=== PATIENT | male | born 1945 | race Caucasian/White ===

== ENCOUNTER 2017-08-07 13:49 | Inpatient (IN) | payer OTHER, MEDICARE ==
[2017-08-07] VITALS (12 sets, daily range): BP systolic 101–158; BP diastolic 63–100; PULSE 96–145; RESP 16–32; TEMP 99.3–99.9; O2SAT 92–98
[~2017-08-07 13:49] MED LIST: ALLO300T2 PO; ASPI81 PO; BACT800T5 PO; BETH25 PO; CARD4TAB2 PO; CIME400; CLIN150 PO; FISH1000 PO; FLON0.053; HUMALOG SQ; LANTUSP SQ; LEVO.15 PO; LORTA5 PO; OMEP20TA PO; RAMI5CAP36 PO; SIMV80TA PO; VITA400C28 PO; ZOLO50TA PO
[2017-08-07] MEDS ORDERED: VITA2000 PO (14:09)
[2017-08-07] MEDS ORDERED: PRAM0.5T PO (14:09)
[2017-08-07] MEDS ORDERED: ASPI-516 CHEW (14:09)
[2017-08-07] MEDS ORDERED: BETH25TA2 PO (14:09)
[2017-08-07] MEDS ORDERED: DOXA4TAB3 PO (14:09)
[2017-08-07] MEDS ORDERED: LANTUS2P SQ (14:09)
[2017-08-07] MEDS ORDERED: HUMALOG SQ (14:09)
[2017-08-07] MEDS ORDERED: RAMI5CAP PO (14:09)
[2017-08-07] MEDS ORDERED: PRIL20TA2 PO (14:09)
[2017-08-07] MEDS ORDERED: LEVO125T4 PO (14:09)
[2017-08-07] MEDS ORDERED: ATOR40TA16 PO (14:09)
[2017-08-07] MEDS ORDERED: TRAM-388 PO (14:09)
[2017-08-07] MEDS ORDERED: SERT-132 PO (14:09)
[2017-08-07] MEDS ORDERED: ALLO100T PO (14:09)
[2017-08-07] MEDS ORDERED: SODIUM CHLORIDE 0.9% FLUSH 10 ML FLUSH IVF PRN (14:30)
[2017-08-07 15:01] LABS: AUTOMATED NEUTROPHIL # 5.6 TH/MM3 (1.8-7.7); BASOPHIL % 0.2 % (0.0-2.0); EOSINOPHIL # 0.1 TH/MM3 (0-0.4); EOSINOPHIL % 1.5 % (0.0-4.0); HEMATOCRIT 36.3 % (39.0-51.0); HEMOGLOBIN 11.8 GM/DL (13.0-17.0); LYMPH % 15.9 % (9.0-44.0); LYMPHOCYTE # 1.2 TH/MM3 (1.0-4.8); MEAN CELL VOLUME 87.3 FL (80.0-100.0); MEAN CORPUSCULAR HEMOGLOBIN 28.3 PG (27.0-34.0); MEAN CORPUSCULAR HGB CONC 32.4 % (32.0-36.0); MEAN PLATELET VOLUME 8.2 FL (7.0-11.0); MONO % 9.1 % (0.0-8.0); MONOCYTE # 0.7 TH/MM3 (0-0.9); NEUT % 73.3 % (16.0-70.0); PLATELET COUNT 189 TH/MM3 (150-450); RED BLOOD COUNT 4.16 MIL/MM3 (4.50-5.90); RED CELL DISTRIBUTION WIDTH 18.6 % (11.6-17.2); WHITE BLOOD COUNT 7.7 TH/MM3 (4.0-11.0)
--- NOTE | 2017-08-07 15:02 | RADRPT ---
EXAM DATE/TIME: 08/07/2017 14:39 [place] COMPARISON: CHEST SINGLE AP, April 14, 2010, 13:14. INDICATIONS : Chest pain, shortness of breath MEDICAL HISTORY : Hypertension. SURGICAL HISTORY : None. ENCOUNTER: Initial ACUITY: 1 day PAIN SCORE: 3/10 LOCATION: chest FINDINGS: A single view of the chest demonstrates some increased interstitial markings bilaterally with promine nce of the pulmonary vasculature. No definite pleural effusions. The heart size is diffusely enlarged . The bony structures are grossly intact. CONCLUSION: Pulmonary venous congestion versus early edema. Moderate cardiomegaly.. Luiz Frey MD on August 07, 2017 at 14:59 Board Certified Radiologist. This report was verified electronically.
[2017-08-07 15:18] LABS: ALBUMIN 2.8 GM/DL (3.4-5.0); ALT (GPT) 25 U/L (12-78); AST (GOT) 17 U/L (15-37); BICARBONATE 23.3 MEQ/L (21.0-32.0); BLOOD UREA NITROGEN 25 MG/DL (7-18); CALCIUM 8.1 MG/DL (8.5-10.1); CHLORIDE 108 MEQ/L (98-107); GLOMERULAR FILTRATION RATE 40 ML/MIN (>89); GLUCOSE,RANDOM 200 MG/DL (74-106); SODIUM (NA) 139 MEQ/L (136-145)
[2017-08-07 15:20] LABS: ALKALINE PHOSPHATASE 54 U/L (45-117); TOTAL BILIRUBIN ADULT 0.7 MG/DL (0.2-1.0); TOTAL PROTEIN 6.4 GM/DL (6.4-8.2); TROPONIN I 0.17 NG/ML (0.02-0.05)
[2017-08-07] MEDS ORDERED: FUROSEMIDE 40 MG/4 ML VIAL IV PUSH ONE (16:15)
[2017-08-07] MEDS ORDERED: HEPARIN SODIUM - IV 10,000 UNITS/10 ML VIAL IV ONE ×2 (16:15→17:45)
[2017-08-07] MEDS ORDERED: HEPARIN-D5W 25,000 U/250 ML 250 ML IV PRN ×2 (16:15→17:45)
--- NOTE | 2017-08-07 16:30 | PD ---
HPI Chief Complaint: Cardiac Complaint Time Seen by Provider: 14:10 Travel History International Travel<30 days: No Contact w/Intl Traveler<30days: No Traveled to known affect area: No History of Present Illness HPI 72-year-old male came to the emergency room with history of substernal chest pressure that started yesterday. Patient says pain was 4-5 out of 10 at its worst without any radiation. Pain is even at rest. No aggravating or relieving factors identified. Patient has never had this kind of pain before. He also started getting shortness of breath. This of breath was present during rest but worse with exertion. Today when it can continued patient called EMS. He was given one sublingual nitroglycerin under the tongue and 2 baby aspirin which has eased his pain significantly. Currently is 1 out of 10. Vital signs are stable. Patient has history of high blood pressure but no history of coronary artery disease. He had a cardiac ablation done 7 years ago. He is not on any blood thinners. Patient is not a smoker. [facility] Past Medical History Narrative Medical List of his past medical, surgical, social and family history is reviewed from the nursing note. Blood Disorders: No Anxiety: No Depression: Yes Heart Rhythm Problems: Yes Cancer: No Cardiovascular Problems: Yes High Cholesterol: Yes Chest Pain: No Cerebrovascular Accident: Yes Diabetes: Yes Patient Takes Glucophage: No Diminished Hearing: No Endocrine: Yes Gastrointestinal Disorders: No GERD: Yes Genitourinary: No Hypertension: Yes Immune Disorder: No Implanted Vascular Access Dvce: No Musculoskeletal: No Neurologic: No Psychiatric: Yes Reproductive: No Respiratory: Yes Shingles: Yes Thyroid Disease: Yes Past Surgical History Abdominal Surgery: Yes Cholecystectomy: Yes Eye Surgery: Yes (L CATARACT) Genitourinary Surgery: Yes Other Surgery: Yes Social History Alcohol Use: No Tobacco Use: No Substance Use: No Allergies-Medications (Allergen,Severity, Reaction): Coded Allergies: penicillin G (Unverified Allergy, Severe, Hives, 05/20/17) *MDRO Multi-Drug Resistant Organism (Unverified Allergy, Unknown, 08/11/14) MRSA 2010, 2013 Comments List of his allergies reviewed from the nursing note. Reported Meds & Prescriptions Reported Meds & Active Scripts Active Reported Aspirin 81 Mg Chew 162 Mg CHEW DAILY Vitamin D3 (Cholecalciferol) 2,000 Unit Cap 2,000 Units PO DAILY Pramipexole (Pramipexole Dihydrochloride) 0.5 Mg Tab 0.5 Mg PO HS Tramadol-Acetaminophen 37.5-325 mg Tab 1 Tab PO Q6H PRN Atorvastatin (Atorvastatin Calcium) 40 Mg Tab 40 Mg PO HS Sertraline (Sertraline HCl) 50 Mg Tab 50 Mg PO DAILY Prilosec (Omeprazole Magnesium) 20 Mg Tab 20 Mg PO DAILY Humalog Inj (Insulin Human Lispro) 1,000 Unit/10 Ml Vial 0 SQ ACHS SLIDING SCALE Max dose at bedtime:( )units; sugars < 70,(0)units; sugars 150-199,(5)units; sugars 200-249,(10)units; sugars 250-299,(15)units; sugars 300-349,(20)units; sugars more than 349,(25)units. Levothyroxine (Levothyroxine Sodium) 125 Mcg Tab 125 Mcg PO DAILY Bethanechol 25 Mg Tab 25 Mg PO DAILY Doxazosin (Doxazosin Mesylate) 4 Mg Tab 4 Mg PO HS Allopurinol 100 Mg Tab 100 Mg PO DAILY Ramipril 5 Mg Cap 5 Mg PO DAILY Lantus Inj (Insulin Glargine) 1,000 Unit/10 Ml Vial 50 Units SQ BID Narrative Medication List of his home medications reviewed from the nursing note. Review of Systems Except as stated in HPI: all other systems reviewed are Neg Cardiovascular: Positive: Chest Pain or Discomfort Respiratory: Positive: Shortness of Breath Physical Exam Narrative GENERAL: Awake, alert, moderate distress, obese SKIN: Focused skin assessment warm/dry. HEAD: Atraumatic. Normocephalic. EYES: Pupils equal and round. No scleral icterus. No injection or drainage. ENT: No nasal bleeding or discharge. Mucous membranes pink and moist. NECK: Trachea midline. No JVD. CARDIOVASCULAR: Regular rate and rhythm. No murmur appreciated. RESPIRATORY: No accessory muscle use. Clear to auscultation. Breath sounds equal bilaterally. GASTROINTESTINAL: Abdomen soft, non-tender, nondistended. Hepatic and splenic margins not palpable. MUSCULOSKELETAL: No obvious deformities. No clubbing. No cyanosis. No edema. NEUROLOGICAL: Awake and alert. No obvious cranial nerve deficits. Motor grossly within normal limits. Normal speech. PSYCHIATRIC: Appropriate mood and affect; insight and judgment normal. Data Data Last Documented VS Vital Signs Date Time Temp Pulse Resp B/P (MAP) Pulse Ox O2 Delivery O2 Flow Rate FiO2 08/07/17 14:50 96 Nasal Cannula 2.00 08/07/17 13:59 26 08/07/17 13:55 99.9 98 121/63 (82) Orders Orders Electrocardiogram (08/07/17 14:22) B-Type Natriuretic Peptide (08/07/17 14:22) Ckmb (Isoenzyme) Profile (08/07/17 14:22) Complete Blood Count With Diff (08/07/17 14:22) Comprehensive Metabolic Panel (08/07/17 14:22) Magnesium (Mg) (08/07/17 14:22) Prothrombin Time / Inr (Pt) (08/07/17 14:22) Act Partial Throm Time (Ptt) (08/07/17 14:22) Troponin I (08/07/17 14:22) Chest, Single Ap (08/07/17 14:22) Ecg Monitoring (08/07/17 14:22) Bilateral Bp Monitoring (08/07/17 14:22) Iv Access Insert/Monitor (08/07/17 14:22) Oximetry (08/07/17 14:22) Oxygen Administration (08/07/17 14:22) Sodium Chloride 0.9% Flush (Ns Flush) (08/07/17 14:30) Furosemide Inj (Lasix Inj) (08/07/17 16:15) Heparin Infusion CRYSTAL.Q1H (08/07/17 16:10) Act Partial Throm Time (Ptt) (08/07/17 16:10) Cbc No Diff, Includes Plts (08/07/17 16:10) Cbc No Diff, Includes Plts (08/10/17 06:00) Act Partial Throm Time (Ptt) (08/07/17 23:10) Occult Blood (Hemoccult) Stool (08/07/17 16:10) Admit To Inpatient (08/07/17 ) Vital Signs (Adult) Q4H (08/07/17 17:00) Activity Oob With Assistance (08/07/17 17:00) Second Grade Teacher / Telemetry .CONTINUOUS (08/07/17 17:00) Intake + Output CRYSTAL.QSHIFT (08/07/17 17:00) Sodium Chloride 0.9% Flush (Ns Flush) (08/07/17 17:00) Sodium Chloride 0.9% Flush (Ns Flush) (08/07/17 21:00) Basic Metabolic Panel (Bmp) (08/08/17 06:00) Complete Blood Count With Diff (08/08/17 06:00) Creatine Kinase (Cpk) (08/07/17 20:40) Creatine Kinase (Cpk) (08/08/17 02:40) Troponin I (08/07/17 20:40) Troponin I (08/08/17 02:40) Electrocardiogram (08/07/17 20:40) Electrocardiogram (08/08/17 02:40) Case Management Consult (08/07/17 17:00) Naloxone Inj (Narcan Inj) (08/07/17 17:00) Inpatient Certification (08/07/17 ) Consult Cardiology (08/07/17 ) Admit Order (Ed Use Only) (08/07/17 17:02) Labs Laboratory Tests Test 08/07/17 14:40 08/07/17 16:18 White Blood Count 7.7 TH/MM3 Red Blood Count 4.16 MIL/MM3 Hemoglobin 11.8 GM/DL Hematocrit 36.3 % Mean Corpuscular Volume 87.3 FL Mean Corpuscular Hemoglobin 28.3 PG Mean Corpuscular Hemoglobin Concent 32.4 % Red Cell Distribution Width 18.6 % Platelet Count 189 TH/MM3 Mean Platelet Volume 8.2 FL Neutrophils (%) (Auto) 73.3 % Lymphocytes (%) (Auto) 15.9 % Monocytes (%) (Auto) 9.1 % Eosinophils (%) (Auto) 1.5 % Basophils (%) (Auto) 0.2 % Neutrophils # (Auto) 5.6 TH/MM3 Lymphocytes # (Auto) 1.2 TH/MM3 Monocytes # (Auto) 0.7 TH/MM3 Eosinophils # (Auto) 0.1 TH/MM3 Basophils # (Auto) 0.0 TH/MM3 CBC Comment DIFF FINAL Differential Comment Prothrombin Time 11.0 SEC Prothromb Time International Ratio 1.0 RATIO Activated Partial Thromboplast Time 28.2 SEC 28.6 SEC Blood Urea Nitrogen 25 MG/DL Creatinine 1.70 MG/DL Random Glucose 200 MG/DL Total Protein 6.4 GM/DL Albumin 2.8 GM/DL Calcium Level 8.1 MG/DL Magnesium Level 2.0 MG/DL Alkaline Phosphatase 54 U/L Aspartate Amino Transf (AST/SGOT) 17 U/L Alanine Aminotransferase (ALT/SGPT) 25 U/L Total Bilirubin 0.7 MG/DL Sodium Level 139 MEQ/L Potassium Level 4.5 MEQ/L Chloride Level 108 MEQ/L Carbon Dioxide Level 23.3 MEQ/L Anion Gap 8 MEQ/L Estimat Glomerular Filtration Rate 40 ML/MIN Total Creatine Kinase 72 U/L Troponin I 0.17 NG/ML B-Type Natriuretic Peptide 245 PG/ML MDM Medical Decision Making Medical Screen Exam Complete: Yes Emergency Medical Condition: Yes Medical Record Reviewed: Yes Interpretation(s) Twelve-lead EKG was reviewed by me. Normal sinus rhythm, normal axis, right bundle branch block. Heart rate of 96 bpm. Differential Diagnosis ACS, non-STEMI, unstable angina, CHF Narrative Course 4:15 PM blood test results are back. Troponin and BNP are elevated. I've given him 40 mg of IV Lasix and started him on heparin bolus and drip. Patient will need to be admitted to the CICU. Awaiting for the hospitalist to call back. Critical Care Narrative Aggregate critical care time was 30 minutes. Time to perform other separately billable procedures was not included in the critical care time. My time did not include minutes spent treating any other patients simultaneously or on activities that did not directly contribute to the patient's treatment. The services I provided to this patient were to treat and/or prevent clinically significant deterioration that could result in: Non-STEMI, heparin bolus and drip I provided critical care services requiring my management, as noted below: Chart data review, documentation time, medication orders and management, vital sign assessments/reviewing monitor data, ordering and reviewing lab tests, ordering and interpreting/reviewing x-rays and diagnostic studies, care of the patient and discussion of the patient with the admitting physicians. Procedures EKG Prior to Arrival: No Diagnosis Primary Impression: Non-STEMI (non-ST elevated myocardial infarction) Additional Impression: Congestive heart failure Qualified Codes: I50.9 - Heart failure, unspecified Admitting Information Admitting Physician Requests: Chandni Orellana MD Aug 07, 2017 16:30
[2017-08-07] MEDS ORDERED: NALOXONE HCL 0.4 MG/ML AMP IV PUSH PRN (17:00)
[2017-08-07] MEDS ORDERED: SODIUM CHLORIDE 0.9% FLUSH 10 ML FLUSH IV FLUSH PRN (17:00)
[2017-08-07] MEDS ORDERED: DILTIAZEM HCL 25 MG/5 ML VIAL IV ONE (19:30)
--- NOTE | 2017-08-07 19:30 | HHI.HP ---
[facility] Julian Hartman MD Admission Diagnosis non-STEMI, congestive heart failure Diagnoses: Travel History International Travel<30 Days: No Contact w/Intl Traveler <30 Da: No Traveled to Known Affected Are: No History of Present Illness hx from patient , er md, patient's er nurse and review of med records started yesterday, chest pain and shortness of breath started feeling better when ambulance came and given something this morning again, he has shortness of breath , and finally decided to call ems again and came today now the pain is more on left , yesterday was middle of chest pain no radiation of pain has chronic neck pain from arthritis - on pain managment docs with shots denies peirpheral edema no recent prolonged travels no blood in stool or urine at home but was started on heparin drip in ER and urine now is starting to have blood in urine no water pills at home no chf hx sees dr dias because he had ablation for afib no fever/ no nausea/ no vomiting/ no other symptoms has been having trouble trying to get up and roll over had a fall yesterday Review of Systems Except as stated in HPI: all other systems reviewed are Neg Past Family Social History Past Medical History htn dm afib sleep apnea on cpap at night not on anticoagulation apart from asa chronic kidney disease TIA hypothyroidism Past Surgical History coronary angiogram cardiac ablation cholecystectomy Allergies: Coded Allergies: penicillin G (Unverified Allergy, Severe, Hives, 05/20/17) *MDRO Multi-Drug Resistant Organism (Unverified Allergy, Unknown, 08/11/14) MRSA 2010, 2013 Family History mother- alzeimers dad- cad, stroke Social History never smoked no etoh drinking, no drugs still drives lives on his own, have a rn patient care Physical Exam Vital Signs Vital Signs Date Time Temp Pulse Resp B/P (MAP) Pulse Ox O2 Delivery O2 Flow Rate FiO2 08/07/17 18:53 144 08/07/17 17:28 96 16 158/100 (119) 95 08/07/17 14:50 96 Nasal Cannula 2.00 08/07/17 14:50 Room Air 08/07/17 13:59 26 95 Nasal Cannula 08/07/17 13:55 99.9 98 16 121/63 (82) 92 Physical Exam GENERAL: This is a well-nourished, well-developed patient, in no apparent distress.obese, cushionoid look SKIN: No rashes, ecchymoses or lesions. Cool and dry. HEAD: Atraumatic. Normocephalic. No temporal or scalp tenderness. EYES: No scleral icterus. No injection or drainage. ENT: Nose without bleeding, purulent drainage or septal hematoma. Airway patent. NECK: Trachea midline. No JVD CARDIOVASCULAR: Regular rate and rhythm without murmurs, gallops, or rubs. RESPIRATORY: bilaterally decreased air entry GASTROINTESTINAL: Abdomen soft, non-tender, nondistended.truncal obesity. No guarding. MUSCULOSKELETAL: Extremities without clubbing, cyanosis, or edema. No calf tenderness. NEUROLOGICAL: Awake and alert. Motor and sensory grossly within normal limits. Normal speech. Laboratory Laboratory Tests Test 08/07/17 14:40 08/07/17 16:18 White Blood Count 7.7 Red Blood Count 4.16 Hemoglobin 11.8 Hematocrit 36.3 Mean Corpuscular Volume 87.3 Mean Corpuscular Hemoglobin 28.3 Mean Corpuscular Hemoglobin Concent 32.4 Red Cell Distribution Width 18.6 Platelet Count 189 Mean Platelet Volume 8.2 Neutrophils (%) (Auto) 73.3 Lymphocytes (%) (Auto) 15.9 Monocytes (%) (Auto) 9.1 Eosinophils (%) (Auto) 1.5 Basophils (%) (Auto) 0.2 Neutrophils # (Auto) 5.6 Lymphocytes # (Auto) 1.2 Monocytes # (Auto) 0.7 Eosinophils # (Auto) 0.1 Basophils # (Auto) 0.0 CBC Comment DIFF FINAL Differential Comment Prothrombin Time 11.0 Prothromb Time International Ratio 1.0 Activated Partial Thromboplast Time 28.2 28.6 Blood Urea Nitrogen 25 Creatinine 1.70 Random Glucose 200 Total Protein 6.4 Albumin 2.8 Calcium Level 8.1 Magnesium Level 2.0 Alkaline Phosphatase 54 Aspartate Amino Transf (AST/SGOT) 17 Alanine Aminotransferase (ALT/SGPT) 25 Total Bilirubin 0.7 Sodium Level 139 Potassium Level 4.5 Chloride Level 108 Carbon Dioxide Level 23.3 Anion Gap 8 Estimat Glomerular Filtration Rate 40 Total Creatine Kinase 72 Troponin I 0.17 B-Type Natriuretic Peptide 245 Result Diagram: 08/07/17 1440 08/07/17 1440 Imaging Last 48 hours Impressions Chest X-Ray 08/07/17 1422 Signed Impressions: Service Date/Time: August 14:39 - CONCLUSION: Pulmonary venous congestion versus early edema. Moderate cardiomegaly.. MD Rosamaria Gongora VTE Risk Assessment Caprini VTE Risk Assessment: Mod/High Risk (score >= 2) Caprini Risk Assessment Model Point Value = 1 Point Value = 2 Point Value = 3 Point Value = 5 Age 41-60 Minor surgery BMI > 25 kg/m2 Swollen legs Varicose veins or History of unexplained or recurrent spontaneous Oral contraceptives or hormone replacement Sepsis (< 1 month) Serious lung disease, including pneumonia (< 1 month) Abnormal pulmonary function Acute myocardial infarction Congestive heart failure (< 1 month) History of inflammatory bowel disease Medical patient at bed rest Age 61-74 Arthroscopic surgery Major open surgery (> 45 min) Laparoscopic surgery (> 45 min) Malignancy Confined to bed (> 72 hours) Immobilizing plaster cast Central venous access Age >= 75 History of VTE Family history of VTE Factor V Leiden Prothrombin [id number] Lupus anticoagulant Anticardiolipin antibodies Elevated serum homocysteine Heparin-induced thrombocytopenia Other congenital or acquired thrombophilia Stroke (< 1 month) Elective arthroplasty Hip, pelvis, or leg fracture Acute spinal cord injury (< 1 month) Prophylaxis Regimen Total Risk Factor Score Risk Level Prophylaxis Regimen 0-1 Low Early ambulation 2 Moderate Order ONE of the following: *Sequential Compression Device (SCD) *Heparin 5000 units SQ BID 3-4 Higher Order ONE of the following medications: *Heparin 5000 units SQ TID *Enoxaparin/Lovenox 40 mg SQ daily (WT < 150 kg, CrCl > 30 mL/min) *Enoxaparin/Lovenox 30 mg SQ daily (WT < 150 kg, CrCl > 10-29 mL/min) *Enoxaparin/Lovenox 30 mg SQ BID (WT < 150 kg, CrCl > 30 mL/min) AND/OR *Sequential Compression Device (SCD) 5 or more Highest Order ONE of the following medications: *Heparin 5000 units SQ TID (Preferred with Epidurals) *Enoxaparin/Lovenox 40 mg SQ daily (WT < 150 kg, CrCl > 30 mL/min) *Enoxaparin/Lovenox 30 mg SQ daily (WT < 150 kg, CrCl > 10-29 mL/min) *Enoxaparin/Lovenox 30 mg SQ BID (WT < 150 kg, CrCl > 30 mL/min) AND *Sequential Compression Device (SCD) Assessment and Plan Assessment and Plan Impression: chest pain- NSTEMI dyspnea- likely from CHF hematuria while on heparin in ER afib with RVR in ER_ likely from dyspnea, pain, missing meds co morbid conditions: htn dm afib sleep apnea on cpap at night not on anticoagulation apart from asa chronic kidney disease TIA hypothyroidism Plan: serial enzymes and ekg heparin drip to d.[facility] start cardizem drip tele monitoring monitor for hgb/hct VQ scan in am echo in am cardio consult resume cpap resume home meds dvt prophylaxis- scd - as pt now has hematuria Discussed Condition With patient, ER MD, ER nurse Physician Certification 2 Midnight Certification Type: Admission for Inpatient Services Order for Inpatient Services The services are ordered in accordance with Medicare regulations or non- Medicare payer requirements, as applicable. In the case of services not specified as inpatient-only, they are appropriately provided as inpatient services in accordance with the 2-midnight benchmark. Estimated LOS (days): 4 days is the estimated time the patient will need to remain in the hospital, assuming treatment plan goals are met and no additional complications. Post-Hospital Plan: Home Traci Carmona MD Aug 07, 2017 19:30
[2017-08-07] MEDS: DILTIAZEM INJ 125 MG in SODIUM CHLORIDE 0.9% INJ 100 ML IV PRN (20:47)
[2017-08-07] MEDS ORDERED: NON-FORMULARY DRUG (Pramipexole 0.5 MG) PO SCH (21:00)
[2017-08-07 21:48] LABS: HEMATOCRIT 40.1 % (39.0-51.0); HEMOGLOBIN 13.1 GM/DL (13.0-17.0); MEAN CELL VOLUME 87.3 FL (80.0-100.0); MEAN CORPUSCULAR HEMOGLOBIN 28.4 PG (27.0-34.0); MEAN CORPUSCULAR HGB CONC 32.5 % (32.0-36.0); MEAN PLATELET VOLUME 8.4 FL (7.0-11.0); PLATELET COUNT 211 TH/MM3 (150-450); RED BLOOD COUNT 4.59 MIL/MM3 (4.50-5.90); RED CELL DISTRIBUTION WIDTH 18.4 % (11.6-17.2); WHITE BLOOD COUNT 8.7 TH/MM3 (4.0-11.0)
[2017-08-07 22:10] LABS: TROPONIN I 0.25 NG/ML (0.02-0.05)
[2017-08-07] MEDS ORDERED: HEPARIN SODIUM - IV 10,000 UNITS/10 ML VIAL IV PRN ×4 (22:15→23:45)
[2017-08-07] MEDS ORDERED: METOPROLOL TARTRATE 5 MG/5 ML VIAL IV PUSH ONE (23:30)
[2017-08-07] MEDS ORDERED: GLUCAGON 1 MG/ML VIAL OTHER PRN (23:30)
[2017-08-07] MEDS ORDERED: DEXTROSE 50% IN WATER 50 ML VIAL(D50) IV PUSH PRN (23:30)
[2017-08-08] VITALS (18 sets, daily range): BP systolic 78–143; BP diastolic 56–93; PULSE 85–136; RESP 14–18; TEMP 97.4–98.7; O2SAT 93–98
[2017-08-08] MEDS: traMADol/ACETAMINOPHEN 37.5/325 1 TAB PO PRN ×3 (00:44→13:57)
[2017-08-08 03:52] LABS: AUTOMATED NEUTROPHIL # 4.4 TH/MM3 (1.8-7.7); BASOPHIL % 0.2 % (0.0-2.0); EOSINOPHIL # 0.1 TH/MM3 (0-0.4); EOSINOPHIL % 1.6 % (0.0-4.0); HEMATOCRIT 36.8 % (39.0-51.0); HEMOGLOBIN 11.8 GM/DL (13.0-17.0); LYMPH % 20.9 % (9.0-44.0); LYMPHOCYTE # 1.4 TH/MM3 (1.0-4.8); MEAN CELL VOLUME 88.1 FL (80.0-100.0); MEAN CORPUSCULAR HEMOGLOBIN 28.2 PG (27.0-34.0); MEAN CORPUSCULAR HGB CONC 32.1 % (32.0-36.0); MEAN PLATELET VOLUME 8.4 FL (7.0-11.0); MONO % 9.6 % (0.0-8.0); MONOCYTE # 0.6 TH/MM3 (0-0.9); NEUT % 67.7 % (16.0-70.0); PLATELET COUNT 179 TH/MM3 (150-450); RED BLOOD COUNT 4.18 MIL/MM3 (4.50-5.90); RED CELL DISTRIBUTION WIDTH 18.2 % (11.6-17.2); WHITE BLOOD COUNT 6.6 TH/MM3 (4.0-11.0)
[2017-08-08 04:21] LABS: BICARBONATE 26.5 MEQ/L (21.0-32.0); CALCIUM 8.2 MG/DL (8.5-10.1); CREATININE 2.17 MG/DL (0.60-1.30)
[2017-08-08 04:22] LABS: TROPONIN I 0.17 NG/ML (0.02-0.05)
[2017-08-08] MEDS: DILTIAZEM INJ 125 MG in SODIUM CHLORIDE 0.9% INJ 100 ML IV PRN (04:48)
[2017-08-08] MEDS: LEVOTHYROXINE SODIUM 125 MCG TAB PO SCH (06:38)
[2017-08-08] MEDS: INSULIN ASPART SUPPLEMENTAL SCALE SQ SCH ×4 (08:00→20:22)
[2017-08-08] MEDS: BETHANECHOL CHL 25 MG TAB PO SCH (09:00)
[2017-08-08] MEDS: SODIUM CHLORIDE 0.9% FLUSH 10 ML FLUSH IV FLUSH SCH ×2 (09:00→20:23)
[2017-08-08] MEDS ORDERED: NON-FORMULARY DRUG (Omeprazole Magnesium (Prilosec) 20 MG) PO SCH (09:00)
--- NOTE | 2017-08-08 09:33 | EKG ---
Date Performed: 08/07/2017 Time Performed: 18:51:15 PTAGE: 72 years EKG: ATRIAL FIBRILLATION WITH RAPID VENTRICULAR RESPONSE WITH ABERRANT CONDUCTION OR VENTRICULAR PREMATURE COMPLEXES RIGHT BUNDLE BRANCH BLOCK LEFT POSTERIOR FASCICULAR BLOCK ABNORMAL ECG PREVIOUS TRACING : 08/07/2017 14.01 Since previous tracing, atrial fibrillation with rapid vent ricular response has replaced Sinus rhythm . DOCTOR: René Bond Interpretating Date/Time 08/08/2017 09:33:08
--- NOTE | 2017-08-08 09:33 | EKG ---
Date Performed: 08/07/2017 Time Performed: 14:01:04 PTAGE: 72 years EKG: Sinus rhythm Right bundle branch block ABNORMAL ECG PREVIOUS TRACING : 06/27/2010 05.59 Compared to prior tracing no significant change DOCTOR: René Bond Interpretating Date/Time 08/08/2017 09:31:55
--- NOTE | 2017-08-08 09:43 | HHI.PR ---
Subjective Remarks This is a pleasant 72 y/o Male who came to ER with Chest pain, he has chronic neck pain from OA on Pain management with injections, started on Heparin drip in ER, he follows with Doctor Jose for Atrial Fibrillation Ablation, has Hypertension, DM II, Atrial Fibrillation, MUNA on CPAP at night, CKD TIA, Hypothyroidism, status post Cardiac Ablation, Admitted with diagnosis of NSTEMI and Cardiology consult in place. Patient seen by Doctor Terry Adler with diagnosis of Elevated troponin and atypical chest pain recommended for V/Q scan to rule out PE was performed and low probability for PE , he will have further ischemic workup by Cardiology stress test vs cardiac cath, seen in his bedroom in the presence of nurse Miss Aviles. Objective Vital Signs Date Time Temp Pulse Resp B/P (MAP) Pulse Ox O2 Delivery O2 Flow Rate FiO2 08/08/17 07:00 97.9 94 16 140/83 (102) 93 08/08/17 07:00 95 08/08/17 04:48 88 129/78 08/08/17 04:18 96 129/78 08/08/17 04:17 98.7 96 18 129/78 (95) 94 08/08/17 02:00 116 08/08/17 01:51 97 35 08/08/17 01:36 98.7 115 18 116/78 (91) 94 08/08/17 01:20 78/56 (63) 08/08/17 01:20 120 78/56 08/08/17 01:00 118 08/08/17 00:00 136 08/07/17 23:40 141 08/07/17 23:38 99.3 145 18 127/91 (103) 95 08/07/17 23:19 142 132/73 08/07/17 22:50 95 35 08/07/17 22:35 138 127/91 08/07/17 21:30 128 28 144/87 (106) 98 Nasal Cannula 4.00 08/07/17 21:15 136 26 114/79 (91) 98 Nasal Cannula 4.00 08/07/17 21:00 133 32 101/73 (82) 97 Nasal Cannula 4.00 08/07/17 20:52 134 30 137/80 (99) 97 Nasal Cannula 4.00 08/07/17 20:50 136 137/80 08/07/17 20:47 142 104/78 08/07/17 20:45 142 28 104/78 (87) 96 Nasal Cannula 3.00 08/07/17 18:53 144 08/07/17 17:28 96 16 158/100 (119) 95 08/07/17 14:50 96 Nasal Cannula 2.00 08/07/17 14:50 Room Air 08/07/17 13:59 26 95 Nasal Cannula 08/07/17 13:55 99.9 98 16 121/63 (82) 92 I/O 08/07/17 08/07/17 08/07/17 08/08/17 08/08/17 08/08/17 07:00 15:00 23:00 07:00 15:00 23:00 Intake Total 240 ml Output Total 0 ml Balance 240 ml Intake Oral 240 ml Output Urine Total 0 ml Result Diagram: 08/08/1730608/08/17306 Imaging Last Impressions Chest X-Ray 08/07/171421 Signed Impressions: Service Date/Time: August 14:39 - CONCLUSION: Pulmonary venous congestion versus early edema. Moderate cardiomegaly.. Luiz Frey MD Procedures None Other Results Laboratory Tests Test 08/07/17 14:40 08/07/17 20:20 08/08/17 03:01 08/08/17 03:07 Prothrombin Time 11.0 SEC Prothromb Time International Ratio 1.0 RATIO Blood Urea Nitrogen 25 MG/DL 35 MG/DL Creatinine 1.70 MG/DL 2.17 MG/DL Random Glucose 200 MG/DL 363 MG/DL Total Protein 6.4 GM/DL Albumin 2.8 GM/DL Calcium Level 8.1 MG/DL 8.2 MG/DL Magnesium Level 2.0 MG/DL Alkaline Phosphatase 54 U/L Aspartate Amino Transf (AST/SGOT) 17 U/L Alanine Aminotransferase (ALT/SGPT) 25 U/L Total Bilirubin 0.7 MG/DL Sodium Level 139 MEQ/L 140 MEQ/L Potassium Level 4.5 MEQ/L 4.3 MEQ/L Chloride Level 108 MEQ/L 104 MEQ/L Carbon Dioxide Level 23.3 MEQ/L 26.5 MEQ/L B-Type Natriuretic Peptide 245 PG/ML Activated Partial Thromboplast Time 62.3 SEC Total Creatine Kinase 70 U/L Troponin I 0.17 NG/ML White Blood Count 6.6 TH/MM3 Red Blood Count 4.18 MIL/MM3 Hemoglobin 11.8 GM/DL Hematocrit 36.8 % Mean Corpuscular Volume 88.1 FL Mean Corpuscular Hemoglobin 28.2 PG Mean Corpuscular Hemoglobin Concent 32.1 % Red Cell Distribution Width 18.2 % Platelet Count 179 TH/MM3 Mean Platelet Volume 8.4 FL Neutrophils (%) (Auto) 67.7 % Lymphocytes (%) (Auto) 20.9 % Monocytes (%) (Auto) 9.6 % Eosinophils (%) (Auto) 1.6 % Basophils (%) (Auto) 0.2 % Neutrophils # (Auto) 4.4 TH/MM3 Lymphocytes # (Auto) 1.4 TH/MM3 Monocytes # (Auto) 0.6 TH/MM3 Eosinophils # (Auto) 0.1 TH/MM3 Basophils # (Auto) 0.0 TH/MM3 CBC Comment DIFF FINAL Differential Comment Anion Gap 10 MEQ/L Estimat Glomerular Filtration Rate 30 ML/MIN Objective Remarks GENERAL: This is a well-nourished, well-developed patient, in no apparent distress.obese. SKIN: No rashes, ecchymoses or lesions. Cool and dry. HEAD: Atraumatic. Normocephalic. No temporal or scalp tenderness. EYES: No scleral icterus. No injection or drainage. ENT: Nose without bleeding, purulent drainage or septal hematoma. Airway patent. NECK: Trachea midline. No JVD CARDIOVASCULAR: Regular rate and rhythm without murmurs, gallops, or rubs. RESPIRATORY: bilaterally decreased air entry GASTROINTESTINAL: Abdomen soft, non-tender, nondistended.truncal obesity. No guarding. MUSCULOSKELETAL: Extremities without clubbing, cyanosis, or edema. No calf tenderness. NEUROLOGICAL: Awake and alert. Motor and sensory grossly within normal limits. Normal speech. Medications and IVs Current Medications Medications (Trade) Dose Ordered Sig/Az Route Start Time Stop Time Status Last Admin (NS Flush) 2 ml UNSCH PRN IV FLUSH 08/07/17 17:00 (NS Flush) 2 ml BID IV FLUSH 08/07/17 21:00 (Narcan Inj) 0.4 mg UNSCH PRN IV PUSH 08/07/17 17:00 Diltiazem HCl 125 mg/Sodium Chloride 125 ml @ 5 mls/hr TITRATE PRN IV 08/07/17 19:30 08/08/17 04:48 (Zyloprim) 100 mg DAILY PO 08/08/17 09:00 (Lipitor) 40 mg HS PO 08/07/17 21:00 (Urecholine) 25 mg DAILY PO 08/08/17 09:00 (Cardura) 4 mg HS PO 08/07/17 21:00 (Synthroid) 125 mcg DAILY@0600 PO 08/08/17 06:00 08/08/17 06:38 (Altace) 5 mg DAILY PO 08/08/17 09:00 (Zoloft) 50 mg DAILY PO 08/08/17 09:00 (Ultracet 37.5-325 Mg) 1 tab Q6H PRN PO 08/07/17 19:45 08/08/17 06:36 (Protonix) 20 mg DAILY PO 08/08/17 09:00 (Mirapex) 0.5 mg HS PO 08/07/17 21:00 (D50w (Vial) Inj) 50 ml UNSCH PRN IV PUSH 08/07/17 23:30 (Glucagon Inj) 1 mg UNSCH PRN OTHER 08/07/17 23:30 (NovoLOG SUPPLEMENTAL SCALE) 1 ACHS SLIDING SCALE SQ 08/08/17 08:00 A/P Assessment and Plan 1. NSTEMI Hospitalized, on Cardiac Enzymes, Cardiac monitoring, Heparin drip, Cardizem drip, V/Q scan, Echocardiogram, Patient seen by Doctor Terry Adler with diagnosis of Elevated troponin and atypical chest pain recommended for V/Q scan to rule out PE was performed and low probability for PE, he will have further ischemic workup by Cardiology stress test vs cardiac cath, 2. Hematuria while on Heparin, will need further Urologic workup as outpatient. 3. Atrial Fibrillation with RVR on Cardizem drip, History of Cardiac ablation. 4. Hypertension controlled. 5. DM II Uncontrolled sliding scale, Cardiac and Diabetic Diet. Hemoglobin A1C 6. MUNA on CPAP at night 7. CKD III 8. Hypothyroidism continue Hormonal replacement. DVT prophylaxis with SCDs due to Hematuria. Discharge Planning Once cleared by operations staff specialist security. Martin Hays MD Aug 08, 2017 09:43
[2017-08-08] MEDS: ALLOPURINOL 100 MG TAB PO SCH (09:47)
[2017-08-08] MEDS: PANTOPRAZOLE SOD 20 MG DELAYED RELEASE TAB PO SCH (09:47)
[2017-08-08] MEDS: RAMIPRIL 5 MG CAP PO SCH (09:47)
[2017-08-08] MEDS: SERTRALINE HCL 50 MG TAB PO SCH (09:47)
--- NOTE | 2017-08-08 11:22 | MB ---
cc: TERRY KELLY DO DATE OF CONSULTATION 08/08/2017 REASON FOR CONSULTATION Chest pain with elevated troponins. HISTORY OF PRESENT ILLNESS Pedro Otto is a pleasant 72-year-old male who states that around two days ago he started getting pain in the lower part of his chest. He was also noticing he was short of breath. He said that the pain was somewhat achy versus sharp, but not stabbing in nature. It did not radiate anywhere. An ambulance was called and he decided he would stay home. He then started noticing around 24 hours later that the pain was back and now was somewhat on to the left side of the chest. He started noticing once again that he was short of breath and because of this he decided he would report to the emergency room. While here, he was found to have a mildly elevated troponin peaking at 0.25. He was started on a heparin drip and did notice some hematuria. Lastly, he presented in normal sinus rhythm, but then went into atrial fibrillation with rapid ventricular response. He is currently on a Cardizem drip which has controlled his rate. PAST MEDICAL HISTORY 1. History of atrial fibrillation. 2. Diabetes mellitus 3. Chronic kidney disease 4. Hypertension 5. Sleep apnea on C-PAP at night 6. TIA 7. Hypothyroidism PAST SURGICAL HISTORY 1. Atrial flutter ablation (June 26, 2010) 2. Cholecystectomy ALLERGIES PENICILLIN MEDICATIONS 1. Bethanechol 25 mg daily 2. Lipitor 40 mg every night 3. Doxazosin 4 mg every night 4. Ramipril 5 mg daily 5. Aspirin 162 mg daily 6. Tramadol/acetaminophen 37.5/325 every 6 hours as needed for pain. 7. Sertraline 50 mg daily 8. Pramipexole 0.5 mg every night 9. Omeprazole 20 mg daily 10. Lantus 50 units b.i.d. 11. Humalog sliding scale 12. Synthroid 125 mcg daily 13. Allopurinol 100 mg daily FAMILY HISTORY Denies premature coronary artery disease or sudden cardiac within the family. SOCIAL HISTORY The patient never smoked. He denies a history of alcohol or drug abuse. 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 REVIEW OF SYSTEMS 14-systems were reviewed including osteopathic pertinent positives and negatives as above otherwise negative. PHYSICAL EXAMINATION VITAL SIGNS: Temperature 98.7, heart rate 96, blood pressure 129/78, respirations 18, pulse ox 94% on 4 liters. GENERAL: The patient appears well in no acute distress, alert awake and oriented x3. Extraocular muscles intact. Mucous membranes moist. NECK: Supple. No JVD at 45 degrees. No carotid bruits heard bilaterally. Carotid upstroke is brisk in nature. HEART: Irregularly irregular. Positive first and second heart sounds with a 1/6 holosystolic murmur noted at the apex. LUNGS: Clear to auscultation bilaterally. No wheezes, rales or rhonchi. ABDOMEN: Soft, nontender and nondistended. No organomegaly noted. EXTREMITIES: Show no clubbing, cyanosis or edema. Femoral and distal pulses intact bilaterally. NEUROLOGIC: No focal deficits. SKIN: Warm, dry and intact. OSTEOPATHIC: No kyphoscoliosis, lordosis or paraspinal tender points. LABORATORY FINDINGS Hemoglobin 11.8, hematocrit 36.8, platelets 179. Potassium 4.3, BUN 35, creatinine 2.17, troponin 0.25. BNP 245. Electrocardiogram (August 07, 2017 at 1851) atrial fibrillation with rapid ventricular response, right bundle branch block, left posterior fascicular block. IMPRESSIONS 1. Elevated troponin, possible type 1 versus type 2 2. Chest pain atypical for coronary insufficiency. 3. Dyspnea on exertion and at rest. 4. Hematuria while on heparin drip. 5. History of atrial fibrillation status post atrial flutter ablation (2009) now in atrial fibrillation with rapid ventricular response. 6. Diabetes mellitus 7. Hypertension 8. Sleep apnea on C-PAP 9. Chronic kidney disease 10. TIA 11. Hypothyroidism RECOMMENDATIONS 1. Mr. Otto presented with atypical chest pain which has removed from the lower part of his chest into the mid part of his chest and is associated with shortness of breath. I feel that it is reasonable to consider VQ scan to rule out possible pulmonary embolus. 2. If negative for pulmonary embolus, we will discuss with him further about ischemic workup of stress testing versus cardiac catheterization. 3. It appears now that he is in atrial fibrillation and started on Cardizem drip, we will plan on placing him on Cardizem p.o. to further try to rate control him. 4. He has a CHADS-VASc score of five and may need to be anticoagulated for his atrial fibrillation depending on the hospital course. 5. Because of the hematuria, he eventually should be evaluated from a urological standpoint whether inpatient or outpatient to rule out possible abnormalities or malignancies from a bladder standpoint. 6. Further recommendations will be made based on the hospital course. Thank you for allowing me to see Pedro Otto. If there are any questions, please do not hesitate to call. Terry Kelly DO VGP/DJL /10:29 AM /11:09 AM
--- NOTE | 2017-08-08 12:10 | RADRPT ---
EXAM DATE/TIME: 08/08/2017 11:19 [facility] COMPARISON: CHEST SINGLE AP, August 07, 2017, 14:39. INDICATIONS : Chest pain and dyspnea. DOSE: 8.5 mCi Tc99m MAA IV 0.5 mCi Tc99m DTPA aerosol MEDICAL HISTORY : Diabetes mellitus type 2. Hypertension. Congestive heart failure. SURGICAL HISTORY : Cholecystectomy. Ablation. ENCOUNTER: Initial ACUITY: 2 days PAIN SCALE: 4/10 LOCATION: chest TECHNIQUE: Following five minutes of tidal breathing of DTPA aerosol, planar images of the lungs were performed in eight projections. The patient was then injected with MAA, and eight-view perfusion scan was perf ormed. FINDINGS: The comparison chest x-ray examination demonstrated pulmonary venous congestion versus early pulmonar y edema. There is a diffusely inhomogeneous pattern of aerosol delivery throughout both lungs. No large focal ventilatory defects are seen. The perfusion lung scan demonstrates a homogenous pattern of uptake in both lungs. No segmental or s ubsegmental defects are seen. CONCLUSION: Low probability for pulmonary embolism. John Neville MD on August 08, 2017 at 12:07 Board Certified Radiologist. This report was verified electronically.
[2017-08-08] MEDS: DILTIAZEM HCL 60 MG TAB PO SCH ×3 (12:18→23:54)
[2017-08-08] MEDS: PRAMIPEXOLE DIHYDROCHLORIDE 0.25 MG TAB PO SCH ×2 (20:22→20:25)
[2017-08-08] MEDS: ATORVASTATIN 40 MG TAB PO SCH ×2 (20:22→20:25)
[2017-08-08] MEDS: DOXAZOSIN MESYLATE 4 MG TAB PO SCH ×2 (20:22→20:25)
[2017-08-09] VITALS (24 sets, daily range): BP systolic 115–147; BP diastolic 62–88; PULSE 71–126; RESP 14–20; TEMP 97.8–98.2; O2SAT 92–98
[2017-08-09] MEDS: traMADol/ACETAMINOPHEN 37.5/325 1 TAB PO PRN ×2 (00:04→23:32)
[2017-08-09] MEDS: DILTIAZEM HCL 60 MG TAB PO SCH ×4 (05:31→23:32)
[2017-08-09] MEDS: LEVOTHYROXINE SODIUM 125 MCG TAB PO SCH (05:31)
[2017-08-09] MEDS: ALLOPURINOL 100 MG TAB PO SCH (09:40)
[2017-08-09] MEDS: RAMIPRIL 5 MG CAP PO SCH (09:41)
[2017-08-09] MEDS: ASPIRIN 81 MG CHEW TAB CHEW SCH (09:41)
[2017-08-09] MEDS: SODIUM CHLORIDE 0.9% FLUSH 10 ML FLUSH IV FLUSH SCH ×2 (09:41→20:11)
[2017-08-09] MEDS: SERTRALINE HCL 50 MG TAB PO SCH (09:41)
[2017-08-09] MEDS: PANTOPRAZOLE SOD 20 MG DELAYED RELEASE TAB PO SCH (09:41)
[2017-08-09] MEDS: INSULIN ASPART SUPPLEMENTAL SCALE SQ SCH ×4 (09:41→20:20)
[2017-08-09] MEDS: BETHANECHOL CHL 25 MG TAB PO SCH (09:48)
--- NOTE | 2017-08-09 11:26 | HHI.PR ---
Subjective Remarks This is a pleasant 72 y/o Male who came to ER with Chest pain, he has chronic neck pain from OA on Pain management with injections, started on Heparin drip in ER, he follows with Doctor Jose for Atrial Fibrillation Ablation, has Hypertension, DM II, Atrial Fibrillation, MUNA on CPAP at night, CKD TIA, Hypothyroidism, status post Cardiac Ablation, Admitted with diagnosis of NSTEMI and Cardiology consult in place. Patient seen by Doctor Terry Adler with diagnosis of Elevated troponin and atypical chest pain recommended for V/Q scan to rule out PE was performed and low probability for PE , he will have further ischemic workup by Cardiology stress test vs cardiac cath, seen in his bedroom in the presence of nurse Miss Aviles. 08/09: Seen in his bedroom in the presence of nurse Miss Quiñones, biology specialist doctor Terry Adler In to see the patient recommended for Cardiac Stress test for tomorrow morning. Atrial Fibrillation now in sinus rhythm resolved hematuria for outpatient Urology workup to rule out malignancy. no nausea, vomit or diarrhea. Objective Vital Signs Date Time Temp Pulse Resp B/P (MAP) Pulse Ox O2 Delivery O2 Flow Rate FiO2 08/09/17 08:45 88 08/09/17 08:45 98.1 85 20 132/75 (94) 94 08/09/17 06:00 86 08/09/17 05:00 116 08/09/17 05:00 98.2 115 14 147/88 (107) 98 08/09/17 04:00 110 08/09/17 03:00 112 08/09/17 02:00 122 08/09/17 01:00 116 08/09/17 00:20 98.2 113 14 130/73 (92) 98 08/09/17 00:19 96 35 08/09/17 00:19 96 BiPAP 35 08/09/17 00:00 126 08/08/17 23:00 103 08/08/17 22:00 106 08/08/17 21:13 98.0 109 14 143/93 (110) 98 08/08/17 21:00 104 08/08/17 20:00 112 08/08/17 19:00 97 08/08/17 17:36 94 Nasal Cannula 2.00 08/08/17 15:00 85 08/08/17 15:00 97.4 85 14 118/79 (92) 94 08/08/17 14:59 14 I/O 08/08/17 08/08/17 08/08/17 08/09/17 08/09/17 08/09/17 07:00 15:00 23:00 07:00 15:00 23:00 Intake Total 240 ml 800 ml Output Total 0 ml 450 ml Balance 240 ml 800 ml -450 ml Intake Oral 240 ml 800 ml Output Urine Total 0 ml 450 ml # Voids 7 # Bowel Movements 1 Result Diagram: 08/08/17 0307 08/08/17 0307 Imaging Last Impressions Lung Scan-VQ Nuclear Medicine 08/08/17 0000 Signed Impressions: Service Date/Time: Tuesday, August 08, 2017 11:19 - CONCLUSION: Low probability for pulmonary embolism. John Neville MD Chest X-Ray 08/07/17 1422 Signed Impressions: Service Date/Time: August 14:39 - CONCLUSION: Pulmonary venous congestion versus early edema. Moderate cardiomegaly.. Luiz Frey MD Procedures None Other Results Laboratory Tests Test 08/07/17 14:40 08/07/17 20:20 08/08/17 03:01 08/08/17 03:07 Prothrombin Time 11.0 SEC Prothromb Time International Ratio 1.0 RATIO Blood Urea Nitrogen 25 MG/DL 35 MG/DL Creatinine 1.70 MG/DL 2.17 MG/DL Random Glucose 200 MG/DL 363 MG/DL Total Protein 6.4 GM/DL Albumin 2.8 GM/DL Calcium Level 8.1 MG/DL 8.2 MG/DL Magnesium Level 2.0 MG/DL Alkaline Phosphatase 54 U/L Aspartate Amino Transf (AST/SGOT) 17 U/L Alanine Aminotransferase (ALT/SGPT) 25 U/L Total Bilirubin 0.7 MG/DL Sodium Level 139 MEQ/L 140 MEQ/L Potassium Level 4.5 MEQ/L 4.3 MEQ/L Chloride Level 108 MEQ/L 104 MEQ/L Carbon Dioxide Level 23.3 MEQ/L 26.5 MEQ/L B-Type Natriuretic Peptide 245 PG/ML Activated Partial Thromboplast Time 62.3 SEC Total Creatine Kinase 70 U/L Troponin I 0.17 NG/ML White Blood Count 6.6 TH/MM3 Red Blood Count 4.18 MIL/MM3 Hemoglobin 11.8 GM/DL Hematocrit 36.8 % Mean Corpuscular Volume 88.1 FL Mean Corpuscular Hemoglobin 28.2 PG Mean Corpuscular Hemoglobin Concent 32.1 % Red Cell Distribution Width 18.2 % Platelet Count 179 TH/MM3 Mean Platelet Volume 8.4 FL Neutrophils (%) (Auto) 67.7 % Lymphocytes (%) (Auto) 20.9 % Monocytes (%) (Auto) 9.6 % Eosinophils (%) (Auto) 1.6 % Basophils (%) (Auto) 0.2 % Neutrophils # (Auto) 4.4 TH/MM3 Lymphocytes # (Auto) 1.4 TH/MM3 Monocytes # (Auto) 0.6 TH/MM3 Eosinophils # (Auto) 0.1 TH/MM3 Basophils # (Auto) 0.0 TH/MM3 CBC Comment DIFF FINAL Differential Comment Anion Gap 10 MEQ/L Estimat Glomerular Filtration Rate 30 ML/MIN Objective Remarks GENERAL: Obese patient in no acute distress. SKIN: No rashes, ecchymoses or lesions. Cool and dry. HEAD: Atraumatic. Normocephalic. No temporal or scalp tenderness. EYES: No scleral icterus. No injection or drainage. ENT: Nose without bleeding, purulent drainage or septal hematoma. Airway patent. NECK: Trachea midline. No JVD CARDIOVASCULAR: Regular rate and rhythm without murmurs, gallops, or rubs. RESPIRATORY: bilaterally decreased air entry GASTROINTESTINAL: Abdomen soft, non-tender, nondistended.truncal obesity. No guarding. MUSCULOSKELETAL: Extremities without clubbing, cyanosis, or edema. No calf tenderness. NEUROLOGICAL: Awake and alert. Motor and sensory grossly within normal limits. Normal speech. Medications and IVs Current Medications Medications (Trade) Dose Ordered Sig/Az Route Start Time Stop Time Status Last Admin (NS Flush) 2 ml UNSCH PRN IV FLUSH 08/07/17 17:00 (NS Flush) 2 ml BID IV FLUSH 08/07/17 21:00 08/09/17 09:41 (Narcan Inj) 0.4 mg UNSCH PRN IV PUSH 08/07/17 17:00 Diltiazem HCl 125 mg/Sodium Chloride 125 ml @ 5 mls/hr TITRATE PRN IV 08/07/17 19:30 08/08/17 04:48 (Zyloprim) 100 mg DAILY PO 08/08/17 09:00 08/09/17 09:40 (Lipitor) 40 mg HS PO 08/07/17 21:00 08/08/17 20:25 (Urecholine) 25 mg DAILY PO 08/08/17 09:00 08/09/17 09:48 (Cardura) 4 mg HS PO 08/07/17 21:00 08/08/17 20:25 (Synthroid) 125 mcg DAILY@0600 PO 08/08/17 06:00 08/09/17 05:31 (Altace) 5 mg DAILY PO 08/08/17 09:00 08/09/17 09:41 (Zoloft) 50 mg DAILY PO 08/08/17 09:00 08/09/17 09:41 (Ultracet 37.5-325 Mg) 1 tab Q6H PRN PO 08/07/17 19:45 08/09/17 00:04 (Protonix) 20 mg DAILY PO 08/08/17 09:00 08/09/17 09:41 (Mirapex) 0.5 mg HS PO 08/07/17 21:00 08/08/17 20:25 (D50w (Vial) Inj) 50 ml UNSCH PRN IV PUSH 08/07/17 23:30 (Glucagon Inj) 1 mg UNSCH PRN OTHER 08/07/17 23:30 (Aspirin Chew) 81 mg DAILY CHEW 08/09/17 09:00 08/09/17 09:41 (Cardizem) 60 mg Q6HR PO 08/08/17 12:00 08/09/17 05:31 (NovoLOG SUPPLEMENTAL SCALE) 1 ACHS SLIDING SCALE SQ 08/09/17 12:00 UNV (NovoLOG INJ) 5 units TIDAC SQ 08/09/17 12:00 UNV (Levemir Inj) 10 units BID SQ 08/09/17 12:00 UNV A/P Assessment and Plan 1. NSTEMI Hospitalized, on Cardiac Enzymes, Cardiac monitoring, Heparin drip, Cardizem drip, V/Q scan, Echocardiogram, Patient seen by Doctor Terry Adler with diagnosis of Elevated troponin and atypical chest pain recommended for V/Q scan to rule out PE was performed and low probability for PE, he will have further ischemic workup recommended for Stress test for tomorrow. 2. Hematuria while on Heparin, will need further Urologic workup as outpatient. 3. Atrial Fibrillation with RVR on Cardizem by mouth, History of Cardiac ablation. 4. Hypertension controlled. 5. DM II Uncontrolled Sliding scale to Medium dose, Levemir 10 units every 12 hours and scheduled 5 units with every meal and follow closely try to keep blood sugar between 140 to 180 gr/dl doing better now 240 mg/dl 6. MUNA on CPAP at night 7. CKD III stable. 8. Hypothyroidism continue Hormonal replacement. DVT prophylaxis with SCDs due to Hematuria. Discharge Planning Once cleared by biology specialist. Martin Hays MD Aug 09, 2017 11:26
[2017-08-09] MEDS: INSULIN DETEMIR 100 UNITS/ML VIAL SQ SCH ×2 (12:00→20:14)
[2017-08-09] MEDS: INSULIN ASPART 1,000 UNITS/10 ML VIAL SQ SCH ×2 (12:25→16:59)
[2017-08-09 13:42] LABS: HEMOGLOBIN A1C 10.4 % (4.3-6.0)
--- NOTE | 2017-08-09 15:37 | PD.CARD.PN ---
Subjective Subjective Remarks No events overnight Converted to normal sinus rhythm, Cardizem drip turned off Objective Medications Current Medications Medications (Trade) Dose Ordered Sig/Az Route Start Time Stop Time Status Last Admin (NS Flush) 2 ml UNSCH PRN IV FLUSH 08/07/17 17:00 (NS Flush) 2 ml BID IV FLUSH 08/07/17 21:00 08/09/17 09:41 (Narcan Inj) 0.4 mg UNSCH PRN IV PUSH 08/07/17 17:00 Diltiazem HCl 125 mg/Sodium Chloride 125 ml @ 5 mls/hr TITRATE PRN IV 08/07/17 19:30 08/08/17 04:48 (Zyloprim) 100 mg DAILY PO 08/08/17 09:00 08/09/17 09:40 (Lipitor) 40 mg HS PO 08/07/17 21:00 08/08/17 20:25 (Urecholine) 25 mg DAILY PO 08/08/17 09:00 08/09/17 09:48 (Cardura) 4 mg HS PO 08/07/17 21:00 08/08/17 20:25 (Synthroid) 125 mcg DAILY@0600 PO 08/08/17 06:00 08/09/17 05:31 (Altace) 5 mg DAILY PO 08/08/17 09:00 08/09/17 09:41 (Zoloft) 50 mg DAILY PO 08/08/17 09:00 08/09/17 09:41 (Ultracet 37.5-325 Mg) 1 tab Q6H PRN PO 08/07/17 19:45 08/09/17 00:04 (Protonix) 20 mg DAILY PO 08/08/17 09:00 08/09/17 09:41 (Mirapex) 0.5 mg HS PO 08/07/17 21:00 08/08/17 20:25 (D50w (Vial) Inj) 50 ml UNSCH PRN IV PUSH 08/07/17 23:30 (Glucagon Inj) 1 mg UNSCH PRN OTHER 08/07/17 23:30 (Aspirin Chew) 81 mg DAILY CHEW 08/09/17 09:00 08/09/17 09:41 (Cardizem) 60 mg Q6HR PO 08/08/17 12:00 08/09/17 12:25 (NovoLOG SUPPLEMENTAL SCALE) 1 ACHS SLIDING SCALE SQ 08/09/17 12:00 08/09/17 12:26 (NovoLOG INJ) 5 units TIDAC SQ 08/09/17 12:00 08/09/17 12:25 (Levemir Inj) 10 units BID SQ 08/09/17 12:00 08/09/17 12:00 Vital Signs / I&O Vital Signs Date Time Temp Pulse Resp B/P (MAP) Pulse Ox O2 Delivery O2 Flow Rate FiO2 08/09/17 14:00 79 08/09/17 13:04 81 08/09/17 12:47 79 08/09/17 11:41 Nasal Cannula 2.00 08/09/17 11:15 79 08/09/17 11:15 98.0 75 20 127/75 (92) 93 08/09/17 10:00 85 08/09/17 09:00 76 08/09/17 08:45 88 08/09/17 08:45 98.1 85 20 132/75 (94) 94 08/09/17 06:00 86 08/09/17 05:00 116 08/09/17 05:00 98.2 115 14 147/88 (107) 98 08/09/17 04:00 110 08/09/17 03:00 112 08/09/17 02:00 122 08/09/17 01:00 116 08/09/17 00:20 98.2 113 14 130/73 (92) 98 08/09/17 00:19 96 35 08/09/17 00:19 96 BiPAP 35 08/09/17 00:00 126 08/08/17 23:00 103 08/08/17 22:00 106 08/08/17 21:13 98.0 109 14 143/93 (110) 98 08/08/17 21:00 104 08/08/17 20:00 112 08/08/17 19:00 97 08/08/17 17:36 94 Nasal Cannula 2.00 I/O 08/08/17 08/08/17 08/08/17 08/09/17 08/09/17 08/09/17 07:00 15:00 23:00 07:00 15:00 23:00 Intake Total 240 ml 800 ml Output Total 0 ml 450 ml Balance 240 ml 800 ml -450 ml Intake Oral 240 ml 800 ml Output Urine Total 0 ml 450 ml # Voids 7 # Bowel Movements 1 Physical Exam GENERAL: NAD, AAOx3 SKIN: Warm and dry. HEAD: Atraumatic. Normocephalic. EYES: Pupils equal and round. No scleral icterus. No injection or drainage. ENT: No nasal bleeding or discharge. Mucous membranes pink and moist. NECK: Trachea midline. No JVD. CARDIOVASCULAR: Regular rate and rhythm. RESPIRATORY: No accessory muscle use. Clear to auscultation. Breath sounds equal bilaterally. GASTROINTESTINAL: Abdomen soft, non-tender, nondistended. Hepatic and splenic margins not palpable. MUSCULOSKELETAL: Extremities without clubbing, cyanosis, or edema. No obvious deformities. NEUROLOGICAL: Awake and alert. No obvious cranial nerve deficits. Motor grossly within normal limits. Five out of 5 muscle strength in the arms and legs. Normal speech. PSYCHIATRIC: Appropriate mood and affect; insight and judgment normal. Laboratory Laboratory Tests Test 08/09/17 04:12 Hemoglobin A1c 10.4 % Assessment and Plan Problem List: (1) PAF (paroxysmal atrial fibrillation) ICD Codes: I48.0 - Paroxysmal atrial fibrillation (2) Elevated troponin ICD Codes: R74.8 - Abnormal levels of other serum enzymes (3) History of TIA (transient ischemic attack) ICD Codes: Z86.73 - History of TIA (transient ischemic attack) Status: Acute (4) Chronic kidney disease, stage III (moderate) ICD Codes: N18.3 - Chronic kidney disease, stage III (moderate) Status: Acute (5) Hypertension ICD Codes: I10 - Hypertension Status: Acute Assessment and Plan 1) Atypical chest pain with mild elevation of troponin Possible type 1 vs 2 May be due to going back into atrial fibrillation Plan for cardiac stress test tomorrow morning 2) Afib Converted to normal sinus rhythm CHADVASc = 5 Will consider anticoagulation, but concern with hematuria Con't Cardizem PO 3) Hematuria Resolved Should have eventual Urology workup to rule out malignancy Terry Adler DO Aug 09, 2017 15:37
[2017-08-09 18:26] LABS: AUTOMATED NEUTROPHIL # 4.6 TH/MM3 (1.8-7.7); BASOPHIL % 0.3 % (0.0-2.0); EOSINOPHIL # 0.1 TH/MM3 (0-0.4); EOSINOPHIL % 1.7 % (0.0-4.0); HEMATOCRIT 36.4 % (39.0-51.0); HEMOGLOBIN 11.9 GM/DL (13.0-17.0); LYMPH % 18.8 % (9.0-44.0); LYMPHOCYTE # 1.2 TH/MM3 (1.0-4.8); MEAN CELL VOLUME 87.3 FL (80.0-100.0); MEAN CORPUSCULAR HEMOGLOBIN 28.5 PG (27.0-34.0); MEAN CORPUSCULAR HGB CONC 32.6 % (32.0-36.0); MONO % 9.1 % (0.0-8.0); MONOCYTE # 0.6 TH/MM3 (0-0.9); NEUT % 70.1 % (16.0-70.0); PLATELET COUNT 211 TH/MM3 (150-450); RED BLOOD COUNT 4.17 MIL/MM3 (4.50-5.90); RED CELL DISTRIBUTION WIDTH 18.4 % (11.6-17.2); WHITE BLOOD COUNT 6.6 TH/MM3 (4.0-11.0)
--- NOTE | 2017-08-09 18:43 | ECHRPT ---
Indication: chf CONCLUSIONS The left ventricular systolic function is mildly reduced with an estimated ejection fraction in the range of 45- 50%. Normal left ventricular size. There is assymetric septal hypertrophy. Trace to mild mitral valve regurgitation. No aortic valve regurgitation. There is mild tricuspid valve regurgitation. The estimated pulmonary arterial pressure is 32.8 mmHg. BP: / HR: Rhythm: MEASUREMENTS (Male / Female) Normal Values Technical Quality:Fair 2D ECHO LV Diastolic Diameter PLAX 4.5 cm 4.2 - 5.9 / 3.9 - 5.3 cm LV Systolic Diameter PLAX 3.6 cm IVS Diastolic Thickness 1.6 cm 0.6 - 1.0 / 0.6 - 0.9 cm LVPW Diastolic Thickness 0.9 cm 0.6 - 1.0 / 0.6 - 0.9 cm LV Relative Wall Thickness 0.6 RV Internal Dim ED PLAX 3.1 cm M-MODE Aortic Root Diameter MM 3.0 cm LA Systolic Diameter MM 4.2 cm LA Ao Ratio MM 1.4 AV Cusp Separation MM 2.0 cm DOPPLER LV E' Lateral Velocity 8.0 cm/s LV E' Septal Velocity 7.8 cm/s TR Peak Velocity 239.0 cm/s TR Peak Gradient 22.8 mmHg Right Atrial Pressure 10.0 mmHg Pulmonary Artery Systolic Pressu 32.8 mmHg Right Ventricular Systolic Press 32.8 mmHg FINDINGS LEFT VENTRICLE The left ventricular systolic function is mildly reduced with an estimated ejection fraction in the range of 45- 50%. Normal left ventricular size. There is assymetric septal hypertrophy. RIGHT VENTRICLE Normal right ventricular size and systolic function. LEFT ATRIUM The left atrial size is normal. RIGHT ATRIUM The right atrial size is normal. ATRIAL SEPTUM Normal atrial septal thickness without atrial level shunting by limited color doppler interrogation. AORTA The aortic root and proximal ascending aorta are normal in size on limited imaging. MITRAL VALVE Mild mitral valve regurgitation. Structurally normal mitral valve. AORTIC VALVE Trileaflet aortic valve. No aortic valve regurgitation. TRICUSPID VALVE Structurally normal tricuspid valve. There is mild tricuspid valve regurgitation. The estimated pulmonary arterial pressure is 32.8 mmHg. PULMONARY VALVE No pulmonary valve regurgitation or stenosis. VESSELS The inferior vena cava is normal in size. PERICARDIUM No pericardial effusion. Rex Bowers MD, FACC, [facility] [place] (Electronically Signed) Final Date:09 August 2017 18:42
[2017-08-09 19:14] LABS: BICARBONATE 26.9 MEQ/L (21.0-32.0); CALCIUM 8.5 MG/DL (8.5-10.1); CREATININE 2.22 MG/DL (0.60-1.30)
[2017-08-09] MEDS: DOXAZOSIN MESYLATE 4 MG TAB PO SCH (20:10)
[2017-08-09] MEDS: ATORVASTATIN 40 MG TAB PO SCH (20:10)
[2017-08-09] MEDS: PRAMIPEXOLE DIHYDROCHLORIDE 0.25 MG TAB PO SCH (20:10)
[2017-08-10] VITALS (23 sets, daily range): BP systolic 105–148; BP diastolic 59–92; PULSE 66–100; RESP 18–20; TEMP 97.5–98.2; O2SAT 94–98
[2017-08-10] MEDS: LEVOTHYROXINE SODIUM 125 MCG TAB PO SCH (05:20)
[2017-08-10] MEDS: DILTIAZEM HCL 60 MG TAB PO SCH ×4 (05:20→23:06)
[2017-08-10 07:06] LABS: HEMATOCRIT 38.5 % (39.0-51.0); HEMOGLOBIN 12.5 GM/DL (13.0-17.0); MEAN CELL VOLUME 87.3 FL (80.0-100.0); MEAN CORPUSCULAR HEMOGLOBIN 28.3 PG (27.0-34.0); MEAN CORPUSCULAR HGB CONC 32.4 % (32.0-36.0); MEAN PLATELET VOLUME 7.9 FL (7.0-11.0); PLATELET COUNT 203 TH/MM3 (150-450); RED BLOOD COUNT 4.41 MIL/MM3 (4.50-5.90); RED CELL DISTRIBUTION WIDTH 18.1 % (11.6-17.2)
[2017-08-10] MEDS: INSULIN ASPART SUPPLEMENTAL SCALE SQ SCH ×4 (08:00→19:59)
[2017-08-10] MEDS: INSULIN ASPART 1,000 UNITS/10 ML VIAL SQ SCH ×3 (08:00→17:11)
[2017-08-10] MEDS: RAMIPRIL 5 MG CAP PO SCH (08:59)
[2017-08-10] MEDS: ALLOPURINOL 100 MG TAB PO SCH (08:59)
[2017-08-10] MEDS: BETHANECHOL CHL 25 MG TAB PO SCH (08:59)
[2017-08-10] MEDS: ASPIRIN 81 MG CHEW TAB CHEW SCH (08:59)
[2017-08-10] MEDS: SERTRALINE HCL 50 MG TAB PO SCH (08:59)
[2017-08-10] MEDS: PANTOPRAZOLE SOD 20 MG DELAYED RELEASE TAB PO SCH (09:00)
[2017-08-10] MEDS: SODIUM CHLORIDE 0.9% FLUSH 10 ML FLUSH IV FLUSH SCH ×2 (09:00→19:55)
[2017-08-10] MEDS: INSULIN DETEMIR 100 UNITS/ML VIAL SQ SCH ×2 (09:00→19:59)
[2017-08-10] MEDS ORDERED: REGADENOSON INJ 0.4 MG/5 ML SYR ONE (09:56)
--- NOTE | 2017-08-10 11:10 | EKG ---
Date Performed: 08/08/2017 Time Performed: 02:35:08 PTAGE: 72 years EKG: Atrial fibrillation with rapid ventricular response Right axis deviation Right bundle branc h block Abnormal ECG PREVIOUS TRACING : 08/07/2017 18.51 DOCTOR: Rex Bowers Interpretating Date/Time 08/10/2017 11:10:24
--- NOTE | 2017-08-10 11:11 | RADRPT ---
EXAM DATE/TIME: 08/10/2017 09:42 [place] COMPARISON: No previous studies available for comparison. INDICATIONS : Substernal chest pain with dyspnea. Angina. Atrial fibrillation. DOSE: 30 mCi Tc99m Myoview at stress. 10 mCi Tc99m Myoview at rest. 0.4 mg Lexiscan STRESS SYMPTOMS: Dyspnea and nausea. EJECTION FRACTION: 43% MEDICAL HISTORY : Hypertension. Diabetes mellitus type 2. Hypothyroidism. SURGICAL HISTORY : Cholecystectomy. Cardiac ablation. ENCOUNTER: Initial ACUITY: 2 days PAIN SCALE: 5/10 LOCATION: Substernal chest TECHNIQUE: The patient underwent pharmacologic stress with infusion of prescribed dose. Continuous ECG tracing was monitored during stress. Gated SPECT imaging was performed after stress and conventional SPECT i maging was performed at rest. The examination was performed on a SPECT/CT scanner, both attenuation and non-corrected datasets were reviewed. FINDINGS: DISTRIBUTION: The maximum perfused segment at stress is in the <mid posterior wall. PERFUSION STUDY: The pattern of perfusion at stress is within normal limits. The chamber does appear to be dilated. GATED STUDY: There is intact wall motion and thickening with global hypokinesia. CONCLUSION: The left ventricular chamber is dilated with global hypokinesis. Ejection fraction 43%. No large infa rcts are noted.. RISK CATEGORY: Intermediate (1-3% Annual Mortality Rate) Kenan Arita MD on August 10, 2017 at 11:05 Board Certified Radiologist. This report was verified electronically.
--- NOTE | 2017-08-10 12:46 | HHI.PR ---
Subjective Remarks This is a pleasant 72 y/o Male who came to ER with Chest pain, he has chronic neck pain from OA on Pain management with injections, started on Heparin drip in ER, he follows with Doctor Jose for Atrial Fibrillation Ablation, has Hypertension, DM II, Atrial Fibrillation, MUNA on CPAP at night, CKD TIA, Hypothyroidism, status post Cardiac Ablation, Admitted with diagnosis of NSTEMI and Cardiology consult in place. Patient seen by Doctor Terry Adler with diagnosis of Elevated troponin and atypical chest pain recommended for V/Q scan to rule out PE was performed and low probability for PE , he will have further ischemic workup by Cardiology stress test vs cardiac cath, seen in his bedroom in the presence of nurse Miss Aviles. 08/09: Seen in his bedroom in the presence of nurse Miss Quiñones, media reconciliation specialist doctor Terry Adler In to see the patient recommended for Cardiac Stress test for tomorrow morning. Atrial Fibrillation now in sinus rhythm resolved hematuria for outpatient Urology workup to rule out malignancy. 08/10: Stable in his bedroom awaiting for Stress test later today, discussed with nurse Miss Quiñones, no nausea, vomit or diarrhea. Objective Vital Signs Date Time Temp Pulse Resp B/P (MAP) Pulse Ox O2 Delivery O2 Flow Rate FiO2 08/10/17 12:15 73 08/10/17 11:15 96 Room Air 08/10/17 11:15 70 08/10/17 11:15 97.6 72 18 116/66 (83) 96 08/10/17 08:00 97.5 70 20 130/85 (100) 98 08/10/17 08:00 98 Nasal Cannula 2.00 08/10/17 08:00 75 08/10/17 06:00 66 08/10/17 05:00 69 08/10/17 04:00 98.2 72 18 105/63 (77) 95 08/10/17 04:00 72 08/10/17 04:00 Room Air 08/10/17 03:00 71 08/10/17 02:00 72 08/10/17 01:00 73 08/10/17 00:45 94 21 08/10/17 00:00 Room Air 08/10/17 00:00 98.1 73 20 148/92 (110) 95 08/10/17 00:00 73 08/09/17 23:00 75 08/09/17 22:00 72 08/09/17 21:00 73 08/09/17 20:00 72 08/09/17 20:00 Room Air 08/09/17 20:00 97.9 72 20 132/62 (85) 94 08/09/17 18:13 73 08/09/17 17:04 74 08/09/17 16:18 71 08/09/17 15:15 97.8 75 20 115/62 (79) 92 08/09/17 15:15 76 08/09/17 14:00 79 08/09/17 13:04 81 08/09/17 12:47 79 I/O 08/09/17 08/09/17 08/09/17 08/10/17 08/10/17 08/10/17 07:00 15:00 23:00 07:00 15:00 23:00 Intake Total 600 ml 480 ml Output Total 450 ml 500 ml 650 ml Balance -450 ml 100 ml -170 ml Intake Oral 600 ml 480 ml Output Urine Total 450 ml 500 ml 650 ml # Bowel Movements 1 0 Result Diagram: 08/10/17 0646 08/09/17 1754 Imaging Last Impressions Myocardial Perfusion Scan Nuc Med 08/10/17 0000 Signed Impressions: Service Date/Time: Thursday, August 10, 2017 09:42 - CONCLUSION: The left ventricular chamber is dilated with global hypokinesis. Ejection fraction 43%% . No large infarcts are noted.. RISK CATEGORY: Intermediate (1-3%% Annual Mortality Rate) Kenan Arita MD Lung Scan-V Nuclear Medicine 08/08/17 0000 Signed Impressions: Service Date/Time: Tuesday, August 08, 2017 11:19 - CONCLUSION: Low probability for pulmonary embolism. John Neville MD Chest X-Ray 08/07/17 1422 Signed Impressions: Service Date/Time: August 14:39 - CONCLUSION: Pulmonary venous congestion versus early edema. Moderate cardiomegaly.. Luiz Frey MD Procedures None Other Results Laboratory Tests Test 08/07/17 14:40 08/07/17 20:20 08/08/17 03:01 08/09/17 04:12 Prothrombin Time 11.0 SEC Prothromb Time International Ratio 1.0 RATIO Blood Urea Nitrogen 25 MG/DL Creatinine 1.70 MG/DL Random Glucose 200 MG/DL Total Protein 6.4 GM/DL Albumin 2.8 GM/DL Calcium Level 8.1 MG/DL Magnesium Level 2.0 MG/DL Alkaline Phosphatase 54 U/L Aspartate Amino Transf (AST/SGOT) 17 U/L Alanine Aminotransferase (ALT/SGPT) 25 U/L Total Bilirubin 0.7 MG/DL Sodium Level 139 MEQ/L Potassium Level 4.5 MEQ/L Chloride Level 108 MEQ/L Carbon Dioxide Level 23.3 MEQ/L B-Type Natriuretic Peptide 245 PG/ML Activated Partial Thromboplast Time 62.3 SEC Total Creatine Kinase 70 U/L Troponin I 0.17 NG/ML Hemoglobin A1c 10.4 % Test 08/09/17 17:54 08/10/17 06:46 Neutrophils (%) (Auto) 70.1 % Lymphocytes (%) (Auto) 18.8 % Monocytes (%) (Auto) 9.1 % Eosinophils (%) (Auto) 1.7 % Basophils (%) (Auto) 0.3 % Neutrophils # (Auto) 4.6 TH/MM3 Lymphocytes # (Auto) 1.2 TH/MM3 Monocytes # (Auto) 0.6 TH/MM3 Eosinophils # (Auto) 0.1 TH/MM3 Basophils # (Auto) 0.0 TH/MM3 CBC Comment DIFF FINAL Differential Comment Blood Urea Nitrogen 50 MG/DL Creatinine 2.22 MG/DL Random Glucose 262 MG/DL Calcium Level 8.5 MG/DL Sodium Level 139 MEQ/L Potassium Level 4.2 MEQ/L Chloride Level 103 MEQ/L Carbon Dioxide Level 26.9 MEQ/L Anion Gap 9 MEQ/L Estimat Glomerular Filtration Rate 29 ML/MIN White Blood Count 7.0 TH/MM3 Red Blood Count 4.41 MIL/MM3 Hemoglobin 12.5 GM/DL Hematocrit 38.5 % Mean Corpuscular Volume 87.3 FL Mean Corpuscular Hemoglobin 28.3 PG Mean Corpuscular Hemoglobin Concent 32.4 % Red Cell Distribution Width 18.1 % Platelet Count 203 TH/MM3 Mean Platelet Volume 7.9 FL Objective Remarks GENERAL: Obese patient in no acute distress. SKIN: No rashes, ecchymoses or lesions. Cool and dry. HEAD: Atraumatic. Normocephalic. No temporal or scalp tenderness. EYES: No scleral icterus. No injection or drainage. ENT: Nose without bleeding, purulent drainage or septal hematoma. Airway patent. NECK: Trachea midline. No JVD CARDIOVASCULAR: Regular rate and rhythm without murmurs, gallops, or rubs. RESPIRATORY: bilaterally decreased air entry GASTROINTESTINAL: Abdomen soft, non-tender, nondistended.truncal obesity. No guarding. MUSCULOSKELETAL: Extremities without clubbing, cyanosis, or edema. No calf tenderness. NEUROLOGICAL: Awake and alert. Motor and sensory grossly within normal limits. Normal speech. Medications and IVs Current Medications Medications (Trade) Dose Ordered Sig/Az Route Start Time Stop Time Status Last Admin (NS Flush) 2 ml UNSCH PRN IV FLUSH 08/07/17 17:00 (NS Flush) 2 ml BID IV FLUSH 08/07/17 21:00 08/10/17 09:00 (Narcan Inj) 0.4 mg UNSCH PRN IV PUSH 08/07/17 17:00 Diltiazem HCl 125 mg/Sodium Chloride 125 ml @ 5 mls/hr TITRATE PRN IV 08/07/17 19:30 08/08/17 04:48 (Zyloprim) 100 mg DAILY PO 08/08/17 09:00 08/10/17 08:59 (Lipitor) 40 mg HS PO 08/07/17 21:00 08/09/17 20:10 (Urecholine) 25 mg DAILY PO 08/08/17 09:00 08/10/17 08:59 (Cardura) 4 mg HS PO 08/07/17 21:00 08/09/17 20:10 (Synthroid) 125 mcg DAILY@0600 PO 08/08/17 06:00 08/10/17 05:20 (Altace) 5 mg DAILY PO 08/08/17 09:00 08/10/17 08:59 (Zoloft) 50 mg DAILY PO 08/08/17 09:00 08/10/17 08:59 (Ultracet 37.5-325 Mg) 1 tab Q6H PRN PO 08/07/17 19:45 08/09/17 23:32 (Protonix) 20 mg DAILY PO 08/08/17 09:00 08/10/17 09:00 (Mirapex) 0.5 mg HS PO 08/07/17 21:00 08/09/17 20:10 (D50w (Vial) Inj) 50 ml UNSCH PRN IV PUSH 08/07/17 23:30 (Glucagon Inj) 1 mg UNSCH PRN OTHER 08/07/17 23:30 (Aspirin Chew) 81 mg DAILY CHEW 08/09/17 09:00 08/10/17 08:59 (Cardizem) 60 mg Q6HR PO 08/08/17 12:00 08/10/17 05:20 (NovoLOG SUPPLEMENTAL SCALE) 1 ACHS SLIDING SCALE SQ 08/09/17 12:00 08/09/17 20:20 (NovoLOG INJ) 5 units TIDAC SQ 08/09/17 12:00 08/09/17 16:59 (Levemir Inj) 10 units BID SQ 08/09/17 12:00 08/09/17 20:14 A/P Assessment and Plan 1. NSTEMI Hospitalized, on Cardiac Enzymes, Cardiac monitoring, Heparin drip, Cardizem drip, V/Q scan, Echocardiogram, Patient seen by Doctor Terry Adler with diagnosis of Elevated troponin and atypical chest pain recommended for V/Q scan to rule out PE was performed and low probability for PE, he will have further ischemic workup recommended for Stress test later today. 2. Hematuria while on Heparin, will need further Urologic workup as outpatient. 3. Atrial Fibrillation with RVR on Cardizem by mouth, History of Cardiac ablation. 4. Hypertension controlled. 5. DM II Uncontrolled Sliding scale to Medium dose, Levemir 10 units every 12 hours and scheduled 5 units with every meal and follow closely try to keep blood sugar between 140 to 180 gr/dl, waiting for procedure. 6. MUNA on CPAP at night 7. CKD III stable. 8. Hypothyroidism continue Hormonal replacement. 9. Chronic Heart Failure with reduced Ejection Fraction EF 43% on actual Stress test following Cardiology recommendations. DVT prophylaxis with SCDs due to Hematuria. AAwaiting fianl recommendations by Cardiology for discharge Home. Discharge Planning Once cleared by media reconciliation specialist. Martin Hays MD Aug 10, 2017 12:46
--- NOTE | 2017-08-10 13:10 | PD.CARD.PN ---
Subjective Subjective Remarks No events overnight Continues in sinus rhythm Objective Medications Current Medications Medications (Trade) Dose Ordered Sig/Az Route Start Time Stop Time Status Last Admin (NS Flush) 2 ml UNSCH PRN IV FLUSH 08/07/17 17:00 (NS Flush) 2 ml BID IV FLUSH 08/07/17 21:00 08/10/17 09:00 (Narcan Inj) 0.4 mg UNSCH PRN IV PUSH 08/07/17 17:00 Diltiazem HCl 125 mg/Sodium Chloride 125 ml @ 5 mls/hr TITRATE PRN IV 08/07/17 19:30 08/08/17 04:48 (Zyloprim) 100 mg DAILY PO 08/08/17 09:00 08/10/17 08:59 (Lipitor) 40 mg HS PO 08/07/17 21:00 08/09/17 20:10 (Urecholine) 25 mg DAILY PO 08/08/17 09:00 08/10/17 08:59 (Cardura) 4 mg HS PO 08/07/17 21:00 08/09/17 20:10 (Synthroid) 125 mcg DAILY@0600 PO 08/08/17 06:00 08/10/17 05:20 (Altace) 5 mg DAILY PO 08/08/17 09:00 08/10/17 08:59 (Zoloft) 50 mg DAILY PO 08/08/17 09:00 08/10/17 08:59 (Ultracet 37.5-325 Mg) 1 tab Q6H PRN PO 08/07/17 19:45 08/09/17 23:32 (Protonix) 20 mg DAILY PO 08/08/17 09:00 08/10/17 09:00 (Mirapex) 0.5 mg HS PO 08/07/17 21:00 08/09/17 20:10 (D50w (Vial) Inj) 50 ml UNSCH PRN IV PUSH 08/07/17 23:30 (Glucagon Inj) 1 mg UNSCH PRN OTHER 08/07/17 23:30 (Aspirin Chew) 81 mg DAILY CHEW 08/09/17 09:00 08/10/17 08:59 (Cardizem) 60 mg Q6HR PO 08/08/17 12:00 08/10/17 12:46 (NovoLOG SUPPLEMENTAL SCALE) 1 ACHS SLIDING SCALE SQ 08/09/17 12:00 08/10/17 12:46 (NovoLOG INJ) 5 units TIDAC SQ 08/09/17 12:00 08/10/17 12:46 (Levemir Inj) 10 units BID SQ 08/09/17 12:00 08/09/17 20:14 Vital Signs / I&O Vital Signs Date Time Temp Pulse Resp B/P (MAP) Pulse Ox O2 Delivery O2 Flow Rate FiO2 08/10/17 13:05 79 08/10/17 12:15 73 08/10/17 11:15 96 Room Air 08/10/17 11:15 70 08/10/17 11:15 97.6 72 18 116/66 (83) 96 08/10/17 08:00 97.5 70 20 130/85 (100) 98 08/10/17 08:00 98 Nasal Cannula 2.00 08/10/17 08:00 75 08/10/17 06:00 66 08/10/17 05:00 69 08/10/17 04:00 98.2 72 18 105/63 (77) 95 08/10/17 04:00 72 08/10/17 04:00 Room Air 08/10/17 03:00 71 08/10/17 02:00 72 08/10/17 01:00 73 08/10/17 00:45 94 21 08/10/17 00:00 Room Air 08/10/17 00:00 98.1 73 20 148/92 (110) 95 08/10/17 00:00 73 08/09/17 23:00 75 08/09/17 22:00 72 08/09/17 21:00 73 08/09/17 20:00 72 08/09/17 20:00 Room Air 08/09/17 20:00 97.9 72 20 132/62 (85) 94 08/09/17 18:13 73 08/09/17 17:04 74 08/09/17 16:18 71 08/09/17 15:15 97.8 75 20 115/62 (79) 92 08/09/17 15:15 76 08/09/17 14:00 79 I/O 08/09/17 08/09/17 08/09/17 08/10/17 08/10/17 08/10/17 07:00 15:00 23:00 07:00 15:00 23:00 Intake Total 600 ml 480 ml Output Total 450 ml 500 ml 650 ml Balance -450 ml 100 ml -170 ml Intake Oral 600 ml 480 ml Output Urine Total 450 ml 500 ml 650 ml # Bowel Movements 1 0 Physical Exam GENERAL: NAD, AAOx3 SKIN: Warm and dry. HEAD: Atraumatic. Normocephalic. EYES: Pupils equal and round. No scleral icterus. No injection or drainage. ENT: No nasal bleeding or discharge. Mucous membranes pink and moist. NECK: Trachea midline. No JVD. CARDIOVASCULAR: Regular rate and rhythm. RESPIRATORY: No accessory muscle use. Clear to auscultation. Breath sounds equal bilaterally. GASTROINTESTINAL: Abdomen soft, non-tender, nondistended. Hepatic and splenic margins not palpable. MUSCULOSKELETAL: Extremities without clubbing, cyanosis, or edema. No obvious deformities. NEUROLOGICAL: Awake and alert. No obvious cranial nerve deficits. Motor grossly within normal limits. Five out of 5 muscle strength in the arms and legs. Normal speech. PSYCHIATRIC: Appropriate mood and affect; insight and judgment normal. Laboratory Laboratory Tests Test 08/09/17 17:54 08/10/17 06:46 White Blood Count 6.6 TH/MM3 7.0 TH/MM3 Red Blood Count 4.17 MIL/MM3 4.41 MIL/MM3 Hemoglobin 11.9 GM/DL 12.5 GM/DL Hematocrit 36.4 % 38.5 % Mean Corpuscular Volume 87.3 FL 87.3 FL Mean Corpuscular Hemoglobin 28.5 PG 28.3 PG Mean Corpuscular Hemoglobin Concent 32.6 % 32.4 % Red Cell Distribution Width 18.4 % 18.1 % Platelet Count 211 TH/MM3 203 TH/MM3 Mean Platelet Volume 8.0 FL 7.9 FL Neutrophils (%) (Auto) 70.1 % Lymphocytes (%) (Auto) 18.8 % Monocytes (%) (Auto) 9.1 % Eosinophils (%) (Auto) 1.7 % Basophils (%) (Auto) 0.3 % Neutrophils # (Auto) 4.6 TH/MM3 Lymphocytes # (Auto) 1.2 TH/MM3 Monocytes # (Auto) 0.6 TH/MM3 Eosinophils # (Auto) 0.1 TH/MM3 Basophils # (Auto) 0.0 TH/MM3 CBC Comment DIFF FINAL Differential Comment Blood Urea Nitrogen 50 MG/DL Creatinine 2.22 MG/DL Random Glucose 262 MG/DL Calcium Level 8.5 MG/DL Sodium Level 139 MEQ/L Potassium Level 4.2 MEQ/L Chloride Level 103 MEQ/L Carbon Dioxide Level 26.9 MEQ/L Anion Gap 9 MEQ/L Estimat Glomerular Filtration Rate 29 ML/MIN Imaging Last 24 hours Impressions Myocardial Perfusion Scan Nuc Med 08/10/17 0000 Signed Impressions: Service Date/Time: Thursday, August 10, 2017 09:42 - CONCLUSION: The left ventricular chamber is dilated with global hypokinesis. Ejection fraction 43%% . No large infarcts are noted.. RISK CATEGORY: Intermediate (1-3%% Annual Mortality Rate) Kenan Arita MD Assessment and Plan Problem List: (1) PAF (paroxysmal atrial fibrillation) ICD Codes: I48.0 - Paroxysmal atrial fibrillation (2) Elevated troponin ICD Codes: R74.8 - Abnormal levels of other serum enzymes (3) History of TIA (transient ischemic attack) ICD Codes: Z86.73 - History of TIA (transient ischemic attack) Status: Acute (4) Chronic kidney disease, stage III (moderate) ICD Codes: N18.3 - Chronic kidney disease, stage III (moderate) Status: Acute (5) Hypertension ICD Codes: I10 - Hypertension Status: Acute Assessment and Plan 1) Atypical chest pain with mild elevation of troponin May be due to going back into atrial fibrillation Stress test negative for ischemia 2) Afib Converted to normal sinus rhythm CHADVASc = 5 Will plan on Eliquis 5mg BID, will have to watch for hematuria Con't Cardizem PO 3) Hematuria Resolved Should have eventual Urology workup to rule out malignancy 4) Creatinine increasing Will hold MANJIT-I Terry Adler DO Aug 10, 2017 13:10
[2017-08-10] MEDS: traMADol/ACETAMINOPHEN 37.5/325 1 TAB PO PRN ×2 (17:14→23:06)
[2017-08-10] MEDS: DOXAZOSIN MESYLATE 4 MG TAB PO SCH (19:54)
[2017-08-10] MEDS: APIXABAN 5 MG TABLET PO SCH (19:54)
[2017-08-10] MEDS: PRAMIPEXOLE DIHYDROCHLORIDE 0.25 MG TAB PO SCH (19:55)
[2017-08-10] MEDS: ATORVASTATIN 40 MG TAB PO SCH (19:55)
[2017-08-11] VITALS (24 sets, daily range): BP systolic 121–143; BP diastolic 64–96; PULSE 15–114; RESP 18–20; TEMP 97.3–98.4; O2SAT 93–96
[2017-08-11] MEDS: DILTIAZEM HCL 60 MG TAB PO SCH ×3 (05:35→18:07)
[2017-08-11] MEDS: LEVOTHYROXINE SODIUM 125 MCG TAB PO SCH (05:35)
--- NOTE | 2017-08-11 08:48 | HHI.PR ---
Subjective Remarks This is a pleasant 72 y/o Male who came to ER with Chest pain, he has chronic neck pain from OA on Pain management with injections, started on Heparin drip in ER, he follows with Doctor Jose for Atrial Fibrillation Ablation, has Hypertension, DM II, Atrial Fibrillation, MUNA on CPAP at night, CKD TIA, Hypothyroidism, status post Cardiac Ablation, Admitted with diagnosis of NSTEMI and Cardiology consult in place. Patient seen by Doctor Terry Adler with diagnosis of Elevated troponin and atypical chest pain recommended for V/Q scan to rule out PE was performed and low probability for PE , he will have further ischemic workup by Cardiology stress test vs cardiac cath, seen in his bedroom in the presence of nurse Miss Aviles. 08/09: Seen in his bedroom in the presence of nurse Miss Quiñones, application integration specialist doctor Terry Adler In to see the patient recommended for Cardiac Stress test for tomorrow morning. Atrial Fibrillation now in sinus rhythm resolved hematuria for outpatient Urology workup to rule out malignancy. 08/10: Stable in his bedroom awaiting for Stress test later today, discussed with nurse Miss Quiñones, 08/11: Seen in his bedroom, at this time no pain, increased his Levemir to 15 units BID to try to control his blood sugar, no nausea, vomit or diarrhea, no ischemia on Stress test will get clearance by Cardiology for discharge home. Objective Vital Signs Date Time Temp Pulse Resp B/P (MAP) Pulse Ox O2 Delivery O2 Flow Rate FiO2 08/11/17 08:00 74 08/11/17 07:00 97.9 91 18 130/90 (103) 94 08/11/17 07:00 90 08/11/17 05:59 91 08/11/17 05:00 96 08/11/17 04:00 113 08/11/17 04:00 Room Air 08/11/17 04:00 98.4 113 20 121/64 (83) 95 08/11/17 03:00 97 08/11/17 02:00 89 08/11/17 01:00 95 08/11/17 00:00 101 08/11/17 00:00 Room Air 08/11/17 00:00 98.1 101 20 129/85 (100) 96 08/10/17 23:00 95 08/10/17 22:00 96 08/10/17 21:00 74 08/10/17 20:00 98.2 100 20 135/79 (97) 95 08/10/17 20:00 100 08/10/17 20:00 Room Air 08/10/17 18:27 88 08/10/17 17:52 18 08/10/17 17:44 83 08/10/17 17:08 97 08/10/17 16:41 71 08/10/17 15:15 80 08/10/17 15:15 98.0 76 18 109/59 (76) 97 08/10/17 14:16 75 08/10/17 14:05 94 08/10/17 13:05 79 08/10/17 12:15 73 08/10/17 11:15 96 Room Air 08/10/17 11:15 70 08/10/17 11:15 97.6 72 18 116/66 (83) 96 I/O 08/10/17 08/10/17 08/10/17 08/11/17 08/11/17 08/11/17 07:00 15:00 23:00 07:00 15:00 23:00 Intake Total 480 ml 600 ml 480 ml Output Total 650 ml 800 ml Balance -170 ml 600 ml -320 ml Intake Oral 480 ml 600 ml 480 ml Output Urine Total 650 ml 800 ml # Voids 4 # Bowel Movements 0 1 0 Result Diagram: 08/10/17 0646 08/09/17 1754 Imaging Last Impressions Myocardial Perfusion Scan Nuc Med 08/10/17 0000 Signed Impressions: Service Date/Time: Thursday, August 10, 2017 09:42 - CONCLUSION: The left ventricular chamber is dilated with global hypokinesis. Ejection fraction 43%% . No large infarcts are noted.. RISK CATEGORY: Intermediate (1-3%% Annual Mortality Rate) Kenan Arita MD Lung Scan-V Nuclear Medicine 08/08/17 0000 Signed Impressions: Service Date/Time: Tuesday, August 08, 2017 11:19 - CONCLUSION: Low probability for pulmonary embolism. John Neville MD Chest X-Ray 08/07/17 1422 Signed Impressions: Service Date/Time: August 14:39 - CONCLUSION: Pulmonary venous congestion versus early edema. Moderate cardiomegaly.. Luiz Frey MD Procedures Stress test Other Results Laboratory Tests Test 08/07/17 14:40 08/07/17 20:20 08/08/17 03:01 08/09/17 04:12 Prothrombin Time 11.0 SEC Prothromb Time International Ratio 1.0 RATIO Blood Urea Nitrogen 25 MG/DL Creatinine 1.70 MG/DL Random Glucose 200 MG/DL Total Protein 6.4 GM/DL Albumin 2.8 GM/DL Calcium Level 8.1 MG/DL Magnesium Level 2.0 MG/DL Alkaline Phosphatase 54 U/L Aspartate Amino Transf (AST/SGOT) 17 U/L Alanine Aminotransferase (ALT/SGPT) 25 U/L Total Bilirubin 0.7 MG/DL Sodium Level 139 MEQ/L Potassium Level 4.5 MEQ/L Chloride Level 108 MEQ/L Carbon Dioxide Level 23.3 MEQ/L B-Type Natriuretic Peptide 245 PG/ML Activated Partial Thromboplast Time 62.3 SEC Total Creatine Kinase 70 U/L Troponin I 0.17 NG/ML Hemoglobin A1c 10.4 % Test 08/09/17 17:54 08/10/17 06:46 Neutrophils (%) (Auto) 70.1 % Lymphocytes (%) (Auto) 18.8 % Monocytes (%) (Auto) 9.1 % Eosinophils (%) (Auto) 1.7 % Basophils (%) (Auto) 0.3 % Neutrophils # (Auto) 4.6 TH/MM3 Lymphocytes # (Auto) 1.2 TH/MM3 Monocytes # (Auto) 0.6 TH/MM3 Eosinophils # (Auto) 0.1 TH/MM3 Basophils # (Auto) 0.0 TH/MM3 CBC Comment DIFF FINAL Differential Comment Blood Urea Nitrogen 50 MG/DL Creatinine 2.22 MG/DL Random Glucose 262 MG/DL Calcium Level 8.5 MG/DL Sodium Level 139 MEQ/L Potassium Level 4.2 MEQ/L Chloride Level 103 MEQ/L Carbon Dioxide Level 26.9 MEQ/L Anion Gap 9 MEQ/L Estimat Glomerular Filtration Rate 29 ML/MIN White Blood Count 7.0 TH/MM3 Red Blood Count 4.41 MIL/MM3 Hemoglobin 12.5 GM/DL Hematocrit 38.5 % Mean Corpuscular Volume 87.3 FL Mean Corpuscular Hemoglobin 28.3 PG Mean Corpuscular Hemoglobin Concent 32.4 % Red Cell Distribution Width 18.1 % Platelet Count 203 TH/MM3 Mean Platelet Volume 7.9 FL Objective Remarks GENERAL: Obese patient in no acute distress. SKIN: No rashes, ecchymoses or lesions. Cool and dry. HEAD: Atraumatic. Normocephalic. No temporal or scalp tenderness. EYES: No scleral icterus. No injection or drainage. ENT: Nose without bleeding, purulent drainage or septal hematoma. Airway patent. NECK: Trachea midline. No JVD CARDIOVASCULAR: Regular rate and rhythm without murmurs, gallops, or rubs. RESPIRATORY: bilaterally decreased air entry GASTROINTESTINAL: Abdomen soft, non-tender, nondistended.truncal obesity. No guarding. MUSCULOSKELETAL: Extremities without clubbing, cyanosis, or edema. No calf tenderness. NEUROLOGICAL: Awake and alert. Motor and sensory grossly within normal limits. Normal speech. Medications and IVs Current Medications Medications (Trade) Dose Ordered Sig/Az Route Start Time Stop Time Status Last Admin (NS Flush) 2 ml UNSCH PRN IV FLUSH 08/07/17 17:00 (NS Flush) 2 ml BID IV FLUSH 08/07/17 21:00 08/10/17 19:55 (Narcan Inj) 0.4 mg UNSCH PRN IV PUSH 08/07/17 17:00 Diltiazem HCl 125 mg/Sodium Chloride 125 ml @ 5 mls/hr TITRATE PRN IV 08/07/17 19:30 08/08/17 04:48 (Zyloprim) 100 mg DAILY PO 08/08/17 09:00 08/10/17 08:59 (Lipitor) 40 mg HS PO 08/07/17 21:00 08/10/17 19:55 (Urecholine) 25 mg DAILY PO 08/08/17 09:00 08/10/17 08:59 (Cardura) 4 mg HS PO 08/07/17 21:00 08/10/17 19:54 (Synthroid) 125 mcg DAILY@0600 PO 08/08/17 06:00 08/11/17 05:35 (Altace) 5 mg DAILY PO 08/08/17 09:00 Future Hold 08/10/17 08:59 (Zoloft) 50 mg DAILY PO 08/08/17 09:00 08/10/17 08:59 (Ultracet 37.5-325 Mg) 1 tab Q6H PRN PO 08/07/17 19:45 08/10/17 23:06 (Protonix) 20 mg DAILY PO 08/08/17 09:00 08/10/17 09:00 (Mirapex) 0.5 mg HS PO 08/07/17 21:00 08/10/17 19:55 (D50w (Vial) Inj) 50 ml UNSCH PRN IV PUSH 08/07/17 23:30 (Glucagon Inj) 1 mg UNSCH PRN OTHER 08/07/17 23:30 (Aspirin Chew) 81 mg DAILY CHEW 08/09/17 09:00 08/10/17 08:59 (Cardizem) 60 mg Q6HR PO 08/08/17 12:00 08/11/17 05:35 (NovoLOG SUPPLEMENTAL SCALE) 1 ACHS SLIDING SCALE SQ 08/09/17 12:00 08/10/17 19:59 (NovoLOG INJ) 5 units TIDAC SQ 08/09/17 12:00 08/10/17 17:11 (Levemir Inj) 10 units BID SQ 08/09/17 12:00 08/10/17 19:59 (Eliquis) 5 mg BID PO 08/10/17 21:00 08/10/17 19:54 A/P Assessment and Plan 1. NSTEMI Hospitalized, on Cardiac Enzymes, Cardiac monitoring, Heparin drip, Cardizem drip, V/Q scan, Echocardiogram, Patient seen by Doctor Terry Adler with diagnosis of Elevated troponin and atypical chest pain recommended for V/Q scan to rule out PE was performed and low probability for PE, status post Stress test negative for Ischemia, not yet clear for discharge by application integration specialist. 2. Hematuria while on Heparin, will need further Urologic workup as outpatient. no further hematuria. 3. Atrial Fibrillation with RVR on Cardizem by mouth, History of Cardiac ablation. 4. Hypertension controlled. 5. DM II Uncontrolled Sliding scale to Medium dose, Levemir 15 units every 12 hours and scheduled 5 units with every meal and follow closely try to keep blood sugar between 140 to 180 gr/dl. 6. MUNA on CPAP at night 7. CKD III stable. 8. Hypothyroidism continue Hormonal replacement. 9. Chronic Heart Failure with reduced Ejection Fraction EF 43% on actual Stress test following Cardiology recommendations. DVT prophylaxis with SCDs due to Hematuria. AAwaiting fianl recommendations by Cardiology for discharge Home. Discharge Planning Once cleared by application integration specialist. Martin Hays MD Aug 11, 2017 08:48
[2017-08-11] MEDS: SERTRALINE HCL 50 MG TAB PO SCH (09:07)
[2017-08-11] MEDS: BETHANECHOL CHL 25 MG TAB PO SCH (09:07)
[2017-08-11] MEDS: PANTOPRAZOLE SOD 20 MG DELAYED RELEASE TAB PO SCH (09:07)
[2017-08-11] MEDS: ALLOPURINOL 100 MG TAB PO SCH (09:07)
[2017-08-11] MEDS: INSULIN ASPART 1,000 UNITS/10 ML VIAL SQ SCH ×3 (09:08→18:19)
[2017-08-11] MEDS: ASPIRIN 81 MG CHEW TAB CHEW SCH (09:08)
[2017-08-11] MEDS: INSULIN ASPART SUPPLEMENTAL SCALE SQ SCH ×4 (09:08→21:21)
[2017-08-11] MEDS: APIXABAN 5 MG TABLET PO SCH ×2 (09:08→21:20)
[2017-08-11] MEDS: INSULIN DETEMIR 100 UNITS/ML VIAL SQ SCH ×2 (09:12→21:21)
[2017-08-11] MEDS: SODIUM CHLORIDE 0.9% FLUSH 10 ML FLUSH IV FLUSH SCH ×2 (09:12→21:00)
[2017-08-11] MEDS: traMADol/ACETAMINOPHEN 37.5/325 1 TAB PO PRN (18:19)
[2017-08-11] MEDS: DOXAZOSIN MESYLATE 4 MG TAB PO SCH (21:20)
[2017-08-11] MEDS: ATORVASTATIN 40 MG TAB PO SCH (21:20)
[2017-08-11] MEDS: PRAMIPEXOLE DIHYDROCHLORIDE 0.25 MG TAB PO SCH (21:20)
--- NOTE | 2017-08-11 21:52 | PD.CARD.PN ---
Subjective Subjective Remarks No events overnight Continues in sinus rhythm with episodes of controlled afib Minimal hematuria which was since stopped Objective Medications Current Medications Medications (Trade) Dose Ordered Sig/Az Route Start Time Stop Time Status Last Admin (NS Flush) 2 ml UNSCH PRN IV FLUSH 08/07/17 17:00 (NS Flush) 2 ml BID IV FLUSH 08/07/17 21:00 08/11/17 21:00 (Narcan Inj) 0.4 mg UNSCH PRN IV PUSH 08/07/17 17:00 Diltiazem HCl 125 mg/Sodium Chloride 125 ml @ 5 mls/hr TITRATE PRN IV 08/07/17 19:30 08/08/17 04:48 (Zyloprim) 100 mg DAILY PO 08/08/17 09:00 08/11/17 09:07 (Lipitor) 40 mg HS PO 08/07/17 21:00 08/11/17 21:20 (Urecholine) 25 mg DAILY PO 08/08/17 09:00 08/11/17 09:07 (Cardura) 4 mg HS PO 08/07/17 21:00 08/11/17 21:20 (Synthroid) 125 mcg DAILY@0600 PO 08/08/17 06:00 08/11/17 05:35 (Altace) 5 mg DAILY PO 08/08/17 09:00 Future Hold 08/10/17 08:59 (Zoloft) 50 mg DAILY PO 08/08/17 09:00 08/11/17 09:07 (Ultracet 37.5-325 Mg) 1 tab Q6H PRN PO 08/07/17 19:45 08/11/17 18:19 (Protonix) 20 mg DAILY PO 08/08/17 09:00 08/11/17 09:07 (Mirapex) 0.5 mg HS PO 08/07/17 21:00 08/11/17 21:20 (D50w (Vial) Inj) 50 ml UNSCH PRN IV PUSH 08/07/17 23:30 (Glucagon Inj) 1 mg UNSCH PRN OTHER 08/07/17 23:30 (Aspirin Chew) 81 mg DAILY CHEW 08/09/17 09:00 08/11/17 09:08 (Cardizem) 60 mg Q6HR PO 08/08/17 12:00 08/11/17 18:07 (NovoLOG SUPPLEMENTAL SCALE) 1 ACHS SLIDING SCALE SQ 08/09/17 12:00 08/11/17 21:21 (NovoLOG INJ) 5 units TIDAC SQ 08/09/17 12:00 08/11/17 18:19 (Eliquis) 5 mg BID PO 08/10/17 21:00 08/11/17 21:20 (Levemir Inj) 15 units BID SQ 08/11/17 09:00 08/11/17 21:21 Vital Signs / I&O Vital Signs Date Time Temp Pulse Resp B/P (MAP) Pulse Ox O2 Delivery O2 Flow Rate FiO2 08/11/17 18:00 106 08/11/17 17:00 92 08/11/17 16:00 100 08/11/17 15:00 97.3 15 18 124/76 (92) 96 08/11/17 15:00 91 08/11/17 15:00 Room Air 2.00 21 08/11/17 14:01 92 08/11/17 13:56 78 08/11/17 12:00 91 08/11/17 11:00 92 08/11/17 11:00 Room Air 2.00 21 08/11/17 11:00 97.9 96 18 137/89 (105) 96 08/11/17 10:01 77 08/11/17 09:00 94 08/11/17 08:00 74 08/11/17 07:00 97.9 91 18 130/90 (103) 94 08/11/17 07:00 90 08/11/17 05:59 91 08/11/17 05:00 96 08/11/17 04:00 113 08/11/17 04:00 Room Air 08/11/17 04:00 98.4 113 20 121/64 (83) 95 08/11/17 03:00 97 08/11/17 02:00 89 08/11/17 01:00 95 08/11/17 00:00 101 08/11/17 00:00 Room Air 08/11/17 00:00 98.1 101 20 129/85 (100) 96 08/10/17 23:00 95 08/10/17 22:00 96 I/O 08/10/17 08/10/17 08/10/17 08/11/17 08/11/17/6/17 07:00 15:00 23:00 07:00 15:00 23:00 Intake Total 480 ml 600 ml 480 ml Output Total 650 ml 800 ml Balance -170 ml 600 ml -320 ml Intake Oral 480 ml 600 ml 480 ml Output Urine Total 650 ml 800 ml # Voids 4 5 # Bowel Movements 0 1 0 2 Physical Exam GENERAL: NAD, AAOx3 SKIN: Warm and dry. HEAD: Atraumatic. Normocephalic. EYES: Pupils equal and round. No scleral icterus. No injection or drainage. ENT: No nasal bleeding or discharge. Mucous membranes pink and moist. NECK: Trachea midline. No JVD. CARDIOVASCULAR: Regular rate and rhythm. RESPIRATORY: No accessory muscle use. Clear to auscultation. Breath sounds equal bilaterally. GASTROINTESTINAL: Abdomen soft, non-tender, nondistended. Hepatic and splenic margins not palpable. MUSCULOSKELETAL: Extremities without clubbing, cyanosis, or edema. No obvious deformities. NEUROLOGICAL: Awake and alert. No obvious cranial nerve deficits. Motor grossly within normal limits. Five out of 5 muscle strength in the arms and legs. Normal speech. PSYCHIATRIC: Appropriate mood and affect; insight and judgment normal. Assessment and Plan Problem List: (1) PAF (paroxysmal atrial fibrillation) ICD Codes: I48.0 - Paroxysmal atrial fibrillation (2) Elevated troponin ICD Codes: R74.8 - Abnormal levels of other serum enzymes (3) History of TIA (transient ischemic attack) ICD Codes: Z86.73 - History of TIA (transient ischemic attack) Status: Acute (4) Chronic kidney disease, stage III (moderate) ICD Codes: N18.3 - Chronic kidney disease, stage III (moderate) Status: Acute (5) Hypertension ICD Codes: I10 - Hypertension Status: Acute Assessment and Plan 1) Atypical chest pain with mild elevation of troponin May be due to going back into atrial fibrillation Stress test negative for ischemia 2) Afib Converted to normal sinus rhythm CHADVASc = 5 Eliquis 5mg BID, will have to watch for hematuria Con't Cardizem PO 3) Hematuria Resolved Should have eventual Urology workup to rule out malignancy 4) Creatinine increasing Will hold MANJIT-I BMP in the am 5) Plan discharge in the morning if stable Will follow up with Dr. Garcia upon discharge Terry Adlre DO Aug 11, 2017 21:52
[2017-08-12] VITALS (11 sets, daily range): BP systolic 132–142; BP diastolic 79–95; PULSE 82–106; RESP 18; TEMP 97.5–97.8; O2SAT 97
[2017-08-12] MEDS: DILTIAZEM HCL 60 MG TAB PO SCH ×3 (00:01→12:09)
[2017-08-12] MEDS: traMADol/ACETAMINOPHEN 37.5/325 1 TAB PO PRN (00:02)
[2017-08-12] MEDS: LEVOTHYROXINE SODIUM 125 MCG TAB PO SCH (06:05)
[2017-08-12 06:39] LABS: BICARBONATE 23.9 MEQ/L (21.0-32.0); CALCIUM 8.9 MG/DL (8.5-10.1); CREATININE 1.72 MG/DL (0.60-1.30)
[2017-08-12] MEDS: ASPIRIN 81 MG CHEW TAB CHEW SCH (08:42)
[2017-08-12] MEDS: SODIUM CHLORIDE 0.9% FLUSH 10 ML FLUSH IV FLUSH SCH (08:43)
[2017-08-12] MEDS: BETHANECHOL CHL 25 MG TAB PO SCH (08:43)
[2017-08-12] MEDS: INSULIN ASPART 1,000 UNITS/10 ML VIAL SQ SCH ×2 (08:43→12:09)
[2017-08-12] MEDS: SERTRALINE HCL 50 MG TAB PO SCH (08:43)
[2017-08-12] MEDS: PANTOPRAZOLE SOD 20 MG DELAYED RELEASE TAB PO SCH (08:43)
[2017-08-12] MEDS: APIXABAN 5 MG TABLET PO SCH (08:43)
[2017-08-12] MEDS: ALLOPURINOL 100 MG TAB PO SCH (08:43)
[2017-08-12] MEDS: INSULIN ASPART SUPPLEMENTAL SCALE SQ SCH ×2 (08:44→12:09)
[2017-08-12] MEDS: INSULIN DETEMIR 100 UNITS/ML VIAL SQ SCH (08:44)
[2017-08-12] MEDS ORDERED: INSULIN DETEMIR 100 UNITS/ML VIAL SQ ONE (09:00)
--- NOTE | 2017-08-12 10:11 | HHI.PR ---
Subjective Remarks This is a pleasant 72 y/o Male who came to ER with Chest pain, he has chronic neck pain from OA on Pain management with injections, started on Heparin drip in ER, he follows with Doctor Garcia for Atrial Fibrillation Ablation, has Hypertension, DM II, Atrial Fibrillation, MUNA on CPAP at night, CKD TIA, Hypothyroidism, status post Cardiac Ablation, Admitted with diagnosis of NSTEMI and Cardiology consult in place. Patient seen by Doctor Terry Adler with diagnosis of Elevated troponin and atypical chest pain recommended for V/Q scan to rule out PE was performed and low probability for PE , he will have further ischemic workup by Cardiology stress test vs cardiac cath, seen in his bedroom in the presence of nurse Miss Aviles. 08/09: Seen in his bedroom in the presence of nurse Miss Quiñones, business employment specialist doctor Terry Adler In to see the patient recommended for Cardiac Stress test for tomorrow morning. Atrial Fibrillation now in sinus rhythm resolved hematuria for outpatient Urology workup to rule out malignancy. 08/10: Stable in his bedroom awaiting for Stress test later today, discussed with nurse Miss Quiñones, 08/11: Seen in his bedroom, at this time no pain, increased his Levemir to 15 units BID to try to control his blood sugar, no nausea, vomit or diarrhea, no ischemia on Stress test will get clearance by Cardiology for discharge home. 08/12: Stable in his bedroom as recommended by business employment specialist patient stable and okay to go home he will follow with Doctor Garcia on discharge. no nausea, vomit or diarrhea, discussed with nurse Miss Ayala. recommended to continue Eliquis and Cardizem by mouth. Objective Vital Signs Date Time Temp Pulse Resp B/P (MAP) Pulse Ox O2 Delivery O2 Flow Rate FiO2 08/12/17 10:01 92 08/12/17 09:00 82 08/12/17 08:00 83 08/12/17 08:00 97 Room Air 08/12/17 08:00 97.5 83 18 132/79 (96) 97 08/12/17 07:13 102 08/12/17 06:00 95 08/12/17 05:00 84 08/12/17 04:00 97 08/12/17 03:00 105 08/12/17 03:00 97 Nasal Cannula 2.00 08/12/17 03:00 97.8 91 18 142/95 (111) 97 08/12/17 02:00 91 08/12/17 01:00 98 08/12/17 00:00 Nasal Cannula 2.00 08/12/17 00:00 106 08/11/17 23:00 114 08/11/17 23:00 94 Room Air 08/11/17 23:00 98.0 85 18 143/96 (112) 94 08/11/17 22:00 102 08/11/17 21:00 102 08/11/17 20:00 102 08/11/17 20:00 93 Room Air 08/11/17 20:00 97.9 92 18 141/92 (108) 93 08/11/17 19:00 110 08/11/17 18:00 106 08/11/17 17:00 92 08/11/17 16:00 100 08/11/17 15:00 97.3 15 18 124/76 (92) 96 08/11/17 15:00 91 08/11/17 15:00 Room Air 2.00 21 08/11/17 14:01 92 08/11/17 13:56 78 08/11/17 12:00 91 08/11/17 11:00 92 08/11/17 11:00 Room Air 2.00 21 08/11/17 11:00 97.9 96 18 137/89 (105) 96 I/O 08/11/17 08/11/17 08/11/17 08/12/17 08/12/17 08/12/17 07:00 15:00 23:00 07:00 15:00 23:00 Intake Total 480 ml 460 ml Output Total 800 ml 700 ml Balance -320 ml -240 ml Intake Oral 480 ml 460 ml Output Urine Total 800 ml 700 ml # Voids 5 # Bowel Movements 0 2 0 Result Diagram: 08/10/17 0646 08/12/17 0515 Imaging Last Impressions Myocardial Perfusion Scan Nuc Med 08/10/17 0000 Signed Impressions: Service Date/Time: Thursday, August 10, 2017 09:42 - CONCLUSION: The left ventricular chamber is dilated with global hypokinesis. Ejection fraction 43%% . No large infarcts are noted.. RISK CATEGORY: Intermediate (1-3%% Annual Mortality Rate) Kenan Arita MD Lung Scan-V Nuclear Medicine 08/08/17 0000 Signed Impressions: Service Date/Time: Tuesday, August 08, 2017 11:19 - CONCLUSION: Low probability for pulmonary embolism. John Neville MD Chest X-Ray 08/07/17 1422 Signed Impressions: Service Date/Time: August 14:39 - CONCLUSION: Pulmonary venous congestion versus early edema. Moderate cardiomegaly.. Luiz Frey MD Procedures Stress test Other Results Laboratory Tests Test 08/07/17 14:40 08/07/17 20:20 08/08/17 03:01 08/09/17 04:12 Prothrombin Time 11.0 SEC Prothromb Time International Ratio 1.0 RATIO Blood Urea Nitrogen 25 MG/DL Creatinine 1.70 MG/DL Random Glucose 200 MG/DL Total Protein 6.4 GM/DL Albumin 2.8 GM/DL Calcium Level 8.1 MG/DL Magnesium Level 2.0 MG/DL Alkaline Phosphatase 54 U/L Aspartate Amino Transf (AST/SGOT) 17 U/L Alanine Aminotransferase (ALT/SGPT) 25 U/L Total Bilirubin 0.7 MG/DL Sodium Level 139 MEQ/L Potassium Level 4.5 MEQ/L Chloride Level 108 MEQ/L Carbon Dioxide Level 23.3 MEQ/L B-Type Natriuretic Peptide 245 PG/ML Activated Partial Thromboplast Time 62.3 SEC Total Creatine Kinase 70 U/L Troponin I 0.17 NG/ML Hemoglobin A1c 10.4 % Test 08/09/17 17:54 08/10/17 06:46 08/12/17 05:15 Neutrophils (%) (Auto) 70.1 % Lymphocytes (%) (Auto) 18.8 % Monocytes (%) (Auto) 9.1 % Eosinophils (%) (Auto) 1.7 % Basophils (%) (Auto) 0.3 % Neutrophils # (Auto) 4.6 TH/MM3 Lymphocytes # (Auto) 1.2 TH/MM3 Monocytes # (Auto) 0.6 TH/MM3 Eosinophils # (Auto) 0.1 TH/MM3 Basophils # (Auto) 0.0 TH/MM3 CBC Comment DIFF FINAL Differential Comment White Blood Count 7.0 TH/MM3 Red Blood Count 4.41 MIL/MM3 Hemoglobin 12.5 GM/DL Hematocrit 38.5 % Mean Corpuscular Volume 87.3 FL Mean Corpuscular Hemoglobin 28.3 PG Mean Corpuscular Hemoglobin Concent 32.4 % Red Cell Distribution Width 18.1 % Platelet Count 203 TH/MM3 Mean Platelet Volume 7.9 FL Blood Urea Nitrogen 38 MG/DL Creatinine 1.72 MG/DL Random Glucose 184 MG/DL Calcium Level 8.9 MG/DL Sodium Level 140 MEQ/L Potassium Level 4.2 MEQ/L Chloride Level 106 MEQ/L Carbon Dioxide Level 23.9 MEQ/L Anion Gap 10 MEQ/L Estimat Glomerular Filtration Rate 39 ML/MIN Objective Remarks GENERAL: Obese patient in no acute distress. SKIN: No rashes, ecchymoses or lesions. Cool and dry. HEAD: Atraumatic. Normocephalic. No temporal or scalp tenderness. EYES: No scleral icterus. No injection or drainage. ENT: Nose without bleeding, purulent drainage or septal hematoma. Airway patent. NECK: Trachea midline. No JVD CARDIOVASCULAR: Regular rate and rhythm without murmurs, gallops, or rubs. RESPIRATORY: bilaterally decreased air entry GASTROINTESTINAL: Abdomen soft, non-tender, nondistended.truncal obesity. No guarding. MUSCULOSKELETAL: Extremities without clubbing, cyanosis, or edema. No calf tenderness. NEUROLOGICAL: Awake and alert. Motor and sensory grossly within normal limits. Normal speech. Medications and IVs Current Medications Medications (Trade) Dose Ordered Sig/Az Route Start Time Stop Time Status Last Admin (NS Flush) 2 ml UNSCH PRN IV FLUSH 08/07/17 17:00 (NS Flush) 2 ml BID IV FLUSH 08/07/17 21:00 08/12/17 08:43 (Narcan Inj) 0.4 mg UNSCH PRN IV PUSH 08/07/17 17:00 Diltiazem HCl 125 mg/Sodium Chloride 125 ml @ 5 mls/hr TITRATE PRN IV 08/07/17 19:30 08/08/17 04:48 (Zyloprim) 100 mg DAILY PO 08/08/17 09:00 08/12/17 08:43 (Lipitor) 40 mg HS PO 08/07/17 21:00 08/11/17 21:20 (Urecholine) 25 mg DAILY PO 08/08/17 09:00 08/12/17 08:43 (Cardura) 4 mg HS PO 08/07/17 21:00 08/11/17 21:20 (Synthroid) 125 mcg DAILY@0600 PO 08/08/17 06:00 08/12/17 06:05 (Altace) 5 mg DAILY PO 08/08/17 09:00 Future Hold 08/10/17 08:59 (Zoloft) 50 mg DAILY PO 08/08/17 09:00 08/12/17 08:43 (Ultracet 37.5-325 Mg) 1 tab Q6H PRN PO 08/07/17 19:45 08/12/17 00:02 (Protonix) 20 mg DAILY PO 08/08/17 09:00 08/12/17 08:43 (Mirapex) 0.5 mg HS PO 08/07/17 21:00 08/11/17 21:20 (D50w (Vial) Inj) 50 ml UNSCH PRN IV PUSH 08/07/17 23:30 (Glucagon Inj) 1 mg UNSCH PRN OTHER 08/07/17 23:30 (Aspirin Chew) 81 mg DAILY CHEW 08/09/17 09:00 08/12/17 08:42 (Cardizem) 60 mg Q6HR PO 08/08/17 12:00 08/12/17 06:05 (NovoLOG SUPPLEMENTAL SCALE) 1 ACHS SLIDING SCALE SQ 08/09/17 12:00 08/12/17 08:44 (NovoLOG INJ) 5 units TIDAC SQ 08/09/17 12:00 08/12/17 08:43 (Eliquis) 5 mg BID PO 08/10/17 21:00 08/12/17 08:43 (Levemir Inj) 15 units BID SQ 08/11/17 09:00 08/12/17 08:44 A/P Assessment and Plan 1. NSTEMI Hospitalized, on Cardiac Enzymes, Cardiac monitoring, Heparin drip, Cardizem drip, V/Q scan, Echocardiogram, Patient seen by Doctor Terry Adler with diagnosis of Elevated troponin and atypical chest pain recommended for V/Q scan to rule out PE was performed and low probability for PE, status post Stress test negative for Ischemia, as per Doctor Adler okay to discharge is stable to go on Eliquis and Cardizem and follow with security compliance specialist doctor Jose. 2. Hematuria while on Heparin, will need further Urologic workup as outpatient. no further hematuria. 3. Atrial Fibrillation with RVR on Cardizem by mouth, History of Cardiac ablation. 4. Hypertension controlled. 5. DM II Uncontrolled Sliding scale to Medium dose, Levemir 15 units every 12 hours and scheduled 5 units with every meal and follow closely try to keep blood sugar between 140 to 180 gr/dl. 6. MUNA on CPAP at night 7. CKD III stable. 8. Hypothyroidism continue Hormonal replacement. 9. Chronic Heart Failure with reduced Ejection Fraction EF 43% on actual Stress test DVT prophylaxis with SCDs due to Hematuria. Discharge Planning Discharge Home today. Martin Hays MD Aug 12, 2017 10:11
[2017-08-12] MEDS ORDERED: APIX5TAB PO (10:15)
[2017-08-12] MEDS ORDERED: DILT60TA33 PO (10:15)
--- NOTE | 2017-08-12 10:20 | HHI.DS ---
Discharge Summary Admission Date Aug 07, 2017 at 5:03 pm Discharge Date: Aug 12, 2017 Admitting Diagnosis non-STEMI, congestive heart failure (1) Paroxysmal supraventricular tachycardia ICD Code: I47.1 - Paroxysmal supraventricular tachycardia Diagnosis: Principal Status: Acute (2) Diabetes ICD Code: E11.9 - Diabetes Diagnosis: Principal Status: Acute (3) Hypertension ICD Code: I10 - Hypertension Diagnosis: Secondary Status: Acute (4) Chronic kidney disease, stage III (moderate) ICD Code: N18.3 - Chronic kidney disease, stage III (moderate) Diagnosis: Secondary Status: Acute Procedures Stress test Brief History - From Admission hx from patient , er md, patient's er nurse and review of med records started yesterday, chest pain and shortness of breath started feeling better when ambulance came and given something this morning again, he has shortness of breath , and finally decided to call ems again and came today now the pain is more on left , yesterday was middle of chest pain no radiation of pain has chronic neck pain from arthritis - on pain managment docs with shots denies peirpheral edema no recent prolonged travels no blood in stool or urine at home but was started on heparin drip in ER and urine now is starting to have blood in urine no water pills at home no chf hx sees dr dias because he had ablation for afib no fever/ no nausea/ no vomiting/ no other symptoms has been having trouble trying to get up and roll over had a fall yesterday CBC/BMP: 08/10/17 0646 08/12/17 0515 Significant Findings Laboratory Tests Test 08/09/17 17:54 08/10/17 06:46 08/12/17 05:15 Red Blood Count 4.17 MIL/MM3 (4.50-5.90) 4.41 MIL/MM3 (4.50-5.90) Hemoglobin 11.9 GM/DL (13.0-17.0) 12.5 GM/DL (13.0-17.0) Hematocrit 36.4 % (39.0-51.0) 38.5 % (39.0-51.0) Red Cell Distribution Width 18.4 % (11.6-17.2) 18.1 % (11.6-17.2) Neutrophils (%) (Auto) 70.1 % (16.0-70.0) Monocytes (%) (Auto) 9.1 % (0.0-8.0) Blood Urea Nitrogen 50 MG/DL (7-18) 38 MG/DL (7-18) Creatinine 2.22 MG/DL (0.60-1.30) 1.72 MG/DL (0.60-1.30) Random Glucose 262 MG/DL (74-106) 184 MG/DL (74-106) Estimat Glomerular Filtration Rate 29 ML/MIN (>89) 39 ML/MIN (>89) Imaging Last Impressions Myocardial Perfusion Scan Nuc Med 08/10/17 0000 Signed Impressions: Service Date/Time: Thursday, August 10, 2017 09:42 - CONCLUSION: The left ventricular chamber is dilated with global hypokinesis. Ejection fraction 43%% . No large infarcts are noted.. RISK CATEGORY: Intermediate (1-3%% Annual Mortality Rate) Kenan Arita MD Lung Scan-VQ Nuclear Medicine 08/08/17 0000 Signed Impressions: Service Date/Time: Tuesday, August 08, 2017 11:19 - CONCLUSION: Low probability for pulmonary embolism. John Neville MD Chest X-Ray 08/07/17 1422 Signed Impressions: Service Date/Time: August 14:39 - CONCLUSION: Pulmonary venous congestion versus early edema. Moderate cardiomegaly.. Luiz Frey MD PE at Discharge GENERAL: Obese patient in no acute distress. SKIN: No rashes, ecchymoses or lesions. Cool and dry. HEAD: Atraumatic. Normocephalic. No temporal or scalp tenderness. EYES: No scleral icterus. No injection or drainage. ENT: Nose without bleeding, purulent drainage or septal hematoma. Airway patent. NECK: Trachea midline. No JVD CARDIOVASCULAR: Regular rate and rhythm without murmurs, gallops, or rubs. RESPIRATORY: bilaterally decreased air entry GASTROINTESTINAL: Abdomen soft, non-tender, nondistended.truncal obesity. No guarding. MUSCULOSKELETAL: Extremities without clubbing, cyanosis, or edema. No calf tenderness. NEUROLOGICAL: Awake and alert. Motor and sensory grossly within normal limits. Normal speech. Hospital Course This is a pleasant 72 y/o Male who came to ER with Chest pain, he has chronic neck pain from OA on Pain management with injections, started on Heparin drip in ER, he follows with Doctor Dias for Atrial Fibrillation Ablation, has Hypertension, DM II, Atrial Fibrillation, MUNA on CPAP at night, CKD TIA, Hypothyroidism, status post Cardiac Ablation, Admitted with diagnosis of NSTEMI and Cardiology consult in place. Patient seen by Doctor Terry Adler with diagnosis of Elevated troponin and atypical chest pain recommended for V/Q scan to rule out PE was performed and low probability for PE , he will have further ischemic workup by Cardiology stress test vs cardiac cath, seen in his bedroom in the presence of nurse Miss Aviles. 08/09: Seen in his bedroom in the presence of nurse Miss Quiñones, revenue specialist doctor Terry Adler In to see the patient recommended for Cardiac Stress test for tomorrow morning. Atrial Fibrillation now in sinus rhythm resolved hematuria for outpatient Urology workup to rule out malignancy. 08/10: Stable in his bedroom awaiting for Stress test later today, discussed with nurse Miss Quiñones, 08/11: Seen in his bedroom, at this time no pain, increased his Levemir to 15 units BID to try to control his blood sugar, no nausea, vomit or diarrhea, no ischemia on Stress test will get clearance by Cardiology for discharge home. 08/12: Stable in his bedroom as recommended by revenue specialist patient stable and okay to go home he will follow with Doctor Dias on discharge. no nausea, vomit or diarrhea, discussed with nurse Miss Ayala. recommended to continue Eliquis and Cardizem by mouth. Assessment and Plan 1. NSTEMI Hospitalized, on Cardiac Enzymes, Cardiac monitoring, Heparin drip, Cardizem drip, V/Q scan, Echocardiogram, Patient seen by Doctor Terry Adler with diagnosis of Elevated troponin and atypical chest pain recommended for V/Q scan to rule out PE was performed and low probability for PE, status post Stress test negative for Ischemia, as per Doctor Adler okay to discharge is stable to go on Eliquis and Cardizem and follow with employee communications specialist doctor Dias. 2. Hematuria while on Heparin, will need further Urologic workup as outpatient. no further hematuria. 3. Atrial Fibrillation with RVR on Cardizem by mouth, History of Cardiac ablation. 4. Hypertension controlled. 5. DM II Uncontrolled Sliding scale to Medium dose, Levemir 15 units every 12 hours and scheduled 5 units with every meal and follow closely try to keep blood sugar between 140 to 180 gr/dl. 6. MUNA on CPAP at night 7. CKD III stable. 8. Hypothyroidism continue Hormonal replacement. 9. Chronic Heart Failure with reduced Ejection Fraction EF 43% on actual Stress test DVT prophylaxis with SCDs due to Hematuria. Discharge Planning Discharge Home today. Pt Condition on Discharge: Good Discharge Disposition: Discharge Home Discharge Time: > 30 minutes Discharge Instructions DIET: Follow Instructions for: Heart Healthy Diet, Diabetic Diet Activities you can perform: Regular-No Restrictions Martin Hays MD Aug 12, 2017 10:20 am
--- NOTE | 2017-08-12 11:01 | PD.CARD.PN ---
Subjective Subjective Remarks No events overnight Continues in sinus rhythm with episodes of controlled afib Minimal hematuria which was since stopped, no further episodes Objective Medications Current Medications Medications (Trade) Dose Ordered Sig/Az Route Start Time Stop Time Status Last Admin (NS Flush) 2 ml UNSCH PRN IV FLUSH 08/07/17 17:00 (NS Flush) 2 ml BID IV FLUSH 08/07/17 21:00 08/12/17 08:43 (Narcan Inj) 0.4 mg UNSCH PRN IV PUSH 08/07/17 17:00 Diltiazem HCl 125 mg/Sodium Chloride 125 ml @ 5 mls/hr TITRATE PRN IV 08/07/17 19:30 08/08/17 04:48 (Zyloprim) 100 mg DAILY PO 08/08/17 09:00 08/12/17 08:43 (Lipitor) 40 mg HS PO 08/07/17 21:00 08/11/17 21:20 (Urecholine) 25 mg DAILY PO 08/08/17 09:00 08/12/17 08:43 (Cardura) 4 mg HS PO 08/07/17 21:00 08/11/17 21:20 (Synthroid) 125 mcg DAILY@0600 PO 08/08/17 06:00 08/12/17 06:05 (Altace) 5 mg DAILY PO 08/08/17 09:00 Future Hold 08/10/17 08:59 (Zoloft) 50 mg DAILY PO 08/08/17 09:00 08/12/17 08:43 (Ultracet 37.5-325 Mg) 1 tab Q6H PRN PO 08/07/17 19:45 08/12/17 00:02 (Protonix) 20 mg DAILY PO 08/08/17 09:00 08/12/17 08:43 (Mirapex) 0.5 mg HS PO 08/07/17 21:00 08/11/17 21:20 (D50w (Vial) Inj) 50 ml UNSCH PRN IV PUSH 08/07/17 23:30 (Glucagon Inj) 1 mg UNSCH PRN OTHER 08/07/17 23:30 (Aspirin Chew) 81 mg DAILY CHEW 08/09/17 09:00 08/12/17 08:42 (Cardizem) 60 mg Q6HR PO 08/08/17 12:00 08/12/17 06:05 (NovoLOG SUPPLEMENTAL SCALE) 1 ACHS SLIDING SCALE SQ 08/09/17 12:00 08/12/17 08:44 (NovoLOG INJ) 5 units TIDAC SQ 08/09/17 12:00 08/12/17 08:43 (Eliquis) 5 mg BID PO 08/10/17 21:00 08/12/17 08:43 (Levemir Inj) 15 units BID SQ 08/11/17 09:00 08/12/17 08:44 Vital Signs / I&O Vital Signs Date Time Temp Pulse Resp B/P (MAP) Pulse Ox O2 Delivery O2 Flow Rate FiO2 08/12/17 10:01 92 08/12/17 09:00 82 08/12/17 08:00 83 08/12/17 08:00 97 Room Air 08/12/17 08:00 97.5 83 18 132/79 (96) 97 08/12/17 07:13 102 08/12/17 06:00 95 08/12/17 05:00 84 08/12/17 04:00 97 08/12/17 03:00 105 08/12/17 03:00 97 Nasal Cannula 2.00 08/12/17 03:00 97.8 91 18 142/95 (111) 97 08/12/17 02:00 91 08/12/17 01:00 98 08/12/17 00:00 Nasal Cannula 2.00 08/12/17 00:00 106 08/11/17 23:00 114 08/11/17 23:00 94 Room Air 08/11/17 23:00 98.0 85 18 143/96 (112) 94 08/11/17 22:00 102 08/11/17 21:00 102 08/11/17 20:00 102 08/11/17 20:00 93 Room Air 08/11/17 20:00 97.9 92 18 141/92 (108) 93 08/11/17 19:00 110 08/11/17 18:00 106 08/11/17 17:00 92 08/11/17 16:00 100 08/11/17 15:00 97.3 15 18 124/76 (92) 96 08/11/17 15:00 91 08/11/17 15:00 Room Air 2.00 21 08/11/17 14:01 92 08/11/17 13:56 78 08/11/17 12:00 91 08/11/17 11:00 92 08/11/17 11:00 Room Air 2.00 21 08/11/17 11:00 97.9 96 18 137/89 (105) 96 I/O 08/11/17 08/11/17 08/11/17 08/12/17 08/12/17 08/12/17 07:00 15:00 23:00 07:00 15:00 23:00 Intake Total 480 ml 460 ml Output Total 800 ml 700 ml Balance -320 ml -240 ml Intake Oral 480 ml 460 ml Output Urine Total 800 ml 700 ml # Voids 5 # Bowel Movements 0 2 0 Physical Exam GENERAL: NAD, AAOx3 SKIN: Warm and dry. HEAD: Atraumatic. Normocephalic. EYES: Pupils equal and round. No scleral icterus. No injection or drainage. ENT: No nasal bleeding or discharge. Mucous membranes pink and moist. NECK: Trachea midline. No JVD. CARDIOVASCULAR: Regular rate and rhythm. RESPIRATORY: No accessory muscle use. Clear to auscultation. Breath sounds equal bilaterally. GASTROINTESTINAL: Abdomen soft, non-tender, nondistended. Hepatic and splenic margins not palpable. MUSCULOSKELETAL: Extremities without clubbing, cyanosis, or edema. No obvious deformities. NEUROLOGICAL: Awake and alert. No obvious cranial nerve deficits. Motor grossly within normal limits. Five out of 5 muscle strength in the arms and legs. Normal speech. PSYCHIATRIC: Appropriate mood and affect; insight and judgment normal. Laboratory Laboratory Tests Test 08/12/17 05:15 Blood Urea Nitrogen 38 MG/DL Creatinine 1.72 MG/DL Random Glucose 184 MG/DL Calcium Level 8.9 MG/DL Sodium Level 140 MEQ/L Potassium Level 4.2 MEQ/L Chloride Level 106 MEQ/L Carbon Dioxide Level 23.9 MEQ/L Anion Gap 10 MEQ/L Estimat Glomerular Filtration Rate 39 ML/MIN Assessment and Plan Problem List: (1) PAF (paroxysmal atrial fibrillation) ICD Codes: I48.0 - Paroxysmal atrial fibrillation (2) Elevated troponin ICD Codes: R74.8 - Abnormal levels of other serum enzymes (3) History of TIA (transient ischemic attack) ICD Codes: Z86.73 - History of TIA (transient ischemic attack) Status: Acute (4) Chronic kidney disease, stage III (moderate) ICD Codes: N18.3 - Chronic kidney disease, stage III (moderate) Status: Acute (5) Hypertension ICD Codes: I10 - Hypertension Status: Acute Assessment and Plan 1) Atypical chest pain with mild elevation of troponin May be due to going back into atrial fibrillation Stress test negative for ischemia 2) Afib Converted to normal sinus rhythm CHADVASc = 5 Eliquis 5mg BID, will have to watch for hematuria Con't Cardizem PO 3) Hematuria Resolved Should have eventual Urology workup to rule out malignancy 4) Creatinine increasing Will hold MANJIT-I BMP in the am 5) Cardiovascularly stable for discharge Will follow up with Dr. Garcia upon discharge Terry Adler DO Aug 12, 2017 11:01
== END 2017-08-12 12:27 | disposition home or self-care (01) | DRG 281 ==
LOC: NEPE 13:49 → NEDA 17:03 → HCIN 22:20 → HCIS 08-08 16:52
PROVIDERS: ADMIT Internal Medicine; ATTEND Internal Medicine
DX: I21.4 Non-ST elevation (NSTEMI) myocardial infarction (principal); I50.22 Chronic systolic (congestive) heart failure; E11.22 Type 2 diabetes mellitus with diabetic chronic kidney disease; I13.0 Hypertensive heart and chronic kidney disease with heart failure and stage 1 through stage 4 chronic kidney disease, or unspecified chronic kidney disease; I47.1 Supraventricular tachycardia; G89.29 Other chronic pain; M54.2 Cervicalgia; E03.9 Hypothyroidism, unspecified; N18.3 Chronic kidney disease, stage 3 (moderate); E11.65 Type 2 diabetes mellitus with hyperglycemia; E78.00 Pure hypercholesterolemia, unspecified; Z86.73 Personal history of transient ischemic attack (TIA), and cerebral infarction without residual deficits; G47.33 Obstructive sleep apnea (adult) (pediatric); I25.2 Old myocardial infarction; I48.0 Paroxysmal atrial fibrillation; K21.9 Gastro-esophageal reflux disease without esophagitis; W19.XXXA Unspecified fall, initial encounter; Y92.9 Unspecified place or not applicable; Z79.4 Long term (current) use of insulin
CPT/HCPCS: 71010; 78452; 78582; 80048; 80053; 82550; 82948; 83036; 83735; 83880; 84484; 85025; 85027; 85610; 85730; 93005; 93017; 93306; 94002; 94003; A9502; A9540; A9567; J1644; J1815; J1940; J2785

== ENCOUNTER 2017-10-22 14:04 | Day surgery (SDC) | payer OTHER ==
[~2017-10-22] VITALS: Ht 172.7 cm; Wt 109.8 kg
[~2017-10-22 14:04] MED LIST changes: +ALLO100T PO; -ALLO300T2 PO; +APIX5TAB PO; +ASPI-516 CHEW; -ASPI81 PO; +ATOR40TA16 PO; -BACT800T5 PO; -BETH25 PO; +BETH25TA2 PO; -CARD4TAB2 PO; -CIME400; -CLIN150 PO; +DILT60TA33 PO; +DOXA4TAB3 PO; -FISH1000 PO; -FLON0.053; +LANTUS2P SQ; -LANTUSP SQ; -LEVO.15 PO; +LEVO125T4 PO; -LORTA5 PO; -OMEP20TA PO; +PRAM0.5T PO; +PRIL20TA2 PO; +RAMI5CAP PO; -RAMI5CAP36 PO; +SERT-132 PO; -SIMV80TA PO; +TRAM-388 PO; +VITA2000 PO; -VITA400C28 PO; -ZOLO50TA PO
[2017-10-22] MEDS ORDERED: LORazepam 1 MG TAB SL SCH (14:30)
[2017-10-22] MEDS ORDERED: SODIUM CHLORID 0.9% 500 ML INJ 500 ML IV SCH (14:30)
[2017-10-22] MEDS ORDERED: LACTATED RINGER'S 1000 ML IV PRN (14:45)
[2017-10-22] MEDS ORDERED: SODIUM CHLORID 0.9% 500 ML IV PRN (14:45)
[2017-10-22] MEDS ORDERED: POVIDONE IODINE 5% (ANTISEPSIS KIT) 4 APPLICATIONS EACH NARE PRN (14:45)
[2017-10-22] MEDS ORDERED: CHLORHEXIDINE GLUCONATE 2 % 1 PACK (2 CLOTHS) TOPICAL PRN (14:45)
[2017-10-22] MEDS ORDERED: METOPROLOL TARTRATE 25 MG TAB PO PRN (14:45)
[2017-10-22 15:10] VITALS: BP 116/79; PULSE 74; RESP 18; TEMP 98.7; O2SAT 95
[2017-10-22 15:17] LABS: AUTOMATED NEUTROPHIL # 4.3 TH/MM3 (1.8-7.7); BASOPHIL % 0.7 % (0.0-2.0); EOSINOPHIL # 0.2 TH/MM3 (0-0.4); EOSINOPHIL % 3.5 % (0.0-4.0); HEMATOCRIT 36.2 % (39.0-51.0); HEMOGLOBIN 11.7 GM/DL (13.0-17.0); LYMPH % 21.4 % (9.0-44.0); LYMPHOCYTE # 1.4 TH/MM3 (1.0-4.8); MEAN CELL VOLUME 86.1 FL (80.0-100.0); MEAN CORPUSCULAR HGB CONC 32.5 % (32.0-36.0); MEAN PLATELET VOLUME 8.4 FL (7.0-11.0); MONO % 10.6 % (0.0-8.0); MONOCYTE # 0.7 TH/MM3 (0-0.9); NEUT % 63.8 % (16.0-70.0); PLATELET COUNT 229 TH/MM3 (150-450); RED CELL DISTRIBUTION WIDTH 18.2 % (11.6-17.2); WHITE BLOOD COUNT 6.7 TH/MM3 (4.0-11.0)
[2017-10-22] MEDS ORDERED: HYDR-3580 PO (15:19)
[2017-10-22] MEDS ORDERED: FISHCAP4 PO (15:19)
[2017-10-22] MEDS ORDERED: NIAC500T4 PO (15:19)
[2017-10-22] MEDS ORDERED: TEST-25 (15:19)
[2017-10-22] MEDS ORDERED: NOVOLOGP2 SQ (15:19)
[2017-10-22] MEDS ORDERED: BUSP5TAB PO (15:19)
[2017-10-22 15:30] LABS: INTERNATIONAL NORMALIZED RATIO 1.1 RATIO; PROTHROMBIN TIME - PATIENT 10.8 SEC (9.8-11.6)
[2017-10-22 15:39] LABS: BICARBONATE 24.1 MEQ/L (21.0-32.0); CALCIUM 8.7 MG/DL (8.5-10.1); CREATININE 2.56 MG/DL (0.60-1.30)
[2017-10-22] MEDS ORDERED: MIDAZOLAM HCL 2 MG/2 ML VIAL ONE (17:51)
[2017-10-22] MEDS ORDERED: PROTAMINE SULFATE 50 MG/5 ML VIAL ONE ×2 (17:51→20:50)
[2017-10-22] MEDS ORDERED: HEPARIN SODIUM - IV 10,000 UNITS/10 ML VIAL ONE (17:52)
[2017-10-22] MEDS ORDERED: DEXTROSE 50% IN WATER 50 ML SYRINGE ONE (17:55)
[2017-10-22] MEDS ORDERED: HEPARIN-NS/PF INJ 1,500 ML ONE (18:10)
[2017-10-22] MEDS ORDERED: LEVOFLOXACIN 500 MG PREMIX INJ 100 ML IV ONE (18:10)
[2017-10-22] MEDS ORDERED: HEPARIN-D5W 25,000 U/250 ML 250 ML ONE ×2 (18:28→18:47)
[2017-10-22] MEDS ORDERED: DO NOT ADM ANY ANTICOAGULANT DRUGS PRN (18:45)
[2017-10-22] MEDS ORDERED: ISOPROTERENOL HCL 1 MG/5 ML AMP ONE (18:47)
--- NOTE | 2017-10-22 20:44 | CATHPROC ---
Patient Name: JEROD MALONE Study #: [id number] Initial MD: Abhi Garcia Date of : 1945 Study Date: 10/22/2017 Cardiac Catheterization Report 10/22/2017 8:44:13 PM Financial #: [id number] 1 of 10 Patient Name: JEROD MALONE Study #: [id number] Initial MD: Abhi Garcia Date of : 1945 Study Date: 10/22/2017 Entire Case Report Patient Information Patient Name JEROD MALONE Date of 1945 Age 72 years Financial # [id number] Gender M AlternateID Lab Number 2 Room Number DC08 Height (in) 68.0 Height (cm) 172.7 BSA 2.22 Weight (lbs) 241.8 Weight (kg) 109.9 Patient Address/Phone Number Home Address [facility] Home Phone Number [phone] [facility] [id number] Study Information Study Number Admission Scheduled Start Study Start [id number] Oct 22 2017 2:04PM 10/22/2017 Oct 22 2017 5:46PM [place] Service Electrophysiology Study Admit Source Facility Department Other [facility] - Radiology Asst Physician and Clinical Staff Initial Abhi Yanez Security System Technician Cherri Alvares,RT(R) TECH2 Other Anesthesia, LEAD WEB APPLICATION DEVELOPER Recorder Camelia Akins,RN Recorder Marine Flores,KELLIE Scrub Dani CoreaRT(R) Procedures Performed Procedure Location (Site) Vessel Name ICE CATHETER INSERT RA Atruim RF Ablation LT. ATRIUM LT. ATRIUM 10/22/2017 8:44:13 PM Financial #: [id number] 2 of 10 Patient Name: JEROD MALONE Study #: [id number] Initial MD: Abhi Garcia Date of : 1945 Study Date: 10/22/2017 Equipment Time Commercial Drafter Description Size Mfg Part Number Used/Scraped NEEDLE, TRANSSEPTAL NRG 98 [id number] 17:47 [facility] Used C1 *[id number] [employer]/ EP [id number] 17:47 KIT, TRANSDUCER / AFIB Used PACER *[id number]- CATHETER, TACTICATH ABLAT BUNDLE 17:47 B[facility] Used 65 BUNDLE *[id number]- BUNDLE [id number] CATHETER, FR7 OPTIMA SPIRAL 17:47 B[facility] FR7 *[id number]- Used BUNDLE BUNDLE [id number] 17:47 [facility] CATHETER, JSN, QUAD BUNDLE FR 5 *[id number]- Used BUNDLE [id number] 17:47 BUND[employer] CATHETER, JSN, QUAD BUNDLE FR 5 *[id number]- Used BUNDLE [id number] SET, COOL POINT TUBING 17:47 BUNDLE-[facility] *[id number]- Used BUNDLE BUNDLE SHEATH, FR8.5 STEERABLE SM 17:47 BUND[facility] 71CM [id number] Used 71CM BUNDLE COVER, TRANSDUCER CABLE 612-113 17:47 [employer] Used ACUNAV *[id number] 17:47 CORDIS/PACER SHEATH, FR10 CHELSEA 11CM FR 10 Used *[id number] 17:47 CORDIS/PACER SHEATH, FR9 CHELSEA 11CM FR 9 [id number] Used [id number] 17:47 [employer] INDUSTRIES PACK, CCL CUSTOM * Used *[id number] 17:47 [employer] PACER [place], LIMB * 2530 *[id number] Used [id number] 17:47 [employer] MEDICAL SHEATH, FR4.5 PRELUDE 11CM FR 4.5 Used [id number] 17:47 NAMIC TUBING, HIGH PRESSURE 48" 48" Used *[id number] 17:47 NAMIC TUBING, HIGH PRESSURE 48" 48" Used *[id number] 17:47 [employer] MEDICAL BLANKET,WARM AIR CCL * Used *[id number] 17:47 [facility] MEDICAL ELECTRODE KIT, TWYLA X SURFACE * Used *[id number] [id number] 17:47 [facility] MEDICAL SHEATH, EPS, FR6 FAST CATH FR 6 Used *1003967 17:47 [facility] MEDICAL SHEATH, EPS, FR7 FAST CATH FR 7 [id number] Used 498902 17:47 [facility] MEDICAL SHEATH, EPS, FR8 FAST CATH FR 8 Used *[id number] CATHETER, ACUNAV FR10 ICE [id number] 18:55 RENU FR 10 Used (RENU) *[id number] [facility] PAD, ELECTROSURGICAL 17:47 * [id number] *[id number] Used SURGICAL GROUNDING (BLUE) 10/22/2017 8:44:13 PM Financial #: [id number] 3 of 10 Patient Name: JEROD MALONE Study #: [id number] Initial MD: Abhi Garcia Date of : 1945 Study Date: 10/22/2017 Insurance Information Insurance Payor Private Health Insurance Third Alliance Party Third Alliance Party Number [employer] G[employer]US HMO HUMCRDonutsO History: Allergies Allergy Reaction *MDRO Multi-Drug Resistant Organism penicillin G Hives History: Risk Factors Hypertension Dyslipidemia Yes Yes Diabetes Diabetes Therapy Labs Hgb (g/dl) Hct (%) RBC (MIL/MM3) WBC (l/cumm) Platelets (thousands) 11.60-17.00 35.00-51.00 4.00-5.90 4.00-11.00 150.00-450.00 11.7 36.2 4.2 6.7 229 Glucose (mg/dl) BUN (mg/dl) Creatinine (mg/dl) BUN:Creatinine (1:x) 74.00-106.00 7.00-18.00 0.50-1.30 10.00-20.00 107 39 2.6 15 Na (meq/l) K (meq/l) 136.00-145.00 3.50-5.10 141 4.8 INR (PTT:PT) 0.90-1.10 1.1 Medication Medication Total Dose (Bolus/Oral) Medication Total Dosage/Unit 1% XYLOCAINE 40 mL HEPARIN 16686 units 10/22/2017 8:44:13 PM Financial #: [id number] 4 of 10 Patient Name: JEROD MALONE Study #: [id number] Initial MD: Abhi Garcia Date of : 1945 Study Date: 10/22/2017 Medications (Bolus/Oral) Medication Time Given Dosage/Unit Administered By Reason 1% XYLOCAINE 10/22/2017 6:48:19 PM 20 mL Anesthesia, LEAD WEB APPLICATION DEVELOPER 20 mL 1% XYLOCAINE given in lab by Anesthesia, LEAD WEB APPLICATION DEVELOPER in Left Groin via Subcutaneous. Ordered by Abhi Garcia. 1% XYLOCAINE 10/22/2017 6:50:18 PM 20 mL Abhi Garcia 20 mL 1% XYLOCAINE given in lab by Abhi Garcia in Right Groin via Subcutaneous. Ordered by Alycia Garcia. HEPARIN 10/22/2017 7:01:18 PM 05811 units Anesthesia, LEAD WEB APPLICATION DEVELOPER 24714 units HEPARIN given in lab by Anesthesia, LEAD WEB APPLICATION DEVELOPER in Right Antecubital via Peripheral IV. Ordered by Abhi Garcia. HEPARIN 10/22/2017 7:20:43 PM 3000 units Anesthesia, LEAD WEB APPLICATION DEVELOPER 3000 units HEPARIN given in lab by Anesthesia, LEAD WEB APPLICATION DEVELOPER via Peripheral IV. Ordered by Abhi Garcia. HEPARIN 10/22/2017 7:33:16 PM 4000 units Anesthesia, LEAD WEB APPLICATION DEVELOPER 4000 units HEPARIN given in lab by Anesthesia, LEAD WEB APPLICATION DEVELOPER via Peripheral IV. Ordered by Abhi Garcia. Medication (Drip) Medication Time Given Dosage/Unit Concentration/Unit Diluent (ml) Solution HEPARIN DRIP 10/22/2017 7:22:17 PM 1000 units/hr 87228 units 250 D5W 1000 units/hr HEPARIN DRIP given in lab by Anesthesia, LEAD WEB APPLICATION DEVELOPER via Peripheral IV. Pump/Drip Flow = 10 ml /hr [place] [address] units in 250 ml. Ordered by Abhi Garcia. ISUPREL 10/22/2017 8:22:41 PM 20 mcg/min 1 mg 250 NaCl .9 20 mcg/min ISUPREL given in lab by Anesthesia, LEAD WEB APPLICATION DEVELOPER via Peripheral IV. Pump/Drip Flow = 300 ml/hr usi ng NaCl .9 with a concentration of 1 mg in 250 ml. Ordered by Abhi Garcia. Reason: As per physicians verbal order. LEVAQUIN 10/22/2017 6:30:00 PM 500 mL/hr 500 100 NaCl .9 500 mL/hr LEVAQUIN given in lab by Anesthesia, LEAD WEB APPLICATION DEVELOPER in Right Antecubital via Peripheral IV. Pump/Drip Flow = 0 ml/hr using NaCl .9 with a concentration of 500 in 100 ml. Ordered by Abhi Garcia. 10/22/2017 8:44:13 PM Financial #: [id number] 5 of 10 Patient Name: JEROD MALONE Study #: [id number] Initial MD: Abhi Garcia Date of : 1945 Study Date: 10/22/2017 Initial Case Assessment Cardiovascular HR Rhythm NIBP Chest Pain 135 AF W/RVR 116/79 0 Edema Present Skin color Skin None Normal Warm Dry Circulatory - Right Pulses Dorsalis Pedis 1 Scale (0,1,2,3,4,d) Circulatory - Left Pulses Dorsalis Pedis 1 Scale (0,1,2,3,4,d) Circulatory - Lower Extremities Color Lower Right Color Lower Left Normal Normal Neurological State Oriented to time-place- Alert Moves all extremities person Respiration - General Respiration Rate SpO2 (%) (B/min) 20 95 10/22/2017 8:44:13 PM Financial #: [id number] Patient Name: JEROD MALONE Study #: [id number] Initial MD: Abhi Garcia Date of : 1945 Study Date: 10/22/2017 Final Case Assessment Cardiovascular HR Rhythm NIBP Chest Pain 100 sr 116/58 0 Edema Present Skin color Skin None Normal Warm Dry Circulatory - Right Pulses Dorsalis Pedis 1 Scale (0,1,2,3,4,d) Circulatory - Left Pulses Dorsalis Pedis 1 Scale (0,1,2,3,4,d) Neurological State Oriented to time-place- Alert Moves all extremities person Respiration - General Respiration Rate SpO2 (%) O2 (lpm) (B/min) 18 98 4 Chronological Log Time Study Chronological Log 17:57:44 Patient has been NPO for More than 6Hrs. 17:57:44 History and physical on the chart. 17:57:44 Patient arrived via Bed. 17:57:44 Patient Name, D.O.B, / Armband Verified By R.N. 17:57:44 Consent signed by the physician and the patient and verified by the Radiology Asst staff. 17:57:44 Pre-op and post- op instructions given; patient acknowledges understanding of instructions. 17:58:18 Verbal Stimulation=2 Physical Stimulation=2 Airway=2 Respiration=2 TOTAL=8. (0=absent, 1=li mited, 2=present) Assessment: Initial Case, QB=267 BPM, Rhythm=AF W/RVR, ZZWJ=003/79 mmhg, Chest Pain=0, Edema=No ne, Color=Normal, Skin = Warm, Dry Right Pulses: Freddy Ped=1 Left Pulses: Freddy Ped=1 18:00:00 Lower Right Extremities: Color=Normal Lower Left Extremities: Color=Normal Neurological: State=Alert, Ox3, GONSALEZ Respiration: Resp=20 B/min, SpO2=95 % 18:01:00 Anesthesia at bedside. Assumes care of patient. 10/22/2017 8:44:13 PM Financial #: [id number] Patient Name: JEROD MALONE Study #: [id number] Initial MD: Abhi Garcia Date of : 1945 Study Date: 10/22/2017 18:02:27 Skin Breakdown- none per pt. 18:02:29 Patient Warmer Placed on the Table. 18:02:30 Disposable Defibrillator Pads Placed On Patient. 18:02:31 Titi Prominences Protected 18:02:34 A # 20 IV was noted in the Forearm (right). Grade = 0 0.9% NaCl @ KVO. 18:02:35 A # 20 IV was noted in the Hand (left). Grade = 0 0.9% NaCl at KVO. 18:08:57 Anesthesia present in lab for intubation. Pt intubated using glidescope with Dr. Ghosh present. A 14Fr fowler was inserted using aseptic technique. Clear 18:11:21 yellow urine-fowler secured;bag to bedside drainage. 18:12:22 Bilateral groins prepped with 2% chlorhexidine, and draped after a 3 minute waiting time. 18:20:16 Reference ECG taken 18:27:35 paged 18:28:55 MD responded 500 mL/hr LEVAQUIN given in lab by Anesthesia, LEAD WEB APPLICATION DEVELOPER in Right Antecubital via Peripheral IV. Pum p/Drip Flow = 0 18:30:00 ml/hr using NaCl .9 with a concentration of 500 in 100 ml. Ordered by Abhi Garcia. Time Out. Correct patient, procedure, procedure equipment, site and side verified with physicia n present. Time 18:44:33 concurred by MD, individual staff and LEAD WEB APPLICATION DEVELOPER. Time Out #2 - Consents verified, patient in correct position, all results are labled and displa yed, safety precautions 18:44:35 taken, antibiotics administered. Time out concurred by MD, individual staff and LEAD WEB APPLICATION DEVELOPER in procedu re 18:44:37 Case Start 18:45:02 GLORIA IN PROGRESS 18:47:29 GLORIA COMPLETE 18:48:19 20 mL 1% XYLOCAINE given in lab by Anesthesia, LEAD WEB APPLICATION DEVELOPER in Left Groin via Subcutaneous. Ordered by Abhi Garcia. 18:48:34 Vascular access was obtained in the Fem Vein (left). 18:48:41 Vascular access was obtained in the Fem Vein (left). 18:48:41 Vascular access was obtained in the Fem Vein (left). 18:48:47 Vascular access was obtained in the Fem Art (left). 18:49:30 A SHEATH, FR4.5 PRELUDE 11CM FR 4.5 was advanced into the Fem Art (left) using the Modified Seldinger technique. 18:49:43 A SHEATH, EPS, FR6 FAST CATH FR 6 was advanced into the Fem Vein (left) using the Modified Seldinger technique. 18:49:55 A SHEATH, EPS, FR7 FAST CATH FR 7 was advanced into the Fem Vein (left) using the Modified Seldinger technique. 18:49:58 A SHEATH, FR10 CHELSEA 11CM FR 10 was advanced into the Fem Vein (left) using the Modified S eldinger technique. 18:50:18 20 mL 1% XYLOCAINE given in lab by Abhi Garcia in Right Groin via Subcutaneous. Ordered b Abhi Pineda. 18:50:27 Vascular access was obtained in the Fem Vein (right). 18:50:31 A SHEATH, EPS, FR8 FAST CATH FR 8 was advanced into the Fem Vein (right) using the Modified Seldinger technique. A CATHETER, JSN, QUAD BUNDLE FR 5 was advanced vis Fem Vein (left) and placed in the CS. Placem ent was visually 18:52:40 confirmed under fluoroscopy. A CATHETER, JSN, QUAD BUNDLE FR 5 was advanced vis Fem Vein (left) and placed in the HIS. Place ment was 18:52:56 visually confirmed under fluoroscopy. 18:54:39 CATHETER, ACUNAV FR10 ICE (RENU) FR 10 Was Postioned. A SHEATH, FR8.5 STEERABLE SM 71CM BUNDLE 71CM was exchanged in the Fem Vein (right). This was n ecessary in 18:55:33 order to accomodate a larger catheter. 18:55:48 BAYLIS NEEDLE INSERTED 10/22/2017 8:44:13 PM Financial #: [id number] 8 of 10 Patient Name: JEROD MALONE Study #: [id number] Initial MD: Abhi Garcia Date of : 1945 Study Date: 10/22/2017 31212 units HEPARIN given in lab by Anesthesia, LEAD WEB APPLICATION DEVELOPER in Right Antecubital via Peripheral IV. Or dered by Jose, 19:01:18 Abhi. 19:01:52 A eps was advanced to the right atrium and passed through the septal wall to the left atriu m. 19:01:55 BAYLIS NEEDLE REMOVED A CATHETER, FR7 OPTIMA SPIRAL BUNDLE FR7 was advanced vis Fem Vein (right) and placed in the LA . Placement 19:03:40 was visually confirmed under fluoroscopy. 19:03:53 MAPPING IN PROGRESS 19:10:00 MAPPING CATHETER REMOVED 19:11:10 Activated Clotting Time Drawn 19:12:30 BLOOD SUGAR RECHECK 119 A CATHETER, TACTICATH ABLAT 65 BUNDLE was advanced vis Fem Vein (right) and placed in the LA. P lacement was 19:13:20 visually confirmed under fluoroscopy. 19:15:56 RF Ablation of the LT. ATRIUM with a CATHETER, TACTICATH ABLAT 65 BUNDLE. 19:17:13 ACT (Normal Range 90-180) = 280 19:20:43 3000 units HEPARIN given in lab by Anesthesia, LEAD WEB APPLICATION DEVELOPER via Peripheral IV. Ordered by Winston Garcia. 1000 units/hr HEPARIN DRIP given in lab by Anesthesia, LEAD WEB APPLICATION DEVELOPER via Peripheral IV. Pump/Drip Flow = 10 ml/hr using 19:22:17 [place] [address] units in 250 ml. Ordered by Abhi Garcia. 19:29:04 Activated Clotting Time Drawn 19:29:08 ABLATION IN PROGRESS 19:32:58 ACT (Normal Range 90-180) = 293 19:33:16 4000 units HEPARIN given in lab by Anesthesia, LEAD WEB APPLICATION DEVELOPER via Peripheral IV. Ordered by Winston Garcia. 19:44:01 Activated Clotting Time Drawn 19:48:58 ACT (Normal Range 90-180) = 342 20:12:07 Activated Clotting Time Drawn 20:15:47 ACT (Normal Range 90-180) = 364 20:21:15 Cardioversion was performed. 200J synch. Converted into Sinus Rythym. 20 mcg/min ISUPREL given in lab by Anesthesia, LEAD WEB APPLICATION DEVELOPER via Peripheral IV. Pump/Drip Flow = 300 ml/ hr using NaCl .9 20:22:41 with a concentration of 1 mg in 250 ml. Ordered by Abhi Garcia. Reason: As per physicians mauro bal order. A SHEATH, FR9 CHELSEA 11CM FR 9 was exchanged in the Fem Vein (right). This was necessary in ord er to minimize 20:34:05 site leakage. 20:34:17 Catheter(s) removed without difficulty 20:34:19 Sheath(s) left in place, will be removed in Holding Area Assessment: Final Case, XO=966 BPM, Rhythm=sr, WGEX=182/58 mmhg, Chest Pain=0, Edema=None, [place] r=Normal, Skin = Warm, Dry Right Pulses: Freddy Ped=1 20:34:21 Left Pulses: Freddy Ped=1 Neurological: State=Alert, Ox3, GONSALEZ Respiration: Resp=18 B/min, SpO2=98 %, O2=4 lpm 20:35:08 Case End 20:35:09 Sterile dressing applied to site 20:35:09 No case complications noted. 20:35:10 Cine recording checked. 20:35:12 Bedside Report will be given. 20:35:16 PACU called. Spoke to raymond 10/22/2017 8:44:13 PM Financial #: [id number] Patient Name: JEROD MALONE Study #: [id number] Initial MD: Abhi Garcia Date of : 1945 Study Date: 10/22/2017 20:36:15 Defibrillator and ground pads removed. Skin intact. 20:39:47 Verbal Stimulation=2 Physical Stimulation=2 Airway=2 Respiration=2 TOTAL=8. (0=absent, 1=l imited, 2=present) End Study - Contrast Media Used In Study Contrast Total Opened (mL) Total Used (mL) Total Wasted (mL) Unspecified 0 0 0 End Study - Maximum Contrast Load Max Contrast Load (mL) 211.4 End Study - Radiation Exposure Fluoro Time (minutes) 4.3 End Study - Patient Disposition Complications Transferred To Interventional Outcome No Telemetry Bed successful 10/22/2017 8:44:13 PM Financial #: [id number] 10 10
[2017-10-22] MEDS ORDERED: SODIUM CHLOR 0.9% 250 ML INJ 250 ML IV PRN (20:45)
[2017-10-22] MEDS ORDERED: ONDANSETRON HCL 4 MG/2 ML VIAL IV PUSH PRN (20:45)
[2017-10-22] MEDS ORDERED: LIDOCAINE HCL 1% 50 ML VIAL INFIL PRN (20:45)
[2017-10-22] MEDS ORDERED: ATROPINE SULFATE 1 MG/ML VIAL IV PUSH PRN (20:45)
[2017-10-22] MEDS ORDERED: LORazepam 2 MG/ML VIAL IV PUSH PRN (20:45)
[2017-10-22] MEDS ORDERED: oxyCODONE/ACETAMINOPHEN 5 MG/325 MG TAB PO PRN ×2 (20:45)
[2017-10-22] MEDS ORDERED: BACITRACIN OINT 0.9 GM PKT TOP ONE (20:45)
[2017-10-22] MEDS ORDERED: ACETAMINOPHEN/HYDROcodone 325 MG/7.5 MG TAB PO PRN (20:45)
[2017-10-22] MEDS ORDERED: PRAMIPEXOLE DIHYDROCHLORIDE 0.25 MG TAB PO SCH (21:00)
[2017-10-22] MEDS ORDERED: ATORVASTATIN 40 MG TAB PO SCH (21:00)
[2017-10-22] MEDS ORDERED: DOXAZOSIN MESYLATE 4 MG TAB PO SCH (21:00)
[2017-10-22] MEDS: SERTRALINE HCL 50 MG TAB PO SCH (22:42)
[2017-10-22] MEDS: AMIODARONE 200 MG TAB PO SCH (22:42)
[2017-10-22] MEDS: APIXABAN 5 MG TABLET PO SCH (22:43)
[2017-10-22] MEDS: INSULIN DETEMIR 100 UNITS/ML VIAL SQ SCH (22:43)
[2017-10-23] VITALS (12 sets, daily range): BP systolic 129–143; BP diastolic 80–89; PULSE 58–108; RESP 20; TEMP 97.6–97.8; O2SAT 95–98
[2017-10-23] MEDS: DILTIAZEM HCL 60 MG TAB PO SCH ×2 (00:40→05:39)
[2017-10-23] MEDS ORDERED: LEVOTHYROXINE SODIUM 125 MCG TAB PO SCH (06:00)
[2017-10-23] MEDS ORDERED: AMIO200T PO ×2 (07:53)
--- NOTE | 2017-10-23 07:58 | PD.CARD.PN ---
Subjective Subjective Remarks Feels okay. Objective Medications Current Medications Medications (Trade) Dose Ordered Sig/Az Route Start Time Stop Time Status Last Admin Sodium Chloride 500 ml @ 30 mls/hr [id number] IV 10/22/17 14:30 (Ativan) 1 mg SHIP BOAT OR BARGE MATE SL 10/22/17 14:30 10/25/17 14:29 10/22/17 17:13 Lactated Ringer's 1,000 ml @ 30 mls/hr Q24H PRN IV 10/22/17 14:45 10/25/17 14:44 Sodium Chloride 500 ml @ 30 mls/hr [id number] PRN IV 10/22/17 14:45 10/25/17 14:44 (Lopressor) 25 mg SHIP BOAT OR BARGE MATE PRN PO 10/22/17 14:45 10/25/17 14:44 (Betadine 5% Antisepsis Kit) 1 applic SHIP BOAT OR BARGE MATE PRN EACH NARE 10/22/17 14:45 10/25/17 14:44 (Chlorhexidine 2% Cloth) 3 pack SHIP BOAT OR BARGE MATE PRN TOPICAL 10/22/17 14:45 10/25/17 14:44 (Percocet 5-325 Mg) 1 tab Q4H PRN PO 10/22/17 20:45 (Percocet 5-325 Mg) 2 tab Q4H PRN PO 10/22/17 20:45 (Ativan Inj) 0.5 mg UNSCH PRN IV PUSH 10/22/17 20:45 10/23/17 20:44 (Atropine Inj) 0.5 mg UNSCH PRN IV PUSH 10/22/17 20:45 Sodium Chloride 250 ml @ 500 mls/hr ONCE PRN IV 10/22/17 20:45 10/23/17 20:44 (Zofran Inj) 4 mg Q4H PRN IV PUSH 10/22/17 20:45 10/23/17 03:24 (Xylocaine 1% Inj (50 ml)) 10 ml UNSCH PRN INFIL 10/22/17 20:45 10/23/17 20:44 (Zyloprim) 100 mg DAILY PO 10/23/17 09:00 (Eliquis) 5 mg BID PO 10/22/17 21:00 10/22/17 22:43 (Lipitor) 40 mg HS PO 10/22/17 21:00 10/22/17 22:42 (Urecholine) 25 mg DAILY PO 10/23/17 09:00 (Cardizem) 60 mg Q6HR PO 10/23/17 00:00 10/23/17 05:39 (Cardura) 4 mg HS PO 10/22/17 21:00 10/22/17 22:42 ([place] 7.5-325 Mg) 1 tab Q6H PRN PO 10/22/17 20:45 (Levemir Inj) 56 units BID SQ 10/22/17 21:00 10/22/17 22:43 (Synthroid) 125 mcg DAILY@0600 PO 10/23/17 06:00 10/23/17 05:39 (Altace) 5 mg DAILY PO 10/23/17 09:00 (Zoloft) 50 mg BID PO 10/22/17 21:00 10/22/17 22:42 (Slo-Niacin) 500 mg DAILY PO 10/23/17 09:00 (Protonix) 20 mg DAILY PO 10/23/17 09:00 (Mirapex) 0.5 mg HS PO 10/22/17 21:00 10/22/17 22:42 (Cordarone) 400 mg Q12HR PO 10/22/17 21:00 10/22/17 22:42 Miscellaneous Information ALL NURSING DEPARTME... UNSCH PRN .XX 10/22/17 18:45 10/23/17 18:44 Vital Signs / I&O Vital Signs Date Time Temp Pulse Resp B/P (MAP) Pulse Ox O2 Delivery O2 Flow Rate FiO2 10/23/17 07:24 97.6 90 20 129/80 (96) 98 10/23/17 06:11 88 10/23/17 04:22 97.8 108 143/89 (107) 96 10/23/17 04:00 92 10/23/17 03:00 94 10/23/17 01:38 58 10/23/17 00:37 95 143/89 (107) 95 10/23/17 00:10 95 143/89 (107) 95 10/22/17 22:00 98.6 103 18 144/80 (101) 94 Nasal Cannula 4 10/22/17 21:45 106 21 160/89 (112) 96 Nasal Cannula 4 10/22/17 21:30 109 19 157/88 (111) 96 Simple Mask 6 10/22/17 21:26 108 18 157/85 (109) 100 Simple Mask 10 10/22/17 21:15 109 23 146/98 (114) 99 Simple Mask 10 10/22/17 21:03 98.3 100 20 134/89 (104) 90 Nasal Cannula 4 10/22/17 15:10 98.7 74 18 116/79 (91) 95 I/O 10/22/17 10/22/17 10/22/17 10/23/17 10/23/17 10/23/17 07:00 15:00 23:00 07:00 15:00 23:00 Intake Total 1800 ml 240 ml Output Total 880 ml 1650 ml Balance 920 ml -1410 ml Intake Oral 0 ml 240 ml Other 1800 ml Output Urine Total 600 ml 1650 ml Estimated Blood Loss 30 ml Other 250 ml # Bowel Movements 4 Physical Exam GENERAL: Well-nourished, well-developed patient. SKIN: Warm and dry. Groin site soft without bruising or bleeding. HEAD: Normocephalic. EYES: No scleral icterus. No injection or drainage. NECK: Supple, trachea midline. No JVD or lymphadenopathy. CARDIOVASCULAR: Regular rate and rhythm without murmurs, gallops, or rubs. RESPIRATORY: Breath sounds equal bilaterally. No accessory muscle use. GASTROINTESTINAL: Abdomen soft, non-tender, nondistended. EXTREMITIES: No cyanosis, or edema. NEUROLOGICAL: Awake, alert, and oriented x 3. Non-focal. Laboratory Laboratory Tests Test 10/22/17 14:55 White Blood Count 6.7 TH/MM3 Red Blood Count 4.20 MIL/MM3 Hemoglobin 11.7 GM/DL Hematocrit 36.2 % Mean Corpuscular Volume 86.1 FL Mean Corpuscular Hemoglobin 28.0 PG Mean Corpuscular Hemoglobin Concent 32.5 % Red Cell Distribution Width 18.2 % Platelet Count 229 TH/MM3 Mean Platelet Volume 8.4 FL Neutrophils (%) (Auto) 63.8 % Lymphocytes (%) (Auto) 21.4 % Monocytes (%) (Auto) 10.6 % Eosinophils (%) (Auto) 3.5 % Basophils (%) (Auto) 0.7 % Neutrophils # (Auto) 4.3 TH/MM3 Lymphocytes # (Auto) 1.4 TH/MM3 Monocytes # (Auto) 0.7 TH/MM3 Eosinophils # (Auto) 0.2 TH/MM3 Basophils # (Auto) 0.0 TH/MM3 CBC Comment DIFF FINAL Differential Comment Prothrombin Time 10.8 SEC Prothromb Time International Ratio 1.1 RATIO Activated Partial Thromboplast Time 24.1 SEC Blood Urea Nitrogen 39 MG/DL Creatinine 2.56 MG/DL Random Glucose 107 MG/DL Calcium Level 8.7 MG/DL Sodium Level 141 MEQ/L Potassium Level 4.8 MEQ/L Chloride Level 111 MEQ/L Carbon Dioxide Level 24.1 MEQ/L Anion Gap 6 MEQ/L Estimat Glomerular Filtration Rate 25 ML/MIN Assessment and Plan Problem List: (1) PAF (paroxysmal atrial fibrillation) ICD Codes: I48.0 - Paroxysmal atrial fibrillation Plan: Normal sinus rhythm on telemetry status post ablation. (2) S/P ablation of atrial fibrillation ICD Codes: Z98.890 - Other specified postprocedural states; Z86.79 - Personal history of other diseases of the circulatory system Plan: Groin sites soft, amiodarone initiated with a 5 day loading dose. DC home. F/U with Dr. Garcia in 3 weeks per my d/w him. Selam Kurtz Oct 23, 2017 07:58
[2017-10-23] MEDS ORDERED: GLUCAGON 1 MG/ML VIAL OTHER PRN (08:15)
[2017-10-23] MEDS ORDERED: DEXTROSE 50% IN WATER 50 ML VIAL(D50) IV PUSH PRN (08:15)
[2017-10-23] MEDS: SERTRALINE HCL 50 MG TAB PO SCH (08:21)
[2017-10-23] MEDS: AMIODARONE 200 MG TAB PO SCH (08:21)
[2017-10-23] MEDS: APIXABAN 5 MG TABLET PO SCH (08:23)
[2017-10-23] MEDS: INSULIN DETEMIR 100 UNITS/ML VIAL SQ SCH (08:30)
[2017-10-23] MEDS ORDERED: MEDIUM DOSE INSULIN NOVOLIN REGULAR SUPPLEMENTAL SCALE SQ SCH (08:30)
[2017-10-23] MEDS ORDERED: RAMIPRIL 5 MG CAP PO SCH (09:00)
[2017-10-23] MEDS ORDERED: ALLOPURINOL 100 MG TAB PO SCH (09:00)
[2017-10-23] MEDS ORDERED: NON-FORMULARY DRUG (Fish Oil-Cholecalciferol (Fish Oil + D3) 1 CAP) PO SCH (09:00)
[2017-10-23] MEDS ORDERED: BETHANECHOL CHL 25 MG TAB PO SCH (09:00)
[2017-10-23] MEDS ORDERED: NIACIN 500 MG EXTENDED RELEASE TAB PO SCH (09:00)
[2017-10-23] MEDS ORDERED: PANTOPRAZOLE SOD 20 MG DELAYED RELEASE TAB PO SCH (09:00)
--- NOTE | 2017-10-23 22:02 | EKG ---
Date Performed: 10/23/2017 Time Performed: 03:24:22 PTAGE: 72 years EKG: Sinus rhythm with borderline 1st degree A-V block Rightward axis Right bundle branch block Abnormal ECG PREVIOUS TRACING : 10/22/2017 21.40 Since previous tracing, no significant change noted DOCTOR: Ted Ha Interpretating Date/Time 10/23/2017 22:01:04
--- NOTE | 2017-10-23 22:14 | EKG ---
Date Performed: 10/22/2017 Time Performed: 21:40:56 PTAGE: 72 years EKG: SINUS TACHYCARDIA MARKED RIGHT AXIS DEVIATION RIGHT BUNDLE BRANCH BLOCK ABNORMAL ECG PREVIOUS TRACING : 10/22/2017 15.01 Since previous tracing, no significant change noted DOCTOR: Ted Ha Interpretating Date/Time 10/23/2017 22:13:07
--- NOTE | 2017-10-23 22:34 | EKG ---
Date Performed: 10/22/2017 Time Performed: 15:01:04 PTAGE: 72 years EKG: Atrial fibrillation with rapid ventricular response. Right axis deviation Right bundle bran ch block Inferior T wave changes are nonspecific Abnormal ECG PREVIOUS TRACING : 08/08/2017 02.35 Since previous tracing, no significant change noted DOCTOR: Ted Ha Interpretating Date/Time 10/23/2017 22:32:15
== END 2017-10-23 11:08 | disposition home or self-care (01) ==
LOC: HDOC 14:04 → HDIC 14:05 → HCIS 22:41 → HDOC 10-23 11:08
PROVIDERS: ATTEND Internal Medicine Interventional Cardiology
DX: I48.0 Paroxysmal atrial fibrillation (principal); I50.9 Heart failure, unspecified; I10 Essential (primary) hypertension; E78.5 Hyperlipidemia, unspecified; E11.9 Type 2 diabetes mellitus without complications; Z79.4 Long term (current) use of insulin; Z79.01 Long term (current) use of anticoagulants
CPT/HCPCS: 00537; 80048; 82948; 85002; 85025; 85610; 85730; 86850; 86900; 86901; 92960; 93005; 93312; 93320; 93325; 93613; 93623; 93656; 93662; C1730; C1731; C1732; C1759; C1766; C2630; J1644; J1956; J2250; J2405; J2720; J3010

== ENCOUNTER 2017-12-02 14:52 | Inpatient (IN) | payer OTHER, MEDICARE ==
[2017-12-02] VITALS (10 sets, daily range): BP systolic 108–130; BP diastolic 52–79; PULSE 81–132; RESP 18–28; TEMP 97.7; O2SAT 94–99
[~2017-12-02] VITALS: Ht 172.7 cm; Wt 105.3 kg
[~2017-12-02 14:52] MED LIST changes: +AMIO200T PO; -ASPI-516 CHEW; +BUSP5TAB PO; +FISHCAP4 PO; -HUMALOG SQ; +HYDR-3580 PO; +NIAC500T4 PO; +NOVOLOGP2 SQ; +TEST-25; -TRAM-388 PO; -VITA2000 PO
[2017-12-02 16:13] LABS: INTERNATIONAL NORMALIZED RATIO 1.2 RATIO; PROTHROMBIN TIME - PATIENT 11.8 SEC (9.8-11.6)
[2017-12-02] MEDS ORDERED: DILTIAZEM HCL 25 MG/5 ML VIAL IV PUSH ONE (16:30)
[2017-12-02] MEDS ORDERED: DILTIAZEM INJ 125 MG in SODIUM CHLORIDE 0.9% INJ 100 ML IV PRN (16:30)
[2017-12-02] MEDS ORDERED: NALOXONE HCL 0.4 MG/ML AMP IV PUSH PRN (18:00)
[2017-12-02] MEDS ORDERED: SODIUM CHLORIDE 0.9% FLUSH 10 ML FLUSH IV FLUSH PRN (18:00)
[2017-12-02 18:14] LABS: AUTOMATED NEUTROPHIL # 4.9 TH/MM3 (1.8-7.7); BASOPHIL % 0.4 % (0.0-2.0); EOSINOPHIL # 0.2 TH/MM3 (0-0.4); EOSINOPHIL % 2.2 % (0.0-4.0); HEMATOCRIT 34.4 % (39.0-51.0); LYMPH % 16.7 % (9.0-44.0); LYMPHOCYTE # 1.1 TH/MM3 (1.0-4.8); MEAN CELL VOLUME 83.5 FL (80.0-100.0); MEAN CORPUSCULAR HEMOGLOBIN 26.7 PG (27.0-34.0); MEAN CORPUSCULAR HGB CONC 31.9 % (32.0-36.0); MEAN PLATELET VOLUME 8.9 FL (7.0-11.0); MONO % 8.8 % (0.0-8.0); MONOCYTE # 0.6 TH/MM3 (0-0.9); NEUT % 71.9 % (16.0-70.0); PLATELET COUNT 176 TH/MM3 (150-450); RED BLOOD COUNT 4.11 MIL/MM3 (4.50-5.90); RED CELL DISTRIBUTION WIDTH 18.7 % (11.6-17.2); WHITE BLOOD COUNT 6.8 TH/MM3 (4.0-11.0)
[2017-12-02 18:33] LABS: ALBUMIN 3.4 GM/DL (3.4-5.0); ALT (GPT) 61 U/L (12-78); AST (GOT) 17 U/L (15-37); BICARBONATE 23.8 MEQ/L (21.0-32.0); BLOOD UREA NITROGEN 51 MG/DL (7-18); CALCIUM 7.9 MG/DL (8.5-10.1); CHLORIDE 110 MEQ/L (98-107); CREATININE 2.63 MG/DL (0.60-1.30); GLOMERULAR FILTRATION RATE 24 ML/MIN (>89); GLUCOSE,RANDOM 169 MG/DL (74-106); SODIUM (NA) 142 MEQ/L (136-145)
[2017-12-02 18:37] LABS: ALKALINE PHOSPHATASE 94 U/L (45-117); TOTAL BILIRUBIN ADULT 0.5 MG/DL (0.2-1.0); TOTAL PROTEIN 6.9 GM/DL (6.4-8.2); TROPONIN I 0.09 NG/ML (0.02-0.05)
--- NOTE | 2017-12-02 18:55 | PD ---
HPI Chief Complaint: Cardiac Complaint Time Seen by Provider: 15:18 Travel History International Travel<30 days: No Contact w/Intl Traveler<30days: No Traveled to known affect area: No History of Present Illness HPI 72-year-old male with a history of diabetes mellitus, atrial fibrillation, hypertension, recent cardiac ablation, presents today with complaints of shortness of breath. Patient states that in August 2017, he had an RI. At that time they did cardiac catheterization. He states that he was noted to have A. fib with RVR. He states Dr. Garcia then did a cardiac ablation in October. He states he was feeling fine up until about 10-12 days ago. He states at that time, the patient was noted to have significant shortness of breath. He states he had severe dyspnea on exertion. He denied any chest pain , chest pressure. He states he was seen by his primary care physician doctor today who sent him here for further evaluation for tachycardia and questionable congestive heart failure. PFSH Past Medical History Hx Anticoagulant Therapy: Yes Blood Disorders: No Anxiety: No Depression: Yes Heart Rhythm Problems: Yes Cancer: No Cardiac Catheterization: Yes Cardiovascular Problems: Yes High Cholesterol: Yes Chest Pain: No Cerebrovascular Accident: Yes Diabetes: Yes Patient Takes Glucophage: No Diminished Hearing: Yes ([place] Endocrine: Yes Gastrointestinal Disorders: No GERD: Yes Glaucoma: No Genitourinary: No (Claims to have kidney issues - not a good historion , can't remember ) Hepatitis: No Hiatal Hernia: No Hypertension: Yes Immune Disorder: No Implanted Vascular Access Dvce: No Musculoskeletal: No Neurologic: No Psychiatric: Yes Reproductive: No Respiratory: Yes (sleep apena) Integumentary: No Myocardial Infarction: Yes Shingles: Yes Thyroid Disease: Yes Past Surgical History Abdominal Surgery: Yes Cholecystectomy: Yes Eye Surgery: Yes (L CATARACT) Genitourinary Surgery: Yes Other Surgery: Yes Social History Alcohol Use: No Tobacco Use: No Substance Use: No Allergies-Medications (Allergen,Severity, Reaction): Coded Allergies: penicillin G (Unverified Allergy, Severe, Hives, 12/02/17) *MDRO Multi-Drug Resistant Organism (Unverified Allergy, Unknown, 12/02/17) MRSA 2010, 2013 Reported Meds & Prescriptions Reported Meds & Active Scripts Active Amiodarone (Amiodarone HCl) 200 Mg Tab 200 Mg PO DAILY Amiodarone (Amiodarone HCl) 200 Mg Tab 400 Mg PO Q12HR Cardizem (Diltiazem HCl) 60 Mg Tab 60 Mg PO Q6HR Eliquis (Apixaban) 5 Mg Tab 5 Mg PO BID Reported Buspirone (Buspirone HCl) 5 Mg Tab Unknown Dose PO TID Niacinamide 500 Mg Tab 500 Mg PO DAILY Novolog Inj (Insulin Aspart) 1,000 Unit/10 Ml Vial 0 SQ DIRECTED Sliding Scale as directed. Hydrocodone-Acetaminophen 7.5 Mg-325 Mg Tab 1 Tab PO Q6H PRN [Testosterone] Fish Oil + D3 (Fish Oil-Cholecalciferol) 1,200-1,000 Mg-Unit Cap 1 Cap PO DAILY Pramipexole (Pramipexole Dihydrochloride) 0.5 Mg Tab 0.5 Mg PO HS Atorvastatin (Atorvastatin Calcium) 40 Mg Tab 40 Mg PO HS Sertraline (Sertraline HCl) 50 Mg Tab 50 Mg PO BID Prilosec (Omeprazole Magnesium) 20 Mg Tab 20 Mg PO DAILY Levothyroxine (Levothyroxine Sodium) 125 Mcg Tab 125 Mcg PO DAILY Bethanechol 25 Mg Tab 25 Mg PO DAILY Doxazosin (Doxazosin Mesylate) 4 Mg Tab 4 Mg PO HS Allopurinol 100 Mg Tab 100 Mg PO DAILY Ramipril 5 Mg Cap 5 Mg PO DAILY Lantus Inj (Insulin Glargine) 1,000 Unit/10 Ml Vial 56 Units SQ BID Review of Systems Except as stated in HPI: all other systems reviewed are Neg General / Constitutional: No: Fever HENT: No: Headaches, Vertigo, Lightheadedness Cardiovascular: Positive: Palpitations, Tachycardia, No: Chest Pain or Discomfort Respiratory: Positive: Shortness of Breath, No: Orthopnea, Pleuritic Pain Gastrointestinal: No: Nausea, Vomiting, Abdominal Pain Genitourinary: No: Urgency, Frequency, Hematuria Musculoskeletal: Positive: Weakness (On exertion), No: Edema, Pain Neurologic: Positive: Weakness (On exertion), No: Dizziness, Syncope, Headache Physical Exam Narrative GENERAL: Well-developed well-nourished male in mild respiratory discomfort. SKIN: Focused skin assessment warm/dry. HEAD: Atraumatic. Normocephalic. EYES:. No scleral icterus. No injection or drainage. ENT: No nasal bleeding or discharge. Mucous membranes pink and moist. NECK: Trachea midline. Supple. CARDIOVASCULAR: Tachycardic with a rate from the low 100s to the 140s. On monitor, he is going in and out of atrial fibrillation. RESPIRATORY: Fine rales heard at the mid lung hernández bilaterally. No rhonchi. GASTROINTESTINAL: Abdomen soft, non-tender, obese, nondistended. MUSCULOSKELETAL: No obvious deformities. No clubbing. No cyanosis. Trace pretibial edema. NEUROLOGICAL: Awake and alert. No obvious cranial nerve deficits. Motor grossly within normal limits. Normal speech. PSYCHIATRIC: Appropriate mood and affect; insight and judgment normal. Data Data Last Documented VS Vital Signs Date Time Temp Pulse Resp B/P (MAP) Pulse Ox O2 Delivery O2 Flow Rate FiO2 12/02/17 18:30 81 18 122/68 (86) 96 Room Air 12/02/17 18:18 21 12/02/17 15:02 97.7 Orders Orders Prothrombin Time / Inr (Pt) (12/02/17 15:49) Act Partial Throm Time (Ptt) (12/02/17 15:49) Diltiazem Inj (Cardizem Inj) (12/02/17 16:30) Diltiazem Inj (Cardizem Inj) (12/02/17 16:30) Electrocardiogram (12/02/17 15:14) Complete Blood Count With Diff (12/02/17 17:58) Comprehensive Metabolic Panel (12/02/17 17:58) Ckmb (Isoenzyme) Profile (12/02/17 17:58) Troponin I (12/02/17 17:58) Chest, Single Ap (12/02/17 17:58) Admit To Inpatient (12/02/17 ) Vital Signs (Adult) Q4H (12/02/17 17:58) Activity Oob With Assistance (12/02/17 17:58) Auto Seat Cover Installer / Telemetry .CONTINUOUS (12/02/17 17:58) Diet Heart Healthy (12/02/17 Dinner) Sodium Chloride 0.9% Flush (Ns Flush) (12/02/17 18:00) Sodium Chloride 0.9% Flush (Ns Flush) (12/02/17 21:00) Basic Metabolic Panel (Bmp) (12/03/17 06:00) Complete Blood Count With Diff (12/03/17 06:00) Creatine Kinase (Cpk) (12/02/17 23:58) Electrocardiogram (12/02/17 17:58) Electrocardiogram (12/02/17 23:58) Resp Oxygen Meng C Titrat 1-4 L (12/02/17 ) Pt Request For Service (12/02/17 17:58) Case Management Consult (12/02/17 17:58) Naloxone Inj (Narcan Inj) (12/02/17 18:00) Inpatient Certification (12/02/17 ) Admit Order (Ed Use Only) (12/02/17 18:38) Labs Laboratory Tests Test 12/02/17 15:20 White Blood Count 6.8 TH/MM3 Red Blood Count 4.11 MIL/MM3 Hemoglobin 11.0 GM/DL Hematocrit 34.4 % Mean Corpuscular Volume 83.5 FL Mean Corpuscular Hemoglobin 26.7 PG Mean Corpuscular Hemoglobin Concent 31.9 % Red Cell Distribution Width 18.7 % Platelet Count 176 TH/MM3 Mean Platelet Volume 8.9 FL Neutrophils (%) (Auto) 71.9 % Lymphocytes (%) (Auto) 16.7 % Monocytes (%) (Auto) 8.8 % Eosinophils (%) (Auto) 2.2 % Basophils (%) (Auto) 0.4 % Neutrophils # (Auto) 4.9 TH/MM3 Lymphocytes # (Auto) 1.1 TH/MM3 Monocytes # (Auto) 0.6 TH/MM3 Eosinophils # (Auto) 0.2 TH/MM3 Basophils # (Auto) 0.0 TH/MM3 CBC Comment DIFF FINAL Differential Comment Prothrombin Time 11.8 SEC Prothromb Time International Ratio 1.2 RATIO Activated Partial Thromboplast Time 26.8 SEC Blood Urea Nitrogen 51 MG/DL Creatinine 2.63 MG/DL Random Glucose 169 MG/DL Total Protein 6.9 GM/DL Albumin 3.4 GM/DL Calcium Level 7.9 MG/DL Alkaline Phosphatase 94 U/L Aspartate Amino Transf (AST/SGOT) 17 U/L Alanine Aminotransferase (ALT/SGPT) 61 U/L Total Bilirubin 0.5 MG/DL Sodium Level 142 MEQ/L Potassium Level 4.2 MEQ/L Chloride Level 110 MEQ/L Carbon Dioxide Level 23.8 MEQ/L Anion Gap 8 MEQ/L Estimat Glomerular Filtration Rate 24 ML/MIN Total Creatine Kinase 99 U/L Troponin I 0.09 NG/ML MDM Medical Decision Making Medical Screen Exam Complete: Yes Emergency Medical Condition: Yes Differential Diagnosis A. fib with RVR versus CHF versus pneumonia Narrative Course 72-year-old male with a history of A. fib, hypertension, diabetes mellitus, presents today with shortness of breath. Patient was seen by his primary care doctor murphy. Patient's heart rate goes from the 120s-140s. His been started on a diltiazem drip. His troponin is slightly elevated which is probably secondary to his A. fib with RVR. The patient is chest pain-free. Chest x-ray shows cardiomegaly with no florid failure. He will be admitted to the hospital and continued on the Cardizem drip. Case was discussed with Dr. Carmona, [facility], who agrees to the admission. Diagnosis Primary Impression: Paroxysmal atrial fibrillation with RVR Additional Impressions: Elevated troponin Chronic kidney disease, stage III (moderate) S/P ablation of atrial fibrillation Diabetes mellitus Admitting Information Admitting Physician Requests: Admit Justin Gutierrez MD Dec 02, 2017 18:55
--- NOTE | 2017-12-02 19:00 | RADRPT ---
EXAM DATE/TIME: 12/02/2017 18:30 [facility] COMPARISON: CHEST SINGLE AP, August 07, 2017, 14:39. INDICATIONS : Short of breath. MEDICAL HISTORY : Diabetes mellitus type 2. Hypertension. Congestive heart failure. SURGICAL HISTORY : Cholecystectomy. Ablation. ENCOUNTER: Initial ACUITY: 1 day PAIN SCORE: 0/10 LOCATION: Bilateral chest FINDINGS: The cardiac silhouette is enlarged in transverse diameter. The lungs are free of acute parenchymal op acity. No effusions are identified. Osseous structures are intact. CONCLUSION: Cardiomegaly. No acute cardiopulmonary disease. Mario Hooker MD on December 02, 2017 at 18:59 Board Certified Radiologist. This report was verified electronically.
--- NOTE | 2017-12-02 20:45 | HHI.HP ---
HPI Service [facility] Primary Care Physician Julian Hartman MD Admission Diagnosis afib with rvr, dyspnea, dm, htn. Diagnoses: Chief Complaint: Shortness of breath Travel History International Travel<30 Days: No Contact w/Intl Traveler <30 Da: No Traveled to Known Affected Are: No History of Present Illness 72-year-old male with a medical history significant for diabetes, hypertension, atrial fibrillation status post ablation presented to the emergency room with complaint of shortness of breath. Patient is a poor historian and deferred to his environmental compliance inspector for the history. Apparently for the past 10 days, he has been experiencing significant shortness of breath with minimal activity. He reports that he has been having occasional episodes of nosebleed. He denies any chest pain. His environmental compliance inspector states he appears to be fine at rest but with any activities, he gets severely short of breath. Patient was seen by his primary care physician today who sent him to the emergency room for uncontrolled heart rate. Review of Systems Constitutional: DENIES: Fever, Chills Respiratory: COMPLAINS OF: Shortness of breath Cardiovascular: COMPLAINS OF: Dyspnea on Exertion, DENIES: Chest pain, Palpitations, Lower Extremity Edema Gastrointestinal: DENIES: Abdominal pain, Black stools Genitourinary: DENIES: Dysuria Musculoskeletal: COMPLAINS OF: Joint pain, Neck pain Except as stated in HPI: all other systems reviewed are Neg Past Family Social History Past Medical History Hypertension Type 2 diabetes Atrial fibrillation status post ablation on 11/10/17 Sleep apnea Chronic kidney disease TIA Hypothyroidism Past Surgical History Cholecystectomy Reported Medications Reported Meds & Active Scripts Active Amiodarone (Amiodarone HCl) 200 Mg Tab 200 Mg PO DAILY Amiodarone (Amiodarone HCl) 200 Mg Tab 400 Mg PO Q12HR Cardizem (Diltiazem HCl) 60 Mg Tab 60 Mg PO Q6HR Eliquis (Apixaban) 5 Mg Tab 5 Mg PO BID Reported Buspirone (Buspirone HCl) 5 Mg Tab Unknown Dose PO TID Niacinamide 500 Mg Tab 500 Mg PO DAILY Novolog Inj (Insulin Aspart) 1,000 Unit/10 Ml Vial 0 SQ DIRECTED Sliding Scale as directed. Hydrocodone-Acetaminophen 7.5 Mg-325 Mg Tab 1 Tab PO Q6H PRN [Testosterone] Fish Oil + D3 (Fish Oil-Cholecalciferol) 1,200-1,000 Mg-Unit Cap 1 Cap PO DAILY Pramipexole (Pramipexole Dihydrochloride) 0.5 Mg Tab 0.5 Mg PO HS Atorvastatin (Atorvastatin Calcium) 40 Mg Tab 40 Mg PO HS Sertraline (Sertraline HCl) 50 Mg Tab 50 Mg PO BID Prilosec (Omeprazole Magnesium) 20 Mg Tab 20 Mg PO DAILY Levothyroxine (Levothyroxine Sodium) 125 Mcg Tab 125 Mcg PO DAILY Bethanechol 25 Mg Tab 25 Mg PO DAILY Doxazosin (Doxazosin Mesylate) 4 Mg Tab 4 Mg PO HS Allopurinol 100 Mg Tab 100 Mg PO DAILY Ramipril 5 Mg Cap 5 Mg PO DAILY Lantus Inj (Insulin Glargine) 1,000 Unit/10 Ml Vial 56 Units SQ BID Allergies: Coded Allergies: penicillin G (Unverified Allergy, Severe, Hives, 12/02/17) *MDRO Multi-Drug Resistant Organism (Unverified Allergy, Unknown, 12/02/17) MRSA 2010, 2013 Family History Reviewed and is found to be noncontributory. Social History No tobacco, alcohol, or illicit drug use. He has a caregiver named Corinna. Per the caregiver they both do not sleep much at night and he takes naps during the day. Physical Exam Vital Signs Vital Signs Date Time Temp Pulse Resp B/P (MAP) Pulse Ox O2 Delivery O2 Flow Rate FiO2 12/02/17 18:30 81 18 122/68 (86) 96 Room Air 12/02/17 18:18 96 21 12/02/17 17:44 88 112/68 12/02/17 17:30 87 18 112/67 (82) 94 Room Air 12/02/17 16:00 115 18 130/79 (96) 96 Room Air 12/02/17 15:15 133 20 99 Room Air 12/02/17 15:02 97.7 132 28 117/60 (79) 97 12/02/17 15:00 123 18 110/73 (85) 96 Room Air Physical Exam GENERAL: Obese male in no acute distress. SKIN: No rashes, ecchymoses or lesions. Cool and dry. HEAD: Atraumatic. Normocephalic. No temporal or scalp tenderness. EYES: Pupils equal round and reactive. Extraocular motions intact. No scleral icterus. No injection or drainage. ENT: Nose without bleeding, purulent drainage or septal hematoma. Throat without erythema, tonsillar hypertrophy or exudate. Uvula midline. Airway patent. NECK: Trachea midline. No JVD or lymphadenopathy. Supple, nontender, no meningeal signs. CARDIOVASCULAR: Rate around 95 and irregular rhythm. No appreciable murmurs. Trace bilateral lower extremity edema RESPIRATORY: Clear to auscultation. Breath sounds equal bilaterally. No wheezes , rales, or rhonchi. GASTROINTESTINAL: Abdomen soft, non-tender, nondistended. No hepato-splenomegaly , or palpable masses. No guarding. MUSCULOSKELETAL: No calf tenderness. Negative Homans sign bilaterally. NEUROLOGICAL: Awake and alert. Cranial nerves II through XII intact. Motor and sensory grossly within normal limits. Five out of 5 muscle strength in all muscle groups. Normal speech. Laboratory Laboratory Tests Test 12/02/17 15:20 White Blood Count 6.8 Red Blood Count 4.11 Hemoglobin 11.0 Hematocrit 34.4 Mean Corpuscular Volume 83.5 Mean Corpuscular Hemoglobin 26.7 Mean Corpuscular Hemoglobin Concent 31.9 Red Cell Distribution Width 18.7 Platelet Count 176 Mean Platelet Volume 8.9 Neutrophils (%) (Auto) 71.9 Lymphocytes (%) (Auto) 16.7 Monocytes (%) (Auto) 8.8 Eosinophils (%) (Auto) 2.2 Basophils (%) (Auto) 0.4 Neutrophils # (Auto) 4.9 Lymphocytes # (Auto) 1.1 Monocytes # (Auto) 0.6 Eosinophils # (Auto) 0.2 Basophils # (Auto) 0.0 CBC Comment DIFF FINAL Differential Comment Prothrombin Time 11.8 Prothromb Time International Ratio 1.2 Activated Partial Thromboplast Time 26.8 Blood Urea Nitrogen 51 Creatinine 2.63 Random Glucose 169 Total Protein 6.9 Albumin 3.4 Calcium Level 7.9 Alkaline Phosphatase 94 Aspartate Amino Transf (AST/SGOT) 17 Alanine Aminotransferase (ALT/SGPT) 61 Total Bilirubin 0.5 Sodium Level 142 Potassium Level 4.2 Chloride Level 110 Carbon Dioxide Level 23.8 Anion Gap 8 Estimat Glomerular Filtration Rate 24 Total Creatine Kinase 99 Troponin I 0.09 B-Type Natriuretic Peptide 665 Result Diagram: 12/02/17 1520 12/02/17 1520 Caprini VTE Risk Assessment Caprini VTE Risk Assessment: Mod/High Risk (score >= 2) Caprini Risk Assessment Model Point Value = 1 Point Value = 2 Point Value = 3 Point Value = 5 Age 41-60 Minor surgery BMI > 25 kg/m2 Swollen legs Varicose veins or History of unexplained or recurrent spontaneous Oral contraceptives or hormone replacement Sepsis (< 1 month) Serious lung disease, including pneumonia (< 1 month) Abnormal pulmonary function Acute myocardial infarction Congestive heart failure (< 1 month) History of inflammatory bowel disease Medical patient at bed rest Age 61-74 Arthroscopic surgery Major open surgery (> 45 min) Laparoscopic surgery (> 45 min) Malignancy Confined to bed (> 72 hours) Immobilizing plaster cast Central venous access Age >= 75 History of VTE Family history of VTE Factor V Leiden Prothrombin [id number] Lupus anticoagulant Anticardiolipin antibodies Elevated serum homocysteine Heparin-induced thrombocytopenia Other congenital or acquired thrombophilia Stroke (< 1 month) Elective arthroplasty Hip, pelvis, or leg fracture Acute spinal cord injury (< 1 month) Prophylaxis Regimen Total Risk Factor Score Risk Level Prophylaxis Regimen 0-1 Low Early ambulation 2 Moderate Order ONE of the following: *Sequential Compression Device (SCD) *Heparin 5000 units SQ BID 3-4 Higher Order ONE of the following medications: *Heparin 5000 units SQ TID *Enoxaparin/Lovenox 40 mg SQ daily (WT < 150 kg, CrCl > 30 mL/min) *Enoxaparin/Lovenox 30 mg SQ daily (WT < 150 kg, CrCl > 10-29 mL/min) *Enoxaparin/Lovenox 30 mg SQ BID (WT < 150 kg, CrCl > 30 mL/min) AND/OR *Sequential Compression Device (SCD) 5 or more Highest Order ONE of the following medications: *Heparin 5000 units SQ TID (Preferred with Epidurals) *Enoxaparin/Lovenox 40 mg SQ daily (WT < 150 kg, CrCl > 30 mL/min) *Enoxaparin/Lovenox 30 mg SQ daily (WT < 150 kg, CrCl > 10-29 mL/min) *Enoxaparin/Lovenox 30 mg SQ BID (WT < 150 kg, CrCl > 30 mL/min) AND *Sequential Compression Device (SCD) Assessment and Plan Problem List: (1) Paroxysmal atrial fibrillation with RVR ICD Code: I48.0 - Paroxysmal atrial fibrillation Status: Acute Plan: Patient started on Cardizem drip. Continue the same. Check TSH Resume oral Cardizem and amiodarone. Wean off Cardizem drip as tolerated Consult envelope cutter, Dr. Garcia (2) Chronic kidney disease, stage III (moderate) ICD Code: N18.3 - Chronic kidney disease, stage III (moderate) Status: Acute Plan: Renal function slightly worse. Likely cardiorenal secondary to A. fib with RVR as above. Monitor. Avoid nephrotoxins. (3) Diabetes ICD Code: E11.9 - Diabetes Status: Acute Plan: Sliding scale insulin with Accu-Cheks (4) Hypertension ICD Code: I10 - Hypertension Status: Acute Plan: Continue home dose hypertensives. (5) Hypothyroid ICD Code: E03.9 - Hypothyroidism, unspecified Plan: Continue levothyroxine. Check TSH Discussed Condition With patient and caregiver at bedside. Case management consult. May need HH to ensure medication compliance. Physician Certification 2 Midnight Certification Type: Admission for Inpatient Services Order for Inpatient Services The services are ordered in accordance with Medicare regulations or non- Medicare payer requirements, as applicable. In the case of services not specified as inpatient-only, they are appropriately provided as inpatient services in accordance with the 2-midnight benchmark. Estimated LOS (days): 3 days is the estimated time the patient will need to remain in the hospital, assuming treatment plan goals are met and no additional complications. Post-Hospital Plan: Not yet determined Maynor Combs MD Dec 02, 2017 20:45
[2017-12-02] MEDS ORDERED: GLUCAGON 1 MG/ML VIAL OTHER PRN (21:15)
[2017-12-02] MEDS ORDERED: DEXTROSE 50% IN WATER 50 ML VIAL(D50) IV PUSH PRN (21:15)
[2017-12-02] MEDS: DILTIAZEM HCL 60 MG TAB PO SCH (23:37)
[2017-12-02] MEDS: SODIUM CHLORIDE 0.9% FLUSH 10 ML FLUSH IV FLUSH SCH (23:38)
[2017-12-03] VITALS (30 sets, daily range): BP systolic 86–120; BP diastolic 44–76; PULSE 43–132; RESP 20–24; TEMP 97.7–98; O2SAT 95–100
[2017-12-03] MEDS: PRAMIPEXOLE DIHYDROCHLORIDE 0.25 MG TAB PO SCH ×2 (03:46→19:59)
[2017-12-03 06:38] LABS: AUTOMATED NEUTROPHIL # 4.8 TH/MM3 (1.8-7.7); BASOPHIL % 0.7 % (0.0-2.0); EOSINOPHIL # 0.2 TH/MM3 (0-0.4); EOSINOPHIL % 2.4 % (0.0-4.0); HEMATOCRIT 32.9 % (39.0-51.0); HEMOGLOBIN 10.5 GM/DL (13.0-17.0); LYMPH % 18.4 % (9.0-44.0); LYMPHOCYTE # 1.3 TH/MM3 (1.0-4.8); MEAN CELL VOLUME 83.7 FL (80.0-100.0); MEAN CORPUSCULAR HEMOGLOBIN 26.6 PG (27.0-34.0); MEAN CORPUSCULAR HGB CONC 31.8 % (32.0-36.0); MEAN PLATELET VOLUME 8.7 FL (7.0-11.0); MONO % 8.3 % (0.0-8.0); MONOCYTE # 0.6 TH/MM3 (0-0.9); NEUT % 70.2 % (16.0-70.0); PLATELET COUNT 171 TH/MM3 (150-450); RED BLOOD COUNT 3.93 MIL/MM3 (4.50-5.90); RED CELL DISTRIBUTION WIDTH 18.5 % (11.6-17.2); WHITE BLOOD COUNT 6.9 TH/MM3 (4.0-11.0)
[2017-12-03] MEDS: LEVOTHYROXINE SODIUM 125 MCG TAB PO SCH (06:52)
[2017-12-03] MEDS: DILTIAZEM HCL 60 MG TAB PO SCH (06:53)
[2017-12-03 06:58] LABS: BICARBONATE 21.3 MEQ/L (21.0-32.0); CALCIUM 8.1 MG/DL (8.5-10.1); CREATININE 2.61 MG/DL (0.60-1.30)
[2017-12-03] MEDS: INSULIN ASPART SUPPLEMENTAL SCALE SQ SCH ×4 (08:00→20:00)
[2017-12-03] MEDS: APIXABAN 5 MG TABLET PO SCH ×2 (08:57→19:59)
[2017-12-03] MEDS: AMIODARONE 200 MG TAB PO SCH (08:58)
[2017-12-03] MEDS: PANTOPRAZOLE SOD 20 MG DELAYED RELEASE TAB PO SCH (08:58)
[2017-12-03] MEDS: ALLOPURINOL 100 MG TAB PO SCH (08:58)
[2017-12-03] MEDS: INSULIN DETEMIR 100 UNITS/ML VIAL SQ SCH ×2 (09:05→19:59)
[2017-12-03] MEDS: SODIUM CHLORIDE 0.9% FLUSH 10 ML FLUSH IV FLUSH SCH ×2 (09:08→20:01)
--- NOTE | 2017-12-03 11:39 | EKG ---
Date Performed: 12/02/2017 Time Performed: 21:24:14 PTAGE: 72 years EKG: ATRIAL FLUTTER/TACHYCARDIA RIGHT BUNDLE BRANCH BLOCK LEFT POSTERIOR FASCICULAR BLOCK ABNORM AL ECG PREVIOUS TRACING : 12/02/2017 15.14 Since the prior tracing, there has been no significant haji DOCTOR: Mario López Interpretating Date/Time 12/03/2017 11:37:05
--- NOTE | 2017-12-03 11:45 | EKG ---
Date Performed: 12/02/2017 Time Performed: 15:14:49 PTAGE: 72 years EKG: SINUS TACHYCARDIA RIGHT BUNDLE BRANCH BLOCK LEFT POSTERIOR FASCICULAR BLOCK ABNORMAL ECG PREVIOUS TRACING : 10/23/2017 03.24 Compared to prior tracing, atrial flutter has replaced Sin us rhythm . DOCTOR: Mario López Interpretating Date/Time 12/03/2017 11:44:22
[2017-12-03] MEDS ORDERED: METOPROLOL TARTRATE 5 MG/5 ML VIAL IV PUSH PRN (12:30)
[2017-12-03] MEDS ORDERED: METOPROLOL TARTRATE 50 MG TAB PO ONE (12:30)
--- NOTE | 2017-12-03 12:31 | HHI.PR ---
Subjective Remarks Patient says she is feeling all right. Denies any chest pain. He reports chronic shortness of breath. Discussed with nursing. Systolic blood pressures in the 70s when sitting up today. Improved with lying down. Objective Vital Signs Date Time Temp Pulse Resp B/P (MAP) Pulse Ox O2 Delivery O2 Flow Rate FiO2 12/03/17 10:45 97 86/69 (75) 12/03/17 10:29 106 105/76 (86) 12/03/17 10:20 112 92/62 (72) 12/03/17 08:50 97.7 85 20 104/55 (71) 99 12/03/17 08:00 114 12/03/17 04:00 104 12/03/17 04:00 104 12/03/17 04:00 97 20 104/67 (79) 98 12/03/17 03:00 104 12/03/17 02:00 96 12/03/17 01:00 88 12/03/17 00:00 43 20 100 12/03/17 00:00 88 12/02/17 23:00 88 12/02/17 22:59 12/02/17 22:51 93 12/02/17 22:50 88 22 109/77 (88) 99 12/02/17 21:00 87 24 108/52 (70) 99 Room Air 12/02/17 18:30 81 18 122/68 (86) 96 Room Air 12/02/17 18:18 96 21 12/02/17 17:44 88 112/68 12/02/17 17:30 87 18 112/67 (82) 94 Room Air 12/02/17 16:00 115 18 130/79 (96) 96 Room Air 12/02/17 15:15 133 20 99 Room Air 12/02/17 15:02 97.7 132 28 117/60 (79) 97 12/02/17 15:00 123 18 110/73 (85) 96 Room Air I/O 12/02/17 12/02/17 12/02/17 12/03/17 12/03/17 12/03/17 07:00 15:00 23:00 07:00 15:00 23:00 Output Total 200 ml Balance -200 ml Output Urine Total 200 ml Result Diagram: 12/03/17 0608 12/03/17 06 Objective Remarks GENERAL: Patient sitting up in bed eating breakfast. Appears comfortable. SKIN: Warm and dry. HEAD: Normocephalic. EYES: No scleral icterus. No injection or drainage. NECK: Supple, trachea midline. No JVD. CARDIOVASCULAR: Irregularly irregular rhythm with tachycardia. Without murmurs , gallops, or rubs. RESPIRATORY: Breath sounds equal bilaterally. No accessory muscle use. GASTROINTESTINAL: Abdomen soft, non-tender, nondistended. MUSCULOSKELETAL: No cyanosis, or edema. BACK: Nontender without obvious deformity. No CVA tenderness. A/P Assessment and Plan ==12/03/17 Cannot continue diltiazem with hypotension. Will discontinue diltiazem. Switch to metoprolol. Cardiology consult placed. //Paroxysmal atrial fibrillation with RVR Plan: Patient started on Cardizem drip. Continue the same. Check TSH Resume oral Cardizem and amiodarone. Wean off Cardizem drip as tolerated Consult assistant accounting manager, Dr. Garcia =12/03 Consult placed to cardiology. Switch to metoprolol due to hypotension. Continue to monitor on CIC. //Chronic kidney disease, stage III (moderate) ICD Code: N18.3 - Chronic kidney disease, stage III (moderate) Status: Acute Plan: Renal function slightly worse. Likely cardiorenal secondary to A. fib with RVR as above. Monitor. Avoid nephrotoxins. = 12/03Creatinine stable. Continue to monitor. //Diabetes ICD Code: E11.9 - Diabetes Status: Acute Plan: Sliding scale insulin with Accu-Cheks = Blood sugars controlled. Continue to monitor. //Hypertension ICD Code: I10 - Hypertension Status: Acute Plan: Continue home dose hypertensives. //Hypothyroid ICD Code: E03.9 - Hypothyroidism, unspecified Plan: Continue levothyroxine. Check TSH = TSH within normal limits. Continue home levothyroxine. Discharge Planning Low blood pressures with diltiazem. Will switch to metoprolol. Cardiology consult pending. Case management following. Will likely need home health nursing for medication management at home. Kulwinder Salcedo MD Dec 03, 2017 12:31
[2017-12-03] MEDS: RESP: IPRATROPIUM 0.5 MG/2.5 ML NEB NEB SCH ×2 (16:16→20:53)
[2017-12-03] MEDS ORDERED: METOPROLOL TARTRATE 50 MG TAB PO SCH (21:00)
[2017-12-04] VITALS (24 sets, daily range): BP systolic 91–160; BP diastolic 64–99; PULSE 80–119; RESP 18–24; TEMP 96.8–98.1; O2SAT 95–99
[2017-12-04] MEDS ORDERED: RESP: ALBUTEROL 2.5 MG/IPRATROPIUM 0.5 MG NEB (SCH) NEB ONE
[2017-12-04] MEDS: RESP: IPRATROPIUM 0.5 MG/2.5 ML NEB NEB SCH ×4 (03:22→21:28)
[2017-12-04] MEDS: LEVOTHYROXINE SODIUM 125 MCG TAB PO SCH (04:25)
[2017-12-04] MEDS ORDERED: FUROSEMIDE 20 MG/2 ML VIAL IV PUSH SCH (07:00)
[2017-12-04] MEDS ORDERED: FUROSEMIDE 20 MG/2 ML VIAL IV ONE (07:00)
[2017-12-04] MEDS: INSULIN ASPART SUPPLEMENTAL SCALE SQ SCH ×4 (08:00→21:00)
--- NOTE | 2017-12-04 08:14 | PD.CARD.PN ---
Subjective Subjective Remarks Feeling better, remained short of breath. Objective Medications Current Medications Medications (Trade) Dose Ordered Sig/Az Route Start Time Stop Time Status Last Admin (NS Flush) 2 ml UNSCH PRN IV FLUSH 12/02/17 18:00 (NS Flush) 2 ml BID IV FLUSH 12/02/17 21:00 12/03/17 20:01 (Narcan Inj) 0.4 mg UNSCH PRN IV PUSH 12/02/17 18:00 (Zyloprim) 100 mg DAILY PO 12/03/17 09:00 12/03/17 08:58 (Cordarone) 200 mg DAILY PO 12/03/17 09:00 12/03/17 08:58 (Synthroid) 125 mcg DAILY@0600 PO 12/03/17 06:00 12/04/17 04:25 (Protonix) 20 mg DAILY PO 12/03/17 09:00 12/03/17 08:58 (Mirapex) 0.5 mg HS PO 12/02/17 21:30 12/03/17 19:59 (D50w (Vial) Inj) 50 ml UNSCH PRN IV PUSH 12/02/17 21:15 (Glucagon Inj) 1 mg UNSCH PRN OTHER 12/02/17 21:15 (NovoLOG SUPPLEMENTAL SCALE) 1 ACHS SLIDING SCALE SQ 12/03/17 08:00 12/03/17 20:00 (Levemir Inj) 15 units Q12HR SQ 12/03/17 09:00 12/03/17 19:59 (Eliquis) 5 mg BID PO 12/03/17 09:00 12/03/17 19:59 (Atrovent Neb) 0.5 mg Q6HR NEB NEB 12/03/17 16:00 12/04/17 03:22 (Lopressor Inj) 5 mg Q5M PRN IV PUSH 12/03/17 12:30 12/04/17 06:04 (Cardizem Cd) 240 mg DAILY PO 12/04/17 09:00 (Lasix Inj) 20 mg NOW IV PUSH 12/04/17 07:00 12/04/17 09:00 12/04/17 06:52 Vital Signs / I&O Vital Signs Date Time Temp Pulse Resp B/P (MAP) Pulse Ox O2 Delivery O2 Flow Rate FiO2 12/04/17 06:45 137/96 (110) 12/04/17 06:00 118 12/04/17 05:00 116 12/04/17 04:00 115 12/04/17 04:00 98.0 105 24 133/75 (94) 96 12/04/17 03:00 104 12/04/17 02:00 90 12/04/17 01:20 95 21 12/04/17 01:00 96 12/04/17 00:00 97.0 80 24 119/64 (82) 99 12/04/17 00:00 84 12/03/17 23:00 78 12/03/17 22:00 80 12/03/17 21:00 80 12/03/17 20:53 99 Nasal Cannula 2.00 12/03/17 20:00 98.0 102 22 120/70 (87) 98 12/03/17 20:00 82 12/03/17 19:50 99 Nasal Cannula 2.00 12/03/17 19:00 98 12/03/17 18:00 92 12/03/17 17:00 116 12/03/17 16:48 97.8 132 22 108/72 (84) 95 12/03/17 16:19 98 Nasal Cannula 2.00 12/03/17 16:00 112 12/03/17 15:01 112 24 100/68 (79) 97 12/03/17 15:00 114 12/03/17 14:00 110 12/03/17 13:14 97.9 94 20 94/44 (61) 95 12/03/17 13:00 100 12/03/17 12:00 101 12/03/17 10:45 97 86/69 (75) 12/03/17 10:29 106 105/76 (86) 12/03/17 10:20 112 92/62 (72) 12/03/17 10:00 94 12/03/17 09:00 106 12/03/17 08:50 97.7 85 20 104/55 (71) 99 I/O 12/03/17 12/03/17 12/03/17 12/04/17 12/04/17 12/04/17 07:00 15:00 23:00 07:00 15:00 23:00 Intake Total 1080 ml Output Total 200 ml 300 ml Balance -200 ml 780 ml Intake Oral 1080 ml Output Urine Total 200 ml 300 ml # Bowel Movements 1 Physical Exam GENERAL: Well-nourished, well-developed patient. SKIN: Warm and dry. HEAD: Normocephalic. EYES: No scleral icterus. No injection or drainage. NECK: Supple, trachea midline. No JVD or lymphadenopathy. CARDIOVASCULAR: Irregular rhythm, mildly tachycardic rate, no rub murmur or gallop. RESPIRATORY: Breath sounds equal, diminished bilaterally. No accessory muscle use. GASTROINTESTINAL: Abdomen soft, non-tender, nondistended. EXTREMITIES: No cyanosis, or edema. NEUROLOGICAL: Awake, alert. Non-focal. Laboratory Laboratory Tests Test 12/04/17 00:29 Blood Gas Puncture Site RT RADIAL Blood Gas Patient Temperature 98.6 Blood Gas HCO3 19 mmol/L Blood Gas Base Excess -5.2 mmol/L Blood Gas Oxygen Saturation 95 % Arterial Blood pH 7.36 Arterial Blood Partial Pressure CO2 35 mmHg Arterial Blood Partial Pressure O2 97 mmHg Arterial Blood Oxygen Content 15.1 Vol % Arterial Blood Carboxyhemoglobin 1.1 % Arterial Blood Methemoglobin 0.9 % Blood Gas Hemoglobin 11.2 G/DL Oxygen Delivery Device NASAL CANNULA Blood Gas Liter Flow 2 L/M Blood Gas Inspired Oxygen 28 % Imaging Last Impressions Chest X-Ray 12/02/17 4828 Signed Impressions: Service Date/Time: Saturday, December 02, 2017 18:30 - CONCLUSION: Cardiomegaly. No acute cardiopulmonary disease. Mario Hooker MD Assessment and Plan Problem List: (1) Atrial arrhythmia ICD Codes: I49.8 - Other specified cardiac arrhythmias Plan: Status post atrial fibrillation ablation October 22, 2017. Having a recurrent atrial flutter/tachyarrhythmia, symptomatic with fatigue and dyspnea. Heart rate better controlled on Cardizem. Continues to take amiodarone and apixaban. Plan for possible cardioversion tomorrow if he does not spontaneously convert. Continue current therapy at this time per my discussion with Selam Alvarado Dec 04, 2017 08:14
[2017-12-04] MEDS: INSULIN DETEMIR 100 UNITS/ML VIAL SQ SCH ×2 (09:00→09:24)
[2017-12-04] MEDS: AMIODARONE 200 MG TAB PO SCH (09:22)
[2017-12-04] MEDS: APIXABAN 5 MG TABLET PO SCH ×2 (09:22→21:43)
[2017-12-04] MEDS: DILTIAZEM-CD 240 MG CAP ER PO SCH (09:22)
[2017-12-04] MEDS: PANTOPRAZOLE SOD 20 MG DELAYED RELEASE TAB PO SCH (09:22)
[2017-12-04] MEDS: ALLOPURINOL 100 MG TAB PO SCH (09:22)
--- NOTE | 2017-12-04 11:10 | HHI.PR ---
Subjective Remarks She said he had some shortness of breath last night lying down, much more comfortable in chair today. He says he sometimes sleeps in chair at home. Objective Vital Signs Date Time Temp Pulse Resp B/P (MAP) Pulse Ox O2 Delivery O2 Flow Rate FiO2 12/04/17 10:42 96 21 12/04/17 08:00 97.4 119 18 160/99 (119) 96 12/04/17 06:45 137/96 (110) 12/04/17 06:00 118 12/04/17 05:00 116 12/04/17 04:00 115 12/04/17 04:00 98.0 105 24 133/75 (94) 96 12/04/17 03:00 104 12/04/17 02:00 90 12/04/17 01:20 95 21 12/04/17 01:00 96 12/04/17 00:00 97.0 80 24 119/64 (82) 99 12/04/17 00:00 84 12/03/17 23:00 78 12/03/17 22:00 80 12/03/17 21:00 80 12/03/17 20:53 99 Nasal Cannula 2.00 12/03/17 20:00 98.0 102 22 120/70 (87) 98 12/03/17 20:00 82 12/03/17 19:50 99 Nasal Cannula 2.00 12/03/17 19:00 98 12/03/17 18:00 92 12/03/17 17:00 116 12/03/17 16:48 97.8 132 22 108/72 (84) 95 12/03/17 16:19 98 Nasal Cannula 2.00 12/03/17 16:00 112 12/03/17 15:01 112 24 100/68 (79) 97 12/03/17 15:00 114 12/03/17 14:00 110 12/03/17 13:14 97.9 94 20 94/44 (61) 95 12/03/17 13:00 100 12/03/17 12:00 101 I/O 12/03/17 12/03/17 12/03/17 12/04/17 12/04/17 12/04/17 07:00 15:00 23:00 07:00 15:00 23:00 Intake Total 1080 ml Output Total 200 ml 300 ml Balance -200 ml 780 ml Intake Oral 1080 ml Output Urine Total 200 ml 300 ml # Bowel Movements 1 Result Diagram: 12/03/17 0608 12/03/17 06 Objective Remarks GENERAL: Patient sitting up in bed eating breakfast. Appears comfortable. Tachycardic in the 110s this morning SKIN: Warm and dry. HEAD: Normocephalic. EYES: No scleral icterus. No injection or drainage. NECK: Supple, trachea midline. No JVD. CARDIOVASCULAR: Irregularly irregular rhythm with tachycardia. Without murmurs , gallops, or rubs. RESPIRATORY: Breath sounds equal bilaterally. No accessory muscle use. GASTROINTESTINAL: Abdomen soft, non-tender, nondistended. MUSCULOSKELETAL: No cyanosis, or edema. BACK: Nontender without obvious deformity. No CVA tenderness. A/P Assessment and Plan ==12/04/17 Cardiology following. Has switched to diltiazem. Continues with heart rate in the 110s. Some shortness of breath lying down tonight. =Will start on fluid restrictions. = Also started CPAP due to sleep apnea. = BMP and BNP pending. //Paroxysmal atrial fibrillation with RVR //CHF exacerbation. BNP 665 on admission Plan: Patient started on Cardizem drip. Continue the same. Check TSH Resume oral Cardizem and amiodarone. Wean off Cardizem drip as tolerated Consult flatbed truck driver, Dr. Garcia =12/03 Consult placed to cardiology. Switch to metoprolol due to hypotension. Continue to monitor on CIC. = 12/04. Shortness of breath overnight while lying down. Improved in chair. Will start fluid restrictions. Repeat BNP pending. Appreciate cardiology assistance //Chronic kidney disease, stage III (moderate) ICD Code: N18.3 - Chronic kidney disease, stage III (moderate) Status: Acute Plan: Renal function slightly worse. Likely cardiorenal secondary to A. fib with RVR as above. Monitor. Avoid nephrotoxins. = 12/03Creatinine stable. Continue to monitor. //Diabetes ICD Code: E11.9 - Diabetes Status: Acute Plan: Sliding scale insulin with Accu-Cheks = Blood sugars controlled. Continue to monitor. //Hypertension ICD Code: I10 - Hypertension Status: Acute Plan: Continue home dose hypertensives. //Hypothyroid ICD Code: E03.9 - Hypothyroidism, unspecified Plan: Continue levothyroxine. Check TSH = TSH within normal limits. Continue home levothyroxine. Discharge Planning Patient may need cardioversion. Appreciate cardiology assistance. Kulwinder Salcedo MD Dec 04, 2017 11:10
--- NOTE | 2017-12-04 11:12 | HHI.FF ---
Face to Face Verification Diagnosis: (1) Paroxysmal atrial fibrillation with RVR (2) Hypertension (3) Diabetes Physical Therapy Order: Evaluate and Treat Home Health Nursing Order: Diabetic education CHF education Nursing assessment with vital signs Instructions: Patient will need daily weights, home health nurse for medication management. Spark Plug Assembler Order: To Provide: Long range planning I have seen patient Pedro Otto, III on 12/04/17. My clinical findings support the need for the requested home health care services because: Med compliance is questionable Limited ability to care for self I certify that my clinical findings support that this patient is homebound because: Unsafe to leave home unassisted Kulwinder Salcedo MD Dec 04, 2017 11:12
--- NOTE | 2017-12-04 11:40 | MB ---
cc: Abhi Garcia MD DATE OF CONSULT: 12/03/2017 REASON FOR CONSULTATION: Electrophysiology study for atrial fibrillation with fast ventricular response. Shortness of breath. HISTORY OF PRESENT ILLNESS: Mr. Otto is a 72-year-old gentleman with diabetes mellitus, high blood pressure, hyperlipidemia, atrial fibrillation. At the beginning of October 2017 he was admitted due to shortness of breath with tachyarrhythmia. He was found in atrial fibrillation and rapid ventricular response. He was admitted. IV Cardizem was initiated. I was consulted for evaluation and management. The chart was reviewed. The patient was evaluated. ALLERGIES: PENICILLIN. SOCIAL HISTORY: Negative for smoking and drinking. FAMILY HISTORY: Noncontributory to his current medical condition. MEDICATIONS: He is on amiodarone, he is on Cardizem, he is on Eliquis 5 milligrams, he is on insulin, fish oil, atorvastatin, Prilosec, Levoxyl, Ramipril. REVIEW OF SYSTEMS: The patient referred feeling a little bit better, but still with shortness of breath. No chest pain or chest discomfort. No fever. PHYSICAL EXAMINATION: GENERAL: Alert, fully oriented, in bed. VITAL SIGNS: Blood pressure 108/72, pulse around 92, respiratory rate 20. LUNGS: Ventilated. CARDIOVASCULAR: S1, S2, no gallop. Irregular, tachycardic. ABDOMEN: Soft, obese, no mass. No bruits. EXTREMITIES: With minimal edema. ELECTROCARDIOGRAM: Indicates atrial fibrillation with fast ventricular response, right bundle branch block, left anterior fascicular block. ASSESSMENT AND RECOMMENDATIONS: Mr. Otto's condition is improving. Heart rate is better controlled. He is on Eliquis. He has some shortness of breath. At this point my recommendation is continuing on the current medication. I am going to discontinue the metoprolol. I am going to put him on Cardizem CD 240 milligrams a day. We will continue on amiodarone. He will be observed. Possible cardioversion on Friday. Case discussed extensively with the patient. Abhi Garcia MD / , 11:30 PM , 12:10 AM
[2017-12-04 12:32] LABS: BICARBONATE 19.1 MEQ/L (21.0-32.0); CALCIUM 8.5 MG/DL (8.5-10.1); CREATININE 3.46 MG/DL (0.60-1.30)
[2017-12-04] MEDS: SODIUM CHLORIDE 0.9% FLUSH 10 ML FLUSH IV FLUSH SCH (21:00)
[2017-12-04] MEDS: PRAMIPEXOLE DIHYDROCHLORIDE 0.25 MG TAB PO SCH (21:42)
[2017-12-04] MEDS: FUROSEMIDE 40 MG/4 ML VIAL IV PUSH SCH (21:49)
[2017-12-05] VITALS (12 sets, daily range): BP systolic 97–128; BP diastolic 61–81; PULSE 77–116; RESP 20; TEMP 97.5–98; O2SAT 93–99
[2017-12-05 02:12] LABS: AMORPHOUS SEDIMENT, URINE RARE; BILIRUBIN, URINE NEG (NEG); BLOOD, URINE MOD (NEG); CREATININE, RANDOM URINE 193.8 MG/DL; GLUCOSE,URINE NEG (NEG); HYALINE CAST, URINE 100 /lpf (RARE); KETONE, URINE NEG (NEG); MUCUS URINE FEW /lpf (OCC); NITRITE,URINE NEG (NEG); SQUAMOUS EPITHELIAL CELL URINE <1 /hpf (0-5); URINE COLOR YELLOW (YELLW/STRAW); URINE LEUKOCYTE ESTERASE NEG (NEG); WAXY CAST, URINE 1 /lpf
[2017-12-05] MEDS: RESP: IPRATROPIUM 0.5 MG/2.5 ML NEB NEB SCH ×4 (02:45→21:21)
[2017-12-05] MEDS: LEVOTHYROXINE SODIUM 125 MCG TAB PO SCH (06:53)
[2017-12-05 08:07] LABS: AUTOMATED NEUTROPHIL # 9.6 TH/MM3 (1.8-7.7); BASOPHIL % 0.1 % (0.0-2.0); HEMATOCRIT 37.3 % (39.0-51.0); HEMOGLOBIN 11.9 GM/DL (13.0-17.0); LYMPH % 12.2 % (9.0-44.0); LYMPHOCYTE # 1.5 TH/MM3 (1.0-4.8); MEAN CELL VOLUME 82.6 FL (80.0-100.0); MEAN CORPUSCULAR HEMOGLOBIN 26.4 PG (27.0-34.0); MEAN PLATELET VOLUME 9.1 FL (7.0-11.0); MONO % 8.6 % (0.0-8.0); NEUT % 79.1 % (16.0-70.0); PLATELET COUNT 199 TH/MM3 (150-450); RED BLOOD COUNT 4.51 MIL/MM3 (4.50-5.90); RED CELL DISTRIBUTION WIDTH 19.4 % (11.6-17.2); WHITE BLOOD COUNT 12.1 TH/MM3 (4.0-11.0)
[2017-12-05] MEDS: DILTIAZEM-CD 240 MG CAP ER PO SCH (08:27)
[2017-12-05] MEDS: SODIUM CHLORIDE 0.9% FLUSH 10 ML FLUSH IV FLUSH SCH ×2 (08:27→23:22)
[2017-12-05] MEDS: AMIODARONE 200 MG TAB PO SCH (08:27)
[2017-12-05] MEDS: ALLOPURINOL 100 MG TAB PO SCH (08:27)
[2017-12-05] MEDS: FUROSEMIDE 40 MG/4 ML VIAL IV PUSH SCH ×2 (08:27→18:00)
[2017-12-05] MEDS: PANTOPRAZOLE SOD 20 MG DELAYED RELEASE TAB PO SCH (08:27)
[2017-12-05] MEDS: APIXABAN 5 MG TABLET PO SCH ×2 (08:28→23:23)
[2017-12-05] MEDS: INSULIN DETEMIR 100 UNITS/ML VIAL SQ SCH ×2 (08:28→23:25)
[2017-12-05] MEDS: INSULIN ASPART SUPPLEMENTAL SCALE SQ SCH ×4 (08:29→23:24)
[2017-12-05 08:33] LABS: ALBUMIN 3.4 GM/DL (3.4-5.0); CALCIUM 8.7 MG/DL (8.5-10.1); CREATININE 4.32 MG/DL (0.60-1.30); MAGNESIUM 3.1 MG/DL (1.5-2.5); PHOSPHORUS 6.8 MG/DL (2.5-4.9)
--- NOTE | 2017-12-05 09:35 | HHI.PR ---
Subjective Remarks Follow up for Afib. No chest pain but reports dyspnea. No fever, chills. Objective Vitals Vital Signs Date Time Temp Pulse Resp B/P (MAP) Pulse Ox O2 Delivery O2 Flow Rate FiO2 12/05/17 08:45 Nasal Cannula 2.00 12/05/17 05:19 115 12/05/17 04:00 98.0 116 20 99/81 (87) 98 12/05/17 00:30 Nasal Cannula 2.00 12/04/17 23:52 97.5 115 22 105/71 (82) 99 12/04/17 21:32 95 Nasal Cannula 3.00 12/04/17 20:00 Nasal Cannula 2.00 21 12/04/17 20:00 98.0 115 91/69 (76) 99 12/04/17 18:00 102 12/04/17 17:00 111 12/04/17 16:05 99 Nasal Cannula 2.00 21 12/04/17 16:00 96.8 90 22 103/73 (83) 96 12/04/17 15:00 114 12/04/17 14:00 116 12/04/17 13:00 114 12/04/17 12:00 98.1 112 20 159/96 (117) 97 12/04/17 11:00 116 12/04/17 10:42 96 21 12/04/17 10:00 104 I/O 12/04/17 12/04/17 12/04/17 12/05/17 12/05/17 12/05/17 07:00 15:00 23:00 07:00 15:00 23:00 Intake Total 840 ml 240 ml Output Total 150 ml 450 ml 400 ml Balance -150 ml 390 ml -160 ml Intake Oral 840 ml 240 ml Output Urine Total 150 ml 450 ml 400 ml # Bowel Movements 0 0 Result Diagram: 12/05/17 0642 12/05/17 0642 Imaging Last Impressions Chest X-Ray 12/02/17 1019 Signed Impressions: Service Date/Time: Saturday, December 02, 2017 18:30 - CONCLUSION: Cardiomegaly. No acute cardiopulmonary disease. Mario Hooker MD Objective Remarks GENERAL: Alert, oriented 3, NAD. SKIN: Warm and dry. HEAD: Normocephalic. EYES: No scleral icterus. No injection or drainage. NECK: Supple, trachea midline. No JVD or lymphadenopathy. CARDIOVASCULAR: Irregularly irregular, tachycardic without murmurs, gallops, or rubs. RESPIRATORY: Breath sounds equal bilaterally. No accessory muscle use. GASTROINTESTINAL: Abdomen soft, non-tender, nondistended. MUSCULOSKELETAL: No cyanosis, or edema. BACK: Nontender without obvious deformity. No CVA tenderness. Procedures None A/P Problem List: (1) Paroxysmal atrial fibrillation with RVR ICD Code: I48.0 - Paroxysmal atrial fibrillation Status: Acute (2) Chronic kidney disease, stage III (moderate) ICD Code: N18.3 - Chronic kidney disease, stage III (moderate) Status: Acute (3) Diabetes ICD Code: E11.9 - Diabetes Status: Acute (4) Hypertension ICD Code: I10 - Hypertension Status: Acute (5) Hypothyroid ICD Code: E03.9 - Hypothyroidism, unspecified Assessment and Plan 72-year-old male with a medical history significant for diabetes, hypertension, atrial fibrillation status post ablation presented to the emergency room with complaint of shortness of breath. He was found to have atrial fibrillation with RVR. Cardiology was consulted. Atrial fibrillation with RVR. Systolic congestive heart failure -BNP 1181 on 12/04/2017. -Continue amiodarone 200 mg daily, diltiazem 240 mg p.o. daily -Continue furosemide 40 mg IV twice daily. -Possible cardioversion today by Dr. Garcia (). -Continue apixaban 5 mg twice daily. -Diabetes mellitus -Continue Levemir 12 units every 12 hours, sliding scale insulin. -Acute kidney injury -CKD stage III -Baseline creatinine appears to be around 1.7 -Creatinine has gradually worsened to 4.32 on 12/05/2017. -Renal ultrasound and nephrology consult pending. -Hypothyroidism -continue levothyroxine 125 mcg daily. Full code. Apixaban. Fina Dunne DO Dec 05, 2017 09:35
[2017-12-05] MEDS ORDERED: LACTULOSE SYRUP 20 GM/30 ML CUP PO PRN (12:45)
[2017-12-05] MEDS ORDERED: MAGNESIUM HYDROXIDE SUSP 30 ML CUP PO PRN (12:45)
[2017-12-05] MEDS ORDERED: SENNOSIDES 8.6 MG TAB PO PRN (12:45)
[2017-12-05] MEDS ORDERED: BISACODYL 10 MG SUPP RECTAL PRN (12:45)
[2017-12-05] MEDS ORDERED: NALOXONE HCL 0.4 MG/ML AMP IV PUSH PRN (12:45)
[2017-12-05] MEDS ORDERED: MIDAZOLAM HCL 5 MG/ML VIAL (1 ML) ONE (19:23)
--- NOTE | 2017-12-05 19:52 | HHI.PR ---
Subjective Remarks Tired Objective Vital Signs Date Time Temp Pulse Resp B/P (MAP) Pulse Ox O2 Delivery O2 Flow Rate FiO2 12/05/17 15:32 93 21 12/05/17 11:54 114 12/05/17 10:38 93 21 12/05/17 08:45 Nasal Cannula 2.00 12/05/17 07:51 113 12/05/17 05:19 115 12/05/17 04:00 98.0 116 20 99/81 (87) 98 12/05/17 00:30 Nasal Cannula 2.00 12/04/17 23:52 97.5 115 22 105/71 (82) 99 12/04/17 21:32 95 Nasal Cannula 3.00 12/04/17 20:00 Nasal Cannula 2.00 21 12/04/17 20:00 98.0 115 91/69 (76) 99 I/O 12/04/17 12/04/17 12/04/17 12/05/17 12/05/17 12/05/17 07:00 15:00 23:00 07:00 15:00 23:00 Intake Total 840 ml 240 ml Output Total 150 ml 450 ml 400 ml Balance -150 ml 390 ml -160 ml Intake Oral 840 ml 240 ml Output Urine Total 150 ml 450 ml 400 ml # Bowel Movements 0 0 Result Diagram: 12/05/17 0642 12/05/17 0642 Imaging Alert, fully oriented Lungs: ventilated Heart: S1, S2 regular, Abdomen: soft, no mass, obese Ext: No edema Last Impressions Chest X-Ray 12/02/17 8596 Signed Impressions: Service Date/Time: Saturday, December 02, 2017 18:30 - CONCLUSION: Cardiomegaly. No acute cardiopulmonary disease. Mario Hooker MD Current Medications Medications (Trade) Dose Ordered Sig/Az Route Start Time Stop Time Status Last Admin (NS Flush) 2 ml UNSCH PRN IV FLUSH 12/02/17 18:00 (NS Flush) 2 ml BID IV FLUSH 12/02/17 21:00 12/05/17 08:27 (Zyloprim) 100 mg DAILY PO 12/03/17 09:00 12/05/17 08:27 (Cordarone) 200 mg DAILY PO 12/03/17 09:00 12/05/17 08:27 (Synthroid) 125 mcg DAILY@0600 PO 12/03/17 06:00 12/05/17 06:53 (Protonix) 20 mg DAILY PO 12/03/17 09:00 12/05/17 08:27 (Mirapex) 0.5 mg HS PO 12/02/17 21:30 12/04/17 21:42 (D50w (Vial) Inj) 50 ml UNSCH PRN IV PUSH 12/02/17 21:15 (Glucagon Inj) 1 mg UNSCH PRN OTHER 12/02/17 21:15 (NovoLOG SUPPLEMENTAL SCALE) 1 ACHS SLIDING SCALE SQ 12/03/17 08:00 12/05/17 08:29 (Eliquis) 5 mg BID PO 12/03/17 09:00 12/04/17 21:43 (Atrovent Neb) 0.5 mg Q6HR NEB NEB 12/03/17 16:00 12/05/17 15:32 (Lopressor Inj) 5 mg Q5M PRN IV PUSH 12/03/17 12:30 12/04/17 06:04 (Cardizem Cd) 240 mg DAILY PO 12/04/17 09:00 12/05/17 08:27 (Levemir Inj) 12 units Q12HR SQ 12/05/17 09:00 12/05/17 08:28 (Lasix Inj) 40 mg BID@,18 IV PUSH 12/04/17 21:15 12/05/17 18:00 (Narcan Inj) 0.4 mg UNSCH PRN IV PUSH 12/05/17 12:45 (Milk Of Magnesia Liq) 30 ml Q12H PRN PO 12/05/17 12:45 (Senokot) 17.2 mg Q12H PRN PO 12/05/17 12:45 (Dulcolax Supp) 10 mg DAILY PRN RECTAL 12/05/17 12:45 (Lactulose Liq) 30 ml DAILY PRN PO 12/05/17 12:45 ([place] Andrzej) 1 lozenge UNSCH PRN BUCCAL 12/05/17 12:45 Assessment and Plan Problem List: (1) Atrial arrhythmia ICD Codes: I49.8 - Other specified cardiac arrhythmias (2) Paroxysmal atrial fibrillation with RVR ICD Codes: I48.0 - Paroxysmal atrial fibrillation Status: Acute Plan: Patient improving SP cardioversion In sinus rhythm Can be DH whenever ok with the managing team I will be available on a PRN basis Abhi Garcia MD Dec 05, 2017 19:52
[2017-12-05] MEDS ORDERED: FUROSEMIDE 100 MG/10 ML VIAL IV PUSH ONE (20:30)
[2017-12-05] MEDS ORDERED: ALBUMIN 25% INJ 100 ML IV ONE (20:30)
--- NOTE | 2017-12-05 20:44 | PD.CONS ---
HPI Service Nephrology Consult Requested By Dr. Dunne Reason for Consult [facility] Primary Care Physician Julian Hartman MD History of Present Illness Patient is a 72-year-old white male with acute renal failure, he is office patient seen in October his creatinine was 1.7, he had atrial fibrillation and underwent heart catheterization with ablation procedure, he is not readmitted with atrial fibrillation with shortness of breath, he underwent cardioversion today, he dropped his urine output and his creatinine is 4.32, potassium 5.2 He is on Lasix 40 mg twice a day He was lethargic after the procedure He appears to be confused Review of Systems ROS Limitations: Clinical Condition Past Family Social History Allergies: Coded Allergies: penicillin G (Unverified Allergy, Severe, Hives, 12/02/17) *MDRO Multi-Drug Resistant Organism (Unverified Allergy, Unknown, 12/02/17) MRSA 2010, 2013 Past Medical History Hypertension Type 2 diabetes Atrial fibrillation status post ablation on 11/10/17 Sleep apnea Chronic kidney disease TIA Hypothyroidism Past Surgical History Cholecystectomy History of ablation Reported Medications Reported Meds & Active Scripts Active Amiodarone (Amiodarone HCl) 200 Mg Tab 200 Mg PO DAILY Cardizem (Diltiazem HCl) 60 Mg Tab 60 Mg PO Q6HR Eliquis (Apixaban) 5 Mg Tab 5 Mg PO BID Reported Buspirone (Buspirone HCl) 5 Mg Tab Unknown Dose PO TID Niacinamide 500 Mg Tab 500 Mg PO DAILY Novolog Inj (Insulin Aspart) 1,000 Unit/10 Ml Vial 0 SQ DIRECTED Sliding Scale as directed. Hydrocodone-Acetaminophen 7.5 Mg-325 Mg Tab 1 Tab PO Q6H PRN [Testosterone] Fish Oil + D3 (Fish Oil-Cholecalciferol) 1,200-1,000 Mg-Unit Cap 1 Cap PO DAILY Pramipexole (Pramipexole Dihydrochloride) 0.5 Mg Tab 0.5 Mg PO HS Atorvastatin (Atorvastatin Calcium) 40 Mg Tab 40 Mg PO HS Sertraline (Sertraline HCl) 50 Mg Tab 50 Mg PO BID Prilosec (Omeprazole Magnesium) 20 Mg Tab 20 Mg PO DAILY Levothyroxine (Levothyroxine Sodium) 125 Mcg Tab 125 Mcg PO DAILY Bethanechol 25 Mg Tab 25 Mg PO DAILY Doxazosin (Doxazosin Mesylate) 4 Mg Tab 4 Mg PO HS Allopurinol 100 Mg Tab 100 Mg PO DAILY Ramipril 5 Mg Cap 5 Mg PO DAILY Lantus Inj (Insulin Glargine) 1,000 Unit/10 Ml Vial 56 Units SQ BID Active Ordered Medications Current Medications Medications (Trade) Dose Ordered Sig/Az Route Start Time Stop Time Status Last Admin (NS Flush) 2 ml UNSCH PRN IV FLUSH 12/02/17 18:00 (NS Flush) 2 ml BID IV FLUSH 12/02/17 21:00 12/05/17 08:27 (Zyloprim) 100 mg DAILY PO 12/03/17 09:00 12/05/17 08:27 (Cordarone) 200 mg DAILY PO 12/03/17 09:00 12/05/17 08:27 (Synthroid) 125 mcg DAILY@0600 PO 12/03/17 06:00 12/05/17 06:53 (Protonix) 20 mg DAILY PO 12/03/17 09:00 12/05/17 08:27 (Mirapex) 0.5 mg HS PO 12/02/17 21:30 12/04/17 21:42 (D50w (Vial) Inj) 50 ml UNSCH PRN IV PUSH 12/02/17 21:15 (Glucagon Inj) 1 mg UNSCH PRN OTHER 12/02/17 21:15 (NovoLOG SUPPLEMENTAL SCALE) 1 ACHS SLIDING SCALE SQ 12/03/17 08:00 12/05/17 08:29 (Eliquis) 5 mg BID PO 12/03/17 09:00 12/04/17 21:43 (Atrovent Neb) 0.5 mg Q6HR NEB NEB 12/03/17 16:00 12/05/17 15:32 (Lopressor Inj) 5 mg Q5M PRN IV PUSH 12/03/17 12:30 12/04/17 06:04 (Cardizem Cd) 240 mg DAILY PO 12/04/17 09:00 12/05/17 08:27 (Levemir Inj) 12 units Q12HR SQ 12/05/17 09:00 12/05/17 08:28 (Lasix Inj) 40 mg BID@,18 IV PUSH 12/04/17 21:15 12/05/17 18:00 (Narcan Inj) 0.4 mg UNSCH PRN IV PUSH 12/05/17 12:45 (Milk Of Magnesia Liq) 30 ml Q12H PRN PO 12/05/17 12:45 (Senokot) 17.2 mg Q12H PRN PO 12/05/17 12:45 (Dulcolax Supp) 10 mg DAILY PRN RECTAL 12/05/17 12:45 (Lactulose Liq) 30 ml DAILY PRN PO 12/05/17 12:45 (Vernal Andrzej) 1 lozenge UNSCH PRN BUCCAL 12/05/17 12:45 Family History Noncontributory Social History Denies smoking or alcohol use Physical Exam Vital Signs Vital Signs Date Time Temp Pulse Resp B/P (MAP) Pulse Ox O2 Delivery O2 Flow Rate FiO2 12/05/17 15:32 93 21 12/05/17 11:54 114 12/05/17 10:38 93 21 12/05/17 08:45 Nasal Cannula 2.00 12/05/17 07:51 113 12/05/17 05:19 115 12/05/17 04:00 98.0 116 20 99/81 (87) 98 12/05/17 00:30 Nasal Cannula 2.00 12/04/17 23:52 97.5 115 22 105/71 (82) 99 12/04/17 21:32 95 Nasal Cannula 3.00 Physical Exam GENERAL: Well-nourished, well-developed patient. SKIN: Warm and dry. HEAD: Normocephalic. EYES: No scleral icterus. No injection or drainage. NECK: Supple, trachea midline. No JVD or lymphadenopathy. CARDIOVASCULAR: Regular rate and rhythm without murmurs, gallops, or rubs. RESPIRATORY: Breath sounds diminished at bases with rhonchi GASTROINTESTINAL: Abdomen soft, non-tender, nondistended. EXTREMITIES: No cyanosis, or edema. NEUROLOGICAL: Lethargic Laboratory Laboratory Tests Test 12/05/17 00:00 12/05/17 06:42 Urine Color YELLOW Urine Turbidity HAZY Urine pH 5.0 Urine Specific [place] 1.015 Urine Protein TRACE Urine Glucose (UA) NEG Urine Ketones NEG Urine Occult Blood MOD Urine Nitrite NEG Urine Bilirubin NEG Urine Urobilinogen LESS THAN 2.0 Urine Leukocyte Esterase NEG Urine RBC 64 Urine WBC 5 Urine Squamous Epithelial Cells <1 Urine Amorphous Sediment RARE Urine Hyaline Casts 100 Urine Waxy Casts 1 Urine Mucus FEW Microscopic Urinalysis Comment CULT NOT INDICATED Urine Random Creatinine 193.8 Urine Random Sodium 31 White Blood Count 12.1 Red Blood Count 4.51 Hemoglobin 11.9 Hematocrit 37.3 Mean Corpuscular Volume 82.6 Mean Corpuscular Hemoglobin 26.4 Mean Corpuscular Hemoglobin Concent 32.0 Red Cell Distribution Width 19.4 Platelet Count 199 Mean Platelet Volume 9.1 Neutrophils (%) (Auto) 79.1 Lymphocytes (%) (Auto) 12.2 Monocytes (%) (Auto) 8.6 Eosinophils (%) (Auto) 0.0 Basophils (%) (Auto) 0.1 Neutrophils # (Auto) 9.6 Lymphocytes # (Auto) 1.5 Monocytes # (Auto) 1.0 Eosinophils # (Auto) 0.0 Basophils # (Auto) 0.0 CBC Comment DIFF FINAL Differential Comment Blood Urea Nitrogen 87 Creatinine 4.32 Random Glucose 150 Albumin 3.4 Calcium Level 8.7 Phosphorus Level 6.8 Magnesium Level 3.1 Sodium Level 138 Potassium Level 5.2 Chloride Level 106 Carbon Dioxide Level 15.0 Anion Gap 17 Estimat Glomerular Filtration Rate 14 Result Diagram: 12/05/17 0642 12/05/17 0642 Imaging Last Impressions Chest X-Ray 12/02/17 [id number] Signed Impressions: Service Date/Time: Saturday, December 02, 2017 18:30 - CONCLUSION: Cardiomegaly. No acute cardiopulmonary disease. Mario Hooker MD Assessment and Plan Problem List: (1) Acute renal failure ICD Codes: N17.9 - Acute kidney failure, unspecified Plan: Patient dropped his systolic blood pressure 80s to 90s and perfusion pressure during the hospitalization leading to acute tubular necrosis Urine output is slow I will give albumin followed by Lasix tonight Establish good urine output Continue to monitor BMP Avoid nephrotoxins Await kidney ultrasound (2) CKD (chronic kidney disease) stage 3, GFR 30-59 ml/min ICD Codes: N18.3 - Chronic kidney disease, stage 3 (moderate) Plan: Baseline creatinine of 1.7 and follows as an outpatient (3) Paroxysmal atrial fibrillation with RVR ICD Codes: I48.0 - Paroxysmal atrial fibrillation Status: Acute Plan: Status post cardioversion (4) Diabetes ICD Codes: E11.9 - Diabetes Status: Acute Plan: Continue to monitor (5) Hypertension ICD Codes: I10 - Hypertension Status: Acute Plan: Blood pressure has been low Susan Solo MD Dec 05, 2017 20:44
--- NOTE | 2017-12-05 22:27 | RADRPT ---
EXAM DATE/TIME: 12/05/2017 20:35 [facility] COMPARISON: No previous studies available for comparison. EXTERNAL COMPARISON : [facility], US RENAL BILATERAL, June 04, 2013[facility], US RENAL BILATERAL, 2010. INDICATIONS : Increased BUN/Creatinine. MEDICAL HISTORY : Hypothyroidism. Myocardial infarction. Hypercholesterolemia. CHF. Hypertension. GERD. Chronic kidney disease, stage 3. Arthritis. Diabetes. Measles. Shingles. MRSA. SURGICAL HISTORY : Cholecystectomy. Cardiac cath. Cardiac ablation. ENCOUNTER: Initial ACUITY: 1 day PAIN SCORE: 0/10 LOCATION: Bilateral flank MEASUREMENTS: RIGHT KIDNEY: 12.4 x 4.7 x 5.3 cm LEFT KIDNEY: 12.2 x 4.9 x 5.0 cm FINDINGS: RIGHT KIDNEY: The right kidney is increased in echogenicity suggesting medical renal disease. There is a lower pole cyst measuring 1.7 x 2.1 x 2.4 cm. No hydronephrosis or solid mass is noted. LEFT KIDNEY: The left kidney is increased in echogenicity suggesting medical renal disease. No hydronephrosis or s olid mass is noted. BLADDER: The urinary bladder is distended and a Andrade catheter is a noted in place. CONCLUSION: Echogenic kidneys suggesting medical renal disease. Lower pole right renal cyst measu ring 2.4 cm. Deep Kuo MD on December 05, 2017 at 22:24 Board Certified Radiologist. This report was verified electronically.
[2017-12-05] MEDS: PRAMIPEXOLE DIHYDROCHLORIDE 0.25 MG TAB PO SCH (23:23)
[2017-12-06] VITALS (11 sets, daily range): BP systolic 104–119; BP diastolic 69–82; PULSE 70–90; RESP 17–20; TEMP 97.2–98.8; O2SAT 95–98
[2017-12-06] MEDS: MENTHOL LOZENGE BUCCAL PRN ×2 (02:30→08:11)
[2017-12-06] MEDS: LEVOTHYROXINE SODIUM 125 MCG TAB PO SCH (06:08)
[2017-12-06] MEDS: RESP: IPRATROPIUM 0.5 MG/2.5 ML NEB NEB SCH ×3 (09:02→21:00)
--- NOTE | 2017-12-06 09:08 | EKG ---
Date Performed: 12/05/2017 Time Performed: 20:09:10 PTAGE: 72 years EKG: Sinus rhythm with 1st degree A-V block. Right axis deviation Right bundle branch block Inferior T wave changes ar e nonspecific Abnormal ECG PREVIOUS TRACING : 12/02/2017 21.24 DOCTOR: Kenan Pemberton Interpretating Date/Time 12/06/2017 09:07:07
[2017-12-06 09:13] LABS: AUTOMATED NEUTROPHIL # 8.8 TH/MM3 (1.8-7.7); BASOPHIL % 0.2 % (0.0-2.0); EOSINOPHIL % 0.1 % (0.0-4.0); HEMATOCRIT 35.7 % (39.0-51.0); HEMOGLOBIN 11.5 GM/DL (13.0-17.0); LYMPH % 14.2 % (9.0-44.0); LYMPHOCYTE # 1.6 TH/MM3 (1.0-4.8); MEAN CELL VOLUME 82.7 FL (80.0-100.0); MEAN CORPUSCULAR HEMOGLOBIN 26.5 PG (27.0-34.0); MEAN CORPUSCULAR HGB CONC 32.1 % (32.0-36.0); MEAN PLATELET VOLUME 9.4 FL (7.0-11.0); MONO % 9.3 % (0.0-8.0); MONOCYTE # 1.1 TH/MM3 (0-0.9); NEUT % 76.2 % (16.0-70.0); PLATELET COUNT 223 TH/MM3 (150-450); RED BLOOD COUNT 4.32 MIL/MM3 (4.50-5.90); RED CELL DISTRIBUTION WIDTH 19.2 % (11.6-17.2); WHITE BLOOD COUNT 11.5 TH/MM3 (4.0-11.0)
--- NOTE | 2017-12-06 09:18 | EKG ---
Date Performed: 12/05/2017 Time Performed: 17:31:18 PTAGE: 72 years EKG: Sinus tachycardia with borderline 1st degree A-V block Lead(s) unsuitable for analysis: V4 Possible left atrial abnormality Right axis deviation Right bundle branch block Inferior T wave dobbs es are nonspecific Abnormal ECG NO PREVIOUS TRACING DOCTOR: Kenan Pemberton Interpretating Date/Time 12/06/2017 09:17:24
[2017-12-06] MEDS: ALLOPURINOL 100 MG TAB PO SCH (09:23)
[2017-12-06] MEDS: APIXABAN 5 MG TABLET PO SCH ×2 (09:23→21:19)
[2017-12-06] MEDS: PANTOPRAZOLE SOD 20 MG DELAYED RELEASE TAB PO SCH (09:23)
[2017-12-06] MEDS: AMIODARONE 200 MG TAB PO SCH (09:23)
[2017-12-06] MEDS: DILTIAZEM-CD 240 MG CAP ER PO SCH (09:23)
[2017-12-06] MEDS: FUROSEMIDE 40 MG/4 ML VIAL IV PUSH SCH ×2 (09:24→18:11)
[2017-12-06] MEDS: INSULIN ASPART SUPPLEMENTAL SCALE SQ SCH ×4 (09:24→21:00)
[2017-12-06] MEDS: INSULIN DETEMIR 100 UNITS/ML VIAL SQ SCH ×2 (09:24→21:00)
[2017-12-06] MEDS: SODIUM CHLORIDE 0.9% FLUSH 10 ML FLUSH IV FLUSH SCH ×2 (09:24→21:20)
[2017-12-06 09:42] LABS: ALBUMIN 3.7 GM/DL (3.4-5.0); BICARBONATE 16.6 MEQ/L (21.0-32.0); CALCIUM 8.9 MG/DL (8.5-10.1); CREATININE 5.01 MG/DL (0.60-1.30); PHOSPHORUS 7.5 MG/DL (2.5-4.9)
--- NOTE | 2017-12-06 16:36 | HHI.PR ---
Subjective Remarks Follow up for Afib. No chest pain but reports dyspnea. Patient is currently doing well resting in bed. He underwent cardioversion yesterday. No acute concerns. Objective Vitals Vital Signs Date Time Temp Pulse Resp B/P (MAP) Pulse Ox O2 Delivery O2 Flow Rate FiO2 12/06/17 15:35 97 Nasal Cannula 2.00 12/06/17 12:00 97.3 72 19 104/80 (88) 97 12/06/17 08:00 Nasal Cannula 2.00 12/06/17 08:00 98.3 80 18 105/74 (84) 98 12/06/17 04:00 98.4 73 20 108/77 (87) 96 12/06/17 03:47 76 12/06/17 03:20 95 Nasal Cannula 2.00 12/06/17 00:00 97.2 78 20 119/78 (92) 95 12/05/17 23:00 78 12/05/17 20:57 78 12/05/17 20:00 Nasal Cannula 2.00 12/05/17 20:00 97.9 77 20 128/71 (90) 97 I/O 12/05/17 12/05/17 12/05/17 12/06/17 12/06/17 12/06/17 07:00 15:00 23:00 07:00 15:00 23:00 Intake Total 240 ml 360 ml Output Total 400 ml 800 ml 550 ml Balance -160 ml -440 ml -550 ml Intake Oral 240 ml 360 ml Output Urine Total 400 ml 800 ml 550 ml # Bowel Movements 0 0 Result Diagram: 12/06/17 0809 12/06/17 0809 Imaging Last Impressions Renal Ultrasound 12/05/17 0000 Signed Impressions: Service Date/Time: Tuesday, December 05, 2017 20:35 - CONCLUSION: Echogenic kidneys suggesting medical renal disease. Lower pole right renal cyst measuring 2.4 cm. Deep Kuo MD Chest X-Ray 12/02/17 [id number] Signed Impressions: Service Date/Time: Saturday, December 02, 2017 18:30 - CONCLUSION: Cardiomegaly. No acute cardiopulmonary disease. Mario Hooker MD Objective Remarks GENERAL: Alert, oriented 3, NAD. SKIN: Warm and dry. HEAD: Normocephalic. EYES: No scleral icterus. No injection or drainage. NECK: Supple, trachea midline. No JVD or lymphadenopathy. CARDIOVASCULAR: Irregularly irregular, tachycardic without murmurs, gallops, or rubs. RESPIRATORY: Breath sounds equal bilaterally. No accessory muscle use. GASTROINTESTINAL: Abdomen soft, non-tender, nondistended. MUSCULOSKELETAL: No cyanosis, or edema. BACK: Nontender without obvious deformity. No CVA tenderness. Procedures None A/P Problem List: (1) Paroxysmal atrial fibrillation with RVR ICD Code: I48.0 - Paroxysmal atrial fibrillation Status: Acute (2) Chronic kidney disease, stage III (moderate) ICD Code: N18.3 - Chronic kidney disease, stage III (moderate) Status: Acute (3) Diabetes ICD Code: E11.9 - Diabetes Status: Acute (4) Hypertension ICD Code: I10 - Hypertension Status: Acute (5) Hypothyroid ICD Code: E03.9 - Hypothyroidism, unspecified Assessment and Plan 72-year-old male with a medical history significant for diabetes, hypertension, atrial fibrillation status post ablation presented to the emergency room with complaint of shortness of breath. He was found to have atrial fibrillation with RVR. Cardiology was consulted. Atrial fibrillation with RVR. Systolic congestive heart failure -BNP 1181 on 12/04/2017. -Continue amiodarone 200 mg daily, diltiazem 240 mg p.o. daily -Continue furosemide 40 mg IV twice daily. -Possible cardioversion today by Dr. Garcia (). -Continue apixaban 5 mg twice daily. -Diabetes mellitus -Continue Levemir 12 units every 12 hours, sliding scale insulin. -Acute kidney injury -CKD stage III -Baseline creatinine appears to be around 1.7 -Creatinine has gradually worsened to 4.32 and today 5.01. -Renal ultrasound shows medical disease. Nephrology following. -Hypothyroidism -continue levothyroxine 125 mcg daily. Full code. Apixaban. Fina Dunne DO Dec 06, 2017 16:36
[2017-12-06] MEDS: PHENOL 1.4% SOLN 180 ML BTL OROPHARYNG PRN (18:12)
[2017-12-06] MEDS: PRAMIPEXOLE DIHYDROCHLORIDE 0.25 MG TAB PO SCH (21:19)
[2017-12-06] MEDS ORDERED: ACETAMINOPHEN/HYDROcodone 325 MG/5 MG TAB PO ONE (23:00)
[2017-12-07] VITALS (8 sets, daily range): BP systolic 101–125; BP diastolic 58–67; PULSE 72–88; RESP 19–24; TEMP 97.3–98.1; O2SAT 93–97
[2017-12-07] MEDS: RESP: IPRATROPIUM 0.5 MG/2.5 ML NEB NEB SCH ×4 (03:56→21:01)
[2017-12-07] MEDS: LEVOTHYROXINE SODIUM 125 MCG TAB PO SCH (05:38)
[2017-12-07] MEDS ORDERED: ACETAMINOPHEN/HYDROcodone 325 MG/5 MG TAB PO ONE (06:00)
[2017-12-07] MEDS: INSULIN ASPART SUPPLEMENTAL SCALE SQ SCH ×4 (07:39→21:00)
[2017-12-07] MEDS: DILTIAZEM-CD 240 MG CAP ER PO SCH (08:27)
[2017-12-07] MEDS: ALLOPURINOL 100 MG TAB PO SCH (08:27)
[2017-12-07] MEDS: FUROSEMIDE 40 MG/4 ML VIAL IV PUSH SCH ×2 (08:27→16:53)
[2017-12-07] MEDS: APIXABAN 5 MG TABLET PO SCH ×2 (08:27→21:48)
[2017-12-07] MEDS: AMIODARONE 200 MG TAB PO SCH (08:27)
[2017-12-07] MEDS: PANTOPRAZOLE SOD 20 MG DELAYED RELEASE TAB PO SCH (08:27)
[2017-12-07] MEDS: SODIUM CHLORIDE 0.9% FLUSH 10 ML FLUSH IV FLUSH SCH ×2 (08:28→21:51)
[2017-12-07] MEDS: INSULIN DETEMIR 100 UNITS/ML VIAL SQ SCH ×2 (08:28→21:48)
[2017-12-07] MEDS: ACETAMINOPHEN/HYDROcodone 325 MG/5 MG TAB PO PRN ×2 (10:23→16:53)
[2017-12-07 13:29] LABS: BICARBONATE 21.4 MEQ/L (21.0-32.0); CALCIUM 8.4 MG/DL (8.5-10.1); CREATININE 4.55 MG/DL (0.60-1.30)
--- NOTE | 2017-12-07 14:13 | HHI.PR ---
Subjective Remarks Follow up for Afib, DANA. Patient is currently doing well. No acute concerns. No fever, chills. Objective Vitals Vital Signs Date Time Temp Pulse Resp B/P (MAP) Pulse Ox O2 Delivery O2 Flow Rate FiO2 12/07/17 12:00 97.7 79 22 105/61 (76) 93 12/07/17 12:00 78 12/07/17 09:35 94 21 12/07/17 08:00 97.3 80 22 101/61 (74) 93 12/07/17 08:00 76 12/07/17 07:42 Room Air 12/07/17 04:00 Room Air 12/07/17 04:00 97.8 80 20 119/67 (84) 95 12/07/17 04:00 80 12/07/17 03:58 Nasal Cannula 2.00 12/07/17 00:00 Room Air 12/07/17 00:00 97.4 78 19 123/66 (85) 95 12/07/17 00:00 78 12/06/17 23:00 75 12/06/17 20:00 98.8 76 20 115/69 (84) 98 12/06/17 20:00 Room Air 12/06/17 18:44 90 12/06/17 16:00 Room Air 12/06/17 16:00 98.1 72 17 115/82 (93) 96 12/06/17 15:35 97 Nasal Cannula 2.00 I/O 12/06/17 12/06/17 12/06/17 12/07/17 12/07/17 12/07/17 06:59 14:59 22:59 06:59 14:59 22:59 Intake Total 440 ml 100 ml Output Total 550 ml 300 ml 1400 ml Balance -550 ml 140 ml -1300 ml Intake Oral 440 ml 100 ml Output Urine Total 550 ml 300 ml 1400 ml # Bowel Movements 1 Result Diagram: 12/06/17 0809 12/07/17 1230 Imaging Last Impressions Renal Ultrasound 12/05/17 0000 Signed Impressions: Service Date/Time: Tuesday, December 05, 2017 20:35 - CONCLUSION: Echogenic kidneys suggesting medical renal disease. Lower pole right renal cyst measuring 2.4 cm. Deep Kuo MD Chest X-Ray 12/02/17 [id number] Signed Impressions: Service Date/Time: Saturday, December 02, 2017 18:30 - CONCLUSION: Cardiomegaly. No acute cardiopulmonary disease. Mario Hooker MD Objective Remarks GENERAL: Alert, oriented 3, NAD. SKIN: Warm and dry. HEAD: Normocephalic. EYES: No scleral icterus. No injection or drainage. NECK: Supple, trachea midline. No JVD or lymphadenopathy. CARDIOVASCULAR: Irregularly irregular, tachycardic without murmurs, gallops, or rubs. RESPIRATORY: Breath sounds equal bilaterally. No accessory muscle use. GASTROINTESTINAL: Abdomen soft, non-tender, nondistended. MUSCULOSKELETAL: No cyanosis, or edema. BACK: Nontender without obvious deformity. No CVA tenderness. Procedures None A/P Problem List: (1) Paroxysmal atrial fibrillation with RVR ICD Code: I48.0 - Paroxysmal atrial fibrillation Status: Acute (2) Chronic kidney disease, stage III (moderate) ICD Code: N18.3 - Chronic kidney disease, stage III (moderate) Status: Acute (3) Diabetes ICD Code: E11.9 - Diabetes Status: Acute (4) Hypertension ICD Code: I10 - Hypertension Status: Acute (5) Hypothyroid ICD Code: E03.9 - Hypothyroidism, unspecified Assessment and Plan 72-year-old male with a medical history significant for diabetes, hypertension, atrial fibrillation status post ablation presented to the emergency room with complaint of shortness of breath. He was found to have atrial fibrillation with RVR. Cardiology was consulted. Atrial fibrillation with RVR. Systolic congestive heart failure -BNP 1181 on 12/04/2017. -Continue amiodarone 200 mg daily, diltiazem 240 mg p.o. daily -Continue furosemide 40 mg IV twice daily. -Possible cardioversion today by Dr. Garcia (). -Continue apixaban 5 mg twice daily. -Diabetes mellitus -Continue Levemir 12 units every 12 hours, sliding scale insulin. -Acute kidney injury -CKD stage III -Baseline creatinine appears to be around 1.7 -Creatinine has gradually worsened to 4.32 --> 5.00 --> 4.55. -Renal ultrasound shows medical disease. Nephrology following. -Will check Creatinine in the AM. If downward trend continues, we will ask Nephrology for discharge clearance. -Hypothyroidism -continue levothyroxine 125 mcg daily. Full code. Apixaban. Fina Dunne DO Dec 07, 2017 14:12
[2017-12-07] MEDS: PRAMIPEXOLE DIHYDROCHLORIDE 0.25 MG TAB PO SCH (21:47)
[2017-12-07] MEDS: MENTHOL LOZENGE BUCCAL PRN (21:48)
[2017-12-08] VITALS: BP 99/63; PULSE 86; PULSE 90; RESP 24; TEMP 97.3; O2SAT 95
[2017-12-08] MEDS: ACETAMINOPHEN/HYDROcodone 325 MG/5 MG TAB PO PRN ×2 (00:38→13:12)
[2017-12-08 04:00] VITALS: BP 118/75; PULSE 115; PULSE 86; RESP 22; TEMP 97.4; O2SAT 99
[2017-12-08] MEDS: RESP: IPRATROPIUM 0.5 MG/2.5 ML NEB NEB SCH ×3 (04:00→15:04)
[2017-12-08] MEDS: LEVOTHYROXINE SODIUM 125 MCG TAB PO SCH (05:31)
[2017-12-08 08:03] VITALS: BP 99/71; PULSE 89; RESP 18; TEMP 97.3; O2SAT 97
[2017-12-08 08:23] LABS: CALCIUM 8.5 MG/DL (8.5-10.1); CREATININE 4.11 MG/DL (0.60-1.30)
[2017-12-08 08:33] VITALS: O2SAT 96
[2017-12-08] MEDS: AMIODARONE 200 MG TAB PO SCH (08:52)
[2017-12-08] MEDS: ALLOPURINOL 100 MG TAB PO SCH (08:52)
[2017-12-08] MEDS: PANTOPRAZOLE SOD 20 MG DELAYED RELEASE TAB PO SCH (08:52)
[2017-12-08] MEDS: APIXABAN 5 MG TABLET PO SCH (08:52)
[2017-12-08] MEDS: SODIUM CHLORIDE 0.9% FLUSH 10 ML FLUSH IV FLUSH SCH (08:53)
[2017-12-08] MEDS: INSULIN DETEMIR 100 UNITS/ML VIAL SQ SCH (08:53)
[2017-12-08] MEDS: INSULIN ASPART SUPPLEMENTAL SCALE SQ SCH ×2 (08:55→12:37)
[2017-12-08] MEDS: FUROSEMIDE 40 MG/4 ML VIAL IV PUSH SCH (09:00)
[2017-12-08] MEDS: DILTIAZEM-CD 240 MG CAP ER PO SCH (09:04)
[2017-12-08 12:00] VITALS: PULSE 105
[2017-12-08 12:03] VITALS: BP 102/69; PULSE 86; RESP 20; TEMP 97.9; O2SAT 97
[2017-12-08] MEDS ORDERED: DILT240C44 PO (12:21)
[2017-12-08] MEDS ORDERED: LANTUS2P SQ ×2 (12:21→12:34)
[2017-12-08] MEDS: PHENOL 1.4% SOLN 180 ML BTL OROPHARYNG PRN (13:12)
[2017-12-08] MEDS: MENTHOL LOZENGE BUCCAL PRN (13:14)
--- NOTE | 2017-12-08 13:53 | HHI.NPPN ---
Subjective History of Present Illness 72 year old with ARF/CKD non oliguric more alert ready to go home Objective Data Data Vital Signs Date Time Temp Pulse Resp B/P (MAP) Pulse Ox O2 Delivery O2 Flow Rate FiO2 12/08/17 12:03 97.9 86 20 102/69 (80) 97 12/08/17 09:49 Nasal Cannula 2.00 12/08/17 08:33 96 21 12/08/17 08:03 97.3 89 18 99/71 (80) 97 12/08/17 04:00 Room Air 12/08/17 04:00 86 12/08/17 04:00 97.4 115 22 118/75 (89) 99 12/08/17 00:00 97.3 90 24 99/63 (75) 95 12/08/17 00:00 Room Air 12/08/17 00:00 86 12/07/17 21:01 93 21 12/07/17 20:00 97.7 72 24 118/58 (78) 97 12/07/17 20:00 88 12/07/17 20:00 97 Room Air 12/07/17 16:00 98.1 79 20 125/67 (86) 95 -: 12/06/17 0809 12/08/17 0645 Physical Exam General Appearance: Well Developed, Well Nourished Neck Neck Exam: Neck Supple Pulmonary Resp Exam: Clear Bilaterally, Breath Sounds Equal Cardiology CV Exam: Regular, Normal Sinus Rhythm Gastrointestinal/Abdomen GI Exam: Soft, Non-Tender, Bowel Sounds Present Extremeties Extremities Exam: No Edema Neurologic Neuro Exam: Alert, Awake Assessment/Plan Problem List: (1) Acute renal failure ICD Codes: N17.9 - Acute kidney failure, unspecified Plan: Patient dropped his systolic blood pressure 80s to 90s and perfusion pressure during the hospitalization leading to acute tubular necrosis Urine output is picked up 4.5 L Continue to monitor BMP as out pt Cr 4.1 declining Avoid nephrotoxins kidney ultrasound echogenic kidneys rt lower pole cyst (2) CKD (chronic kidney disease) stage 3, GFR 30-59 ml/min ICD Codes: N18.3 - Chronic kidney disease, stage 3 (moderate) Plan: Baseline creatinine of 1.7 and follows as an outpatient (3) Paroxysmal atrial fibrillation with RVR ICD Codes: I48.0 - Paroxysmal atrial fibrillation Status: Acute Plan: Status post cardioversion (4) Diabetes ICD Codes: E11.9 - Diabetes Status: Acute Plan: Continue to monitor (5) Hypertension ICD Codes: I10 - Hypertension Status: Acute Plan: Blood pressure has been low Susan Solo MD Dec 08, 2017 13:53
--- NOTE | 2017-12-08 20:01 | HHI.DS ---
Discharge Summary Admission Date Dec 02, 2017 at 18:39 Discharge Date: Dec 08, 2017 Admitting Diagnosis afib with rvr, dyspnea, dm, htn. (1) Paroxysmal atrial fibrillation with RVR ICD Code: I48.0 - Paroxysmal atrial fibrillation Status: Acute (2) Chronic kidney disease, stage III (moderate) ICD Code: N18.3 - Chronic kidney disease, stage III (moderate) Status: Acute (3) Diabetes ICD Code: E11.9 - Diabetes Status: Acute (4) Hypertension ICD Code: I10 - Hypertension Status: Acute (5) Hypothyroid ICD Code: E03.9 - Hypothyroidism, unspecified Procedures Cardioversion by cardiology. Brief History - From Admission 72-year-old male with a medical history significant for diabetes, hypertension, atrial fibrillation status post ablation presented to the emergency room with complaint of shortness of breath. Patient is a poor historian and deferred to his rail car repair carman for the history. Apparently for the past 10 days, he has been experiencing significant shortness of breath with minimal activity. He reports that he has been having occasional episodes of nosebleed. He denies any chest pain. His rail car repair carman states he appears to be fine at rest but with any activities, he gets severely short of breath. Patient was seen by his primary care physician today who sent him to the emergency room for uncontrolled heart rate. CBC/BMP: 12/06/17 0809 12/08/17 0645 Significant Findings Laboratory Tests Test 12/06/17 08:09 12/07/17 12:30 12/08/17 06:45 White Blood Count 11.5 TH/MM3 (4.0-11.0) Red Blood Count 4.32 MIL/MM3 (4.50-5.90) Hemoglobin 11.5 GM/DL (13.0-17.0) Hematocrit 35.7 % (39.0-51.0) Mean Corpuscular Hemoglobin 26.5 PG (27.0-34.0) Red Cell Distribution Width 19.2 % (11.6-17.2) Neutrophils (%) (Auto) 76.2 % (16.0-70.0) Monocytes (%) (Auto) 9.3 % (0.0-8.0) Neutrophils # (Auto) 8.8 TH/MM3 (1.8-7.7) Monocytes # (Auto) 1.1 TH/MM3 (0-0.9) Blood Urea Nitrogen 108 MG/DL (7-18) 123 MG/DL (7-18) 118 MG/DL (7-18) Creatinine 5.01 MG/DL (0.60-1.30) 4.55 MG/DL (0.60-1.30) 4.11 MG/DL (0.60-1.30) Random Glucose 177 MG/DL (74-106) 109 MG/DL (74-106) Phosphorus Level 7.5 MG/DL (2.5-4.9) Carbon Dioxide Level 16.6 MEQ/L (21.0-32.0) Anion Gap 16 MEQ/L (5-15) Estimat Glomerular Filtration Rate 11 ML/MIN (>89) 13 ML/MIN (>89) 14 ML/MIN (>89) Calcium Level 8.4 MG/DL (8.5-10.1) Chloride Level 109 MEQ/L (98-107) Imaging Last Impressions Renal Ultrasound 12/05/17 0000 Signed Impressions: Service Date/Time: Tuesday, December 05, 2017 20:35 - CONCLUSION: Echogenic kidneys suggesting medical renal disease. Lower pole right renal cyst measuring 2.4 cm. Deep Kuo MD Chest X-Ray 12/02/17 1758 Signed Impressions: Service Date/Time: Saturday, December 02, 2017 18:30 - CONCLUSION: Cardiomegaly. No acute cardiopulmonary disease. Mario Hooker MD PE at Discharge GENERAL: Alert, oriented 3, NAD. SKIN: Warm and dry. HEAD: Normocephalic. EYES: No scleral icterus. No injection or drainage. NECK: Supple, trachea midline. No JVD or lymphadenopathy. CARDIOVASCULAR: Irregularly irregular, tachycardic without murmurs, gallops, or rubs. RESPIRATORY: Breath sounds equal bilaterally. No accessory muscle use. GASTROINTESTINAL: Abdomen soft, non-tender, nondistended. MUSCULOSKELETAL: No cyanosis, or edema. BACK: Nontender without obvious deformity. No CVA tenderness. Pt update on day of discharge Patient is doing well. No acute concerns. No fever, chills. Hospital Course 72-year-old male with a medical history significant for diabetes, hypertension, atrial fibrillation status post ablation presented to the emergency room with complaint of shortness of breath. He was found to have atrial fibrillation with RVR. Cardiology was consulted. Atrial fibrillation with RVR. Systolic congestive heart failure -BNP 1181 on 12/04/2017. -Continue amiodarone 200 mg daily, diltiazem 240 mg p.o. daily -Continue furosemide 40 mg IV twice daily. -Cardioversion done by Dr. Garcia (). -Continue apixaban 5 mg twice daily. -Diabetes mellitus -Continue Levemir 12 units every 12 hours, sliding scale insulin. -Acute kidney injury -CKD stage III -Baseline creatinine appears to be around 1.7 -Creatinine has gradually worsened to 4.32 --> 5.00 --> 4.55 --> 4.11. -Renal ultrasound shows medical disease. Nephrology following. -D/W Nephrology who is okay with discharging patient with outpatient follow up. -Hypothyroidism -continue levothyroxine 125 mcg daily. Full code. Apixaban. Pt Condition on Discharge: Good Discharge Disposition: Disch w/ Home Health Serv Discharge Time: > 30 minutes Discharge Instructions DIET: Follow Instructions for: Heart Healthy Diet Activities you can perform: Regular-No Restrictions Follow up Referrals: Appointment for Follow Up - 1 Week Nephrology - 1 Week with Susan Solo MD PCP Follow-up - 1 Week PCP Follow-up - 1 Week @ [facility]/ with [facility] New Medications: Insulin Glargine Inj (Lantus Inj) 1,000 Unit/10 Ml Vial 12 UNITS SQ BID for Blood Sugar Management for 30 Days, VIAL 0 Refills Diltiazem CD 24 HR (Diltiazem CD 24 HR) 240 Mg Caper 240 MG PO DAILY for Afib, #30 CAP Continued Medications: Allopurinol (Allopurinol) 100 Mg Tab 100 MG PO DAILY for Gout, #30 TAB 0 Refills Amiodarone (Amiodarone) 200 Mg Tab 200 MG PO DAILY for Regulate Heart Beat, #30 TAB 0 Refills Apixaban (Eliquis) 5 Mg Tab 5 MG PO BID for atrial fibrillation, #30 TAB 0 Refills Atorvastatin (Atorvastatin) 40 Mg Tab 40 MG PO HS for Cholesterol Management, #30 TAB 0 Refills Bethanechol (Bethanechol) 25 Mg Tab 25 MG PO DAILY for Urinary Symptom Managemen, TAB 0 Refills Buspirone (Buspirone) 5 Mg Tab Unknown Dose PO TID for Anxiety, TAB 0 Refills Doxazosin (Doxazosin) 4 Mg Tab 4 MG PO HS, TAB Fish Oil-Cholecalciferol (Fish Oil + D3) 1,200-1,000 Mg-Unit Cap 1 CAP PO DAILY for Nutritional Supplement, #30 CAP 0 Refills Hydrocodone-Acetaminophen (Hydrocodone-Acetaminophen) 7.5 Mg-325 Mg Tab 1 TAB PO Q6H PRN for PAIN, TAB 0 Refills Insulin Aspart Inj (Novolog Inj) 1,000 Unit/10 Ml Vial 0 SQ DIRECTED for Blood Sugar Management, #10 ML 0 Refills Sliding Scale as directed. Levothyroxine (Levothyroxine) 125 Mcg Tab 125 MCG PO DAILY for Thyroid, #30 TAB 0 Refills Niacinamide (Niacinamide) 500 Mg Tab 500 MG PO DAILY for Nutritional Supplement, TAB 0 Refills Omeprazole Magnesium (Prilosec) 20 Mg Tab 20 MG PO DAILY Pramipexole (Pramipexole) 0.5 Mg Tab 0.5 MG PO HS for Parkinson Disease Mgmt, #30 TAB 0 Refills Ramipril (Ramipril) 5 Mg Cap 5 MG PO DAILY, #30 CAP 0 Refills Sertraline (Sertraline) 50 Mg Tab 50 MG PO BID, #30 TAB 0 Refills [Testosterone] () Discontinued Medications: Diltiazem (Cardizem) 60 Mg Tab 60 MG PO Q6HR for atrial fibrillation, #120 TAB 0 Refills Insulin Glargine Inj (Lantus Inj) 1,000 Unit/10 Ml Vial 56 UNITS SQ BID for Blood Sugar Management, VIAL 0 Refills Fina Dunne DO Dec 08, 2017 20:01
== END 2017-12-08 16:58 | disposition home health service (06) | DRG 308 ==
LOC: NEPE 14:52 → NEDA 18:39 → HCIN 22:30 → N04A 12-04 23:55
PROVIDERS: ADMIT Hospitalist; ATTEND Hospitalist
PROC: 5A2204Z Restoration of Cardiac Rhythm, Single (ICD-10-PCS; principal; 2017-12-05)
DX: I48.0 Paroxysmal atrial fibrillation (principal); N17.0 Acute kidney failure with tubular necrosis; I13.0 Hypertensive heart and chronic kidney disease with heart failure and stage 1 through stage 4 chronic kidney disease, or unspecified chronic kidney disease; I95.9 Hypotension, unspecified; E11.22 Type 2 diabetes mellitus with diabetic chronic kidney disease; I50.22 Chronic systolic (congestive) heart failure; N18.3 Chronic kidney disease, stage 3 (moderate); E03.9 Hypothyroidism, unspecified; E78.5 Hyperlipidemia, unspecified; H91.90 Unspecified hearing loss, unspecified ear; I48.92 Unspecified atrial flutter; K21.9 Gastro-esophageal reflux disease without esophagitis; F32.9 Major depressive disorder, single episode, unspecified; G47.30 Sleep apnea, unspecified; Z86.73 Personal history of transient ischemic attack (TIA), and cerebral infarction without residual deficits; Z79.4 Long term (current) use of insulin; Z79.01 Long term (current) use of anticoagulants; I25.2 Old myocardial infarction
CPT/HCPCS: 36600; 71045; 76775; 80048; 80053; 80069; 81001; 82550; 82570; 82805; 82948; 83735; 83880; 84300; 84443; 84484; 85025; 85610; 85730; 92960; 93005; 94640; 94664; 96365; 96375; J1815; J1940; J2250; J3010; J7644; P9047

== ENCOUNTER 2017-12-28 04:47 | Inpatient (IN) | payer OTHER, MEDICARE ==
[2017-12-28] VITALS (12 sets, daily range): BP systolic 110–155; BP diastolic 73–118; PULSE 67–117; RESP 22–23; TEMP 98.4–98.8; O2SAT 93–99
[~2017-12-28] VITALS: Ht 177.8 cm; Wt 91.7 kg
[~2017-12-28 04:47] MED LIST changes: +DILT240C44 PO; -DILT60TA33 PO
[2017-12-28] MEDS ORDERED: FUROSEMIDE 100 MG/10 ML VIAL IVP ONE (05:00)
[2017-12-28] MEDS ORDERED: SODIUM CHLORIDE 0.9% FLUSH 10 ML FLUSH IVF PRN (05:00)
[2017-12-28] MEDS ORDERED: RESP: ALBUTEROL 2.5 MG/IPRATROPIUM 0.5 MG NEB (SCH) INH ONE (05:00)
--- NOTE | 2017-12-28 05:02 | PD ---
HPI Chief Complaint: shortness of breath Time Seen by Provider: 04:55 Travel History International Travel<30 days: No Contact w/Intl Traveler<30days: No Traveled to known affect area: No History of Present Illness HPI The patient is a 72-year-old male who presents to the emergency department via EMS from [facility] for shortness of breath. The patient states he is recently in the hospital for similar symptoms. The patient was discharged home is not followed up with his primary physician or hi teacher. The patient's primary physician is Dr. Julian Hartman. The patient cannot recall the name of his hi teacher. The patient states her last several weeks he has had increasing shortness of breath which has progressed over the last 2 days. He complains of orthopnea as well as exertional shortness of breath. The patient does have a history of sleep apnea, however, was not using his seat machine earlier tonight. He does note increasing edema to the feet, ankles, lower extremities bilateral over the last several days. The patient's symptoms are moderate, worse with lying supine and with exertion. He denies any chest pain, nausea, vomiting, or abdominal pain. PFSH Past Medical History Hx Anticoagulant Therapy: Yes Arthritis: Yes Blood Disorders: No Anxiety: Yes Depression: Yes Heart Rhythm Problems: Yes Cancer: No Cardiac Catheterization: Yes Cardiovascular Problems: Yes High Cholesterol: Yes Chest Pain: No Cerebrovascular Accident: Yes Diabetes: Yes Diminished Hearing: Yes ([place]) Endocrine: Yes Gastrointestinal Disorders: No GERD: Yes Glaucoma: No Genitourinary: No (Claims to have kidney issues - not a good historion , can't remember ) Hepatitis: No Hiatal Hernia: No Hypertension: Yes Immune Disorder: No Implanted Vascular Access Dvce: No Musculoskeletal: No Neurologic: No Psychiatric: Yes Reproductive: No Respiratory: Yes (sleep apnea) Integumentary: No Myocardial Infarction: Yes Shingles: Yes Thyroid Disease: Yes Past Surgical History Abdominal Surgery: Yes Cardiac Surgery: Yes (ABLATION) Cholecystectomy: Yes Eye Surgery: Yes (L CATARACT) Genitourinary Surgery: Yes Other Surgery: Yes Social History Alcohol Use: No Tobacco Use: No Substance Use: No Allergies-Medications (Allergen,Severity, Reaction): Coded Allergies: penicillin G (Unverified Allergy, Severe, Hives, 12/28/17) *MDRO Multi-Drug Resistant Organism (Unverified Allergy, Unknown, 12/28/17) MRSA 2010, 2013 Reported Meds & Prescriptions Reported Meds & Active Scripts Active Lantus Inj (Insulin Glargine) 1,000 Unit/10 Ml Vial 12 Units SQ BID 30 Days Diltiazem CD 24 HR 240 Mg Caper 240 Mg PO DAILY Amiodarone (Amiodarone HCl) 200 Mg Tab 200 Mg PO DAILY Eliquis (Apixaban) 5 Mg Tab 5 Mg PO BID Reported Buspirone (Buspirone HCl) 5 Mg Tab Unknown Dose PO TID Niacinamide 500 Mg Tab 500 Mg PO DAILY Novolog Inj (Insulin Aspart) 1,000 Unit/10 Ml Vial 0 SQ DIRECTED Sliding Scale as directed. Hydrocodone-Acetaminophen 7.5 Mg-325 Mg Tab 1 Tab PO Q6H PRN [Testosterone] Fish Oil + D3 (Fish Oil-Cholecalciferol) 1,200-1,000 Mg-Unit Cap 1 Cap PO DAILY Pramipexole (Pramipexole Dihydrochloride) 0.5 Mg Tab 0.5 Mg PO HS Atorvastatin (Atorvastatin Calcium) 40 Mg Tab 40 Mg PO HS Sertraline (Sertraline HCl) 50 Mg Tab 50 Mg PO BID Prilosec (Omeprazole Magnesium) 20 Mg Tab 20 Mg PO DAILY Levothyroxine (Levothyroxine Sodium) 125 Mcg Tab 125 Mcg PO DAILY Bethanechol 25 Mg Tab 25 Mg PO DAILY Doxazosin (Doxazosin Mesylate) 4 Mg Tab 4 Mg PO HS Allopurinol 100 Mg Tab 100 Mg PO DAILY Ramipril 5 Mg Cap 5 Mg PO DAILY Review of Systems Except as stated in HPI: all other systems reviewed are Neg General / Constitutional: No: Fever HENT: No: Lightheadedness Cardiovascular: Positive: Dyspnea on exertion, No: Chest Pain or Discomfort, Diaphoresis Respiratory: Positive: Cough, Shortness of Breath Gastrointestinal: No: Nausea, Vomiting, Abdominal Pain Musculoskeletal: Positive: Weakness, Edema Physical Exam Narrative GENERAL: Awake, alert, 72-year-old male appears his stated age and appears short of breath. He is only able speak in 2-3 word sentences. SKIN: Focused skin assessment warm/dry. HEAD: Atraumatic. Normocephalic. EYES: No injection or drainage. ENT: No nasal bleeding or discharge. Mucous membranes pink and moist. NECK: Trachea midline. No JVD. CARDIOVASCULAR: Regular, tachycardic with a heart rate of approximately 110. RESPIRATORY: Tachypnea with a respiratory rate of 32. Scattered wheezes. GASTROINTESTINAL: Abdomen soft, obese, few scattered areas of old appearing ecchymosis. MUSCULOSKELETAL: Bilateral lower extremity pitting edema from the feet to the knees. NEUROLOGICAL: Awake and alert. No obvious cranial nerve deficits. Motor grossly within normal limits. Normal speech. Nonfocal. PSYCHIATRIC: Appropriate mood and affect; insight and judgment normal. Data Data Last Documented VS Vital Signs Date Time Temp Pulse Resp B/P (MAP) Pulse Ox O2 Delivery O2 Flow Rate FiO2 12/28/17 05:04 94 BiPAP 12/28/17 05:04 45 12/28/17 04:55 98.8 67 22 126/81 (96) Orders Orders Complete Blood Count With Diff (12/28/17 04:57) Comprehensive Metabolic Panel (12/28/17 04:57) B-Type Natriuretic Peptide (12/28/17 04:57) Act Partial Throm Time (Ptt) (12/28/17 04:57) Prothrombin Time / Inr (Pt) (12/28/17 04:57) Magnesium (Mg) (12/28/17 04:57) Ckmb (Isoenzyme) Profile (12/28/17 04:57) Troponin I (12/28/17 04:57) Iv Access Insert/Monitor (12/28/17 04:57) Ecg Monitoring (12/28/17 04:57) Oximetry (12/28/17 04:57) Oxygen Administration (12/28/17 04:57) Chest, Single Ap (12/28/17 04:57) Sodium Chloride 0.9% Flush (Ns Flush) (12/28/17 05:00) Albuterol-Ipratropium Neb (Duoneb Neb) (12/28/17 05:00) Furosemide Inj (Lasix Inj) (12/28/17 05:00) Resp Bipap / Cpap Non Invas Vt (12/28/17 04:57) CKMB (12/28/17 05:15) CKMB% (12/28/17 05:15) Aspirin Chew (Aspirin Chew) (12/28/17 06:30) Potassium, Serum (K) (12/28/17 09:45) Insulin Human Regular Inj (Novolin R Inj (12/28/17 07:00) Dextrose 50% In Kaity (Vial) Inj (D50w (Vi (12/28/17 06:45) Sodium Bicarbonate 8.4% Inj (Sodium Bica (12/28/17 06:45) Sodium Polysty Sulfate Liq (Kayexalate L (12/28/17 06:45) Admit Order (Ed Use Only) (12/28/17 06:47) Labs Laboratory Tests Test 12/28/17 05:15 White Blood Count 6.6 TH/MM3 Red Blood Count 4.07 MIL/MM3 Hemoglobin 10.9 GM/DL Hematocrit 33.9 % Mean Corpuscular Volume 83.2 FL Mean Corpuscular Hemoglobin 26.7 PG Mean Corpuscular Hemoglobin Concent 32.0 % Red Cell Distribution Width 20.4 % Platelet Count 157 TH/MM3 Mean Platelet Volume 9.7 FL Neutrophils (%) (Auto) 78.3 % Lymphocytes (%) (Auto) 12.5 % Monocytes (%) (Auto) 8.3 % Eosinophils (%) (Auto) 0.3 % Basophils (%) (Auto) 0.6 % Neutrophils # (Auto) 5.2 TH/MM3 Lymphocytes # (Auto) 0.8 TH/MM3 Monocytes # (Auto) 0.6 TH/MM3 Eosinophils # (Auto) 0.0 TH/MM3 Basophils # (Auto) 0.0 TH/MM3 CBC Comment DIFF FINAL Differential Comment Prothrombin Time 12.5 SEC Prothromb Time International Ratio 1.2 RATIO Activated Partial Thromboplast Time 28.6 SEC Blood Urea Nitrogen 49 MG/DL Creatinine 2.84 MG/DL Random Glucose 191 MG/DL Total Protein 6.8 GM/DL Albumin 3.2 GM/DL Calcium Level 8.2 MG/DL Magnesium Level 2.8 MG/DL Alkaline Phosphatase 119 U/L Aspartate Amino Transf (AST/SGOT) 36 U/L Alanine Aminotransferase (ALT/SGPT) 50 U/L Total Bilirubin 0.5 MG/DL Sodium Level 143 MEQ/L Potassium Level 6.2 MEQ/L Chloride Level 112 MEQ/L Carbon Dioxide Level 20.4 MEQ/L Anion Gap 11 MEQ/L Estimat Glomerular Filtration Rate 22 ML/MIN Total Creatine Kinase 107 U/L Creatine Kinase MB 2.8 NG/ML Troponin I 0.06 NG/ML MDM Medical Decision Making Medical Screen Exam Complete: Yes Emergency Medical Condition: Yes Medical Record Reviewed: Yes Interpretation(s) EKG reveals right bundle branch block, rate 114. Possible ectopic atrial tachycardia, rhythm appears regular but no visible P waves. Chest x-ray reveals increasing bilateral hazy opacity most characteristic of pulmonary edema. Laboratory Tests Test 12/28/17 05:15 White Blood Count 6.6 TH/MM3 Red Blood Count 4.07 MIL/MM3 Hemoglobin 10.9 GM/DL Hematocrit 33.9 % Mean Corpuscular Volume 83.2 FL Mean Corpuscular Hemoglobin 26.7 PG Mean Corpuscular Hemoglobin Concent 32.0 % Red Cell Distribution Width 20.4 % Platelet Count 157 TH/MM3 Mean Platelet Volume 9.7 FL Neutrophils (%) (Auto) 78.3 % Lymphocytes (%) (Auto) 12.5 % Monocytes (%) (Auto) 8.3 % Eosinophils (%) (Auto) 0.3 % Basophils (%) (Auto) 0.6 % Neutrophils # (Auto) 5.2 TH/MM3 Lymphocytes # (Auto) 0.8 TH/MM3 Monocytes # (Auto) 0.6 TH/MM3 Eosinophils # (Auto) 0.0 TH/MM3 Basophils # (Auto) 0.0 TH/MM3 CBC Comment DIFF FINAL Differential Comment Prothrombin Time 12.5 SEC Prothromb Time International Ratio 1.2 RATIO Activated Partial Thromboplast Time 28.6 SEC Blood Urea Nitrogen 49 MG/DL Creatinine 2.84 MG/DL Random Glucose 191 MG/DL Total Protein 6.8 GM/DL Albumin 3.2 GM/DL Calcium Level 8.2 MG/DL Magnesium Level 2.8 MG/DL Alkaline Phosphatase 119 U/L Aspartate Amino Transf (AST/SGOT) 36 U/L Alanine Aminotransferase (ALT/SGPT) 50 U/L Total Bilirubin 0.5 MG/DL Sodium Level 143 MEQ/L Potassium Level 6.2 MEQ/L Chloride Level 112 MEQ/L Carbon Dioxide Level 20.4 MEQ/L Anion Gap 11 MEQ/L Estimat Glomerular Filtration Rate 22 ML/MIN Total Creatine Kinase 107 U/L Troponin I 0.06 NG/ML Differential Diagnosis Differential diagnosis includes congestive heart failure, pulmonary edema, pleural effusion, pneumonia, pulmonary embolism, arrhythmia, COPD, bronchitis, cardiomyopathy. Narrative Course IV was established, labs are drawn and sent, the patient was placed on cardiac telemetry monitoring and continuous pulse oximetry monitoring. EKG was ordered and interpreted. The patient was placed on BiPAP secondary to his shortness of breath and administered one DuoNeb. Chest x-ray reveals increasing bilateral hazy capacity most characteristic of pulmonary edema. Troponin is elevated 0.06 , however, creatinine is elevated at 2.85 secondary to chronic kidney disease patient has previous elevated troponins. May be troponin leak secondary to congestive heart failure. The patient did receive Lasix 60 mg intravenously. The patient's respiratory rate did improve on BiPAP, went from the 30s to the 20s, it appears the patient has acute congestive heart failure with pulmonary edema. The patient's potassium was 6.2 with no evidence of hemolysis, therefore , the patient received insulin, D50, bicarbonate, and Kayexalate. The [facility] [employer]. Critical Care Narrative Aggregate critical care time was 40 minutes. Time to perform other separately billable procedures was not included in the critical care time. My time did not include minutes spent treating any other patients simultaneously or on activities that did not directly contribute to the patient's treatment. The services I provided to this patient were to treat and/or prevent clinically significant deterioration that could result in: Anoxia, hypoxia, pulmonary edema , arrhythmia. I provided critical care services requiring my management, as noted below: Chart data review, documentation time, medication orders and management, vital sign assessments/reviewing monitor data, ordering and reviewing lab tests, ordering and interpreting/reviewing x-rays and diagnostic studies, care of the patient and discussion of the patient with the admitting physicians. Physician Communication Physician Communication [facility] I discussed the patient with Dr. Almonte who agrees with admission. Diagnosis Primary Impression: Congestive heart failure Qualified Codes: I50.9 - Heart failure, unspecified Additional Impressions: Chronic kidney disease, stage III (moderate) Elevated troponin Hyperkalemia Admitting Information Admitting Physician Requests: Admit Condition: Stable Bhanu Vasquez MD Dec 28, 2017 05:02
[2017-12-28 05:53] LABS: AUTOMATED NEUTROPHIL # 5.2 TH/MM3 (1.8-7.7); BASOPHIL % 0.6 % (0.0-2.0); EOSINOPHIL % 0.3 % (0.0-4.0); HEMATOCRIT 33.9 % (39.0-51.0); HEMOGLOBIN 10.9 GM/DL (13.0-17.0); LYMPH % 12.5 % (9.0-44.0); LYMPHOCYTE # 0.8 TH/MM3 (1.0-4.8); MEAN CELL VOLUME 83.2 FL (80.0-100.0); MEAN CORPUSCULAR HEMOGLOBIN 26.7 PG (27.0-34.0); MEAN PLATELET VOLUME 9.7 FL (7.0-11.0); MONO % 8.3 % (0.0-8.0); MONOCYTE # 0.6 TH/MM3 (0-0.9); NEUT % 78.3 % (16.0-70.0); PLATELET COUNT 157 TH/MM3 (150-450); RED BLOOD COUNT 4.07 MIL/MM3 (4.50-5.90); RED CELL DISTRIBUTION WIDTH 20.4 % (11.6-17.2); WHITE BLOOD COUNT 6.6 TH/MM3 (4.0-11.0)
[2017-12-28 06:20] LABS: ALBUMIN 3.2 GM/DL (3.4-5.0); ALT (GPT) 50 U/L (12-78); AST (GOT) 36 U/L (15-37); BICARBONATE 20.4 MEQ/L (21.0-32.0); BLOOD UREA NITROGEN 49 MG/DL (7-18); CALCIUM 8.2 MG/DL (8.5-10.1); CHLORIDE 112 MEQ/L (98-107); CREATININE 2.84 MG/DL (0.60-1.30); GLOMERULAR FILTRATION RATE 22 ML/MIN (>89); GLUCOSE,RANDOM 191 MG/DL (74-106); MAGNESIUM 2.8 MG/DL (1.5-2.5); SODIUM (NA) 143 MEQ/L (136-145)
[2017-12-28 06:22] LABS: INTERNATIONAL NORMALIZED RATIO 1.2 RATIO; PROTHROMBIN TIME - PATIENT 12.5 SEC (9.8-11.6)
[2017-12-28 06:25] LABS: ALKALINE PHOSPHATASE 119 U/L (45-117); TOTAL BILIRUBIN ADULT 0.5 MG/DL (0.2-1.0); TOTAL PROTEIN 6.8 GM/DL (6.4-8.2); TROPONIN I 0.06 NG/ML (0.02-0.05)
--- NOTE | 2017-12-28 06:29 | RADRPT ---
EXAM DATE/TIME: 12/28/2017 05:27 [facility] COMPARISON: CHEST SINGLE AP, December 02, 2017, 18:30. INDICATIONS : Shortness of breath. MEDICAL HISTORY : Diabetes mellitus type II. Hypertension Congestive heart failure. SURGICAL HISTORY : Cholecystectomy. Ablation ENCOUNTER: Initial ACUITY: 1 day PAIN SCORE: 0/10 LOCATION: Bilateral chest FINDINGS: A single AP erect view of the chest was obtained and demonstrates an interval increase in the perihil ar and bibasilar opacities. There is no distinct effusion. The heart size is moderately enlarged. The bony thorax is stable in appearance with overlying electrocardiogram leads. CONCLUSION: Increasing bilateral hazy opacity most characteristic of pulmonary edema. John Neville MD on December 28, 2017 at 6:24 Board Certified Radiologist. This report was verified electronically.
[2017-12-28] MEDS ORDERED: ASPIRIN 81 MG CHEW TAB CHEW ONE (06:30)
[2017-12-28] MEDS ORDERED: DEXTROSE 50% IN WATER 50 ML VIAL(D50) IV PUSH ONE (06:45)
[2017-12-28] MEDS ORDERED: SODIUM POLYSTYRENE SULFONATE SUSP 15 GM/60 ML CUP PO ONE (06:45)
[2017-12-28] MEDS ORDERED: SODIUM BICARBONATE 8.4% SOLN 50 MEQ/50 ML VIAL SLOW IVP ONE (06:45)
[2017-12-28] MEDS ORDERED: GLUCAGON 1 MG/ML VIAL OTHER PRN (07:00)
[2017-12-28] MEDS ORDERED: ACETAMINOPHEN/HYDROcodone 325 MG/5 MG TAB PO PRN (07:00)
[2017-12-28] MEDS ORDERED: INSULIN HUMAN REGULAR 1,000 UNITS/10 ML VIAL IV PUSH ONE (07:00)
[2017-12-28] MEDS ORDERED: ONDANSETRON HCL 4 MG/2 ML VIAL IVP PRN (07:00)
[2017-12-28] MEDS ORDERED: ACETAMINOPHEN 325 MG TAB PO PRN (07:00)
[2017-12-28] MEDS ORDERED: LACTULOSE SYRUP 20 GM/30 ML CUP PO PRN (07:00)
[2017-12-28] MEDS ORDERED: MAGNESIUM HYDROXIDE SUSP 30 ML CUP PO PRN (07:00)
[2017-12-28] MEDS: LEVOTHYROXINE SODIUM 125 MCG TAB PO SCH (07:00)
[2017-12-28] MEDS ORDERED: SENNOSIDES 8.6 MG TAB PO PRN (07:00)
[2017-12-28] MEDS ORDERED: DEXTROSE 50% IN WATER 50 ML VIAL(D50) IV PUSH PRN (07:00)
[2017-12-28] MEDS ORDERED: BISACODYL 10 MG SUPP RECTAL PRN (07:00)
[2017-12-28] MEDS: INSULIN ASPART SUPPLEMENTAL SCALE SQ SCH ×3 (08:00→20:08)
[2017-12-28] MEDS: INSULIN DETEMIR 100 UNITS/ML VIAL SQ SCH ×2 (09:00→20:07)
[2017-12-28] MEDS: AMIODARONE 200 MG TAB PO SCH (09:28)
[2017-12-28] MEDS: APIXABAN 5 MG TABLET PO SCH ×2 (09:28→20:06)
[2017-12-28] MEDS: DILTIAZEM-CD 240 MG CAP ER PO SCH (09:29)
[2017-12-28] MEDS: DOCUSATE SODIUM 50 MG/SENNA 8.6 MG TAB PO SCH ×2 (09:29→20:07)
[2017-12-28] MEDS: SERTRALINE HCL 50 MG TAB PO SCH ×2 (09:29→20:07)
[2017-12-28] MEDS: PANTOPRAZOLE SOD 20 MG DELAYED RELEASE TAB PO SCH (09:29)
[2017-12-28] MEDS: SODIUM CHLORIDE 0.9% FLUSH 10 ML FLUSH IV FLUSH SCH ×2 (09:31→20:07)
--- NOTE | 2017-12-28 10:33 | HHI.HP ---
HPI Service [facility] Primary Care Physician Julian Hartman MD Admission Diagnosis congestive heart failure, hyperkalemia, elevated troponin Diagnoses: Chief Complaint: Shortness of breath Travel History International Travel<30 Days: No Contact w/Intl Traveler <30 Da: No Traveled to Known Affected Are: No Review of Systems Constitutional: COMPLAINS OF: Fatigue, Weight gain Respiratory: COMPLAINS OF: Shortness of breath Cardiovascular: COMPLAINS OF: Dyspnea on Exertion, Lower Extremity Edema, Orthopnea, DENIES: Chest pain Except as stated in HPI: all other systems reviewed are Neg Past Family Social History Past Medical History Hypertension Type 2 diabetes Atrial fibrillation status post ablation on 11/10/17, cardioversion on 12/21 Sleep apnea Chronic kidney disease TIA Hypothyroidism CHF Past Surgical History Cholecystectomy Allergies: Coded Allergies: penicillin G (Unverified Allergy, Severe, Hives, 12/28/17) *MDRO Multi-Drug Resistant Organism (Unverified Allergy, Unknown, 12/28/17) MRSA 2010, 2013 Family History Reviewed and is noncontributory. Social History Patient denies tobacco, alcohol, or illicit drug use. Physical Exam Vital Signs Vital Signs Date Time Temp Pulse Resp B/P (MAP) Pulse Ox O2 Delivery O2 Flow Rate FiO2 12/28/17 08:00 97 Nasal Cannula 4.00 12/28/17 07:15 94 Nasal Cannula 4.00 12/28/17 06:50 95 Nasal Cannula 4.00 12/28/17 06:48 95 Nasal Cannula 4.00 12/28/17 05:04 94 BiPAP 12/28/17 05:04 97 BiPAP 45 12/28/17 05:00 95 45 12/28/17 05:00 95 BiPAP 45 12/28/17 04:55 98.8 67 22 126/81 (96) 99 Physical Exam GENERAL: Morbidly obese male in mild respiratory distress with long sentences. SKIN: No rashes, ecchymoses or lesions. Cool and dry. HEAD: Atraumatic. Normocephalic. No temporal or scalp tenderness. EYES: Pupils equal round and reactive. Extraocular motions intact. No scleral icterus. No injection or drainage. ENT: Nose without bleeding, purulent drainage or septal hematoma. Throat without erythema, tonsillar hypertrophy or exudate. Uvula midline. Airway patent. NECK: Trachea midline. No JVD or lymphadenopathy. Supple, nontender, no meningeal signs. CARDIOVASCULAR: Regular rate and rhythm without murmurs, gallops, or rubs. Bilateral lower extremity with 2+ edema RESPIRATORY: Bilateral basilar crackles. Upper lung hernández are clear to auscultation. GASTROINTESTINAL: Abdomen morbidly obese, distended, per patient this is his baseline. Nontender. No guarding MUSCULOSKELETAL: 2+ bilateral lower extremity edema. NEUROLOGICAL: Awake and alert. Cranial nerves II through XII intact. Motor and sensory grossly within normal limits. Five out of 5 muscle strength in all muscle groups. Normal speech. Laboratory Laboratory Tests Test 12/28/17 05:15 White Blood Count 6.6 Red Blood Count 4.07 Hemoglobin 10.9 Hematocrit 33.9 Mean Corpuscular Volume 83.2 Mean Corpuscular Hemoglobin 26.7 Mean Corpuscular Hemoglobin Concent 32.0 Red Cell Distribution Width 20.4 Platelet Count 157 Mean Platelet Volume 9.7 Neutrophils (%) (Auto) 78.3 Lymphocytes (%) (Auto) 12.5 Monocytes (%) (Auto) 8.3 Eosinophils (%) (Auto) 0.3 Basophils (%) (Auto) 0.6 Neutrophils # (Auto) 5.2 Lymphocytes # (Auto) 0.8 Monocytes # (Auto) 0.6 Eosinophils # (Auto) 0.0 Basophils # (Auto) 0.0 CBC Comment DIFF FINAL Differential Comment Prothrombin Time 12.5 Prothromb Time International Ratio 1.2 Activated Partial Thromboplast Time 28.6 Blood Urea Nitrogen 49 Creatinine 2.84 Random Glucose 191 Total Protein 6.8 Albumin 3.2 Calcium Level 8.2 Magnesium Level 2.8 Alkaline Phosphatase 119 Aspartate Amino Transf (AST/SGOT) 36 Alanine Aminotransferase (ALT/SGPT) 50 Total Bilirubin 0.5 Sodium Level 143 Potassium Level 6.2 Chloride Level 112 Carbon Dioxide Level 20.4 Anion Gap 11 Estimat Glomerular Filtration Rate 22 Total Creatine Kinase 107 Creatine Kinase MB 2.8 Troponin I 0.06 B-Type Natriuretic Peptide 1350 Result Diagram: 12/28/17 0515 12/28/1715 Caprini VTE Risk Assessment Caprini VTE Risk Assessment: Mod/High Risk (score >= 2) Caprini Risk Assessment Model Point Value = 1 Point Value = 2 Point Value = 3 Point Value = 5 Age 41-60 Minor surgery BMI > 25 kg/m2 Swollen legs Varicose veins or History of unexplained or recurrent spontaneous Oral contraceptives or hormone replacement Sepsis (< 1 month) Serious lung disease, including pneumonia (< 1 month) Abnormal pulmonary function Acute myocardial infarction Congestive heart failure (< 1 month) History of inflammatory bowel disease Medical patient at bed rest Age 61-74 Arthroscopic surgery Major open surgery (> 45 min) Laparoscopic surgery (> 45 min) Malignancy Confined to bed (> 72 hours) Immobilizing plaster cast Central venous access Age >= 75 History of VTE Family history of VTE Factor V Leiden Prothrombin [id number] Lupus anticoagulant Anticardiolipin antibodies Elevated serum homocysteine Heparin-induced thrombocytopenia Other congenital or acquired thrombophilia Stroke (< 1 month) Elective arthroplasty Hip, pelvis, or leg fracture Acute spinal cord injury (< 1 month) Prophylaxis Regimen Total Risk Factor Score Risk Level Prophylaxis Regimen 0-1 Low Early ambulation 2 Moderate Order ONE of the following: *Sequential Compression Device (SCD) *Heparin 5000 units SQ BID 3-4 Higher Order ONE of the following medications: *Heparin 5000 units SQ TID *Enoxaparin/Lovenox 40 mg SQ daily (WT < 150 kg, CrCl > 30 mL/min) *Enoxaparin/Lovenox 30 mg SQ daily (WT < 150 kg, CrCl > 10-29 mL/min) *Enoxaparin/Lovenox 30 mg SQ BID (WT < 150 kg, CrCl > 30 mL/min) AND/OR *Sequential Compression Device (SCD) 5 or more Highest Order ONE of the following medications: *Heparin 5000 units SQ TID (Preferred with Epidurals) *Enoxaparin/Lovenox 40 mg SQ daily (WT < 150 kg, CrCl > 30 mL/min) *Enoxaparin/Lovenox 30 mg SQ daily (WT < 150 kg, CrCl > 10-29 mL/min) *Enoxaparin/Lovenox 30 mg SQ BID (WT < 150 kg, CrCl > 30 mL/min) AND *Sequential Compression Device (SCD) Assessment and Plan Problem List: (1) Acute on chronic systolic CHF (congestive heart failure) ICD Code: I50.23 - Acute on chronic systolic (congestive) heart failure Plan: BNP 1300. Chest x-ray personally reviewed showing pulmonary edema. Suspect dietary and fluid indiscretion. Patient admits to drinking a lot of fluid and he does not watch what he eats. -Continue IV Lasix twice daily - 2D echocardiogram about 4 months ago showing LVEF of 45-50% - Patient with recent ablation and cardioversion. - Consult cardiology -Hold MANJIT inhibitor for now. At risk for recurrent atrial fibrillation, continue amiodarone, Cardizem (2) PAF (paroxysmal atrial fibrillation) ICD Code: I48.0 - Paroxysmal atrial fibrillation Plan: On amiodarone, Cardizem, and Eliquis. (3) CKD (chronic kidney disease) stage 3, GFR 30-59 ml/min ICD Code: N18.3 - Chronic kidney disease, stage 3 (moderate) Plan: Stable continue to monitor. Mild hyperkalemia status post treatment, follow-up BMP. (4) Hypothyroidism ICD Code: E03.9 - Hypothyroidism Status: Acute Plan: Continue Synthroid (5) Diabetes ICD Code: E11.9 - Diabetes Status: Acute Plan: Sliding scale insulin with Accu-Cheks. Levemir twice daily. (6) Hyperkalemia ICD Code: E87.5 - Hyperkalemia Status: Acute Physician Certification 2 Midnight Certification Type: Admission for Inpatient Services Order for Inpatient Services The services are ordered in accordance with Medicare regulations or non- Medicare payer requirements, as applicable. In the case of services not specified as inpatient-only, they are appropriately provided as inpatient services in accordance with the 2-midnight benchmark. Estimated LOS (days): 3 days is the estimated time the patient will need to remain in the hospital, assuming treatment plan goals are met and no additional complications. Post-Hospital Plan: Not yet determined Maynor Combs MD Dec 28, 2017 10:33
[2017-12-28 15:50] LABS: BICARBONATE 22.3 MEQ/L (21.0-32.0); CALCIUM 8.4 MG/DL (8.5-10.1); CREATININE 2.94 MG/DL (0.60-1.30)
[2017-12-28 15:54] LABS: TROPONIN I 0.08 NG/ML (0.02-0.05)
[2017-12-28] MEDS ORDERED: FUROSEMIDE 20 MG/2 ML VIAL IV PUSH SCH (18:00)
[2017-12-28] MEDS: FUROSEMIDE 20 MG/2 ML VIAL IV PUSH SCH (18:23)
--- NOTE | 2017-12-28 19:41 | EKG ---
Date Performed: 12/28/2017 Time Performed: 04:52:29 PTAGE: 72 years EKG: ECTOPIC ATRIAL TACHYCARDIA WITH FIRST DEGREE AV BLOCK LEFT ATRIAL ENLARGEMENT RIGHT BUNDLE BRANCH BLOCK Since the previous tracing, no significant change noted ABNORMAL ECG PREVIOUS TRACING : 12/05/2017 20.09 DOCTOR: Ruben Meredith Interpretating Date/Time 12/28/2017 19:40:32
[2017-12-28] MEDS: ACETAMINOPHEN/HYDROcodone 325 MG/10 MG TAB PO PRN (20:06)
[2017-12-28] MEDS: ATORVASTATIN 40 MG TAB PO SCH (20:06)
[2017-12-28] MEDS: DOXAZOSIN MESYLATE 4 MG TAB PO SCH (20:07)
[2017-12-28] MEDS: PRAMIPEXOLE DIHYDROCHLORIDE 0.25 MG TAB PO SCH (20:09)
[2017-12-28] MEDS: RESP: LEVALBUTEROL HYDROCHLORIDE 1.25 MG/3 ML NEB (SCH) NEB (23:26)
[2017-12-29] VITALS (29 sets, daily range): BP systolic 83–123; BP diastolic 70–88; PULSE 69–128; RESP 20–26; TEMP 97.7–98.7; O2SAT 93–96
[2017-12-29] MEDS: RESP: LEVALBUTEROL HYDROCHLORIDE 1.25 MG/3 ML NEB (SCH) NEB ×4 (00:50→23:13)
[2017-12-29] MEDS: LEVOTHYROXINE SODIUM 125 MCG TAB PO SCH (05:54)
[2017-12-29] MEDS: ACETAMINOPHEN/HYDROcodone 325 MG/10 MG TAB PO PRN ×3 (05:56→21:19)
[2017-12-29 07:55] LABS: AUTOMATED NEUTROPHIL # 4.3 TH/MM3 (1.8-7.7); BASOPHIL % 0.2 % (0.0-2.0); EOSINOPHIL % 0.2 % (0.0-4.0); HEMOGLOBIN 10.1 GM/DL (13.0-17.0); LYMPH % 14.7 % (9.0-44.0); LYMPHOCYTE # 0.9 TH/MM3 (1.0-4.8); MEAN CELL VOLUME 83.6 FL (80.0-100.0); MEAN CORPUSCULAR HEMOGLOBIN 26.4 PG (27.0-34.0); MEAN CORPUSCULAR HGB CONC 31.6 % (32.0-36.0); MONOCYTE # 0.6 TH/MM3 (0-0.9); NEUT % 74.9 % (16.0-70.0); PLATELET COUNT 155 TH/MM3 (150-450); RED BLOOD COUNT 3.83 MIL/MM3 (4.50-5.90); RED CELL DISTRIBUTION WIDTH 20.7 % (11.6-17.2); WHITE BLOOD COUNT 5.8 TH/MM3 (4.0-11.0)
[2017-12-29] MEDS: INSULIN ASPART SUPPLEMENTAL SCALE SQ SCH ×4 (08:00→21:00)
[2017-12-29 08:22] LABS: ALBUMIN 3.1 GM/DL (3.4-5.0); ALKALINE PHOSPHATASE 117 U/L (45-117); ALT (GPT) 58 U/L (12-78); AST (GOT) 43 U/L (15-37); BICARBONATE 22.1 MEQ/L (21.0-32.0); BLOOD UREA NITROGEN 62 MG/DL (7-18); CALCIUM 8.5 MG/DL (8.5-10.1); CHLORIDE 108 MEQ/L (98-107); CREATININE 3.23 MG/DL (0.60-1.30); GLOMERULAR FILTRATION RATE 19 ML/MIN (>89); GLUCOSE,RANDOM 186 MG/DL (74-106); SODIUM (NA) 141 MEQ/L (136-145); TOTAL BILIRUBIN ADULT 0.6 MG/DL (0.2-1.0); TOTAL PROTEIN 6.5 GM/DL (6.4-8.2)
[2017-12-29] MEDS: APIXABAN 5 MG TABLET PO SCH (08:26)
[2017-12-29] MEDS: PANTOPRAZOLE SOD 20 MG DELAYED RELEASE TAB PO SCH (08:26)
[2017-12-29] MEDS: DILTIAZEM-CD 240 MG CAP ER PO SCH (08:26)
[2017-12-29] MEDS: DOCUSATE SODIUM 50 MG/SENNA 8.6 MG TAB PO SCH ×2 (08:26→21:18)
[2017-12-29] MEDS: SERTRALINE HCL 50 MG TAB PO SCH ×2 (08:26→21:18)
[2017-12-29] MEDS: AMIODARONE 200 MG TAB PO SCH (08:26)
[2017-12-29] MEDS: SODIUM CHLORIDE 0.9% FLUSH 10 ML FLUSH IV FLUSH SCH ×2 (08:27→21:17)
[2017-12-29] MEDS: FUROSEMIDE 20 MG/2 ML VIAL IV PUSH SCH (08:27)
[2017-12-29] MEDS: INSULIN DETEMIR 100 UNITS/ML VIAL SQ SCH ×2 (08:35→21:00)
--- NOTE | 2017-12-29 10:28 | MB ---
cc: Abhi Garcia MD,Julian Ramirez,Ajit Combs,Maynor STEPHEN DATE: 12/29/2017 REASON FOR CONSULTATION: Shortness of breath. HISTORY OF PRESENT ILLNESS: Mr. Otto is a 72-year-old gentleman with a history of congestive heart failure, atrial fibrillation, previous ablation in October 2017, cardioversion last month admitted to the emergency room due to shortness of breath and heart failure. BNP over 1300, but having also hyperkalemia. I was consulted for evaluation and management. The chart was reviewed. The patient was evaluated. ALLERGIES: PENICILLIN. SOCIAL HISTORY: Negative for smoking and drinking. FAMILY HISTORY: Noncontributory to his current medical condition. MEDICATIONS: Currently, he is on Lasix. He is on Reglan and Protonix. He is on Mirapex. He is on Zoloft. He is on amiodarone. He is on Eliquis, atorvastatin, Cardizem-CD and Cardura. REVIEW OF SYSTEMS: Refers shortness of breath on minimal activity, but no chest pain or chest discomfort. PHYSICAL EXAM: GENERAL: Alert, fully oriented. VITAL SIGNS: Blood pressure is 127/87, pulse around 123, respiratory rate 18. LUNGS: Ventilated. CARDIOVASCULAR: S1, S2, irregular, tachycardic. ABDOMEN: Soft, obese. No mass. EXTREMITIES: Edema +1. ELECTROCARDIOGRAM: Possible left atrial tachyarrhythmia with rapid ventricular response. LABS: Hemoglobin is 10.1, white blood cell 5.8. INR 1.2. Potassium is 5.3, creatinine 3.23, troponin 0.07. ASSESSMENT AND RECOMMENDATIONS: Mr. Otto has an ejection fractional of 40% last echo. He has a high heart rate. Shortness of breath on minimal activity. He was cardioverted the last time and he is back again in atrial tachyarrhythmia. He has renal insufficiency. I am going to discontinue the Lasix. The Eliquis will be modified because of the renal function. This gentleman definitely will need another ablation. The case discussed with him. Most of the time, his shortness of breath is due to the tachyarrhythmia. BNP is only 1300. At this point, I am going to modify the mentioned before Eliquis to 2-1/2 mg a day because of the renal insufficiency and the clearance of the Eliquis is going to be longer. The patient will need at least 48 hours of Eliquis before any procedure. In the meantime, support will be harder to be controlled. He is on multiple medications already. I will closely monitor him during hospitalization. Abhi Garcia MD HS/DL , 09:57 AM , 10:27 AM
--- NOTE | 2017-12-29 12:16 | HHI.PR ---
Subjective Remarks Patient reports persistent shortness of breath. He is tachycardic. Has been seen by cardiology. Objective Vitals Vital Signs Date Time Temp Pulse Resp B/P (MAP) Pulse Ox O2 Delivery O2 Flow Rate FiO2 12/29/17 09:56 96 Nasal Cannula 4.00 12/29/17 08:30 95 Nasal Cannula 4.00 12/29/17 08:30 97.7 69 24 111/86 (94) 95 12/29/17 06:00 119 12/29/17 05:00 121 12/29/17 04:00 98.7 123 22 122/87 (99) 95 12/29/17 04:00 Nasal Cannula 4.00 12/29/17 04:00 123 12/29/17 03:00 116 12/29/17 02:00 118 12/29/17 01:00 115 12/29/17 00:00 Nasal Cannula 4.00 12/29/17 00:00 119 12/29/17 00:00 98.2 119 22 123/84 (97) 93 12/28/17 23:26 93 Nasal Cannula 4.00 12/28/17 23:00 117 12/28/17 22:00 112 12/28/17 21:00 116 12/28/17 20:00 110 12/28/17 20:00 98.4 110 22 110/77 (88) 96 12/28/17 20:00 Nasal Cannula 4.00 12/28/17 16:25 12/28/17 14:24 108 22 135/73 (93) 96 Nasal Cannula 4.00 12/28/17 12:32 109 23 155/118 (130) 95 Nasal Cannula 4.00 I/O 12/28/17 12/28/17 12/28/17 12/29/17 12/29/17 12/29/17 06:59 14:59 22:59 06:59 14:59 22:59 Intake Total 240 ml Output Total 900 ml Balance -660 ml Intake Oral 240 ml Output Urine Total 900 ml # Voids 1 # Bowel Movements 1 Result Diagram: 12/29/1772712/29/17727 Objective Remarks GENERAL: Morbidly obese male in mild respiratory distress with long sentences. CARDIOVASCULAR: Rate around 110 and regular rhythm without murmurs, gallops, or rubs. Bilateral lower extremity with 2+ edema RESPIRATORY: Bilateral basilar crackles. Upper lung hernández are clear to auscultation. GASTROINTESTINAL: Abdomen morbidly obese, distended, per patient this is his baseline. Nontender. No guarding MUSCULOSKELETAL: 2+ bilateral lower extremity edema. NEUROLOGICAL: Awake and alert. Normal speech. A/P Problem List: (1) Acute on chronic systolic CHF (congestive heart failure) ICD Code: I50.23 - Acute on chronic systolic (congestive) heart failure Plan: BNP 1300. Chest x-ray personally reviewed showing pulmonary edema. Tachyarrhythmia per cardiology. Patient will need repeat ablation. Suspect dietary and fluid indiscretion contributing. Patient admits to drinking a lot of fluid and he does not watch what he eats. - IV Lasix discontinued per cardiology. - 2D echocardiogram about 4 months ago showing LVEF of 45-50% -Hold MANJIT inhibitor for now. At risk for recurrent atrial fibrillation, continue amiodarone, Cardizem (2) PAF (paroxysmal atrial fibrillation) ICD Code: I48.0 - Paroxysmal atrial fibrillation Plan: On amiodarone, Cardizem. Eliquis on hold for planned repeat ablation (3) CKD (chronic kidney disease) stage 3, GFR 30-59 ml/min ICD Code: N18.3 - Chronic kidney disease, stage 3 (moderate) Plan: Worsening. Consult nephrology for assistance. (4) Hypothyroidism ICD Code: E03.9 - Hypothyroidism Status: Acute Plan: Continue Synthroid (5) Diabetes ICD Code: E11.9 - Diabetes Status: Acute Plan: Sliding scale insulin with Accu-Cheks. Levemir twice daily. (6) Hyperkalemia ICD Code: E87.5 - Hyperkalemia Status: Acute Maynor Combs MD Dec 29, 2017 12:16
--- NOTE | 2017-12-29 17:59 | PD.CONS ---
HPI Service Nephrology Consult Requested By Dr. 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 Review of Systems Constitutional: COMPLAINS OF: Fatigue Ears, nose, mouth, throat: COMPLAINS OF: Epistaxis Respiratory: COMPLAINS OF: Shortness of breath Cardiovascular: COMPLAINS OF: Dyspnea on Exertion, Lower Extremity Edema, Orthopnea Musculoskeletal: COMPLAINS OF: Joint pain, Muscle aches, Back pain Neurologic: COMPLAINS OF: Abnormal gait Psychiatric: COMPLAINS OF: Anxiety, Confusion Past Family Social History Allergies: Coded Allergies: penicillin G (Unverified Allergy, Severe, Hives, 12/28/17) *MDRO Multi-Drug Resistant Organism (Unverified Allergy, Unknown, 12/28/17) MRSA 2010, 2013 Past Medical History Hypertension Type 2 diabetes Atrial fibrillation status post ablation on 11/10/17, cardioversion on 12/21 Sleep apnea Chronic kidney disease TIA Hypothyroidism CHF Past Surgical History Cholecystectomy Cardiac ablation Cardioversion Left eye cataract Reported Medications Reported Meds & Active Scripts Active Lantus Inj (Insulin Glargine) 1,000 Unit/10 Ml Vial 12 Units SQ BID 30 Days Diltiazem CD 24 HR 240 Mg Caper 240 Mg PO DAILY Amiodarone (Amiodarone HCl) 200 Mg Tab 200 Mg PO DAILY Eliquis (Apixaban) 5 Mg Tab 5 Mg PO BID Reported Buspirone (Buspirone HCl) 5 Mg Tab Unknown Dose PO TID Niacinamide 500 Mg Tab 500 Mg PO DAILY Novolog Inj (Insulin Aspart) 1,000 Unit/10 Ml Vial 0 SQ DIRECTED Sliding Scale as directed. Hydrocodone-Acetaminophen 7.5 Mg-325 Mg Tab 1 Tab PO Q6H PRN [Testosterone] Fish Oil + D3 (Fish Oil-Cholecalciferol) 1,200-1,000 Mg-Unit Cap 1 Cap PO DAILY Pramipexole (Pramipexole Dihydrochloride) 0.5 Mg Tab 0.5 Mg PO HS Atorvastatin (Atorvastatin Calcium) 40 Mg Tab 40 Mg PO HS Sertraline (Sertraline HCl) 50 Mg Tab 50 Mg PO BID Prilosec (Omeprazole Magnesium) 20 Mg Tab 20 Mg PO DAILY Levothyroxine (Levothyroxine Sodium) 125 Mcg Tab 125 Mcg PO DAILY Bethanechol 25 Mg Tab 25 Mg PO DAILY Doxazosin (Doxazosin Mesylate) 4 Mg Tab 4 Mg PO HS Allopurinol 100 Mg Tab 100 Mg PO DAILY Ramipril 5 Mg Cap 5 Mg PO DAILY Active Ordered Medications Current Medications Medications (Trade) Dose Ordered Sig/Az Route Start Time Stop Time Status Last Admin (D50w (Vial) Inj) 50 ml UNSCH PRN IV PUSH 12/28/17 07:00 (Glucagon Inj) 1 mg UNSCH PRN OTHER 12/28/17 07:00 (NovoLOG SUPPLEMENTAL SCALE) 1 ACHS SLIDING SCALE SQ 12/28/17 08:00 12/29/17 12:00 (NS Flush) 2 ml UNSCH PRN IV FLUSH 12/28/17 07:00 (NS Flush) 2 ml BID IV FLUSH 12/28/17 09:00 12/29/17 08:27 (Zofran Inj) 4 mg Q6H PRN IVP 12/28/17 07:00 (Tylenol) 650 mg Q6H PRN PO 12/28/17 07:00 ([place] 5-325 Mg) 1 tab Q4H PRN PO 12/28/17 07:00 ([place] 10-325 Mg) 1 tab Q4H PRN PO 12/28/17 07:00 12/29/17 13:11 (Delaney-Colace) 1 tab BID PO 12/28/17 09:00 12/29/17 08:26 (Milk Of Magnesia Liq) 30 ml Q12H PRN PO 12/28/17 07:00 (Senokot) 17.2 mg Q12H PRN PO 12/28/17 07:00 (Dulcolax Supp) 10 mg DAILY PRN RECTAL 12/28/17 07:00 (Lactulose Liq) 30 ml DAILY PRN PO 12/28/17 07:00 (Cordarone) 200 mg DAILY PO 12/28/17 09:00 12/29/17 08:26 (Lipitor) 40 mg HS PO 12/28/17 21:00 12/28/17 20:06 (Cardizem Cd) 240 mg DAILY PO 12/28/17 09:00 12/29/17 08:26 (Cardura) 4 mg HS PO 12/28/17 21:00 12/28/17 20:07 (Levemir Inj) 12 units BID SQ 12/28/17 09:00 12/29/17 08:35 (Synthroid) 125 mcg DAILY@0600 PO 12/28/17 07:00 12/29/17 05:54 (Zoloft) 50 mg BID PO 12/28/17 09:00 12/29/17 08:26 (Protonix) 20 mg DAILY PO 12/28/17 09:00 12/29/17 08:26 (Mirapex) 0.5 mg HS PO 12/28/17 21:00 (Xopenex Neb) 1.25 mg Q8HR NEB NEB 12/28/17 22:20 12/29/17 10:51 Family History Noncontributory Social History Denies smoking or alcohol use Physical Exam Vital Signs Vital Signs Date Time Temp Pulse Resp B/P (MAP) Pulse Ox O2 Delivery O2 Flow Rate FiO2 12/29/17 15:30 98.0 117 20 83/70 (74) 96 12/29/17 14:01 124 12/29/17 13:00 124 12/29/17 12:00 124 12/29/17 11:45 98.1 126 26 100/72 (81) 96 12/29/17 11:00 125 12/29/17 10:00 126 12/29/17 09:56 96 Nasal Cannula 4.00 12/29/17 09:00 122 12/29/17 08:30 95 Nasal Cannula 4.00 12/29/17 08:30 97.7 69 24 111/86 (94) 95 12/29/17 08:00 122 12/29/17 07:00 123 12/29/17 06:00 119 12/29/17 05:00 121 12/29/17 04:00 98.7 123 22 122/87 (99) 95 12/29/17 04:00 Nasal Cannula 4.00 12/29/17 04:00 123 12/29/17 03:00 116 12/29/17 02:00 118 12/29/17 01:00 115 12/29/17 00:00 Nasal Cannula 4.00 12/29/17 00:00 119 12/29/17 00:00 98.2 119 22 123/84 (97) 93 12/28/17 23:26 93 Nasal Cannula 4.00 12/28/17 23:00 117 12/28/17 22:00 112 12/28/17 21:00 116 12/28/17 20:00 110 12/28/17 20:00 98.4 110 22 110/77 (88) 96 12/28/17 20:00 Nasal Cannula 4.00 Physical Exam GENERAL: Well-nourished, well-developed patient. SKIN: Warm and dry. HEAD: Normocephalic. EYES: No scleral icterus. No injection or drainage. NECK: Supple, trachea midline. No JVD or lymphadenopathy. CARDIOVASCULAR: Irregularly irregular tachycardic. RESPIRATORY: Breath sounds diminished at bases. GASTROINTESTINAL: Abdomen soft, non-tender, nondistended. EXTREMITIES: No cyanosis, 2+ edema. NEUROLOGICAL: Awake, alert, confused Laboratory Laboratory Tests Test 12/28/17 22:35 12/28/17 23:38 12/29/17 07:28 Blood Gas Puncture Site RT RADIAL Blood Gas Patient Temperature 98.6 Blood Gas HCO3 21 Blood Gas Base Excess -3.9 Blood Gas Oxygen Saturation 92 Arterial Blood pH 7.36 Arterial Blood Partial Pressure CO2 38 Arterial Blood Partial Pressure O2 80 Arterial Blood Oxygen Content 13.5 Arterial Blood Carboxyhemoglobin 1.0 Arterial Blood Methemoglobin 1.2 Blood Gas Hemoglobin 10.3 Oxygen Delivery Device NASAL CANNULA Blood Gas Liter Flow 4 Blood Gas Inspired Oxygen 36 Troponin I 0.07 White Blood Count 5.8 Red Blood Count 3.83 Hemoglobin 10.1 Hematocrit 32.0 Mean Corpuscular Volume 83.6 Mean Corpuscular Hemoglobin 26.4 Mean Corpuscular Hemoglobin Concent 31.6 Red Cell Distribution Width 20.7 Platelet Count 155 Mean Platelet Volume 9.0 Neutrophils (%) (Auto) 74.9 Lymphocytes (%) (Auto) 14.7 Monocytes (%) (Auto) 10.0 Eosinophils (%) (Auto) 0.2 Basophils (%) (Auto) 0.2 Neutrophils # (Auto) 4.3 Lymphocytes # (Auto) 0.9 Monocytes # (Auto) 0.6 Eosinophils # (Auto) 0.0 Basophils # (Auto) 0.0 CBC Comment DIFF FINAL Differential Comment Blood Urea Nitrogen 62 Creatinine 3.23 Random Glucose 186 Total Protein 6.5 Albumin 3.1 Calcium Level 8.5 Alkaline Phosphatase 117 Aspartate Amino Transf (AST/SGOT) 43 Alanine Aminotransferase (ALT/SGPT) 58 Total Bilirubin 0.6 Sodium Level 141 Potassium Level 5.3 Chloride Level 108 Carbon Dioxide Level 22.1 Anion Gap 11 Estimat Glomerular Filtration Rate 19 Thyroid Stimulating Hormone 3rd Gen 3.060 Result Diagram: 12/29/17 0728 12/29/17 0728 Imaging Last Impressions Chest X-Ray 12/28/17 0457 Signed Impressions: Service Date/Time: Thursday, December 28, 2017 05:27 - CONCLUSION: Increasing bilateral hazy opacity most characteristic of pulmonary edema. John Neville MD Assessment and Plan Problem List: (1) Acute renal failure ICD Codes: N17.9 - Acute kidney failure, unspecified Plan: Patient has cardiogenic shock and low blood pressure contributing, and cardiorenal syndrome he was given Lasix but due to low blood pressure this was discontinued Plan is to cardiovert him once he is stable on Eliquis He has underlying tachyarrhythmia Atrial fibrillation/atrial tachycardia Monitor and wait for final plans for cardiology Follow BMP (2) Chronic kidney disease, stage III (moderate) ICD Codes: N18.3 - Chronic kidney disease, stage III (moderate) Status: Acute Plan: Baseline care around 1.7 (3) Congestive heart failure ICD Codes: I50.9 - Heart failure, unspecified Status: Acute Plan: He is in cardiogenic shock low blood pressure causing the cardiorenal syndrome (4) PAF (paroxysmal atrial fibrillation) ICD Codes: I48.0 - Paroxysmal atrial fibrillation Plan: Cardiology was following (5) Diabetes ICD Codes: E11.9 - Diabetes Status: Chronic Plan: Monitor blood glucose (6) Acute on chronic systolic CHF (congestive heart failure) ICD Codes: I50.23 - Acute on chronic systolic (congestive) heart failure Problem Qualifiers (1) Congestive heart failure: Qualified Codes: I50.9 - Heart failure, unspecified Susan Solo MD Dec 29, 2017 17:59
[2017-12-29] MEDS: ATORVASTATIN 40 MG TAB PO SCH (21:18)
[2017-12-29] MEDS: PRAMIPEXOLE DIHYDROCHLORIDE 0.25 MG TAB PO SCH (21:18)
[2017-12-29] MEDS: DOXAZOSIN MESYLATE 4 MG TAB PO SCH (21:18)
[2017-12-30] VITALS (29 sets, daily range): BP systolic 104–131; BP diastolic 51–94; PULSE 98–126; RESP 22; TEMP 97–98.3; O2SAT 95–96
--- NOTE | 2017-12-30 00:29 | EKG ---
Date Performed: 12/28/2017 Time Performed: 14:48:47 PTAGE: 72 years EKG: SUPRAVENTRICULAR TACHYCARDIA RIGHT BUNDLE BRANCH BLOCK LEFT POSTERIOR FASCICULAR BLOCK ABNO RMAL ECG PREVIOUS TRACING : 12/28/2017 14.48 DOCTOR: Abhi Garcia Interpretating Date/Time 12/30/2017 00:15:33
[2017-12-30] MEDS: LEVOTHYROXINE SODIUM 125 MCG TAB PO SCH (05:47)
[2017-12-30] MEDS: RESP: LEVALBUTEROL HYDROCHLORIDE 1.25 MG/3 ML NEB (SCH) NEB ×3 (07:31→23:00)
[2017-12-30] MEDS: INSULIN DETEMIR 100 UNITS/ML VIAL SQ SCH ×2 (09:00→21:00)
[2017-12-30] MEDS: INSULIN ASPART SUPPLEMENTAL SCALE SQ SCH ×4 (09:00→21:00)
[2017-12-30] MEDS: SERTRALINE HCL 50 MG TAB PO SCH ×2 (09:15→21:37)
[2017-12-30] MEDS: DOCUSATE SODIUM 50 MG/SENNA 8.6 MG TAB PO SCH ×2 (09:16→21:36)
[2017-12-30] MEDS: AMIODARONE 200 MG TAB PO SCH (09:16)
[2017-12-30] MEDS: ACETAMINOPHEN/HYDROcodone 325 MG/10 MG TAB PO PRN ×2 (09:16→21:38)
[2017-12-30] MEDS: PANTOPRAZOLE SOD 20 MG DELAYED RELEASE TAB PO SCH (09:16)
[2017-12-30] MEDS: DILTIAZEM-CD 240 MG CAP ER PO SCH (09:16)
[2017-12-30] MEDS: SODIUM CHLORIDE 0.9% FLUSH 10 ML FLUSH IV FLUSH SCH ×2 (09:17→21:36)
--- NOTE | 2017-12-30 11:39 | HHI.PR ---
Subjective Remarks Patient continues to get short of breath with minimal activities. He denies chest pressure. Objective Vitals Vital Signs Date Time Temp Pulse Resp B/P (MAP) Pulse Ox O2 Delivery O2 Flow Rate FiO2 12/30/17 11:30 96 Nasal Cannula 4.00 12/30/17 11:30 97.2 126 22 114/73 (87) 96 12/30/17 11:30 120 12/30/17 10:03 22 12/30/17 10:02 123 12/30/17 10:00 122 12/30/17 09:46 123 12/30/17 09:00 122 12/30/17 08:00 97.0 124 22 120/84 (96) 95 12/30/17 08:00 95 Nasal Cannula 4.00 12/30/17 08:00 119 12/30/17 08:00 120 12/30/17 07:31 95 Nasal Cannula 4.00 12/30/17 07:00 118 12/30/17 06:00 123 12/30/17 05:00 109 12/30/17 04:00 108 12/30/17 03:30 97.8 126 22 131/94 (106) 95 12/30/17 03:00 102 12/30/17 02:00 109 12/30/17 01:00 98 12/30/17 00:00 101 12/29/17 23:30 98.1 98 20 115/88 (97) 95 12/29/17 23:00 106 12/29/17 22:00 102 12/29/17 21:00 124 12/29/17 20:00 97.8 118 20 108/82 (91) 96 12/29/17 20:00 96 Nasal Cannula 4.00 12/29/17 20:00 112 12/29/17 19:00 126 12/29/17 18:01 126 12/29/17 17:00 124 12/29/17 16:00 126 12/29/17 15:30 98.0 117 20 83/70 (74) 96 12/29/17 15:00 128 12/29/17 14:01 124 12/29/17 13:00 124 12/29/17 12:00 124 12/29/17 11:45 98.1 126 26 100/72 (81) 96 I/O 3/26/12/29/17 12/29/17 12/30/17 12/30/17 12/30/17 07:00 15:00 23:00 07:00 15:00 23:00 Intake Total 240 ml 720 ml 480 ml Output Total 900 ml 500 ml 300 ml Balance -660 ml 220 ml 180 ml Intake Oral 240 ml 720 ml 480 ml Output Urine Total 900 ml 500 ml 300 ml # Bowel Movements 1 0 0 Result Diagram: 12/29/1772712/29/17727 Objective Remarks GENERAL: Morbidly obese male in mild respiratory distress with long sentences. CARDIOVASCULAR: Rate around 110 and regular rhythm without murmurs, gallops, or rubs. Bilateral lower extremity with 2+ edema RESPIRATORY: Bilateral basilar crackles. Upper lung heránndez are clear to auscultation. GASTROINTESTINAL: Abdomen morbidly obese, distended, per patient this is his baseline. Nontender. No guarding MUSCULOSKELETAL: 2+ bilateral lower extremity edema. NEUROLOGICAL: Awake and alert. Normal speech. A/P Problem List: (1) Acute on chronic systolic CHF (congestive heart failure) ICD Code: I50.23 - Acute on chronic systolic (congestive) heart failure Plan: BNP 1300. Chest x-ray personally reviewed showing pulmonary edema. Tachyarrhythmia per cardiology. Patient will need repeat ablation. Suspect dietary and fluid indiscretion contributing. Patient admits to drinking a lot of fluid and he does not watch what he eats. - IV Lasix discontinued per cardiology. - 2D echocardiogram about 4 months ago showing LVEF of 45-50% -Hold MANJIT inhibitor for now. At risk for recurrent atrial fibrillation, continue amiodarone, Cardizem (2) PAF (paroxysmal atrial fibrillation) ICD Code: I48.0 - Paroxysmal atrial fibrillation Plan: On amiodarone, Cardizem. Eliquis on hold for planned repeat ablation (3) Acute kidney injury superimposed on chronic kidney disease ICD Code: N17.9 - Acute kidney failure, unspecified; N18.9 - Chronic kidney disease, unspecified Plan: Cardiorenal. Appreciate nephrology following. (4) Hypothyroidism ICD Code: E03.9 - Hypothyroidism Status: Acute Plan: Continue Synthroid (5) Diabetes ICD Code: E11.9 - Diabetes Status: Chronic Plan: Sliding scale insulin with Accu-Cheks. Levemir twice daily. (6) Hyperkalemia ICD Code: E87.5 - Hyperkalemia Status: Acute Discharge Planning Awaiting for Eliquis to wear off for ablation with Cardiology. Maynor Combs MD Dec 30, 2017 11:39
--- NOTE | 2017-12-30 13:35 | HHI.NPPN ---
Subjective History of Present Illness 72 year old male with Chf/Atrial tachycardia/Afib admitted with Tachyarrhythmia Review of Systems General Constitutional: Fatigue Objective Data Data Vital Signs Date Time Temp Pulse Resp B/P (MAP) Pulse Ox O2 Delivery O2 Flow Rate FiO2 12/30/17 13:02 121 12/30/17 12:23 120 12/30/17 11:30 96 Nasal Cannula 4.00 12/30/17 11:30 97.2 126 22 114/73 (87) 96 12/30/17 11:30 120 12/30/17 10:03 22 12/30/17 10:02 123 12/30/17 10:00 122 12/30/17 09:46 123 12/30/17 09:00 122 12/30/17 08:00 97.0 124 22 120/84 (96) 95 12/30/17 08:00 95 Nasal Cannula 4.00 12/30/17 08:00 119 12/30/17 08:00 120 12/30/17 07:31 95 Nasal Cannula 4.00 12/30/17 07:00 118 12/30/17 06:00 123 12/30/17 05:00 109 12/30/17 04:00 108 12/30/17 03:30 97.8 126 22 131/94 (106) 95 12/30/17 03:00 102 12/30/17 02:00 109 12/30/17 01:00 98 12/30/17 00:00 101 12/29/17 23:30 98.1 98 20 115/88 (97) 95 12/29/17 23:00 106 12/29/17 22:00 102 12/29/17 21:00 124 12/29/17 20:00 97.8 118 20 108/82 (91) 96 12/29/17 20:00 96 Nasal Cannula 4.00 12/29/17 20:00 112 12/29/17 19:00 126 12/29/17 18:01 126 12/29/17 17:00 124 12/29/17 16:00 126 12/29/17 15:30 98.0 117 20 83/70 (74) 96 12/29/17 15:00 128 12/29/17 14:01 124 -: 12/29/17 0728 12/29/17 0728 Physical Exam General Appearance: Well Developed, Well Nourished Neck Neck Exam: Neck Supple Pulmonary Resp Exam: Decreased Bases Cardiology CV Exam: Tachycardia Gastrointestinal/Abdomen GI Exam: Soft, Non-Tender, Bowel Sounds Present Extremeties Extremities Exam: Moderate Edema Neurologic Neuro Exam: Alert, Awake Assessment/Plan Problem List: (1) Acute renal failure ICD Codes: N17.9 - Acute kidney failure, unspecified Plan: Patient has cardiogenic shock and low blood pressure contributing, and cardiorenal syndrome he was given Lasix but due to low blood pressure this was discontinued Plan is to cardiovert him once he is stable on Eliquis He has underlying tachyarrhythmia Atrial fibrillation/atrial tachycardia Monitor and wait for final plans for cardiology Creatinine rising, give Albumin follow BMP (2) Chronic kidney disease, stage III (moderate) ICD Codes: N18.3 - Chronic kidney disease, stage III (moderate) Status: Acute Plan: Baseline care around 1.7 (3) Congestive heart failure ICD Codes: I50.9 - Heart failure, unspecified Status: Acute Plan: He is in cardiogenic shock low blood pressure causing the cardiorenal syndrome (4) PAF (paroxysmal atrial fibrillation) ICD Codes: I48.0 - Paroxysmal atrial fibrillation Plan: Cardiology was following (5) Diabetes ICD Codes: E11.9 - Diabetes Status: Chronic Plan: Monitor blood glucose (6) Acute on chronic systolic CHF (congestive heart failure) ICD Codes: I50.23 - Acute on chronic systolic (congestive) heart failure Problem Qualifiers (1) Congestive heart failure: Qualified Codes: I50.9 - Heart failure, unspecified Susan Solo MD Dec 30, 2017 13:35
[2017-12-30] MEDS: ALBUMIN 25% INJ 100 ML IV SCH (14:20)
[2017-12-30 14:41] LABS: AUTOMATED NEUTROPHIL # 4.5 TH/MM3 (1.8-7.7); BASOPHIL % 0.3 % (0.0-2.0); EOSINOPHIL % 0.3 % (0.0-4.0); HEMATOCRIT 32.5 % (39.0-51.0); HEMOGLOBIN 10.3 GM/DL (13.0-17.0); LYMPH % 14.4 % (9.0-44.0); LYMPHOCYTE # 0.9 TH/MM3 (1.0-4.8); MEAN CELL VOLUME 83.5 FL (80.0-100.0); MEAN CORPUSCULAR HEMOGLOBIN 26.4 PG (27.0-34.0); MEAN CORPUSCULAR HGB CONC 31.6 % (32.0-36.0); MEAN PLATELET VOLUME 9.4 FL (7.0-11.0); MONO % 8.7 % (0.0-8.0); MONOCYTE # 0.5 TH/MM3 (0-0.9); NEUT % 76.3 % (16.0-70.0); PLATELET COUNT 154 TH/MM3 (150-450); RED BLOOD COUNT 3.89 MIL/MM3 (4.50-5.90); RED CELL DISTRIBUTION WIDTH 20.9 % (11.6-17.2); WHITE BLOOD COUNT 5.9 TH/MM3 (4.0-11.0)
[2017-12-30 15:04] LABS: BICARBONATE 21.7 MEQ/L (21.0-32.0); CALCIUM 8.5 MG/DL (8.5-10.1); CREATININE 3.33 MG/DL (0.60-1.30); MAGNESIUM 2.7 MG/DL (1.5-2.5); PHOSPHORUS 5.7 MG/DL (2.5-4.9)
[2017-12-30] MEDS: ATORVASTATIN 40 MG TAB PO SCH (21:37)
[2017-12-30] MEDS: DOXAZOSIN MESYLATE 4 MG TAB PO SCH (21:37)
[2017-12-30] MEDS: PRAMIPEXOLE DIHYDROCHLORIDE 0.25 MG TAB PO SCH (21:37)
[2017-12-31] VITALS (17 sets, daily range): BP systolic 105–136; BP diastolic 59–93; PULSE 67–123; RESP 16–28; TEMP 97.6–98; O2SAT 93–100
[2017-12-31] MEDS: ALBUMIN 25% INJ 100 ML IV SCH ×2 (02:12→13:08)
[2017-12-31] MEDS: LEVOTHYROXINE SODIUM 125 MCG TAB PO SCH (05:20)
[2017-12-31] MEDS ORDERED: RESP: ALBUTEROL 2.5 MG/IPRATROPIUM 0.5 MG NEB (SCH) NEB ONE (06:15)
--- NOTE | 2017-12-31 06:16 | RADRPT ---
EXAM DATE/TIME: 12/31/2017 05:55 [facility] COMPARISON: CHEST SINGLE AP, December 28, 2017, 5:27. INDICATIONS : Short of breath. MEDICAL HISTORY : Diabetes mellitus type II. Hypertension Congestive heart failure. SURGICAL HISTORY : Cholecystectomy. Ablation ENCOUNTER: Subsequent ACUITY: 3 days PAIN SCORE: 0/10 LOCATION: Bilateral chest FINDINGS: A single view of the chest demonstrates bibasilar hazy densities and small right pleural effusion. Ca rdiomegaly. Osseous structures are intact. CONCLUSION: Bibasilar hazy densities and small right pleural effusion. Robin Quigley MD on December 31, 2017 at 6:13 Board Certified Radiologist. This report was verified electronically.
[2017-12-31 07:43] LABS: HEMATOCRIT 31.4 % (39.0-51.0); HEMOGLOBIN 9.8 GM/DL (13.0-17.0); MEAN CORPUSCULAR HEMOGLOBIN 26.3 PG (27.0-34.0); MEAN CORPUSCULAR HGB CONC 31.3 % (32.0-36.0); MEAN PLATELET VOLUME 9.4 FL (7.0-11.0); PLATELET COUNT 142 TH/MM3 (150-450); RED BLOOD COUNT 3.74 MIL/MM3 (4.50-5.90); RED CELL DISTRIBUTION WIDTH 20.4 % (11.6-17.2); WHITE BLOOD COUNT 5.7 TH/MM3 (4.0-11.0)
[2017-12-31] MEDS: RESP: LEVALBUTEROL HYDROCHLORIDE 1.25 MG/3 ML NEB (SCH) NEB ×2 (08:00→16:00)
[2017-12-31 08:12] LABS: BICARBONATE 20.1 MEQ/L (21.0-32.0); CALCIUM 8.4 MG/DL (8.5-10.1); CREATININE 3.47 MG/DL (0.60-1.30); PHOSPHORUS 6.7 MG/DL (2.5-4.9)
[2017-12-31] MEDS: INSULIN ASPART SUPPLEMENTAL SCALE SQ SCH ×3 (10:05→16:29)
[2017-12-31] MEDS: AMIODARONE 200 MG TAB PO SCH (10:06)
[2017-12-31] MEDS: DILTIAZEM-CD 240 MG CAP ER PO SCH (10:06)
[2017-12-31] MEDS: PANTOPRAZOLE SOD 20 MG DELAYED RELEASE TAB PO SCH (10:06)
[2017-12-31] MEDS: SERTRALINE HCL 50 MG TAB PO SCH ×2 (10:06→23:00)
[2017-12-31] MEDS: DOCUSATE SODIUM 50 MG/SENNA 8.6 MG TAB PO SCH ×2 (10:06→23:00)
[2017-12-31] MEDS: INSULIN DETEMIR 100 UNITS/ML VIAL SQ SCH ×2 (10:10→23:00)
[2017-12-31] MEDS: SODIUM CHLORIDE 0.9% FLUSH 10 ML FLUSH IV FLUSH SCH ×2 (10:15→23:00)
[2017-12-31] MEDS ORDERED: LIDOCAINE HCL 1% PF 5 ML SYRINGE OTHER ONE (12:00)
[2017-12-31] MEDS ORDERED: PHENYLEPHRINE HCL 10 MG/ML VIAL IV ONE (12:00)
[2017-12-31] MEDS ORDERED: PHENYLEPH/NS 1000 MCG/10 ML SYR IV ONE (12:00)
[2017-12-31] MEDS ORDERED: SODIUM CHLORID 0.9% 500 ML INJ 1,000 ML IV ONE (12:00)
[2017-12-31] MEDS ORDERED: ROCURONIUM INJ 50 MG/5 ML SYRINGE IV PUSH ONE (12:00)
[2017-12-31] MEDS ORDERED: PROPOFOL 200 MG/20 ML AMP IV ONE (12:00)
[2017-12-31] MEDS ORDERED: ceFAZolin INJ 1,000 MG VIAL IV ONE (12:00)
[2017-12-31] MEDS ORDERED: VECURONIUM BROMIDE 20 MG VIAL IV ONE (12:00)
[2017-12-31] MEDS ORDERED: ePHEDrine/NS 25 MG/5 ML SYRINGE IV ONE (12:00)
[2017-12-31] MEDS: SODIUM CHLORIDE 0.9% FLUSH 10 ML FLUSH IV FLUSH PRN (13:08)
--- NOTE | 2017-12-31 13:21 | HHI.PR ---
Subjective Remarks Patient reports his shortness of breath about the same. He denies chest pain. Rate still uncontrolled. Objective Vitals Vital Signs Date Time Temp Pulse Resp B/P (MAP) Pulse Ox O2 Delivery O2 Flow Rate FiO2 12/31/17 08:52 94 4.50 12/31/17 07:30 97.6 120 28 124/85 (98) 94 12/31/17 07:30 96 Nasal Cannula 4.00 12/31/17 07:30 120 12/31/17 06:29 96 Nasal Cannula 4.50 12/31/17 06:00 119 12/31/17 05:00 118 12/31/17 04:00 118 12/31/17 03:30 97.7 116 20 129/80 (96) 93 12/31/17 03:30 93 Nasal Cannula 4.00 12/31/17 03:00 116 12/31/17 02:00 117 12/31/17 01:00 116 12/31/17 00:00 116 12/31/17 00:00 96 Nasal Cannula 4.00 12/31/17 00:00 97.6 117 22 117/82 (94) 96 12/30/17 23:00 116 12/30/17 22:00 118 12/30/17 21:00 118 12/30/17 20:00 96 Nasal Cannula 4.00 12/30/17 20:00 120 12/30/17 20:00 98.3 120 22 106/51 (69) 96 12/30/17 19:00 120 12/30/17 18:02 121 12/30/17 17:04 120 12/30/17 16:26 123 12/30/17 15:19 96 Nasal Cannula 4.00 12/30/17 15:19 97.0 122 22 104/81 (89) 96 12/30/17 15:19 121 12/30/17 15:14 96 Nasal Cannula 4.00 12/30/17 14:15 121 I/O 12/30/17 12/30/17 12/30/17 12/31/17 12/31/17 12/31/17 07:00 15:00 23:00 07:00 15:00 23:00 Intake Total 480 ml 460 ml 340 ml Output Total 300 ml 300 ml 300 ml Balance 180 ml 160 ml 40 ml Intake Oral 480 ml 360 ml 240 ml IV Total 100 ml 100 ml Output Urine Total 300 ml 300 ml 300 ml # Bowel Movements 0 0 0 Result Diagram: 12/31/1750 12/31/17 0650 Objective Remarks GENERAL: Morbidly obese male in mild respiratory distress with long sentences. CARDIOVASCULAR: Rate around 110 and regular rhythm without murmurs, gallops, or rubs. Bilateral lower extremity with 2+ edema RESPIRATORY: Bilateral basilar crackles. Upper lung hernández are clear to auscultation. GASTROINTESTINAL: Abdomen morbidly obese, distended, per patient this is his baseline. Nontender. No guarding MUSCULOSKELETAL: 2+ bilateral lower extremity edema. NEUROLOGICAL: Awake and alert. Normal speech. A/P Problem List: (1) Acute on chronic systolic CHF (congestive heart failure) ICD Code: I50.23 - Acute on chronic systolic (congestive) heart failure Plan: BNP 1300. Chest x-ray personally reviewed showing pulmonary edema. Tachyarrhythmia per cardiology. Patient will need repeat ablation. Suspect dietary and fluid indiscretion contributing. Patient admits to drinking a lot of fluid and he does not watch what he eats. - IV Lasix discontinued per cardiology. - 2D echocardiogram about 4 months ago showing LVEF of 45-50% -Hold MANJIT inhibitor for now. At risk for recurrent atrial fibrillation, continue amiodarone, Cardizem (2) PAF (paroxysmal atrial fibrillation) ICD Code: I48.0 - Paroxysmal atrial fibrillation Plan: Tachyarrhythmia. On amiodarone, Cardizem. Cardiology planning for repeat ablation possibly later today. Eliquis on hold for planned repeat ablation (3) Acute kidney injury superimposed on chronic kidney disease ICD Code: N17.9 - Acute kidney failure, unspecified; N18.9 - Chronic kidney disease, unspecified Plan: Cardiorenal. Worse today. Appreciate nephrology following. (4) Hypothyroidism ICD Code: E03.9 - Hypothyroidism Status: Acute Plan: Continue Synthroid (5) Diabetes ICD Code: E11.9 - Diabetes Status: Chronic Plan: Sliding scale insulin with Accu-Cheks. Levemir twice daily. (6) Hyperkalemia ICD Code: E87.5 - Hyperkalemia Status: Acute Plan: Stable, not improved. Appreciate input from nephrology. Discharge Planning Awaiting for Eliquis to wear off for ablation with Cardiology. Maynor Combs MD Dec 31, 2017 13:21
[2017-12-31] MEDS ORDERED: PATIROMER CALCIUM SORBITEX 8.4 GM PKT PO ONE (14:00)
--- NOTE | 2017-12-31 14:35 | HHI.NPPN ---
Subjective History of Present Illness 72 year old male with Chf/Atrial tachycardia/Afib admitted with Tachyarrhythmia Review of Systems General Constitutional: Fatigue Objective Data Data Vital Signs Date Time Temp Pulse Resp B/P (MAP) Pulse Ox O2 Delivery O2 Flow Rate FiO2 12/31/17 08:52 94 4.50 12/31/17 07:30 97.6 120 28 124/85 (98) 94 12/31/17 07:30 96 Nasal Cannula 4.00 12/31/17 07:30 120 12/31/17 06:29 96 Nasal Cannula 4.50 12/31/17 06:00 119 12/31/17 05:00 118 12/31/17 04:00 118 12/31/17 03:30 97.7 116 20 129/80 (96) 93 12/31/17 03:30 93 Nasal Cannula 4.00 12/31/17 03:00 116 12/31/17 02:00 117 12/31/17 01:00 116 12/31/17 00:00 116 12/31/17 00:00 96 Nasal Cannula 4.00 12/31/17 00:00 97.6 117 22 117/82 (94) 96 12/30/17 23:00 116 12/30/17 22:00 118 12/30/17 21:00 118 12/30/17 20:00 96 Nasal Cannula 4.00 12/30/17 20:00 120 12/30/17 20:00 98.3 120 22 106/51 (69) 96 12/30/17 19:00 120 12/30/17 18:02 121 12/30/17 17:04 120 12/30/17 16:26 123 12/30/17 15:19 96 Nasal Cannula 4.00 12/30/17 15:19 97.0 122 22 104/81 (89) 96 12/30/17 15:19 121 12/30/17 15:14 96 Nasal Cannula 4.00 -: 12/31/17 0650 12/31/17 0650 Physical Exam General Appearance: Well Developed, Well Nourished Neck Neck Exam: Neck Supple Pulmonary Resp Exam: Decreased Bases Cardiology CV Exam: Tachycardia Gastrointestinal/Abdomen GI Exam: Soft, Non-Tender, Bowel Sounds Present Extremeties Extremities Exam: Moderate Edema Neurologic Neuro Exam: Alert, Awake Assessment/Plan Problem List: (1) Acute renal failure ICD Codes: N17.9 - Acute kidney failure, unspecified Plan: Patient has cardiogenic shock and low blood pressure contributing, and cardiorenal syndrome he was given Lasix but due to low blood pressure this was discontinued Plan is to cardiovert him once he is stable on Eliquis He has underlying tachyarrhythmia Atrial fibrillation/atrial tachycardia Monitor and wait for final plans for cardiology Creatinine rising, give Albumin follow BMP [place] 8.4 gm for High K (2) Chronic kidney disease, stage III (moderate) ICD Codes: N18.3 - Chronic kidney disease, stage III (moderate) Status: Acute Plan: Baseline care around 1.7 (3) Congestive heart failure ICD Codes: I50.9 - Heart failure, unspecified Status: Acute Plan: He is in cardiogenic shock low blood pressure causing the cardiorenal syndrome (4) PAF (paroxysmal atrial fibrillation) ICD Codes: I48.0 - Paroxysmal atrial fibrillation Plan: Cardiology was following (5) Diabetes ICD Codes: E11.9 - Diabetes Status: Chronic Plan: Monitor blood glucose (6) Acute on chronic systolic CHF (congestive heart failure) ICD Codes: I50.23 - Acute on chronic systolic (congestive) heart failure Problem Qualifiers (1) Congestive heart failure: Qualified Codes: I50.9 - Heart failure, unspecified Susan Solo MD Dec 31, 2017 14:35
[2017-12-31] MEDS: ACETAMINOPHEN/HYDROcodone 325 MG/10 MG TAB PO PRN (16:29)
[2017-12-31] MEDS ORDERED: ISOPROTERENOL HCL 0.2 MG/ML AMP IV ONE (17:17)
[2017-12-31] MEDS ORDERED: HEPARIN SODIUM - IV 10,000 UNITS/10 ML VIAL ONE ×2 (17:17→17:45)
[2017-12-31] MEDS ORDERED: HEPARIN-NS/PF FLUSH BAG 3,000 ML IV FLUSH ONE (17:45)
[2017-12-31] MEDS ORDERED: LEVOFLOXACIN 500 MG PREMIX INJ 100 ML IV ONE (17:45)
[2017-12-31] MEDS ORDERED: PROTAMINE SULFATE 50 MG/5 ML VIAL ONE ×2 (19:12→19:28)
[2017-12-31] MEDS ORDERED: ATROPINE SULFATE 1 MG/ML VIAL IV PUSH PRN (19:30)
[2017-12-31] MEDS ORDERED: SODIUM CHLOR 0.9% 250 ML INJ 250 ML IV PRN (19:30)
[2017-12-31] MEDS ORDERED: LORazepam 2 MG/ML VIAL IV PUSH PRN (19:30)
[2017-12-31] MEDS ORDERED: LIDOCAINE HCL 1% 50 ML VIAL INFIL PRN (19:30)
[2017-12-31] MEDS ORDERED: oxyCODONE/ACETAMINOPHEN 5 MG/325 MG TAB PO PRN (19:30)
[2017-12-31] MEDS ORDERED: BACITRACIN OINT 0.9 GM PKT TOP ONE (19:30)
[2017-12-31] MEDS ORDERED: SODIUM BICARBONATE 8.4% INJ 50 ML ONE (20:10)
--- NOTE | 2017-12-31 20:15 | CATHPROC ---
[facility] HIS Report Study Information Study Number Admission Scheduled Start Study Start [id number] Dec 28 2017 6:49AM 12/31/2017 Dec 31 2017 5:02PM [facility] Service Electrophysiology Study Admit Source Facility Department Other [facility] - Senior Gis Analyst Physician and Clinical Staff Initial Abhi Yanez Box Sealing Inspector Dani Corea,RT(R) Other Anesthesia, INOCULATOR Recorder Iliana Amador,KELLIE Scrub Shannan Beck RCIS Procedures Performed Procedure Location (Site) Vessel Name Ablation Procedure ICE CATHETER INSERT RA Atruim RF Ablation LT. ATRIUM LT. ATRIUM Equipment Time Carpenter Ship Description Size Mfg Part Number Used/Scraped NEEDLE, TRANSSEPTAL NRG 98 [id number] 17:06 [place] [facility] [facility] C1 *[id number] [employer]/ EP [id number] 17:06 KIT, TRANSDUCER / AFIB Used PACER *[id number] CATHETER, TACTICATH ABLAT BUNDLE 17:06 BUN[facility] Used 65 BUNDLE *[id number] BUNDLE [id number] CATHETER, FR7 OPTIMA SPIRAL 17:06 BUND[facility] FR7 *[id number]- Used BUNDLE BUNDLE [id number] 17:06 BUNDLE-[facility] CATHETER, JSN, QUAD BUNDLE FR 5 *[id number]- Used BUNDLE [id number] 17:06 BUNDLE-[employer] [place]DA CATHETER, JSN, QUAD BUNDLE FR 5 *[id number]- Used BUNDLE [id number] SET, COOL POINT TUBING 17:06 BUNDLE-[facility]EL[facility]DA *[id number]- Used BUNDLE BUNDLE SHEATH, FR8.5 STEERABLE SM 17:06 BUNDLE-[facility]EL[facility]DA 71CM [id number] Used 71CM BUNDLE COVER, TRANSDUCER CABLE 612-113 17:06 [employer] Used ACUNAV *[id number] 17:06 CORDIS/PACER SHEATH, FR10 CHELSEA 11CM FR 10 Used *[id number] 17:06 CORDIS/PACER SHEATH, FR9 CHELSEA 11CM FR 9 [id number] Used [id number] 17:06 [employer] INDUSTRIES PACK, CCL CUSTOM * Used *[id number] 17:06 MEDLINE PACER [place], LIMB * 2530 *[id number] Used [id number] 17:06 [employer] MEDICAL SHEATH, FR4.5 PRELUDE 11CM FR 4.5 Used [id number] 17:06 NAMIC TUBING, HIGH PRESSURE 48" 48" Used *[id number] 17:06 NAMIC TUBING, HIGH PRESSURE 48" 48" Used *[id number] 17:06 [employer] MEDICAL BLANKET,WARM AIR CCL * Used *[id number] 17:06 [facility] MEDICAL ELECTRODE KIT, TWYLA X SURFACE * Used *[id number] 17:06 [facility] MEDICAL SHEATH, EPS, FR6 FAST CATH FR 6 Used *[id number] 17:06 [facility] MEDICAL SHEATH, EPS, FR7 FAST CATH FR 7 [id number] Used [id number] 17:06 [facility] MEDICAL SHEATH, EPS, FR8 FAST CATH FR 8 Used *[id number] [facility] PAD, ELECTROSURGICAL 17:06 * [id number] *[id number] Used SURGICAL GROUNDING (BLUE) History: Allergies Allergy Reaction *MDRO Multi-Drug Resistant Organism penicillin G Hives History: Risk Factors Hypertension Dyslipidemia Yes Yes Cerebrovascular Diabetes Disease Labs Hgb (g/dl) Hct (%) RBC (MIL/MM3) WBC (l/cumm) Platelets (thousands) 11.60-17.00 35.00-51.00 4.00-5.90 4.00-11.00 150.00-450.00 9.0 31 3.7 5.7 142 Glucose (mg/dl) BUN (mg/dl) Creatinine (mg/dl) BUN:Creatinine (1:x) 74.00-106.00 7.00-18.00 0.50-1.30 10.00-20.00 167 84 3.5 24 Na (meq/l) K (meq/l) 136.00-145.00 3.50-5.10 139 5.3 INR (PTT:PT) 0.90-1.10 1.2 Medication Medication Total Dose (Bolus/Oral) Medication Total Dosage/Unit 1% XYLOCAINE 40 mL HEPARIN 30129 units PROTAMINE 60 mg Medications (Bolus/Oral) Medication Time Given Dosage/Unit Administered By Reason 1% XYLOCAINE 12/31/2017 6:19:13 PM 20 mL Abhi Garcia 20 mL 1% XYLOCAINE given in lab by Abhi Garcia in Left Groin via Subcutaneous. 1% XYLOCAINE 12/31/2017 6:23:17 PM 20 mL Abhi Garcia 20 mL 1% XYLOCAINE given in lab by Abhi Garcia in Right Groin via Subcutaneous. HEPARIN 12/31/2017 6:30:00 PM 56123 units Anesthesia, INOCULATOR As per physicians ve rbal order 64524 units HEPARIN given in lab by Anesthesia, INOCULATOR via Peripheral IV. Ordered by Abhi Garcia. [place] son: As per physicians verbal order. HEPARIN 12/31/2017 6:44:39 PM 2000 units Anesthesia, INOCULATOR As per physicians ve rbal order 2000 units HEPARIN given in lab by Anesthesia, INOCULATOR via Peripheral IV. Ordered by Abhi Garcia. Reas on: As per physicians verbal order. PROTAMINE 12/31/2017 7:16:25 PM 40 mg Anesthesia, INOCULATOR As per physicians verb al order 40 mg PROTAMINE given in lab by Anesthesia, INOCULATOR via Peripheral IV. Ordered by Abhi Garcia. Reason: As per physicians verbal order. PROTAMINE 12/31/2017 7:31:34 PM 20 mg Anesthesia, INOCULATOR As per physicians verb al order 20 mg PROTAMINE given in lab by Anesthesia, INOCULATOR via Peripheral IV. Ordered by Abhi Garcia. Reason: As per physicians verbal order. Medication (Drip) Medication Time Given Dosage/Unit Concentration/Unit Diluent (ml) Solution HEPARIN DRIP 12/31/2017 6:45:01 PM 1000 units/hr 21046 units 250 D5W 1000 units/hr HEPARIN DRIP given in lab by Anesthesia, INOCULATOR via Peripheral IV. Pump/Drip Flow = 10 ml /hr [place] [address] units in 250 ml. Ordered by Abhi Garcia. Reason: As per physicians verbal order. LEVAQUIN 12/31/2017 5:53:21 PM 100 mL/hr 500 100 NaCl .9 100 mL/hr LEVAQUIN given by Anesthesia, INOCULATOR via Peripheral IV. Pump/Drip Flow = 0 ml/hr using NaCl . 9 with a concentration of 500 in 100 ml. Ordered by Abhi Garcia. Reason: As per physicians verbal order. Initial Case Assessment Cardiovascular HR Rhythm NIBP Chest Pain 124 af 120/84 0 Edema Present Skin color Skin Mild Normal Warm Circulatory - Right Pulses Dorsalis Pedis 1 Scale (0,1,2,3,4,d) Circulatory - Left Pulses Dorsalis Pedis 1 Scale (0,1,2,3,4,d) Circulatory - Lower Extremities Color Lower Right Color Lower Left Normal Normal Neurological State Oriented to time-place- Lethargic Moves all extremities person Respiration - General Respiration Rate SpO2 (%) O2 (lpm) (B/min) 26 98 6 Chronological Log Time Study Chronological Log 17:27:39 Patient arrived via Bed. 17:27:42 Patient Name, D.O.B, / Armband Verified By R.N. 17:27:45 Consent signed by the physician and the patient and verified by the Senior Gis Analyst staff. 17:27:47 Pre-op and post- op instructions given; patient acknowledges understanding of instructions . 17:27:49 Verbal Stimulation=2 Physical Stimulation=2 Airway=2 Respiration=2 TOTAL=8. (0=absent, 1=l imited, 2=present) 17:27:59 Anesthesia at bedside. Assumes care of patient. 17:29:10 Skin Breakdown- generalized bruising 17:29:15 Patient Warmer Placed on the Table. 17:29:40 Patient has been NPO for More than 6Hrs. 17:30:19 Disposable Defibrillator Pads Placed On Patient. 17:30:24 Titi Prominences Protected 17:30:27 A # 20 IV was noted in the Hand (right). Grade = 0 0.9ns kvo 17:30:30 A # 20 IV was noted in the Wrist (left). Grade = 0 0.9ns kvo 17:30:34 History and physical on the chart or being dictated. Assessment: Initial Case, IT=873 BPM, Rhythm=af, ZUAG=558/84 mmhg, Chest Pain=0, Edema=Mild, Co nina=Normal, Skin = Warm Right Pulses: Freddy Ped=1 Left Pulses: Freddy Ped=1 17:35:57 Lower Right Extremities: Color=Normal Lower Left Extremities: Color=Normal Neurological: State=Lethargic, Ox3, GONSALEZ Respiration: Resp=26 B/min, SpO2=98 %, O2=6 lpm 17:44:07 Anesthesiologist present for intubation. 14 Fr fowler inserted w/o difficulty. Clear yellow urine obtained. 100 mL/hr LEVAQUIN given by Anesthesia, INOCULATOR via Peripheral IV. Pump/Drip Flow = 0 ml/hr using NaCl .9 with a 17:53:21 concentration of 500 in 100 ml. Ordered by Abhi Garcia. Reason: As per physicians verbal orde r. 17:54:32 Bilateral groins prepped with 2% chlorhexidine, and draped after a 3 minute waiting time. 17:59:40 paged 18:03:00 Reference ECG taken 18:12:05 Vascular access was obtained in the Fem Art (left). Time Out. Correct patient, procedure, procedure equipment, site and side verified with physicia n present. Time 18:14:04 concurred by MD, individual staff and INOCULATOR. Time Out #2 - Consents verified, patient in correct position, all results are labled and displa yed, safety precautions 18:14:20 taken, antibiotics administered. Time out concurred by MD, individual staff and INOCULATOR in procedu re 18:14:47 Case Start 18:16:15 Nigel in progress 18:18:19 Nigel complete 18:19:13 20 mL 1% XYLOCAINE given in lab by Abhi Garcia in Left Groin via Subcutaneous. 18:19:52 Vascular access was obtained in the Fem Vein (left). 18:19:54 Vascular access was obtained in the Fem Vein (left). 18:19:54 Vascular access was obtained in the Fem Vein (left). A SHEATH, FR4.5 PRELUDE 11CM FR 4.5 was advanced into the Fem Art (left) using the Modified Jaquelin vale technique. 18:20:46 0.9ns pressure bag connected 18:21:38 A SHEATH, EPS, FR6 FAST CATH FR 6 was advanced into the Fem Vein (left) using the Modified Seldinger technique. 18:21:45 A SHEATH, EPS, FR7 FAST CATH FR 7 was advanced into the Fem Vein (left) using the Modified Seldinger technique. 18:21:47 A SHEATH, FR10 CHELSEA 11CM FR 10 was advanced into the Fem Vein (left) using the Modified S eldinger technique. 18:23:17 20 mL 1% XYLOCAINE given in lab by Abhi Garcia in Right Groin via Subcutaneous. 18:24:24 Vascular access was obtained in the Fem Vein (right). 18:24:28 A SHEATH, EPS, FR8 FAST CATH FR 8 was advanced into the Fem Vein (right) using the Modified Seldinger technique. A CATHETER, JSN, QUAD BUNDLE FR 5 was advanced vis Fem Vein (left) and placed in the CS. Placem ent was visually 18:26:28 confirmed under fluoroscopy. A CATHETER, JSN, QUAD BUNDLE FR 5 was advanced vis Fem Vein (left) and placed in the HIS. Place ment was 18:26:37 visually confirmed under fluoroscopy. 18:28:15 ice catheter Was Postioned. A SHEATH, FR8.5 STEERABLE SM 71CM BUNDLE 71CM was exchanged in the Fem Vein (right). This was n ecessary in 18:29:29 order for catheter support. 18:29:42 [place] [address] units HEPARIN given in lab by Anesthesia, INOCULATOR via Peripheral IV. Ordered by Aly Garcia Reason: As per 18:30:00 physicians verbal order. 18:34:11 A eps was advanced to the right atrium and passed through the septal wall to the left atriu m. 18:34:18 [place] out A CATHETER, FR7 OPTIMA SPIRAL BUNDLE FR7 was advanced vis Fem Vein (right) and placed in the LA . Placement 18:34:32 was visually confirmed under fluoroscopy. Mapping in progress. 18:36:55 Activated Clotting Time Drawn 18:42:19 Temp 35.4 18:44:10 ACT (Normal Range 90-180) = 312 2000 units HEPARIN given in lab by Anesthesia, INOCULATOR via Peripheral IV. Ordered by Abhi Garcia . Reason: As per 18:44:39 physicians verbal order. 1000 units/hr HEPARIN DRIP given in lab by Anesthesia, INOCULATOR via Peripheral IV. Pump/Drip Flow = 10 ml/hr using 18:45:01 [place] [address] units in 250 ml. Ordered by Abhi Garcia. Reason: As per phy sicians verbal order. 18:45:20 Mapping complete. Catheter was removed A CATHETER, TACTICATH ABLAT 65 BUNDLE was advanced vis Fem Vein (right) and placed in the LA. P lacement was 18:45:36 visually confirmed under fluoroscopy. 18:48:04 RF Ablation of the LT. ATRIUM with a CATHETER, TACTICATH ABLAT 65 BUNDLE. 18:51:46 Activated Clotting Time Drawn 18:55:52 Activated Clotting Time Redrawn 19:02:00 ACT (Normal Range 90-180) = 365 19:07:00 Monitor SR 19:07:30 Ablation complete. Catheter was removed 19:09:01 All catheter(s) removed without difficulty A SHEATH, FR9 CHELSEA 11CM FR 9 was exchanged in the Fem Vein (right). This was necessary in ord er to minimize 19:09:14 site leakage. 40 mg PROTAMINE given in lab by Anesthesia, INOCULATOR via Peripheral IV. Ordered by Abhi Garcia. Martine santos: As per 19:16:25 physicians verbal order. 19:17:19 PACU called. Spoke to Rachana 19:17:48 Bedside Report will be given. 19:17:51 Ablation procedure performed: AFIB. 19:17:58 EP Procedure was performed. 19:25:55 Activated Clotting Time Drawn 20 mg PROTAMINE given in lab by Anesthesia, INOCULATOR via Peripheral IV. Ordered by Hanscy. Martine Garcia: As per 19:31:34 physicians verbal order. Bed placement made aware of pt needing to go to [facility] post PACU per Dr La and Dr Garcia. Milady n in [facility] made 19:35:22 aware. 19:40:37 ACT (Normal Range 90-180) = 136 19:40:56 Right groin fem vein sheath removed; pressure applied to access site by DC. 19:41:00 Anesthesia requests left fem arterial line stay in. Sheath sutured and secured in place by DB. 19:46:42 Left groin venous sheaths removed; pressure applied to access site by DB. 20:12:58 Case End 20:13:01 Sterile dressing applied to site 20:13:02 No case complications noted. 20:14:03 Patient moved to stretcher 20:14:09 dani notified Jessica(Pacu) pt will be up shortly End Study - Contrast Media Used In Study Contrast Total Opened (mL) Total Used (mL) Total Wasted (mL) Unspecified 0 0 0 End Study - Maximum Contrast Load Max Contrast Load (mL) 166.2 End Study - Radiation Exposure Fluoro Time (minutes) 2.4 End Study - Patient Disposition Complications Transferred To Interventional Outcome No Telemetry Bed successful
[2017-12-31] MEDS ORDERED: DO NOT ADM ANY ANTICOAGULANT DRUGS PRN (21:15)
--- NOTE | 2017-12-31 21:22 | RADRPT ---
EXAM DATE/TIME: 12/31/2017 20:44 [place] COMPARISON: CHEST SINGLE AP, December 31, 2017, 5:55. INDICATIONS : Post intubation. MEDICAL HISTORY : Diabetes mellitus type II. Hypertension Congestive heart failure. SURGICAL HISTORY : Cholecystectomy. Ablation. ENCOUNTER: Subsequent ACUITY: 3 days PAIN SCORE: Non-responsive. LOCATION: Bilateral chest FINDINGS: The patient is intubated with the ET tube 7 cm above the shahrzad. The heart size is enlarged. There is a moderate right pleural effusion. There some hazy density at the right base. There is prominence of the interstitial markings. CONCLUSION: 1. ET tube in good position. 2. Cardiac leads. 3. Moderate right pleural effusion. 4. Prominence of the interstitial markings representing pulmonary venous hypertension or mild edema. Lito Dorado MD on December 31, 2017 at 21:16 Board Certified Radiologist. This report was verified electronically.
--- NOTE | 2017-12-31 22:17 | PD.CONS ---
HPI Service Critical Care Medicine Consult Requested By Primary Care Physician Julian Hartman MD History of Present Illness 72-year-old gentleman with multiple medical problems including morbid obesity, obstructive sleep apnea, diabetes mellitus, and chronic kidney insufficiency, underwent cardiac ablation for uncontrolled A. fib. Patient was intubated for procedure, and is transferred to ICU postprocedure for weaning of the mechanical ventilation. Review of Systems ROS Unobtainable patient is sedated and intubated Past Family Social History Allergies: Coded Allergies: penicillin G (Unverified Allergy, Severe, Hives, 12/28/17) Past Medical History Hypertension Type 2 diabetes Atrial fibrillation status post ablation on 11/10/17, cardioversion on 12/21 Sleep apnea Chronic kidney disease TIA Hypothyroidism CHF Past Surgical History Cholecystectomy Reported Medications Reported Meds & Active Scripts Active Lantus Inj (Insulin Glargine) 1,000 Unit/10 Ml Vial 12 Units SQ BID 30 Days Diltiazem CD 24 HR 240 Mg Caper 240 Mg PO DAILY Amiodarone (Amiodarone HCl) 200 Mg Tab 200 Mg PO DAILY Eliquis (Apixaban) 5 Mg Tab 5 Mg PO BID Reported Buspirone (Buspirone HCl) 5 Mg Tab Unknown Dose PO TID Niacinamide 500 Mg Tab 500 Mg PO DAILY Novolog Inj (Insulin Aspart) 1,000 Unit/10 Ml Vial 0 SQ DIRECTED Sliding Scale as directed. Hydrocodone-Acetaminophen 7.5 Mg-325 Mg Tab 1 Tab PO Q6H PRN [Testosterone] Fish Oil + D3 (Fish Oil-Cholecalciferol) 1,200-1,000 Mg-Unit Cap 1 Cap PO DAILY Pramipexole (Pramipexole Dihydrochloride) 0.5 Mg Tab 0.5 Mg PO HS Atorvastatin (Atorvastatin Calcium) 40 Mg Tab 40 Mg PO HS Sertraline (Sertraline HCl) 50 Mg Tab 50 Mg PO BID Prilosec (Omeprazole Magnesium) 20 Mg Tab 20 Mg PO DAILY Levothyroxine (Levothyroxine Sodium) 125 Mcg Tab 125 Mcg PO DAILY Bethanechol 25 Mg Tab 25 Mg PO DAILY Doxazosin (Doxazosin Mesylate) 4 Mg Tab 4 Mg PO HS Allopurinol 100 Mg Tab 100 Mg PO DAILY Ramipril 5 Mg Cap 5 Mg PO DAILY Active Ordered Medications Current Medications Medications (Trade) Dose Ordered Sig/Az Route PRN Reason Start Time Stop Time Status Last Admin Dose Admin Dextrose (D50w (Vial) Inj) 50 ml UNSCH PRN IV PUSH HYPOGLYCEMIA-SEE COMMENTS 12/28/17 07:00 Glucagon (Glucagon Inj) 1 mg UNSCH PRN OTHER HYPOGLYCEMIA-SEE COMMENTS 12/28/17 07:00 Insulin Aspart (NovoLOG SUPPLEMENTAL SCALE) 1 ACHS SLIDING SCALE SQ 12/28/17 08:00 12/31/17 12:16 Sodium Chloride (NS Flush) 2 ml UNSCH PRN IV FLUSH FLUSH AFTER USING IV ACCESS 12/28/17 07:00 12/31/17 13:08 Sodium Chloride (NS Flush) 2 ml BID IV FLUSH 12/28/17 09:00 12/31/17 10:15 Ondansetron HCl (Zofran Inj) 4 mg Q6H PRN IVP NAUSEA OR VOMITING 12/28/17 07:00 Acetaminophen (Tylenol) 650 mg Q6H PRN PO FEVER 12/28/17 07:00 Senna/Docusate Sodium (Delaney-Colace) 1 tab BID PO 12/28/17 09:00 12/31/17 10:06 Magnesium Hydroxide (Milk Of Magnesia Liq) 30 ml Q12H PRN PO Mild constipation 12/28/17 07:00 Sennosides (Senokot) 17.2 mg Q12H PRN PO Moderate constipation 12/28/17 07:00 Bisacodyl (Dulcolax Supp) 10 mg DAILY PRN RECTAL SEVERE CONSITIPATION 12/28/17 07:00 Lactulose (Lactulose Liq) 30 ml DAILY PRN PO SEVERE CONSITIPATION 12/28/17 07:00 Amiodarone HCl (Cordarone) 200 mg DAILY PO 12/28/17 09:00 12/31/17 10:06 Atorvastatin Calcium (Lipitor) 40 mg HS PO 12/28/17 21:00 12/30/17 21:37 Doxazosin Mesylate (Cardura) 4 mg HS PO 12/28/17 21:00 12/30/17 21:37 Insulin Detemir (Levemir Inj) 12 units BID SQ 12/28/17 09:00 12/31/17 10:10 Levothyroxine Sodium (Synthroid) 125 mcg DAILY@0600 PO 12/28/17 07:00 12/31/17 05:20 Sertraline HCl (Zoloft) 50 mg BID PO 12/28/17 09:00 12/31/17 10:06 Pantoprazole Sodium (Protonix) 20 mg DAILY PO 12/28/17 09:00 12/31/17 10:06 Pramipexole Dihydrochloride (Mirapex) 0.5 mg HS PO 12/28/17 21:00 12/30/17 21:37 Levalbuterol HCl (Xopenex Neb) 1.25 mg Q8HR NEB NEB 12/28/17 22:20 12/30/17 23:00 Albumin Human 100 ml @ 60 mls/hr Q12H IV 12/30/17 14:00 12/31/17 13:08 Oxycodone/ Acetaminophen (Percocet 5-325 Mg) 1 tab Q4H PRN PO PAIN SCALE 1 TO 4 12/31/17 19:30 Oxycodone/ Acetaminophen (Percocet 5-325 Mg) 2 tab Q4H PRN PO PAIN SCALE 5 TO 10 12/31/17 19:30 Lorazepam (Ativan Inj) 0.5 mg UNSCH PRN IV PUSH ANXIETY 12/31/17 19:30 01/01/18 19:29 Atropine Sulfate (Atropine Inj) 0.5 mg UNSCH PRN IV PUSH VAGAL REPONSE 12/31/17 19:30 Sodium Chloride 250 ml @ 500 mls/hr ONCE PRN IV VAGAL REPONSE 12/31/17 19:30 01/01/18 19:29 Ondansetron HCl (Zofran Inj) 4 mg Q4H PRN IV PUSH NAUSEA 12/31/17 19:30 Lidocaine HCl (Xylocaine 1% Inj (50 ml)) 10 ml UNSCH PRN INFIL SHEATH REMOVAL 12/31/17 19:30 01/01/18 19:29 Apixaban (Eliquis) 2.5 mg BID PO 01/01/18 09:00 Miscellaneous Information ALL NURSING DEPARTME... UNSCH PRN .XX SEE LABEL COMMENTS 12/31/17 21:15 01/01/18 21:14 Family History No family history significant for coronary artery disease or malignancy Social History No history of tobacco, alcohol, or illicit drug use. Physical Exam Vital Signs Vital Signs Date Time Temp Pulse Resp B/P (MAP) Pulse Ox O2 Delivery O2 Flow Rate FiO2 12/31/17 21:45 67 12 97/61 (73) 100 Mechanical Ventilator 100 12/31/17 21:15 69 12 105/66 (79) 100 Mechanical Ventilator 100 12/31/17 21:00 71 12 109/66 (80) 100 Mechanical Ventilator 100 12/31/17 20:45 72 15 111/66 (81) 99 Mechanical Ventilator 100 12/31/17 20:30 100 12/31/17 20:30 97.4 70 20 96/58 (71) 97 Mechanical Ventilator 100 12/31/17 15:30 96 Nasal Cannula 4.00 12/31/17 15:30 97.8 123 26 132/87 (102) 94 12/31/17 15:30 123 12/31/17 11:30 96 Nasal Cannula 4.00 12/31/17 11:30 98.0 121 26 136/93 (107) 94 12/31/17 11:30 121 12/31/17 08:52 94 4.50 12/31/17 07:30 97.6 120 28 124/85 (98) 94 12/31/17 07:30 96 Nasal Cannula 4.00 12/31/17 07:30 120 12/31/17 06:29 96 Nasal Cannula 4.50 12/31/17 06:00 119 12/31/17 05:00 118 12/31/17 04:00 118 12/31/17 03:30 97.7 116 20 129/80 (96) 93 12/31/17 03:30 93 Nasal Cannula 4.00 12/31/17 03:00 116 12/31/17 02:00 117 12/31/17 01:00 116 12/31/17 00:00 116 12/31/17 00:00 96 Nasal Cannula 4.00 12/31/17 00:00 97.6 117 22 117/82 (94) 96 12/30/17 23:00 116 Physical Exam GENERAL: Morbidly obese gentleman sedated and intubated SKIN: Warm and dry. HEAD: Normocephalic. EYES: No scleral icterus. No injection or drainage. NECK: Supple, trachea midline. No JVD or lymphadenopathy. CARDIOVASCULAR: Regular rate and rhythm without murmurs, gallops, or rubs. RESPIRATORY: Breath sounds equal bilaterally. No accessory muscle use. GASTROINTESTINAL: Abdomen soft, non-tender, nondistended. MUSCULOSKELETAL: No cyanosis, or edema. BACK: Nontender without obvious deformity. NEURO EXAM: Mental Status: The patient is sedated and intubated Laboratory Laboratory Tests Test 12/31/17 06:50 12/31/17 19:48 White Blood Count 5.7 Red Blood Count 3.74 Hemoglobin 9.8 Hematocrit 31.4 Mean Corpuscular Volume 84.0 Mean Corpuscular Hemoglobin 26.3 Mean Corpuscular Hemoglobin Concent 31.3 Red Cell Distribution Width 20.4 Platelet Count 142 Mean Platelet Volume 9.4 Blood Urea Nitrogen 84 Creatinine 3.47 Random Glucose 167 Calcium Level 8.4 Phosphorus Level 6.7 Magnesium Level 3.0 Sodium Level 139 Potassium Level 5.3 Chloride Level 106 Carbon Dioxide Level 20.1 Anion Gap 13 Estimat Glomerular Filtration Rate 17 Blood Gas Puncture Site ART LINE Blood Gas Patient Temperature 98.6 Blood Gas HCO3 19 Blood Gas Base Excess -6.4 Blood Gas Oxygen Saturation 89 Arterial Blood pH 7.28 Arterial Blood Partial Pressure CO2 43 Arterial Blood Partial Pressure O2 72 Arterial Blood Oxygen Content 12.0 Arterial Blood Carboxyhemoglobin 1.1 Arterial Blood Methemoglobin 1.2 Blood Gas Hemoglobin 9.6 Oxygen Delivery Device Non-Rebreathing Mask Blood Gas Liter Flow 15 Blood Gas Inspired Oxygen 100 Result Diagram: 12/31/17 0650 12/31/17 0650 Imaging Last 24 hours Impressions Chest X-Ray 12/31/17 0000 Signed Impressions: Service Date/Time: Sunday, December 31, 2017 20:44 - CONCLUSION: 1. ET tube in good position. 2. Cardiac leads. 3. Moderate right pleural effusion. 4. Prominence of the interstitial markings representing pulmonary venous hypertension or mild edema. Lito Dorado MD Chest X-Ray 12/31/17 0000 Signed Impressions: Service Date/Time: Sunday, December 31, 2017 05:55 - CONCLUSION: Bibasilar hazy densities and small right pleural effusion. Robin Quigley MD Assessment and Plan Assessment and Plan Respiratory failure - Intubated for procedure - SBT daily - Attempt wean and extubate a.m. - Vent bundle - DuoNeb scheduled and when necessary Obstructive sleep apnea - Not an issue while intubated - Occipital CPAP postextubation Diabetes mellitus - Insulin sliding scale Chronic kidney disease - Nephrology consultation appreciated Atrial fibrillation - Status post ablation - Currently in sinus rhythm - Continue aspirin - Amiodarone - Eliquis - Diltiazem - Further management per cardiology Hypothyroidism - Levothyroxine Depressions - Zoloft DVT GI prophylaxis - Teds SCDs - Eliquis - PPI Critical Care: The total critical care time was 35 minutes. Time to perform other separately billable procedures was not included in the critical care time. Timo Hamm MD Dec 31, 2017 10:17 pm
[2017-12-31] MEDS: ATORVASTATIN 40 MG TAB PO SCH (23:00)
[2017-12-31] MEDS: PRAMIPEXOLE DIHYDROCHLORIDE 0.25 MG TAB PO SCH (23:00)
[2017-12-31] MEDS: DOXAZOSIN MESYLATE 4 MG TAB PO SCH (23:00)
[2018-01-01] VITALS (17 sets, daily range): BP systolic 96–124; BP diastolic 58–80; PULSE 67–98; RESP 16–25; TEMP 97.6–97.8; O2SAT 90–100
[2018-01-01] MEDS: RESP: LEVALBUTEROL HYDROCHLORIDE 1.25 MG/3 ML NEB (SCH) NEB ×3 (00:01→16:00)
[2018-01-01] MEDS: ALBUMIN 25% INJ 100 ML IV SCH ×2 (02:00→13:38)
[2018-01-01] MEDS ORDERED: PROPOFOL 500 MG/50 ML INJ 50 ML ONE (02:22)
[2018-01-01 04:36] LABS: INTERNATIONAL NORMALIZED RATIO 1.3 RATIO; PROTHROMBIN TIME - PATIENT 13.4 SEC (9.8-11.6)
[2018-01-01] MEDS ORDERED: PROPOFOL 1000 MG/100 ML IV PRN (04:45)
[2018-01-01 04:54] LABS: BICARBONATE 20.3 MEQ/L (21.0-32.0); CALCIUM 8.3 MG/DL (8.5-10.1); CREATININE 3.59 MG/DL (0.60-1.30)
[2018-01-01] MEDS: LEVOTHYROXINE SODIUM 125 MCG TAB PO SCH (05:00)
[2018-01-01] MEDS: INSULIN ASPART SUPPLEMENTAL SCALE SQ SCH ×5 (08:00→21:00)
[2018-01-01] MEDS: AMIODARONE 200 MG TAB PO SCH (09:00)
[2018-01-01] MEDS: PANTOPRAZOLE SOD 20 MG DELAYED RELEASE TAB PO SCH (09:00)
[2018-01-01] MEDS: SODIUM CHLORIDE 0.9% FLUSH 10 ML FLUSH IV FLUSH SCH (09:00)
[2018-01-01] MEDS: APIXABAN 2.5 MG TABLET PO SCH ×2 (09:00→21:07)
[2018-01-01] MEDS: SERTRALINE HCL 50 MG TAB PO SCH ×2 (09:00→21:08)
[2018-01-01] MEDS: DOCUSATE SODIUM 50 MG/SENNA 8.6 MG TAB PO SCH ×2 (09:00→21:08)
[2018-01-01] MEDS: INSULIN DETEMIR 100 UNITS/ML VIAL SQ SCH ×2 (09:16→21:00)
--- NOTE | 2018-01-01 10:43 | HHI.CCPN ---
Subjective Remarks/Hospital Course 72-year-old gentleman with multiple medical problems including morbid obesity, obstructive sleep apnea, diabetes mellitus, and chronic kidney insufficiency, underwent cardiac ablation for uncontrolled A. fib. Patient was intubated for procedure, and is transferred to ICU postprocedure for weaning of the mechanical ventilation due to increased abdominal girth. SUBJECTIVE: 01/01: Afebrile. Patient extremely agitated with weaning sedation. Currently on PSV trial.. Chest x-ray revealed moderate size right pleural effusion. Currently in sinus rhythm Objective Vital Signs Date Time Temp Pulse Resp B/P (MAP) Pulse Ox O2 Delivery O2 Flow Rate FiO2 01/01/18 08:27 50 01/01/18 08:21 94 01/01/18 08:00 69 01/01/18 08:00 Mechanical Ventilator 01/01/18 08:00 97.7 16 106/58 (74) 12/31/17 15:30 4.00 Intake and Output 01/01/18 01/01/18 01/01/18 07:59 15:59 23:59 Output Total 250 ml Balance -250 ml Result Diagram: 12/31/17 0650 01/01/18 0410 Imaging Last Impressions Chest X-Ray 12/31/17 0000 Signed Impressions: Service Date/Time: Sunday, December 31, 2017 20:44 - CONCLUSION: 1. ET tube in good position. 2. Cardiac leads. 3. Moderate right pleural effusion. 4. Prominence of the interstitial markings representing pulmonary venous hypertension or mild edema. Lito Dorado MD Objective Remarks GENERAL: Morbidly obese gentleman sedated and intubated SKIN: Warm and dry. HEAD: Normocephalic. EYES: No scleral icterus. No injection or drainage. NECK: Supple, trachea midline. No JVD or lymphadenopathy. CARDIOVASCULAR: Regular rate and rhythm without murmurs, gallops, or rubs. RESPIRATORY: Breath sounds equal bilaterally. No accessory muscle use. GASTROINTESTINAL: Abdomen soft, non-tender, nondistended. MUSCULOSKELETAL: No cyanosis, or edema. BACK: Nontender without obvious deformity. NEURO EXAM: Mental Status: The patient is sedated and intubated Urinary Catheter: Yes Assessment to: Continue Andrade insert reason: Prolonged Immobilization Vascular Central Line Catheter: No Assessment to: Continue A/P Assessment and Plan Neuro/Psych: Depression/anxiety Chronic narcotic use Currently on propofol 20 mcg/kg/min for sedation while intubated Goal of RASS -2 Daily sedation vacation Continue sertraline 50 mg twice daily/home medication for depression Continue pramipexole 0.5 mg p.o. daily for experimental side effects Currently holding buspirone 5 mg 3 times daily anxiety Holding hydrocodone/acetaminophen 7.5/325 1 tablet every 6 hours as needed CV: Status post ablation for A. fib/flutter Chronic diastolic heart failure ejection fraction 45-50% 08/22 Hypertension Dyslipidemia Continue amiodarone 200 mg by mouth daily Continue atorvastatin 40 mg p.o. daily for his lipidemia Order fish oil/cholecalciferol 1200/1000 1 tablet twice daily/home medication Holding diltiazem 240 mg p.o. daily/home medication Holding ramipril 5 mg p.o. daily for hypertension with acute kidney injury Resp: MUNA -nocturnal CPAP 8 cm H2O Moderate right pleural effusion Plan extubation today. Currently on PSVT trial 09/09 and 40% Simple mask with oxygen maintain around 90% Acapella every 6 hours levalbuterol 1.25 mg NEB q8h GI: Gastroesophageal reflux disease Bedside swallow evaluation. Continue pantoprazole 20 mg p.o. daily for gastroesophageal disease. On omeprazole 20 mg p.o. daily at home Docusate sodium/senna 1 tablet twice daily for bowel regimen : BPH/overflow Andrade catheter has been placed for accurate I's and O's in a critically ill patient Continue doxazosin 4 mg daily and bethanechol 25 mg daily Endo: Diabetes mellitus Hypothyroidism Low testosterone Currently on insulin detemir 12 units twice daily with NovoLog sliding scale insulin/low regimen before meals at bedtime At home on insulin glargine 12 units twice daily with sliding scale insulin Continue levothyroxine 125 mg p.o. daily Holding testosterone Renal: Acute kidney injury likely secondary to cardiorenal syndrome Followed by nephrology. Monitor urine output Accurate I's and O's. Check renal ultrasound and urine eosinophils and electrolytes Heme: Chronic apixaban use Normocytic normochromic anemia Thrombocytopenia Currently renally dose of 2.5 mg twice daily ID: Monitor for infection FEN: Hypermagnesia Hyperphosphatemia Replace electrolytes as clinically indicated MSK: Osteoporosis/osteoarthritis PT evaluate and treat Access -Utilize peripheral IV. Central line if indicated Prophylaxis -GI -pantoprazole -DVT -SCD/apixaban Level 3 follow-up Marin Goodman MD Jan 01, 2018 10:43
[2018-01-01] MEDS ORDERED: PHENOL 1.4% SOLN 180 ML BTL OROPHARYNG PRN (12:00)
[2018-01-01 12:20] LABS: CREATININE, RANDOM URINE 164.1 MG/DL
--- NOTE | 2018-01-01 13:39 | EKG ---
Date Performed: 12/31/2017 Time Performed: 20:55:38 PTAGE: 72 years EKG: Sinus rhythm WITH FIRST DEGREE AV BLOCK RIGHT BUNDLE BRANCH BLOCK ABNORMAL ECG Compared to PREVIOUS TRACING , the patient is no longer in SVT. PREVIOUS TRACIN12/28/2017 14.48 DOCTOR: Ajit Ramirez Interpretating Date/Time 01/01/2018 13:38:51
--- NOTE | 2018-01-01 15:27 | HHI.NPPN ---
Subjective History of Present Illness 72 year old male with Chf/Atrial tachycardia/Afib admitted with Tachyarrhythmia Review of Systems General Constitutional: Fatigue Objective Data Data Vital Signs Date Time Temp Pulse Resp B/P (MAP) Pulse Ox O2 Delivery O2 Flow Rate FiO2 01/01/18 14:00 87 01/01/18 12:23 Simple Mask 6.00 01/01/18 12:00 90 Nasal Cannula 8.00 01/01/18 12:00 97.6 85 20 119/75 (90) 90 Arterial Line 01/01/18 12:00 85 01/01/18 10:39 92 Mask 10 01/01/18 10:00 79 01/01/18 08:27 50 01/01/18 08:21 94 50 01/01/18 08:00 50 01/01/18 08:00 69 01/01/18 08:00 98 Mechanical Ventilator 50 01/01/18 08:00 97.7 68 16 106/58 (74) 98 01/01/18 06:00 68 01/01/18 04:11 98 50 01/01/18 04:00 97.7 69 16 97 112/64 (80) 01/01/18 04:00 50 01/01/18 04:00 100 Mechanical Ventilator 50 01/01/18 04:00 69 01/01/18 02:00 68 01/01/18 00:04 98 50 01/01/18 00:00 50 01/01/18 00:00 67 01/01/18 00:00 100 Mechanical Ventilator 50 01/01/18 00:00 97.6 67 16 96/64 (75) 100 114/68 (83) 12/31/17 23:00 97.7 68 16 105/59 (74) 98 12/31/17 23:00 50 12/31/17 23:00 67 12/31/17 22:45 98 50 12/31/17 22:29 100 100 12/31/17 22:15 68 12 96/67 (77) 100 Mechanical Ventilator 100 12/31/17 22:00 67 12 96/65 (75) 100 Mechanical Ventilator 100 12/31/17 21:45 67 12 97/61 (73) 100 Mechanical Ventilator 100 12/31/17 21:15 69 12 105/66 (79) 100 Mechanical Ventilator 100 12/31/17 21:00 71 12 109/66 (80) 100 Mechanical Ventilator 100 12/31/17 20:45 72 15 111/66 (81) 99 Mechanical Ventilator 100 12/31/17 20:38 98 100 12/31/17 20:30 100 12/31/17 20:30 97.4 70 20 96/58 (71) 97 Mechanical Ventilator 100 12/31/17 15:30 96 Nasal Cannula 4.00 12/31/17 15:30 97.8 123 26 132/87 (102) 94 12/31/17 15:30 123 -: 12/31/17 0650 01/01/18 0410 Physical Exam General Appearance: Well Developed, Well Nourished Neck Neck Exam: Neck Supple Pulmonary Resp Exam: Decreased Bases Cardiology CV Exam: Tachycardia Gastrointestinal/Abdomen GI Exam: Soft, Non-Tender, Bowel Sounds Present Extremeties Extremities Exam: Moderate Edema Neurologic Neuro Exam: Alert, Awake Assessment/Plan Problem List: (1) Acute renal failure ICD Codes: N17.9 - Acute kidney failure, unspecified Plan: Patient has cardiogenic shock and low blood pressure contributing, and cardiorenal syndrome Plan is to cardiovert him once he is stable on Eliquis He has underlying tachyarrhythmia Atrial fibrillation/atrial tachycardia s/p cardiac Ablation Urine output low Creatinine rising order Lasix drip (2) Chronic kidney disease, stage III (moderate) ICD Codes: N18.3 - Chronic kidney disease, stage III (moderate) Status: Acute Plan: Baseline care around 1.7 (3) Congestive heart failure ICD Codes: I50.9 - Heart failure, unspecified Status: Acute Plan: He is in cardiogenic shock low blood pressure causing the cardiorenal syndrome (4) PAF (paroxysmal atrial fibrillation) ICD Codes: I48.0 - Paroxysmal atrial fibrillation Plan: Cardiology was following (5) Diabetes ICD Codes: E11.9 - Diabetes Status: Chronic Plan: Monitor blood glucose (6) Acute on chronic systolic CHF (congestive heart failure) ICD Codes: I50.23 - Acute on chronic systolic (congestive) heart failure Problem Qualifiers (1) Congestive heart failure: Qualified Codes: I50.9 - Heart failure, unspecified Susan Solo MD Jan 01, 2018 15:26
[2018-01-01] MEDS ORDERED: FUROSEMIDE 40 MG/4 ML VIAL IV PUSH ONE (17:00)
--- NOTE | 2018-01-01 17:55 | RADRPT ---
EXAM DATE/TIME: 01/01/2018 18:16 [facility] COMPARISON: US KIDNEY/RENAL/BLADDER, December 05, 2017, 20:35. EXTERNAL COMPARISON : [facility], KIDNEY BILATERAL, June 04, 2013, October 15, 2010. INDICATIONS : Increased BUN/creatinine. MEDICAL HISTORY : Myocardial infarction. Congestive heart failure. Hypercholesterolemia. Thyroid disease. CVA. Confusio n. Irregular heartbeat. HTN. Stage III chronic kidney disease. Sleep apnea. Dyspnea. GERD. Arthritis. Gait problems. Type II Diabetes. Shingles. Depression. Anxiety. MRSA. Anticoagulant therapy, Eliquis & Heparin. SURGICAL HISTORY : Cholecystectomy. Left cataract. Cardiac ablation. Cardiac cath. ENCOUNTER: Subsequent ACUITY: 1 month PAIN SCORE: 4/10 LOCATION: Bilateral flank MEASUREMENTS: RIGHT KIDNEY: 11.3 x 5.0 x 5.6 cm LEFT KIDNEY: 11.2 x 5.7 x 6.2 cm FINDINGS: RIGHT KIDNEY: There is some increased echogenicity of the renal parenchyma. There is no hydronephrosis. There is a 2.2 cm right renal cyst. No significant change compared to the prior study. LEFT KIDNEY: There is some increased echogenicity of the renal parenchyma. There is no hydronephrosis. No change c ompared to the prior study. BLADDER: Andrade catheter in urinary bladder. There is a small amount of ascites. CONCLUSION: 1. No evidence of hydronephrosis. 2. No new or significant changes compared to the prior exam 3. 2.2 cm right renal cyst. Luiz Frey MD on January 01, 2018 at 17:51 Board Certified Radiologist. This report was verified electronically.
[2018-01-01] MEDS ORDERED: BUMETANIDE INJ 100 ML IV SCH (18:00)
[2018-01-01] MEDS: PRAMIPEXOLE DIHYDROCHLORIDE 0.25 MG TAB PO SCH (21:07)
[2018-01-01] MEDS: DOXAZOSIN MESYLATE 4 MG TAB PO SCH (21:07)
[2018-01-01] MEDS: ATORVASTATIN 40 MG TAB PO SCH (21:08)
[2018-01-01] MEDS: oxyCODONE/ACETAMINOPHEN 5 MG/325 MG TAB PO PRN (23:47)
[2018-01-02] VITALS (20 sets, daily range): BP systolic 106–129; BP diastolic 69–78; PULSE 80–123; RESP 16–26; TEMP 97.8–98.3; O2SAT 91–100
[2018-01-02] MEDS: RESP: LEVALBUTEROL HYDROCHLORIDE 1.25 MG/3 ML NEB (SCH) NEB ×4 (00:52→19:49)
[2018-01-02] MEDS: LEVOTHYROXINE SODIUM 125 MCG TAB PO SCH (06:03)
[2018-01-02] MEDS: SODIUM CHLORIDE 0.9% FLUSH 10 ML FLUSH IV FLUSH SCH ×3 (06:04→20:30)
[2018-01-02 07:02] LABS: BASOPHIL % 0.1 % (0.0-2.0); EOSINOPHIL # 0.1 TH/MM3 (0-0.4); EOSINOPHIL % 1.2 % (0.0-4.0); HEMATOCRIT 29.9 % (39.0-51.0); HEMOGLOBIN 9.6 GM/DL (13.0-17.0); LYMPH % 12.9 % (9.0-44.0); LYMPHOCYTE # 0.8 TH/MM3 (1.0-4.8); MEAN CELL VOLUME 83.3 FL (80.0-100.0); MEAN CORPUSCULAR HEMOGLOBIN 26.6 PG (27.0-34.0); MEAN PLATELET VOLUME 9.1 FL (7.0-11.0); MONO % 8.5 % (0.0-8.0); MONOCYTE # 0.5 TH/MM3 (0-0.9); NEUT % 77.3 % (16.0-70.0); PLATELET COUNT 143 TH/MM3 (150-450); RED BLOOD COUNT 3.59 MIL/MM3 (4.50-5.90); RED CELL DISTRIBUTION WIDTH 20.9 % (11.6-17.2); WHITE BLOOD COUNT 6.5 TH/MM3 (4.0-11.0)
[2018-01-02 07:29] LABS: ALBUMIN 3.5 GM/DL (3.4-5.0); ALKALINE PHOSPHATASE 107 U/L (45-117); ALT (GPT) 79 U/L (12-78); BICARBONATE 23.3 MEQ/L (21.0-32.0); BLOOD UREA NITROGEN 94 MG/DL (7-18); CALCIUM 8.5 MG/DL (8.5-10.1); CHLORIDE 109 MEQ/L (98-107); CREATININE 3.54 MG/DL (0.60-1.30); GLOMERULAR FILTRATION RATE 17 ML/MIN (>89); GLUCOSE,RANDOM 108 MG/DL (74-106); MAGNESIUM 2.8 MG/DL (1.5-2.5); PHOSPHORUS 5.4 MG/DL (2.5-4.9); SODIUM (NA) 143 MEQ/L (136-145); TOTAL BILIRUBIN ADULT 0.8 MG/DL (0.2-1.0); TOTAL PROTEIN 6.5 GM/DL (6.4-8.2)
[2018-01-02 07:33] LABS: AST (GOT) 54 U/L (15-37)
[2018-01-02] MEDS: INSULIN ASPART SUPPLEMENTAL SCALE SQ SCH ×4 (08:00→20:33)
[2018-01-02] MEDS: PANTOPRAZOLE SOD 20 MG DELAYED RELEASE TAB PO SCH (08:43)
[2018-01-02] MEDS: DOCUSATE SODIUM 50 MG/SENNA 8.6 MG TAB PO SCH ×2 (08:43→20:29)
[2018-01-02] MEDS: POLYETHYLENE GLYCOL 17 GM PKG PO SCH ×2 (08:43→20:29)
[2018-01-02] MEDS: AMIODARONE 200 MG TAB PO SCH (08:43)
[2018-01-02] MEDS: LACTULOSE SYRUP 20 GM/30 ML CUP PO SCH ×4 (08:43→20:29)
[2018-01-02] MEDS: ALLOPURINOL 100 MG TAB PO SCH (08:43)
[2018-01-02] MEDS: BETHANECHOL CHL 25 MG TAB PO SCH (08:44)
[2018-01-02] MEDS: APIXABAN 2.5 MG TABLET PO SCH ×2 (08:44→20:29)
[2018-01-02] MEDS: SERTRALINE HCL 50 MG TAB PO SCH ×2 (08:44→20:29)
[2018-01-02] MEDS: INSULIN DETEMIR 100 UNITS/ML VIAL SQ SCH ×2 (08:46→20:36)
[2018-01-02] MEDS ORDERED: NON-FORMULARY DRUG (Fish Oil-Cholecalciferol (Fish Oil + D3) 1 CAP) PO SCH (09:00)
[2018-01-02] MEDS ORDERED: NIACINAMIDE 500 MG PO SCH (09:00)
[2018-01-02] MEDS ORDERED: METHYLNALTREXONE BROMIDE 12 MG/0.6 ML VIAL SQ ONE (09:00)
[2018-01-02] MEDS ORDERED: GLYCERIN ADULT 2 GM SUPP RECTAL ONE (09:00)
--- NOTE | 2018-01-02 09:12 | RADRPT ---
EXAM DATE/TIME: 01/02/2018 08:29 [facility] COMPARISON: No previous studies available for comparison. INDICATIONS : Abdominal pain and ileus. MEDICAL HISTORY : Myocardial infarction. Congestive heart failure. Hypercholesterolemia. SURGICAL HISTORY : Cholecystectomy. Left cataract. Cardiac ablation. Cardiac cath. ENCOUNTER: Subsequent ACUITY: 4 - 6 days PAIN SCORE: Non-responsive. LOCATION: Abdomen. FINDINGS: 2 APportable views of the abdomen were obtained and demonstrate multiple loops of borderline dilated air-containing small bowel. There is gas in the ascending and transverse colons which are there is no free air in the supine study. The bony structures appear intact. The lung bases were cut off exam. T he lower pelvis is not included as well. Portions of the lateral abdominal wall are not included. mil dly prominent as well. CONCLUSION: Nonspecific bowel gas pattern most recent of an ileus. John Neville MD on January 02, 2018 at 9:07 Board Certified Radiologist. This report was verified electronically.
[2018-01-02] MEDS: oxyCODONE/ACETAMINOPHEN 5 MG/325 MG TAB PO PRN ×2 (09:36→21:06)
--- NOTE | 2018-01-02 09:54 | RADRPT ---
EXAM DATE/TIME: 01/02/2018 08:24 [facility] COMPARISON: CHEST SINGLE AP, December 31, 2017, 20:44. INDICATIONS : Short of breath MEDICAL HISTORY : Myocardial infarction. Congestive heart failure. Hypercholesterolemia. SURGICAL HISTORY : Cholecystectomy. Left cataract. Cardiac ablation. Cardiac cath. ENCOUNTER: Subsequent ACUITY: 4 - 6 days PAIN SCORE: Non-responsive. LOCATION: Bilateral chest FINDINGS: There has been interval extubation. Hazy bilateral pleural-parenchymal opacities persist, slightly wo rse on the right than the left. Cardiomegaly is unchanged. CONCLUSION: Interval extubation. Otherwise stable aeration. Lito Adkins MD on January 02, 2018 at 9:51 Board Certified Radiologist. This report was verified electronically.
[2018-01-02] MEDS: FUROSEMIDE INJ 100 MG in SODIUM CHLORIDE 0.9% INJ 90 ML IV SCH (11:13)
--- NOTE | 2018-01-02 11:24 | EKG ---
Date Performed: 01/01/2018 Time Performed: 11:02:05 PTAGE: 72 years EKG: Sinus rhythm MARKED RIGHT AXIS DEVIATION RIGHT BUNDLE BRANCH BLOCK ABNORMAL ECG PREVIOUS TRACING : 12/31/2017 20.55 Since the previous tracing, no significant change noted DOCTOR: Mario López Interpretating Date/Time 01/02/2018 11:23:20
--- NOTE | 2018-01-02 12:30 | HHI.NPPN ---
Subjective History of Present Illness 72 year old male with Chf/Atrial tachycardia/Afib admitted with Tachyarrhythmia Review of Systems General Constitutional: Fatigue Objective Data Data Vital Signs Date Time Temp Pulse Resp B/P (MAP) Pulse Ox O2 Delivery O2 Flow Rate FiO2 01/02/18 10:00 98 01/02/18 08:50 97 45 01/02/18 08:00 88 01/02/18 08:00 93 Bi-Pap 60 01/02/18 08:00 97.8 90 18 117/69 (85) 93 01/02/18 07:35 93 Simple Mask 10.00 01/02/18 06:00 95 Bi-Pap 60 01/02/18 06:00 94 01/02/18 04:00 94 01/02/18 04:00 98.0 90 18 117/69 (85) 95 01/02/18 03:27 97 60 01/02/18 02:48 96 01/02/18 02:30 99 Bi-Pap 60 01/02/18 02:00 123 01/02/18 01:45 95 Bi-Pap 60 01/02/18 01:30 92 50 01/02/18 01:15 93 Bi-Pap 60 01/02/18 01:00 Simple Mask 9.00 01/02/18 00:57 91 Simple Mask 10.00 01/02/18 00:30 121 01/02/18 00:30 90 Simple Mask 9.00 01/02/18 00:00 90 Nasal Cannula 6.00 01/02/18 00:00 98.1 80 26 127/73 (91) 91 01/02/18 00:00 80 01/01/18 22:00 98 01/01/18 20:15 95 Simple Mask 9.00 01/01/18 20:00 95 Simple Mask 9.00 01/01/18 20:00 97.7 98 25 124/60 (81) 93 01/01/18 20:00 98 01/01/18 19:30 93 Nasal Cannula 8.00 01/01/18 19:27 95 Simple Mask 10.00 01/01/18 18:00 97 01/01/18 16:00 95 01/01/18 16:00 97.8 95 25 120/80 (93) 93 01/01/18 16:00 93 Nasal Cannula 8.00 01/01/18 14:00 87 -: 01/02/18 0633 01/02/18 0633 Physical Exam General Appearance: Well Developed, Well Nourished Neck Neck Exam: Neck Supple Pulmonary Resp Exam: Decreased Bases Cardiology CV Exam: Tachycardia Gastrointestinal/Abdomen GI Exam: Soft, Non-Tender, Bowel Sounds Present Extremeties Extremities Exam: Moderate Edema Neurologic Neuro Exam: Alert, Awake Assessment/Plan Problem List: (1) Acute renal failure ICD Codes: N17.9 - Acute kidney failure, unspecified Plan: Patient has cardiogenic shock and low blood pressure contributing, and cardiorenal syndrome Plan is to cardiovert him once he is stable on Eliquis He has underlying tachyarrhythmia Atrial fibrillation/atrial tachycardia s/p cardiac Ablation Urine output started on Lasix drip this morning Monitor BMP creatinine is slightly better d/w Dr. Goodman (2) Chronic kidney disease, stage III (moderate) ICD Codes: N18.3 - Chronic kidney disease, stage III (moderate) Status: Acute Plan: Baseline care around 1.7 (3) Congestive heart failure ICD Codes: I50.9 - Heart failure, unspecified Status: Acute Plan: He is in cardiogenic shock low blood pressure causing the cardiorenal syndrome (4) PAF (paroxysmal atrial fibrillation) ICD Codes: I48.0 - Paroxysmal atrial fibrillation Plan: Cardiology was following (5) Diabetes ICD Codes: E11.9 - Diabetes Status: Chronic Plan: Monitor blood glucose (6) Acute on chronic systolic CHF (congestive heart failure) ICD Codes: I50.23 - Acute on chronic systolic (congestive) heart failure Problem Qualifiers (1) Congestive heart failure: Qualified Codes: I50.9 - Heart failure, unspecified Susan Solo MD Jan 02, 2018 12:30
--- NOTE | 2018-01-02 12:31 | HHI.CCPN ---
Subjective Remarks/Hospital Course 72-year-old gentleman with multiple medical problems including morbid obesity, obstructive sleep apnea, diabetes mellitus, and chronic kidney insufficiency, underwent cardiac ablation for uncontrolled A. fib. Patient was intubated for procedure, and is transferred to ICU postprocedure for weaning of the mechanical ventilation due to increased abdominal girth. 01/01: Afebrile. Patient extremely agitated with weaning sedation. Currently on PSV trial.. Chest x-ray revealed moderate size right pleural effusion. Currently in sinus rhythm SUBJECTIVE: 01/02: Started on BiPAP overnight 09/09 at 50% Furosemide gtt not initiated until this AM. Will attempt to diurese. Will possibly need thoracentesis in a.m. when off apixaban 24 hours. Possible ileus on CAT scan. Started on metoclopramide Objective Vital Signs Date Time Temp Pulse Resp B/P (MAP) Pulse Ox O2 Delivery O2 Flow Rate FiO2 01/02/18 10:00 98 01/02/18 08:50 97 45 01/02/18 08:00 Bi-Pap 01/02/18 08:00 97.8 18 117/69 (85) 01/02/18 07:35 10.00 Intake and Output 01/02/18 01/02/18 01/03/18 08:00 16:00 00:00 Intake Total 330 ml Output Total 1500 ml Balance -1170 ml Result Diagram: 01/02/18 0633 01/02/18 0633 Imaging Last Impressions Chest X-Ray 01/02/18 0000 Signed Impressions: Service Date/Time: Tuesday, January 02, 2018 08:24 - CONCLUSION: Interval extubation. Otherwise stable aeration. Lito Adkins MD Abdomen X-Ray 01/02/18 0000 Signed Impressions: Service Date/Time: Tuesday, January 02, 2018 08:29 - CONCLUSION: Nonspecific bowel gas pattern most recent of an ileus. John Neville MD Renal Ultrasound 01/01/18 0000 Signed Impressions: Service Date/Time: December 18:16 - CONCLUSION: 1. No evidence of hydronephrosis. 2. No new or significant changes compared to the prior exam 3. 2.2 cm right renal cyst. Luiz Frey MD Objective Remarks GENERAL: 72-year-old male currently on BiPAP SKIN: Warm and dry. HEAD: Normocephalic. EYES: No scleral icterus. No injection or drainage. NECK: Supple, trachea midline. No JVD or lymphadenopathy. CARDIOVASCULAR: Regular rate and rhythm without murmurs, gallops, or rubs. RESPIRATORY: Breath sounds equal bilaterally. No accessory muscle use. GASTROINTESTINAL: Abdomen protuberant/obese/distended. Hypoactive bowel sounds are present MUSCULOSKELETAL: Trace to 1+ lower extremity edema. NEURO EXAM: Cranial nerves II through XII grossly intact. Strength is equal symmetric. Normal sensation Vascular Central Line Catheter: No Assessment to: Continue A/P Assessment and Plan Neuro/Psych: Depression/anxiety Chronic narcotic use Continue sertraline 50 mg twice daily/home medication for depression Continue pramipexole 0.5 mg p.o. daily for experimental side effects Currently holding buspirone 5 mg 3 times daily anxiety Holding hydrocodone/acetaminophen 7.5/325 1 tablet every 6 hours as needed CV: Status post ablation for A. fib/flutter Chronic diastolic heart failure ejection fraction 45-50% 08/22 Hypertension Dyslipidemia Continue amiodarone 200 mg by mouth daily Continue atorvastatin 40 mg p.o. daily for his lipidemia Order fish oil/cholecalciferol 1200/1000 1 tablet twice daily/home medication Holding diltiazem 240 mg p.o. daily/home medication Holding ramipril 5 mg p.o. daily for hypertension with acute kidney injury Resp: MUNA -nocturnal CPAP 8 cm H2O Moderate right pleural effusion Extubated 01/02. Currently on BiPAP 12/ and 40% Wean simple mask as tolerated Follow-up chest x-ray in a.m. 01/03 Currently furosemide drip at 5 mg an hour Acapella every 6 hours levalbuterol 1.25 mg NEB q6h GI: Gastroesophageal reflux disease Elevated transaminases Advance diet as tolerated Continue pantoprazole 20 mg p.o. daily for gastroesophageal disease. On omeprazole 20 mg p.o. daily at home Docusate sodium/senna 1 tablet twice daily for bowel regimen Follow transaminases intermittently is likely congestion. Further workup and : BPH/overflow Andrade catheter has been placed for accurate I's and O's in a critically ill patient Continue doxazosin 4 mg daily and bethanechol 25 mg daily Endo: Diabetes mellitus Hypothyroidism Low testosterone Currently on insulin detemir 12 units twice daily with NovoLog sliding scale insulin/low regimen before meals at bedtime At home on insulin glargine 12 units twice daily with sliding scale insulin Continue levothyroxine 125 mcg p.o. daily. TSH 3.06 Holding testosterone Renal: Acute kidney injury likely secondary to cardiorenal syndrome Followed by nephrology. Monitor urine output Accurate I's and O's. Check renal ultrasound and urine eosinophils and electrolytes Heme: Chronic apixaban use Normocytic normochromic anemia Thrombocytopenia Currently renally dose of 2.5 mg twice daily. Hold today possible thoracentesis in a.m. Monitor CBC daily. Follow trends ID: Monitor for infection FEN: Replace electrolytes as clinically indicated MSK: Osteoporosis/osteoarthritis PT evaluate and treat Access -Utilize peripheral IV. Central line if indicated Prophylaxis -GI -pantoprazole -DVT -SCD/apixaban Level 3 follow-up Marin Goodman MD Jan 02, 2018 12:31
[2018-01-02] MEDS: METOCLOPRAMIDE HCL 10 MG/2 ML VIAL IV PUSH SCH ×2 (14:35→21:06)
[2018-01-02] MEDS: PRAMIPEXOLE DIHYDROCHLORIDE 0.25 MG TAB PO SCH (20:29)
[2018-01-02] MEDS: DOXAZOSIN MESYLATE 4 MG TAB PO SCH (20:29)
[2018-01-02] MEDS: ATORVASTATIN 40 MG TAB PO SCH (20:29)
[2018-01-03] VITALS (13 sets, daily range): BP systolic 132–155; BP diastolic 63–90; PULSE 90–121; RESP 14–28; TEMP 97.7–98.8; O2SAT 93–99
[2018-01-03] MEDS: RESP: LEVALBUTEROL HYDROCHLORIDE 1.25 MG/3 ML NEB (SCH) NEB ×4 (03:40→21:27)
[2018-01-03] MEDS: METOCLOPRAMIDE HCL 10 MG/2 ML VIAL IV PUSH SCH ×3 (05:23→20:45)
[2018-01-03] MEDS: LEVOTHYROXINE SODIUM 125 MCG TAB PO SCH (05:23)
[2018-01-03 05:48] LABS: AUTOMATED NEUTROPHIL # 5.3 TH/MM3 (1.8-7.7); BASOPHIL % 0.1 % (0.0-2.0); EOSINOPHIL # 0.1 TH/MM3 (0-0.4); EOSINOPHIL % 1.7 % (0.0-4.0); HEMATOCRIT 31.2 % (39.0-51.0); HEMOGLOBIN 9.9 GM/DL (13.0-17.0); LYMPH % 12.8 % (9.0-44.0); LYMPHOCYTE # 0.9 TH/MM3 (1.0-4.8); MEAN CELL VOLUME 82.9 FL (80.0-100.0); MEAN CORPUSCULAR HEMOGLOBIN 26.3 PG (27.0-34.0); MEAN CORPUSCULAR HGB CONC 31.8 % (32.0-36.0); MONOCYTE # 0.5 TH/MM3 (0-0.9); NEUT % 78.4 % (16.0-70.0); PLATELET COUNT 148 TH/MM3 (150-450); RED BLOOD COUNT 3.76 MIL/MM3 (4.50-5.90); RED CELL DISTRIBUTION WIDTH 21.1 % (11.6-17.2); WHITE BLOOD COUNT 6.7 TH/MM3 (4.0-11.0)
[2018-01-03 06:25] LABS: ALBUMIN 3.4 GM/DL (3.4-5.0); BICARBONATE 22.6 MEQ/L (21.0-32.0); CALCIUM 8.8 MG/DL (8.5-10.1); CREATININE 3.37 MG/DL (0.60-1.30); PHOSPHORUS 4.9 MG/DL (2.5-4.9)
[2018-01-03] MEDS: FUROSEMIDE INJ 100 MG in SODIUM CHLORIDE 0.9% INJ 90 ML IV SCH (07:19)
[2018-01-03] MEDS: BETHANECHOL CHL 25 MG TAB PO SCH (08:30)
[2018-01-03] MEDS: SERTRALINE HCL 50 MG TAB PO SCH ×2 (08:30→20:45)
[2018-01-03] MEDS: AMIODARONE 200 MG TAB PO SCH (08:30)
[2018-01-03] MEDS: PANTOPRAZOLE SOD 20 MG DELAYED RELEASE TAB PO SCH (08:31)
[2018-01-03] MEDS: POLYETHYLENE GLYCOL 17 GM PKG PO SCH ×2 (08:31→20:44)
[2018-01-03] MEDS: ONDANSETRON HCL 4 MG/2 ML VIAL IV PUSH PRN (08:31)
[2018-01-03] MEDS: LACTULOSE SYRUP 20 GM/30 ML CUP PO SCH ×4 (08:31→20:45)
[2018-01-03] MEDS: SODIUM CHLORIDE 0.9% FLUSH 10 ML FLUSH IV FLUSH SCH ×2 (08:31→20:46)
[2018-01-03] MEDS: DOCUSATE SODIUM 50 MG/SENNA 8.6 MG TAB PO SCH ×2 (08:31→20:45)
[2018-01-03] MEDS: APIXABAN 2.5 MG TABLET PO SCH (09:00)
[2018-01-03] MEDS: ALLOPURINOL 100 MG TAB PO SCH (09:01)
[2018-01-03] MEDS: INSULIN ASPART SUPPLEMENTAL SCALE SQ SCH ×4 (09:09→23:16)
[2018-01-03] MEDS: INSULIN DETEMIR 100 UNITS/ML VIAL SQ SCH ×2 (09:09→20:46)
[2018-01-03] MEDS ORDERED: POTASSIUM CHLORIDE 10 MEQ CONTROLLED RELEASE TAB PO ONE (09:15)
[2018-01-03] MEDS ORDERED: DIGOXIN 0.5 MG/2 ML VIAL IV PUSH ONE ×2 (09:45→15:45)
--- NOTE | 2018-01-03 09:52 | RADRPT ---
EXAM DATE/TIME: 01/03/2018 09:20 [facility] COMPARISON: CHEST SINGLE AP, January 02, 2018, 8:24. INDICATIONS : Shortness of breath MEDICAL HISTORY : Myocardial infarction. Congestive heart failure. Hypercholesterolemia SURGICAL HISTORY : Cholecystectomy. Left cataract. Cardiac ablation. Cardiac cath ENCOUNTER: Subsequent ACUITY: 4 - 6 days PAIN SCORE: 0/10 LOCATION: Bilateral chest FINDINGS: A single AP semierect view of the chest was obtained and again demonstrates moderate cardiomegaly. Montero zy opacity remains in the perihilar regions in both lung bases without significant change. The right costophrenic angle remains blunted. Degenerative changes noted in the thoracic spine. There are multi ple overlying electrocardiogram leads. CONCLUSION: No significant change. Bilateral parenchymal opacities remain with apparent right eff usion. John Neville MD on January 03, 2018 at 9:48 Board Certified Radiologist. This report was verified electronically.
--- NOTE | 2018-01-03 09:56 | RADRPT ---
EXAM DATE/TIME: 01/03/2018 09:24 [facility] COMPARISON: ABDOMEN KUB ONLY, January 02, 2018, 8:29. INDICATIONS : Abdominal distension. Followup abnormal bowel gas pattern. MEDICAL HISTORY : Myocardial infarction. Congestive heart failure. Hypercholesterolemia SURGICAL HISTORY : Cholecystectomy. Left cataract. Cardiac ablation. Cardiac cath ENCOUNTER: Subsequent ACUITY: 4 - 6 days PAIN SCORE: 0/10 LOCATION: Bilateral abdomen FINDINGS: 3 AP supine views of the abdomen and pelvis were obtained and again demonstrate multiple loops of bor derline dilated air-containing small bowel in the abdomen. Gas is again noted in portions of the desc ending and transverse colon. There is no free air. The bony structures are intact. CONCLUSION: No significant change. John Neville MD on January 03, 2018 at 9:52 Board Certified Radiologist. This report was verified electronically.
--- NOTE | 2018-01-03 09:56 | HHI.CCPN ---
Subjective Remarks/Hospital Course 72-year-old gentleman with multiple medical problems including morbid obesity, obstructive sleep apnea, diabetes mellitus, and chronic kidney insufficiency, underwent cardiac ablation for uncontrolled A. fib. Patient was intubated for procedure, and is transferred to ICU postprocedure for weaning of the mechanical ventilation due to increased abdominal girth. 01/01: Afebrile. Patient extremely agitated with weaning sedation. Currently on PSV trial.. Chest x-ray revealed moderate size right pleural effusion. Currently in sinus rhythm 01/02: Started on BiPAP overnight 09/09 at 50% Furosemide gtt not initiated until this AM. Will attempt to diurese. Will possibly need thoracentesis in a.m. when off apixaban 24 hours. Possible ileus on CAT scan. Started on metoclopramide SUBJECTIVE: 01/03: Resting comfortably in bed in no acute distress. Abdomen appears more distended today. Currently on high flow nasal cannula 35 L 70% which is off the side not in his nares satting 89%. Objective Vital Signs Date Time Temp Pulse Resp B/P (MAP) Pulse Ox O2 Delivery O2 Flow Rate FiO2 01/03/18 08:28 96 High Flow Nasal Cannula 35.00 70 01/03/18 06:00 105 01/03/18 04:00 97.7 18 132/71 (91) Intake and Output 01/03/18 01/03/18 01/04/18 08:00 16:00 00:00 Intake Total 1060 ml Output Total 1025 ml Balance 35 ml Result Diagram: 01/03/18 0518 01/03/18 0518 Imaging Last Impressions Chest X-Ray 01/02/18 0000 Signed Impressions: Service Date/Time: Tuesday, January 02, 2018 08:24 - CONCLUSION: Interval extubation. Otherwise stable aeration. Lito Adkins MD Abdomen X-Ray 01/02/18 0000 Signed Impressions: Service Date/Time: Tuesday, January 02, 2018 08:29 - CONCLUSION: Nonspecific bowel gas pattern most recent of an ileus. John Neville MD Renal Ultrasound 01/01/18 0000 Signed Impressions: Service Date/Time: December 18:16 - CONCLUSION: 1. No evidence of hydronephrosis. 2. No new or significant changes compared to the prior exam 3. 2.2 cm right renal cyst. Luiz Frey MD Objective Remarks GENERAL: 72-year-old male currently on high flow nasal cannula in no acute distress SKIN: Warm and dry. HEAD: Normocephalic. EYES: No scleral icterus. No injection or drainage. NECK: Supple, trachea midline. No JVD or lymphadenopathy. CARDIOVASCULAR: Tachycardic, irregular. S1, S2 no S4. Distant. RESPIRATORY: Diminished breath sounds right lower lobe. No wheezing is appreciated GASTROINTESTINAL: Abdomen protuberant/obese/distended. Hypoactive bowel sounds are present MUSCULOSKELETAL: Trace to 1+ lower extremity edema. NEURO EXAM: Cranial nerves II through XII grossly intact. Strength is equal symmetric. Normal sensation Urinary Catheter: No Assessment to: Continue Vascular Central Line Catheter: No Assessment to: Continue A/P Assessment and Plan Neuro/Psych: Depression/anxiety Chronic narcotic use Continue sertraline 50 mg twice daily/home medication for depression Continue pramipexole 0.5 mg p.o. daily for experimental side effects Currently holding buspirone 5 mg 3 times daily anxiety On oxycodone/acetaminophen 5/325 1 - 2 tablets every 4 hours as needed pain CV: Status post ablation for A. fib/flutter Chronic diastolic heart failure ejection fraction 45-50% 08/22 Hypertension Dyslipidemia Continue amiodarone 200 mg by mouth daily Continue atorvastatin 40 mg p.o. daily for his lipidemia Order fish oil/cholecalciferol 1200/1000 1 tablet twice daily/home medication Holding diltiazem 240 mg p.o. daily/home medication Holding ramipril 5 mg p.o. daily for hypertension with acute kidney injury We will give 2 doses of digoxin 0.25 mg. Recheck in a.m. level Notify cardiology Resp: MUNA -nocturnal CPAP 8 cm H2O Moderate right pleural effusion Extubated 01/02. Currently on high flow nasal cannula 70%/35 L Wean O2 as tolerated Follow-up chest x-ray in a.m 01/04 Currently furosemide drip at 5 mg an hour Acapella every 6 hours levalbuterol 1.25 mg NEB q6h GI: Gastroesophageal reflux disease Elevated transaminases Ileus Advance diet as tolerated. 220 ADA diet Continue pantoprazole 20 mg p.o. daily for gastroesophageal disease. On omeprazole 20 mg p.o. daily at home Docusate sodium/senna 1 tablet twice daily for bowel regimen with polyethylene glycol 17 g twice daily and lactulose 30 cc 4 times daily Follow transaminases intermittently is likely congestion. Further workup and On metoclopramide 5 mg IV every 8 hours Soapsuds enema 1 today KUB reveals small bowel/transverse and descending colon air filled loops : BPH/overflow Andrade catheter has been placed for accurate I's and O's in a critically ill patient Continue doxazosin 4 mg daily and bethanechol 25 mg daily Endo: Diabetes mellitus Hypothyroidism Low testosterone Currently on insulin detemir 12 units twice daily with NovoLog sliding scale insulin/low regimen before meals at bedtime At home on insulin glargine 12 units twice daily with sliding scale insulin Continue levothyroxine 125 mcg p.o. daily. TSH 3.06 Holding testosterone Renal: Acute kidney injury likely secondary to cardiorenal syndrome Renal cyst right 2.2 cm Followed by nephrology. Monitor urine output Accurate I's and O's. Renal ultrasound with no hydronephrosis. Right renal cyst 2.2 cm. Rare eosinophils urine. Heme: Chronic apixaban use Normocytic normochromic anemia Thrombocytopenia Currently renally dose of 2.5 mg twice daily. Hold today possible thoracentesis in a.m. Monitor CBC daily. Follow trends ID: Monitor for infection FEN: Hypokalemia Replace electrolytes as clinically indicated 30 mEq KCl p.o. 1 now. MSK: Osteoporosis/osteoarthritis PT evaluate and treat Access -Utilize peripheral IV. Central line if indicated Prophylaxis -GI -pantoprazole -DVT -SCD/apixaban Level 3 follow-up Marin Goodman MD Jan 03, 2018 09:56
[2018-01-03] MEDS ORDERED: METHYLNALTREXONE BROMIDE 12 MG/0.6 ML VIAL SQ ONE (10:30)
--- NOTE | 2018-01-03 12:13 | HHI.NPPN ---
Subjective History of Present Illness 72 year old male with Chf/Atrial tachycardia/Afib admitted with Tachyarrhythmia Additional Remarks Patient is alert, sitting on the chair, mild SOB, not in distress. Review of Systems General Constitutional: Fatigue Objective Data Data 01/03/18 01/04/18 19:00 07:00 Intake Total 100 ml Balance 100 ml IV Total 100 ml Vital Signs Date Time Temp Pulse Resp B/P (MAP) Pulse Ox O2 Delivery O2 Flow Rate FiO2 01/03/18 08:28 96 High Flow Nasal Cannula 35.00 70 01/03/18 08:00 98.8 114 28 140/88 (105) 96 01/03/18 08:00 100 Nasal Cannula 35.00 60 Humidified 01/03/18 06:00 105 01/03/18 04:00 108 01/03/18 04:00 97.7 108 18 132/71 (91) 98 01/03/18 04:00 Nasal Cannula 40.00 80 Humidified 01/03/18 03:40 99 High Flow Nasal Cannula 40.00 80 01/03/18 02:00 102 01/03/18 00:00 98.7 90 14 155/69 (97) 98 01/03/18 00:00 Nasal Cannula 40.00 100 Humidified 01/03/18 00:00 100 01/02/18 22:30 100 High Flow Nasal Cannula 40.00 100 01/02/18 22:30 Nasal Cannula 40.00 100 Humidified 01/02/18 22:00 107 01/02/18 20:00 100 Nasal Cannula 01/02/18 20:00 90 01/02/18 20:00 97.8 90 16 117/70 (86) 100 01/02/18 18:00 94 01/02/18 16:00 98.3 94 20 129/78 (95) 99 01/02/18 16:00 99 Bi-Pap 60 01/02/18 16:00 94 01/02/18 14:00 92 -: 01/03/18 0518 01/03/18 0518 Physical Exam General Appearance: Well Developed, Well Nourished, No Acute Distress, Comfortable Neck Neck Exam: Neck Supple Pulmonary Resp Exam: No Distress, Crackles, Rhonchi, Decreased Bases, Diminished Breath Sounds Cardiology CV Exam: Tachycardia Gastrointestinal/Abdomen GI Exam: Soft, Non-Tender, Bowel Sounds Present Extremeties Extremities Exam: Moderate Edema, Pitting Edema Neurologic Neuro Exam: Alert, Awake Assessment/Plan Problem List: (1) Acute renal failure ICD Codes: N17.9 - Acute kidney failure, unspecified Status: Acute Plan: Patient has cardiogenic shock and low blood pressure contributing, and cardiorenal syndrome Plan is to cardiovert him once he is stable on Eliquis He has underlying tachyarrhythmia Atrial fibrillation/atrial tachycardia s/p cardiac Ablation Urine output is adequate, on Lasix drip, continue same. Creatinine is slightly better. BP is now stable. (2) Chronic kidney disease, stage III (moderate) ICD Codes: N18.3 - Chronic kidney disease, stage III (moderate) Status: Acute Plan: Baseline care around 1.7 (3) Congestive heart failure ICD Codes: I50.9 - Heart failure, unspecified Status: Acute Plan: He is in cardiogenic shock low blood pressure causing the cardiorenal syndrome (4) PAF (paroxysmal atrial fibrillation) ICD Codes: I48.0 - Paroxysmal atrial fibrillation Plan: Cardiology was following (5) Diabetes ICD Codes: E11.9 - Diabetes Status: Chronic Plan: Monitor blood glucose (6) Acute on chronic systolic CHF (congestive heart failure) ICD Codes: I50.23 - Acute on chronic systolic (congestive) heart failure Problem Qualifiers (1) Congestive heart failure: Qualified Codes: I50.9 - Heart failure, unspecified Eden Butler MD Jan 03, 2018 12:13
--- NOTE | 2018-01-03 12:56 | PD.CARD.PN ---
Subjective Subjective Remarks no angina Objective Medications Current Medications Medications (Trade) Dose Ordered Sig/Az Route Start Time Stop Time Status Last Admin (D50w (Vial) Inj) 50 ml UNSCH PRN IV PUSH 12/28/17 07:00 (Glucagon Inj) 1 mg UNSCH PRN OTHER 12/28/17 07:00 (NovoLOG SUPPLEMENTAL SCALE) 1 ACHS SLIDING SCALE SQ 12/28/17 08:00 01/03/18 12:41 (NS Flush) 2 ml UNSCH PRN IV FLUSH 12/28/17 07:00 12/31/17 13:08 (NS Flush) 2 ml BID IV FLUSH 12/28/17 09:00 01/03/18 08:31 (Tylenol) 650 mg Q6H PRN PO 12/28/17 07:00 (Delaney-Colace) 1 tab BID PO 12/28/17 09:00 01/03/18 08:31 (Senokot) 17.2 mg Q12H PRN PO 12/28/17 07:00 (Dulcolax Supp) 10 mg DAILY PRN RECTAL 12/28/17 07:00 (Cordarone) 200 mg DAILY PO 12/28/17 09:00 01/03/18 08:30 (Lipitor) 40 mg HS PO 12/28/17 21:00 01/02/18 20:29 (Cardura) 4 mg HS PO 12/28/17 21:00 01/02/18 20:29 (Levemir Inj) 12 units BID SQ 12/28/17 09:00 01/03/18 09:09 (Synthroid) 125 mcg DAILY@0600 PO 12/28/17 07:00 01/03/18 05:23 (Zoloft) 50 mg BID PO 12/28/17 09:00 01/03/18 08:30 (Protonix) 20 mg DAILY PO 12/28/17 09:00 01/03/18 08:31 (Mirapex) 0.5 mg HS PO 12/28/17 21:00 01/02/18 20:29 (Percocet 5-325 Mg) 1 tab Q4H PRN PO 12/31/17 19:30 (Percocet 5-325 Mg) 2 tab Q4H PRN PO 12/31/17 19:30 01/02/18 21:06 (Atropine Inj) 0.5 mg UNSCH PRN IV PUSH 12/31/17 19:30 (Zofran Inj) 4 mg Q4H PRN IV PUSH 12/31/17 19:30 01/03/18 08:31 (Eliquis) 2.5 mg BID PO 01/01/18 09:00 01/02/18 20:29 (Zyloprim) 100 mg DAILY PO 01/02/18 09:00 01/03/18 09:01 (Urecholine) 25 mg DAILY PO 01/02/18 09:00 01/03/18 08:30 Patient Own Medication PT OWN MED: NIACINAM... DAILY PO 01/02/18 09:00 Future Hold (Chloraseptic [place]) 2 spray Q2H PRN OROPHARYNG 01/01/18 12:00 Furosemide 100 mg/ Sodium Chloride 100 ml @ 5 mls/hr CONTINUOUS IV 01/01/18 18:00 01/03/18 07:19 (Miralax) 17 gm BID PO 01/02/18 09:00 01/03/18 08:31 (Lactulose Liq) 30 ml QID PO 01/02/18 09:00 01/03/18 12:27 (Xopenex Neb) 1.25 mg Q6HR NEB NEB 01/02/18 10:00 01/03/18 08:27 (Reglan Inj) 5 mg Q8HR IV PUSH 01/02/18 14:00 01/03/18 05:23 (Lanoxin Inj) 0.25 mg ONCE ONCE IV PUSH 01/03/18 15:45 01/03/18 15:46 Vital Signs / I&O Vital Signs Date Time Temp Pulse Resp B/P (MAP) Pulse Ox O2 Delivery O2 Flow Rate FiO2 01/03/18 08:28 96 High Flow Nasal Cannula 35.00 70 01/03/18 08:00 98.8 114 28 140/88 (105) 96 01/03/18 08:00 100 Nasal Cannula 35.00 60 Humidified 01/03/18 06:00 105 01/03/18 04:00 108 01/03/18 04:00 97.7 108 18 132/71 (91) 98 01/03/18 04:00 Nasal Cannula 40.00 80 Humidified 01/03/18 03:40 99 High Flow Nasal Cannula 40.00 80 01/03/18 02:00 102 01/03/18 00:00 98.7 90 14 155/69 (97) 98 01/03/18 00:00 Nasal Cannula 40.00 100 Humidified 01/03/18 00:00 100 01/02/18 22:30 100 High Flow Nasal Cannula 40.00 100 01/02/18 22:30 Nasal Cannula 40.00 100 Humidified 01/02/18 22:00 107 01/02/18 20:00 100 Nasal Cannula 01/02/18 20:00 90 01/02/18 20:00 97.8 90 16 117/70 (86) 100 01/02/18 18:00 94 01/02/18 16:00 98.3 94 20 129/78 (95) 99 01/02/18 16:00 99 Bi-Pap 60 01/02/18 16:00 94 01/02/18 14:00 92 I/O 01/02/18 01/02/18 01/02/18 01/03/18 01/03/18 01/03/18 07:00 15:00 23:00 07:00 15:00 23:00 Intake Total 330 ml 480 ml 960 ml 100 ml Output Total 1500 ml 975 ml 1025 ml Balance -1170 ml -495 ml -65 ml 100 ml Intake Oral 330 ml 480 ml 960 ml IV Total 100 ml Output Urine Total 1500 ml 975 ml 1025 ml # Bowel Movements 0 0 0 Physical Exam alert Chest diminished ate bases CV S1S2 irr irr - tele Afib Abd severely distended. Faint BS No edema Laboratory Laboratory Tests Test 01/03/18 05:18 White Blood Count 6.7 TH/MM3 Red Blood Count 3.76 MIL/MM3 Hemoglobin 9.9 GM/DL Hematocrit 31.2 % Mean Corpuscular Volume 82.9 FL Mean Corpuscular Hemoglobin 26.3 PG Mean Corpuscular Hemoglobin Concent 31.8 % Red Cell Distribution Width 21.1 % Platelet Count 148 TH/MM3 Mean Platelet Volume 9.0 FL Neutrophils (%) (Auto) 78.4 % Lymphocytes (%) (Auto) 12.8 % Monocytes (%) (Auto) 7.0 % Eosinophils (%) (Auto) 1.7 % Basophils (%) (Auto) 0.1 % Neutrophils # (Auto) 5.3 TH/MM3 Lymphocytes # (Auto) 0.9 TH/MM3 Monocytes # (Auto) 0.5 TH/MM3 Eosinophils # (Auto) 0.1 TH/MM3 Basophils # (Auto) 0.0 TH/MM3 CBC Comment DIFF FINAL Differential Comment Blood Urea Nitrogen 90 MG/DL Creatinine 3.37 MG/DL Random Glucose 152 MG/DL Albumin 3.4 GM/DL Calcium Level 8.8 MG/DL Phosphorus Level 4.9 MG/DL Sodium Level 142 MEQ/L Potassium Level 3.3 MEQ/L Chloride Level 107 MEQ/L Carbon Dioxide Level 22.6 MEQ/L Anion Gap 12 MEQ/L Estimat Glomerular Filtration Rate 18 ML/MIN Imaging Last 24 hours Impressions Chest X-Ray 01/03/18 0000 Signed Impressions: Service Date/Time: Wednesday, January 03, 2018 09:20 - CONCLUSION: No significant change. Bilateral parenchymal opacities remain with apparent right effusion. John Neville MD Abdomen X-Ray 01/03/18 0000 Signed Impressions: Service Date/Time: Wednesday, January 03, 2018 09:24 - CONCLUSION: No significant change. John Neville MD Assessment and Plan Problem List: (1) Ileus ICD Codes: K56.7 - Ileus, unspecified (2) PAF (paroxysmal atrial fibrillation) ICD Codes: I48.0 - Paroxysmal atrial fibrillation Plan: recurrent since last ablation Assessment and Plan Dr. Garcia to F/U Friday Ajit Ramirez MD Jan 03, 2018 12:56
[2018-01-03] MEDS ORDERED: DIATRIZOATE MEGLUM/DIATRIZOATE SOD 9 ML CUP PO ONE (15:49)
[2018-01-03] MEDS: DOXAZOSIN MESYLATE 4 MG TAB PO SCH (20:45)
[2018-01-03] MEDS: ATORVASTATIN 40 MG TAB PO SCH (20:45)
[2018-01-04] VITALS (14 sets, daily range): BP systolic 126–150; BP diastolic 66–83; PULSE 90–102; RESP 16–25; TEMP 98.2–98.6; O2SAT 91–100
[2018-01-04] MEDS: RESP: LEVALBUTEROL HYDROCHLORIDE 1.25 MG/3 ML NEB (SCH) NEB ×4 (03:10→20:30)
[2018-01-04 05:19] LABS: AUTOMATED NEUTROPHIL # 3.7 TH/MM3 (1.8-7.7); BASOPHIL % 0.1 % (0.0-2.0); EOSINOPHIL # 0.1 TH/MM3 (0-0.4); EOSINOPHIL % 2.6 % (0.0-4.0); HEMATOCRIT 33.1 % (39.0-51.0); HEMOGLOBIN 10.5 GM/DL (13.0-17.0); LYMPH % 16.2 % (9.0-44.0); LYMPHOCYTE # 0.8 TH/MM3 (1.0-4.8); MEAN CELL VOLUME 83.1 FL (80.0-100.0); MEAN CORPUSCULAR HEMOGLOBIN 26.3 PG (27.0-34.0); MEAN CORPUSCULAR HGB CONC 31.6 % (32.0-36.0); MONO % 9.3 % (0.0-8.0); MONOCYTE # 0.5 TH/MM3 (0-0.9); NEUT % 71.8 % (16.0-70.0); PLATELET COUNT 146 TH/MM3 (150-450); RED BLOOD COUNT 3.98 MIL/MM3 (4.50-5.90); WHITE BLOOD COUNT 5.1 TH/MM3 (4.0-11.0)
[2018-01-04 06:06] LABS: ALBUMIN 3.2 GM/DL (3.4-5.0); ALKALINE PHOSPHATASE 93 U/L (45-117); ALT (GPT) 53 U/L (12-78); AST (GOT) 39 U/L (15-37); BICARBONATE 26.4 MEQ/L (21.0-32.0); BLOOD UREA NITROGEN 82 MG/DL (7-18); CHLORIDE 110 MEQ/L (98-107); CREATININE 2.93 MG/DL (0.60-1.30); DIGOXIN 0.7 NG/ML (0.8-2.0); GLOMERULAR FILTRATION RATE 21 ML/MIN (>89); MAGNESIUM 2.4 MG/DL (1.5-2.5); PHOSPHORUS 4.1 MG/DL (2.5-4.9); SODIUM (NA) 147 MEQ/L (136-145); TOTAL BILIRUBIN ADULT 0.9 MG/DL (0.2-1.0); TOTAL PROTEIN 6.4 GM/DL (6.4-8.2)
[2018-01-04 06:37] LABS: GLUCOSE,RANDOM 36 MG/DL (74-106)
[2018-01-04] MEDS: METOCLOPRAMIDE HCL 10 MG/2 ML VIAL IV PUSH SCH ×3 (07:06→21:57)
[2018-01-04] MEDS: FUROSEMIDE INJ 100 MG in SODIUM CHLORIDE 0.9% INJ 90 ML IV SCH (07:06)
[2018-01-04] MEDS: LEVOTHYROXINE SODIUM 125 MCG TAB PO SCH (07:06)
[2018-01-04] MEDS: INSULIN ASPART SUPPLEMENTAL SCALE SQ SCH ×4 (08:00→21:00)
[2018-01-04] MEDS ORDERED: DEXT 5%-NACL 0.45% 1000 ML INJ 1,000 ML IV SCH (08:30)
--- NOTE | 2018-01-04 08:42 | HHI.CCPN ---
Subjective Remarks/Hospital Course 72-year-old gentleman with multiple medical problems including morbid obesity, obstructive sleep apnea, diabetes mellitus, and chronic kidney insufficiency, underwent cardiac ablation for uncontrolled A. fib. Patient was intubated for procedure, and is transferred to ICU postprocedure for weaning of the mechanical ventilation due to increased abdominal girth. 01/01: Afebrile. Patient extremely agitated with weaning sedation. Currently on PSV trial.. Chest x-ray revealed moderate size right pleural effusion. Currently in sinus rhythm 01/02: Started on BiPAP overnight 09/09 at 50% Furosemide gtt not initiated until this AM. Will attempt to diurese. Will possibly need thoracentesis in a.m. when off apixaban 24 hours. Possible ileus on CAT scan. Started on metoclopramide 01/03: Resting comfortably in bed in no acute distress. Abdomen appears more distended today. Currently on high flow nasal cannula 35 L 70% which is off the side not in his nares satting 89%. SUBJECTIVE: 01/04: -1650 from NG tube overnight. Low blood sugar this a.m. noted. Will hold insulin detemir give D5 one half normal saline along with extra potassium chloride today. CT abdomen/pelvis pending. Positive BM overnight. Abdomen remains distended.. BUN and creatinine are slowly decreasing. Objective Vital Signs Date Time Temp Pulse Resp B/P (MAP) Pulse Ox O2 Delivery O2 Flow Rate FiO2 01/04/18 04:00 98.2 90 20 136/83 (100) 95 01/04/18 00:00 Nasal Cannula 30.00 40 Humidified Intake and Output 01/04/18 01/04/18 01/04/18 07:59 15:59 23:59 Output Total 3100 ml Balance -3100 ml Result Diagram: 01/04/18 0414 01/04/18 0414 Imaging Last Impressions Chest X-Ray 01/03/18 0000 Signed Impressions: Service Date/Time: Wednesday, January 03, 2018 09:20 - CONCLUSION: No significant change. Bilateral parenchymal opacities remain with apparent right effusion. John Neville MD Abdomen X-Ray 01/03/18 0000 Signed Impressions: Service Date/Time: Wednesday, January 03, 2018 09:24 - CONCLUSION: No significant change. John Neville MD Renal Ultrasound 01/01/18 0000 Signed Impressions: Service Date/Time: December 18:16 - CONCLUSION: 1. No evidence of hydronephrosis. 2. No new or significant changes compared to the prior exam 3. 2.2 cm right renal cyst. Luiz Frey MD Objective Remarks GENERAL: 72-year-old male currently on high flow nasal cannula in no acute distress SKIN: Warm and dry. HEAD: Normocephalic. EYES: No scleral icterus. No injection or drainage. NECK: Supple, trachea midline. No JVD or lymphadenopathy. CARDIOVASCULAR: Tachycardic, irregular. S1, S2 no S4. Distant. RESPIRATORY: Diminished breath sounds right lower lobe. No wheezing is appreciated GASTROINTESTINAL: Abdomen protuberant/obese/distended. Hypoactive bowel sounds are present MUSCULOSKELETAL: Trace to 1+ lower extremity edema. NEURO EXAM: Cranial nerves II through XII grossly intact. Strength is equal symmetric. Normal sensation A/P Assessment and Plan Neuro/Psych: Depression/anxiety Chronic narcotic use Continue sertraline 50 mg twice daily/home medication for depression Continue pramipexole 0.5 mg p.o. daily for experimental side effects Currently holding buspirone 5 mg 3 times daily anxiety On oxycodone/acetaminophen 5/325 1 - 2 tablets every 4 hours as needed pain CV: Status post ablation for A. fib/flutter Chronic diastolic heart failure ejection fraction 45-50% 08/22 Hypertension Dyslipidemia Continue amiodarone 200 mg by mouth daily Continue atorvastatin 40 mg p.o. daily for his lipidemia Order fish oil/cholecalciferol 1200/1000 1 tablet twice daily/home medication Holding diltiazem 240 mg p.o. daily/home medication Holding ramipril 5 mg p.o. daily for hypertension with acute kidney injury We will give 2 doses of digoxin 0.25 mg. Recheck in a.m. level Notify cardiology Resp: MUNA -nocturnal CPAP 8 cm H2O Moderate right pleural effusion Extubated 01/02. Currently on high flow nasal cannula 70%/35 L Wean O2 as tolerated Follow-up chest x-ray in a.m 01/04 Currently furosemide drip at 5 mg an hour Acapella every 6 hours levalbuterol 1.25 mg NEB q6h GI: Gastroesophageal reflux disease Elevated transaminases Ileus Currently n.p.o. except for meds and ice chips NGT to LIWS Continue pantoprazole 40 mg IV. daily for gastroesophageal disease. On omeprazole 20 mg p.o. daily at home Docusate sodium/senna 1 tablet twice daily for bowel regimen with polyethylene glycol 17 g twice daily and lactulose 30 cc 4 times daily Follow transaminases intermittently is likely congestion. Further workup and On metoclopramide 5 mg IV every 8 hours Soapsuds enema 1 today KUB reveals small bowel/transverse and descending colon air filled loops CT abdomen/pelvis revealed dilated small and large bowel. Recheck KUB in a.m. : BPH/overflow Andrade catheter has been placed for accurate I's and O's in a critically ill patient Continue doxazosin 4 mg daily and bethanechol 25 mg daily Endo: Diabetes mellitus Hypothyroidism Low testosterone Currently on insulin detemir 12 units twice daily with NovoLog sliding scale insulin/low regimen before meals at bedtime At home on insulin glargine 12 units twice daily with sliding scale insulin Continue levothyroxine 125 mcg p.o. daily. TSH 3.06 Holding testosterone Renal: Acute kidney injury likely secondary to cardiorenal syndrome Renal cyst right 2.2 cm Followed by nephrology. Monitor urine output Accurate I's and O's. Renal ultrasound with no hydronephrosis. Right renal cyst 2.2 cm. Rare eosinophils urine. Heme: Chronic apixaban use Normocytic normochromic anemia Thrombocytopenia Currently renally dose of 2.5 mg twice daily. Hold today possible thoracentesis in a.m. Monitor CBC daily. Follow trends ID: Monitor for infection FEN: Hypokalemia Hypernatremia Replace electrolytes as clinically indicated MSK: Osteoporosis/osteoarthritis PT evaluate and treat Access -Utilize peripheral IV. Central line if indicated Prophylaxis -GI -pantoprazole -DVT -SCD/apixaban Level 3 follow-up Marin Goodman MD Jan 04, 2018 08:42
[2018-01-04] MEDS: APIXABAN 2.5 MG TABLET PO SCH ×2 (09:00→21:53)
[2018-01-04] MEDS ORDERED: METHYLNALTREXONE BROMIDE 12 MG/0.6 ML VIAL SQ SCH (09:00)
[2018-01-04] MEDS: SODIUM CHLORIDE 0.9% FLUSH 10 ML FLUSH IV FLUSH SCH ×2 (09:00→21:56)
[2018-01-04] MEDS: PANTOPRAZOLE SOD 20 MG DELAYED RELEASE TAB PO SCH (09:36)
[2018-01-04] MEDS: AMIODARONE 200 MG TAB PO SCH (09:36)
[2018-01-04] MEDS: POTASSIUM CHLOR 10 MEQ PREMIX 100 ML IV SCH ×3 (09:36→16:45)
[2018-01-04] MEDS: SERTRALINE HCL 50 MG TAB PO SCH ×2 (09:36→21:53)
[2018-01-04] MEDS: BETHANECHOL CHL 25 MG TAB PO SCH (09:36)
[2018-01-04] MEDS: DOCUSATE SODIUM 50 MG/SENNA 8.6 MG TAB PO SCH ×2 (09:37→21:54)
[2018-01-04] MEDS: POLYETHYLENE GLYCOL 17 GM PKG PO SCH ×2 (09:37→21:56)
[2018-01-04] MEDS: LACTULOSE SYRUP 20 GM/30 ML CUP PO SCH ×4 (09:37→21:56)
[2018-01-04] MEDS: ALLOPURINOL 100 MG TAB PO SCH (09:37)
--- NOTE | 2018-01-04 11:05 | RADRPT ---
EXAM DATE/TIME: 01/04/2018 10:34 [facility] COMPARISON: US KIDNEY/RENAL/BLADDER, January 01, 2018, 18:16. INDICATIONS : Distension, CHF, falling 02 sats ORAL CONTRAST: Patient refused oral contrast. RADIATION DOSE: 17.86 CTDIvol (mGy) MEDICAL HISTORY : Cerebrovascular disease. Cardiovascular disease Hypertension.GERD, Diabetes SURGICAL HISTORY : Cholecystectomy. ENCOUNTER: Initial ACUITY: 2 days PAIN SCALE: 7/10 LOCATION: Bilateral diffuse abdomen TECHNIQUE: Volumetric scanning of the abdomen and pelvis was performed. Using automated exposure control and ad justment of the mA and/or kV according to patient size, radiation dose was kept as low as reasonably achievable to obtain optimal diagnostic quality images. DICOM format image data is available electro nically for review and comparison. FINDINGS: LOWER LUNGS: There are small bilateral pleural effusions right greater than left. There is consolidation in both p osterior lung bases. The heart size is enlarged. Coronary artery calcifications are present. A nasoga stric tube is seen coursing through the distal esophagus and into the stomach. Tip is in the proximal duodenum. LIVER: Homogeneous density without lesion. There is no dilation of the biliary tree. No calcified gallston es. SPLEEN: Normal size without lesion. PANCREAS: Within normal limits. KIDNEYS: Normal in size and shape. There is renal calculi or hydronephrosis. The previous noted right renal c yst is again visualized. ADRENAL GLANDS: Within normal limits. VASCULAR: There is no aortic aneurysm. BOWEL/MESENTERY: There is an abnormal bowel gas pattern present with multiple loops of borderline dilated small bowel with multiple air-fluid levels. There is gaseous distention in portions of the ascending and transver se colon with air-fluid levels as well. There is no free air. There is a small amount of ascitic flui d in right paracolic gutter and pelvis. Diverticuli are noted in the sigmoid colon with no inflammato ry change. ABDOMINAL WALL: Within normal limits. RETROPERITONEUM: There is no lymphadenopathy. BLADDER: No wall thickening or mass. REPRODUCTIVE: Within normal limits. INGUINAL: There is no lymphadenopathy or hernia. MUSCULOSKELETAL: Within normal limits for patient age. CONCLUSION: 1. Abnormal bowel gas pattern most characteristic of an ileus. There is a small amount of ascitic flu id in right paracolic gutter and pelvis. 2. Bilateral pleural effusions right greater than left with consolidation in both posterior lung base s. 3. Nasogastric tube in place with the tip in the proximal duodenum. 4. Mild diverticulosis. oJhn Neville MD on January 04, 2018 at 10:59 Board Certified Radiologist. This report was verified electronically.
[2018-01-04] MEDS: PANTOPRAZOLE SODIUM 40 MG VIAL IV PUSH SCH (15:23)
--- NOTE | 2018-01-04 15:46 | HHI.NPPN ---
Subjective History of Present Illness 72 year old male with Chf/Atrial tachycardia/Afib admitted with Tachyarrhythmia Additional Remarks Patient is alert, has NGT now, with abd. distension. Review of Systems General Constitutional: Fatigue Objective Data Data Vital Signs Date Time Temp Pulse Resp B/P (MAP) Pulse Ox O2 Delivery O2 Flow Rate FiO2 01/04/18 14:00 98 01/04/18 12:30 98 Nasal Cannula 6.00 01/04/18 12:00 98 Nasal Cannula 6.00 Humidified 01/04/18 12:00 92 01/04/18 10:01 100 Non-Rebreather 100 01/04/18 10:00 102 01/04/18 08:00 97 Nasal Cannula 30.00 35 Humidified 01/04/18 08:00 98.4 98 17 126/66 (86) 97 01/04/18 08:00 98 01/04/18 04:00 98.2 90 20 136/83 (100) 95 01/04/18 00:00 98.6 100 20 150/74 (99) 95 01/04/18 00:00 100 01/04/18 00:00 95 Nasal Cannula 30.00 40 Humidified 01/03/18 22:00 106 01/03/18 21:28 94 High Flow Nasal Cannula 30.00 35 01/03/18 20:00 106 01/03/18 20:00 98.0 106 20 145/63 (90) 94 01/03/18 20:00 96 Nasal Cannula 30.00 40 Humidified 01/03/18 16:00 98.4 101 20 147/87 (107) 93 01/03/18 16:00 94 Nasal Cannula 30.00 40 Humidified -: 01/04/18 0414 01/04/18 0414 Physical Exam General Appearance: Well Developed, Well Nourished, No Acute Distress, Comfortable Neck Neck Exam: Neck Supple Pulmonary Resp Exam: No Distress, Crackles, Rhonchi, Decreased Bases, Diminished Breath Sounds Cardiology CV Exam: Tachycardia Gastrointestinal/Abdomen GI Exam: Soft, Non-Tender, Bowel Sounds Present Extremeties Extremities Exam: Moderate Edema, Pitting Edema Neurologic Neuro Exam: Alert, Awake Assessment/Plan Problem List: (1) Acute renal failure ICD Codes: N17.9 - Acute kidney failure, unspecified Status: Acute Plan: Patient has cardiogenic shock and low blood pressure contributing, and cardiorenal syndrome Plan is to cardiovert him once he is stable on Eliquis He has underlying tachyarrhythmia Atrial fibrillation/atrial tachycardia s/p cardiac Ablation Urine output is adequate, on Lasix drip, continue same. Creatinine continue to improve. Now with NGT, has ileus. (2) Chronic kidney disease, stage III (moderate) ICD Codes: N18.3 - Chronic kidney disease, stage III (moderate) Status: Acute Plan: Baseline care around 1.7 (3) Congestive heart failure ICD Codes: I50.9 - Heart failure, unspecified Status: Acute Plan: He is in cardiogenic shock low blood pressure causing the cardiorenal syndrome (4) PAF (paroxysmal atrial fibrillation) ICD Codes: I48.0 - Paroxysmal atrial fibrillation Plan: Cardiology was following (5) Diabetes ICD Codes: E11.9 - Diabetes Status: Chronic Plan: Monitor blood glucose (6) Acute on chronic systolic CHF (congestive heart failure) ICD Codes: I50.23 - Acute on chronic systolic (congestive) heart failure Problem Qualifiers (1) Congestive heart failure: Qualified Codes: I50.9 - Heart failure, unspecified Eden Butler MD Jan 04, 2018 15:46
--- NOTE | 2018-01-04 17:51 | PD.CARD.PN ---
Subjective Subjective Remarks no angina, still no BM yet Objective Medications Current Medications Medications (Trade) Dose Ordered Sig/Az Route Start Time Stop Time Status Last Admin (D50w (Vial) Inj) 50 ml UNSCH PRN IV PUSH 12/28/17 07:00 01/04/18 06:48 (Glucagon Inj) 1 mg UNSCH PRN OTHER 12/28/17 07:00 (NovoLOG SUPPLEMENTAL SCALE) 1 ACHS SLIDING SCALE SQ 12/28/17 08:00 01/03/18 23:16 (NS Flush) 2 ml UNSCH PRN IV FLUSH 12/28/17 07:00 12/31/17 13:08 (NS Flush) 2 ml BID IV FLUSH 12/28/17 09:00 01/04/18 09:00 (Tylenol) 650 mg Q6H PRN PO 12/28/17 07:00 (Delaney-Colace) 1 tab BID PO 12/28/17 09:00 01/04/18 09:37 (Senokot) 17.2 mg Q12H PRN PO 12/28/17 07:00 (Dulcolax Supp) 10 mg DAILY PRN RECTAL 12/28/17 07:00 (Cordarone) 200 mg DAILY PO 12/28/17 09:00 01/04/18 09:36 (Lipitor) 40 mg HS PO 12/28/17 21:00 01/03/18 20:45 (Cardura) 4 mg HS PO 12/28/17 21:00 01/03/18 20:45 (Levemir Inj) 12 units BID SQ 12/28/17 09:00 Future Hold 01/03/18 20:46 (Synthroid) 125 mcg DAILY@0600 PO 12/28/17 07:00 01/04/18 07:06 (Zoloft) 50 mg BID PO 12/28/17 09:00 01/04/18 09:36 (Mirapex) 0.5 mg HS PO 12/28/17 21:00 01/02/18 20:29 (Percocet 5-325 Mg) 1 tab Q4H PRN PO 12/31/17 19:30 (Percocet 5-325 Mg) 2 tab Q4H PRN PO 12/31/17 19:30 01/02/18 21:06 (Atropine Inj) 0.5 mg UNSCH PRN IV PUSH 12/31/17 19:30 (Zofran Inj) 4 mg Q4H PRN IV PUSH 12/31/17 19:30 01/03/18 08:31 (Eliquis) 2.5 mg BID PO 01/01/18 09:00 01/04/18 09:00 (Zyloprim) 100 mg DAILY PO 01/02/18 09:00 01/04/18 09:37 (Urecholine) 25 mg DAILY PO 01/02/18 09:00 01/04/18 09:36 Patient Own Medication PT OWN MED: NIACINAM... DAILY PO 01/02/18 09:00 Future Hold (Chloraseptic Campbell) 2 spray Q2H PRN OROPHARYNG 01/01/18 12:00 Furosemide 100 mg/ Sodium Chloride 100 ml @ 5 mls/hr CONTINUOUS IV 01/01/18 18:00 01/04/18 07:06 (Miralax) 17 gm BID PO 01/02/18 09:00 01/04/18 09:37 (Lactulose Liq) 30 ml QID PO 01/02/18 09:00 01/04/18 15:23 (Xopenex Neb) 1.25 mg Q6HR NEB NEB 01/02/18 10:00 01/03/18 08:27 (Reglan Inj) 5 mg Q8HR IV PUSH 01/02/18 14:00 01/04/18 15:24 Dextrose/Sodium Chloride 1,000 ml @ 84 mls/hr [id number] IV 01/04/18 08:30 01/04/18 20:24 01/04/18 08:30 (Protonix Inj) 40 mg DAILY IV PUSH 01/04/18 13:30 01/04/18 15:23 Vital Signs / I&O Vital Signs Date Time Temp Pulse Resp B/P (MAP) Pulse Ox O2 Delivery O2 Flow Rate FiO2 01/04/18 16:00 93 Nasal Cannula 6.00 Humidified 01/04/18 16:00 99 01/04/18 15:56 91 Nasal Cannula 6.00 01/04/18 14:00 98 01/04/18 12:30 98 Nasal Cannula 6.00 01/04/18 12:00 98.3 92 16 128/71 (90) 98 01/04/18 12:00 98 Nasal Cannula 6.00 Humidified 01/04/18 12:00 92 01/04/18 10:01 100 Non-Rebreather 100 01/04/18 10:00 102 01/04/18 08:00 97 Nasal Cannula 30.00 35 Humidified 01/04/18 08:00 98.4 98 17 126/66 (86) 97 01/04/18 08:00 98 01/04/18 04:00 98.2 90 20 136/83 (100) 95 01/04/18 00:00 98.6 100 20 150/74 (99) 95 01/04/18 00:00 100 01/04/18 00:00 95 Nasal Cannula 30.00 40 Humidified 01/03/18 22:00 106 01/03/18 21:28 94 High Flow Nasal Cannula 30.00 35 01/03/18 20:00 106 01/03/18 20:00 98.0 106 20 145/63 (90) 94 01/03/18 20:00 96 Nasal Cannula 30.00 40 Humidified I/O 01/03/18 01/03/18 01/03/18 01/04/18 01/04/18 01/04/18 07:00 15:00 23:00 07:00 15:00 23:00 Intake Total 960 ml 100 ml 120 ml Output Total 1025 ml 2550 ml 3100 ml Balance -65 ml 100 ml -2430 ml -3100 ml Intake Oral 960 ml 120 ml IV Total 100 ml Output Urine Total 1025 ml 900 ml 2150 ml Gastric Drainage Total 1650 ml 950 ml # Bowel Movements 0 1 Physical Exam alert Chest diminished ate bases CV S1S2 irr irr - tele Afib Abd severely distended. Faint BS 1+ edema Laboratory Laboratory Tests Test 01/04/18 04:14 White Blood Count 5.1 TH/MM3 Red Blood Count 3.98 MIL/MM3 Hemoglobin 10.5 GM/DL Hematocrit 33.1 % Mean Corpuscular Volume 83.1 FL Mean Corpuscular Hemoglobin 26.3 PG Mean Corpuscular Hemoglobin Concent 31.6 % Red Cell Distribution Width 21.0 % Platelet Count 146 TH/MM3 Mean Platelet Volume 9.0 FL Neutrophils (%) (Auto) 71.8 % Lymphocytes (%) (Auto) 16.2 % Monocytes (%) (Auto) 9.3 % Eosinophils (%) (Auto) 2.6 % Basophils (%) (Auto) 0.1 % Neutrophils # (Auto) 3.7 TH/MM3 Lymphocytes # (Auto) 0.8 TH/MM3 Monocytes # (Auto) 0.5 TH/MM3 Eosinophils # (Auto) 0.1 TH/MM3 Basophils # (Auto) 0.0 TH/MM3 CBC Comment DIFF FINAL Differential Comment Blood Urea Nitrogen 82 MG/DL Creatinine 2.93 MG/DL Random Glucose 36 MG/DL Total Protein 6.4 GM/DL Albumin 3.2 GM/DL Calcium Level 9.0 MG/DL Phosphorus Level 4.1 MG/DL Magnesium Level 2.4 MG/DL Alkaline Phosphatase 93 U/L Aspartate Amino Transf (AST/SGOT) 39 U/L Alanine Aminotransferase (ALT/SGPT) 53 U/L Total Bilirubin 0.9 MG/DL Sodium Level 147 MEQ/L Potassium Level 3.1 MEQ/L Chloride Level 110 MEQ/L Carbon Dioxide Level 26.4 MEQ/L Anion Gap 11 MEQ/L Estimat Glomerular Filtration Rate 21 ML/MIN Amylase Level 13 U/L Lipase 35 U/L Digoxin Level 0.7 NG/ML Imaging Last 24 hours Impressions Abdomen/Pelvis CT 01/04/18 0000 Signed Impressions: Service Date/Time: Thursday, January 04, 2018 10:34 - CONCLUSION: 1. Abnormal bowel gas pattern most characteristic of an ileus. There is a small amount of ascitic fluid in right paracolic gutter and pelvis. 2. Bilateral pleural effusions right greater than left with consolidation in both posterior lung bases. 3. Nasogastric tube in place with the tip in the proximal duodenum. 4. Mild diverticulosis. John Neville MD Assessment and Plan Problem List: (1) Ileus ICD Codes: K56.7 - Ileus, unspecified (2) PAF (paroxysmal atrial fibrillation) ICD Codes: I48.0 - Paroxysmal atrial fibrillation Plan: Dig 0.25 IVP (3) Hypokalemia ICD Codes: E87.6 - Hypokalemia Plan: getting IV repletion Assessment and Plan Dr. Garcia to F/U Friday Ajit Ramirez MD Jan 04, 2018 17:51
[2018-01-04] MEDS ORDERED: DIGOXIN 0.5 MG/2 ML VIAL IV PUSH ONE (18:00)
[2018-01-04] MEDS: oxyCODONE/ACETAMINOPHEN 5 MG/325 MG TAB PO PRN (21:54)
[2018-01-04] MEDS: DOXAZOSIN MESYLATE 4 MG TAB PO SCH (21:54)
[2018-01-04] MEDS: PRAMIPEXOLE DIHYDROCHLORIDE 0.25 MG TAB PO SCH ×2 (21:55→21:59)
[2018-01-04] MEDS: ATORVASTATIN 40 MG TAB PO SCH (21:55)
[2018-01-05] VITALS (13 sets, daily range): BP systolic 111–145; BP diastolic 61–88; PULSE 73–105; RESP 16–22; TEMP 97.7–99; O2SAT 98–100
[2018-01-05] MEDS: ONDANSETRON HCL 4 MG/2 ML VIAL IV PUSH PRN (02:30)
[2018-01-05] MEDS: RESP: LEVALBUTEROL HYDROCHLORIDE 1.25 MG/3 ML NEB (SCH) NEB ×2 (02:46→09:04)
[2018-01-05 05:57] LABS: BASOPHIL % 0.3 % (0.0-2.0); EOSINOPHIL # 0.2 TH/MM3 (0-0.4); EOSINOPHIL % 3.6 % (0.0-4.0); HEMATOCRIT 32.3 % (39.0-51.0); HEMOGLOBIN 10.4 GM/DL (13.0-17.0); LYMPH % 19.5 % (9.0-44.0); MEAN CELL VOLUME 82.2 FL (80.0-100.0); MEAN CORPUSCULAR HEMOGLOBIN 26.4 PG (27.0-34.0); MEAN CORPUSCULAR HGB CONC 32.1 % (32.0-36.0); MEAN PLATELET VOLUME 8.6 FL (7.0-11.0); MONO % 14.8 % (0.0-8.0); MONOCYTE # 0.7 TH/MM3 (0-0.9); NEUT % 61.8 % (16.0-70.0); PLATELET COUNT 150 TH/MM3 (150-450); RED BLOOD COUNT 3.93 MIL/MM3 (4.50-5.90); RED CELL DISTRIBUTION WIDTH 20.9 % (11.6-17.2); WHITE BLOOD COUNT 4.9 TH/MM3 (4.0-11.0)
[2018-01-05 06:29] LABS: ALBUMIN 3.1 GM/DL (3.4-5.0); ALKALINE PHOSPHATASE 87 U/L (45-117); ALT (GPT) 44 U/L (12-78); AST (GOT) 29 U/L (15-37); BLOOD UREA NITROGEN 68 MG/DL (7-18); CALCIUM 8.3 MG/DL (8.5-10.1); CHLORIDE 108 MEQ/L (98-107); CREATININE 2.55 MG/DL (0.60-1.30); GLOMERULAR FILTRATION RATE 25 ML/MIN (>89); GLUCOSE,RANDOM 229 MG/DL (74-106); MAGNESIUM 1.9 MG/DL (1.5-2.5); PHOSPHORUS 3.2 MG/DL (2.5-4.9); SODIUM (NA) 145 MEQ/L (136-145); TOTAL BILIRUBIN ADULT 0.9 MG/DL (0.2-1.0); TOTAL PROTEIN 6.2 GM/DL (6.4-8.2)
--- NOTE | 2018-01-05 06:58 | RADRPT ---
EXAM DATE/TIME: 01/05/2018 04:27 [place] COMPARISON: ABDOMEN KUB ONLY, January 03, 2018, 9:24. INDICATIONS : Abdominal distension, evaluate ileus MEDICAL HISTORY : Cardiovascular disease. Cerebrovascular disease. Hypertension. GERD, diabetic SURGICAL HISTORY : Cholecystectomy. ENCOUNTER: Subsequent ACUITY: 2 days PAIN SCORE: Non-responsive. LOCATION: Bilateral abdomen FINDINGS: A nasogastric tube descends into the stomach. There is persistent gaseous distention of bowel through out the abdomen, no significant change. Mild degenerative changes present in the spine and hips. CONCLUSION: Persistent diffuse gaseous distention of bowel loops Lito Adkins MD on January 05, 2018 at 6:55 Board Certified Radiologist. This report was verified electronically.
[2018-01-05] MEDS: METOCLOPRAMIDE HCL 10 MG/2 ML VIAL IV PUSH SCH ×3 (07:24→21:41)
[2018-01-05] MEDS: LEVOTHYROXINE SODIUM 125 MCG TAB PO SCH (07:25)
[2018-01-05] MEDS: SODIUM CHLORIDE 0.9% FLUSH 10 ML FLUSH IV FLUSH SCH ×2 (09:00→21:43)
[2018-01-05] MEDS: INSULIN ASPART SUPPLEMENTAL SCALE SQ SCH ×4 (09:24→21:00)
[2018-01-05] MEDS: SERTRALINE HCL 50 MG TAB PO SCH ×2 (09:24→21:41)
[2018-01-05] MEDS: LACTULOSE SYRUP 20 GM/30 ML CUP PO SCH ×4 (09:24→21:43)
[2018-01-05] MEDS: DOCUSATE SODIUM 50 MG/SENNA 8.6 MG TAB PO SCH ×2 (09:24→21:42)
[2018-01-05] MEDS: APIXABAN 2.5 MG TABLET PO SCH ×2 (09:24→21:43)
[2018-01-05] MEDS: BETHANECHOL CHL 25 MG TAB PO SCH (09:25)
[2018-01-05] MEDS: ALLOPURINOL 100 MG TAB PO SCH (09:25)
[2018-01-05] MEDS: AMIODARONE 200 MG TAB PO SCH (09:25)
[2018-01-05] MEDS: PANTOPRAZOLE SODIUM 40 MG VIAL IV PUSH SCH (09:25)
[2018-01-05] MEDS: POLYETHYLENE GLYCOL 17 GM PKG PO SCH ×2 (09:25→21:42)
[2018-01-05] MEDS: SODIUM CHLOR 0.45% 1000 ML INJ 1,000 ML IV SCH (10:00)
[2018-01-05] MEDS ORDERED: POTASSIUM CHLORIDE 20 MEQ PWD PACKET PO ONE (10:00)
[2018-01-05] MEDS: POTASSIUM CHLOR 10 MEQ PREMIX 100 ML IV SCH ×4 (10:31→23:45)
--- NOTE | 2018-01-05 11:09 | PD.CONS ---
HPI History of Present Illness This is a 72 year old male with DM, AF s/p ablation, on apixaban who was sent to ICU for vent weaning following procedure d/t abd girth. He was intubated for his ablation. GI has been consulted for ileus. Pt is distended. he is having n/v.CT 01/04 suggestive ileus with dialted [id number] sm bowel, ascending colon , transverse colon. KUB 01/05 shows persistent difuse gaseous distention. Pt is on reglan. Says he had BM 2 d ago. Unsure if he has ever had EGD or colonoscopy. Pt is confused, poor historian. (Jyotsna Garsia) PFSH Past Medical History Hypertension Type 2 diabetes Atrial fibrillation status post ablation on 11/10/17, cardioversion on 12/21 Sleep apnea Chronic kidney disease TIA Hypothyroidism CHF Past Surgical History Cholecystectomy (Jyotsna Garsia) Coded Allergies: penicillin G (Unverified Allergy, Severe, Hives, 12/28/17) Family History Reviewed and is noncontributory. Social History Patient denies tobacco, alcohol, or illicit drug use. (Jyotsna Garsia) Review of Systems Gastrointestinal: COMPLAINS OF: Abdominal pain, Nausea, Vomiting otherwise noncontributory (Jyotsna Garsia) GI Exam Vitals I&O Vital Signs Date Time Temp Pulse Resp B/P (MAP) Pulse Ox O2 Delivery O2 Flow Rate FiO2 01/05/18 10:00 93 01/05/18 08:00 90 01/05/18 08:00 97.7 98 18 127/76 (93) 99 01/05/18 08:00 100 Nasal Cannula 6.00 Humidified 01/05/18 06:00 94 01/05/18 04:00 100 Nasal Cannula 6.00 Humidified 01/05/18 04:00 97 01/05/18 04:00 98.7 97 16 145/69 (94) 100 01/05/18 02:00 98 01/05/18 00:00 100 Nasal Cannula 6.00 Humidified 01/05/18 00:00 73 01/05/18 00:00 98.7 95 22 137/88 (104) 100 01/04/18 22:00 98 01/04/18 20:30 99 Nasal Cannula 6.00 01/04/18 20:00 100 01/04/18 20:00 100 Nasal Cannula 6.00 Humidified 01/04/18 20:00 98.6 100 25 137/72 (93) 100 01/04/18 18:00 94 01/04/18 16:00 93 Nasal Cannula 6.00 Humidified 01/04/18 16:00 99 01/04/18 16:00 98.2 99 22 128/68 (88) 93 01/04/18 15:56 91 Nasal Cannula 6.00 01/04/18 14:00 98 01/04/18 12:30 98 Nasal Cannula 6.00 01/04/18 12:00 98.3 92 16 128/71 (90) 98 01/04/18 12:00 98 Nasal Cannula 6.00 Humidified 01/04/18 12:00 92 I/O 01/04/18 01/04/18 01/04/18 01/05/18 01/05/18 01/05/18 07:00 15:00 23:00 07:00 15:00 23:00 Intake Total 100 ml Output Total 3100 ml 4050 ml 1450 ml Balance -3100 ml -3950 ml -1450 ml Intake Oral 100 ml Output Urine Total 2150 ml 2800 ml 1350 ml Gastric Drainage Total 950 ml 1250 ml 100 ml # Bowel Movements 0 0 Imaging Last Impressions Abdomen X-Ray 01/05/18 0600 Signed Impressions: Service Date/Time: Friday, January 05, 2018 04:27 - CONCLUSION: Persistent diffuse gaseous distention of bowel loops Lito Adkins MD Abdomen/Pelvis CT 01/04/18 0000 Signed Impressions: Service Date/Time: Thursday, January 04, 2018 10:34 - CONCLUSION: 1. Abnormal bowel gas pattern most characteristic of an ileus. There is a small amount of ascitic fluid in right paracolic gutter and pelvis. 2. Bilateral pleural effusions right greater than left with consolidation in both posterior lung bases. 3. Nasogastric tube in place with the tip in the proximal duodenum. 4. Mild diverticulosis. John Neville MD Chest X-Ray 01/03/18 0000 Signed Impressions: Service Date/Time: Wednesday, January 03, 2018 09:20 - CONCLUSION: No significant change. Bilateral parenchymal opacities remain with apparent right effusion. John Neville MD Renal Ultrasound 01/01/18 0000 Signed Impressions: Service Date/Time: December 18:16 - CONCLUSION: 1. No evidence of hydronephrosis. 2. No new or significant changes compared to the prior exam 3. 2.2 cm right renal cyst. Luiz Frey MD Laboratory Test 01/05/18 04:58 White Blood Count 4.9 TH/MM3 Red Blood Count 3.93 MIL/MM3 Hemoglobin 10.4 GM/DL Hematocrit 32.3 % Mean Corpuscular Volume 82.2 FL Mean Corpuscular Hemoglobin 26.4 PG Mean Corpuscular Hemoglobin Concent 32.1 % Red Cell Distribution Width 20.9 % Platelet Count 150 TH/MM3 Mean Platelet Volume 8.6 FL Neutrophils (%) (Auto) 61.8 % Lymphocytes (%) (Auto) 19.5 % Monocytes (%) (Auto) 14.8 % Eosinophils (%) (Auto) 3.6 % Basophils (%) (Auto) 0.3 % Neutrophils # (Auto) 3.0 TH/MM3 Lymphocytes # (Auto) 1.0 TH/MM3 Monocytes # (Auto) 0.7 TH/MM3 Eosinophils # (Auto) 0.2 TH/MM3 Basophils # (Auto) 0.0 TH/MM3 CBC Comment DIFF FINAL Differential Comment Blood Urea Nitrogen 68 MG/DL Creatinine 2.55 MG/DL Random Glucose 229 MG/DL Total Protein 6.2 GM/DL Albumin 3.1 GM/DL Calcium Level 8.3 MG/DL Phosphorus Level 3.2 MG/DL Magnesium Level 1.9 MG/DL Alkaline Phosphatase 87 U/L Aspartate Amino Transf (AST/SGOT) 29 U/L Alanine Aminotransferase (ALT/SGPT) 44 U/L Total Bilirubin 0.9 MG/DL Sodium Level 145 MEQ/L Potassium Level 3.0 MEQ/L Chloride Level 108 MEQ/L Carbon Dioxide Level 29.0 MEQ/L Anion Gap 8 MEQ/L Estimat Glomerular Filtration Rate 25 ML/MIN Physical Examination HEENT: PERRL; normocephalic; atraumatic; no jaundice. NGT CHEST: diminished CARDIAC: irr HR ABDOMEN: firm, distended, tympanitic, diffusely TTP, BS hypoactive EXTREMITIES: No clubbing, cyanosis; + BLE edema SKIN: Normal; no rash; no jaundice. ELECTRICAL AND INSTRUMENTATION MANAGER: oriented to self and place (Sun,Jyotsna S [employer]ELING SUPERVISOR) Assessment and Plan Plan ASSESSMENT - abd distention, n/v - visibly distended, tympanitic. imaging suggestive ileus. no BM 2 d, minimal flatus. on reglan, enema is pending. - CHF, MUNA, AF S/P ablation, DANA per [facility] PLAN - NGT to LIWS - await enema - continue reglan - if no BM today, may need decompressive colonoscopy tomorrow -if he is having decompressive colonoscopy tomorrow can stop apixaban tonight, d /w Dr Goodman - keep NPO - further recs to follow pt seen by myself and Dr Bella and this note is on his behalf (Jyotsna Garsia) Physician Comments Seen and examined with BERNICE, bowel regimen ordered for today including enemas and manual disimpaction. Decompression colonoscopy planned for tomorrow. Relistore SQ today. Discussed with nurse and patient. Thank you (Juan Manuel Bella MD) Jyotsna Garsia Jan 05, 2018 11:09 Juan Manuel Bella MD Jan 05, 2018 16:48
[2018-01-05] MEDS ORDERED: ERYTHROMYCIN EC 333 MG TABEC PO SCH (14:00)
--- NOTE | 2018-01-05 14:11 | HHI.NPPN ---
Subjective History of Present Illness 72 year old male with Chf/Atrial tachycardia/Afib admitted with Tachyarrhythmia Additional Remarks Patient is alert, has NGT now, with abd. distension. Review of Systems General Constitutional: Fatigue Objective Data Data Vital Signs Date Time Temp Pulse Resp B/P (MAP) Pulse Ox O2 Delivery O2 Flow Rate FiO2 01/05/18 10:00 93 01/05/18 08:00 90 01/05/18 08:00 97.7 98 18 127/76 (93) 99 01/05/18 08:00 100 Nasal Cannula 6.00 Humidified 01/05/18 06:00 94 01/05/18 04:00 100 Nasal Cannula 6.00 Humidified 01/05/18 04:00 97 01/05/18 04:00 98.7 97 16 145/69 (94) 100 01/05/18 02:00 98 01/05/18 00:00 100 Nasal Cannula 6.00 Humidified 01/05/18 00:00 73 01/05/18 00:00 98.7 95 22 137/88 (104) 100 01/04/18 22:00 98 01/04/18 20:30 99 Nasal Cannula 6.00 01/04/18 20:00 100 01/04/18 20:00 100 Nasal Cannula 6.00 Humidified 01/04/18 20:00 98.6 100 25 137/72 (93) 100 01/04/18 18:00 94 01/04/18 16:00 93 Nasal Cannula 6.00 Humidified 01/04/18 16:00 99 01/04/18 16:00 98.2 99 22 128/68 (88) 93 01/04/18 15:56 91 Nasal Cannula 6.00 -: 01/05/18 0458 01/05/18 0458 Physical Exam General Appearance: Well Developed, Well Nourished, No Acute Distress, Comfortable Neck Neck Exam: Neck Supple Pulmonary Resp Exam: No Distress, Crackles, Rhonchi, Decreased Bases, Diminished Breath Sounds Cardiology CV Exam: Tachycardia Gastrointestinal/Abdomen GI Exam: Soft, Non-Tender, Bowel Sounds Present Extremeties Extremities Exam: Moderate Edema, Pitting Edema Neurologic Neuro Exam: Alert, Awake Assessment/Plan Problem List: (1) Acute renal failure ICD Codes: N17.9 - Acute kidney failure, unspecified Status: Acute Plan: Patient has cardiogenic shock and low blood pressure contributing, and cardiorenal syndrome Plan is to cardiovert him once he is stable on Eliquis He has underlying tachyarrhythmia Atrial fibrillation/atrial tachycardia s/p cardiac Ablation Urine output is adequate, on Lasix drip, will stop it was diuresing well edema is better Potassium low replaced had ileus Creatinine continue to improve. Now with NGT, has ileus. (2) Chronic kidney disease, stage III (moderate) ICD Codes: N18.3 - Chronic kidney disease, stage III (moderate) Status: Acute Plan: Baseline care around 1.7 (3) Congestive heart failure ICD Codes: I50.9 - Heart failure, unspecified Status: Acute Plan: He is in cardiogenic shock low blood pressure causing the cardiorenal syndrome (4) PAF (paroxysmal atrial fibrillation) ICD Codes: I48.0 - Paroxysmal atrial fibrillation Plan: Cardiology was following (5) Diabetes ICD Codes: E11.9 - Diabetes Status: Chronic Plan: Monitor blood glucose (6) Acute on chronic systolic CHF (congestive heart failure) ICD Codes: I50.23 - Acute on chronic systolic (congestive) heart failure Problem Qualifiers (1) Congestive heart failure: Qualified Codes: I50.9 - Heart failure, unspecified Susan Solo MD Jan 05, 2018 14:11
[2018-01-05] MEDS ORDERED: METHYLNALTREXONE BROMIDE 12 MG/0.6 ML VIAL SQ ONE (16:30)
[2018-01-05] MEDS ORDERED: MAGNESIUM CITRATE SOLN 300 ML BTL PO ONE (16:30)
[2018-01-05] MEDS: ERYTHROMYCIN EC 250 MG TABEC PO SCH ×2 (18:42→21:42)
[2018-01-05] MEDS: PRAMIPEXOLE DIHYDROCHLORIDE 0.25 MG TAB PO SCH (21:00)
[2018-01-05] MEDS: ATORVASTATIN 40 MG TAB PO SCH (21:41)
[2018-01-05] MEDS: DOXAZOSIN MESYLATE 4 MG TAB PO SCH (21:43)
--- NOTE | 2018-01-05 22:42 | HHI.CCPN ---
Subjective Remarks/Hospital Course 72-year-old gentleman with multiple medical problems including morbid obesity, obstructive sleep apnea, diabetes mellitus, and chronic kidney insufficiency, underwent cardiac ablation for uncontrolled A. fib. Patient was intubated for procedure, and is transferred to ICU postprocedure for weaning of the mechanical ventilation due to increased abdominal girth. 01/01: Afebrile. Patient extremely agitated with weaning sedation. Currently on PSV trial.. Chest x-ray revealed moderate size right pleural effusion. Currently in sinus rhythm 01/02: Started on BiPAP overnight 09/09 at 50% Furosemide gtt not initiated until this AM. Will attempt to diurese. Will possibly need thoracentesis in a.m. when off apixaban 24 hours. Possible ileus on CAT scan. Started on metoclopramide 01/03: Resting comfortably in bed in no acute distress. Abdomen appears more distended today. Currently on high flow nasal cannula 35 L 70% which is off the side not in his nares satting 89%. 01/04: -1650 from NG tube overnight. Low blood sugar this a.m. noted. Will hold insulin detemir give D5 one half normal saline along with extra potassium chloride today. CT abdomen/pelvis pending. Positive BM overnight. Abdomen remains distended.. BUN and creatinine are slowly decreasing. SUBJECTIVE: 01/05: Another emesis today. Will likely need EGD/colonoscopy in a.m. Holding apixaban. Did not tolerate mag citrate. Abdomen remains distended without BM. Objective Vital Signs Date Time Temp Pulse Resp B/P (MAP) Pulse Ox O2 Delivery O2 Flow Rate FiO2 01/05/18 20:15 98 Nasal Cannula 6.00 01/05/18 18:00 80 01/05/18 16:00 99.0 20 111/66 (81) 01/04/18 10:01 100 Intake and Output 01/05/18 01/05/18 01/06/18 08:00 16:00 00:00 Intake Total 200 ml Output Total 1450 ml Balance -1450 ml 200 ml Result Diagram: 01/05/18 0458 01/05/18 0458 Imaging Last Impressions Abdomen X-Ray 01/05/18 0600 Signed Impressions: Service Date/Time: Friday, January 05, 2018 04:27 - CONCLUSION: Persistent diffuse gaseous distention of bowel loops Lito Adkins MD Abdomen/Pelvis CT 01/04/18 0000 Signed Impressions: Service Date/Time: Thursday, January 04, 2018 10:34 - CONCLUSION: 1. Abnormal bowel gas pattern most characteristic of an ileus. There is a small amount of ascitic fluid in right paracolic gutter and pelvis. 2. Bilateral pleural effusions right greater than left with consolidation in both posterior lung bases. 3. Nasogastric tube in place with the tip in the proximal duodenum. 4. Mild diverticulosis. John Neville MD Chest X-Ray 01/03/18 0000 Signed Impressions: Service Date/Time: Wednesday, January 03, 2018 09:20 - CONCLUSION: No significant change. Bilateral parenchymal opacities remain with apparent right effusion. John Neville MD Renal Ultrasound 01/01/18 0000 Signed Impressions: Service Date/Time: December 18:16 - CONCLUSION: 1. No evidence of hydronephrosis. 2. No new or significant changes compared to the prior exam 3. 2.2 cm right renal cyst. Luiz Frey MD Objective Remarks GENERAL: 72-year-old male currently on 6L nasal cannula in no acute distress SKIN: Warm and dry. HEAD: Normocephalic. EYES: No scleral icterus. No injection or drainage. NECK: Supple, trachea midline. No JVD or lymphadenopathy. CARDIOVASCULAR: Tachycardic, irregular. S1, S2 no S4. Distant. RESPIRATORY: Diminished breath sounds right lower lobe. No wheezing is appreciated GASTROINTESTINAL: Abdomen protuberant/obese/distended. Hypoactive bowel sounds are present MUSCULOSKELETAL: Trace to 1+ lower extremity edema. NEURO EXAM: Cranial nerves II through XII grossly intact. Strength is equal & symmetric. Normal sensation Urinary Catheter: No Assessment to: Continue A/P Assessment and Plan Neuro/Psych: Depression/anxiety Chronic narcotic use Continue sertraline 50 mg twice daily/home medication for depression Continue pramipexole 0.5 mg p.o. daily for experimental side effects Currently holding buspirone 5 mg 3 times daily anxiety On oxycodone/acetaminophen 5/325 1 - 2 tablets every 4 hours as needed pain CV: Status post ablation for A. fib/flutter Chronic diastolic heart failure ejection fraction 45-50% 08/22 Hypertension Dyslipidemia Continue amiodarone 200 mg by mouth daily Continue atorvastatin 40 mg p.o. daily for his lipidemia At home on fish oil/cholecalciferol 1200/1000 1 tablet twice daily/home medication Holding diltiazem 240 mg p.o. daily/home medication Holding ramipril 5 mg p.o. daily for hypertension with acute kidney injury We will give 2 doses of digoxin 0.25 mg. Recheck in a.m. level Notify cardiology. Dr. Ramirez evaluated no further plans at this time Currently on normal saline at 40 cc an hour Resp: MUNA -nocturnal CPAP 8 cm H2O Moderate right pleural effusion Extubated 01/02. Currently on nasal cannula at 6 L to maintain saturations greater than equal to 92% Wean O2 as tolerated Follow-up chest x-ray in a.m 01/06 Furosemide drip discontinued today Acapella every 6 hours levalbuterol 1.25 mg NEB q6h GI: Gastroesophageal reflux disease Elevated transaminases Ileus Currently n.p.o. except for meds and ice chips NGT to LIWS Continue pantoprazole 40 mg IV. daily for gastroesophageal disease. On omeprazole 20 mg p.o. daily at home Docusate sodium/senna 1 tablet twice daily for bowel regimen with polyethylene glycol 17 g twice daily and lactulose 30 cc 4 times daily Follow transaminases intermittently is likely congestion. Further workup and On metoclopramide 5 mg IV every 8 hours and erythromycin 250 every 8 hours KUB reveals small bowel/transverse and descending colon air filled loops CT abdomen/pelvis revealed dilated small and large bowel. Recheck KUB in a.m. Consult to GI. Likely EGD/colonoscopy in a.m. Will holding on mag citrate secondary to repeated emesis : BPH/overflow Andrade catheter has been placed for accurate I's and O's in a critically ill patient Continue doxazosin 4 mg daily and bethanechol 25 mg daily Endo: Diabetes mellitus Hypothyroidism Low testosterone Currently on insulin detemir 12 units twice daily with NovoLog sliding scale insulin/low regimen before meals at bedtime At home on insulin glargine 12 units twice daily with sliding scale insulin Continue levothyroxine 125 mcg p.o. daily. TSH 3.06 Holding testosterone Renal: Acute kidney injury likely secondary to cardiorenal syndrome Renal cyst right 2.2 cm Followed by nephrology. Monitor urine output Accurate I's and O's. Renal ultrasound with no hydronephrosis. Right renal cyst 2.2 cm. Rare eosinophils urine. Heme: Chronic apixaban use Normocytic normochromic anemia Currently renally dose of 2.5 mg twice daily. Hold today possible intervention by gastroenterology in a.m. 4/3 Monitor CBC daily. Follow trends ID: Monitor for infection FEN: Hypokalemia 30 mEq KCl IV 1 now. Recheck in a.m. Replace electrolytes as clinically indicated MSK: Osteoporosis/osteoarthritis PT evaluate and treat Access -Utilize peripheral IV. Central line if indicated Prophylaxis -GI -pantoprazole -DVT -SCD/apixaban Level 3 follow-up Marin Goodman MD Jan 05, 2018 22:42
[2018-01-06] VITALS (15 sets, daily range): BP systolic 123–144; BP diastolic 66–80; PULSE 84–101; RESP 12–20; TEMP 97.9–98.3; O2SAT 76–100
[2018-01-06] MEDS: POTASSIUM CHLOR 10 MEQ PREMIX 100 ML IV SCH ×2 (00:45→01:37)
[2018-01-06] MEDS: INSULIN ASPART SUPPLEMENTAL SCALE SQ SCH ×6 (04:00→22:57)
[2018-01-06] MEDS: RESP: LEVALBUTEROL HYDROCHLORIDE 1.25 MG/3 ML NEB (SCH) NEB ×4 (04:00→21:43)
[2018-01-06 05:43] LABS: HEMATOCRIT 33.7 % (39.0-51.0); HEMOGLOBIN 10.6 GM/DL (13.0-17.0); MEAN CELL VOLUME 83.6 FL (80.0-100.0); MEAN CORPUSCULAR HEMOGLOBIN 26.4 PG (27.0-34.0); MEAN CORPUSCULAR HGB CONC 31.5 % (32.0-36.0); MEAN PLATELET VOLUME 8.5 FL (7.0-11.0); PLATELET COUNT 145 TH/MM3 (150-450); RED BLOOD COUNT 4.04 MIL/MM3 (4.50-5.90); RED CELL DISTRIBUTION WIDTH 20.8 % (11.6-17.2); WHITE BLOOD COUNT 4.3 TH/MM3 (4.0-11.0)
--- NOTE | 2018-01-06 05:44 | RADRPT ---
EXAM DATE/TIME: 01/06/2018 04:38 [facility] COMPARISON: ABDOMEN KUB ONLY, January 05, 2018, 4:27. INDICATIONS : Abdominal distension, evaluate ileus. MEDICAL HISTORY : Cardiovascular disease. Cerebrovascular disease. Hypertension. GERD, diabetic. SURGICAL HISTORY : Cholecystectomy. ENCOUNTER: Subsequent ACUITY: 3 days PAIN SCORE: Non-responsive. LOCATION: all quadrants. FINDINGS: Nasogastric tube descends into the stomach. There is prominent persistent gaseous distention of bowel loops throughout the abdomen and pelvis, no significantly changed. CONCLUSION: Persistent prominent gaseous distention of bowel throughout Lito Adkins MD on January 06, 2018 at 5:41 Board Certified Radiologist. This report was verified electronically.
[2018-01-06] MEDS: LEVOTHYROXINE SODIUM 125 MCG TAB PO SCH (06:02)
[2018-01-06] MEDS: ERYTHROMYCIN EC 250 MG TABEC PO SCH ×3 (06:02→23:02)
[2018-01-06] MEDS: METOCLOPRAMIDE HCL 10 MG/2 ML VIAL IV PUSH SCH ×3 (06:03→22:57)
[2018-01-06 06:13] LABS: BICARBONATE 28.2 MEQ/L (21.0-32.0); CALCIUM 8.4 MG/DL (8.5-10.1); CREATININE 2.04 MG/DL (0.60-1.30); MAGNESIUM 1.9 MG/DL (1.5-2.5); PHOSPHORUS 2.4 MG/DL (2.5-4.9)
[2018-01-06] MEDS: SODIUM CHLORIDE 0.9% FLUSH 10 ML FLUSH IV FLUSH SCH ×2 (09:00→22:59)
[2018-01-06] MEDS: DOCUSATE SODIUM 50 MG/SENNA 8.6 MG TAB PO SCH ×2 (09:00→23:02)
[2018-01-06] MEDS: POLYETHYLENE GLYCOL 17 GM PKG PO SCH ×2 (09:00→22:56)
[2018-01-06] MEDS: LACTULOSE SYRUP 20 GM/30 ML CUP PO SCH ×4 (09:00→23:02)
[2018-01-06] MEDS: AMIODARONE 200 MG TAB PO SCH (09:01)
[2018-01-06] MEDS: SERTRALINE HCL 50 MG TAB PO SCH ×2 (09:01→22:56)
[2018-01-06] MEDS: ALLOPURINOL 100 MG TAB PO SCH (09:01)
[2018-01-06] MEDS: PANTOPRAZOLE SODIUM 40 MG VIAL IV PUSH SCH (09:01)
[2018-01-06] MEDS: BETHANECHOL CHL 25 MG TAB PO SCH (09:01)
--- NOTE | 2018-01-06 10:46 | GIPROC ---
[facility] [address] [facility]. [facility], [address] COLONOSCOPY PROCEDURE REPORT EXAM DATE: 01/06/2018 PATIENT NAME: Pedro Otto MR #: [id number] BIRTHDATE: 1945 ENDOSCOPIST: Juan Manuel Bella MD ORDER #: [id number] PARTS CATALOGER: Abraham Bautista and Lisa Infante STATUS: inpatient INDICATIONS: The patient is a 72 yr old male here for a colonoscopy due to abdominal pain and colon distension PROCEDURE PERFORMED: Colonoscopy with decompression MEDICATIONS: None and Per Anesthesia. PREP QUALITY: The [place] Bowel Prep Score was Right colon 2, Mid colon 1, and Left colon 1. Total = 4. ESTIMATED BLOOD LOSS: None CONSENT: The patient understands the risks and benefits of the procedure and understands that these risks include, but are not limited to: sedation, allergic reaction, infection, perforation and/or bleeding. Alternative means of evaluation and treatment include, among others: physical exam, x-rays, and/or surgical intervention. The patient elects to proceed with this endoscopic procedure. medical equipment was checked for proper function. Hand hygiene and appropriate measures for infection prevention was taken. After the risks, benefits and alternatives of the procedure were thoroughly explained, Informed consent was verified, confirmed and timeout was successfully executed by the treatment team. A digital exam revealed external hemorrhoids The Pentax [id number] endoscope was introduced through the anus and advanced to the ascending colon. The instrument was then slowly withdrawn as the colon was fully examined. COLON FINDINGS: Moderate diverticulosis was noted in the sigmoid colon. No bleeding was noted from the diverticulosis. Colon distension, decompessed. Retroflexed views revealed internal hemorrhoids and Retroflexed views revealed medium internal hemorrhoids The scope was then completely withdrawn from the patient and the procedure terminated. PROCEDURE WITHDRAWAL TIME:6minutes ADVERSE EVENTS: There were no complications. IMPRESSIONS: 1. Moderate diverticulosis was noted in the sigmoid colon 2. Colon distension, decompessed 3. Retroflexed views revealed internal hemorrhoids 4. Retroflexed views revealed medium internal hemorrhoids 5. Revealed external hemorrhoids RECOMMENDATIONS: KUB, mag citrate po RECALL: Return 1 year Colonoscopy Juan Manuel Bella MD eSigned: Juan Manuel Bella MD 01/06/2018 10:46 AM cc:
[2018-01-06] MEDS ORDERED: DO NOT ADM ANY ANTICOAGULANT DRUGS PRN (10:57)
[2018-01-06] MEDS: MAGNESIUM CITRATE SOLN 300 ML BTL PO ONE ×2 (12:00→13:40)
[2018-01-06] MEDS ORDERED: LIDOCAINE HCL 1% PF 5 ML SYRINGE OTHER ONE (12:00)
[2018-01-06] MEDS ORDERED: PROPOFOL 200 MG/20 ML AMP IV ONE (12:00)
[2018-01-06] MEDS ORDERED: SUCCINYLCHOLINE CHLORIDE 100 MG/5 ML SYRINGE IV PUSH ONE (12:00)
--- NOTE | 2018-01-06 12:27 | HHI.NPPN ---
Subjective History of Present Illness 72 year old male with Chf/Atrial tachycardia/Afib admitted with Tachyarrhythmia Review of Systems General Constitutional: Fatigue Objective Data Data 01/06/18 01/07/18 19:00 07:00 Intake Total 100 ml Output Total 325 ml Balance -225 ml Other 100 ml Output Urine Total 325 ml Vital Signs Date Time Temp Pulse Resp B/P (MAP) Pulse Ox O2 Delivery O2 Flow Rate FiO2 01/06/18 11:40 98.6 93 18 148/78 (101) 100 Nasal Cannula 2 01/06/18 11:30 92 17 132/71 (91) 99 Nasal Cannula 4 01/06/18 11:15 91 17 130/68 (88) 94 Nasal Cannula 4 01/06/18 11:00 93 20 137/75 (95) 95 Simple Mask 6 01/06/18 10:55 98.5 97 18 135/71 (92) 92 Simple Mask 6 01/06/18 06:00 97 01/06/18 04:00 96 Nasal Cannula 6.00 01/06/18 04:00 98 01/06/18 04:00 97.9 98 20 131/67 (88) 96 01/06/18 02:00 100 01/06/18 00:00 98.1 101 17 123/68 (86) 100 01/06/18 00:00 100 Nasal Cannula 6.00 01/06/18 00:00 101 01/05/18 22:00 105 01/05/18 20:15 98 Nasal Cannula 6.00 01/05/18 20:00 101 01/05/18 20:00 98.8 101 17 126/67 (86) 100 01/05/18 20:00 100 6.00 01/05/18 18:00 80 01/05/18 16:00 100 Nasal Cannula 6.00 Humidified 01/05/18 16:00 95 01/05/18 16:00 99.0 86 20 111/66 (81) 99 01/05/18 14:00 85 -: 01/06/18 0511 01/06/18 0511 Physical Exam General Appearance: Well Developed, Well Nourished, No Acute Distress, Comfortable Neck Neck Exam: Neck Supple Pulmonary Resp Exam: No Distress, Crackles, Rhonchi, Decreased Bases, Diminished Breath Sounds Cardiology CV Exam: Tachycardia Gastrointestinal/Abdomen GI Exam: Soft, Non-Tender, Bowel Sounds Present Extremeties Extremities Exam: Moderate Edema, Pitting Edema Neurologic Neuro Exam: Alert, Awake Assessment/Plan Problem List: (1) Acute renal failure ICD Codes: N17.9 - Acute kidney failure, unspecified Status: Acute Plan: Patient has cardiogenic shock and low blood pressure contributing, and cardiorenal syndrome Plan is to cardiovert him once he is stable on Eliquis He has underlying tachyarrhythmia Atrial fibrillation/atrial tachycardia s/p cardiac Ablation Urine output is adequate, off Lasix drip, Cr 2.04 has ileus stable (2) Chronic kidney disease, stage III (moderate) ICD Codes: N18.3 - Chronic kidney disease, stage III (moderate) Status: Acute Plan: Baseline care around 1.7 (3) Congestive heart failure ICD Codes: I50.9 - Heart failure, unspecified Status: Acute Plan: He is in cardiogenic shock low blood pressure causing the cardiorenal syndrome (4) PAF (paroxysmal atrial fibrillation) ICD Codes: I48.0 - Paroxysmal atrial fibrillation Plan: Cardiology was following (5) Diabetes ICD Codes: E11.9 - Diabetes Status: Chronic Plan: Monitor blood glucose (6) Acute on chronic systolic CHF (congestive heart failure) ICD Codes: I50.23 - Acute on chronic systolic (congestive) heart failure Problem Qualifiers (1) Congestive heart failure: Qualified Codes: I50.9 - Heart failure, unspecified Susan Solo MD Jan 06, 2018 12:27
[2018-01-06] MEDS: SODIUM CHLOR 0.45% 1000 ML INJ 1,000 ML IV SCH (13:42)
[2018-01-06] MEDS: ONDANSETRON HCL 4 MG/2 ML VIAL IV PUSH PRN ×2 (13:43→22:58)
--- NOTE | 2018-01-06 20:30 | HHI.CCPN ---
Subjective Remarks/Hospital Course 72-year-old gentleman with multiple medical problems including morbid obesity, obstructive sleep apnea, diabetes mellitus, and chronic kidney insufficiency, underwent cardiac ablation for uncontrolled A. fib. Patient was intubated for procedure, and is transferred to ICU postprocedure for weaning of the mechanical ventilation due to increased abdominal girth. 01/01: Afebrile. Patient extremely agitated with weaning sedation. Currently on PSV trial.. Chest x-ray revealed moderate size right pleural effusion. Currently in sinus rhythm 01/02: Started on BiPAP overnight 09/09 at 50% Furosemide gtt not initiated until this AM. Will attempt to diurese. Will possibly need thoracentesis in a.m. when off apixaban 24 hours. Possible ileus on CAT scan. Started on metoclopramide 01/03: Resting comfortably in bed in no acute distress. Abdomen appears more distended today. Currently on high flow nasal cannula 35 L 70% which is off the side not in his nares satting 89%. 01/04: -1650 from NG tube overnight. Low blood sugar this a.m. noted. Will hold insulin detemir give D5 one half normal saline along with extra potassium chloride today. CT abdomen/pelvis pending. Positive BM overnight. Abdomen remains distended.. BUN and creatinine are slowly decreasing. 01/05: Another emesis today. Will likely need EGD/colonoscopy in a.m. Holding apixaban. Did not tolerate mag citrate. Abdomen remains distended without BM. SUBJECTIVE: 01/06: Status post colonoscopy today with decompression. Abdomen is less distended. Remains on nasal cannula. Looks and appears more comfortable. Objective Vital Signs Date Time Temp Pulse Resp B/P (MAP) Pulse Ox O2 Delivery O2 Flow Rate FiO2 01/06/18 18:00 96 01/06/18 16:57 99 01/06/18 16:00 Room Air 01/06/18 16:00 98.0 16 135/66 (89) 01/06/18 11:40 2 01/04/18 10:01 100 Intake and Output 01/06/18 01/06/18 01/07/18 08:00 16:00 00:00 Intake Total 640 ml 100 ml 780 ml Output Total 1825 ml 325 ml 875 ml Balance -1185 ml -225 ml -95 ml Result Diagram: 01/06/18 0511 01/06/18 0511 Imaging Last Impressions Abdomen X-Ray 01/06/18 0600 Signed Impressions: Service Date/Time: Saturday, January 06, 2018 04:38 - CONCLUSION: Persistent prominent gaseous distention of bowel throughout Lito Adkins MD Abdomen/Pelvis CT 01/04/18 0000 Signed Impressions: Service Date/Time: Thursday, January 04, 2018 10:34 - CONCLUSION: 1. Abnormal bowel gas pattern most characteristic of an ileus. There is a small amount of ascitic fluid in right paracolic gutter and pelvis. 2. Bilateral pleural effusions right greater than left with consolidation in both posterior lung bases. 3. Nasogastric tube in place with the tip in the proximal duodenum. 4. Mild diverticulosis. John Neville MD Chest X-Ray 01/03/18 0000 Signed Impressions: Service Date/Time: Wednesday, January 03, 2018 09:20 - CONCLUSION: No significant change. Bilateral parenchymal opacities remain with apparent right effusion. John Neville MD Renal Ultrasound 01/01/18 0000 Signed Impressions: Service Date/Time: December 18:16 - CONCLUSION: 1. No evidence of hydronephrosis. 2. No new or significant changes compared to the prior exam 3. 2.2 cm right renal cyst. Luiz Frey MD Objective Remarks GENERAL: 72-year-old male currently on 6L nasal cannula in no acute distress SKIN: Warm and dry. HEAD: Normocephalic. EYES: No scleral icterus. No injection or drainage. NECK: Supple, trachea midline. No JVD or lymphadenopathy. CARDIOVASCULAR: Tachycardic, irregular. S1, S2 no S4. Distant. RESPIRATORY: Diminished breath sounds right lower lobe. No wheezing is appreciated GASTROINTESTINAL: Abdomen protuberant/obese/distended. Hypoactive bowel sounds are present MUSCULOSKELETAL: Trace to 1+ lower extremity edema. NEURO EXAM: Cranial nerves II through XII grossly intact. Strength is equal & symmetric. Normal sensation Urinary Catheter: Yes Assessment to: Continue Andrade insert reason: Prolonged Immobilization Vascular Central Line Catheter: No Assessment to: Continue A/P Assessment and Plan Neuro/Psych: Depression/anxiety Chronic narcotic use Continue sertraline 50 mg twice daily/home medication for depression Continue pramipexole 0.5 mg p.o. daily for extrapyramidal side effects Currently holding buspirone 5 mg 3 times daily anxiety On oxycodone/acetaminophen 5/325 1 - 2 tablets every 4 hours as needed pain CV: Status post ablation for A. fib/flutter Chronic diastolic heart failure ejection fraction 45-50% 08/22 Hypertension Dyslipidemia Continue amiodarone 200 mg by mouth daily Continue atorvastatin 40 mg p.o. daily for his lipidemia At home on fish oil/cholecalciferol 1200/1000 1 tablet twice daily/home medication Holding diltiazem 240 mg p.o. daily/home medication Holding ramipril 5 mg p.o. daily for hypertension with acute kidney injury We will give 2 doses of digoxin 0.25 mg. Recheck in a.m. level Notify cardiology. Dr. Ramirez evaluated no further plans at this time Discontinue IV fluids Resp: MUNA -nocturnal CPAP 8 cm H2O Moderate right pleural effusion Extubated 01/02. Currently on nasal cannula at 6 L to maintain saturations greater than equal to 92% Wean O2 as tolerated Follow-up chest x-ray in a.m 01/07 Furosemide drip discontinued today Acapella every 6 hours levalbuterol 1.25 mg NEB q6h GI: Gastroesophageal reflux disease Elevated transaminases Ileus Sigmoid diverticulosis Internal/external hemorrhoids Heart healthy diet NGT to LIWS as needed. Likely can discontinue/4 if no emesis overnight Continue pantoprazole 40 mg IV. daily for gastroesophageal disease. On omeprazole 20 mg p.o. daily at home Docusate sodium/senna 1 tablet twice daily for bowel regimen with polyethylene glycol 17 g twice daily and lactulose 30 cc 4 times daily Follow transaminases intermittently is likely congestion. Further workup and On metoclopramide 5 mg IV every 8 hours and erythromycin 250 every 8 hours KUB reveals small bowel/transverse and descending colon air filled loops CT abdomen/pelvis revealed dilated small and large bowel. Recheck KUB in a.m. Consult to GI Colonoscopy by Dr. Bella/revealed sigmoid diverticulosis. Decompression of colon. Internal and external hemorrhoids. : BPH/overflow Andrade catheter has been placed for accurate I's and O's in a critically ill patient Continue doxazosin 4 mg daily and bethanechol 25 mg daily Endo: Diabetes mellitus Hypothyroidism Low testosterone Currently on insulin detemir 4 units twice daily with NovoLog sliding scale insulin/low regimen before meals at bedtime At home on insulin glargine 12 units twice daily with sliding scale insulin Continue levothyroxine 125 mcg p.o. daily. TSH 3.06 Holding testosterone Renal: Acute kidney injury likely secondary to cardiorenal syndrome Renal cyst right 2.2 cm Followed by nephrology. Monitor urine output Accurate I's and O's. Renal ultrasound with no hydronephrosis. Right renal cyst 2.2 cm. Rare eosinophils urine. Heme: Chronic apixaban use Normocytic normochromic anemia Currently renally dose of 2.5 mg twice daily. Resume 4/4 a.m. Monitor CBC daily. Follow trends ID: Monitor for infection FEN: Hypokalemia Hypophosphatemia 1 g Neutra-Phos p.o. now. Recheck in a.m. Replace electrolytes as clinically indicated MSK: Osteoporosis/osteoarthritis PT evaluate and treat Access -Utilize peripheral IV. Central line if indicated Prophylaxis -GI -pantoprazole -DVT -SCD/apixaban Level 3 follow-up Marin Goodman MD Jan 06, 2018 20:30
[2018-01-06] MEDS ORDERED: POTASSIUM PHOSPHATE/SODIUM PHOSPHATE 250 MG TAB PO ONE (21:00)
[2018-01-06] MEDS: DOXAZOSIN MESYLATE 4 MG TAB PO SCH (22:56)
[2018-01-06] MEDS: INSULIN DETEMIR 100 UNITS/ML VIAL SQ SCH (22:57)
[2018-01-06] MEDS: ATORVASTATIN 40 MG TAB PO SCH (22:58)
[2018-01-06] MEDS: PRAMIPEXOLE DIHYDROCHLORIDE 0.25 MG TAB PO SCH (22:59)
[2018-01-06] MEDS ORDERED: MIDAZOLAM HCL 5 MG/ML VIAL (1 ML) ONE ×2 (23:21→23:22)
[2018-01-06] MEDS ORDERED: SUCCINYLCHOLINE CHLORIDE 200 MG/10 ML VIAL ONE (23:23)
[2018-01-06] MEDS ORDERED: PROPOFOL 500 MG/50 ML INJ 50 ML ONE (23:26)
[2018-01-07] VITALS (19 sets, daily range): BP systolic 99–118; BP diastolic 58–70; PULSE 92–106; RESP 20–22; TEMP 98.6–100.3; O2SAT 91–100
--- NOTE | 2018-01-07 00:10 | RADRPT ---
EXAM DATE/TIME: 01/06/2018 23:51 [facility] COMPARISON: CHEST SINGLE AP, January 03, 2018, 9:20. INDICATIONS : Central line placement. MEDICAL HISTORY : Myocardial infarction. Congestive heart failure. Hypercholesterolemia. SURGICAL HISTORY : Cardiac ablation. Cardiac cath ENCOUNTER: Subsequent ACUITY: 1 week PAIN SCORE: Non-responsive. LOCATION: Bilateral chest FINDINGS: Endotracheal tube nasogastric tube and right subclavian central line are present in good position. Th ere is no evidence of pneumothorax or other complication. Hazy pleuroparenchymal opacity over the rig ht chest suggests layering effusion and parenchymal disease. Consolidative change at the left base ob scured left diaphragm. Cardiac contour is grossly unchanged. CONCLUSION: Satisfactory support line and tube positioning. Lito Adkins MD on January 07, 2018 at 0:06 Board Certified Radiologist. This report was verified electronically.
[2018-01-07] MEDS: PROPOFOL 1000 MG/100 ML INJ 100 ML IV PRN ×7 (00:55→23:28)
--- NOTE | 2018-01-07 03:08 | PD.PROCEDR ---
Procedure Note Procedure Endotracheal Intubation A time-out was completed verifying correct patient, procedure, site, positioning , and special equipment if applicable. The patient was placed in a flat position. Sedation was obtained using Etomidate 20mg. The patient was easily ventilated using an ambu bag. The [employer]/ MAC 4 BLADE was used and inserted into the oropharynx at which time there was a Grade 1 view of the vocal cords. A 8-yoruba endotracheal tube was inserted and visualized going through the vocal cords. The stylette was removed. Colorimetric change was visualized on the CO2 meter. Breath sounds were heard in both lung hernández equally. The endotracheal tube was placed at 23 cm, measured at the teeth. A chest x-ray was ordered to assess for pneumothorax and verify endotrachealtube placement. Estimated Blood Loss: 0 The patient tolerated the procedure well and there were no complications. Timo Hamm MD Jan 07, 2018 3:08 am
--- NOTE | 2018-01-07 03:09 | PD.PROCEDR ---
Procedure Note Procedure Central line placement A time-out was completed verifying correct patient, procedure, site, positioning , and special equipment if applicable. The patient was placed in a dependent position appropriate for central line placement based on the vein to be cannulated. The patients right shoulder was prepped and draped in sterile fashion. 1% Lidocaine was used to anesthetize the surrounding skin area. A triple lumen 9-Setswana Cordis catheter was introduced into the the right subclavian vein using the Seldinger technique. The catheter was threaded smoothly over the guide wire and appropriate blood return was obtained. Each lumen of the catheter was evacuated of air and flushed with sterile saline. The catheter was then sutured in place to the skin and a sterile dressing applied. Perfusion to the extremity distal to the point of catheter insertion was checked and found to be adequate. Estimated Blood Loss: 1ml The patient tolerated the procedure well and there were no complications. Timo Hamm MD Jan 07, 2018 3:09 am
[2018-01-07] MEDS: RESP: LEVALBUTEROL HYDROCHLORIDE 1.25 MG/3 ML NEB (SCH) NEB ×4 (04:01→20:34)
[2018-01-07] MEDS: LEVOTHYROXINE SODIUM 125 MCG TAB PO SCH (04:48)
[2018-01-07] MEDS: ERYTHROMYCIN EC 250 MG TABEC PO SCH ×3 (04:48→20:34)
[2018-01-07] MEDS ORDERED: NALOXONE HCL 4 MG/10 ML MDV IV ONE (05:00)
[2018-01-07] MEDS ORDERED: EPINEPHrine HCL (1:10,000) 1 MG/10 ML SYRINGE IV ONE (05:00)
[2018-01-07] MEDS: SODIUM CHLORIDE 0.9% FLUSH 10 ML FLUSH IV FLUSH PRN (05:32)
[2018-01-07] MEDS: METOCLOPRAMIDE HCL 10 MG/2 ML VIAL IV PUSH SCH ×3 (05:32→20:29)
--- NOTE | 2018-01-07 06:01 | RADRPT ---
EXAM DATE/TIME: 01/07/2018 04:26 [facility] COMPARISON: CHEST SINGLE AP, January 06, 2018, 23:51. INDICATIONS : Shortness of breath. MEDICAL HISTORY : Cardiovascular disease. Cerebrovascular disease. Hypertension. GERD, Diabetes SURGICAL HISTORY : Cholecystectomy. ENCOUNTER: Subsequent ACUITY: 1 week PAIN SCORE: Non-responsive. LOCATION: Bilateral chest FINDINGS: Endotracheal tube, nasogastric tube and right subclavian central line are stable in position. Hazy bi lateral pleural-parenchymal opacities persist unchanged. Cardiac contours are stable. CONCLUSION: No significant change Lito Adkins MD on January 07, 2018 at 5:58 Board Certified Radiologist. This report was verified electronically.
--- NOTE | 2018-01-07 06:14 | RADRPT ---
EXAM DATE/TIME: 01/07/2018 04:29 [facility] COMPARISON: ABDOMEN KUB ONLY, January 06, 2018, 4:38. INDICATIONS : Abdominal distention. MEDICAL HISTORY : Cardiovascular disease. Cerebrovascular disease. Hypertension. GERD, Diabetes SURGICAL HISTORY : Cholecystectomy. ENCOUNTER: Subsequent ACUITY: 4 - 6 days PAIN SCORE: Non-responsive. LOCATION: Bilateral abdomen FINDINGS: Nasogastric tube is present. Persistent diffuse gaseous distention of bowel loops throughout the abdo men or pelvis. Possible slight interval improvement. CONCLUSION: Possible slight interval improvement in gaseous distention of bowel Lito Adkins MD on January 07, 2018 at 6:12 Board Certified Radiologist. This report was verified electronically.
[2018-01-07] MEDS: INSULIN ASPART SUPPLEMENTAL SCALE SQ SCH ×4 (08:00→20:27)
[2018-01-07] MEDS: CHLORHEXIDINE 0.12% (ORAL KIT) 15 ML CUP MT SCH ×2 (08:00→20:29)
[2018-01-07] MEDS: PANTOPRAZOLE SODIUM 40 MG VIAL IV PUSH SCH (08:03)
[2018-01-07] MEDS: AMIODARONE 200 MG TAB PO SCH (08:04)
[2018-01-07] MEDS ORDERED: AMIODARONE INJ 150 MG in DEXTROSE 5% IN WATER 100ML INJ 97 ML IV ONE ×2 (08:49)
--- NOTE | 2018-01-07 08:56 | HHI.CCPN ---
Subjective Remarks/Hospital Course 72-year-old gentleman with multiple medical problems including morbid obesity, obstructive sleep apnea, diabetes mellitus, and chronic kidney insufficiency, underwent cardiac ablation for uncontrolled A. fib. Patient was intubated for procedure, and is transferred to ICU postprocedure for weaning of the mechanical ventilation due to increased abdominal girth. 01/01: Afebrile. Patient extremely agitated with weaning sedation. Currently on PSV trial.. Chest x-ray revealed moderate size right pleural effusion. Currently in sinus rhythm 01/02: Started on BiPAP overnight 09/09 at 50% Furosemide gtt not initiated until this AM. Will attempt to diurese. Will possibly need thoracentesis in a.m. when off apixaban 24 hours. Possible ileus on CAT scan. Started on metoclopramide 01/03: Resting comfortably in bed in no acute distress. Abdomen appears more distended today. Currently on high flow nasal cannula 35 L 70% which is off the side not in his nares satting 89%. 01/04: -1650 from NG tube overnight. Low blood sugar this a.m. noted. Will hold insulin detemir give D5 one half normal saline along with extra potassium chloride today. CT abdomen/pelvis pending. Positive BM overnight. Abdomen remains distended.. BUN and creatinine are slowly decreasing. 01/05: Another emesis today. Will likely need EGD/colonoscopy in a.m. Holding apixaban. Did not tolerate mag citrate. Abdomen remains distended without BM. SUBJECTIVE: 01/06: Status post colonoscopy today with decompression. Abdomen is less distended. Remains on nasal cannula. Looks and appears more comfortable. 01/07: PEA arrest overnight. now intubated and back in afib RVR. cardiac arrest may have been secondary to aspiration, given feculent material suctioned out of airway post-intubation. Objective Vital Signs Date Time Temp Pulse Resp B/P (MAP) Pulse Ox O2 Delivery O2 Flow Rate FiO2 01/07/18 07:47 93 50 01/07/18 06:00 98 01/07/18 04:00 100.3 20 110/69 (83) 01/07/18 04:00 Mechanical Ventilator 01/06/18 23:20 15.00 Intake and Output 01/07/18 01/07/18 01/08/18 08:00 16:00 00:00 Intake Total 500 ml Output Total 1750 ml Balance -1250 ml Result Diagram: 01/06/18 0511 01/06/18 0511 Other Results Laboratory Tests Test 01/07/18 02:15 Blood Gas Puncture Site LT RADIAL Blood Gas Patient Temperature 98.6 Blood Gas HCO3 27 mmol/L (22-26) Blood Gas Base Excess 3.1 mmol/L (-2-2) Blood Gas Oxygen Saturation 97 % (90-100) Arterial Blood pH 7.42 (7.380-7.420) Arterial Blood Partial Pressure CO2 43 mmHg (38-42) Arterial Blood Partial Pressure O2 141 mmHg (61-120) Arterial Blood Oxygen Content 14.6 Vol % (12.0-20.0) Arterial Blood Carboxyhemoglobin 1.5 % (0-4) Arterial Blood Methemoglobin 1.0 % (0-2) Blood Gas Hemoglobin 10.6 G/DL (12.0-16.0) Oxygen Delivery Device VENTILATOR Blood Gas Ventilator Setting SEE COMMENT Blood Gas Inspired Oxygen 100 % Imaging Last Impressions Abdomen X-Ray 01/06/18 0600 Signed Impressions: Service Date/Time: Saturday, January 06, 2018 04:38 - CONCLUSION: Persistent prominent gaseous distention of bowel throughout Lito Adkins MD Abdomen/Pelvis CT 01/04/18 0000 Signed Impressions: Service Date/Time: Thursday, January 04, 2018 10:34 - CONCLUSION: 1. Abnormal bowel gas pattern most characteristic of an ileus. There is a small amount of ascitic fluid in right paracolic gutter and pelvis. 2. Bilateral pleural effusions right greater than left with consolidation in both posterior lung bases. 3. Nasogastric tube in place with the tip in the proximal duodenum. 4. Mild diverticulosis. John Neville MD Chest X-Ray 01/03/18 0000 Signed Impressions: Service Date/Time: Wednesday, January 03, 2018 09:20 - CONCLUSION: No significant change. Bilateral parenchymal opacities remain with apparent right effusion. John Neville MD Renal Ultrasound 01/01/18 0000 Signed Impressions: Service Date/Time: December 18:16 - CONCLUSION: 1. No evidence of hydronephrosis. 2. No new or significant changes compared to the prior exam 3. 2.2 cm right renal cyst. Luiz Frey MD Objective Remarks GENERAL: 72-year-old male, intubated, sedated, critically ill. SKIN: Warm and dry. HEAD: Normocephalic. EYES: No scleral icterus. No injection or drainage. NECK: Supple, trachea midline. CARDIOVASCULAR: Tachycardic, irregular. HR in the 130s, afib. RESPIRATORY: equal chest rise. 50% fio2. peep 5. rr 15, tv 500 prvc mode. GASTROINTESTINAL: Abdomen protuberant/obese/distended. MUSCULOSKELETAL: Trace to 1+ lower extremity edema. NEURO EXAM: RASS -3. sedated, intubated. A/P Assessment and Plan Assessment: 72yM s/p afib ablation now with recurrent acute hypoxic respiratory failure and s/p PEA arrest which may have been secondary to aspiration event. critically ill today, worsening. will bolus amiodarone in attempt to regain control of afib rate. no sbt today given recent hemodynamic instability. critically ill and declining. Neuro/Psych: Depression/anxiety Chronic narcotic use Continue sertraline 50 mg twice daily/home medication for depression Continue pramipexole 0.5 mg p.o. daily for extrapyramidal side effects Currently holding buspirone 5 mg 3 times daily anxiety On oxycodone/acetaminophen 5/325 1 - 2 tablets every 4 hours as needed pain fentanyl, prop for goal RASS -2. sedation vacation. CV: Status post ablation for A. fib/flutter Chronic diastolic heart failure ejection fraction 45-50% 08/22 Hypertension Dyslipidemia recurrent atrial fibrillation with rapid ventricular response s/p PEA arrest 01/07 Continue amiodarone 200 mg by mouth daily Continue atorvastatin 40 mg p.o. daily for his lipidemia At home on fish oil/cholecalciferol 1200/1000 1 tablet twice daily/home medication Holding diltiazem 240 mg p.o. daily/home medication Holding ramipril 5 mg p.o. daily for hypertension with acute kidney injury dig level / is low. add additional 0.25mg dig iv x 1. Notify cardiology. Dr. Ramirez evaluated no further plans at this time Discontinue IV fluids aggressive replacement of electrolytes, targeting K > 4.5, Mg > 2.5 rebolus amiodarone 150mg over 1 hour. Resp: MUNA -nocturnal CPAP 8 cm H2O Moderate right pleural effusion Acute hypoxic and hypercarbic respiratory failure Extubated 01/02. reintubated 01/07 during PEA arrest wean fio2 for goal spo2 > 90% vent bundle hob elevated nebs restart forced diuresis. Acapella every 6 hours levalbuterol 1.25 mg NEB q6h GI: Gastroesophageal reflux disease Elevated transaminases Ileus Sigmoid diverticulosis Internal/external hemorrhoids NGT to LIWS as needed. Continue pantoprazole 40 mg IV. daily for gastroesophageal disease. On omeprazole 20 mg p.o. daily at home Docusate sodium/senna 1 tablet twice daily for bowel regimen with polyethylene glycol 17 g twice daily and lactulose 30 cc 4 times daily Follow transaminases intermittently is likely congestion. Further workup and On metoclopramide 5 mg IV every 8 hours and erythromycin 250 every 8 hours KUB reveals small bowel/transverse and descending colon air filled loops CT abdomen/pelvis revealed dilated small and large bowel. Consult to GI Colonoscopy by Dr. Bella/revealed sigmoid diverticulosis. Decompression of colon. Internal and external hemorrhoids. : BPH/overflow Fowler catheter has been placed for accurate I's and O's in a critically ill patient: continue given critical illness today and forced diuresis. Continue doxazosin 4 mg daily and bethanechol 25 mg daily Endo: Diabetes mellitus Hypothyroidism Low testosterone Currently on insulin detemir 4 units twice daily with NovoLog sliding scale insulin/low regimen before meals at bedtime At home on insulin glargine 12 units twice daily with sliding scale insulin Continue levothyroxine 125 mcg p.o. daily. TSH 3.06 Holding testosterone Renal: Acute kidney injury likely secondary to cardiorenal syndrome - resolving. Renal cyst right 2.2 cm Followed by nephrology. Monitor urine output Accurate I's and O's. Renal ultrasound with no hydronephrosis. Right renal cyst 2.2 cm. Rare eosinophils urine. Heme: Chronic apixaban use Normocytic normochromic anemia Currently renally dose of 2.5 mg twice daily. Resume 01/07 a.m. Monitor CBC daily. Follow trends ID: Monitor for infection FEN: Hypokalemia Hypophosphatemia 1 g Neutra-Phos p.o. now. Recheck in a.m. Replace electrolytes as clinically indicated MSK: Osteoporosis/osteoarthritis PT evaluate and treat Access -central line placed 4/4 post cardiac arrest. - fowler. Prophylaxis -GI -pantoprazole -DVT -SCD/apixaban Critical care time: 48 minutes, exclusive of separately billable procedures Eduardo Diaz MD Jan 07, 2018 08:56
[2018-01-07] MEDS: INSULIN DETEMIR 100 UNITS/ML VIAL SQ SCH ×2 (09:00→20:27)
[2018-01-07] MEDS: POLYETHYLENE GLYCOL 17 GM PKG PO SCH ×2 (09:00→20:28)
[2018-01-07] MEDS ORDERED: FUROSEMIDE 40 MG/4 ML VIAL IV PUSH SCH (09:00)
[2018-01-07] MEDS ORDERED: POTASSIUM CHLORIDE 25 MEQ EFFERVESCENT TAB PO ONE (09:00)
[2018-01-07] MEDS: FREE WATER G-TUBE SCH ×5 (09:00→23:32)
[2018-01-07] MEDS: SODIUM CHLORIDE 0.9% FLUSH 10 ML FLUSH IV FLUSH SCH ×2 (09:00→20:29)
[2018-01-07 09:40] LABS: HEMATOCRIT 33.6 % (39.0-51.0); HEMOGLOBIN 10.5 GM/DL (13.0-17.0); MEAN CELL VOLUME 82.5 FL (80.0-100.0); MEAN CORPUSCULAR HEMOGLOBIN 25.9 PG (27.0-34.0); MEAN CORPUSCULAR HGB CONC 31.4 % (32.0-36.0); MEAN PLATELET VOLUME 8.5 FL (7.0-11.0); PLATELET COUNT 152 TH/MM3 (150-450); RED BLOOD COUNT 4.07 MIL/MM3 (4.50-5.90); RED CELL DISTRIBUTION WIDTH 20.6 % (11.6-17.2); WHITE BLOOD COUNT 5.3 TH/MM3 (4.0-11.0)
[2018-01-07 10:05] LABS: BICARBONATE 27.9 MEQ/L (21.0-32.0); CALCIUM 8.1 MG/DL (8.5-10.1); CREATININE 2.35 MG/DL (0.60-1.30); MAGNESIUM 1.9 MG/DL (1.5-2.5)
[2018-01-07] MEDS: LACTULOSE SYRUP 20 GM/30 ML CUP PO SCH ×4 (10:18→20:28)
[2018-01-07] MEDS: SERTRALINE HCL 50 MG TAB PO SCH ×2 (10:19→20:27)
[2018-01-07] MEDS: APIXABAN 2.5 MG TABLET PO SCH ×2 (10:19→20:34)
[2018-01-07] MEDS: BETHANECHOL CHL 25 MG TAB PO SCH (10:19)
[2018-01-07] MEDS: DOCUSATE SODIUM 50 MG/SENNA 8.6 MG TAB PO SCH ×2 (10:19→20:27)
[2018-01-07] MEDS: ALLOPURINOL 100 MG TAB PO SCH (10:19)
[2018-01-07] MEDS: MAGNESIUM SULFATE 1 GM PREMIX 100 ML IV SCH ×2 (10:20→11:00)
[2018-01-07] MEDS ORDERED: DIGOXIN 0.5 MG/2 ML VIAL IV PUSH ONE (12:45)
[2018-01-07] MEDS ORDERED: POTASSIUM CHLOR 40 MEQ PREMIX 100 ML IV ONE (13:00)
--- NOTE | 2018-01-07 14:46 | HHI.NPPN ---
Subjective History of Present Illness 72 year old male with Chf/Atrial tachycardia/Afib admitted with Tachyarrhythmia Interval History code blue 10 min CPR, now intubated on 01/06 night Review of Systems General Constitutional: Fatigue Objective Data Data Vital Signs Date Time Temp Pulse Resp B/P (MAP) Pulse Ox O2 Delivery O2 Flow Rate FiO2 01/07/18 14:26 100 50 01/07/18 14:00 96 01/07/18 12:02 93 50 01/07/18 12:00 99.4 94 21 99/58 (72) 97 01/07/18 12:00 50 01/07/18 12:00 97 Mechanical Ventilator 50 01/07/18 12:00 94 01/07/18 10:00 94 01/07/18 08:49 105 117/57 01/07/18 08:00 98 01/07/18 08:00 100.0 98 21 113/60 (77) 91 01/07/18 08:00 91 Mechanical Ventilator 50 01/07/18 07:47 93 50 01/07/18 06:00 98 01/07/18 04:02 100 50 01/07/18 04:00 106 01/07/18 04:00 100.3 106 20 110/69 (83) 100 01/07/18 04:00 100 Mechanical Ventilator 50 01/07/18 02:03 100 100 01/07/18 02:00 101 01/07/18 00:00 97 01/07/18 00:00 99.1 97 22 118/70 (86) 96 01/07/18 00:00 96 Mechanical Ventilator 100 01/06/18 23:28 93 100 01/06/18 23:20 76 15.00 100 01/06/18 22:00 98 01/06/18 20:00 96 Room Air 01/06/18 20:00 84 01/06/18 20:00 98.3 90 19 144/76 (98) 97 01/06/18 18:00 96 01/06/18 16:57 99 01/06/18 16:00 100 Room Air 01/06/18 16:00 95 01/06/18 16:00 98.0 97 16 135/66 (89) 98 -: 01/07/18 0905 01/07/18 0905 Physical Exam General Appearance: Well Developed, Well Nourished, No Acute Distress, Comfortable Neck Neck Exam: Neck Supple Pulmonary Resp Exam: No Distress, Crackles, Rhonchi, Decreased Bases, Diminished Breath Sounds Cardiology CV Exam: Tachycardia Gastrointestinal/Abdomen GI Exam: Soft, Non-Tender, Bowel Sounds Present Extremeties Extremities Exam: Moderate Edema, Pitting Edema Neurologic Neuro Exam: Alert, Awake Assessment/Plan Problem List: (1) Acute renal failure ICD Codes: N17.9 - Acute kidney failure, unspecified Status: Acute Plan: Patient has cardiogenic shock and low blood pressure contributing, and cardiorenal syndrome Plan is to cardiovert him once he is stable on Eliquis He has underlying tachyarrhythmia Atrial fibrillation/atrial tachycardia s/p cardiac Ablation UOP dropped post code and intubated Cr 2.3 Ileus on NGT suction K replaced follow BMP try Lasix drip as Lasix 40 mg was not helpful (2) Chronic kidney disease, stage III (moderate) ICD Codes: N18.3 - Chronic kidney disease, stage III (moderate) Status: Acute Plan: Baseline care around 1.7 (3) Congestive heart failure ICD Codes: I50.9 - Heart failure, unspecified Status: Acute Plan: He is in cardiogenic shock low blood pressure causing the cardiorenal syndrome (4) PAF (paroxysmal atrial fibrillation) ICD Codes: I48.0 - Paroxysmal atrial fibrillation Plan: Cardiology was following (5) Diabetes ICD Codes: E11.9 - Diabetes Status: Chronic Plan: Monitor blood glucose (6) Acute on chronic systolic CHF (congestive heart failure) ICD Codes: I50.23 - Acute on chronic systolic (congestive) heart failure Problem Qualifiers (1) Congestive heart failure: Qualified Codes: I50.9 - Heart failure, unspecified Susan Solo MD Jan 07, 2018 14:46
--- NOTE | 2018-01-07 15:39 | HHI.GIFU ---
Subjective Remarks s/p PEA arrest over night, per CCM possibly 2/2 feculent material aspirated. Now intubated. (Jyotsna GarsiaP) Objective Vitals I&O Vital Signs Date Time Temp Pulse Resp B/P (MAP) Pulse Ox O2 Delivery O2 Flow Rate FiO2 01/07/18 14:26 100 50 01/07/18 14:00 96 01/07/18 12:02 93 50 01/07/18 12:00 99.4 94 21 99/58 (72) 97 01/07/18 12:00 50 01/07/18 12:00 97 Mechanical Ventilator 50 01/07/18 12:00 94 01/07/18 10:00 94 01/07/18 08:49 105 117/57 01/07/18 08:00 98 01/07/18 08:00 100.0 98 21 113/60 (77) 91 01/07/18 08:00 91 Mechanical Ventilator 50 01/07/18 07:47 93 50 01/07/18 06:00 98 01/07/18 04:02 100 50 01/07/18 04:00 106 01/07/18 04:00 100.3 106 20 110/69 (83) 100 01/07/18 04:00 100 Mechanical Ventilator 50 01/07/18 02:03 100 100 01/07/18 02:00 101 01/07/18 00:00 97 01/07/18 00:00 99.1 97 22 118/70 (86) 96 01/07/18 00:00 96 Mechanical Ventilator 100 01/06/18 23:28 93 100 01/06/18 23:20 76 15.00 100 01/06/18 22:00 98 01/06/18 20:00 96 Room Air 01/06/18 20:00 84 01/06/18 20:00 98.3 90 19 144/76 (98) 97 01/06/18 18:00 96 01/06/18 16:57 99 01/06/18 16:00 100 Room Air 01/06/18 16:00 95 01/06/18 16:00 98.0 97 16 135/66 (89) 98 I/O 01/06/18 01/06/18 01/06/18 01/07/18 01/07/18 01/07/18 07:00 15:00 23:00 07:00 15:00 23:00 Intake Total 640 ml 100 ml 780 ml 500 ml Output Total 1825 ml 325 ml 875 ml 1750 ml Balance -1185 ml -225 ml -95 ml -1250 ml Intake Oral 240 ml 720 ml 500 ml IV Total 400 ml Other 100 ml 60 ml Output Urine Total 525 ml 325 ml 575 ml 150 ml Gastric Drainage Total 1300 ml 300 ml 1600 ml # Bowel Movements 2 1 2 Laboratory Laboratory Tests Test 01/07/18 02:15 01/07/18 09:05 Blood Gas Puncture Site LT RADIAL Blood Gas Patient Temperature 98.6 Blood Gas HCO3 27 Blood Gas Base Excess 3.1 Blood Gas Oxygen Saturation 97 Arterial Blood pH 7.42 Arterial Blood Partial Pressure CO2 43 Arterial Blood Partial Pressure O2 141 Arterial Blood Oxygen Content 14.6 Arterial Blood Carboxyhemoglobin 1.5 Arterial Blood Methemoglobin 1.0 Blood Gas Hemoglobin 10.6 Oxygen Delivery Device VENTILATOR Blood Gas Ventilator Setting SEE COMMENT Blood Gas Inspired Oxygen 100 White Blood Count 5.3 Red Blood Count 4.07 Hemoglobin 10.5 Hematocrit 33.6 Mean Corpuscular Volume 82.5 Mean Corpuscular Hemoglobin 25.9 Mean Corpuscular Hemoglobin Concent 31.4 Red Cell Distribution Width 20.6 Platelet Count 152 Mean Platelet Volume 8.5 Blood Urea Nitrogen 53 Creatinine 2.35 Random Glucose 196 Calcium Level 8.1 Magnesium Level 1.9 Sodium Level 144 Potassium Level 3.0 Chloride Level 107 Carbon Dioxide Level 27.9 Anion Gap 9 Estimat Glomerular Filtration Rate 27 Imaging Last Impressions Chest X-Ray 01/07/18 06 Signed Impressions: Service Date/Time: Sunday, January 07, 2018 04:26 - CONCLUSION: No significant change Lito Adkins MD Abdomen X-Ray 01/07/18 06 Signed Impressions: Service Date/Time: Sunday, January 07, 2018 04:29 - CONCLUSION: Possible slight interval improvement in gaseous distention of bowel Lito Adkins MD Abdomen/Pelvis CT 01/04/18 0000 Signed Impressions: Service Date/Time: Thursday, January 04, 2018 10:34 - CONCLUSION: 1. Abnormal bowel gas pattern most characteristic of an ileus. There is a small amount of ascitic fluid in right paracolic gutter and pelvis. 2. Bilateral pleural effusions right greater than left with consolidation in both posterior lung bases. 3. Nasogastric tube in place with the tip in the proximal duodenum. 4. Mild diverticulosis. John Neville MD Renal Ultrasound 01/01/18 0000 Signed Impressions: Service Date/Time: December 18:16 - CONCLUSION: 1. No evidence of hydronephrosis. 2. No new or significant changes compared to the prior exam 3. 2.2 cm right renal cyst. Luiz Frey MD Physical Exam HEENT: normocephalic; atraumatic; no jaundice. intubated CHEST: CTA CARDIAC: irr HR ABDOMEN: semifirm softer than yesterday, distended, tympanitic, BS hypoactive SKIN: Normal; no rash; no jaundice. 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 imaging suggestive ileus. no BM 2 d, minimal flatus. on reglan, enema is pending. - CHF, MUNA, AF S/P ablation, DANA per [facility] 01/07/18 s/p decompressive colonoscopy with finding diverticulosis. did not tolerate mg citrate. had PEA arrest overnight, per [facility] poss 2/2 aspiration feculent material. now intubated. he is distended and tympanitic. mult BM documented in EMR. NGT tube clamped KUB today showed poss slight improvement gaseous distention. PLAN - NGT to LIWS - continue reglan - consider rectal tube - keep NPO - further recs to follow pt seen by myself and Dr Bella and this note is on his behalf (Jyotsna Garsia) Physician Comments Seen and examined with BERNICE, intubated after PEA last night. S/p decompression colonoscopy under GA last night with good response. Follow X rays. NG to L.I.S (Juan Manuel Bella MD) Jyotsna Garsia Jan 07, 2018 15:39 Juan Manuel Bella MD Jan 07, 2018 16:55
[2018-01-07] MEDS: FUROSEMIDE INJ 100 MG in SODIUM CHLORIDE 0.9% INJ 90 ML IV SCH (16:03)
[2018-01-07] MEDS: DOXAZOSIN MESYLATE 4 MG TAB PO SCH (20:27)
[2018-01-07] MEDS: ATORVASTATIN 40 MG TAB PO SCH (20:28)
[2018-01-07] MEDS: PRAMIPEXOLE DIHYDROCHLORIDE 0.25 MG TAB PO SCH (20:34)
[2018-01-07 23:51] LABS: BICARBONATE 26.7 MEQ/L (21.0-32.0); CALCIUM 7.8 MG/DL (8.5-10.1); CREATININE 2.74 MG/DL (0.60-1.30); MAGNESIUM 2.5 MG/DL (1.5-2.5)
[2018-01-08] VITALS (16 sets, daily range): BP systolic 103–122; BP diastolic 59–66; PULSE 80–104; RESP 18–21; TEMP 98–99.8; O2SAT 95–98
[2018-01-08] MEDS: FREE WATER G-TUBE SCH ×6 (03:21→23:55)
[2018-01-08] MEDS: RESP: LEVALBUTEROL HYDROCHLORIDE 1.25 MG/3 ML NEB (SCH) NEB ×4 (04:34→20:20)
[2018-01-08] MEDS: ERYTHROMYCIN EC 250 MG TABEC PO SCH ×3 (05:05→21:59)
[2018-01-08] MEDS: PROPOFOL 1000 MG/100 ML INJ 100 ML IV PRN ×4 (05:05→20:00)
[2018-01-08] MEDS: METOCLOPRAMIDE HCL 10 MG/2 ML VIAL IV PUSH SCH ×3 (05:05→21:59)
[2018-01-08] MEDS: LEVOTHYROXINE SODIUM 125 MCG TAB PO SCH (05:05)
[2018-01-08 06:59] LABS: HEMATOCRIT 33.4 % (39.0-51.0); HEMOGLOBIN 10.6 GM/DL (13.0-17.0); MEAN CELL VOLUME 82.1 FL (80.0-100.0); MEAN CORPUSCULAR HEMOGLOBIN 26.1 PG (27.0-34.0); MEAN CORPUSCULAR HGB CONC 31.8 % (32.0-36.0); PLATELET COUNT 149 TH/MM3 (150-450); RED BLOOD COUNT 4.07 MIL/MM3 (4.50-5.90); WHITE BLOOD COUNT 7.1 TH/MM3 (4.0-11.0)
[2018-01-08 07:17] LABS: CALCIUM 7.8 MG/DL (8.5-10.1); CREATININE 2.74 MG/DL (0.60-1.30); MAGNESIUM 2.3 MG/DL (1.5-2.5)
[2018-01-08] MEDS: CHLORHEXIDINE 0.12% (ORAL KIT) 15 ML CUP MT SCH ×2 (08:07→21:43)
[2018-01-08] MEDS: ALLOPURINOL 100 MG TAB PO SCH (08:28)
[2018-01-08] MEDS: DOCUSATE SODIUM 50 MG/SENNA 8.6 MG TAB PO SCH ×2 (08:28→21:41)
[2018-01-08] MEDS: SODIUM CHLORIDE 0.9% FLUSH 10 ML FLUSH IV FLUSH SCH ×2 (08:29→21:38)
[2018-01-08] MEDS: PANTOPRAZOLE SODIUM 40 MG VIAL IV PUSH SCH (08:29)
[2018-01-08] MEDS: LACTULOSE SYRUP 20 GM/30 ML CUP PO SCH ×4 (08:29→21:41)
[2018-01-08] MEDS: BETHANECHOL CHL 25 MG TAB PO SCH (08:29)
[2018-01-08] MEDS: AMIODARONE 200 MG TAB PO SCH (08:29)
[2018-01-08] MEDS: SERTRALINE HCL 50 MG TAB PO SCH ×2 (08:29→21:41)
[2018-01-08] MEDS: APIXABAN 2.5 MG TABLET PO SCH ×2 (08:29→21:41)
[2018-01-08] MEDS: POLYETHYLENE GLYCOL 17 GM PKG PO SCH ×2 (08:30→21:42)
[2018-01-08] MEDS: INSULIN DETEMIR 100 UNITS/ML VIAL SQ SCH ×2 (08:30→21:58)
[2018-01-08] MEDS: INSULIN ASPART SUPPLEMENTAL SCALE SQ SCH ×4 (08:51→21:59)
[2018-01-08] MEDS: FUROSEMIDE INJ 100 MG in SODIUM CHLORIDE 0.9% INJ 90 ML IV SCH (11:09)
--- NOTE | 2018-01-08 13:59 | HHI.CCPN ---
Subjective Remarks/Hospital Course 72-year-old gentleman with multiple medical problems including morbid obesity, obstructive sleep apnea, diabetes mellitus, and chronic kidney insufficiency, underwent cardiac ablation for uncontrolled A. fib. Patient was intubated for procedure, and is transferred to ICU postprocedure for weaning of the mechanical ventilation due to increased abdominal girth. 01/01: Afebrile. Patient extremely agitated with weaning sedation. Currently on PSV trial.. Chest x-ray revealed moderate size right pleural effusion. Currently in sinus rhythm 01/02: Started on BiPAP overnight 09/09 at 50% Furosemide gtt not initiated until this AM. Will attempt to diurese. Will possibly need thoracentesis in a.m. when off apixaban 24 hours. Possible ileus on CAT scan. Started on metoclopramide 01/03: Resting comfortably in bed in no acute distress. Abdomen appears more distended today. Currently on high flow nasal cannula 35 L 70% which is off the side not in his nares satting 89%. 01/04: -1650 from NG tube overnight. Low blood sugar this a.m. noted. Will hold insulin detemir give D5 one half normal saline along with extra potassium chloride today. CT abdomen/pelvis pending. Positive BM overnight. Abdomen remains distended.. BUN and creatinine are slowly decreasing. 01/05: Another emesis today. Will likely need EGD/colonoscopy in a.m. Holding apixaban. Did not tolerate mag citrate. Abdomen remains distended without BM. SUBJECTIVE: 01/06: Status post colonoscopy today with decompression. Abdomen is less distended. Remains on nasal cannula. Looks and appears more comfortable. 01/07: PEA arrest overnight. now intubated and back in afib RVR. cardiac arrest may have been secondary to aspiration, given feculent material suctioned out of airway post-intubation. 01/08: off vasopressors. diuresing on lasix drip. large BM overnight. remains intubated. Objective Vital Signs Date Time Temp Pulse Resp B/P (MAP) Pulse Ox O2 Delivery O2 Flow Rate FiO2 01/08/18 12:00 50 01/08/18 12:00 98.0 80 18 107/66 (80) 96 01/08/18 12:00 Mechanical Ventilator 01/06/18 23:20 15.00 Intake and Output 4/501/08/18 01/09/18 08:00 16:00 00:00 Intake Total 600 ml 200 ml Output Total 1400 ml Balance -800 ml 200 ml Result Diagram: 01/08/18 0510 01/08/18 0510 Imaging Last Impressions Abdomen X-Ray 01/06/18 0600 Signed Impressions: Service Date/Time: Saturday, January 06, 2018 04:38 - CONCLUSION: Persistent prominent gaseous distention of bowel throughout Lito Adkins MD Abdomen/Pelvis CT 01/04/18 0000 Signed Impressions: Service Date/Time: Thursday, January 04, 2018 10:34 - CONCLUSION: 1. Abnormal bowel gas pattern most characteristic of an ileus. There is a small amount of ascitic fluid in right paracolic gutter and pelvis. 2. Bilateral pleural effusions right greater than left with consolidation in both posterior lung bases. 3. Nasogastric tube in place with the tip in the proximal duodenum. 4. Mild diverticulosis. John Neville MD Chest X-Ray 01/03/18 0000 Signed Impressions: Service Date/Time: Wednesday, January 03, 2018 09:20 - CONCLUSION: No significant change. Bilateral parenchymal opacities remain with apparent right effusion. John Neville MD Renal Ultrasound 01/01/18 0000 Signed Impressions: Service Date/Time: December 18:16 - CONCLUSION: 1. No evidence of hydronephrosis. 2. No new or significant changes compared to the prior exam 3. 2.2 cm right renal cyst. Luiz Frey MD Objective Remarks GENERAL: 72-year-old male, intubated, sedated, critically ill. SKIN: Warm and dry. HEAD: Normocephalic. EYES: No scleral icterus. No injection or drainage. NECK: Supple, trachea midline. CARDIOVASCULAR: Tachycardic, irregular. HR in the 130s, afib. RESPIRATORY: equal chest rise. 40% fio2. peep 5. rr 15, tv 500 prvc mode. GASTROINTESTINAL: Abdomen protuberant/obese/distended. MUSCULOSKELETAL: Trace to 1+ lower extremity edema. NEURO EXAM: RASS -3. sedated, intubated. A/P Assessment and Plan Assessment: 72yM s/p afib ablation now with recurrent acute hypoxic respiratory failure and s/p PEA arrest which may have been secondary to aspiration event. afib now under better control. agree with continued forced diuresis. will start weaning mechanical ventilation, but may be slow wean due to recurrent organ failure. critically ill and off pathway. Neuro/Psych: Depression/anxiety Chronic narcotic use Continue sertraline 50 mg twice daily/home medication for depression Continue pramipexole 0.5 mg p.o. daily for extrapyramidal side effects Currently holding buspirone 5 mg 3 times daily anxiety On oxycodone/acetaminophen 5/325 1 - 2 tablets every 4 hours as needed pain fentanyl, prop for goal RASS -2. sedation vacation. CV: Status post ablation for A. fib/flutter Chronic diastolic heart failure ejection fraction 45-50% 08/22 Hypertension Dyslipidemia recurrent atrial fibrillation with rapid ventricular response s/p PEA arrest 01/07 Continue amiodarone 200 mg by mouth daily Continue atorvastatin 40 mg p.o. daily for his lipidemia At home on fish oil/cholecalciferol 1200/1000 1 tablet twice daily/home medication Holding diltiazem 240 mg p.o. daily/home medication Holding ramipril 5 mg p.o. daily for hypertension with acute kidney injury dig level 01/04 is low. add additional 0.25mg dig iv x 1. Notify cardiology. Dr. Ramirez evaluated no further plans at this time aggressive replacement of electrolytes, targeting K > 4.5, Mg > 2.5 Resp: MUNA -nocturnal CPAP 8 cm H2O Moderate right pleural effusion Acute hypoxic and hypercarbic respiratory failure Extubated 01/02. reintubated 01/07 during PEA arrest wean fio2 for goal spo2 > 90% vent bundle hob elevated nebs restart forced diuresis. Acapella every 6 hours levalbuterol 1.25 mg NEB q6h start SBTs daily. GI: Gastroesophageal reflux disease Elevated transaminases Ileus Sigmoid diverticulosis Internal/external hemorrhoids NGT to LIWS as needed. Continue pantoprazole 40 mg IV. daily for gastroesophageal disease. On omeprazole 20 mg p.o. daily at home Docusate sodium/senna 1 tablet twice daily for bowel regimen with polyethylene glycol 17 g twice daily and lactulose 30 cc 4 times daily Follow transaminases intermittently is likely congestion. Further workup and On metoclopramide 5 mg IV every 8 hours and erythromycin 250 every 8 hours KUB reveals small bowel/transverse and descending colon air filled loops CT abdomen/pelvis revealed dilated small and large bowel. Consult to GI Colonoscopy by Dr. Bella/revealed sigmoid diverticulosis. Decompression of colon. Internal and external hemorrhoids. : BPH/overflow Fowler catheter has been placed for accurate I's and O's in a critically ill patient: continue given critical illness today and forced diuresis. Continue doxazosin 4 mg daily and bethanechol 25 mg daily continue Lasix drip Endo: Diabetes mellitus Hypothyroidism Low testosterone Currently on insulin detemir 4 units twice daily with NovoLog sliding scale insulin/low regimen before meals at bedtime At home on insulin glargine 12 units twice daily with sliding scale insulin Continue levothyroxine 125 mcg p.o. daily. TSH 3.06 Holding testosterone Renal: Acute kidney injury likely secondary to cardiorenal syndrome - resolving. Renal cyst right 2.2 cm Followed by nephrology. Monitor urine output Accurate I's and O's. Renal ultrasound with no hydronephrosis. Right renal cyst 2.2 cm. Rare eosinophils urine. Heme: Chronic apixaban use Normocytic normochromic anemia Currently renally dose of 2.5 mg twice daily. Resume 4/4 a.m. Monitor CBC daily. Follow trends ID: Monitor for infection FEN: Hypokalemia Hypophosphatemia 1 g Neutra-Phos p.o. now. Recheck in a.m. Replace electrolytes as clinically indicated MSK: Osteoporosis/osteoarthritis PT evaluate and treat Access -central line placed / post cardiac arrest. - fowler. Prophylaxis -GI -pantoprazole -DVT -SCD/apixaban Eduardo Diaz MD Jan 08, 2018 13:59
--- NOTE | 2018-01-08 14:34 | HHI.GIFU ---
Subjective Remarks + large liquid stool today. Less distended. (Jyotsna Garsia) Objective Vitals I&O Vital Signs Date Time Temp Pulse Resp B/P (MAP) Pulse Ox O2 Delivery O2 Flow Rate FiO2 01/08/18 14:00 91 01/08/18 12:00 50 01/08/18 12:00 98.0 80 18 107/66 (80) 96 01/08/18 12:00 96 Mechanical Ventilator 50 01/08/18 12:00 91 01/08/18 11:22 96 50 01/08/18 10:00 90 01/08/18 08:36 96 50 01/08/18 08:00 99.8 93 19 122/65 (84) 95 01/08/18 08:00 93 01/08/18 08:00 50 01/08/18 08:00 95 Mechanical Ventilator 50 01/08/18 06:00 92 01/08/18 04:34 95 40 01/08/18 04:00 91 01/08/18 04:00 96 Mechanical Ventilator 50 01/08/18 04:00 50 01/08/18 04:00 99.0 104 21 111/59 (76) 96 01/08/18 02:00 93 01/08/18 00:00 91 01/08/18 00:00 98.6 96 20 113/65 (81) 96 01/08/18 00:00 96 Mechanical Ventilator 50 01/08/18 00:00 50 01/07/18 23:53 95 50 01/07/18 22:00 93 01/07/18 20:27 96 50 01/07/18 20:00 93 01/07/18 20:00 96 Mechanical Ventilator 50 01/07/18 20:00 50 01/07/18 20:00 98.6 96 20 113/65 (81) 96 01/07/18 18:00 92 01/07/18 16:00 93 01/07/18 16:00 99.3 93 21 114/61 (78) 96 01/07/18 16:00 96 Mechanical Ventilator 50 01/07/18 16:00 50 I/O 01/07/18 01/07/18 01/07/18 01/08/18 01/08/18 01/08/18 07:00 15:00 23:00 07:00 15:00 23:00 Intake Total 500 ml 100 ml 700 ml 600 ml 200 ml Output Total 1750 ml 1750 ml 1400 ml Balance -1250 ml 100 ml -1050 ml -800 ml 200 ml Intake Oral 500 ml IV Total 100 ml 100 ml 200 ml Other 600 ml 600 ml Output Urine Total 150 ml 250 ml 900 ml Gastric Drainage Total 1600 ml 1500 ml 500 ml # Bowel Movements 2 1 3 Laboratory Laboratory Tests Test 01/07/18 23:10 01/08/18 05:10 Blood Urea Nitrogen 59 60 Creatinine 2.74 2.74 Random Glucose 162 156 Calcium Level 7.8 7.8 Magnesium Level 2.5 2.3 Sodium Level 144 146 Potassium Level 3.6 3.3 Chloride Level 108 109 Carbon Dioxide Level 26.7 28.0 Anion Gap 9 9 Estimat Glomerular Filtration Rate 23 23 White Blood Count 7.1 Red Blood Count 4.07 Hemoglobin 10.6 Hematocrit 33.4 Mean Corpuscular Volume 82.1 Mean Corpuscular Hemoglobin 26.1 Mean Corpuscular Hemoglobin Concent 31.8 Red Cell Distribution Width 21.0 Platelet Count 149 Mean Platelet Volume 9.0 Imaging Last Impressions Chest X-Ray 01/07/18 06 Signed Impressions: Service Date/Time: Sunday, January 07, 2018 04:26 - CONCLUSION: No significant change Lito Adkins MD Abdomen X-Ray 01/07/18 06 Signed Impressions: Service Date/Time: Sunday, January 07, 2018 04:29 - CONCLUSION: Possible slight interval improvement in gaseous distention of bowel Lito Adkins MD Abdomen/Pelvis CT 01/04/18 0000 Signed Impressions: Service Date/Time: Thursday, January 04, 2018 10:34 - CONCLUSION: 1. Abnormal bowel gas pattern most characteristic of an ileus. There is a small amount of ascitic fluid in right paracolic gutter and pelvis. 2. Bilateral pleural effusions right greater than left with consolidation in both posterior lung bases. 3. Nasogastric tube in place with the tip in the proximal duodenum. 4. Mild diverticulosis. John Neville MD Renal Ultrasound 01/01/18 0000 Signed Impressions: Service Date/Time: December 18:16 - CONCLUSION: 1. No evidence of hydronephrosis. 2. No new or significant changes compared to the prior exam 3. 2.2 cm right renal cyst. Luiz Frey MD Physical Exam HEENT: normocephalic; atraumatic; no jaundice. intubated CHEST: CTA CARDIAC: irr HR ABDOMEN: soft, distended but less than yesterday, tympanitic, BS hypoactive SKIN: Normal; no rash; no jaundice. FLOAT TENDER: sedated on vent (Jyotsna Garsia) Assessment and Plan Plan ASSESSMENT - abd distention, n/v - visibly distended, tympanitic. imaging suggestive ileus. no BM 2 d, minimal flatus. on reglan, enema is pending. - CHF, MUNA, AF S/P ablation, DANA per [facility] 01/07/18 s/p decompressive colonoscopy with finding diverticulosis. did not tolerate mg citrate. had PEA arrest overnight, per [facility] poss 2/2 aspiration feculent material. now intubated. he is distended and tympanitic. mult BM documented in EMR. NGT tube clamped KUB today showed poss slight improvement gaseous distention. 01/08/18 less distended. + large liquid stool. belly softer. PLAN - NGT to LIWS - continue reglan - continue EES - continue bowel regimen - further recs to follow pt seen by myself and Dr Bella and this note is on his behalf (Jyotsna Garsia) Physician Comments Seen and examined with [employer]IOR COMPENSATION ANALYST, still intubated. Abdomen softer, having BM's. Can use NG for TF as needed.GI will sign off, reconsult as needed. Thank you (Juan Manuel Bella MD) Jyotsna Garsia Jan 08, 2018 14:34 Juan Manuel Bella MD Jan 08, 2018 17:14
[2018-01-08 15:07] LABS: BICARBONATE 27.7 MEQ/L (21.0-32.0); CALCIUM 7.9 MG/DL (8.5-10.1); CREATININE 2.79 MG/DL (0.60-1.30); MAGNESIUM 2.2 MG/DL (1.5-2.5)
--- NOTE | 2018-01-08 15:58 | HHI.NPPN ---
Subjective History of Present Illness 72 year old male with Chf/Atrial tachycardia/Afib admitted with Tachyarrhythmia Objective Data Data 01/08/18 01/09/18 18:59 06:59 Intake Total 200 ml Balance 200 ml IV Total 200 ml Vital Signs Date Time Temp Pulse Resp B/P (MAP) Pulse Ox O2 Delivery O2 Flow Rate FiO2 01/08/18 14:42 97 50 01/08/18 14:00 91 01/08/18 12:00 50 01/08/18 12:00 98.0 80 18 107/66 (80) 96 01/08/18 12:00 96 Mechanical Ventilator 50 01/08/18 12:00 91 01/08/18 11:22 96 50 01/08/18 10:00 90 01/08/18 08:36 96 50 01/08/18 08:00 99.8 93 19 122/65 (84) 95 01/08/18 08:00 93 01/08/18 08:00 50 01/08/18 08:00 95 Mechanical Ventilator 50 01/08/18 06:00 92 01/08/18 04:34 95 40 01/08/18 04:00 91 01/08/18 04:00 96 Mechanical Ventilator 50 01/08/18 04:00 50 01/08/18 04:00 99.0 104 21 111/59 (76) 96 01/08/18 02:00 93 01/08/18 00:00 91 01/08/18 00:00 98.6 96 20 113/65 (81) 96 01/08/18 00:00 96 Mechanical Ventilator 50 01/08/18 00:00 50 01/07/18 23:53 95 50 01/07/18 22:00 93 01/07/18 20:27 96 50 01/07/18 20:00 93 01/07/18 20:00 96 Mechanical Ventilator 50 01/07/18 20:00 50 01/07/18 20:00 98.6 96 20 113/65 (81) 96 01/07/18 18:00 92 01/07/18 16:00 93 01/07/18 16:00 99.3 93 21 114/61 (78) 96 01/07/18 16:00 96 Mechanical Ventilator 50 01/07/18 16:00 50 -: 01/08/18 0510 01/08/18 1351 Physical Exam General Appearance: Well Developed, Well Nourished, No Acute Distress, Comfortable Neck Neck Exam: Neck Supple Pulmonary Resp Exam: No Distress, Crackles, Rhonchi, Decreased Bases, Diminished Breath Sounds Cardiology CV Exam: Tachycardia Gastrointestinal/Abdomen GI Exam: Soft, Non-Tender, Bowel Sounds Present Extremeties Extremities Exam: Moderate Edema, Pitting Edema Neurologic Neuro Exam: Alert, Awake Assessment/Plan Problem List: (1) Acute renal failure ICD Codes: N17.9 - Acute kidney failure, unspecified Status: Acute Plan: Patient has cardiogenic shock and low blood pressure contributing, and cardiorenal syndrome Plan is to cardiovert him once he is stable on Eliquis He has underlying tachyarrhythmia Atrial fibrillation/atrial tachycardia s/p cardiac Ablation UOP increased with Lasix drip Cr 2.7 Ileus on NGT suction K replaced follow BMP Lasix drip may decrease to 2.5 mg /hr (2) Chronic kidney disease, stage III (moderate) ICD Codes: N18.3 - Chronic kidney disease, stage III (moderate) Status: Acute Plan: Baseline care around 1.7 (3) Congestive heart failure ICD Codes: I50.9 - Heart failure, unspecified Status: Acute Plan: He is in cardiogenic shock low blood pressure causing the cardiorenal syndrome (4) PAF (paroxysmal atrial fibrillation) ICD Codes: I48.0 - Paroxysmal atrial fibrillation Plan: Cardiology was following (5) Diabetes ICD Codes: E11.9 - Diabetes Status: Chronic Plan: Monitor blood glucose (6) Acute on chronic systolic CHF (congestive heart failure) ICD Codes: I50.23 - Acute on chronic systolic (congestive) heart failure Problem Qualifiers (1) Congestive heart failure: Qualified Codes: I50.9 - Heart failure, unspecified Susan Solo MD Jan 08, 2018 15:57
[2018-01-08] MEDS ORDERED: POTASSIUM CHLORIDE 25 MEQ EFFERVESCENT TAB NG ONE (18:15)
[2018-01-08] MEDS ORDERED: POTASSIUM CHLOR 40 MEQ PREMIX 100 ML IV ONE (18:15)
[2018-01-08] MEDS: ATORVASTATIN 40 MG TAB PO SCH (21:41)
[2018-01-08] MEDS: DOXAZOSIN MESYLATE 4 MG TAB PO SCH (21:41)
[2018-01-08] MEDS: PRAMIPEXOLE DIHYDROCHLORIDE 0.25 MG TAB PO SCH (21:42)
[2018-01-08] MEDS: POTASSIUM BICARBONATE 25 MEQ EFFERVESCENT TAB NG SCH (21:59)
[2018-01-08 23:43] LABS: BICARBONATE 29.2 MEQ/L (21.0-32.0); CALCIUM 7.9 MG/DL (8.5-10.1); CREATININE 2.67 MG/DL (0.60-1.30); MAGNESIUM 2.1 MG/DL (1.5-2.5)
[2018-01-09] VITALS (16 sets, daily range): BP systolic 104–147; BP diastolic 55–65; PULSE 88–106; RESP 15–21; TEMP 98.5–99.7; O2SAT 96–100
[2018-01-09] MEDS: PROPOFOL 1000 MG/100 ML INJ 100 ML IV PRN ×5 (02:05→22:57)
[2018-01-09] MEDS: FREE WATER G-TUBE SCH ×5 (03:04→20:00)
[2018-01-09] MEDS: RESP: LEVALBUTEROL HYDROCHLORIDE 1.25 MG/3 ML NEB (SCH) NEB ×4 (03:40→19:40)
[2018-01-09] MEDS: ERYTHROMYCIN EC 250 MG TABEC PO SCH ×3 (05:05→22:00)
[2018-01-09] MEDS: LEVOTHYROXINE SODIUM 125 MCG TAB PO SCH (05:05)
[2018-01-09] MEDS: METOCLOPRAMIDE HCL 10 MG/2 ML VIAL IV PUSH SCH ×3 (05:06→22:00)
[2018-01-09 05:55] LABS: HEMATOCRIT 31.6 % (39.0-51.0); HEMOGLOBIN 10.2 GM/DL (13.0-17.0); MEAN CELL VOLUME 81.9 FL (80.0-100.0); MEAN CORPUSCULAR HEMOGLOBIN 26.3 PG (27.0-34.0); MEAN CORPUSCULAR HGB CONC 32.1 % (32.0-36.0); PLATELET COUNT 158 TH/MM3 (150-450); RED BLOOD COUNT 3.86 MIL/MM3 (4.50-5.90); RED CELL DISTRIBUTION WIDTH 21.3 % (11.6-17.2); WHITE BLOOD COUNT 7.9 TH/MM3 (4.0-11.0)
[2018-01-09 06:26] LABS: BICARBONATE 25.9 MEQ/L (21.0-32.0); CALCIUM 7.7 MG/DL (8.5-10.1); CREATININE 2.51 MG/DL (0.60-1.30)
[2018-01-09] MEDS: INSULIN ASPART SUPPLEMENTAL SCALE SQ SCH ×4 (08:00→20:57)
[2018-01-09] MEDS: CHLORHEXIDINE 0.12% (ORAL KIT) 15 ML CUP MT SCH ×2 (08:00→20:00)
[2018-01-09] MEDS: LACTULOSE SYRUP 20 GM/30 ML CUP PO SCH ×4 (09:00→20:57)
[2018-01-09] MEDS: POLYETHYLENE GLYCOL 17 GM PKG PO SCH ×2 (09:00→20:57)
[2018-01-09] MEDS: INSULIN DETEMIR 100 UNITS/ML VIAL SQ SCH ×2 (09:00→20:52)
[2018-01-09] MEDS: SODIUM CHLORIDE 0.9% FLUSH 10 ML FLUSH IV FLUSH SCH ×2 (09:00→20:56)
[2018-01-09] MEDS: ALLOPURINOL 100 MG TAB PO SCH (09:29)
[2018-01-09] MEDS: SERTRALINE HCL 50 MG TAB PO SCH ×2 (09:29→20:51)
[2018-01-09] MEDS: AMIODARONE 200 MG TAB PO SCH (09:29)
[2018-01-09] MEDS: BETHANECHOL CHL 25 MG TAB PO SCH (09:29)
[2018-01-09] MEDS: DOCUSATE SODIUM 50 MG/SENNA 8.6 MG TAB PO SCH ×2 (09:29→20:51)
[2018-01-09] MEDS: APIXABAN 2.5 MG TABLET PO SCH ×2 (09:30→20:51)
[2018-01-09] MEDS: PANTOPRAZOLE SODIUM 40 MG VIAL IV PUSH SCH (09:30)
[2018-01-09] MEDS: POTASSIUM BICARBONATE 25 MEQ EFFERVESCENT TAB NG SCH ×2 (09:30→20:57)
[2018-01-09] MEDS ORDERED: POTASSIUM CHLORIDE 25 MEQ EFFERVESCENT TAB NG ONE (12:45)
[2018-01-09] MEDS: MAGNESIUM SULFAT 1 GM PREMIX 100 ML x2 bags IV SCH ×2 (12:56→13:24)
[2018-01-09] MEDS: POTASSIUM CHLOR 20 MEQ PREMIX 100 ML IV SCH ×2 (12:56→14:21)
--- NOTE | 2018-01-09 15:51 | HHI.NPPN ---
Subjective History of Present Illness 72 year old male with Chf/Atrial tachycardia/Afib admitted with Tachyarrhythmia Objective Data Data Vital Signs Date Time Temp Pulse Resp B/P (MAP) Pulse Ox O2 Delivery O2 Flow Rate FiO2 01/09/18 14:17 97 35 01/09/18 14:00 97 01/09/18 12:00 98 Mechanical Ventilator 35 01/09/18 12:00 97 01/09/18 12:00 98.5 97 21 122/65 (84) 98 01/09/18 12:00 35 01/09/18 11:13 99 35 01/09/18 11:13 35 01/09/18 10:00 94 01/09/18 08:17 100 40 01/09/18 08:00 106 01/09/18 08:00 Mechanical Ventilator 40 01/09/18 08:00 98.6 98 19 138/57 (84) 100 01/09/18 08:00 50 01/09/18 04:00 Mechanical Ventilator 40 01/09/18 04:00 99.0 89 16 104/59 (74) 96 01/09/18 04:00 50 01/09/18 03:42 97 40 01/09/18 01:09 99 50 01/09/18 00:00 99.7 96 17 128/55 (79) 100 01/09/18 00:00 50 01/09/18 00:00 Mechanical Ventilator 50 01/08/18 20:19 98 50 01/08/18 20:00 99.0 100 20 106/65 (79) 97 01/08/18 20:00 50 01/08/18 20:00 Mechanical Ventilator 50 01/08/18 18:00 95 01/08/18 16:00 89 01/08/18 16:00 98.4 89 21 103/59 (74) 95 01/08/18 16:00 50 01/08/18 16:00 95 Mechanical Ventilator 50 -: 01/09/18 0540 01/09/18 0540 Physical Exam General Appearance: Well Developed, Well Nourished, No Acute Distress, Comfortable Neck Neck Exam: Neck Supple Pulmonary Resp Exam: No Distress, Crackles, Rhonchi, Decreased Bases, Diminished Breath Sounds Cardiology CV Exam: Tachycardia Gastrointestinal/Abdomen GI Exam: Soft, Non-Tender, Bowel Sounds Present Extremeties Extremities Exam: Moderate Edema, Pitting Edema Neurologic Neuro Exam: Alert, Awake Assessment/Plan Problem List: (1) Acute renal failure ICD Codes: N17.9 - Acute kidney failure, unspecified Status: Acute Plan: Patient has cardiogenic shock and low blood pressure contributing, and cardiorenal syndrome Plan is to cardiovert him once he is stable on Eliquis He has underlying tachyarrhythmia Atrial fibrillation/atrial tachycardia s/p cardiac Ablation UOP increased with Lasix drip Cr 2.51 Ileus on NGT suction K replaced follow BMP Lasix drip 2.5 mg /hr (2) Chronic kidney disease, stage III (moderate) ICD Codes: N18.3 - Chronic kidney disease, stage III (moderate) Status: Acute Plan: Baseline care around 1.7 (3) Congestive heart failure ICD Codes: I50.9 - Heart failure, unspecified Status: Acute Plan: He is in cardiogenic shock low blood pressure causing the cardiorenal syndrome (4) PAF (paroxysmal atrial fibrillation) ICD Codes: I48.0 - Paroxysmal atrial fibrillation Plan: Cardiology was following (5) Diabetes ICD Codes: E11.9 - Diabetes Status: Chronic Plan: Monitor blood glucose (6) Acute on chronic systolic CHF (congestive heart failure) ICD Codes: I50.23 - Acute on chronic systolic (congestive) heart failure Problem Qualifiers (1) Congestive heart failure: Qualified Codes: I50.9 - Heart failure, unspecified Susan Solo MD Jan 09, 2018 15:51
--- NOTE | 2018-01-09 16:02 | HHI.CCPN ---
Subjective Remarks/Hospital Course 72-year-old gentleman with multiple medical problems including morbid obesity, obstructive sleep apnea, diabetes mellitus, and chronic kidney insufficiency, underwent cardiac ablation for uncontrolled A. fib. Patient was intubated for procedure, and is transferred to ICU postprocedure for weaning of the mechanical ventilation due to increased abdominal girth. 01/01: Afebrile. Patient extremely agitated with weaning sedation. Currently on PSV trial.. Chest x-ray revealed moderate size right pleural effusion. Currently in sinus rhythm 01/02: Started on BiPAP overnight 09/09 at 50% Furosemide gtt not initiated until this AM. Will attempt to diurese. Will possibly need thoracentesis in a.m. when off apixaban 24 hours. Possible ileus on CAT scan. Started on metoclopramide 01/03: Resting comfortably in bed in no acute distress. Abdomen appears more distended today. Currently on high flow nasal cannula 35 L 70% which is off the side not in his nares satting 89%. 01/04: -1650 from NG tube overnight. Low blood sugar this a.m. noted. Will hold insulin detemir give D5 one half normal saline along with extra potassium chloride today. CT abdomen/pelvis pending. Positive BM overnight. Abdomen remains distended.. BUN and creatinine are slowly decreasing. 01/05: Another emesis today. Will likely need EGD/colonoscopy in a.m. Holding apixaban. Did not tolerate mag citrate. Abdomen remains distended without BM. SUBJECTIVE: 01/06: Status post colonoscopy today with decompression. Abdomen is less distended. Remains on nasal cannula. Looks and appears more comfortable. 01/07: PEA arrest overnight. now intubated and back in afib RVR. cardiac arrest may have been secondary to aspiration, given feculent material suctioned out of airway post-intubation. 01/08: off vasopressors. diuresing on lasix drip. large BM overnight. remains intubated. 01/09: Finally emptying his colon. Continued good diuresis but unable to wean from ventilator. Objective Vital Signs Date Time Temp Pulse Resp B/P (MAP) Pulse Ox O2 Delivery O2 Flow Rate FiO2 01/09/18 14:17 97 35 01/09/18 14:00 97 01/09/18 12:00 Mechanical Ventilator 01/09/18 12:00 98.5 21 122/65 (84) 01/06/18 23:20 15.00 Intake and Output 01/09/18 01/09/18 01/09/18 07:59 15:59 23:59 Intake Total 700 ml Output Total 1950 ml Balance -1250 ml Result Diagram: 01/09/18 0540 01/09/18 0540 Imaging Last Impressions Abdomen X-Ray 01/06/18 0600 Signed Impressions: Service Date/Time: Saturday, January 06, 2018 04:38 - CONCLUSION: Persistent prominent gaseous distention of bowel throughout Lito Adkins MD Abdomen/Pelvis CT 01/04/18 0000 Signed Impressions: Service Date/Time: Thursday, January 04, 2018 10:34 - CONCLUSION: 1. Abnormal bowel gas pattern most characteristic of an ileus. There is a small amount of ascitic fluid in right paracolic gutter and pelvis. 2. Bilateral pleural effusions right greater than left with consolidation in both posterior lung bases. 3. Nasogastric tube in place with the tip in the proximal duodenum. 4. Mild diverticulosis. John Neville MD Chest X-Ray 01/03/18 0000 Signed Impressions: Service Date/Time: Wednesday, January 03, 2018 09:20 - CONCLUSION: No significant change. Bilateral parenchymal opacities remain with apparent right effusion. John Neville MD Renal Ultrasound 01/01/18 0000 Signed Impressions: Service Date/Time: December 18:16 - CONCLUSION: 1. No evidence of hydronephrosis. 2. No new or significant changes compared to the prior exam 3. 2.2 cm right renal cyst. Luiz Frey MD Objective Remarks GENERAL: 72-year-old male, intubated, sedated, critically ill. SKIN: Warm and dry. HEAD: Normocephalic. EYES: No scleral icterus. No injection or drainage. NECK: Supple, trachea midline. CARDIOVASCULAR: Tachycardic, irregular. HR in the 110s, afib. RESPIRATORY: equal chest rise. peep 5. rr 15, tv 500 prvc mode. diffuse crackles persist. GASTROINTESTINAL: Abdomen protuberant/obese/distended. Few bowel sounds. MUSCULOSKELETAL: Trace to 1+ lower extremity edema. Well perfused. NEURO EXAM: RASS -3. sedated, intubated. A/P Assessment and Plan Assessment: 72yM s/p afib ablation now with recurrent acute hypoxic respiratory failure and s/p PEA arrest which may have been secondary to aspiration event. afib now under better control. agree with continued forced diuresis. will start weaning mechanical ventilation, but may be slow wean due to recurrent organ failure. critically ill and off pathway. Neuro/Psych: Depression/anxiety Chronic narcotic use Continue sertraline 50 mg twice daily/home medication for depression Continue pramipexole 0.5 mg p.o. daily for extrapyramidal side effects Currently holding buspirone 5 mg 3 times daily anxiety On oxycodone/acetaminophen 5/325 1 - 2 tablets every 4 hours as needed pain fentanyl, prop for goal RASS -2. sedation vacation. CV: Status post ablation for A. fib/flutter Chronic diastolic heart failure ejection fraction 45-50% 08/22 Hypertension Dyslipidemia recurrent atrial fibrillation with rapid ventricular response s/p PEA arrest 01/07 Continue amiodarone 200 mg by mouth daily Continue atorvastatin 40 mg p.o. daily for his lipidemia At home on fish oil/cholecalciferol 1200/1000 1 tablet twice daily/home medication Holding diltiazem 240 mg p.o. daily/home medication Holding ramipril 5 mg p.o. daily for hypertension with acute kidney injury dig level 01/04 is low. add additional 0.25mg dig iv x 1. Notify cardiology. Dr. Ramirez evaluated no further plans at this time aggressive replacement of electrolytes, targeting K > 4.5, Mg > 2.5 Resp: MUNA -nocturnal CPAP 8 cm H2O Moderate right pleural effusion Acute hypoxic and hypercarbic respiratory failure Extubated 01/02. reintubated 01/07 during PEA arrest wean fio2 for goal spo2 > 90% vent bundle hob elevated nebs restart forced diuresis. Acapella every 6 hours levalbuterol 1.25 mg NEB q6h SBTs daily. GI: Gastroesophageal reflux disease Elevated transaminases Ileus Sigmoid diverticulosis Internal/external hemorrhoids NGT to LIWS as needed. Continue pantoprazole 40 mg IV. daily for gastroesophageal disease. On omeprazole 20 mg p.o. daily at home Docusate sodium/senna 1 tablet twice daily for bowel regimen with polyethylene glycol 17 g twice daily and lactulose 30 cc 4 times daily Follow transaminases intermittently is likely congestion. Further workup and On metoclopramide 5 mg IV every 8 hours and erythromycin 250 every 8 hours KUB reveals small bowel/transverse and descending colon air filled loops CT abdomen/pelvis revealed dilated small and large bowel. Consult to GI Colonoscopy by Dr. Bella/revealed sigmoid diverticulosis. Decompression of colon. Internal and external hemorrhoids. : BPH/overflow Fowler catheter has been placed for accurate I's and O's in a critically ill patient: continue given critical illness today and forced diuresis. Continue doxazosin 4 mg daily and bethanechol 25 mg daily continue Lasix drip, replace electrolytes Endo: Diabetes mellitus Hypothyroidism Low testosterone Currently on insulin detemir 4 units twice daily with NovoLog sliding scale insulin/low regimen before meals at bedtime At home on insulin glargine 12 units twice daily with sliding scale insulin Continue levothyroxine 125 mcg p.o. daily. TSH 3.06 Holding testosterone Renal: Acute kidney injury likely secondary to cardiorenal syndrome - resolving. Renal cyst right 2.2 cm Followed by nephrology. Monitor urine output Accurate I's and O's. Renal ultrasound with no hydronephrosis. Right renal cyst 2.2 cm. Rare eosinophils urine. Heme: Chronic apixaban use Normocytic normochromic anemia Currently renally dose of 2.5 mg twice daily. Resume 4/4 a.m. Monitor CBC daily. Follow trends ID: Monitor for infection FEN: Hypokalemia Hypophosphatemia 1 g Neutra-Phos p.o. now. Recheck in a.m. Replace electrolytes as clinically indicated MSK: Osteoporosis/osteoarthritis PT evaluate and treat Access -central line placed 01/07 post cardiac arrest. - fowler. Prophylaxis -GI -pantoprazole -DVT -SCD/apixaban Overall impression: This gentleman remains critically ill following a cardiac arrest 2 days ago. He remains in fluid overload from acute on chronic diastolic heart failure. Renal function is compromised. His hemodynamics are tenuous at this point. Critical care time 45 minutes Justin Young MD Jan 09, 2018 16:02
[2018-01-09] MEDS: FUROSEMIDE INJ 100 MG in SODIUM CHLORIDE 0.9% INJ 90 ML IV SCH (17:05)
[2018-01-09 19:28] LABS: BICARBONATE 27.9 MEQ/L (21.0-32.0); CALCIUM 7.2 MG/DL (8.5-10.1); CREATININE 2.21 MG/DL (0.60-1.30)
[2018-01-09 20:00] LABS: CALCIUM-PROTEIN CORRECTED 7.7 MG/DL (8.5-10.1); TOTAL PROTEIN 6.1 GM/DL (6.4-8.2)
[2018-01-09] MEDS: DOXAZOSIN MESYLATE 4 MG TAB PO SCH (20:50)
[2018-01-09] MEDS: ATORVASTATIN 40 MG TAB PO SCH (20:50)
[2018-01-09] MEDS: PRAMIPEXOLE DIHYDROCHLORIDE 0.25 MG TAB PO SCH (20:50)
[2018-01-10] VITALS (18 sets, daily range): BP systolic 109–124; BP diastolic 58–77; PULSE 73–97; RESP 10–20; TEMP 98.6–99.1; O2SAT 96–99
[2018-01-10] MEDS: RESP: LEVALBUTEROL HYDROCHLORIDE 1.25 MG/3 ML NEB (SCH) NEB (03:21)
[2018-01-10] MEDS: PROPOFOL 1000 MG/100 ML INJ 100 ML IV PRN ×3 (03:23→20:37)
[2018-01-10] MEDS: FREE WATER G-TUBE SCH ×4 (04:00→12:00)
[2018-01-10 05:45] LABS: HEMATOCRIT 31.4 % (39.0-51.0); HEMOGLOBIN 9.9 GM/DL (13.0-17.0); MEAN CELL VOLUME 81.8 FL (80.0-100.0); MEAN CORPUSCULAR HEMOGLOBIN 25.8 PG (27.0-34.0); MEAN CORPUSCULAR HGB CONC 31.6 % (32.0-36.0); MEAN PLATELET VOLUME 9.8 FL (7.0-11.0); PLATELET COUNT 165 TH/MM3 (150-450); RED BLOOD COUNT 3.84 MIL/MM3 (4.50-5.90); WHITE BLOOD COUNT 7.6 TH/MM3 (4.0-11.0)
[2018-01-10] MEDS: ERYTHROMYCIN EC 250 MG TABEC PO SCH ×3 (06:00→20:37)
[2018-01-10] MEDS: METOCLOPRAMIDE HCL 10 MG/2 ML VIAL IV PUSH SCH ×3 (06:00→20:37)
[2018-01-10] MEDS: LEVOTHYROXINE SODIUM 125 MCG TAB PO SCH (06:00)
[2018-01-10 06:04] LABS: BICARBONATE 27.8 MEQ/L (21.0-32.0); CALCIUM 7.5 MG/DL (8.5-10.1); CREATININE 2.1 MG/DL (0.60-1.30); MAGNESIUM 2.2 MG/DL (1.5-2.5)
[2018-01-10 06:05] LABS: PHOSPHORUS 2.4 MG/DL (2.5-4.9)
[2018-01-10] MEDS: INSULIN ASPART SUPPLEMENTAL SCALE SQ SCH ×4 (08:00→21:00)
[2018-01-10] MEDS: INSULIN DETEMIR 100 UNITS/ML VIAL SQ SCH ×2 (09:00→21:00)
[2018-01-10] MEDS: LACTULOSE SYRUP 20 GM/30 ML CUP PO SCH ×4 (09:16→20:38)
[2018-01-10] MEDS: SERTRALINE HCL 50 MG TAB PO SCH ×2 (09:16→20:37)
[2018-01-10] MEDS: DOCUSATE SODIUM 50 MG/SENNA 8.6 MG TAB PO SCH ×2 (09:16→20:38)
[2018-01-10] MEDS: POLYETHYLENE GLYCOL 17 GM PKG PO SCH ×2 (09:16→20:38)
[2018-01-10] MEDS: AMIODARONE 200 MG TAB PO SCH (09:16)
[2018-01-10] MEDS: PANTOPRAZOLE SODIUM 40 MG VIAL IV PUSH SCH (09:16)
[2018-01-10] MEDS: POTASSIUM BICARBONATE 25 MEQ EFFERVESCENT TAB NG SCH ×2 (09:16→21:35)
[2018-01-10] MEDS: ALLOPURINOL 100 MG TAB PO SCH (09:16)
[2018-01-10] MEDS: SODIUM CHLORIDE 0.9% FLUSH 10 ML FLUSH IV FLUSH SCH ×2 (09:17→20:38)
[2018-01-10] MEDS: BETHANECHOL CHL 25 MG TAB PO SCH (09:17)
[2018-01-10] MEDS: CHLORHEXIDINE 0.12% (ORAL KIT) 15 ML CUP MT SCH ×2 (09:17→20:38)
[2018-01-10] MEDS: APIXABAN 2.5 MG TABLET PO SCH ×2 (09:17→20:37)
--- NOTE | 2018-01-10 16:22 | HHI.CCPN ---
Subjective Remarks/Hospital Course 72-year-old gentleman with multiple medical problems including morbid obesity, obstructive sleep apnea, diabetes mellitus, and chronic kidney insufficiency, underwent cardiac ablation for uncontrolled A. fib. Patient was intubated for procedure, and is transferred to ICU postprocedure for weaning of the mechanical ventilation due to increased abdominal girth. 01/01: Afebrile. Patient extremely agitated with weaning sedation. Currently on PSV trial.. Chest x-ray revealed moderate size right pleural effusion. Currently in sinus rhythm 01/02: Started on BiPAP overnight 09/09 at 50% Furosemide gtt not initiated until this AM. Will attempt to diurese. Will possibly need thoracentesis in a.m. when off apixaban 24 hours. Possible ileus on CAT scan. Started on metoclopramide 01/03: Resting comfortably in bed in no acute distress. Abdomen appears more distended today. Currently on high flow nasal cannula 35 L 70% which is off the side not in his nares satting 89%. 01/04: -1650 from NG tube overnight. Low blood sugar this a.m. noted. Will hold insulin detemir give D5 one half normal saline along with extra potassium chloride today. CT abdomen/pelvis pending. Positive BM overnight. Abdomen remains distended.. BUN and creatinine are slowly decreasing. 01/05: Another emesis today. Will likely need EGD/colonoscopy in a.m. Holding apixaban. Did not tolerate mag citrate. Abdomen remains distended without BM. SUBJECTIVE: 01/06: Status post colonoscopy today with decompression. Abdomen is less distended. Remains on nasal cannula. Looks and appears more comfortable. 01/07: PEA arrest overnight. now intubated and back in afib RVR. cardiac arrest may have been secondary to aspiration, given feculent material suctioned out of airway post-intubation. 01/08: off vasopressors. diuresing on lasix drip. large BM overnight. remains intubated. 01/09: Finally emptying his colon. Continued good diuresis but unable to wean from ventilator. 01/10: Improving gas exchange. Stop free water replacement. Continue lasix drip. Objective Vital Signs Date Time Temp Pulse Resp B/P (MAP) Pulse Ox O2 Delivery O2 Flow Rate FiO2 01/10/18 15:31 97 35 01/10/18 14:00 84 01/10/18 12:00 Mechanical Ventilator 01/10/18 12:00 98.8 10 124/77 (93) 01/06/18 23:20 15.00 Intake and Output 01/10/18 01/10/18 01/11/18 08:00 16:00 00:00 Intake Total 1000 ml Output Total 850 ml Balance 150 ml Result Diagram: 01/10/18 0515 01/10/18 0515 Imaging Last Impressions Abdomen X-Ray 01/06/18 0600 Signed Impressions: Service Date/Time: Saturday, January 06, 2018 04:38 - CONCLUSION: Persistent prominent gaseous distention of bowel throughout Lito Adkins MD Abdomen/Pelvis CT 01/04/18 0000 Signed Impressions: Service Date/Time: Thursday, January 04, 2018 10:34 - CONCLUSION: 1. Abnormal bowel gas pattern most characteristic of an ileus. There is a small amount of ascitic fluid in right paracolic gutter and pelvis. 2. Bilateral pleural effusions right greater than left with consolidation in both posterior lung bases. 3. Nasogastric tube in place with the tip in the proximal duodenum. 4. Mild diverticulosis. John Neville MD Chest X-Ray 01/03/18 0000 Signed Impressions: Service Date/Time: Wednesday, January 03, 2018 09:20 - CONCLUSION: No significant change. Bilateral parenchymal opacities remain with apparent right effusion. John Neville MD Renal Ultrasound 01/01/18 0000 Signed Impressions: Service Date/Time: December 18:16 - CONCLUSION: 1. No evidence of hydronephrosis. 2. No new or significant changes compared to the prior exam 3. 2.2 cm right renal cyst. Luiz Frey MD Objective Remarks GENERAL: 72-year-old male, intubated, sedated, critically ill. SKIN: Warm and dry. HEAD: Normocephalic. EYES: No scleral icterus. No injection or drainage. NECK: Supple, trachea midline. CARDIOVASCULAR: Tachycardic, irregular. HR in the 110s, afib. RESPIRATORY: equal chest rise. peep 5. rr 15, tv 500 prvc mode. crackles persist. GASTROINTESTINAL: Abdomen protuberant/obese/distended. Few bowel sounds present. MUSCULOSKELETAL: Trace to 1+ lower extremity edema. Well perfused. NEURO EXAM: RASS -3. sedated, intubated. A/P Assessment and Plan Assessment: 72yM s/p afib ablation now with recurrent acute hypoxic respiratory failure and s/p PEA arrest which may have been secondary to aspiration event. afib now under better control. agree with continued forced diuresis. will start weaning mechanical ventilation, but may be slow wean due to recurrent organ failure. critically ill and off pathway. Neuro/Psych: Depression/anxiety Chronic narcotic use Continue sertraline 50 mg twice daily/home medication for depression Continue pramipexole 0.5 mg p.o. daily for extrapyramidal side effects Currently holding buspirone 5 mg 3 times daily anxiety On oxycodone/acetaminophen 5/325 1 - 2 tablets every 4 hours as needed pain fentanyl, prop for goal RASS -2. sedation vacation. CV: Status post ablation for A. fib/flutter Chronic diastolic heart failure ejection fraction 45-50% 08/22 Hypertension Dyslipidemia recurrent atrial fibrillation with rapid ventricular response s/p PEA arrest 01/07 Continue amiodarone 200 mg by mouth daily Continue atorvastatin 40 mg p.o. daily for his lipidemia At home on fish oil/cholecalciferol 1200/1000 1 tablet twice daily/home medication Holding diltiazem 240 mg p.o. daily/home medication Holding ramipril 5 mg p.o. daily for hypertension with acute kidney injury dig level 01/04 is low. add additional 0.25mg dig iv x 1. Notify cardiology. Dr. Ramirez evaluated no further plans at this time aggressive replacement of electrolytes, targeting K > 4.5, Mg > 2.5 Resp: MUNA -nocturnal CPAP 8 cm H2O Moderate right pleural effusion Acute hypoxic and hypercarbic respiratory failure Extubated 01/02. reintubated 01/07 during PEA arrest wean fio2 for goal spo2 > 90% vent bundle hob elevated nebs restart forced diuresis. levalbuterol 1.25 mg NEB q6h SBTs daily. GI: Gastroesophageal reflux disease Elevated transaminases Ileus Sigmoid diverticulosis Internal/external hemorrhoids NGT to LIWS as needed. Continue pantoprazole 40 mg IV. daily for gastroesophageal disease. On omeprazole 20 mg p.o. daily at home Docusate sodium/senna 1 tablet twice daily for bowel regimen with polyethylene glycol 17 g twice daily and lactulose 30 cc 4 times daily Follow transaminases intermittently is likely congestion. Further workup and On metoclopramide 5 mg IV every 8 hours and erythromycin 250 every 8 hours KUB reveals small bowel/transverse and descending colon air filled loops CT abdomen/pelvis revealed dilated small and large bowel. Consult to GI Colonoscopy by Dr. Bella/revealed sigmoid diverticulosis. Decompression of colon. Internal and external hemorrhoids. : BPH/overflow Fowler catheter has been placed for accurate I's and O's in a critically ill patient: continue given critical illness today and forced diuresis. Continue doxazosin 4 mg daily and bethanechol 25 mg daily continue Lasix drip, replace electrolytes Endo: Diabetes mellitus Hypothyroidism Low testosterone Currently on insulin detemir 4 units twice daily with NovoLog sliding scale insulin/low regimen before meals at bedtime At home on insulin glargine 12 units twice daily with sliding scale insulin Continue levothyroxine 125 mcg p.o. daily. TSH 3.06 Holding testosterone Renal: Acute kidney injury likely secondary to cardiorenal syndrome - resolving. Renal cyst right 2.2 cm Followed by nephrology. Monitor urine output Accurate I's and O's. Renal ultrasound with no hydronephrosis. Right renal cyst 2.2 cm. Rare eosinophils urine. Heme: Chronic apixaban use Normocytic normochromic anemia Currently renally dose of 2.5 mg twice daily. Resume 4/4 a.m. Monitor CBC daily. Follow trends ID: Monitor for infection FEN: Hypokalemia Hypophosphatemia 1 g Neutra-Phos p.o. now. Recheck in a.m. Replace electrolytes as clinically indicated MSK: Osteoporosis/osteoarthritis PT evaluate and treat Access -central line placed 01/07 post cardiac arrest. - fowler. Prophylaxis -GI -pantoprazole -DVT -SCD/apixaban Overall impression: This gentleman remains critically ill following a cardiac arrest 3 days ago. He remains in fluid overload from acute on chronic diastolic heart failure. Renal function is compromised. His hemodynamics are tenuous at this point. Continue diuresis. Critical care time 38 minutes Justin Young MD Jan 10, 2018 16:22
--- NOTE | 2018-01-10 16:29 | HHI.NPPN ---
Subjective History of Present Illness 72 year old male with Chf/Atrial tachycardia/Afib admitted with Tachyarrhythmia Objective Data Data Vital Signs Date Time Temp Pulse Resp B/P (MAP) Pulse Ox O2 Delivery O2 Flow Rate FiO2 01/10/18 15:31 97 35 01/10/18 14:00 84 01/10/18 12:00 88 01/10/18 12:00 99 Mechanical Ventilator 35 01/10/18 12:00 35 01/10/18 12:00 98.8 84 10 124/77 (93) 99 01/10/18 10:00 84 01/10/18 08:58 35 01/10/18 08:58 98 35 01/10/18 08:00 82 01/10/18 08:00 35 01/10/18 08:00 99 Mechanical Ventilator 35 01/10/18 08:00 99.1 97 20 109/63 (78) 97 01/10/18 06:00 85 01/10/18 05:14 97 35 01/10/18 04:00 100 Mechanical Ventilator 35 01/10/18 04:00 94 01/10/18 04:00 98.6 94 17 120/63 (82) 96 01/10/18 04:00 35 01/10/18 02:00 93 01/10/18 00:56 97 35 01/10/18 00:00 99.1 90 19 120/58 (78) 96 01/10/18 00:00 90 01/10/18 00:00 35 01/10/18 00:00 100 Mechanical Ventilator 35 01/09/18 22:00 94 01/09/18 20:00 99.3 90 15 147/64 (91) 98 01/09/18 20:00 90 01/09/18 20:00 100 Mechanical Ventilator 35 01/09/18 20:00 35 01/09/18 19:41 96 35 01/09/18 18:00 90 -: 01/10/18 0515 01/10/18 0515 Physical Exam General Appearance: Well Developed, Well Nourished, No Acute Distress, Comfortable Neck Neck Exam: Neck Supple Pulmonary Resp Exam: No Distress, Crackles, Rhonchi, Decreased Bases, Diminished Breath Sounds Cardiology CV Exam: Arrhythmia Gastrointestinal/Abdomen GI Exam: Soft, Non-Tender, Bowel Sounds Present Extremeties Extremities Exam: Moderate Edema, Pitting Edema Neurologic Neuro Exam: Alert, Awake Assessment/Plan Problem List: (1) Acute renal failure ICD Codes: N17.9 - Acute kidney failure, unspecified Status: Acute Plan: Patient has cardiogenic shock and low blood pressure contributing, and cardiorenal syndrome Plan is to cardiovert him once he is stable on Eliquis He has underlying tachyarrhythmia Atrial fibrillation/atrial tachycardia s/p cardiac Ablation UOP good with Lasix drip Cr 2. 1 Ileus on NGT suction K replaced follow BMP Lasix drip 2.5 mg /hr (2) Chronic kidney disease, stage III (moderate) ICD Codes: N18.3 - Chronic kidney disease, stage III (moderate) Status: Acute Plan: Baseline care around 1.7 (3) Congestive heart failure ICD Codes: I50.9 - Heart failure, unspecified Status: Acute Plan: He is in cardiogenic shock low blood pressure causing the cardiorenal syndrome (4) PAF (paroxysmal atrial fibrillation) ICD Codes: I48.0 - Paroxysmal atrial fibrillation Plan: Cardiology was following (5) Diabetes ICD Codes: E11.9 - Diabetes Status: Chronic Plan: Monitor blood glucose (6) Acute on chronic systolic CHF (congestive heart failure) ICD Codes: I50.23 - Acute on chronic systolic (congestive) heart failure Problem Qualifiers (1) Congestive heart failure: Qualified Codes: I50.9 - Heart failure, unspecified Susan Solo MD Jan 10, 2018 16:29
[2018-01-10] MEDS: DOXAZOSIN MESYLATE 4 MG TAB PO SCH (20:37)
[2018-01-10] MEDS: ATORVASTATIN 40 MG TAB PO SCH (20:37)
[2018-01-10] MEDS: PRAMIPEXOLE DIHYDROCHLORIDE 0.25 MG TAB PO SCH (20:37)
[2018-01-11] VITALS (18 sets, daily range): BP systolic 109–125; BP diastolic 58–73; PULSE 73–105; RESP 10–17; TEMP 98.4–99.4; O2SAT 97–99
[2018-01-11] MEDS: PROPOFOL 1000 MG/100 ML INJ 100 ML IV PRN ×2 (03:15→23:50)
[2018-01-11] MEDS: LEVOTHYROXINE SODIUM 125 MCG TAB PO SCH (05:53)
[2018-01-11] MEDS: ERYTHROMYCIN EC 250 MG TABEC PO SCH ×3 (05:53→20:36)
[2018-01-11] MEDS: METOCLOPRAMIDE HCL 10 MG/2 ML VIAL IV PUSH SCH ×3 (05:53→20:36)
[2018-01-11 06:07] LABS: HEMATOCRIT 32.1 % (39.0-51.0); HEMOGLOBIN 10.3 GM/DL (13.0-17.0); MEAN CELL VOLUME 81.9 FL (80.0-100.0); MEAN CORPUSCULAR HEMOGLOBIN 26.2 PG (27.0-34.0); MEAN PLATELET VOLUME 9.5 FL (7.0-11.0); PLATELET COUNT 175 TH/MM3 (150-450); RED BLOOD COUNT 3.92 MIL/MM3 (4.50-5.90); RED CELL DISTRIBUTION WIDTH 21.3 % (11.6-17.2); WHITE BLOOD COUNT 7.5 TH/MM3 (4.0-11.0)
[2018-01-11] MEDS: FUROSEMIDE INJ 100 MG in SODIUM CHLORIDE 0.9% INJ 90 ML IV SCH (06:48)
[2018-01-11 08:00] LABS: BICARBONATE 29.6 MEQ/L (21.0-32.0); CALCIUM 7.8 MG/DL (8.5-10.1); CREATININE 1.81 MG/DL (0.60-1.30); MAGNESIUM 2.1 MG/DL (1.5-2.5); PHOSPHORUS 2.9 MG/DL (2.5-4.9)
[2018-01-11] MEDS: INSULIN ASPART SUPPLEMENTAL SCALE SQ SCH ×4 (08:00→21:00)
[2018-01-11] MEDS: INSULIN DETEMIR 100 UNITS/ML VIAL SQ SCH ×2 (08:04→21:00)
[2018-01-11] MEDS: POTASSIUM BICARBONATE 25 MEQ EFFERVESCENT TAB NG SCH ×2 (08:17→20:35)
[2018-01-11] MEDS: POLYETHYLENE GLYCOL 17 GM PKG PO SCH ×2 (08:17→20:37)
[2018-01-11] MEDS: CHLORHEXIDINE 0.12% (ORAL KIT) 15 ML CUP MT SCH ×2 (08:17→20:35)
[2018-01-11] MEDS: SODIUM CHLORIDE 0.9% FLUSH 10 ML FLUSH IV FLUSH SCH ×2 (08:17→20:35)
[2018-01-11] MEDS: AMIODARONE 200 MG TAB PO SCH (08:17)
[2018-01-11] MEDS: APIXABAN 2.5 MG TABLET PO SCH ×2 (08:17→20:36)
[2018-01-11] MEDS: LACTULOSE SYRUP 20 GM/30 ML CUP PO SCH ×4 (08:17→20:37)
[2018-01-11] MEDS: PANTOPRAZOLE SODIUM 40 MG VIAL IV PUSH SCH (08:17)
[2018-01-11] MEDS: SERTRALINE HCL 50 MG TAB PO SCH ×2 (08:18→20:36)
[2018-01-11] MEDS: ALLOPURINOL 100 MG TAB PO SCH (08:18)
[2018-01-11] MEDS: DOCUSATE SODIUM 50 MG/SENNA 8.6 MG TAB PO SCH ×2 (08:18→20:36)
[2018-01-11] MEDS: BETHANECHOL CHL 25 MG TAB PO SCH (08:18)
[2018-01-11] MEDS: oxyCODONE/ACETAMINOPHEN 5 MG/325 MG TAB PO PRN ×2 (08:19→22:55)
--- NOTE | 2018-01-11 12:38 | HHI.NPPN ---
Subjective History of Present Illness 72 year old male with Chf/Atrial tachycardia/Afib admitted with Tachyarrhythmia Objective Data Data Vital Signs Date Time Temp Pulse Resp B/P (MAP) Pulse Ox O2 Delivery O2 Flow Rate FiO2 01/11/18 11:53 98 35 01/11/18 10:00 83 01/11/18 08:00 35 01/11/18 08:00 89 01/11/18 08:00 98 Mechanical Ventilator 35 01/11/18 08:00 98.8 90 16 116/73 (87) 98 01/11/18 07:48 35 01/11/18 07:39 97 35 01/11/18 06:00 75 01/11/18 04:00 74 01/11/18 04:00 35 01/11/18 04:00 99.0 74 15 109/58 (75) 98 01/11/18 04:00 98 Mechanical Ventilator 35 01/11/18 03:16 98 35 01/11/18 02:00 73 01/11/18 00:00 99.4 86 16 123/66 (85) 98 01/11/18 00:00 86 01/11/18 00:00 35 01/11/18 00:00 98 Mechanical Ventilator 35 01/10/18 23:45 98 35 01/10/18 22:00 74 01/10/18 20:00 99 Mechanical Ventilator 35 01/10/18 20:00 84 01/10/18 20:00 35 01/10/18 20:00 99.1 84 17 118/68 (85) 98 01/10/18 19:35 98 35 01/10/18 18:00 73 01/10/18 16:00 35 01/10/18 16:00 98.9 76 15 113/63 (80) 98 01/10/18 16:00 99 Mechanical Ventilator 35 01/10/18 16:00 74 01/10/18 15:31 97 35 01/10/18 14:00 84 -: 01/11/18 0445 01/11/18 0445 Physical Exam General Appearance: Well Developed, Well Nourished, No Acute Distress, Comfortable Neck Neck Exam: Neck Supple Pulmonary Resp Exam: No Distress, Crackles, Rhonchi, Decreased Bases, Diminished Breath Sounds Cardiology CV Exam: Arrhythmia Gastrointestinal/Abdomen GI Exam: Soft, Non-Tender, Bowel Sounds Present Extremeties Extremities Exam: Moderate Edema, Pitting Edema Neurologic Neuro Exam: Alert, Awake Assessment/Plan Problem List: (1) Acute renal failure ICD Codes: N17.9 - Acute kidney failure, unspecified Status: Acute Plan: Patient has cardiogenic shock and low blood pressure contributing, and cardiorenal syndrome Plan is to cardiovert him once he is stable on Eliquis He has underlying tachyarrhythmia Atrial fibrillation/atrial tachycardia s/p cardiac Ablation UOP good with Lasix drip Cr 1.8 Ileus on NGT suction K replaced follow BMP Lasix drip 2.5 mg /hr (2) Chronic kidney disease, stage III (moderate) ICD Codes: N18.3 - Chronic kidney disease, stage III (moderate) Status: Acute Plan: Baseline care around 1.7 (3) Congestive heart failure ICD Codes: I50.9 - Heart failure, unspecified Status: Acute Plan: He is in cardiogenic shock low blood pressure causing the cardiorenal syndrome (4) PAF (paroxysmal atrial fibrillation) ICD Codes: I48.0 - Paroxysmal atrial fibrillation Plan: Cardiology was following (5) Diabetes ICD Codes: E11.9 - Diabetes Status: Chronic Plan: Monitor blood glucose (6) Acute on chronic systolic CHF (congestive heart failure) ICD Codes: I50.23 - Acute on chronic systolic (congestive) heart failure Problem Qualifiers (1) Congestive heart failure: Qualified Codes: I50.9 - Heart failure, unspecified Susan Solo MD Jan 11, 2018 12:38
--- NOTE | 2018-01-11 17:05 | HHI.CCPN ---
Subjective Remarks/Hospital Course 72-year-old gentleman with multiple medical problems including morbid obesity, obstructive sleep apnea, diabetes mellitus, and chronic kidney insufficiency, underwent cardiac ablation for uncontrolled A. fib. Patient was intubated for procedure, and is transferred to ICU postprocedure for weaning of the mechanical ventilation due to increased abdominal girth. 01/01: Afebrile. Patient extremely agitated with weaning sedation. Currently on PSV trial.. Chest x-ray revealed moderate size right pleural effusion. Currently in sinus rhythm 01/02: Started on BiPAP overnight 09/09 at 50% Furosemide gtt not initiated until this AM. Will attempt to diurese. Will possibly need thoracentesis in a.m. when off apixaban 24 hours. Possible ileus on CAT scan. Started on metoclopramide 01/03: Resting comfortably in bed in no acute distress. Abdomen appears more distended today. Currently on high flow nasal cannula 35 L 70% which is off the side not in his nares satting 89%. 01/04: -1650 from NG tube overnight. Low blood sugar this a.m. noted. Will hold insulin detemir give D5 one half normal saline along with extra potassium chloride today. CT abdomen/pelvis pending. Positive BM overnight. Abdomen remains distended.. BUN and creatinine are slowly decreasing. 01/05: Another emesis today. Will likely need EGD/colonoscopy in a.m. Holding apixaban. Did not tolerate mag citrate. Abdomen remains distended without BM. SUBJECTIVE: 01/06: Status post colonoscopy today with decompression. Abdomen is less distended. Remains on nasal cannula. Looks and appears more comfortable. 01/07: PEA arrest overnight. now intubated and back in afib RVR. cardiac arrest may have been secondary to aspiration, given feculent material suctioned out of airway post-intubation. 01/08: off vasopressors. diuresing on lasix drip. large BM overnight. remains intubated. 01/09: Finally emptying his colon. Continued good diuresis but unable to wean from ventilator. 01/10: Improving gas exchange. Stop free water replacement. Continue lasix drip. 01/11: Steady improvement in gas exchange. Tolerating SBTs better. Continue lasix gtt, replete lytes. Objective Vital Signs Date Time Temp Pulse Resp B/P (MAP) Pulse Ox O2 Delivery O2 Flow Rate FiO2 4/8/18 16:13 99 35 01/11/18 14:00 83 01/11/18 12:00 98.7 10 121/68 (85) 01/11/18 08:00 Mechanical Ventilator Intake and Output 01/11/18 01/11/18 01/12/18 08:00 16:00 00:00 Intake Total 300 ml Output Total 1800 ml Balance -1500 ml Result Diagram: 01/11/18 0445 01/11/18 0445 Imaging Last Impressions Abdomen X-Ray 01/06/18 0600 Signed Impressions: Service Date/Time: Saturday, January 06, 2018 04:38 - CONCLUSION: Persistent prominent gaseous distention of bowel throughout Lito Adkins MD Abdomen/Pelvis CT 01/04/18 0000 Signed Impressions: Service Date/Time: Thursday, January 04, 2018 10:34 - CONCLUSION: 1. Abnormal bowel gas pattern most characteristic of an ileus. There is a small amount of ascitic fluid in right paracolic gutter and pelvis. 2. Bilateral pleural effusions right greater than left with consolidation in both posterior lung bases. 3. Nasogastric tube in place with the tip in the proximal duodenum. 4. Mild diverticulosis. John Neville MD Chest X-Ray 01/03/18 0000 Signed Impressions: Service Date/Time: Wednesday, January 03, 2018 09:20 - CONCLUSION: No significant change. Bilateral parenchymal opacities remain with apparent right effusion. John Neville MD Renal Ultrasound 01/01/18 0000 Signed Impressions: Service Date/Time: December 18:16 - CONCLUSION: 1. No evidence of hydronephrosis. 2. No new or significant changes compared to the prior exam 3. 2.2 cm right renal cyst. Luiz Frey MD Objective Remarks GENERAL: 72-year-old male, intubated, sedated, critically ill. SKIN: Warm and dry. HEAD: Normocephalic. EYES: No scleral icterus. No injection or drainage. NECK: Supple, trachea midline. CARDIOVASCULAR: Tachycardic, irregular. HR in the 120s, afib. RESPIRATORY: equal chest rise. few crackle persist, good sameer air movement. GASTROINTESTINAL: Abdomen protuberant/obese/distended. Few bowel sounds present. No guarding. MUSCULOSKELETAL: Trace to 1+ lower extremity edema. Well perfused. NEURO EXAM: RASS -2. sedated, intubated. Moves 4 limbs to stimulation. A/P Assessment and Plan Assessment: 72yM s/p afib ablation now with recurrent acute hypoxic respiratory failure and s/p PEA arrest which may have been secondary to aspiration event. afib now under better control. agree with continued forced diuresis. will start weaning mechanical ventilation, but may be slow wean due to recurrent organ failure. critically ill and off pathway. Neuro/Psych: Depression/anxiety Chronic narcotic use Continue sertraline 50 mg twice daily/home medication for depression Continue pramipexole 0.5 mg p.o. daily for extrapyramidal side effects Currently holding buspirone 5 mg 3 times daily anxiety On oxycodone/acetaminophen 5/325 1 - 2 tablets every 4 hours as needed pain fentanyl, prop for goal RASS -2. sedation vacation. CV: Status post ablation for A. fib/flutter Chronic diastolic heart failure ejection fraction 45-50% 08/22 Hypertension Dyslipidemia recurrent atrial fibrillation with rapid ventricular response s/p PEA arrest 01/07 Continue amiodarone 200 mg by mouth daily Continue atorvastatin 40 mg p.o. daily for his lipidemia At home on fish oil/cholecalciferol 1200/1000 1 tablet twice daily/home medication Holding diltiazem 240 mg p.o. daily/home medication Holding ramipril 5 mg p.o. daily for hypertension with acute kidney injury dig level / is low. add additional 0.25mg dig iv x 1. Notify cardiology. Dr. Ramirez evaluated no further plans at this time aggressive replacement of electrolytes, targeting K > 4.5, Mg > 2.5 Resp: MUNA -nocturnal CPAP 8 cm H2O Moderate right pleural effusion Acute hypoxic and hypercarbic respiratory failure Extubated 01/02. reintubated 01/07 during PEA arrest wean fio2 for goal spo2 > 90% vent bundle hob elevated nebs restart forced diuresis. levalbuterol 1.25 mg NEB q6h SBTs daily. GI: Gastroesophageal reflux disease Elevated transaminases Ileus Sigmoid diverticulosis Internal/external hemorrhoids NGT to LIWS as needed. Continue pantoprazole 40 mg IV. daily for gastroesophageal disease. On omeprazole 20 mg p.o. daily at home Docusate sodium/senna 1 tablet twice daily for bowel regimen with polyethylene glycol 17 g twice daily and lactulose 30 cc 4 times daily Follow transaminases intermittently is likely congestion. Further workup and On metoclopramide 5 mg IV every 8 hours and erythromycin 250 every 8 hours KUB reveals small bowel/transverse and descending colon air filled loops CT abdomen/pelvis revealed dilated small and large bowel. Consult to GI Colonoscopy by Dr. Bella/revealed sigmoid diverticulosis. Decompression of colon. Internal and external hemorrhoids. : BPH/overflow Fowler catheter has been placed for accurate I's and O's in a critically ill patient: continue given critical illness today and forced diuresis. Continue doxazosin 4 mg daily and bethanechol 25 mg daily continue Lasix drip, replace electrolytes Endo: Diabetes mellitus Hypothyroidism Low testosterone Currently on insulin detemir 4 units twice daily with NovoLog sliding scale insulin/low regimen before meals at bedtime At home on insulin glargine 12 units twice daily with sliding scale insulin Continue levothyroxine 125 mcg p.o. daily. TSH 3.06 Holding testosterone Renal: Acute kidney injury likely secondary to cardiorenal syndrome - resolving. Renal cyst right 2.2 cm Followed by nephrology. Monitor urine output Accurate I's and O's. Renal ultrasound with no hydronephrosis. Right renal cyst 2.2 cm. Rare eosinophils urine. Heme: Chronic apixaban use Normocytic normochromic anemia Currently renally dose of 2.5 mg twice daily. Resume 4/4 a.m. Monitor CBC daily. Follow trends ID: Monitor for infection FEN: Hypokalemia Hypophosphatemia 1 g Neutra-Phos p.o. now. Recheck in a.m. Replace electrolytes as clinically indicated MSK: Osteoporosis/osteoarthritis PT evaluate and treat Access -central line placed /4 post cardiac arrest. - fowler. Prophylaxis -GI -pantoprazole -DVT -SCD/apixaban Overall impression: This gentleman remains critically ill following a cardiac arrest 4 days ago. He remains in fluid overload from acute on chronic diastolic heart failure. Renal function is compromised. His hemodynamics are tenuous at this point. Continue diuresis. Watch lytes closely. Critical care time 34 minutes Justin Young MD Jan 11, 2018 17:05
[2018-01-11] MEDS: DOXAZOSIN MESYLATE 4 MG TAB PO SCH (20:36)
[2018-01-11] MEDS: ATORVASTATIN 40 MG TAB PO SCH (20:36)
[2018-01-11] MEDS: PRAMIPEXOLE DIHYDROCHLORIDE 0.25 MG TAB PO SCH (20:36)
[2018-01-12] VITALS (17 sets, daily range): BP systolic 109–155; BP diastolic 60–79; PULSE 96–112; RESP 14–24; TEMP 98.3–99.1; O2SAT 92–99
[2018-01-12 05:38] LABS: HEMATOCRIT 33.9 % (39.0-51.0); HEMOGLOBIN 10.5 GM/DL (13.0-17.0); MEAN CELL VOLUME 83.1 FL (80.0-100.0); MEAN CORPUSCULAR HEMOGLOBIN 25.7 PG (27.0-34.0); MEAN CORPUSCULAR HGB CONC 30.9 % (32.0-36.0); MEAN PLATELET VOLUME 9.2 FL (7.0-11.0); PLATELET COUNT 206 TH/MM3 (150-450); RED BLOOD COUNT 4.08 MIL/MM3 (4.50-5.90); RED CELL DISTRIBUTION WIDTH 20.9 % (11.6-17.2); WHITE BLOOD COUNT 7.5 TH/MM3 (4.0-11.0)
[2018-01-12 06:01] LABS: BICARBONATE 31.2 MEQ/L (21.0-32.0); CALCIUM 8.2 MG/DL (8.5-10.1); CREATININE 1.62 MG/DL (0.60-1.30); MAGNESIUM 1.9 MG/DL (1.5-2.5); PHOSPHORUS 2.7 MG/DL (2.5-4.9)
[2018-01-12] MEDS: ERYTHROMYCIN EC 250 MG TABEC PO SCH ×3 (06:23→22:00)
[2018-01-12] MEDS: LEVOTHYROXINE SODIUM 125 MCG TAB PO SCH (06:23)
[2018-01-12] MEDS: METOCLOPRAMIDE HCL 10 MG/2 ML VIAL IV PUSH SCH ×3 (06:24→23:27)
[2018-01-12] MEDS: INSULIN ASPART SUPPLEMENTAL SCALE SQ SCH ×4 (08:00→23:22)
[2018-01-12] MEDS: CHLORHEXIDINE 0.12% (ORAL KIT) 15 ML CUP MT SCH ×2 (08:34→20:45)
[2018-01-12] MEDS: SODIUM CHLORIDE 0.9% FLUSH 10 ML FLUSH IV FLUSH SCH ×2 (08:35→20:45)
[2018-01-12] MEDS: POTASSIUM BICARBONATE 25 MEQ EFFERVESCENT TAB NG SCH ×2 (08:35→21:00)
[2018-01-12] MEDS: PANTOPRAZOLE SODIUM 40 MG VIAL IV PUSH SCH (08:36)
[2018-01-12] MEDS: BETHANECHOL CHL 25 MG TAB PO SCH (08:36)
[2018-01-12] MEDS: POLYETHYLENE GLYCOL 17 GM PKG PO SCH ×2 (08:36→21:00)
[2018-01-12] MEDS: ALLOPURINOL 100 MG TAB PO SCH (08:36)
[2018-01-12] MEDS: DOCUSATE SODIUM 50 MG/SENNA 8.6 MG TAB PO SCH ×2 (08:36→21:00)
[2018-01-12] MEDS: APIXABAN 2.5 MG TABLET PO SCH (08:36)
[2018-01-12] MEDS: AMIODARONE 200 MG TAB PO SCH (08:36)
[2018-01-12] MEDS: LACTULOSE SYRUP 20 GM/30 ML CUP PO SCH ×4 (08:36→21:00)
[2018-01-12] MEDS: SERTRALINE HCL 50 MG TAB PO SCH ×2 (08:36→21:00)
[2018-01-12] MEDS: INSULIN DETEMIR 100 UNITS/ML VIAL SQ SCH ×2 (08:37→23:22)
--- NOTE | 2018-01-12 10:34 | RADRPT ---
EXAM DATE/TIME: 01/12/2018 10:10 [facility] COMPARISON: CHEST SINGLE AP, January 07, 2018, 4:26. INDICATIONS : Evaluate for pulmonary disease. MEDICAL HISTORY : Cardiovascular disease. Cerebrovascular disease. Hypertension. GERD, Diabetes SURGICAL HISTORY : Cholecystectomy. ENCOUNTER: Initial ACUITY: 1 week PAIN SCORE: Non-responsive. LOCATION: Bilateral chest FINDINGS: Stable ETT, NGT, and right subclavian central line. Cardiac silhouette is enlarged with mild diffuse interstitial prominence. Improved aeration of the lower lung zones bilaterally. Remainder of the exam is unchanged. CONCLUSION: 1. Stable tubes and lines. 2. Cardiomegaly with mild positive fluid balance. 3. Improved aeration of the lower lung zones bilaterally. Rosales Fisher MD on January 12, 2018 at 10:29 Board Certified Radiologist. This report was verified electronically.
--- NOTE | 2018-01-12 10:38 | HHI.CCPN ---
Subjective Remarks/Hospital Course 72-year-old gentleman with multiple medical problems including morbid obesity, obstructive sleep apnea, diabetes mellitus, and chronic kidney insufficiency, underwent cardiac ablation for uncontrolled A. fib. Patient was intubated for procedure, and is transferred to ICU postprocedure for weaning of the mechanical ventilation due to increased abdominal girth. 01/01: Afebrile. Patient extremely agitated with weaning sedation. Currently on PSV trial.. Chest x-ray revealed moderate size right pleural effusion. Currently in sinus rhythm 01/02: Started on BiPAP overnight 09/09 at 50% Furosemide gtt not initiated until this AM. Will attempt to diurese. Will possibly need thoracentesis in a.m. when off apixaban 24 hours. Possible ileus on CAT scan. Started on metoclopramide 01/03: Resting comfortably in bed in no acute distress. Abdomen appears more distended today. Currently on high flow nasal cannula 35 L 70% which is off the side not in his nares satting 89%. 01/04: -1650 from NG tube overnight. Low blood sugar this a.m. noted. Will hold insulin detemir give D5 one half normal saline along with extra potassium chloride today. CT abdomen/pelvis pending. Positive BM overnight. Abdomen remains distended.. BUN and creatinine are slowly decreasing. 01/05: Another emesis today. Will likely need EGD/colonoscopy in a.m. Holding apixaban. Did not tolerate mag citrate. Abdomen remains distended without BM. SUBJECTIVE: 01/06: Status post colonoscopy today with decompression. Abdomen is less distended. Remains on nasal cannula. Looks and appears more comfortable. 01/07: PEA arrest overnight. now intubated and back in afib RVR. cardiac arrest may have been secondary to aspiration, given feculent material suctioned out of airway post-intubation. 01/08: off vasopressors. diuresing on lasix drip. large BM overnight. remains intubated. 01/09: Finally emptying his colon. Continued good diuresis but unable to wean from ventilator. 01/10: Improving gas exchange. Stop free water replacement. Continue lasix drip. 01/11: Steady improvement in gas exchange. Tolerating SBTs better. Continue Lasix gtt, replete lytes. 01/12: Sedation is on hold. Opens eyes follows commands but weakly remains lethargic. Tolerating CPAP. UO 1.7L in 24 hours, creat improving Objective Vital Signs Date Time Temp Pulse Resp B/P (MAP) Pulse Ox O2 Delivery O2 Flow Rate FiO2 01/12/18 07:45 99 30 01/12/18 06:00 106 01/12/18 04:00 98.6 15 109/65 (80) 01/11/18 20:00 Mechanical Ventilator Intake and Output 01/12/18 01/12/18 01/13/18 08:00 16:00 00:00 Intake Total 100 ml Output Total 800 ml Balance -700 ml Result Diagram: 01/12/18 0500 01/12/18 0500 Imaging Last Impressions Abdomen X-Ray 01/06/18 0600 Signed Impressions: Service Date/Time: Saturday, January 06, 2018 04:38 - CONCLUSION: Persistent prominent gaseous distention of bowel throughout Lito Adkins MD Abdomen/Pelvis CT 01/04/18 0000 Signed Impressions: Service Date/Time: Thursday, January 04, 2018 10:34 - CONCLUSION: 1. Abnormal bowel gas pattern most characteristic of an ileus. There is a small amount of ascitic fluid in right paracolic gutter and pelvis. 2. Bilateral pleural effusions right greater than left with consolidation in both posterior lung bases. 3. Nasogastric tube in place with the tip in the proximal duodenum. 4. Mild diverticulosis. John Neville MD Chest X-Ray 01/03/18 0000 Signed Impressions: Service Date/Time: Wednesday, January 03, 2018 09:20 - CONCLUSION: No significant change. Bilateral parenchymal opacities remain with apparent right effusion. John Neville MD Renal Ultrasound 01/01/18 0000 Signed Impressions: Service Date/Time: December 18:16 - CONCLUSION: 1. No evidence of hydronephrosis. 2. No new or significant changes compared to the prior exam 3. 2.2 cm right renal cyst. Liuz Frey MD Objective Remarks GENERAL: 72-year-old male, intubated, off sedation SKIN: Warm and dry. HEAD: Normocephalic. EYES: No scleral icterus. No injection or drainage. NECK: Supple, trachea midline. CARDIOVASCULAR: Tachycardic, irregular. HR in 100s, afib. RESPIRATORY: equal chest rise. few crackle persist, good sameer air movement. Thick ET tube secretions GASTROINTESTINAL: Abdomen protuberant/obese/distended. Few bowel sounds present. No guarding. MUSCULOSKELETAL: Trace to 1+ lower extremity edema. Well perfused. NEURO: RASS -1. Off sedation. Moves 4 limbs to stimulation. Follows commands but weakly A/P Assessment and Plan Assessment: 72yM s/p afib ablation now with recurrent acute hypoxic respiratory failure and s/p PEA arrest which may have been secondary to aspiration event. afib now under better control. agree with continued forced diuresis. will start weaning mechanical ventilation, but may be slow wean due to recurrent organ failure. critically ill and off pathway. Neuro/Psych: Depression/anxiety Chronic narcotic use Continue sertraline 50 mg twice daily/home medication for depression Continue pramipexole 0.5 mg p.o. daily for extrapyramidal side effects Currently holding buspirone 5 mg 3 times daily anxiety On oxycodone/acetaminophen 5/325 1 - 2 tablets every 4 hours as needed pain Fentanyl, prop for goal RASS -2. Daily sedation vacation. CV: Status post ablation for A. fib/flutter Chronic diastolic heart failure ejection fraction 45-50% 08/22 recurrent atrial fibrillation with rapid ventricular response s/p PEA arrest 01/07 Hypertension Dyslipidemia Continue amiodarone 200 mg by mouth daily Continue atorvastatin 40 mg p.o. daily for his lipidemia At home on fish oil/cholecalciferol 1200/1000 1 tablet twice daily/home medication Holding diltiazem 240 mg p.o. daily/home medication Holding ramipril 5 mg p.o. daily for hypertension with acute kidney injury dig level 01/04 is low. add additional 0.25mg dig iv x 1. Dr. Ramirez evaluated no further plans at this time aggressive replacement of electrolytes, targeting K > 4.5, Mg > 2.5 Continue Lasix GTT Resp: Acute hypoxic and hypercarbic respiratory failure MUNA -nocturnal CPAP 8 cm H2O Moderate right pleural effusion Extubated 01/02. reintubated 01/07 during PEA arrest wean fio2 for goal spo2 > 90% vent bundle, hob elevated, nebs Forced diuresis. levalbuterol 1.25 mg NEB q6h SBTs daily. GI: Gastroesophageal reflux disease Elevated transaminases Ileus Sigmoid diverticulosis Internal/external hemorrhoids Continue pantoprazole 40 mg IV. daily for gastroesophageal disease. On omeprazole 20 mg p.o. daily at home Docusate sodium/senna 1 tablet twice daily for bowel regimen with polyethylene glycol 17 g twice daily and lactulose 30 cc 4 times daily Follow transaminases intermittently is likely congestion. Further workup and On metoclopramide 5 mg IV every 8 hours and erythromycin 250 every 8 hours KUB reveals small bowel/transverse and descending colon air filled loops CT abdomen/pelvis revealed dilated small and large bowel. Colonoscopy by Dr. Bella/revealed sigmoid diverticulosis. Decompression of colon. Internal and external hemorrhoids. : BPH/overflow Andrade catheter has been placed for accurate I's and O's in a critically ill patient: continue given critical illness and forced diuresis. Continue doxazosin 4 mg daily and bethanechol 25 mg daily continue Lasix drip, replace electrolytes Endo: Diabetes mellitus Hypothyroidism Low testosterone Currently on insulin detemir 4 units twice daily with NovoLog sliding scale insulin/low regimen before meals at bedtime At home on insulin glargine 12 units twice daily with sliding scale insulin Continue levothyroxine 125 mcg p.o. daily. TSH 3.06 Holding testosterone Renal: Acute kidney injury likely secondary to cardiorenal syndrome - improving. Renal cyst right 2.2 cm Followed by nephrology. Monitor urine output Accurate I's and O's. Renal ultrasound with no hydronephrosis. Right renal cyst 2.2 cm. Rare eosinophils urine. Heme: Chronic apixaban use Normocytic normochromic anemia Currently renally dose of 2.5 mg twice daily. Resumed 01/07 a.m. Monitor CBC daily. Follow trends ID: Monitor for infection Check sputum culture FEN: Hypokalemia Hypophosphatemia 1 g Neutra-Phos p.o. now. Recheck in a.m. Replace electrolytes as clinically indicated MSK: Osteoporosis/osteoarthritis PT evaluate and treat Access -central line placed 01/07 post cardiac arrest. - Andrade. Prophylaxis -GI -pantoprazole -DVT -SCD/apixaban Overall impression: This gentleman remains critically ill following a cardiac arrest 4 days ago. He remains in fluid overload from acute on chronic diastolic heart failure. Renal function is compromised. His hemodynamics are tenuous at this point. Continue diuresis. Watch lytes closely. Level 3 Tonia Morse MD Jan 12, 2018 10:38
--- NOTE | 2018-01-12 15:04 | HHI.NPPN ---
Subjective History of Present Illness 72 year old male with Chf/Atrial tachycardia/Afib admitted with Tachyarrhythmia Objective Data Data Vital Signs Date Time Temp Pulse Resp B/P (MAP) Pulse Ox O2 Delivery O2 Flow Rate FiO2 01/12/18 11:54 97 Nasal Cannula 4.00 01/12/18 11:50 97 Nasal Cannula 4 01/12/18 08:00 97 Mechanical Ventilator 30 01/12/18 08:00 98.7 108 23 155/79 (104) 97 01/12/18 08:00 108 01/12/18 08:00 30 01/12/18 07:45 99 30 01/12/18 06:00 106 01/12/18 04:00 104 01/12/18 04:00 98.6 104 15 109/65 (80) 99 01/12/18 04:00 35 01/12/18 03:39 98 35 01/12/18 02:00 100 01/12/18 00:00 35 01/12/18 00:00 96 01/12/18 00:00 99.1 96 14 114/66 (82) 97 01/11/18 23:58 98 35 01/11/18 22:00 105 01/11/18 20:00 98.4 96 17 122/73 (89) 98 01/11/18 20:00 98 Mechanical Ventilator 35 01/11/18 20:00 96 01/11/18 20:00 35 01/11/18 19:16 99 35 01/11/18 18:00 90 01/11/18 16:13 99 35 01/11/18 16:00 35 01/11/18 16:00 84 01/11/18 16:00 98.7 84 14 125/69 (87) 98 -: 01/12/18 0500 01/12/18 0500 Microbiology 01/12/18 Gram Stain, Received Pending 01/12/18 Sputum Culture, Received Pending Physical Exam General Appearance: Well Developed, Well Nourished, No Acute Distress, Comfortable Neck Neck Exam: Neck Supple Pulmonary Resp Exam: No Distress, Crackles, Rhonchi, Decreased Bases, Diminished Breath Sounds Cardiology CV Exam: Arrhythmia Gastrointestinal/Abdomen GI Exam: Soft, Non-Tender, Bowel Sounds Present Extremeties Extremities Exam: Moderate Edema, Pitting Edema Neurologic Neuro Exam: Alert, Awake Assessment/Plan Problem List: (1) Acute renal failure ICD Codes: N17.9 - Acute kidney failure, unspecified Status: Acute Plan: Patient has cardiogenic shock and low blood pressure contributing, and cardiorenal syndrome Plan is to cardiovert him once he is stable on Eliquis He has underlying tachyarrhythmia Atrial fibrillation/atrial tachycardia s/p cardiac Ablation UOP good with Lasix drip Cr 1 1.6 Extubated K replaced follow BMP Lasix drip will be discontinued Use intermittently if needed (2) Chronic kidney disease, stage III (moderate) ICD Codes: N18.3 - Chronic kidney disease, stage III (moderate) Status: Acute Plan: Baseline care around 1.7 (3) Congestive heart failure ICD Codes: I50.9 - Heart failure, unspecified Status: Acute Plan: He is in cardiogenic shock low blood pressure causing the cardiorenal syndrome (4) PAF (paroxysmal atrial fibrillation) ICD Codes: I48.0 - Paroxysmal atrial fibrillation Plan: Cardiology was following (5) Diabetes ICD Codes: E11.9 - Diabetes Status: Chronic Plan: Monitor blood glucose (6) Acute on chronic systolic CHF (congestive heart failure) ICD Codes: I50.23 - Acute on chronic systolic (congestive) heart failure Problem Qualifiers (1) Congestive heart failure: Qualified Codes: I50.9 - Heart failure, unspecified Susan Solo MD Jan 12, 2018 15:04
[2018-01-12] MEDS: ATORVASTATIN 40 MG TAB PO SCH (21:00)
[2018-01-12] MEDS: PRAMIPEXOLE DIHYDROCHLORIDE 0.25 MG TAB PO SCH (21:00)
[2018-01-12] MEDS: DOXAZOSIN MESYLATE 4 MG TAB PO SCH (21:00)
[2018-01-13] VITALS (14 sets, daily range): BP systolic 108–127; BP diastolic 58–79; PULSE 86–115; RESP 16–24; TEMP 97.9–98.4; O2SAT 93–100
[2018-01-13 04:07] LABS: HEMATOCRIT 32.6 % (39.0-51.0); HEMOGLOBIN 10.2 GM/DL (13.0-17.0); MEAN CELL VOLUME 81.7 FL (80.0-100.0); MEAN CORPUSCULAR HEMOGLOBIN 25.6 PG (27.0-34.0); MEAN CORPUSCULAR HGB CONC 31.3 % (32.0-36.0); PLATELET COUNT 245 TH/MM3 (150-450); RED BLOOD COUNT 3.99 MIL/MM3 (4.50-5.90); RED CELL DISTRIBUTION WIDTH 20.8 % (11.6-17.2)
[2018-01-13 04:35] LABS: BICARBONATE 33.8 MEQ/L (21.0-32.0); CALCIUM 8.4 MG/DL (8.5-10.1); CREATININE 1.59 MG/DL (0.60-1.30)
[2018-01-13] MEDS: ERYTHROMYCIN EC 250 MG TABEC PO SCH ×3 (04:58→21:02)
[2018-01-13] MEDS: LEVOTHYROXINE SODIUM 125 MCG TAB PO SCH (04:59)
[2018-01-13] MEDS: METOCLOPRAMIDE HCL 10 MG/2 ML VIAL IV PUSH SCH ×3 (05:40→22:40)
[2018-01-13] MEDS: CHLORHEXIDINE 0.12% (ORAL KIT) 15 ML CUP MT SCH ×2 (08:00→20:34)
[2018-01-13] MEDS: INSULIN ASPART SUPPLEMENTAL SCALE SQ SCH ×4 (08:00→22:39)
[2018-01-13] MEDS: SODIUM CHLORIDE 0.9% FLUSH 10 ML FLUSH IV FLUSH SCH ×2 (08:59→20:34)
[2018-01-13] MEDS: PANTOPRAZOLE SODIUM 40 MG VIAL IV PUSH SCH (08:59)
[2018-01-13] MEDS: LACTULOSE SYRUP 20 GM/30 ML CUP PO SCH ×5 (09:00→20:35)
[2018-01-13] MEDS: POLYETHYLENE GLYCOL 17 GM PKG PO SCH ×3 (09:00→20:35)
[2018-01-13] MEDS: DOCUSATE SODIUM 50 MG/SENNA 8.6 MG TAB PO SCH ×2 (09:00→20:38)
[2018-01-13] MEDS: INSULIN DETEMIR 100 UNITS/ML VIAL SQ SCH ×2 (09:00→20:39)
[2018-01-13] MEDS: AMIODARONE 200 MG TAB PO SCH (09:59)
[2018-01-13] MEDS: BETHANECHOL CHL 25 MG TAB PO SCH (09:59)
[2018-01-13] MEDS: SERTRALINE HCL 50 MG TAB PO SCH ×2 (09:59→20:34)
[2018-01-13] MEDS: ALLOPURINOL 100 MG TAB PO SCH (09:59)
[2018-01-13] MEDS: APIXABAN 2.5 MG TABLET PO SCH ×2 (09:59→20:35)
[2018-01-13] MEDS: POTASSIUM BICARBONATE 25 MEQ EFFERVESCENT TAB NG SCH ×2 (09:59→20:38)
[2018-01-13] MEDS ORDERED: POTASSIUM PHOSPHATE MONOBASIC 500 MG TAB PO/TUBE PRN (12:00)
[2018-01-13] MEDS ORDERED: POTASSIUM CHLORIDE 25 MEQ EFFERVESCENT TAB PO PRN (12:00)
[2018-01-13] MEDS ORDERED: POTASSIUM PHOSPHATE INJ 30 MMOL in SODIUM CHLOR 0.9% 250 ML INJ 250 ML IV PRN (12:00)
[2018-01-13] MEDS ORDERED: SODIUM PHOSPHATE INJ 30 MMOL in SODIUM CHLOR 0.9% 250 ML INJ 240 ML IV PRN (12:00)
[2018-01-13] MEDS ORDERED: MAGNESIUM OXIDE 400 MG TAB PO PRN (12:00)
[2018-01-13] MEDS ORDERED: MAGNESIUM SULFATE INJ 2 GM in SODIUM CHLORIDE 0.9% INJ 96 ML IV PRN (12:00)
[2018-01-13] MEDS ORDERED: MAGNESIUM SULFATE INJ 4 GM in SODIUM CHLORIDE 0.9% INJ 92 ML IV PRN (12:00)
[2018-01-13] MEDS ORDERED: POTASSIUM PHOSPHATE MONOBASIC 500 MG TAB PO PRN (12:00)
[2018-01-13] MEDS ORDERED: POTASSIUM CHLOR 40 MEQ PREMIX 100 ML IV PRN ×2 (12:00)
[2018-01-13] MEDS ORDERED: POTASSIUM CHLOR 20 MEQ PREMIX 100 ML IV PRN ×2 (12:00)
--- NOTE | 2018-01-13 12:14 | HHI.CCPN ---
Subjective Remarks/Hospital Course 72-year-old gentleman with multiple medical problems including morbid obesity, obstructive sleep apnea, diabetes mellitus, and chronic kidney insufficiency, underwent cardiac ablation for uncontrolled A. fib. Patient was intubated for procedure, and is transferred to ICU postprocedure for weaning of the mechanical ventilation due to increased abdominal girth. 01/01: Afebrile. Patient extremely agitated with weaning sedation. Currently on PSV trial.. Chest x-ray revealed moderate size right pleural effusion. Currently in sinus rhythm 01/02: Started on BiPAP overnight 09/09 at 50% Furosemide gtt not initiated until this AM. Will attempt to diurese. Will possibly need thoracentesis in a.m. when off apixaban 24 hours. Possible ileus on CAT scan. Started on metoclopramide 01/03: Resting comfortably in bed in no acute distress. Abdomen appears more distended today. Currently on high flow nasal cannula 35 L 70% which is off the side not in his nares satting 89%. 01/04: -1650 from NG tube overnight. Low blood sugar this a.m. noted. Will hold insulin detemir give D5 one half normal saline along with extra potassium chloride today. CT abdomen/pelvis pending. Positive BM overnight. Abdomen remains distended.. BUN and creatinine are slowly decreasing. 01/05: Another emesis today. Will likely need EGD/colonoscopy in a.m. Holding apixaban. Did not tolerate mag citrate. Abdomen remains distended without BM. SUBJECTIVE: 01/06: Status post colonoscopy today with decompression. Abdomen is less distended. Remains on nasal cannula. Looks and appears more comfortable. 01/07: PEA arrest overnight. now intubated and back in afib RVR. cardiac arrest may have been secondary to aspiration, given feculent material suctioned out of airway post-intubation. 01/08: off vasopressors. diuresing on lasix drip. large BM overnight. remains intubated. 01/09: Finally emptying his colon. Continued good diuresis but unable to wean from ventilator. 01/10: Improving gas exchange. Stop free water replacement. Continue lasix drip. 01/11: Steady improvement in gas exchange. Tolerating SBTs better. Continue Lasix gtt, replete lytes. 01/12: Sedation is on hold. Opens eyes follows commands but weakly remains lethargic. Tolerating CPAP. UO 1.7L in 24 hours, creat improving 01/13: Extubated yesterday tolerating well. Oriented to person and place and somewhat to date. Lasix infusion discontinued yesterday start scheduled IV Lasix 40 every 12. Give Diamox 500 mg IV 1 due to contraction alkalosis. Creat 1.59, slightly improved Objective Vital Signs Date Time Temp Pulse Resp B/P (MAP) Pulse Ox O2 Delivery O2 Flow Rate FiO2 01/13/18 08:32 97 Nasal Cannula 2.00 01/13/18 08:00 86 01/13/18 08:00 97.9 24 123/58 (79) 01/12/18 08:00 30 Intake and Output 01/13/18 01/13/18 01/14/18 08:00 16:00 00:00 Output Total 475 ml Balance -475 ml Result Diagram: 01/13/18 0350 01/13/18 0350 Imaging Last Impressions Abdomen X-Ray 01/06/18 0600 Signed Impressions: Service Date/Time: Saturday, January 06, 2018 04:38 - CONCLUSION: Persistent prominent gaseous distention of bowel throughout Lito Adkins MD Abdomen/Pelvis CT 01/04/18 0000 Signed Impressions: Service Date/Time: Thursday, January 04, 2018 10:34 - CONCLUSION: 1. Abnormal bowel gas pattern most characteristic of an ileus. There is a small amount of ascitic fluid in right paracolic gutter and pelvis. 2. Bilateral pleural effusions right greater than left with consolidation in both posterior lung bases. 3. Nasogastric tube in place with the tip in the proximal duodenum. 4. Mild diverticulosis. John Neville MD Chest X-Ray 01/03/18 0000 Signed Impressions: Service Date/Time: Wednesday, January 03, 2018 09:20 - CONCLUSION: No significant change. Bilateral parenchymal opacities remain with apparent right effusion. John Neville MD Renal Ultrasound 01/01/18 0000 Signed Impressions: Service Date/Time: December 18:16 - CONCLUSION: 1. No evidence of hydronephrosis. 2. No new or significant changes compared to the prior exam 3. 2.2 cm right renal cyst. Luiz Frey MD Objective Remarks GENERAL: 72-year-old male, alert awake, lying in bed SKIN: Warm and dry. HEAD: Normocephalic. EYES: No scleral icterus. No injection or drainage. NECK: Supple, trachea midline. CARDIOVASCULAR: Tachycardic, irregular. HR in 100s, afib. RESPIRATORY: Equal chest rise. Few crackle persist, good sameer air movement. T GASTROINTESTINAL: Abdomen protuberant/obese/distended. Few bowel sounds present. No guarding. MUSCULOSKELETAL: Trace to 1+ lower extremity edema. Well perfused. NEURO: Alert awake oriented to person place and somewhat to time in almost a month and year. Moves 4 limbs to stimulation. Follows commands A/P Assessment and Plan Assessment: 72yM s/p afib ablation now with recurrent acute hypoxic respiratory failure and s/p PEA arrest which may have been secondary to aspiration event. afib now under better control. agree with continued forced diuresis. Extubated yesterday tolerating well. PT OT speech Neuro/Psych: Depression/anxiety Chronic narcotic use Continue sertraline 50 mg twice daily/home medication for depression Continue pramipexole 0.5 mg p.o. daily for extrapyramidal side effects Currently holding buspirone 5 mg 3 times daily anxiety On oxycodone/acetaminophen 5/325 1 - 2 tablets every 4 hours as needed pain PT/OT/speech CV: Chronic diastolic heart failure, with exacerbation ejection fraction 45-50% recurrent atrial fibrillation with rapid ventricular response s/p PEA arrest 01/07 Status post ablation for A. fib/flutter Hypertension Dyslipidemia Continue amiodarone 200 mg by mouth daily Continue atorvastatin 40 mg p.o. daily for his lipidemia At home on fish oil/cholecalciferol 1200/1000 1 tablet twice daily/home medication dig level 01/04 is low. additional 0.25mg dig iv x 1 given, repeat level in a.m. Holding diltiazem 240 mg p.o. daily/home medication Holding ramipril 5 mg p.o. daily for hypertension with acute kidney injury Dr. Ramirez evaluated no further plans at this time aggressive replacement of electrolytes, targeting K > 4.5, Mg > 2.[address] on scheduled Lasix 40 IV every 12, Diamox 400 mg IV 1 Resp: Acute hypoxic and hypercarbic respiratory failure MUNA -nocturnal CPAP 8 cm H2O Moderate right pleural effusion Extubated 3/30. reintubated 01/07 during PEA arrest, extubated again for 918 wean fio2 for goal spo2 > 90% vent bundle, hob elevated, nebs Forced diuresis. As above levalbuterol 1.25 mg NEB q6h EzPAP, Acapella GI: Gastroesophageal reflux disease Elevated transaminases Ileus Sigmoid diverticulosis Internal/external hemorrhoids Continue pantoprazole 40 mg IV. daily for gastroesophageal disease. On omeprazole 20 mg p.o. daily at home Docusate sodium/senna 1 tablet twice daily for bowel regimen with polyethylene glycol 17 g twice daily and lactulose 30 cc 4 times daily Follow transaminases intermittently is likely congestion. Further workup and On metoclopramide 5 mg IV every 8 hours and erythromycin 250 every 8 hours KUB reveals small bowel/transverse and descending colon air filled loops CT abdomen/pelvis revealed dilated small and large bowel. Colonoscopy by Dr. Bella/revealed sigmoid diverticulosis. Decompression of colon. Internal and external hemorrhoids. Failed swallow eval, continue NG tube feeding : BPH/overflow Andrade catheter has been placed for accurate I's and O's in a critically ill patient: continue given critical illness and forced diuresis. Continue doxazosin 4 mg daily and bethanechol 25 mg daily Lasis as above Endo: Diabetes mellitus Hypothyroidism Low testosterone Currently on insulin detemir 4 units twice daily with NovoLog sliding scale insulin/low regimen before meals at bedtime At home on insulin glargine 12 units twice daily with sliding scale insulin Continue levothyroxine 125 mcg p.o. daily. TSH 3.06 Holding testosterone Renal: Acute kidney injury likely secondary to cardiorenal syndrome - improving. Renal cyst right 2.2 cm Followed by nephrology. Monitor urine output Accurate I's and O's. Renal ultrasound with no hydronephrosis. Right renal cyst 2.2 cm. Rare eosinophils urine. Heme: Chronic apixaban use Normocytic normochromic anemia Currently renally dose of 2.5 mg twice daily. Resumed 01/07 a.m. Monitor CBC daily. Follow trends ID: Monitor for infection F/u sputum culture FEN: Hypokalemia Hypophosphatemia 1 g Neutra-Phos p.o. now. Recheck in a.m. Replace electrolytes as clinically indicated MSK: Osteoporosis/osteoarthritis PT evaluate and treat Access - central line placed 4/4 post cardiac arrest. - Lupe. Prophylaxis -GI -pantoprazole -DVT -SCD/apixaban Overall impression: This gentleman remains critically ill following a cardiac arrest now extubated gradually improving. He remains in fluid overload from acute on chronic diastolic heart failure. Renal function is compromised, but improving continue diuresis. Watch lytes closely. Level 3 Tonia Morse MD Jan 13, 2018 12:14
[2018-01-13] MEDS: SODIUM CHLORIDE 23.4% INJ 51.3 MEQ in WATER STERILE FOR INJ 1,000 ML IV SCH (15:16)
[2018-01-13] MEDS: FUROSEMIDE 40 MG/4 ML VIAL IV PUSH SCH (17:35)
[2018-01-13] MEDS: DOXAZOSIN MESYLATE 4 MG TAB PO SCH (20:34)
[2018-01-13] MEDS: ATORVASTATIN 40 MG TAB PO SCH (20:34)
[2018-01-13] MEDS: PRAMIPEXOLE DIHYDROCHLORIDE 0.25 MG TAB PO SCH (20:34)
[2018-01-14] VITALS (14 sets, daily range): BP systolic 100–150; BP diastolic 64–80; PULSE 96–137; RESP 19–29; TEMP 97.8–99.1; O2SAT 92–100
[2018-01-14] MEDS: SODIUM CHLORIDE 23.4% INJ 51.3 MEQ in WATER STERILE FOR INJ 1,000 ML IV SCH (02:36)
[2018-01-14 04:10] LABS: HEMATOCRIT 34.6 % (39.0-51.0); HEMOGLOBIN 10.9 GM/DL (13.0-17.0); MEAN CELL VOLUME 81.9 FL (80.0-100.0); MEAN CORPUSCULAR HEMOGLOBIN 25.7 PG (27.0-34.0); MEAN CORPUSCULAR HGB CONC 31.4 % (32.0-36.0); MEAN PLATELET VOLUME 8.7 FL (7.0-11.0); PLATELET COUNT 260 TH/MM3 (150-450); RED BLOOD COUNT 4.22 MIL/MM3 (4.50-5.90); RED CELL DISTRIBUTION WIDTH 20.8 % (11.6-17.2); WHITE BLOOD COUNT 7.5 TH/MM3 (4.0-11.0)
[2018-01-14 04:37] LABS: BICARBONATE 34.3 MEQ/L (21.0-32.0); CALCIUM 8.4 MG/DL (8.5-10.1); CREATININE 1.62 MG/DL (0.60-1.30)
[2018-01-14 04:40] LABS: DIGOXIN 0.4 NG/ML (0.8-2.0)
[2018-01-14] MEDS: ERYTHROMYCIN EC 250 MG TABEC PO SCH ×3 (05:20→21:07)
[2018-01-14] MEDS: METOCLOPRAMIDE HCL 10 MG/2 ML VIAL IV PUSH SCH ×3 (06:07→21:07)
[2018-01-14] MEDS: LEVOTHYROXINE SODIUM 125 MCG TAB PO SCH (06:41)
--- NOTE | 2018-01-14 07:58 | RADRPT ---
EXAM DATE/TIME: 01/14/2018 07:34 [facility] COMPARISON: CHEST SINGLE AP, January 12, 2018, 10:10. INDICATIONS : Cough. MEDICAL HISTORY : Cardiovascular disease. Cerebrovascular disease. Hypertension. GERD. Diabetes. SURGICAL HISTORY : Cholecystectomy. ENCOUNTER: Subsequent ACUITY: 2 weeks PAIN SCORE: 0/10 LOCATION: Bilateral chest FINDINGS: Nasogastric tube central line in good position. Heart remains enlarged. Increasing interstitial polina ma present. No pneumothorax. No significant pleural effusion. CONCLUSION: Increasing interstitial edema otherwise stable. Tee Jimenes MD FACR on January 14, 2018 at 7:54 Board Certified Radiologist. This report was verified electronically.
[2018-01-14] MEDS: CHLORHEXIDINE 0.12% (ORAL KIT) 15 ML CUP MT SCH ×2 (08:00→20:04)
[2018-01-14] MEDS: INSULIN ASPART SUPPLEMENTAL SCALE SQ SCH ×4 (08:00→20:46)
[2018-01-14] MEDS: SODIUM CHLORIDE 0.9% FLUSH 10 ML FLUSH IV FLUSH SCH ×2 (09:00→20:43)
[2018-01-14] MEDS ORDERED: FUROSEMIDE 40 MG/4 ML VIAL IV PUSH ONE (09:00)
[2018-01-14] MEDS: LACTULOSE SYRUP 20 GM/30 ML CUP PO SCH ×4 (09:00→20:44)
[2018-01-14] MEDS: INSULIN DETEMIR 100 UNITS/ML VIAL SQ SCH ×2 (09:00→20:46)
[2018-01-14] MEDS: PANTOPRAZOLE SODIUM 40 MG VIAL IV PUSH SCH (09:13)
[2018-01-14] MEDS: FUROSEMIDE 40 MG/4 ML VIAL IV PUSH SCH ×2 (09:13→16:48)
[2018-01-14] MEDS: BETHANECHOL CHL 25 MG TAB PO SCH (09:14)
[2018-01-14] MEDS: POTASSIUM BICARBONATE 25 MEQ EFFERVESCENT TAB NG SCH ×2 (09:14→20:43)
[2018-01-14] MEDS: POLYETHYLENE GLYCOL 17 GM PKG PO SCH ×2 (09:14→20:44)
[2018-01-14] MEDS: ALLOPURINOL 100 MG TAB PO SCH (09:14)
[2018-01-14] MEDS: AMIODARONE 200 MG TAB PO SCH (09:15)
[2018-01-14] MEDS: SERTRALINE HCL 50 MG TAB PO SCH ×2 (09:15→20:44)
[2018-01-14] MEDS: DOCUSATE SODIUM 50 MG/SENNA 8.6 MG TAB PO SCH ×2 (09:15→20:43)
[2018-01-14] MEDS: APIXABAN 2.5 MG TABLET PO SCH ×2 (09:15→21:07)
[2018-01-14] MEDS ORDERED: AZTREONAM INJ 2,000 MG in SODIUM CHLORIDE 0.9% INJ 100 ML IV SCH (10:00)
[2018-01-14] MEDS ORDERED: METOPROLOL TARTRATE 5 MG/5 ML VIAL IV PUSH ONE ×2 (11:00→16:45)
--- NOTE | 2018-01-14 11:28 | HHI.NPPN ---
Subjective History of Present Illness 72 year old male with Chf/Atrial tachycardia/Afib admitted with Tachyarrhythmia Objective Data Data Vital Signs Date Time Temp Pulse Resp B/P (MAP) Pulse Ox O2 Delivery O2 Flow Rate FiO2 01/14/18 09:06 97 Nasal Cannula 2.00 01/14/18 08:00 119 01/14/18 08:00 97 Nasal Cannula 2.00 01/14/18 08:00 99.1 119 26 122/69 (86) 97 01/14/18 06:00 110 01/14/18 04:00 98.0 101 19 141/64 (89) 92 01/14/18 04:00 101 01/14/18 02:00 117 01/14/18 00:00 116 01/14/18 00:00 97.8 113 22 128/74 (92) 97 01/13/18 22:00 113 01/13/18 21:14 100 Nasal Cannula 2.00 01/13/18 20:00 98.3 115 21 127/79 (95) 96 01/13/18 20:00 96 Nasal Cannula 2.00 01/13/18 20:00 115 01/13/18 18:00 103 01/13/18 16:00 106 01/13/18 16:00 98.4 106 22 122/70 (87) 96 01/13/18 14:00 114 01/13/18 12:00 96 01/13/18 12:00 98.1 96 21 121/76 (91) 100 -: 01/14/18 0400 01/14/18 0400 Physical Exam General Appearance: Well Developed, Well Nourished, No Acute Distress, Comfortable Neck Neck Exam: Neck Supple Pulmonary Resp Exam: No Distress, Crackles, Rhonchi, Decreased Bases, Diminished Breath Sounds Cardiology CV Exam: Arrhythmia Gastrointestinal/Abdomen GI Exam: Soft, Non-Tender, Bowel Sounds Present Extremeties Extremities Exam: Moderate Edema, Pitting Edema Neurologic Neuro Exam: Alert, Awake Assessment/Plan Problem List: (1) Acute renal failure ICD Codes: N17.9 - Acute kidney failure, unspecified Status: Acute Plan: Patient has cardiogenic shock and low blood pressure contributing, and cardiorenal syndrome Plan is to cardiovert him once he is stable on Eliquis He has underlying tachyarrhythmia Atrial fibrillation/atrial tachycardia s/p cardiac Ablation UOP good with Lasix drip Cr 1.6 Extubated K replaced follow BMP ON Lasix Use intermittently if needed (2) Chronic kidney disease, stage III (moderate) ICD Codes: N18.3 - Chronic kidney disease, stage III (moderate) Status: Acute Plan: Baseline care around 1.7 (3) Congestive heart failure ICD Codes: I50.9 - Heart failure, unspecified Status: Acute Plan: He is in cardiogenic shock low blood pressure causing the cardiorenal syndrome (4) PAF (paroxysmal atrial fibrillation) ICD Codes: I48.0 - Paroxysmal atrial fibrillation Plan: Cardiology was following (5) Diabetes ICD Codes: E11.9 - Diabetes Status: Chronic Plan: Monitor blood glucose (6) Acute on chronic systolic CHF (congestive heart failure) ICD Codes: I50.23 - Acute on chronic systolic (congestive) heart failure Problem Qualifiers (1) Acute renal failure: Qualified Codes: N17.8 - Other acute kidney failure (2) Congestive heart failure: Qualified Codes: I50.9 - Heart failure, unspecified Susan Solo MD Jan 14, 2018 11:28
[2018-01-14] MEDS ORDERED: RESP: ALBUTEROL 2.5 MG/IPRATROPIUM 0.5 MG NEB (SCH) NEB STA (15:49)
[2018-01-14] MEDS ORDERED: AZTREONAM INJ 1,000 MG in SODIUM CHLORIDE 0.9% INJ 100 ML IV STA (15:50)
[2018-01-14] MEDS: RESP: ALBUTEROL 2.5 MG/IPRATROPIUM 0.5 MG NEB (SCH) NEB ×3 (16:00→23:47)
[2018-01-14] MEDS ORDERED: RESP: ALBUTEROL 2.5 MG/IPRATROPIUM 0.5 MG NEB (PRN) NEB (16:00)
[2018-01-14] MEDS ORDERED: DIGOXIN 0.5 MG/2 ML VIAL IV PUSH ONE (17:30)
[2018-01-14] MEDS ORDERED: ESMOLOL DRIP INJ PREMIX 250 ML IV PRN (17:30)
[2018-01-14] MEDS: DOXAZOSIN MESYLATE 4 MG TAB PO SCH (20:44)
[2018-01-14] MEDS: ATORVASTATIN 40 MG TAB PO SCH (20:44)
[2018-01-14] MEDS: AZTREONAM INJ 1,000 MG in SODIUM CHLORIDE 0.9% INJ 100 ML IV SCH (21:08)
[2018-01-14] MEDS: PRAMIPEXOLE DIHYDROCHLORIDE 0.25 MG TAB PO SCH (22:16)
[2018-01-15] VITALS (15 sets, daily range): BP systolic 110–131; BP diastolic 55–73; PULSE 86–117; RESP 16–25; TEMP 98.6–99.5; O2SAT 94–100
[2018-01-15] MEDS: RESP: ALBUTEROL 2.5 MG/IPRATROPIUM 0.5 MG NEB (SCH) NEB ×5 (03:36→20:02)
[2018-01-15] MEDS: AZTREONAM INJ 1,000 MG in SODIUM CHLORIDE 0.9% INJ 100 ML IV SCH ×3 (05:24→21:53)
[2018-01-15] MEDS: LEVOTHYROXINE SODIUM 125 MCG TAB PO SCH (05:25)
[2018-01-15] MEDS: METOCLOPRAMIDE HCL 10 MG/2 ML VIAL IV PUSH SCH ×3 (05:25→21:56)
[2018-01-15] MEDS: ERYTHROMYCIN EC 250 MG TABEC PO SCH ×3 (05:25→21:56)
[2018-01-15] MEDS: CHLORHEXIDINE 0.12% (ORAL KIT) 15 ML CUP MT SCH ×2 (08:00→20:46)
[2018-01-15] MEDS: INSULIN ASPART SUPPLEMENTAL SCALE SQ SCH ×4 (08:00→21:56)
[2018-01-15] MEDS: DOCUSATE SODIUM 50 MG/SENNA 8.6 MG TAB PO SCH ×2 (08:29→21:00)
[2018-01-15] MEDS: APIXABAN 2.5 MG TABLET PO SCH ×2 (08:29→21:53)
[2018-01-15] MEDS: SERTRALINE HCL 50 MG TAB PO SCH ×2 (08:30→21:53)
[2018-01-15] MEDS: FUROSEMIDE 40 MG/4 ML VIAL IV PUSH SCH ×2 (08:30→17:56)
[2018-01-15] MEDS: PANTOPRAZOLE SODIUM 40 MG VIAL IV PUSH SCH (08:30)
[2018-01-15] MEDS: AMIODARONE 200 MG TAB PO SCH (08:30)
[2018-01-15] MEDS: ALLOPURINOL 100 MG TAB PO SCH (08:31)
[2018-01-15] MEDS: POLYETHYLENE GLYCOL 17 GM PKG PO SCH ×2 (08:32→21:00)
[2018-01-15] MEDS: BETHANECHOL CHL 25 MG TAB PO SCH (08:32)
[2018-01-15] MEDS: LACTULOSE SYRUP 20 GM/30 ML CUP PO SCH ×4 (08:32→21:00)
[2018-01-15] MEDS: INSULIN DETEMIR 100 UNITS/ML VIAL SQ SCH ×2 (08:34→21:55)
[2018-01-15] MEDS: POTASSIUM BICARBONATE 25 MEQ EFFERVESCENT TAB NG SCH ×2 (09:00→21:54)
[2018-01-15] MEDS: SODIUM CHLORIDE 0.9% FLUSH 10 ML FLUSH IV FLUSH SCH ×2 (09:00→21:54)
--- NOTE | 2018-01-15 14:25 | HHI.CCPN ---
Subjective Remarks/Hospital Course 72-year-old gentleman with multiple medical problems including morbid obesity, obstructive sleep apnea, diabetes mellitus, and chronic kidney insufficiency, underwent cardiac ablation for uncontrolled A. fib. Patient was intubated for procedure, and is transferred to ICU postprocedure for weaning of the mechanical ventilation due to increased abdominal girth. 01/01: Afebrile. Patient extremely agitated with weaning sedation. Currently on PSV trial.. Chest x-ray revealed moderate size right pleural effusion. Currently in sinus rhythm 01/02: Started on BiPAP overnight 09/09 at 50% Furosemide gtt not initiated until this AM. Will attempt to diurese. Will possibly need thoracentesis in a.m. when off apixaban 24 hours. Possible ileus on CAT scan. Started on metoclopramide 01/03: Resting comfortably in bed in no acute distress. Abdomen appears more distended today. Currently on high flow nasal cannula 35 L 70% which is off the side not in his nares satting 89%. 01/04: -1650 from NG tube overnight. Low blood sugar this a.m. noted. Will hold insulin detemir give D5 one half normal saline along with extra potassium chloride today. CT abdomen/pelvis pending. Positive BM overnight. Abdomen remains distended.. BUN and creatinine are slowly decreasing. 01/05: Another emesis today. Will likely need EGD/colonoscopy in a.m. Holding apixaban. Did not tolerate mag citrate. Abdomen remains distended without BM. SUBJECTIVE: 01/06: Status post colonoscopy today with decompression. Abdomen is less distended. Remains on nasal cannula. Looks and appears more comfortable. 01/07: PEA arrest overnight. now intubated and back in afib RVR. cardiac arrest may have been secondary to aspiration, given feculent material suctioned out of airway post-intubation. 01/08: off vasopressors. diuresing on lasix drip. large BM overnight. remains intubated. 01/09: Finally emptying his colon. Continued good diuresis but unable to wean from ventilator. 01/10: Improving gas exchange. Stop free water replacement. Continue lasix drip. 01/11: Steady improvement in gas exchange. Tolerating SBTs better. Continue Lasix gtt, replete lytes. 01/12: Sedation is on hold. Opens eyes follows commands but weakly remains lethargic. Tolerating CPAP. UO 1.7L in 24 hours, creat improving 01/13: Extubated yesterday tolerating well. Oriented to person and place and somewhat to date. Lasix infusion discontinued yesterday start scheduled IV Lasix 40 every 12. Give Diamox 500 mg IV 1 due to contraction alkalosis. Creat 1.59, slightly improved 01/14: LATE ENTRY NOTE FOR 01/15/18: Patient had overnight trouble with clearing secretion, tachypneic. Chest exam reveals coarse rhonchi and crackles. Once secretions are cleared patient breathing more comfortably. Requiring frequent NG tube suctioning. Chest x- ray showing pulmonary vascular congestion. IV Lasix 40 mg given metoprolol 2.5 mg for A. fib rate control Objective Vital Signs Date Time Temp Pulse Resp B/P (MAP) Pulse Ox O2 Delivery O2 Flow Rate FiO2 01/15/18 11:47 98 21 01/15/18 07:57 Nasal Cannula 2.00 01/15/18 06:00 86 01/15/18 04:00 99.5 24 110/55 (73) Intake and Output 01/15/18 01/15/18 01/16/18 08:00 16:00 00:00 Intake Total 280 ml Output Total 675 ml Balance -395 ml Result Diagram: 01/14/18 0400 01/14/18 0400 Other Results Laboratory Tests Test 01/14/18 16:15 Blood Gas Puncture Site LT RADIAL Blood Gas Patient Temperature 98.6 Blood Gas HCO3 26 mmol/L (22-26) Blood Gas Base Excess 3.1 mmol/L (-2-2) Blood Gas Oxygen Saturation 94 % (90-100) Arterial Blood pH 7.50 (7.380-7.420) Arterial Blood Partial Pressure CO2 34 mmHg (38-42) Arterial Blood Partial Pressure O2 73 mmHG (61-120) Arterial Blood Oxygen Content 18.1 Vol % (12.0-20.0) Arterial Blood Carboxyhemoglobin 1.3 % (0-4) Arterial Blood Methemoglobin 0.6 % (0-2) Blood Gas Hemoglobin 13.7 G/DL (12.0-16.0) Oxygen Delivery Device NASAL CANNULA Blood Gas Liter Flow 2 L/M Imaging Last Impressions Abdomen X-Ray 01/06/18 0600 Signed Impressions: Service Date/Time: Saturday, January 06, 2018 04:38 - CONCLUSION: Persistent prominent gaseous distention of bowel throughout Lito Adkins MD Abdomen/Pelvis CT 01/04/18 0000 Signed Impressions: Service Date/Time: Thursday, January 04, 2018 10:34 - CONCLUSION: 1. Abnormal bowel gas pattern most characteristic of an ileus. There is a small amount of ascitic fluid in right paracolic gutter and pelvis. 2. Bilateral pleural effusions right greater than left with consolidation in both posterior lung bases. 3. Nasogastric tube in place with the tip in the proximal duodenum. 4. Mild diverticulosis. John Neville MD Chest X-Ray 01/03/18 0000 Signed Impressions: Service Date/Time: Wednesday, January 03, 2018 09:20 - CONCLUSION: No significant change. Bilateral parenchymal opacities remain with apparent right effusion. John Neville MD Renal Ultrasound 01/01/18 0000 Signed Impressions: Service Date/Time: December 18:16 - CONCLUSION: 1. No evidence of hydronephrosis. 2. No new or significant changes compared to the prior exam 3. 2.2 cm right renal cyst. Luiz Frey MD Objective Remarks GENERAL: 72-year-old male, alert awake, lying in bed, in moderate respiratory distress due to secretions SKIN: Warm and dry. HEAD: Normocephalic. EYES: No scleral icterus. No injection or drainage. NECK: Supple, trachea midline. CARDIOVASCULAR: Tachycardic, irregular. HR in 120s, afib. RESPIRATORY: Equal chest rise. Bibasilar coarse crackle and rhonchi, good sameer air movement. Maintaining oxygen saturation GASTROINTESTINAL: Abdomen protuberant/obese/distended. Few bowel sounds present. No guarding. MUSCULOSKELETAL: Trace to 1+ lower extremity edema. Well perfused. NEURO: Alert awake oriented to person, moving all 4 extremities. Follows commands A/P Assessment and Plan Assessment: 72yM s/p afib ablation now with recurrent acute hypoxic respiratory failure and s/p PEA arrest which may have been secondary to aspiration event. afib now under better control. agree with continued forced diuresis. Extubated . Now with increasing difficulty clearing secretions Neuro/Psych: Depression/anxiety Chronic narcotic use Minimize sedation continue sertraline 50 mg twice daily/home medication for depression Continue pramipexole 0.5 mg p.o. daily for extrapyramidal side effects Currently holding buspirone 5 mg 3 times daily anxiety On oxycodone/acetaminophen 5/325 1 - 2 tablets every 4 hours as needed pain PT/OT/speech CV: Chronic diastolic heart failure, with exacerbation ejection fraction 45-50% recurrent atrial fibrillation with rapid ventricular response s/p PEA arrest 01/07 Status post ablation for A. fib/flutter Hypertension Dyslipidemia IV metoprolol 2.5 mg every 6 hours as needed for heart rate more than 120 Continue amiodarone 200 mg by mouth daily, may need to restart amiodarone infusion IV digoxin if heart rate is not controlled Continue atorvastatin 40 mg p.o. daily for his lipidemia At home on fish oil/cholecalciferol 1200/1000 1 tablet twice daily/home medication Holding diltiazem 240 mg p.o. daily/home medication, may need to restart Holding ramipril 5 mg p.o. daily for hypertension with acute kidney injury Dr. Ramirez evaluated no further plans at this time aggressive replacement of electrolytes, targeting K > 4.5, Mg > 2.5 Off Lasix GTT. On scheduled Lasix 40 IV every 12, Diamox 400 mg IV 1 Additional dose of 40 mg IV Lasix today Resp: Acute hypoxic and hypercarbic respiratory failure MUNA -nocturnal CPAP 8 cm H2O Moderate right pleural effusion Extubated 01/02. reintubated 01/07 during PEA arrest, extubated again 01/12/18 wean fio2 for goal spo2 > 90% Hob elevated, nebs Forced diuresis. As above levalbuterol 1.25 mg NEB q6h EzPAP, Acapella GI: Gastroesophageal reflux disease Elevated transaminases Ileus Sigmoid diverticulosis Internal/external hemorrhoids Continue pantoprazole 40 mg IV. daily for gastroesophageal disease. On omeprazole 20 mg p.o. daily at home NPO per speech, continue NG tube feeding Docusate sodium/senna 1 tablet twice daily for bowel regimen with polyethylene glycol 17 g twice daily and lactulose 30 cc 4 times daily Follow transaminases intermittently is likely congestion. Further workup and On metoclopramide 5 mg IV every 8 hours and erythromycin 250 every 8 hours KUB reveals small bowel/transverse and descending colon air filled loops CT abdomen/pelvis revealed dilated small and large bowel. Colonoscopy by Dr. Bella/revealed sigmoid diverticulosis. Decompression of colon. Internal and external hemorrhoids. : BPH/overflow Andrade catheter has been placed for accurate I's and O's in a critically ill patient: continue given critical illness and forced diuresis. Continue doxazosin 4 mg daily and bethanechol 25 mg daily Lasix as above Endo: Diabetes mellitus Hypothyroidism Low testosterone Currently on insulin detemir 4 units twice daily with NovoLog sliding scale insulin/low regimen before meals at bedtime At home on insulin glargine 12 units twice daily with sliding scale insulin Continue levothyroxine 125 mcg p.o. daily. TSH 3.06 Holding testosterone Renal: Acute kidney injury likely secondary to cardiorenal syndrome Renal cyst right 2.2 cm Followed by nephrology. Monitor urine output Accurate I's and O's. Renal ultrasound with no hydronephrosis. Right renal cyst 2.2 cm. Rare eosinophils urine. Heme: Chronic apixaban use Normocytic normochromic anemia Currently renally dose of 2.5 mg twice daily. Resumed 01/07 a.m. Monitor CBC daily. Follow trends ID: Monitor for infection F/u sputum culture FEN: Hypokalemia Hypophosphatemia 1 g Neutra-Phos p.o. now. Recheck in a.m. Replace electrolytes as clinically indicated MSK: Osteoporosis/osteoarthritis PT evaluate and treat Access - central line placed 01/07 post cardiac arrest. - Andrade. Prophylaxis -GI -pantoprazole -DVT -SCD/apixaban Overall impression: This gentleman remains critically ill following a cardiac arrest now extubated. Difficulty clearing secretions now requiring frequent NT suctioning. He remains in fluid overload from acute on chronic diastolic heart failure. Give additional IV Lasix. May need reintubation. Watch closely in the ICU CCT 30 min Tonia Morse MD Jan 15, 2018 14:25
--- NOTE | 2018-01-15 14:30 | HHI.CCPN ---
Subjective Remarks/Hospital Course 72-year-old gentleman with multiple medical problems including morbid obesity, obstructive sleep apnea, diabetes mellitus, and chronic kidney insufficiency, underwent cardiac ablation for uncontrolled A. fib. Patient was intubated for procedure, and is transferred to ICU postprocedure for weaning of the mechanical ventilation due to increased abdominal girth. 01/01: Afebrile. Patient extremely agitated with weaning sedation. Currently on PSV trial.. Chest x-ray revealed moderate size right pleural effusion. Currently in sinus rhythm 01/02: Started on BiPAP overnight 09/09 at 50% Furosemide gtt not initiated until this AM. Will attempt to diurese. Will possibly need thoracentesis in a.m. when off apixaban 24 hours. Possible ileus on CAT scan. Started on metoclopramide 01/03: Resting comfortably in bed in no acute distress. Abdomen appears more distended today. Currently on high flow nasal cannula 35 L 70% which is off the side not in his nares satting 89%. 01/04: -1650 from NG tube overnight. Low blood sugar this a.m. noted. Will hold insulin detemir give D5 one half normal saline along with extra potassium chloride today. CT abdomen/pelvis pending. Positive BM overnight. Abdomen remains distended.. BUN and creatinine are slowly decreasing. 01/05: Another emesis today. Will likely need EGD/colonoscopy in a.m. Holding apixaban. Did not tolerate mag citrate. Abdomen remains distended without BM. SUBJECTIVE: 01/06: Status post colonoscopy today with decompression. Abdomen is less distended. Remains on nasal cannula. Looks and appears more comfortable. 01/07: PEA arrest overnight. now intubated and back in afib RVR. cardiac arrest may have been secondary to aspiration, given feculent material suctioned out of airway post-intubation. 01/08: off vasopressors. diuresing on lasix drip. large BM overnight. remains intubated. 01/09: Finally emptying his colon. Continued good diuresis but unable to wean from ventilator. 01/10: Improving gas exchange. Stop free water replacement. Continue lasix drip. 01/11: Steady improvement in gas exchange. Tolerating SBTs better. Continue Lasix gtt, replete lytes. 01/12: Sedation is on hold. Opens eyes follows commands but weakly remains lethargic. Tolerating CPAP. UO 1.7L in 24 hours, creat improving 01/13: Extubated yesterday tolerating well. Oriented to person and place and somewhat to date. Lasix infusion discontinued yesterday start scheduled IV Lasix 40 every 12. Give Diamox 500 mg IV 1 due to contraction alkalosis. Creat 1.59, slightly improved 01/14: LATE ENTRY NOTE FOR 01/15/18: Patient had overnight trouble with clearing secretion, tachypneic. Chest exam reveals coarse rhonchi and crackles. Once secretions are cleared patient breathing more comfortably. Requiring frequent NG tube suctioning. Chest x- ray showing pulmonary vascular congestion. IV Lasix 40 mg given metoprolol 2.5 mg for A. fib rate control 01/15: Breathing more comfortably. Good oxygenation. Clearing secretions well. Chest coarse rhonchi improved. Urine output excellent with diuresis. Heart rate is better controlled. Will place on scheduled digoxin p.o., and restart the Cardizem Objective Vital Signs Date Time Temp Pulse Resp B/P (MAP) Pulse Ox O2 Delivery O2 Flow Rate FiO2 01/15/18 11:47 98 21 01/15/18 07:57 Nasal Cannula 2.00 01/15/18 06:00 86 01/15/18 04:00 99.5 24 110/55 (73) Intake and Output 01/15/18 01/15/18 01/16/18 08:00 16:00 00:00 Intake Total 280 ml Output Total 675 ml Balance -395 ml Result Diagram: 01/14/18 0400 01/14/18 0400 Other Results Laboratory Tests Test 01/14/18 16:15 Blood Gas Puncture Site LT RADIAL Blood Gas Patient Temperature 98.6 Blood Gas HCO3 26 mmol/L (22-26) Blood Gas Base Excess 3.1 mmol/L (-2-2) Blood Gas Oxygen Saturation 94 % (90-100) Arterial Blood pH 7.50 (7.380-7.420) Arterial Blood Partial Pressure CO2 34 mmHg (38-42) Arterial Blood Partial Pressure O2 73 mmHG (61-120) Arterial Blood Oxygen Content 18.1 Vol % (12.0-20.0) Arterial Blood Carboxyhemoglobin 1.3 % (0-4) Arterial Blood Methemoglobin 0.6 % (0-2) Blood Gas Hemoglobin 13.7 G/DL (12.0-16.0) Oxygen Delivery Device NASAL CANNULA Blood Gas Liter Flow 2 L/M Imaging Last Impressions Abdomen X-Ray 01/06/18 0600 Signed Impressions: Service Date/Time: Saturday, January 06, 2018 04:38 - CONCLUSION: Persistent prominent gaseous distention of bowel throughout Lito Adkins MD Abdomen/Pelvis CT 01/04/18 0000 Signed Impressions: Service Date/Time: Thursday, January 04, 2018 10:34 - CONCLUSION: 1. Abnormal bowel gas pattern most characteristic of an ileus. There is a small amount of ascitic fluid in right paracolic gutter and pelvis. 2. Bilateral pleural effusions right greater than left with consolidation in both posterior lung bases. 3. Nasogastric tube in place with the tip in the proximal duodenum. 4. Mild diverticulosis. John Neville MD Chest X-Ray 01/03/18 0000 Signed Impressions: Service Date/Time: Wednesday, January 03, 2018 09:20 - CONCLUSION: No significant change. Bilateral parenchymal opacities remain with apparent right effusion. John Neville MD Renal Ultrasound 01/01/18 0000 Signed Impressions: Service Date/Time: December 18:16 - CONCLUSION: 1. No evidence of hydronephrosis. 2. No new or significant changes compared to the prior exam 3. 2.2 cm right renal cyst. Luiz Frey MD Objective Remarks GENERAL: 72-year-old male, alert awake, lying in bed, breathing comfortably SKIN: Warm and dry. HEAD: Normocephalic. EYES: No scleral icterus. No injection or drainage. ENT: NG tube in place. Airway patent NECK: Supple, trachea midline. CARDIOVASCULAR: Tachycardic, irregular. HR in 110-120s, afib. RESPIRATORY: Equal chest rise. Few scattered coarse crackle and rhonchi, good sameer air movement. Maintaining oxygen saturation GASTROINTESTINAL: Abdomen protuberant/obese/distended. Few bowel sounds present. No guarding. MUSCULOSKELETAL: Trace to 1+ lower extremity edema. Well perfused. NEURO: Alert awake oriented to person, only today. Follows commands. Moves all extremities equally Urinary Catheter: Yes Assessment to: Continue A/P Assessment and Plan Assessment: 72yM s/p afib ablation now with recurrent acute hypoxic respiratory failure and s/p PEA arrest which may have been secondary to aspiration event. afib now poorly controlled. Continued forced diuresis. Extubated 01/12. Clearing secretions better today Neuro/Psych: Depression/anxiety Chronic narcotic use Minimize sedation continue sertraline 50 mg twice daily/home medication for depression Continue pramipexole 0.5 mg p.o. daily for extrapyramidal side effects Currently holding buspirone 5 mg 3 times daily anxiety On oxycodone/acetaminophen 5/325 1 - 2 tablets every 4 hours as needed pain PT/OT/speech CV: Chronic diastolic heart failure, with exacerbation ejection fraction 45-50% recurrent atrial fibrillation with rapid ventricular response s/p PEA arrest 01/07 Status post ablation for A. fib/flutter Hypertension Dyslipidemia IV metoprolol 2.5 mg every 6 hours as needed for heart rate more than 120 Continue amiodarone 200 mg by mouth daily, restart amiodarone infusion if HR > 120 persistently Received IV digoxin and IV metoprolol yesterday Start digoxin 0.125 mg p.o. daily Start Cardizem 30 mg p.o. every 6 hours. Holding diltiazem 240 mg p.o. daily/ home medication Continue atorvastatin 40 mg p.o. daily for his lipidemia At home on fish oil/cholecalciferol 1200/1000 1 tablet twice daily/home medication Holding ramipril 5 mg p.o. daily for hypertension with acute kidney injury Dr. Ramirez evaluated no further plans at this time aggressive replacement of electrolytes, targeting K > 4.5, Mg > 2.5 Off Lasix GTT. On scheduled Lasix 40 IV every 12, s/p Diamox 400 mg IV 1 Resp: Acute hypoxic and hypercarbic respiratory failure MUNA -nocturnal CPAP 8 cm H2O Moderate right pleural effusion Extubated 01/02. reintubated 01/07 during PEA arrest, extubated again 01/12/18 wean fio2 for goal spo2 > 90% Hob elevated, nebs Forced diuresis as above EzPAP, Acapella GI: Gastroesophageal reflux disease Elevated transaminases Ileus Sigmoid diverticulosis Internal/external hemorrhoids DC IV Protonix, placed on lansoprazole via NG tube NPO per speech, continue NG tube feeding Docusate sodium/senna 1 tablet twice daily for bowel regimen with polyethylene glycol 17 g twice daily and lactulose 30 cc 4 times daily Follow transaminases intermittently is likely congestion. Further workup and On metoclopramide 5 mg IV every 8 hours and erythromycin 250 every 8 hours KUB reveals small bowel/transverse and descending colon air filled loops CT abdomen/pelvis revealed dilated small and large bowel. Colonoscopy by Dr. Bella/revealed sigmoid diverticulosis. Decompression of colon. Internal and external hemorrhoids. : BPH/overflow Andrade catheter has been placed for accurate I's and O's in a critically ill patient: continue given critical illness and forced diuresis. Continue doxazosin 4 mg daily and bethanechol 25 mg daily Lasix as above Endo: Diabetes mellitus Hypothyroidism Low testosterone Currently on insulin detemir 4 units twice daily with NovoLog sliding scale insulin/low regimen before meals at bedtime At home on insulin glargine 12 units twice daily with sliding scale insulin Continue levothyroxine 125 mcg p.o. daily. TSH 3.06 Holding testosterone Renal: Acute kidney injury likely secondary to cardiorenal syndrome Renal cyst right 2.2 cm Followed by nephrology. Monitor urine output Accurate I's and O's. Renal ultrasound with no hydronephrosis. Right renal cyst 2.2 cm. Rare eosinophils urine. Heme: Chronic apixaban use Normocytic normochromic anemia Currently renally dose of 2.5 mg twice daily. Resumed 4/4 a.m. Monitor CBC daily. Follow trends ID: Probable pneumonia/E. coli in sputum Azactam started yesterday for E. coli in sputum Monitor for infection F/u sputum culture FEN: Hypokalemia Hypophosphatemia Replace electrolytes as clinically indicated MSK: Osteoporosis/osteoarthritis PT evaluate and treat Access - central line placed 01/07 post cardiac arrest. - Andrade. Prophylaxis -GI -Lansoprazole -DVT -SCD/apixaban Overall impression: This gentleman remains critically ill following a cardiac arrest now extubated. Difficulty clearing secretions now improved. He remains in fluid overload from acute on chronic diastolic heart failure. Watch closely in the ICU CCT 30 min Tonia Morse MD Jan 15, 2018 14:30
[2018-01-15] MEDS: DILTIAZEM HCL 30 MG TAB PO SCH ×2 (14:48→21:53)
--- NOTE | 2018-01-15 15:47 | HHI.NPPN ---
Subjective History of Present Illness 72 year old male with Chf/Atrial tachycardia/Afib admitted with Tachyarrhythmia Objective Data Data Vital Signs Date Time Temp Pulse Resp B/P (MAP) Pulse Ox O2 Delivery O2 Flow Rate FiO2 01/15/18 11:47 98 21 01/15/18 07:57 96 Nasal Cannula 2.00 01/15/18 06:00 86 01/15/18 04:00 99.5 107 24 110/55 (73) 96 01/15/18 04:00 110 01/15/18 02:00 103 01/15/18 00:00 98.7 101 20 119/66 (83) 97 01/15/18 00:00 101 01/14/18 22:00 107 01/14/18 20:00 98.8 105 26 150/69 (96) 97 01/14/18 20:00 105 01/14/18 20:00 97 Nasal Cannula 2.00 01/14/18 19:25 96 Nasal Cannula 3.00 01/14/18 18:00 109 01/14/18 16:00 137 01/14/18 16:00 99.1 137 29 111/80 (90) 100 -: 01/14/18 0400 01/14/18 0400 Physical Exam General Appearance: Well Developed, Well Nourished, No Acute Distress, Comfortable Neck Neck Exam: Neck Supple Pulmonary Resp Exam: No Distress, Crackles, Rhonchi, Decreased Bases, Diminished Breath Sounds Cardiology CV Exam: Arrhythmia Gastrointestinal/Abdomen GI Exam: Soft, Non-Tender, Bowel Sounds Present Extremeties Extremities Exam: Moderate Edema, Pitting Edema Neurologic Neuro Exam: Alert, Awake Assessment/Plan Problem List: (1) Acute renal failure ICD Codes: N17.9 - Acute kidney failure, unspecified Status: Acute Plan: Patient has cardiogenic shock and low blood pressure contributing, and cardiorenal syndrome Plan is to cardiovert him once he is stable on Eliquis He has underlying tachyarrhythmia Atrial fibrillation/atrial tachycardia s/p cardiac Ablation UOP Cr 1.6 Extubated K replaced follow BMP ON Lasix 40 mg IV every 12 hours (2) Chronic kidney disease, stage III (moderate) ICD Codes: N18.3 - Chronic kidney disease, stage III (moderate) Status: Acute Plan: Baseline care around 1.7 (3) Congestive heart failure ICD Codes: I50.9 - Heart failure, unspecified Status: Acute Plan: He is in cardiogenic shock low blood pressure causing the cardiorenal syndrome (4) PAF (paroxysmal atrial fibrillation) ICD Codes: I48.0 - Paroxysmal atrial fibrillation Plan: Cardiology was following (5) Diabetes ICD Codes: E11.9 - Diabetes Status: Chronic Plan: Monitor blood glucose (6) Acute on chronic systolic CHF (congestive heart failure) ICD Codes: I50.23 - Acute on chronic systolic (congestive) heart failure Problem Qualifiers (1) Acute renal failure: Qualified Codes: N17.8 - Other acute kidney failure (2) Congestive heart failure: Qualified Codes: I50.9 - Heart failure, unspecified Susan Solo MD Jan 15, 2018 15:47
[2018-01-15] MEDS: DIGOXIN SOLUTION 0.125 MG/2.5 ML CUP PO SCH (17:56)
[2018-01-15 18:30] LABS: ALT (GPT) 115 U/L (12-78); AST (GOT) 124 U/L (15-37); BICARBONATE 30.5 MEQ/L (21.0-32.0); BLOOD UREA NITROGEN 44 MG/DL (7-18); CALCIUM 8.4 MG/DL (8.5-10.1); CHLORIDE 112 MEQ/L (98-107); CREATININE 1.82 MG/DL (0.60-1.30); GLOMERULAR FILTRATION RATE 37 ML/MIN (>89); GLUCOSE,RANDOM 200 MG/DL (74-106); MAGNESIUM 1.9 MG/DL (1.5-2.5); SODIUM (NA) 150 MEQ/L (136-145)
[2018-01-15 18:33] LABS: ALKALINE PHOSPHATASE 126 U/L (45-117); TOTAL BILIRUBIN ADULT 0.6 MG/DL (0.2-1.0); TOTAL PROTEIN 6.1 GM/DL (6.4-8.2)
[2018-01-15] MEDS: ATORVASTATIN 40 MG TAB PO SCH (21:54)
[2018-01-15] MEDS: DOXAZOSIN MESYLATE 4 MG TAB PO SCH (21:54)
[2018-01-15] MEDS: PRAMIPEXOLE DIHYDROCHLORIDE 0.25 MG TAB PO SCH (22:20)
[2018-01-16] VITALS (13 sets, daily range): BP systolic 117–138; BP diastolic 55–85; PULSE 73–116; RESP 12–24; TEMP 97.7–99.1; O2SAT 92–100
[2018-01-16] MEDS: RESP: ALBUTEROL 2.5 MG/IPRATROPIUM 0.5 MG NEB (SCH) NEB ×6 (01:05→20:00)
[2018-01-16] MEDS: DILTIAZEM HCL 30 MG TAB PO SCH ×4 (02:27→22:42)
[2018-01-16 04:16] LABS: AUTOMATED NEUTROPHIL # 6.3 TH/MM3 (1.8-7.7); BASOPHIL # 0.1 TH/MM3 (0-0.2); BASOPHIL % 0.7 % (0.0-2.0); EOSINOPHIL # 0.2 TH/MM3 (0-0.4); EOSINOPHIL % 2.4 % (0.0-4.0); HEMATOCRIT 33.7 % (39.0-51.0); HEMOGLOBIN 10.6 GM/DL (13.0-17.0); LYMPH % 12.1 % (9.0-44.0); MEAN CELL VOLUME 82.3 FL (80.0-100.0); MEAN CORPUSCULAR HEMOGLOBIN 25.8 PG (27.0-34.0); MEAN CORPUSCULAR HGB CONC 31.3 % (32.0-36.0); MEAN PLATELET VOLUME 8.9 FL (7.0-11.0); MONO % 5.5 % (0.0-8.0); MONOCYTE # 0.4 TH/MM3 (0-0.9); NEUT % 79.3 % (16.0-70.0); PLATELET COUNT 282 TH/MM3 (150-450); RED CELL DISTRIBUTION WIDTH 21.5 % (11.6-17.2)
[2018-01-16 04:39] LABS: ALBUMIN 2.1 GM/DL (3.4-5.0); BICARBONATE 32.7 MEQ/L (21.0-32.0); BLOOD UREA NITROGEN 43 MG/DL (7-18); CALCIUM 8.4 MG/DL (8.5-10.1); CHLORIDE 111 MEQ/L (98-107); GLOMERULAR FILTRATION RATE 35 ML/MIN (>89); GLUCOSE,RANDOM 278 MG/DL (74-106); MAGNESIUM 1.9 MG/DL (1.5-2.5); SODIUM (NA) 149 MEQ/L (136-145)
[2018-01-16 04:42] LABS: ALKALINE PHOSPHATASE 119 U/L (45-117); ALT (GPT) 104 U/L (12-78); AST (GOT) 93 U/L (15-37); TOTAL BILIRUBIN ADULT 0.6 MG/DL (0.2-1.0); TOTAL PROTEIN 6.1 GM/DL (6.4-8.2)
[2018-01-16] MEDS: LEVOTHYROXINE SODIUM 125 MCG TAB PO SCH (05:04)
[2018-01-16] MEDS: METOCLOPRAMIDE HCL 10 MG/2 ML VIAL IV PUSH SCH ×3 (05:04→22:44)
[2018-01-16] MEDS: AZTREONAM INJ 1,000 MG in SODIUM CHLORIDE 0.9% INJ 100 ML IV SCH ×3 (05:04→22:47)
[2018-01-16] MEDS: ERYTHROMYCIN EC 250 MG TABEC PO SCH ×3 (05:04→22:44)
[2018-01-16] MEDS: CHLORHEXIDINE 0.12% (ORAL KIT) 15 ML CUP MT SCH ×2 (08:50→20:00)
[2018-01-16] MEDS: POLYETHYLENE GLYCOL 17 GM PKG PO SCH ×2 (09:00→21:00)
[2018-01-16] MEDS: LACTULOSE SYRUP 20 GM/30 ML CUP PO SCH ×4 (09:00→22:43)
[2018-01-16] MEDS: DOCUSATE SODIUM 50 MG/SENNA 8.6 MG TAB PO SCH ×2 (09:00→21:00)
[2018-01-16] MEDS: LANSOPRAZOLE SOLUTAB 30 MG TAB NG SCH (09:27)
[2018-01-16] MEDS: ALLOPURINOL 100 MG TAB PO SCH (09:27)
[2018-01-16] MEDS: BETHANECHOL CHL 25 MG TAB PO SCH (09:27)
[2018-01-16] MEDS: SERTRALINE HCL 50 MG TAB PO SCH ×2 (09:27→22:42)
[2018-01-16] MEDS: AMIODARONE 200 MG TAB PO SCH (09:27)
[2018-01-16] MEDS: FUROSEMIDE 40 MG/4 ML VIAL IV PUSH SCH ×2 (09:27→17:36)
[2018-01-16] MEDS: APIXABAN 2.5 MG TABLET PO SCH ×2 (09:27→22:42)
[2018-01-16] MEDS: SODIUM CHLORIDE 0.9% FLUSH 10 ML FLUSH IV FLUSH SCH ×2 (09:28→23:20)
[2018-01-16] MEDS: POTASSIUM BICARBONATE 25 MEQ EFFERVESCENT TAB NG SCH ×2 (09:28→22:43)
[2018-01-16] MEDS: INSULIN DETEMIR 100 UNITS/ML VIAL SQ SCH ×2 (09:48→23:08)
[2018-01-16] MEDS: DIGOXIN SOLUTION 0.125 MG/2.5 ML CUP PO SCH (10:36)
[2018-01-16] MEDS: INSULIN ASPART SUPPLEMENTAL SCALE SQ SCH ×4 (10:37→23:09)
--- NOTE | 2018-01-16 11:07 | HHI.NPPN ---
Subjective History of Present Illness 72 year old male with Chf/Atrial tachycardia/Afib admitted with Tachyarrhythmia Objective Data Data Vital Signs Date Time Temp Pulse Resp B/P (MAP) Pulse Ox O2 Delivery O2 Flow Rate FiO2 01/16/18 06:00 103 01/16/18 04:00 106 01/16/18 04:00 98.8 106 22 130/55 (80) 100 01/16/18 02:00 112 01/16/18 00:00 99.1 116 20 128/69 (88) 92 01/16/18 00:00 116 01/15/18 22:00 117 01/15/18 20:00 100 Nasal Cannula 2.00 01/15/18 20:00 99 01/15/18 20:00 98.6 99 24 131/66 (87) 100 01/15/18 19:50 99 Nasal Cannula 2.00 01/15/18 18:00 105 01/15/18 16:00 98.8 107 25 121/67 (85) 95 01/15/18 16:00 107 01/15/18 14:00 97 01/15/18 12:00 99.1 111 16 120/70 (87) 94 01/15/18 12:00 111 01/15/18 11:47 98 21 -: 01/16/18 0400 01/16/18 0400 Physical Exam General Appearance: Well Developed, Well Nourished, No Acute Distress, Comfortable Neck Neck Exam: Neck Supple Pulmonary Resp Exam: No Distress, Crackles, Rhonchi, Decreased Bases, Diminished Breath Sounds Cardiology CV Exam: Arrhythmia Gastrointestinal/Abdomen GI Exam: Soft, Non-Tender, Bowel Sounds Present Extremeties Extremities Exam: Moderate Edema, Pitting Edema Neurologic Neuro Exam: Alert, Awake Assessment/Plan Problem List: (1) Acute renal failure ICD Codes: N17.9 - Acute kidney failure, unspecified Status: Acute Plan: Patient has cardiogenic shock and low blood pressure contributing, and cardiorenal syndrome Plan is to cardiovert him once he is stable on Eliquis He has underlying tachyarrhythmia Atrial fibrillation/atrial tachycardia s/p cardiac Ablation UOP Cr 1.9 Na 149 high Extubated K 3.6 follow BMP ON Lasix 40 mg IV every 12 hours getting TF add free water (2) Chronic kidney disease, stage III (moderate) ICD Codes: N18.3 - Chronic kidney disease, stage III (moderate) Status: Acute Plan: Baseline care around 1.7 (3) Congestive heart failure ICD Codes: I50.9 - Heart failure, unspecified Status: Acute Plan: He is in cardiogenic shock low blood pressure causing the cardiorenal syndrome (4) PAF (paroxysmal atrial fibrillation) ICD Codes: I48.0 - Paroxysmal atrial fibrillation Plan: Cardiology was following (5) Diabetes ICD Codes: E11.9 - Diabetes Status: Chronic Plan: Monitor blood glucose (6) Acute on chronic systolic CHF (congestive heart failure) ICD Codes: I50.23 - Acute on chronic systolic (congestive) heart failure Problem Qualifiers (1) Acute renal failure: Qualified Codes: N17.8 - Other acute kidney failure (2) Congestive heart failure: Qualified Codes: I50.9 - Heart failure, unspecified Susan Solo MD Jan 16, 2018 11:07
--- NOTE | 2018-01-16 19:25 | HHI.CCPN ---
Subjective Remarks/Hospital Course 72-year-old gentleman with multiple medical problems including morbid obesity, obstructive sleep apnea, diabetes mellitus, and chronic kidney insufficiency, underwent cardiac ablation for uncontrolled A. fib. Patient was intubated for procedure, and is transferred to ICU postprocedure for weaning of the mechanical ventilation due to increased abdominal girth. 01/01: Afebrile. Patient extremely agitated with weaning sedation. Currently on PSV trial.. Chest x-ray revealed moderate size right pleural effusion. Currently in sinus rhythm 01/02: Started on BiPAP overnight 09/09 at 50% Furosemide gtt not initiated until this AM. Will attempt to diurese. Will possibly need thoracentesis in a.m. when off apixaban 24 hours. Possible ileus on CAT scan. Started on metoclopramide 01/03: Resting comfortably in bed in no acute distress. Abdomen appears more distended today. Currently on high flow nasal cannula 35 L 70% which is off the side not in his nares satting 89%. 01/04: -1650 from NG tube overnight. Low blood sugar this a.m. noted. Will hold insulin detemir give D5 one half normal saline along with extra potassium chloride today. CT abdomen/pelvis pending. Positive BM overnight. Abdomen remains distended.. BUN and creatinine are slowly decreasing. 01/05: Another emesis today. Will likely need EGD/colonoscopy in a.m. Holding apixaban. Did not tolerate mag citrate. Abdomen remains distended without BM. 01/06: Status post colonoscopy today with decompression. Abdomen is less distended. Remains on nasal cannula. Looks and appears more comfortable. 01/07: PEA arrest overnight. now intubated and back in afib RVR. cardiac arrest may have been secondary to aspiration, given feculent material suctioned out of airway post-intubation. 01/08: off vasopressors. diuresing on lasix drip. large BM overnight. remains intubated. 01/09: Finally emptying his colon. Continued good diuresis but unable to wean from ventilator. 01/10: Improving gas exchange. Stop free water replacement. Continue lasix drip. 01/11: Steady improvement in gas exchange. Tolerating SBTs better. Continue Lasix gtt, replete lytes. 01/12: Sedation is on hold. Opens eyes follows commands but weakly remains lethargic. Tolerating CPAP. UO 1.7L in 24 hours, creat improving 01/13: Extubated yesterday tolerating well. Oriented to person and place and somewhat to date. Lasix infusion discontinued yesterday start scheduled IV Lasix 40 every 12. Give Diamox 500 mg IV 1 due to contraction alkalosis. Creat 1.59, slightly improved 01/14: LATE ENTRY NOTE FOR 01/15/18: Patient had overnight trouble with clearing secretion, tachypneic. Chest exam reveals coarse rhonchi and crackles. Once secretions are cleared patient breathing more comfortably. Requiring frequent NG tube suctioning. Chest x- ray showing pulmonary vascular congestion. IV Lasix 40 mg given metoprolol 2.5 mg for A. fib rate control 01/15: Breathing more comfortably. Good oxygenation. Clearing secretions well. Chest coarse rhonchi improved. Urine output excellent with diuresis. Heart rate is better controlled. Will place on scheduled digoxin p.o., and restart the Cardizem SUBJECTIVE: 01/16: oxygenation improving. awake. following commands. good diuresis continues. Objective Vital Signs Date Time Temp Pulse Resp B/P (MAP) Pulse Ox O2 Delivery O2 Flow Rate FiO2 01/16/18 17:04 98.0 103 22 128/68 (88) 97 01/16/18 08:00 Nasal Cannula 2.00 01/15/18 11:47 21 Intake and Output 01/16/18 01/16/18 01/17/18 08:00 16:00 00:00 Intake Total 760 ml Output Total 775 ml 1000 ml Balance -15 ml -1000 ml Result Diagram: 01/16/18 0400 01/16/18 0400 Imaging Last Impressions Abdomen X-Ray 01/06/18 0600 Signed Impressions: Service Date/Time: Saturday, January 06, 2018 04:38 - CONCLUSION: Persistent prominent gaseous distention of bowel throughout Lito Adkins MD Abdomen/Pelvis CT 01/04/18 0000 Signed Impressions: Service Date/Time: Thursday, January 04, 2018 10:34 - CONCLUSION: 1. Abnormal bowel gas pattern most characteristic of an ileus. There is a small amount of ascitic fluid in right paracolic gutter and pelvis. 2. Bilateral pleural effusions right greater than left with consolidation in both posterior lung bases. 3. Nasogastric tube in place with the tip in the proximal duodenum. 4. Mild diverticulosis. John Neville MD Chest X-Ray 01/03/18 0000 Signed Impressions: Service Date/Time: Wednesday, January 03, 2018 09:20 - CONCLUSION: No significant change. Bilateral parenchymal opacities remain with apparent right effusion. John Neville MD Renal Ultrasound 01/01/18 0000 Signed Impressions: Service Date/Time: December 18:16 - CONCLUSION: 1. No evidence of hydronephrosis. 2. No new or significant changes compared to the prior exam 3. 2.2 cm right renal cyst. Luiz Frey MD Objective Remarks GENERAL: 72-year-old male, alert awake, lying in bed, breathing comfortably SKIN: Warm and dry. HEAD: Normocephalic. EYES: No scleral icterus. No injection or drainage. ENT: NG tube in place. Airway patent NECK: Supple, trachea midline. CARDIOVASCULAR: Tachycardic, irregular. HR in 90s, afib. RESPIRATORY: Equal chest rise. good chest excursion. Maintaining oxygen saturation GASTROINTESTINAL: Abdomen protuberant/obese/distended. No guarding. MUSCULOSKELETAL: Trace to 1+ lower extremity edema. Well perfused. NEURO: Alert awake oriented to person, only today. Follows commands. Moves all extremities equally A/P Assessment and Plan Assessment: 72yM s/p afib ablation now with recurrent acute hypoxic respiratory failure and s/p PEA arrest which may have been secondary to aspiration event. afib with improved control. Continued forced diuresis. Extubated 01/12. Clearing secretions better today. stable for transfer to floor. consult hospitalist. Neuro/Psych: Depression/anxiety Chronic narcotic use Minimize sedation continue sertraline 50 mg twice daily/home medication for depression Continue pramipexole 0.5 mg p.o. daily for extrapyramidal side effects Currently holding buspirone 5 mg 3 times daily anxiety On oxycodone/acetaminophen 5/325 1 - 2 tablets every 4 hours as needed pain PT/OT/speech CV: Chronic diastolic heart failure, with exacerbation ejection fraction 45-50% recurrent atrial fibrillation with rapid ventricular response s/p PEA arrest 01/07 Status post ablation for A. fib/flutter Hypertension Dyslipidemia IV metoprolol 2.5 mg every 6 hours as needed for heart rate more than 120 Continue amiodarone 200 mg by mouth daily, restart amiodarone infusion if HR > 120 persistently Received IV digoxin and IV metoprolol 01/14 digoxin 0.125 mg p.o. daily Start Cardizem 30 mg p.o. every 6 hours. Holding diltiazem 240 mg p.o. daily/ home medication Continue atorvastatin 40 mg p.o. daily for his lipidemia At home on fish oil/cholecalciferol 1200/1000 1 tablet twice daily/home medication Holding ramipril 5 mg p.o. daily for hypertension with acute kidney injury Dr. Ramirez evaluated no further plans at this time aggressive replacement of electrolytes, targeting K > 4.5, Mg > 2.5 Off Lasix GTT. On scheduled Lasix 40 IV every 12, s/p Diamox 400 mg IV 1 Resp: Acute hypoxic and hypercarbic respiratory failure MUNA -nocturnal CPAP 8 cm H2O Moderate right pleural effusion Extubated 01/02. reintubated 01/07 during PEA arrest, extubated again 01/12/18 wean fio2 for goal spo2 > 90% Hob elevated, nebs Forced diuresis as above EzPAP, Acapella GI: Gastroesophageal reflux disease Elevated transaminases Ileus Sigmoid diverticulosis Internal/external hemorrhoids DC IV Protonix, placed on lansoprazole via NG tube NPO per speech, continue NG tube feeding Docusate sodium/senna 1 tablet twice daily for bowel regimen with polyethylene glycol 17 g twice daily and lactulose 30 cc 4 times daily Follow transaminases intermittently is likely congestion. Further workup and On metoclopramide 5 mg IV every 8 hours and erythromycin 250 every 8 hours KUB reveals small bowel/transverse and descending colon air filled loops CT abdomen/pelvis revealed dilated small and large bowel. Colonoscopy by Dr. Bella/revealed sigmoid diverticulosis. Decompression of colon. Internal and external hemorrhoids. : BPH/overflow d/c fowler. Continue doxazosin 4 mg daily and bethanechol 25 mg daily Lasix as above Endo: Diabetes mellitus Hypothyroidism Low testosterone Currently on insulin detemir 4 units twice daily with NovoLog sliding scale insulin/low regimen before meals at bedtime At home on insulin glargine 12 units twice daily with sliding scale insulin Continue levothyroxine 125 mcg p.o. daily. TSH 3.06 Holding testosterone Renal: Acute kidney injury likely secondary to cardiorenal syndrome Renal cyst right 2.2 cm Followed by nephrology. Monitor urine output Accurate I's and O's. Renal ultrasound with no hydronephrosis. Right renal cyst 2.2 cm. Rare eosinophils urine. Heme: Chronic apixaban use Normocytic normochromic anemia Currently renally dose of 2.5 mg twice daily. Resumed 4/4 a.m. Monitor CBC daily. Follow trends ID: Probable pneumonia/E. coli in sputum Azactam started for E. coli in sputum Monitor for infection F/u sputum culture FEN: Hypokalemia Hypophosphatemia Replace electrolytes as clinically indicated MSK: Osteoporosis/osteoarthritis PT evaluate and treat Access - central line placed 01/07 post cardiac arrest: d/c today. - Lupe: d/c today. Prophylaxis -GI -Lansoprazole -DVT -SCD/apixaban Eduardo Diaz MD Jan 16, 2018 19:25
[2018-01-16] MEDS: PRAMIPEXOLE DIHYDROCHLORIDE 0.25 MG TAB PO SCH (22:41)
[2018-01-16] MEDS: ATORVASTATIN 40 MG TAB PO SCH (22:42)
[2018-01-16] MEDS: DOXAZOSIN MESYLATE 4 MG TAB PO SCH (22:42)
[2018-01-17] VITALS (12 sets, daily range): BP systolic 103–136; BP diastolic 62–79; PULSE 50–119; RESP 16–22; TEMP 97.4–98.2; O2SAT 95–98
[2018-01-17] MEDS: RESP: ALBUTEROL 2.5 MG/IPRATROPIUM 0.5 MG NEB (SCH) NEB ×7 (01:03→23:59)
[2018-01-17] MEDS: DILTIAZEM HCL 30 MG TAB PO SCH ×4 (04:02→20:54)
[2018-01-17] MEDS: AZTREONAM INJ 1,000 MG in SODIUM CHLORIDE 0.9% INJ 100 ML IV SCH ×3 (05:59→20:55)
[2018-01-17] MEDS: LEVOTHYROXINE SODIUM 125 MCG TAB PO SCH (06:06)
[2018-01-17] MEDS: ERYTHROMYCIN EC 250 MG TABEC PO SCH ×3 (06:06→20:53)
[2018-01-17] MEDS: METOCLOPRAMIDE HCL 10 MG/2 ML VIAL IV PUSH SCH ×4 (06:06→20:53)
[2018-01-17 06:34] LABS: HEMATOCRIT 35.4 % (39.0-51.0); HEMOGLOBIN 11.1 GM/DL (13.0-17.0); MEAN CELL VOLUME 82.7 FL (80.0-100.0); MEAN CORPUSCULAR HEMOGLOBIN 25.9 PG (27.0-34.0); MEAN CORPUSCULAR HGB CONC 31.3 % (32.0-36.0); MEAN PLATELET VOLUME 9.1 FL (7.0-11.0); PLATELET COUNT 313 TH/MM3 (150-450); RED BLOOD COUNT 4.28 MIL/MM3 (4.50-5.90); RED CELL DISTRIBUTION WIDTH 21.3 % (11.6-17.2); WHITE BLOOD COUNT 8.3 TH/MM3 (4.0-11.0)
[2018-01-17 06:53] LABS: CALCIUM 8.7 MG/DL (8.5-10.1); CREATININE 1.8 MG/DL (0.60-1.30)
[2018-01-17] MEDS: CHLORHEXIDINE 0.12% (ORAL KIT) 15 ML CUP MT SCH ×2 (08:00→20:00)
[2018-01-17] MEDS: DOCUSATE SODIUM 50 MG/SENNA 8.6 MG TAB PO SCH ×2 (09:00→20:53)
[2018-01-17] MEDS: LACTULOSE SYRUP 20 GM/30 ML CUP PO SCH ×4 (09:00→21:00)
[2018-01-17] MEDS: INSULIN DETEMIR 100 UNITS/ML VIAL SQ SCH ×2 (09:44→20:54)
[2018-01-17] MEDS: SODIUM CHLORIDE 0.9% FLUSH 10 ML FLUSH IV FLUSH SCH ×2 (09:45→20:51)
[2018-01-17] MEDS: INSULIN ASPART SUPPLEMENTAL SCALE SQ SCH ×4 (09:45→23:01)
[2018-01-17] MEDS: POLYETHYLENE GLYCOL 17 GM PKG PO SCH ×2 (09:47→20:54)
[2018-01-17] MEDS: ALLOPURINOL 100 MG TAB PO SCH (09:49)
[2018-01-17] MEDS: SERTRALINE HCL 50 MG TAB PO SCH ×2 (09:50→20:54)
[2018-01-17] MEDS: POTASSIUM BICARBONATE 25 MEQ EFFERVESCENT TAB NG SCH ×2 (09:50→20:53)
[2018-01-17] MEDS: APIXABAN 2.5 MG TABLET PO SCH ×2 (09:51→20:54)
[2018-01-17] MEDS: LANSOPRAZOLE SOLUTAB 30 MG TAB NG SCH (09:51)
[2018-01-17] MEDS: DIGOXIN SOLUTION 0.125 MG/2.5 ML CUP PO SCH (09:53)
[2018-01-17] MEDS: BETHANECHOL CHL 25 MG TAB PO SCH (09:54)
--- NOTE | 2018-01-17 10:31 | HHI.NPPN ---
Subjective History of Present Illness 72 year old male with Chf/Atrial tachycardia/Afib admitted with Tachyarrhythmia Interval History Renal function is stable. Objective Data Data Vital Signs Date Time Temp Pulse Resp B/P (MAP) Pulse Ox O2 Delivery O2 Flow Rate FiO2 01/17/18 08:42 95 Nasal Cannula 3.00 01/17/18 06:02 97.4 116 22 127/70 (89) 98 01/17/18 04:30 115 01/17/18 01:22 97.9 50 20 136/62 (86) 97 01/17/18 00:30 116 01/16/18 21:15 96 Nasal Cannula 3.00 01/16/18 21:13 Nasal Cannula 2.00 01/16/18 20:30 103 01/16/18 20:00 97.7 73 18 126/73 (90) 96 01/16/18 17:10 Nasal Cannula 2.00 01/16/18 17:04 98.0 103 22 128/68 (88) 97 01/16/18 16:00 94 01/16/18 16:00 98.6 94 21 117/67 (84) 98 01/16/18 14:00 104 01/16/18 12:00 115 01/16/18 12:00 98.6 115 12 132/72 (92) 94 -: 01/17/18 0559 01/17/18 0559 Physical Exam General Appearance: Well Developed, Well Nourished, No Acute Distress, Comfortable Neck Neck Exam: Neck Supple Pulmonary Resp Exam: No Distress, Crackles, Rhonchi, Decreased Bases, Diminished Breath Sounds Cardiology CV Exam: Arrhythmia Gastrointestinal/Abdomen GI Exam: Soft, Non-Tender, Bowel Sounds Present Extremeties Extremities Exam: Moderate Edema, Pitting Edema Neurologic Neuro Exam: Alert, Awake Assessment/Plan Problem List: (1) Acute renal failure ICD Codes: N17.9 - Acute kidney failure, unspecified Status: Acute Plan: Patient had cardiogenic shock and low blood pressure contributing, and cardiorenal syndrome Plan is to cardiovert him once he is stable on Eliquis He has underlying tachyarrhythmia Atrial fibrillation/atrial tachycardia s/p cardiac Ablation Stable renal function. Hypernatremia is noted, likely due to loop diuretic. (2) Chronic kidney disease, stage III (moderate) ICD Codes: N18.3 - Chronic kidney disease, stage III (moderate) Status: Acute Plan: Baseline care around 1.7 (3) Congestive heart failure ICD Codes: I50.9 - Heart failure, unspecified Status: Acute Plan: He is in cardiogenic shock low blood pressure causing the cardiorenal syndrome (4) PAF (paroxysmal atrial fibrillation) ICD Codes: I48.0 - Paroxysmal atrial fibrillation Plan: Cardiology was following (5) Diabetes ICD Codes: E11.9 - Diabetes Status: Chronic Plan: Monitor blood glucose (6) Acute on chronic systolic CHF (congestive heart failure) ICD Codes: I50.23 - Acute on chronic systolic (congestive) heart failure Problem Qualifiers (1) Acute renal failure: Qualified Codes: N17.8 - Other acute kidney failure (2) Congestive heart failure: Qualified Codes: I50.9 - Heart failure, unspecified Noel Miller MD Jan 17, 2018 10:31
[2018-01-17] MEDS: AMIODARONE 200 MG TAB PO SCH (13:14)
[2018-01-17] MEDS: oxyCODONE/ACETAMINOPHEN 5 MG/325 MG TAB PO PRN (20:52)
[2018-01-17] MEDS: DOXAZOSIN MESYLATE 4 MG TAB PO SCH (20:53)
[2018-01-17] MEDS: ATORVASTATIN 40 MG TAB PO SCH (20:53)
--- NOTE | 2018-01-17 20:57 | HHI.PR ---
Subjective Remarks Patient is awake. Oriented to self only. Confused but follow commands. Objective Vitals Vital Signs Date Time Temp Pulse Resp B/P (MAP) Pulse Ox O2 Delivery O2 Flow Rate FiO2 01/17/18 16:00 118 01/17/18 16:00 98.2 101 18 127/63 (84) 98 01/17/18 14:34 119 20 120/67 (84) 01/17/18 13:19 108 01/17/18 08:42 95 Nasal Cannula 3.00 01/17/18 08:30 Nasal Cannula 2.00 01/17/18 08:00 97.7 93 16 103/70 (81) 97 01/17/18 07:59 104 01/17/18 06:02 97.4 116 22 127/70 (89) 98 01/17/18 04:30 115 01/17/18 01:22 97.9 50 20 136/62 (86) 97 01/17/18 00:30 116 01/16/18 21:15 96 Nasal Cannula 3.00 01/16/18 21:13 Nasal Cannula 2.00 I/O 01/16/18 01/16/18 01/16/18 01/17/18 01/17/18 01/17/18 07:00 15:00 23:00 07:00 15:00 23:00 Intake Total 760 ml 100 ml Output Total 775 ml 1000 ml 850 ml 600 ml Balance -15 ml -1000 ml -850 ml -500 ml IV Total 100 ml 100 ml Tube Feeding 360 ml Tube Irrigant 300 ml Output Urine Total 775 ml 1000 ml 850 ml 600 ml # Bowel Movements 1 1 Result Diagram: 01/17/18 0559 01/17/18 0559 Objective Remarks GENERAL: Morbidly obese male in no acute distress. CARDIOVASCULAR: Normal rate and regular rhythm without murmurs, gallops, or rubs. Bilateral lower extremity with trace edema RESPIRATORY: Bilateral basilar crackles. Upper lung hernández are clear to auscultation. GASTROINTESTINAL: Abdomen morbidly obese. Nontender. No guarding NEUROLOGICAL: Awake, alert to self only. A/P Problem List: (1) Acute on chronic systolic CHF (congestive heart failure) ICD Code: I50.23 - Acute on chronic systolic (congestive) heart failure (2) PAF (paroxysmal atrial fibrillation) ICD Code: I48.0 - Paroxysmal atrial fibrillation (3) Acute kidney injury superimposed on chronic kidney disease ICD Code: N17.9 - Acute kidney failure, unspecified; N18.9 - Chronic kidney disease, unspecified (4) Hypothyroidism ICD Code: E03.9 - Hypothyroidism Status: Acute (5) Diabetes ICD Code: E11.9 - Diabetes Status: Chronic (6) Hyperkalemia ICD Code: E87.5 - Hyperkalemia Status: Acute Assessment and Plan 72-year-old male admitted to [facility] with RVR. Patient underwent cardiac ablation, respiratory failure postoperatively he was intubated. Status post PEA arrest. Concern for aspiration event. Patient was extubated. Prolonged ICU course. He has been downgraded to the floor. Acute hypoxic and hypercarbic respiratory failure MUNA -nocturnal CPAP 8 cm H2O Moderate right pleural effusion Extubated 01/02. reintubated 01/07 during PEA arrest, extubated again 01/12/18 wean fio2 for goal spo2 > 90% Hob elevated, nebs EzPAP, Acapella Chronic diastolic heart failure, with exacerbation ejection fraction 45-50% recurrent atrial fibrillation with rapid ventricular response s/p PEA arrest 01/07 Status post ablation for A. fib/flutter Hypertension Dyslipidemia Continue amiodarone 200 mg by mouth daily Received IV digoxin and IV metoprolol 01/14 digoxin 0.125 mg p.o. daily Continue Cardizem 30 mg p.o. every 6 hours. Holding diltiazem 240 mg p.o. daily/ home medication Continue atorvastatin 40 mg p.o. daily for his lipidemia At home on fish oil/cholecalciferol 1200/1000 1 tablet twice daily/home medication Holding ramipril 5 mg p.o. daily for hypertension with acute kidney injury Dr. Ramirez evaluated no further plans at this time Blood pressure too low this morning to tolerate Lasix. Hold Lasix today, consider resuming Lasix orally tomorrow if blood pressure can tolerate. Depression/anxiety Chronic narcotic use continue sertraline 50 mg twice daily/home medication for depression Continue pramipexole 0.5 mg p.o. daily for extrapyramidal side effects Currently holding buspirone 5 mg 3 times daily anxiety On oxycodone/acetaminophen 5/325 1 - 2 tablets every 4 hours as needed pain PT/OT/speech Gastroesophageal reflux disease Elevated transaminases Ileus Sigmoid diverticulosis Internal/external hemorrhoids Advance diet per speech therapy recommendations. If he can tolerate a diet, plan to discontinue NGT. Docusate sodium/senna 1 tablet twice daily for bowel regimen with polyethylene glycol 17 g twice daily and lactulose 30 cc 4 times daily Follow transaminases intermittently is likely congestion. Further workup and On metoclopramide 5 mg IV every 8 hours and erythromycin [address] abdomen/pelvis revealed dilated small and large bowel. Colonoscopy by Dr. Bella/revealed sigmoid diverticulosis. Decompression of colon. Internal and external hemorrhoids. BPH/overflow Continue doxazosin 4 mg daily and bethanechol 25 mg daily Diabetes mellitus Hypothyroidism Low testosterone Currently on insulin detemir 4 units twice daily with NovoLog sliding scale insulin/low regimen before meals at bedtime At home on insulin glargine 12 units twice daily with sliding scale insulin Continue levothyroxine 125 mcg p.o. daily. TSH 3.06 Holding testosterone Acute kidney injury likely secondary to cardiorenal syndrome Renal cyst right 2.2 cm Followed by nephrology. Monitor urine output Accurate I's and O's. Renal ultrasound with no hydronephrosis. Right renal cyst 2.2 cm. Rare eosinophils urine. Chronic apixaban use Normocytic normochromic anemia Currently renally dose of 2.5 mg twice daily. Monitor CBC daily. Follow trends Probable pneumonia/E. coli in sputum Sensitivity profile noted. Switch to cefuroxime. Debility: - Secondary to comorbid conditions above. Patient will need SNF placement. Continue rehab efforts. Prophylaxis -GI -Lansoprazole -DVT -SCD/apixaban Discharge Planning Maynor Combs MD Jan 17, 2018 20:57
[2018-01-17] MEDS: PRAMIPEXOLE DIHYDROCHLORIDE 0.25 MG TAB PO SCH (23:01)
[2018-01-18] VITALS (7 sets, daily range): BP systolic 105–154; BP diastolic 55–76; PULSE 76–118; RESP 18–21; TEMP 97.1–97.6; O2SAT 94–98
[2018-01-18] MEDS: DILTIAZEM HCL 30 MG TAB PO SCH ×4 (03:29→22:08)
[2018-01-18 03:30] LABS: HEMATOCRIT 34.1 % (39.0-51.0); HEMOGLOBIN 10.9 GM/DL (13.0-17.0); MEAN CELL VOLUME 82.9 FL (80.0-100.0); MEAN CORPUSCULAR HEMOGLOBIN 26.4 PG (27.0-34.0); MEAN CORPUSCULAR HGB CONC 31.8 % (32.0-36.0); PLATELET COUNT 296 TH/MM3 (150-450); RED BLOOD COUNT 4.12 MIL/MM3 (4.50-5.90); RED CELL DISTRIBUTION WIDTH 21.3 % (11.6-17.2); WHITE BLOOD COUNT 8.5 TH/MM3 (4.0-11.0)
[2018-01-18 03:52] LABS: BICARBONATE 31.9 MEQ/L (21.0-32.0); CALCIUM 8.4 MG/DL (8.5-10.1); CREATININE 1.65 MG/DL (0.60-1.30)
[2018-01-18] MEDS: RESP: ALBUTEROL 2.5 MG/IPRATROPIUM 0.5 MG NEB (SCH) NEB ×3 (04:03→13:25)
[2018-01-18] MEDS: ERYTHROMYCIN EC 250 MG TABEC PO SCH ×3 (05:55→22:08)
[2018-01-18] MEDS: LEVOTHYROXINE SODIUM 125 MCG TAB PO SCH (05:55)
[2018-01-18] MEDS: METOCLOPRAMIDE HCL 10 MG/2 ML VIAL IV PUSH SCH ×3 (05:55→22:00)
[2018-01-18] MEDS: oxyCODONE/ACETAMINOPHEN 5 MG/325 MG TAB PO PRN ×3 (05:58→22:08)
[2018-01-18] MEDS: CHLORHEXIDINE 0.12% (ORAL KIT) 15 ML CUP MT SCH ×2 (08:00→20:00)
[2018-01-18] MEDS: LANSOPRAZOLE SOLUTAB 30 MG TAB NG SCH (10:08)
[2018-01-18] MEDS: AMIODARONE 200 MG TAB PO SCH (10:08)
[2018-01-18] MEDS: ALLOPURINOL 100 MG TAB PO SCH (10:08)
[2018-01-18] MEDS: POLYETHYLENE GLYCOL 17 GM PKG PO SCH ×2 (10:09→22:10)
[2018-01-18] MEDS: APIXABAN 2.5 MG TABLET PO SCH ×2 (10:09→21:00)
[2018-01-18] MEDS: POTASSIUM BICARBONATE 25 MEQ EFFERVESCENT TAB NG SCH ×2 (10:09→22:09)
[2018-01-18] MEDS: SERTRALINE HCL 50 MG TAB PO SCH ×2 (10:09→22:09)
[2018-01-18] MEDS: LACTULOSE SYRUP 20 GM/30 ML CUP PO SCH ×4 (10:09→21:00)
[2018-01-18] MEDS: BETHANECHOL CHL 25 MG TAB PO SCH (10:09)
[2018-01-18] MEDS: DOCUSATE SODIUM 50 MG/SENNA 8.6 MG TAB PO SCH ×2 (10:09→22:10)
[2018-01-18] MEDS: CEFUROXIME AXETIL 500 MG TAB PO SCH ×2 (10:09→22:09)
[2018-01-18] MEDS: DIGOXIN SOLUTION 0.125 MG/2.5 ML CUP PO SCH (10:10)
[2018-01-18] MEDS: INSULIN ASPART SUPPLEMENTAL SCALE SQ SCH ×4 (10:12→22:09)
[2018-01-18] MEDS: INSULIN DETEMIR 100 UNITS/ML VIAL SQ SCH ×2 (10:12→22:10)
[2018-01-18] MEDS: SODIUM CHLORIDE 0.9% FLUSH 10 ML FLUSH IV FLUSH SCH ×2 (10:12→22:10)
--- NOTE | 2018-01-18 12:21 | HHI.NPPN ---
Subjective History of Present Illness 72 year old male with Chf/Atrial tachycardia/Afib admitted with Tachyarrhythmia Interval History Lethargic, some confusion is noted. Patient's renal function has improved. Objective Data Data Vital Signs Date Time Temp Pulse Resp B/P (MAP) Pulse Ox O2 Delivery O2 Flow Rate FiO2 01/18/18 10:53 16 01/18/18 09:55 95 Nasal Cannula 2.00 01/18/18 08:00 97.3 104 18 129/68 (88) 96 01/18/18 04:00 96 01/18/18 04:00 97.3 100 20 116/66 (83) 94 01/18/18 00:00 107 01/18/18 00:00 97.1 95 21 131/73 (92) 98 01/17/18 21:05 98 Nasal Cannula 3.00 01/17/18 20:50 Nasal Cannula 2.00 01/17/18 20:00 116 01/17/18 20:00 97.9 94 20 106/79 (88) 97 01/17/18 16:00 118 01/17/18 16:00 98.2 101 18 127/63 (84) 98 01/17/18 14:34 119 20 120/67 (84) 01/17/18 13:19 108 -: 01/18/18 0320 01/18/18 0320 Physical Exam General Appearance: Well Developed, Well Nourished, No Acute Distress, Comfortable Neck Neck Exam: Neck Supple Pulmonary Resp Exam: No Distress, Crackles, Rhonchi, Decreased Bases, Diminished Breath Sounds Cardiology CV Exam: Arrhythmia Gastrointestinal/Abdomen GI Exam: Soft, Non-Tender, Bowel Sounds Present Extremeties Extremities Exam: Moderate Edema, Pitting Edema Neurologic Neuro Exam: Alert, Awake Assessment/Plan Problem List: (1) Acute renal failure ICD Codes: N17.9 - Acute kidney failure, unspecified Status: Acute Plan: Patient had cardiogenic shock and low blood pressure contributing, and cardiorenal syndrome Plan is to cardiovert him once he is stable on Eliquis He has underlying tachyarrhythmia Atrial fibrillation/atrial tachycardia s/p cardiac Ablation Stable renal function. Hypernatremia is noted, likely due to loop diuretic. Change Lasix to PO. Needs free water. (2) Chronic kidney disease, stage III (moderate) ICD Codes: N18.3 - Chronic kidney disease, stage III (moderate) Status: Acute Plan: Baseline care around 1.7 (3) Congestive heart failure ICD Codes: I50.9 - Heart failure, unspecified Status: Acute Plan: He is in cardiogenic shock low blood pressure causing the cardiorenal syndrome (4) PAF (paroxysmal atrial fibrillation) ICD Codes: I48.0 - Paroxysmal atrial fibrillation Plan: Cardiology was following (5) Diabetes ICD Codes: E11.9 - Diabetes Status: Chronic Plan: Monitor blood glucose (6) Acute on chronic systolic CHF (congestive heart failure) ICD Codes: I50.23 - Acute on chronic systolic (congestive) heart failure Problem Qualifiers (1) Acute renal failure: Qualified Codes: N17.8 - Other acute kidney failure (2) Congestive heart failure: Qualified Codes: I50.9 - Heart failure, unspecified Noel Miller MD Jan 18, 2018 12:21
--- NOTE | 2018-01-18 13:19 | HHI.PR ---
Subjective Remarks Patient is still lethargic and confused. He is not eating. Objective Vitals Vital Signs Date Time Temp Pulse Resp B/P (MAP) Pulse Ox O2 Delivery O2 Flow Rate FiO2 01/18/18 10:53 16 01/18/18 09:55 95 Nasal Cannula 2.00 01/18/18 08:00 97.3 104 18 129/68 (88) 96 01/18/18 04:00 96 01/18/18 04:00 97.3 100 20 116/66 (83) 94 01/18/18 00:00 107 01/18/18 00:00 97.1 95 21 131/73 (92) 98 01/17/18 21:05 98 Nasal Cannula 3.00 01/17/18 20:50 Nasal Cannula 2.00 01/17/18 20:00 116 01/17/18 20:00 97.9 94 20 106/79 (88) 97 01/17/18 16:00 118 01/17/18 16:00 98.2 101 18 127/63 (84) 98 01/17/18 14:34 119 20 120/67 (84) I/O 01/17/18 01/17/18 01/17/18 01/18/18 01/18/18 01/18/18 07:00 15:00 23:00 07:00 15:00 23:00 Intake Total 200 ml 0 ml Output Total 850 ml 600 ml 850 ml Balance -850 ml -400 ml -850 ml Intake Oral 0 ml IV Total 200 ml Output Urine Total 850 ml 600 ml 850 ml # Bowel Movements 1 0 Result Diagram: 01/18/18 0320 01/18/18 0320 Objective Remarks GENERAL: Morbidly obese male in no acute distress. CARDIOVASCULAR: Normal rate and regular rhythm without murmurs, gallops, or rubs. Bilateral lower extremity with trace edema RESPIRATORY: Bilateral basilar crackles. Upper lung hernández are clear to auscultation. GASTROINTESTINAL: Abdomen morbidly obese. Nontender. No guarding NEUROLOGICAL: Awake, alert to self only. A/P Problem List: (1) Acute on chronic systolic CHF (congestive heart failure) ICD Code: I50.23 - Acute on chronic systolic (congestive) heart failure (2) PAF (paroxysmal atrial fibrillation) ICD Code: I48.0 - Paroxysmal atrial fibrillation (3) Acute kidney injury superimposed on chronic kidney disease ICD Code: N17.9 - Acute kidney failure, unspecified; N18.9 - Chronic kidney disease, unspecified (4) Hypothyroidism ICD Code: E03.9 - Hypothyroidism Status: Acute (5) Diabetes ICD Code: E11.9 - Diabetes Status: Chronic (6) Hyperkalemia ICD Code: E87.5 - Hyperkalemia Status: Acute Assessment and Plan 72-year-old male admitted to [facility] with RVR. Patient underwent cardiac ablation, respiratory failure postoperatively he was intubated. Status post PEA arrest. Concern for aspiration event. Patient was extubated. Prolonged ICU course. He has been downgraded to the floor. Acute hypoxic and hypercarbic respiratory failure MUNA -nocturnal CPAP 8 cm H2O Moderate right pleural effusion Extubated 01/02. reintubated 01/07 during PEA arrest, extubated again 01/12/18 wean fio2 for goal spo2 > 90% Nebs as needed EzPAP, Acapella Chronic diastolic heart failure, with exacerbation ejection fraction 45-50% recurrent atrial fibrillation with rapid ventricular response s/p PEA arrest 01/07 Status post ablation for A. fib/flutter Hypertension Dyslipidemia Continue amiodarone 200 mg by mouth daily Received IV digoxin and IV metoprolol 01/14 digoxin 0.125 mg p.o. daily Continue Cardizem 30 mg p.o. every 6 hours. Holding diltiazem 240 mg p.o. daily/ home medication Continue atorvastatin 40 mg p.o. daily for his lipidemia At home on fish oil/cholecalciferol 1200/1000 1 tablet twice daily/home medication Holding ramipril 5 mg p.o. daily for hypertension with acute kidney injury Dr. Ramirez evaluated no further plans at this time Blood pressure too low this morning to tolerate Lasix. Hold Lasix today, consider resuming Lasix orally tomorrow if blood pressure can tolerate. Encephalopathy,? Anoxic injury: Depression/anxiety Chronic narcotic use continue sertraline 50 mg twice daily/home medication for depression Continue pramipexole 0.5 mg p.o. daily for extrapyramidal side effects Currently holding buspirone 5 mg 3 times daily anxiety On oxycodone/acetaminophen 5/325 1 - 2 tablets every 4 hours as needed pain PT/OT/speech He remained encephalopathic Gastroesophageal reflux disease Elevated transaminases Ileus Sigmoid diverticulosis Internal/external hemorrhoids Advance diet per speech therapy recommendations. Not tolerating enough p.o. nutrition yet. Continue NGT. If no improvement, will need to discuss with family regarding permanent tube feeding. Docusate sodium/senna 1 tablet twice daily for bowel regimen with polyethylene glycol 17 g twice daily and lactulose 30 cc 4 times daily Follow transaminases intermittently is likely congestion. Further workup and On metoclopramide 5 mg IV every 8 hours and erythromycin [address] abdomen/pelvis revealed dilated small and large bowel. Colonoscopy by Dr. Bella/revealed sigmoid diverticulosis. Decompression of colon. Internal and external hemorrhoids. BPH/overflow Continue doxazosin 4 mg daily and bethanechol 25 mg daily Diabetes mellitus Hypothyroidism Low testosterone Currently on insulin detemir 4 units twice daily with NovoLog sliding scale insulin/low regimen before meals at bedtime At home on insulin glargine 12 units twice daily with sliding scale insulin Continue levothyroxine 125 mcg p.o. daily. TSH 3.06 Holding testosterone Acute kidney injury likely secondary to cardiorenal syndrome Renal cyst right 2.2 cm Followed by nephrology. Monitor urine output Accurate I's and O's. Renal ultrasound with no hydronephrosis. Right renal cyst 2.2 cm. Rare eosinophils urine. Oral Lasix per nephrology. Hyponatremia: - Need free water. Ordered through G-tube 200 mL every 6 hours. Chronic apixaban use Normocytic normochromic anemia Currently renally dose of 2.5 mg twice daily. Monitor CBC daily. Follow trends Probable pneumonia/E. coli in sputum Sensitivity profile noted. Switch to cefuroxime. Debility: - Secondary to comorbid conditions above. Patient will need SNF placement. Continue rehab efforts. Prophylaxis -GI -Lansoprazole -DVT -SCD/apixaban Discharge Planning Maynor Combs MD Jan 18, 2018 13:19
[2018-01-18] MEDS: FREE WATER G-TUBE SCH (18:32)
[2018-01-18] MEDS: DOXAZOSIN MESYLATE 4 MG TAB PO SCH (22:07)
[2018-01-18] MEDS: ATORVASTATIN 40 MG TAB PO SCH (22:08)
[2018-01-18] MEDS: PRAMIPEXOLE DIHYDROCHLORIDE 0.25 MG TAB PO SCH (22:08)
[2018-01-19] VITALS (11 sets, daily range): BP systolic 101–147; BP diastolic 63–98; PULSE 56–105; RESP 18–20; TEMP 97.5–98; O2SAT 92–98
[2018-01-19] MEDS: DILTIAZEM HCL 30 MG TAB PO SCH ×4 (03:00→22:12)
[2018-01-19] MEDS: METOCLOPRAMIDE HCL 10 MG/2 ML VIAL IV PUSH SCH ×3 (05:45→22:13)
[2018-01-19] MEDS: LEVOTHYROXINE SODIUM 125 MCG TAB PO SCH (05:45)
[2018-01-19] MEDS: ERYTHROMYCIN EC 250 MG TABEC PO SCH ×3 (05:45→22:12)
[2018-01-19] MEDS: FREE WATER G-TUBE SCH ×5 (05:46→23:33)
[2018-01-19 07:35] LABS: HEMATOCRIT 35.1 % (39.0-51.0); HEMOGLOBIN 11.1 GM/DL (13.0-17.0); MEAN CELL VOLUME 83.2 FL (80.0-100.0); MEAN CORPUSCULAR HEMOGLOBIN 26.2 PG (27.0-34.0); MEAN CORPUSCULAR HGB CONC 31.5 % (32.0-36.0); MEAN PLATELET VOLUME 9.1 FL (7.0-11.0); PLATELET COUNT 301 TH/MM3 (150-450); RED BLOOD COUNT 4.22 MIL/MM3 (4.50-5.90); RED CELL DISTRIBUTION WIDTH 20.9 % (11.6-17.2); WHITE BLOOD COUNT 9.5 TH/MM3 (4.0-11.0)
[2018-01-19 07:56] LABS: BICARBONATE 31.5 MEQ/L (21.0-32.0); CALCIUM 8.8 MG/DL (8.5-10.1); CREATININE 1.53 MG/DL (0.60-1.30)
[2018-01-19] MEDS: CHLORHEXIDINE 0.12% (ORAL KIT) 15 ML CUP MT SCH ×2 (08:00→20:00)
[2018-01-19] MEDS: SODIUM CHLORIDE 0.9% FLUSH 10 ML FLUSH IV FLUSH SCH ×2 (09:00→22:13)
[2018-01-19] MEDS: DOCUSATE SODIUM 50 MG/SENNA 8.6 MG TAB PO SCH ×2 (09:00→21:00)
[2018-01-19] MEDS: POLYETHYLENE GLYCOL 17 GM PKG PO SCH ×2 (09:00→21:00)
[2018-01-19] MEDS: LACTULOSE SYRUP 20 GM/30 ML CUP PO SCH ×4 (09:00→21:00)
[2018-01-19] MEDS: INSULIN ASPART SUPPLEMENTAL SCALE SQ SCH ×4 (09:05→21:00)
[2018-01-19] MEDS: SERTRALINE HCL 50 MG TAB PO SCH ×2 (09:06→22:12)
[2018-01-19] MEDS: FUROSEMIDE 40 MG TAB NG SCH (09:06)
[2018-01-19] MEDS: DIGOXIN SOLUTION 0.125 MG/2.5 ML CUP PO SCH (09:06)
[2018-01-19] MEDS: POTASSIUM BICARBONATE 25 MEQ EFFERVESCENT TAB NG SCH ×2 (09:06→22:13)
[2018-01-19] MEDS: LANSOPRAZOLE SOLUTAB 30 MG TAB NG SCH (09:06)
[2018-01-19] MEDS: APIXABAN 2.5 MG TABLET PO SCH ×2 (09:06→21:00)
[2018-01-19] MEDS: BETHANECHOL CHL 25 MG TAB PO SCH (09:07)
[2018-01-19] MEDS: ALLOPURINOL 100 MG TAB PO SCH (09:07)
[2018-01-19] MEDS: AMIODARONE 200 MG TAB PO SCH (09:08)
[2018-01-19] MEDS: CEFUROXIME AXETIL 500 MG TAB PO SCH ×2 (09:09→22:11)
[2018-01-19] MEDS: INSULIN DETEMIR 100 UNITS/ML VIAL SQ SCH ×2 (09:09→21:00)
[2018-01-19] MEDS: oxyCODONE/ACETAMINOPHEN 5 MG/325 MG TAB PO PRN ×2 (13:55→22:12)
[2018-01-19] MEDS ORDERED: LIDOCAINE HCL 5% OINT 37 GM TUBE TOPICAL PRN (15:15)
--- NOTE | 2018-01-19 15:19 | HHI.PR ---
Subjective Remarks Patient is still encephalopathic. He is not eating or drinking. Objective Vitals Vital Signs Date Time Temp Pulse Resp B/P (MAP) Pulse Ox O2 Delivery O2 Flow Rate FiO2 01/19/18 12:34 94 Nasal Cannula 2.00 01/19/18 11:45 97.8 103 20 101/63 (76) 95 01/19/18 07:44 94 21 01/19/18 07:35 97.5 95 20 114/74 (87) 95 01/19/18 04:00 Nasal Cannula 2.00 01/19/18 04:00 102 01/19/18 04:00 97.9 103 19 147/98 (114) 98 01/19/18 00:00 87 01/19/18 00:00 Nasal Cannula 2.00 01/19/18 00:00 97.9 56 20 123/72 (89) 97 01/18/18 20:00 118 01/18/18 20:00 97.4 106 20 154/76 (102) 94 01/18/18 20:00 Nasal Cannula 2.00 01/18/18 16:00 89 01/18/18 16:00 97.6 78 18 117/58 (77) 98 I/O 01/18/18 01/18/18 01/18/18 01/19/18 01/19/18 01/19/18 06:59 14:59 22:59 06:59 14:59 22:59 Intake Total 0 ml 749 ml 672 ml Output Total 850 ml 800 ml 500 ml Balance -850 ml -51 ml 172 ml Intake Oral 0 ml 120 ml 0 ml Tube Feeding 629 ml 272 ml Other 400 ml Output Urine Total 850 ml 800 ml 500 ml # Voids 4 # Bowel Movements 0 1 Result Diagram: 01/19/18 0601/19/18 06 Objective Remarks GENERAL: Morbidly obese male in no acute distress. CARDIOVASCULAR: Normal rate and regular rhythm without murmurs, gallops, or rubs. Bilateral lower extremity with trace edema RESPIRATORY: Bilateral basilar crackles. Upper lung hernández are clear to auscultation. GASTROINTESTINAL: Abdomen morbidly obese. Nontender. No guarding NEUROLOGICAL: Awake, alert to self only. A/P Problem List: (1) Acute on chronic systolic CHF (congestive heart failure) ICD Code: I50.23 - Acute on chronic systolic (congestive) heart failure (2) PAF (paroxysmal atrial fibrillation) ICD Code: I48.0 - Paroxysmal atrial fibrillation (3) Acute kidney injury superimposed on chronic kidney disease ICD Code: N17.9 - Acute kidney failure, unspecified; N18.9 - Chronic kidney disease, unspecified (4) Hypothyroidism ICD Code: E03.9 - Hypothyroidism Status: Acute (5) Diabetes ICD Code: E11.9 - Diabetes Status: Chronic (6) Hyperkalemia ICD Code: E87.5 - Hyperkalemia Status: Acute Assessment and Plan 72-year-old male admitted to [facility] with RVR. Patient underwent cardiac ablation, respiratory failure postoperatively he was intubated. Status post PEA arrest. Concern for aspiration event. Patient was extubated. Prolonged ICU course. He has been downgraded to the floor. 01/19: Patient remained encephalopathic, questionable anoxic injury. He has been getting feeding through an NG tube but he pulled that out today. Encourage nursing to try oral intake. If not reinsert NGT Consult palliative care to assist with goals of care. Acute hypoxic and hypercarbic respiratory failure MUNA -nocturnal CPAP 8 cm H2O Moderate right pleural effusion Extubated 01/02. reintubated 01/07 during PEA arrest, extubated again 01/12/18 wean fio2 for goal spo2 > 90% Nebs as needed EzPAP, Acapella Chronic diastolic heart failure, with exacerbation ejection fraction 45-50% recurrent atrial fibrillation with rapid ventricular response s/p PEA arrest 01/07 Status post ablation for A. fib/flutter Hypertension Dyslipidemia Continue amiodarone 200 mg by mouth daily Received IV digoxin and IV metoprolol 01/14 digoxin 0.125 mg p.o. daily Continue Cardizem 30 mg p.o. every 6 hours. Holding diltiazem 240 mg p.o. daily/ home medication Continue atorvastatin 40 mg p.o. daily for his lipidemia At home on fish oil/cholecalciferol 1200/1000 1 tablet twice daily/home medication Holding ramipril 5 mg p.o. daily for hypertension with acute kidney injury Dr. Ramirez evaluated no further plans at this time Blood pressure too low this morning to tolerate Lasix. Hold Lasix today, consider resuming Lasix orally tomorrow if blood pressure can tolerate. Encephalopathy,? Anoxic injury: Depression/anxiety Chronic narcotic use continue sertraline 50 mg twice daily/home medication for depression Continue pramipexole 0.5 mg p.o. daily for extrapyramidal side effects Currently holding buspirone 5 mg 3 times daily anxiety On oxycodone/acetaminophen 5/325 1 - 2 tablets every 4 hours as needed pain PT/OT/speech He remained encephalopathic Gastroesophageal reflux disease Elevated transaminases Ileus Sigmoid diverticulosis Internal/external hemorrhoids Advance diet per speech therapy recommendations. Not tolerating enough p.o. nutrition yet. Continue NGT. If no improvement, will need to discuss with family regarding permanent tube feeding. Docusate sodium/senna 1 tablet twice daily for bowel regimen with polyethylene glycol 17 g twice daily and lactulose 30 cc 4 times daily Follow transaminases intermittently is likely congestion. Further workup and On metoclopramide 5 mg IV every 8 hours and erythromycin [address] abdomen/pelvis revealed dilated small and large bowel. Colonoscopy by Dr. Bella/revealed sigmoid diverticulosis. Decompression of colon. Internal and external hemorrhoids. BPH/overflow Continue doxazosin 4 mg daily and bethanechol 25 mg daily Diabetes mellitus Hypothyroidism Low testosterone Currently on insulin detemir 4 units twice daily with NovoLog sliding scale insulin/low regimen before meals at bedtime At home on insulin glargine 12 units twice daily with sliding scale insulin Continue levothyroxine 125 mcg p.o. daily. TSH 3.06 Holding testosterone Acute kidney injury likely secondary to cardiorenal syndrome Renal cyst right 2.2 cm Followed by nephrology. Monitor urine output Accurate I's and O's. Renal ultrasound with no hydronephrosis. Right renal cyst 2.2 cm. Rare eosinophils urine. Oral Lasix per nephrology. Hyponatremia: - Need free water. Ordered through G-tube 200 mL every 6 hours. Chronic apixaban use Normocytic normochromic anemia Currently renally dose of 2.5 mg twice daily. Monitor CBC daily. Follow trends Probable pneumonia/E. coli in sputum Sensitivity profile noted. Switch to cefuroxime. Debility: - Secondary to comorbid conditions above. Patient will need SNF placement. Continue rehab efforts. Prophylaxis -GI -Lansoprazole -DVT -SCD/apixaban Discharge Planning Maynor Combs MD Jan 19, 2018 15:18
--- NOTE | 2018-01-19 15:40 | PD.WCN.NOT ---
Wound Consult Description: Received consult for wound management of sacral wound . Patient has tunneling wound pressure ulcer with foul odor. Communicated with: KELLIE ybarra and Doctor Garret Recommendation: 1.Please consult wound care physician for sharps debridement. 2. Please Cleanse wound to coccyx, R inner buttock and L inner buttock with normal saline only and pat dry., 3. Apply Santyl to Dakin's 0.125% moistened fluffed gauze and pack loosely to coccyx wound bed. 4. Apply Calazime skin protectant paste to periwound of coccyx. 5. Apply Santyl to Maxorb II and cover just wound bed of of bilateral inner buttock wounds. 6. Secure dressings to bilateral inner buttocks, and coccyx wounds with ABD pad and medfix tape. 7. Change dressing daily 8. Please keep patient turned and repositioned every 2 hours or as needed for comfort and offloading of pressure from raghavendra prominences Additional Information: Patient seen on for evaluation of wound management to sacral area.Patient able identify himself and verbalized date of . Ladinet had loose tape on nose and observed NG tube in bed with tube feeding drying on patient's skin. Called KELLIE hermosillo.Patient was turned with moderate assistance of underwriter solicitation director toward the L side for assessment.Removed adhesive foam dressing, and packing in place to reveal open wound to coccyx,L inner buttock and R inner buttock. Wound to coccyx presents with ~90% adherent yellow slough and ~10% pink tissue. Wound measures 5cm x 1.5cm x ~2.9cm with slough at base. 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 Wound has foul odor and minimal sero-sanguinous/green drainage. Periwound is erythematous, but blanchable. Wound margins are steep and well defined. L buttock wound presents as shallow full thickness wound with ~30% yellow slough and ~50% adipose and ~20% pink. Wound bed is moist with minimal serous drainage. Periwound is erythematous but blanchable. Wound measures 5.8cm x 4cm x slough. Wound margins are well defined but uneven. Wound to R inner buttock presents with ~20% yellow slough, ~50% adipose tissue and ~30% pink tissue.Wound bed is moist, with minimal drainage that is serous. Wound margins are uneven but well defined. Periwound is erythematous but blanchable.Wound measures 2.3cm x 1cm x slough. Cleansed all wounds with normal saline and patted dry. Applied Maxorb II( calcium alginate) packed loosely to coccyx wound bed. Covered Bilateral inner buttock wounds with maxorb II just over wound beds and not over intact skin. Sprayed periwound with Cavilon skin barrier film and covered with bordered gauze. Patient was positioned to R side with pillow in place for support. Patient was cleansed of tube feeding from skin with bath wipes. KELLIE hermosillo in room with patient when underwriter solicitation director left room. Isela Fried [facility] Jan 19, 2018 15:40
--- NOTE | 2018-01-19 16:29 | PD.CONS ---
Consult Service Palliative Care Consult Requested By Dr. Combs . Primary Care Physician Julian Hartman MD Reason for Consultation a. To assist with evaluation and management of symptoms including: b. To assist medical decision maker(s) with: better understanding of current medical conditions; weighing benefits/burdens of medical treatment options; making medical treatment decisions. HPI History of Present Illness This 72 year old man presented to the ED via EMS on 12/28 for c/o shortness of breath. He reported recently being hospitalized for similar symptoms. He was discharged home and had not yet followed up with primary MD or cardiology. He reported over the last several weeks with increasing shortness of breath progressive over the 2 days prior to presentation. Also reporting orthopnea and dyspnea on exertion. No history of sleep apnea. Also reporting increased edema to lower extremities x a few days. Denies chest pain, nausea, vomiting or abdominal pain. * CXR notable for bilateral hazy opacity consistent with pulmonary edema. EKG right bundle branch block. Possible ectopic atrial tachycardia. Troponin elevated 0.6. Creatinine elevated 2.85, patient noted with chronic kidney disease previously elevated troponins. Treated with Lasix in the ED, BiPAP. Hyperkalemic potassium 6.2. Patient was admitted for further evaluation and management of acute CHF, pulmonary edema. * Patient noted to medical attending he had been consuming a lot of fluid and not monitoring dietary intake. BNP 1300. 2D echo 4 months prior with EF 45-50% . Cardiology consulted. * Cardiology consulted; Dr. Garcia noted patient recently cardioverted and he is again back in atrial tachyarrhythmia. He will need another ablation. Feels shortness of breath is due to tachyarrhythmia. BNP 1300, will adjust anticoagulant for renal clearance, will follow. * Nephrology consulted for acute kidney failure-patient with cardiogenic shock low blood pressure contributing, follow BMP. * 12/31 underwent EP study w Dr Garcia, intubated for procedure, to ICU after for continued ventilator weaning. * 01/01 some agitation with sedation weaning. Weaning trials. 01/02 extubated, on BiPAP overnight. CXR with moderate right pleural effusion. May require thoracentesis. Possible ileus per CT. KUB = small bowel/transverse and descending colon air filled loops * 01/04 high NG tube output 1650. +bowel movement. Abdomen distended. BUN and creatinine slowly downtrending. * 01/05 GI consulted for ileus. Abdomen distended. Having nausea and vomiting. CT suggestive of ileus with dilated loops of small bowel ascending colon and transverse colon. Ordered for NG to low intermittent wall suction. Ordered for enema. If no BM may require decompressive colonoscopy. * 01/06 underwent colonoscopy with decompression. Moderate diverticulosis noted in sigmoid colon no bleeding. Colon distention, decompressed. * PEA arrest overnight 01/06- 01/07: intubated, central line placed. Back in A. fib RVR after arrest. Arrest felt could be secondary to aspiration, feculent material was suctioned out of airway post intubation. Started on amiodarone drip. Nephrology still following urine output decreased postcode. Will try Lasix drip. * 01/08 through 01/10 : having bowel movements. Weaning off of pressors. Unable to wean off ventilator yet. * 01/12 creatinine improving. Following commands. Lethargic. Extubated. * 01/14 difficulty clearing secretions. Tachypneic. Requiring frequent NG suctioning. CXR notes pulmonary vascular congestion. Ordered for additional IV Lasix. High risk for reintubation. Remains in ICU. * Patient transferred out of ICU. ST following tolerating mechanical soft diet, with honey consistency thickened liquids. She will will likely require SNF placement for rehabilitation after discharge. * 01/19 wound care consulted for sacral wound patient noted with tunneling ulcer , malodorous. Wound care recommended consult surgery for sharp debridement. Patient noted with wound to coccyx, left inner buttock and right inner buttock wound toxic is 5 by nearly 3 cm with tunneling and bone palpable per wound therapy evaluation. Left buttock with 5 x 4 cm wound, right buttock with wound. 01/19 palliative care consulted to assist with clarification of goals of treatment. Patient examined today no visitors present. Nurse present for part of my exam. Patient is lethargic though arouses to verbal. He is oriented to self and able to name [facility] however he does not answer other questions for me such as date of , does not appear to have insight as to why he is currently hospitalized. He does follow simple commands. For review of systems questioning he has significant delayed to answering, does not answer all questions and answers no for most of my questions. No apparent distress or pain. Ask who Corinna is he does not answer. I asked if he has family he says no. PT w several recent hospitalizations per Review of EMR: --12/02 through 12/08-for shortness of breath, atrial fibrillation underwent ablation with Dr. Garcia --08/07 through 08/12 NSTEMI During prior visits he is noted to be a poor historian though reports living at home independently with a live-in caregiver. Function/Cognitive Trajectory Her live-in caregiver patient cognitively sharp able to pay his own bills and drive prior to this admission. Required physical help around the house and caring for his cats, going to doctor's appointments etc. He has been having progressive dyspnea and weakness ongoing since his hospitalization last August. Review of Systems ROS Limitations: Poor Historian (Patient poor historian does not answer all my questions is that he does answers he states no) Constitutional: COMPLAINS OF: Weight loss (Weight loss during hospitalization per caregiver none prior to admission), DENIES: Pain Respiratory: DENIES: Shortness of breath Cardiovascular: COMPLAINS OF: Lower Extremity Edema (Edema prior to admission per caregiver), Orthopnea (Yes per caregiver ongoing), DENIES: Chest pain Gastrointestinal: DENIES: Nausea, Vomiting Psychiatric: COMPLAINS OF: Confusion (During hospitalization per caregiver) Past Family Social History Coded Allergies: penicillin G (Unverified Allergy, Severe, Hives, 12/28/17) Past Medical History Hypertension Type 2 diabetes Atrial fibrillation status post ablation on 11/10/17, cardioversion on 12/21 Sleep apnea Chronic kidney disease TIA Hypothyroidism CHF Past Surgical History Cholecystectomy Reported Medications Lantus Inj (Insulin Glargine) 1,000 Unit/10 Ml Vial 12 Units SQ BID 30 Days Diltiazem CD 24 HR 240 Mg Caper 240 Mg PO DAILY Amiodarone (Amiodarone HCl) 200 Mg Tab 200 Mg PO DAILY Eliquis (Apixaban) 5 Mg Tab 5 Mg PO BID Reported Buspirone (Buspirone HCl) 5 Mg Tab Unknown Dose PO TID Niacinamide 500 Mg Tab 500 Mg PO DAILY Novolog Inj (Insulin Aspart) 1,000 Unit/10 Ml Vial 0 SQ DIRECTED Sliding Scale as directed. Hydrocodone-Acetaminophen 7.5 Mg-325 Mg Tab 1 Tab PO Q6H PRN [Testosterone] Fish Oil + D3 (Fish Oil-Cholecalciferol) 1,200-1,000 Mg-Unit Cap 1 Cap PO DAILY Pramipexole (Pramipexole Dihydrochloride) 0.5 Mg Tab 0.5 Mg PO HS Atorvastatin (Atorvastatin Calcium) 40 Mg Tab 40 Mg PO HS Sertraline (Sertraline HCl) 50 Mg Tab 50 Mg PO BID Prilosec (Omeprazole Magnesium) 20 Mg Tab 20 Mg PO DAILY Levothyroxine (Levothyroxine Sodium) 125 Mcg Tab 125 Mcg PO DAILY Bethanechol 25 Mg Tab 25 Mg PO DAILY Doxazosin (Doxazosin Mesylate) 4 Mg Tab 4 Mg PO HS Allopurinol 100 Mg Tab 100 Mg PO DAILY Ramipril 5 Mg Cap 5 Mg PO DAILY . Current Medications Medications (Trade) Dose Ordered Sig/Az Route Start Time Stop Time Status Last Admin (D50w (Vial) Inj) 50 ml UNSCH PRN IV PUSH 12/28/17 07:00 01/04/18 06:48 (Glucagon Inj) 1 mg UNSCH PRN OTHER 12/28/17 07:00 (NS Flush) 2 ml UNSCH PRN IV FLUSH 12/28/17 07:00 01/07/18 05:32 (NS Flush) 2 ml BID IV FLUSH 12/28/17 09:00 01/18/18 22:10 (Tylenol) 650 mg Q6H PRN PO 12/28/17 07:00 (Delaney-Colace) 1 tab BID PO 12/28/17 09:00 01/18/18 22:10 (Senokot) 17.2 mg Q12H PRN PO 12/28/17 07:00 (Dulcolax Supp) 10 mg DAILY PRN RECTAL 12/28/17 07:00 (Cordarone) 200 mg DAILY PO 12/28/17 09:00 01/19/18 09:08 (Lipitor) 40 mg HS PO 12/28/17 21:00 01/18/18 22:08 (Cardura) 4 mg HS PO 12/28/17 21:00 01/18/18 22:07 (Synthroid) 125 mcg DAILY@0600 PO 12/28/17 07:00 01/19/18 05:45 (Zoloft) 50 mg BID PO 12/28/17 09:00 01/19/18 09:06 (Mirapex) 0.5 mg HS PO 12/28/17 21:00 01/18/18 22:08 (Percocet 5-325 Mg) 1 tab Q4H PRN PO 12/31/17 19:30 01/14/18 09:14 (Percocet 5-325 Mg) 2 tab Q4H PRN PO 12/31/17 19:30 01/19/18 13:55 (Atropine Inj) 0.5 mg UNSCH PRN IV PUSH 12/31/17 19:30 (Zofran Inj) 4 mg Q4H PRN IV PUSH 12/31/17 19:30 01/06/18 22:58 (Zyloprim) 100 mg DAILY PO 01/02/18 09:00 01/19/18 09:07 (Urecholine) 25 mg DAILY PO 01/02/18 09:00 01/19/18 09:07 Patient Own Medication PT OWN MED: NIACINAM... DAILY PO 01/02/18 09:00 Future Hold (Chloraseptic [place]) 2 spray Q2H PRN OROPHARYNG 01/01/18 12:00 (Miralax) 17 gm BID PO 01/02/18 09:00 01/18/18 22:10 (Lactulose Liq) 30 ml QID PO 01/02/18 09:00 01/18/18 18:27 (Reglan Inj) 5 mg Q8HR IV PUSH 01/02/18 14:00 01/19/18 05:45 (Erythromycin Ec) 250 mg Q8HR PO 01/05/18 16:00 01/19/18 13:56 (Eliquis) 2.5 mg BID PO 01/07/18 09:00 01/19/18 09:06 (Levemir Inj) 4 units BID SQ 01/06/18 21:00 01/19/18 09:09 (NovoLOG SUPPLEMENTAL SCALE) 1 ACHS SQ 01/06/18 21:00 01/19/18 13:55 (Peridex 0.12% Liq) 15 ml BID@08,20 MT 01/07/18 08:00 01/19/18 08:00 Propofol 100 ml @ 3.261 mls/ hr TITRATE PRN IV 01/07/18 00:15 01/11/18 23:50 (Effer-K Eff) 25 meq BID NG 01/08/18 21:00 01/19/18 09:06 (Duoneb Neb) 1 ampule Q2HR NEB PRN NEB 01/14/18 16:00 01/18/18 16:36 Esmolol HCl/ Sodium Chloride 250 ml @ 28.41 mls/ hr TITRATE PRN IV 01/14/18 17:30 (Lanoxin Liq) 0.125 mg DAILY PO 01/15/18 16:00 01/19/18 09:06 (Cardizem) 30 mg Q6H PO 01/15/18 15:00 01/19/18 13:56 (Prevacid Odt) 30 mg DAILY NG 01/16/18 09:00 01/19/18 09:06 (Ceftin) 500 mg Q12HR PO 01/18/18 09:00 01/19/18 09:09 (Lasix) 40 mg DAILY NG 01/19/18 09:00 01/19/18 09:06 (Free Water) 200 ml Q6HR G-TUBE 01/18/18 18:00 01/19/18 05:46 (Dakin'S 0.125% Soln) 500 ml DAILY TOPICAL 01/20/18 09:00 UNV (Santyl Oint) 1 applic DAILY TOPICAL 01/20/18 09:00 UNV (Xylocaine 5% Oint) 1 applic Q8H PRN TOPICAL 01/19/18 15:15 UNV Family History Her review of prior H&P in electronic record mother with Alzheimer's father with CAD and CVA history. Substance Use Per review of EMR: Tobacco: Non-smoker Alcohol: Does not drink alcohol Prescription med abuse: None reported Illicits: None reported . Psychosocial History Patient originally from [place], moved to [place] for detention. Live-in caregiver has assisted him for about the past 5 years. She indicates he just before she started caring for him. She is not aware of any other family except for a cousin Alex Night. ex 's name is Olivia Otto. Retired, caregiver not certain what type of work he did prior to detention. Spiritual/Cultural Factors Worship kianna would probably want aesthetics instructor visits Health Care Surrogate: Completed, but not made available Ethical and Legal Issues Patient is not currently able to make his own decisions due to confusion, medical conditions. He is reported to be sharper in the past possible he may regain some ability to participate or at least to designate a healthcare surrogate. Today during my exam he is not able to do this. His caregiver Corinna indicates that he may have a healthcare surrogate though she is not sure. Can attempt to assist him to complete healthcare surrogate designation in the coming days if he becomes more oriented and able to do so however will also need to establish a decision-maker per [place] statutes establish next of kin possible this may be his cousin or additional family. Caregiver Corinna to provide contact information for cousin Alex. Physical Exam Vital Signs Date Time Temp Pulse Resp B/P (MAP) Pulse Ox O2 Delivery O2 Flow Rate FiO2 01/19/18 12:34 94 Nasal Cannula 2.00 01/19/18 11:45 97.8 103 20 101/63 (76) 95 01/19/18 07:44 94 21 01/19/18 07:35 97.5 95 20 114/74 (87) 95 01/19/18 04:00 Nasal Cannula 2.00 01/19/18 04:00 102 01/19/18 04:00 97.9 103 19 147/98 (114) 98 01/19/18 00:00 87 01/19/18 00:00 Nasal Cannula 2.00 01/19/18 00:00 97.9 56 20 123/72 (89) 97 01/18/18 20:00 118 01/18/18 20:00 97.4 106 20 154/76 (102) 94 01/18/18 20:00 Nasal Cannula 2.00 01/18/18 16:00 89 01/18/18 16:00 97.6 78 18 117/58 (77) 98 Exam CONSTITUTIONAL/GENERAL: This is an adequately nourished patient, in no apparent distress. TUBES/LINES/DRAINS: Peripheral IV upper extremity. SKIN: No jaundice, rashes, or lesions. Few areas of ecchymosis to upper extremities, as well as inner thighs. Dressing visible to sacrum and buttocks reported significant wounds beneath. Skin warm and dry. Pale. HEAD: Atraumatic. Normocephalic. EYES: Pupils equal and round and reactive. Extraocular motions intact. No scleral icterus. No injection or drainage. Fundi not examined. ENT: Hard of hearing. Nose without bleeding or purulent drainage. Throat without visible erythema, exudates, masses, or lesions. NECK: Trachea midline. Supple, nontender. No palpable thyroid enlargement or nodularity. CARDIOVASCULAR: Irregular rate and rhythm. No murmur. No JVD. Peripheral pulses symmetric. RESPIRATORY/CHEST: Symmetric, unlabored respirations. On room air clear to auscultation. Breath sounds equal bilaterally. GASTROINTESTINAL: Abdomen soft, round/obese, non-tender, nondistended. No hepato -splenomegaly, or palpable masses. No guarding. Bowel sounds normoactive. GENITOURINARY: Without palpable bladder distension. Andrade catheter in place. MUSCULOSKELETAL: Extremities without clubbing, cyanosis, or edema. No joint tenderness or effusion noted. NEUROLOGICAL: Lethargic, arouses to repeated verbal and touch stimuli. Oriented to self and hospital. No insight into hospitalization. Does follow simple commands. Primarily answers questions with yes/no or one word answers. Does not answer all questions. Does move all 4 extremities with generalized weakness. Appears able to reposition in bed somewhat. PSYCHIATRIC: Somewhat flat, lethargic. Difficult to assess given clinical condition. No evident hallucinations or anxiety. Diagnostic Tests Laboratory Laboratory Tests Test 01/17/18 05:59 01/18/18 03:20 01/19/18 06:55 White Blood Count 8.3 TH/MM3 (4.0-11.0) 8.5 TH/MM3 (4.0-11.0) 9.5 TH/MM3 (4.0-11.0) Red Blood Count 4.28 MIL/MM3 (4.50-5.90) 4.12 MIL/MM3 (4.50-5.90) 4.22 MIL/MM3 (4.50-5.90) Hemoglobin 11.1 GM/DL (13.0-17.0) 10.9 GM/DL (13.0-17.0) 11.1 GM/DL (13.0-17.0) Hematocrit 35.4 % (39.0-51.0) 34.1 % (39.0-51.0) 35.1 % (39.0-51.0) Mean Corpuscular Volume 82.7 FL (80.0-100.0) 82.9 FL (80.0-100.0) 83.2 FL (80.0-100.0) Mean Corpuscular Hemoglobin 25.9 PG (27.0-34.0) 26.4 PG (27.0-34.0) 26.2 PG (27.0-34.0) Mean Corpuscular Hemoglobin Concent 31.3 % (32.0-36.0) 31.8 % (32.0-36.0) 31.5 % (32.0-36.0) Red Cell Distribution Width 21.3 % (11.6-17.2) 21.3 % (11.6-17.2) 20.9 % (11.6-17.2) Platelet Count 313 TH/MM3 (150-450) 296 TH/MM3 (150-450) 301 TH/MM3 (150-450) Mean Platelet Volume 9.1 FL (7.0-11.0) 9.0 FL (7.0-11.0) 9.1 FL (7.0-11.0) Blood Urea Nitrogen 42 MG/DL (7-18) 46 MG/DL (7-18) 43 MG/DL (7-18) Creatinine 1.80 MG/DL (0.60-1.30) 1.65 MG/DL (0.60-1.30) 1.53 MG/DL (0.60-1.30) Random Glucose 287 MG/DL (74-106) 232 MG/DL (74-106) 276 MG/DL (74-106) Calcium Level 8.7 MG/DL (8.5-10.1) 8.4 MG/DL (8.5-10.1) 8.8 MG/DL (8.5-10.1) Sodium Level 148 MEQ/L (136-145) 151 MEQ/L (136-145) 149 MEQ/L (136-145) Potassium Level 3.6 MEQ/L (3.5-5.1) 3.6 MEQ/L (3.5-5.1) 4.2 MEQ/L (3.5-5.1) Chloride Level 110 MEQ/L (98-107) 112 MEQ/L (98-107) 111 MEQ/L (98-107) Carbon Dioxide Level 32.0 MEQ/L (21.0-32.0) 31.9 MEQ/L (21.0-32.0) 31.5 MEQ/L (21.0-32.0) Anion Gap 6 MEQ/L (5-15) 7 MEQ/L (5-15) 7 MEQ/L (5-15) Estimat Glomerular Filtration Rate 37 ML/MIN (>89) 41 ML/MIN (>89) 45 ML/MIN (>89) Result Diagram: 01/19/18 0655 01/19/18 0655 Imaging Last Impressions Chest X-Ray 01/14/18 0000 Signed Impressions: Service Date/Time: Sunday, January 14, 2018 07:34 - CONCLUSION: Increasing interstitial edema otherwise stable. Tee Jimenes MD FACR Abdomen X-Ray 01/07/18 0600 Signed Impressions: Service Date/Time: Sunday, January 07, 2018 04:29 - CONCLUSION: Possible slight interval improvement in gaseous distention of bowel Lito Adkins MD Abdomen/Pelvis CT 01/04/18 0000 Signed Impressions: Service Date/Time: Thursday, January 04, 2018 10:34 - CONCLUSION: 1. Abnormal bowel gas pattern most characteristic of an ileus. There is a small amount of ascitic fluid in right paracolic gutter and pelvis. 2. Bilateral pleural effusions right greater than left with consolidation in both posterior lung bases. 3. Nasogastric tube in place with the tip in the proximal duodenum. 4. Mild diverticulosis. John Neville MD Renal Ultrasound 01/01/18 0000 Signed Impressions: Service Date/Time: December 18:16 - CONCLUSION: 1. No evidence of hydronephrosis. 2. No new or significant changes compared to the prior exam 3. 2.2 cm right renal cyst. Luiz Frey MD Procedures 01/02 Extubated postprocedure 01/06 decompressive colonoscopy 01/07 reintubated during PEA arrest 01/12/18 extubated Patient/Family Conference Family Conference Time (mins): 20 Family Conference Location: Telephone Issues Discussed: Somewhat limited discussion with Don who is his caregiver, in attempt to establish additional history and who may be appropriate legal decision maker. Discussion included the following: * Palliative care role, purpose, approach * Additional medical, psychosocial, and spiritual history * Patients general health, functional status, and cognitive changes in the months leading up to the current hospitalization * Briefly reviewed patient hospital course , current assessment and treatments in place * Briefly explore overall prognosis and patient will remain at risk for ongoing complications secondary to recurrent hospitalizations, comorbidities, deconditioning and advanced age * Review of possible advanced directives or health care surrogate designation-- Corinna is not certain if he has these documents she thinks he might but he has not been able to tell her where they may be she thinks that she would be designated * Questions answered to the best of my ability * Palliative care contact information provided Spoke with caregiver Corinna on the phone. She indicates she has been caring for them for about 5 years. He apparently right before she started caring for him. He only other family she is aware of is a cousin named Alex whom he speaks to occasionally though not very often. She does indicate Alex was in the hospital a few weeks ago to see the patient. She knows patient is originally from [place] moved to [place] upon detention. Indicates she helps him with all of his household daily activities taking care of his cat, his car, goes with him to doctor's appointments etc. Primarily she helps with physical things, he was able to pay his bills. She thinks she may be designated as his healthcare surrogate but she is not certain if or where these documents may be. She will be in touch with patient's cousin Alex, and advised we may be in contact with him, and she will provide his contact information to palliative tomorrow. Assessment and Plan Disease Oriented Problem List: (1) Acute on chronic systolic CHF (congestive heart failure) (2) CKD (chronic kidney disease) stage 3, GFR 30-59 ml/min (3) PAF (paroxysmal atrial fibrillation) (4) Hypothyroidism (5) Elevated troponin (6) Diabetes (7) Acute kidney injury superimposed on chronic kidney disease (8) Hypertension (9) Hyperlipidemia (10) Ileus Symptom Scale: (1) Dysphagia 0-10 Scale: Unable to quantify (2) Dyspnea 0-10 Scale: Unable to quantify (3) Malnutrition 0-10 Scale: Unable to quantify (4) Encephalopathy 0-10 Scale: Unable to quantify Pertinent Non-Medical Issues Psychosocial:Patient originally from [place], moved to [place] for detention. Live-in caregiver has assisted him for about the past 5 years. She indicates he just before she started caring for him. She is not aware of any other family except for a cousin Alex Allison. ex 's name is Olivia Otto. Retired, caregiver not certain what type of work he did prior to detention. Spiritual: Worship kianna, will probably want aesthetics instructor visits Legal:Patient is not currently able to make his own decisions due to confusion, medical conditions. He is reported to be sharper in the past possible he may regain some ability to participate or at least to designate a healthcare surrogate. Today during my exam he is not able to do this. His caregiver Corinna indicates that he may have a healthcare surrogate though she is not sure. Can attempt to assist him to complete healthcare surrogate designation in the coming days if he becomes more oriented and able to do so however will also need to establish a decision-maker per [place] [email or web address] establish next of kin possible this may be his cousin or additional family. Caregiver Corinna to provide contact information for cousin Alex. Ethical issues impacting care: No ethical issues identified at this time. Important Contacts Corinna Powell [phone] / [phone] . Prognosis This patient has had multiple recent hospitalizations for cardiac conditions with some respiratory complications. He has been intubated twice this admission. He also suffered an ileus. Due to advanced age and multiple chronic medical conditions he does remain at risk for ongoing complications and potential setbacks. He may require rehabilitation following this acute hospitalization. . Code Status: Full Code (By default) Plan * Legal decision maker:Patient is not currently able to make his own decisions due to confusion, medical conditions. He is reported to be sharper in the past possible he may regain some ability to participate or at least to designate a healthcare surrogate. Today during my exam he is not able to do this. His caregiver Corinna indicates that he may have a healthcare surrogate though she is not sure. Can attempt to assist him to complete healthcare surrogate designation in the coming days if he becomes more oriented and able to do so however will also need to establish a decision-maker per [place] [email or web address] establish next of kin possible this may be his cousin or additional family. Caregiver Corinna to provide contact information for cousin Alex. * Goals: Goals t pending identification of appropriate legal decision maker, or patient is able to make his own decisions. * CODE STATUS: Full code by default * SYMPTOMS: --Dyspnea-patient reported with chronic dyspnea and orthopnea. He has had episodes of heart failure and atrial fibrillation contributing to this. Status post medical extubation 2 this admission. Currently breathing comfortably on room air. High risk for reintubation, aspiration secondary to some dysphagia. --Dysphagia-ST following patient currently tolerating pured diet. Concern that PEA arrest may have been secondary to aspiration. --Malnutrition-patient had NG tube in which he self discontinued, ST following tolerating a pured diet as of today though not clear he will be able to take an adequate intake will need to continue to monitor oral intake may require feeding tube for supplementation (if goals aggressive) --Encephalopathy: Status post PEA arrest 4/ with ROSC after about 10 minutes. Reported he was cognitively sharp prior to admission per caregiver though prior H&P's do note at times poor historian. Caregiver reports he was paying his own bills prior to this admission. Possible his cognitive status may continue to improve as medical conditions stabilize and improve. Palliative care will continue to follow during hospital course as condition evolves, to assist patient/decision-maker with understanding of medical conditions, weighing benefits/burdens of treatment options, for clarification of goals of treatment. Additionally will assist with any symptoms of palliative concern Time Spent Total Floor Time (mins): 70 (Chart review, PE, discussion with primary nurse, call to caregiver/possible decision maker) Thank you for the opportunity to participate in the care of Mr. Otto. Attestation To help prompt me to consider important information that might be impacting today's encounter and assessment, information from prior notes written by myself or my colleagues may have been "brought forward" into today's note. My signature on this note, however, is an attestation that I personally performed the exam, history, and/or decision-making noted today, and, unless otherwise indicated, the interactions with patient, family, and staff as well as the review of records all occurred today. I also attest that the listed assessment and stated plan reflect my best clinical judgment today based on the combination of historical information, prior notes, and today's exam/ interactions. When time spent is documented, it refers only to time spent today by the signer, or if indicated, combined time spent today by collaborating physician/nurse practitioner. Nuria Araujo Jan 19, 2018 16:29
--- NOTE | 2018-01-19 17:21 | HHI.NPPN ---
Subjective History of Present Illness 72 year old male with Chf/Atrial tachycardia/Afib admitted with Tachyarrhythmia Objective Data Data Vital Signs Date Time Temp Pulse Resp B/P (MAP) Pulse Ox O2 Delivery O2 Flow Rate FiO2 01/19/18 16:05 98.0 80 18 113/68 (83) 96 01/19/18 12:34 94 Nasal Cannula 2.00 01/19/18 11:45 97.8 103 20 101/63 (76) 95 01/19/18 07:44 94 21 01/19/18 07:35 97.5 95 20 114/74 (87) 95 01/19/18 04:00 Nasal Cannula 2.00 01/19/18 04:00 102 01/19/18 04:00 97.9 103 19 147/98 (114) 98 01/19/18 00:00 87 01/19/18 00:00 Nasal Cannula 2.00 01/19/18 00:00 97.9 56 20 123/72 (89) 97 01/18/18 20:00 118 01/18/18 20:00 97.4 106 20 154/76 (102) 94 01/18/18 20:00 Nasal Cannula 2.00 -: 01/19/18 0655 01/19/18 0655 Physical Exam General Appearance: Well Developed, Well Nourished, No Acute Distress, Comfortable Neck Neck Exam: Neck Supple Pulmonary Resp Exam: No Distress, Crackles, Rhonchi, Decreased Bases, Diminished Breath Sounds Cardiology CV Exam: Arrhythmia Gastrointestinal/Abdomen GI Exam: Soft, Non-Tender, Bowel Sounds Present Extremeties Extremities Exam: Moderate Edema, Pitting Edema Neurologic Neuro Exam: Alert, Awake Assessment/Plan Problem List: (1) Acute renal failure ICD Codes: N17.9 - Acute kidney failure, unspecified Status: Acute Plan: Patient had cardiogenic shock and low blood pressure contributing, and cardiorenal syndrome Plan is to cardiovert him once he is stable on Eliquis He has underlying tachyarrhythmia Atrial fibrillation/atrial tachycardia s/p cardiac Ablation Stable renal function. Hypernatremia is noted, likely due to loop diuretic. Lasix to PO. Needs water. Cr 1.53 will follow PRN bases if dc can be followed in clinic (2) Chronic kidney disease, stage III (moderate) ICD Codes: N18.3 - Chronic kidney disease, stage III (moderate) Status: Acute Plan: Baseline care around 1.7 (3) Congestive heart failure ICD Codes: I50.9 - Heart failure, unspecified Status: Acute Plan: He is in cardiogenic shock low blood pressure causing the cardiorenal syndrome (4) PAF (paroxysmal atrial fibrillation) ICD Codes: I48.0 - Paroxysmal atrial fibrillation Plan: Cardiology was following (5) Diabetes ICD Codes: E11.9 - Diabetes Status: Chronic Plan: Monitor blood glucose (6) Acute on chronic systolic CHF (congestive heart failure) ICD Codes: I50.23 - Acute on chronic systolic (congestive) heart failure Problem Qualifiers (1) Acute renal failure: Qualified Codes: N17.8 - Other acute kidney failure (2) Congestive heart failure: Qualified Codes: I50.9 - Heart failure, unspecified Susan Solo MD Jan 19, 2018 17:21
[2018-01-19] MEDS: ATORVASTATIN 40 MG TAB PO SCH (22:11)
[2018-01-19] MEDS: PRAMIPEXOLE DIHYDROCHLORIDE 0.25 MG TAB PO SCH (22:12)
[2018-01-19] MEDS: DOXAZOSIN MESYLATE 4 MG TAB PO SCH (22:12)
[2018-01-20] VITALS (10 sets, daily range): BP systolic 117–138; BP diastolic 64–92; PULSE 63–134; RESP 17–20; TEMP 96.5–98.5; O2SAT 90–96
[2018-01-20] MEDS: DILTIAZEM HCL 30 MG TAB PO SCH ×4 (04:06→21:08)
[2018-01-20] MEDS: LEVOTHYROXINE SODIUM 125 MCG TAB PO SCH (05:50)
[2018-01-20] MEDS: ERYTHROMYCIN EC 250 MG TABEC PO SCH ×3 (05:50→22:00)
[2018-01-20] MEDS: METOCLOPRAMIDE HCL 10 MG/2 ML VIAL IV PUSH SCH ×3 (05:50→22:00)
[2018-01-20] MEDS: FREE WATER G-TUBE SCH ×4 (05:50→23:04)
[2018-01-20 05:56] LABS: HEMATOCRIT 35.6 % (39.0-51.0); HEMOGLOBIN 11.5 GM/DL (13.0-17.0); MEAN CORPUSCULAR HEMOGLOBIN 26.8 PG (27.0-34.0); MEAN CORPUSCULAR HGB CONC 32.3 % (32.0-36.0); MEAN PLATELET VOLUME 9.4 FL (7.0-11.0); PLATELET COUNT 305 TH/MM3 (150-450); RED BLOOD COUNT 4.29 MIL/MM3 (4.50-5.90); RED CELL DISTRIBUTION WIDTH 21.4 % (11.6-17.2); WHITE BLOOD COUNT 8.8 TH/MM3 (4.0-11.0)
[2018-01-20 06:23] LABS: BICARBONATE 32.7 MEQ/L (21.0-32.0); CALCIUM 8.8 MG/DL (8.5-10.1); CREATININE 1.54 MG/DL (0.60-1.30)
[2018-01-20] MEDS: CHLORHEXIDINE 0.12% (ORAL KIT) 15 ML CUP MT SCH ×2 (08:00→20:00)
[2018-01-20] MEDS: INSULIN ASPART SUPPLEMENTAL SCALE SQ SCH ×4 (08:39→21:00)
[2018-01-20] MEDS: LACTULOSE SYRUP 20 GM/30 ML CUP PO SCH ×4 (08:40→21:07)
[2018-01-20] MEDS: SODIUM CHLORIDE 0.9% FLUSH 10 ML FLUSH IV FLUSH SCH ×2 (08:40→21:00)
[2018-01-20] MEDS: AMIODARONE 200 MG TAB PO SCH (08:40)
[2018-01-20] MEDS: POTASSIUM BICARBONATE 25 MEQ EFFERVESCENT TAB NG SCH ×2 (08:40→21:00)
[2018-01-20] MEDS: ALLOPURINOL 100 MG TAB PO SCH (08:40)
[2018-01-20] MEDS: POLYETHYLENE GLYCOL 17 GM PKG PO SCH ×2 (08:40→21:09)
[2018-01-20] MEDS: LANSOPRAZOLE SOLUTAB 30 MG TAB NG SCH (08:40)
[2018-01-20] MEDS: SERTRALINE HCL 50 MG TAB PO SCH ×2 (08:41→21:08)
[2018-01-20] MEDS: oxyCODONE/ACETAMINOPHEN 5 MG/325 MG TAB PO PRN (08:41)
[2018-01-20] MEDS: DOCUSATE SODIUM 50 MG/SENNA 8.6 MG TAB PO SCH ×2 (08:41→21:08)
[2018-01-20] MEDS: FUROSEMIDE 40 MG TAB NG SCH (08:41)
[2018-01-20] MEDS: APIXABAN 2.5 MG TABLET PO SCH ×2 (08:41→21:08)
[2018-01-20] MEDS: BETHANECHOL CHL 25 MG TAB PO SCH (08:41)
[2018-01-20] MEDS: CEFUROXIME AXETIL 500 MG TAB PO SCH ×2 (08:41→21:08)
[2018-01-20] MEDS: COLLAGENASE OINT 30 GM TUBE TOPICAL SCH (08:42)
[2018-01-20] MEDS: SODIUM HYPOCHLORITE 0.125% 500 ML BTL TOPICAL SCH (08:42)
[2018-01-20] MEDS: INSULIN DETEMIR 100 UNITS/ML VIAL SQ SCH ×2 (08:42→21:09)
[2018-01-20] MEDS: DIGOXIN SOLUTION 0.125 MG/2.5 ML CUP PO SCH (08:42)
--- NOTE | 2018-01-20 11:58 | HHI.HCSW ---
Porcelain Finish Sprayer Visit Advance Directive Spoke with patient's primary care doctors office, Dr. Julian Hartman. Hr Administrative Assistant states he declined completing DNR, declined completing living will No next of kin information. . Follow Up Visit Awaiting caregiver to provide information for possible cousin Alex. If patient remains unable to make his own medical decisions and designate a health care surrogate may need to engage accurint to rule out additional family. Palliative care will continue to follow throughout hospitalization. Veronika Cedeno, ORDER ENTRY TECHNICIAN Jan 20, 2018 11:58
--- NOTE | 2018-01-20 12:53 | HHI.NPPN ---
Subjective History of Present Illness 72 year old male with Chf/Atrial tachycardia/Afib admitted with Tachyarrhythmia Objective Data Data Vital Signs Date Time Temp Pulse Resp B/P (MAP) Pulse Ox O2 Delivery O2 Flow Rate FiO2 01/20/18 08:00 96.5 63 19 117/64 (81) 93 01/20/18 07:50 96 Nasal Cannula 2.00 01/20/18 04:00 Nasal Cannula 2.00 01/20/18 04:00 98.4 66 20 117/69 (85) 96 01/20/18 00:00 97.8 73 20 138/68 (91) 91 01/20/18 00:00 Room Air 01/19/18 20:39 92 01/19/18 20:31 90 01/19/18 20:00 Nasal Cannula 2.00 01/19/18 20:00 97.6 64 18 110/65 (80) 96 01/19/18 16:05 98.0 80 18 113/68 (83) 96 01/19/18 16:00 105 -: 01/20/18 0520 01/20/18 0520 Microbiology 01/20/18 Gram Stain - Final, Resulted 01/20/18 Wound Culture, Resulted Pending Physical Exam General Appearance: Well Developed, Well Nourished, No Acute Distress, Comfortable Neck Neck Exam: Neck Supple Pulmonary Resp Exam: No Distress, Crackles, Rhonchi, Decreased Bases, Diminished Breath Sounds Cardiology CV Exam: Arrhythmia Gastrointestinal/Abdomen GI Exam: Soft, Non-Tender, Bowel Sounds Present Extremeties Extremities Exam: Moderate Edema, Pitting Edema Neurologic Neuro Exam: Alert, Awake Assessment/Plan Problem List: (1) Acute renal failure ICD Codes: N17.9 - Acute kidney failure, unspecified Status: Acute Plan: Patient had cardiogenic shock and low blood pressure contributing, and cardiorenal syndrome Plan is to cardiovert him once he is stable on Eliquis He has underlying tachyarrhythmia Atrial fibrillation/atrial tachycardia s/p cardiac Ablation Stable renal function. Hypernatremia is noted, likely due to loop diuretic. Lasix to PO. Needs water. Cr 1.54 Na 150 if dc can be followed in clinic (2) Chronic kidney disease, stage III (moderate) ICD Codes: N18.3 - Chronic kidney disease, stage III (moderate) Status: Acute Plan: Baseline care around 1.7 (3) Congestive heart failure ICD Codes: I50.9 - Heart failure, unspecified Status: Acute Plan: He is in cardiogenic shock low blood pressure causing the cardiorenal syndrome (4) PAF (paroxysmal atrial fibrillation) ICD Codes: I48.0 - Paroxysmal atrial fibrillation Plan: Cardiology was following (5) Diabetes ICD Codes: E11.9 - Diabetes Status: Chronic Plan: Monitor blood glucose (6) Acute on chronic systolic CHF (congestive heart failure) ICD Codes: I50.23 - Acute on chronic systolic (congestive) heart failure Problem Qualifiers (1) Acute renal failure: Qualified Codes: N17.8 - Other acute kidney failure (2) Congestive heart failure: Qualified Codes: I50.9 - Heart failure, unspecified Susan Solo MD Jan 20, 2018 12:53
--- NOTE | 2018-01-20 14:28 | PD.WCN.NOT ---
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 Communicated with: Doctor Tran and RN Torri [address] [place] [address] Recommendation: Continue wound care as recommended: 2. Please Cleanse wound to coccyx, R inner buttock and L inner buttock with normal saline only and pat dry., 3. Apply Santyl to Dakin's 0.125% moistened fluffed gauze and pack loosely to coccyx wound bed. 4. Apply Calazime skin protectant paste to periwound of coccyx. 5. Apply Santyl to Maxorb II and cover just wound bed of of bilateral inner buttock wounds. 6. Secure dressings to bilateral inner buttocks, and coccyx wounds with ABD pad and medfix tape. 7. Change dressing daily 8. Please keep patient turned and repositioned every 2 hours or as needed for comfort and offloading of pressure from raghavendra prominences Additional Information: Patient seen on for follow up with Doctor Tran for possible bedside debridement of wound to coccyx area.Patient was turned with the the moderate assistance of literary writer, to L side to reveal dressing and bed linens soiled with stool.GOLD AND SILVER ASSAYER, and RN notified of soiled linens and dressing. With the assistance of GOLD AND SILVER ASSAYER patient was cleansed of stool using bath wipes and soiled linen was replaced Removed ABD pad secured with plastic tape, and gauze pad packed in wound coccyx wound bed to reveal wounds to coccyx,L inner buttock and R inner buttock. Wound to coccyx presents with ~90% adherent yellow/ brown slough and ~ 10% pink tissue. Wound measures 5cm x 1.5cm x ~2.9cm with slough at base. 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 Wound has foul odor and minimal sero- sanguinous/green drainage. Periwound is erythematous, but blanchable. Wound margins are steep and well defined.Wound culture obtained by Doctor Tran from coccyx wound L buttock wound presents as shallow full thickness wound with ~30% yellow slough and ~50% adipose and ~20% pink. Wound bed is moist with minimal serous drainage. Periwound is erythematous but blanchable. Wound measures 5.8cm x 4cm x slough. Wound margins are well defined but uneven. Wound to R inner buttock presents with ~20% yellow slough, ~50% adipose tissue and ~30% pink tissue.Wound bed is moist, with minimal drainage that is serous. Wound margins are uneven but well defined. Periwound is erythematous but blanchable.Wound measures 2.3cm x 1cm x slough. Cleansed all wounds with normal saline and patted dry. Applied topical lidocaine to coccyx wound, and bilateral buttocks wounds. Applied Santyl ointment to 2 Dakin's 0.125% moistened fluffed gauze pads and packed loosely to coccyx wound bed.Then applied Santyl ointment to Maxorb II and covered Bilateral inner buttock wounds with maxorb II just over wound beds and not over intact skin. Sprayed periwound with Cavilon skin barrier film. Secured all dressings with ABD pad and medfix tape. Patient tolerated wound care fairly with complaints of pain in wound bed with packing and cleaning. Isela Fried [facility] Jan 20, 2018 14:27
--- NOTE | 2018-01-20 14:32 | HHI.PR ---
Subjective Remarks Patient is not eating much. Nor drinking much. Still very confused. Objective Vitals Vital Signs Date Time Temp Pulse Resp B/P (MAP) Pulse Ox O2 Delivery O2 Flow Rate FiO2 01/20/18 12:00 97.7 98 18 120/87 (98) 96 01/20/18 08:00 96.5 63 19 117/64 (81) 93 01/20/18 07:50 96 Nasal Cannula 2.00 01/20/18 04:00 Nasal Cannula 2.00 01/20/18 04:00 98.4 66 20 117/69 (85) 96 01/20/18 00:00 97.8 73 20 138/68 (91) 91 01/20/18 00:00 Room Air 01/19/18 20:39 92 01/19/18 20:31 90 01/19/18 20:00 Nasal Cannula 2.00 01/19/18 20:00 97.6 64 18 110/65 (80) 96 01/19/18 16:05 98.0 80 18 113/68 (83) 96 01/19/18 16:00 105 I/O 01/19/18 01/19/18 01/19/18 01/20/18 01/20/18 01/20/18 07:00 15:00 23:00 07:00 15:00 23:00 Intake Total 672 ml 120 ml 420 ml Output Total 500 ml 750 ml 650 ml Balance 172 ml -630 ml -230 ml Intake Oral 0 ml 120 ml 420 ml Tube Feeding 272 ml Other 400 ml Output Urine Total 500 ml 750 ml 650 ml # Voids 4 # Bowel Movements 1 5 Result Diagram: 01/20/1851901/20/18 05 Objective Remarks GENERAL: Morbidly obese male in no acute distress. CARDIOVASCULAR: Normal rate and regular rhythm without murmurs, gallops, or rubs. Bilateral lower extremity with trace edema RESPIRATORY: Bilateral basilar crackles. Upper lung hernández are clear to auscultation. GASTROINTESTINAL: Abdomen morbidly obese. Nontender. No guarding NEUROLOGICAL: Awake, alert to self only. A/P Problem List: (1) Acute on chronic systolic CHF (congestive heart failure) ICD Code: I50.23 - Acute on chronic systolic (congestive) heart failure (2) PAF (paroxysmal atrial fibrillation) ICD Code: I48.0 - Paroxysmal atrial fibrillation (3) Acute kidney injury superimposed on chronic kidney disease ICD Code: N17.9 - Acute kidney failure, unspecified; N18.9 - Chronic kidney disease, unspecified (4) Hypothyroidism ICD Code: E03.9 - Hypothyroidism Status: Acute (5) Diabetes ICD Code: E11.9 - Diabetes Status: Chronic (6) Hyperkalemia ICD Code: E87.5 - Hyperkalemia Status: Acute Assessment and Plan 72-year-old male admitted with A. fib with RVR. Patient underwent cardiac ablation, respiratory failure postoperatively he was intubated. Status post PEA arrest. Concern for aspiration event. Patient was extubated. Prolonged ICU course. He has been downgraded to the floor. 01/20: Patient remained encephalopathic, questionable anoxic injury. Not eating or drinking enough. He had NGT but he pulled it out. Encourage nursing to try to feed the patient. Radiology Services Manager for calorie count. Acute hypoxic and hypercarbic respiratory failure MUNA -nocturnal CPAP 8 cm H2O Moderate right pleural effusion Extubated 01/02. reintubated 01/07 during PEA arrest, extubated again 01/12/18 wean fio2 for goal spo2 > 90% Nebs as needed EzPAP, Acapella Chronic diastolic heart failure, with exacerbation ejection fraction 45-50% recurrent atrial fibrillation with rapid ventricular response s/p PEA arrest 01/07 Status post ablation for A. fib/flutter Hypertension Dyslipidemia Continue amiodarone 200 mg by mouth daily Received IV digoxin and IV metoprolol 01/14 digoxin 0.125 mg p.o. daily Continue Cardizem 30 mg p.o. every 6 hours. Holding diltiazem 240 mg p.o. daily/ home medication Continue atorvastatin 40 mg p.o. daily for his lipidemia At home on fish oil/cholecalciferol 1200/1000 1 tablet twice daily/home medication Holding ramipril 5 mg p.o. daily for hypertension with acute kidney injury Dr. Ramirez evaluated no further plans at this time Blood pressure too low this morning to tolerate Lasix. Hold Lasix today, consider resuming Lasix orally tomorrow if blood pressure can tolerate. Encephalopathy,? Anoxic injury: Depression/anxiety Chronic narcotic use continue sertraline 50 mg twice daily/home medication for depression Continue pramipexole 0.5 mg p.o. daily for extrapyramidal side effects Currently holding buspirone 5 mg 3 times daily anxiety On oxycodone/acetaminophen 5/325 1 - 2 tablets every 4 hours as needed pain PT/OT/speech He remained encephalopathic Gastroesophageal reflux disease Elevated transaminases Ileus Sigmoid diverticulosis Internal/external hemorrhoids Advance diet per speech therapy recommendations. Not tolerating enough p.o. nutrition yet. Continue NGT. If no improvement, will need to discuss with family regarding permanent tube feeding. Docusate sodium/senna 1 tablet twice daily for bowel regimen with polyethylene glycol 17 g twice daily and lactulose 30 cc 4 times daily Follow transaminases intermittently is likely congestion. Further workup and On metoclopramide 5 mg IV every 8 hours and erythromycin [address] abdomen/pelvis revealed dilated small and large bowel. Colonoscopy by Dr. Bella/revealed sigmoid diverticulosis. Decompression of colon. Internal and external hemorrhoids. BPH/overflow Continue doxazosin 4 mg daily and bethanechol 25 mg daily Diabetes mellitus Hypothyroidism Low testosterone Currently on insulin detemir 4 units twice daily with NovoLog sliding scale insulin/low regimen before meals at bedtime At home on insulin glargine 12 units twice daily with sliding scale insulin Continue levothyroxine 125 mcg p.o. daily. TSH 3.06 Holding testosterone Acute kidney injury likely secondary to cardiorenal syndrome Renal cyst right 2.2 cm Followed by nephrology. Monitor urine output Accurate I's and O's. Renal ultrasound with no hydronephrosis. Right renal cyst 2.2 cm. Rare eosinophils urine. Oral Lasix per nephrology. Hyponatremia: - Need free water but not taking enough PO. Start D5 with 1/4 NS. F/U BMP Chronic apixaban use Normocytic normochromic anemia Currently renally dose of 2.5 mg twice daily. Monitor CBC daily. Follow trends Probable pneumonia/E. coli in sputum Sensitivity profile noted. Switch to cefuroxime. Debility: - Secondary to comorbid conditions above. Patient will need SNF placement. Continue rehab efforts. Prophylaxis -GI -Lansoprazole -DVT -SCD/apixaban Discharge Planning Maynor Combs MD Jan 20, 2018 14:32
--- NOTE | 2018-01-20 14:36 | HHI.HCPN ---
Reason for visit a. To assist with evaluation and management of symptoms including: Encephalopathy, dyspnea, dysphasia b. To assist medical decision maker(s) with: better understanding of current medical conditions; weighing benefits/burdens of medical treatment options; making medical treatment decisions. . Subjective/Interval History Patient is a 72-year-old male with CHF, atrial tachycardia and atrial fibrillation who was admitted with tachyarrhythmia. Follow up visit for symptom management of confusion, dysphagia and debility as well as identification of the appropriate healthcare proxy decision-maker. Patient seen and assessed in room 1432. Patient is oriented to self only. He can tell me his name as well as the name of his hired cg (Corinna Powell), but he does not know that he is in the hospital or what circumstances brought him here. Per nursing report patient has been confused and somewhat agitated, pulling out his venous access lines. Patient denies dyspnea on exam; denies pain. Hemodynamically stable. Oxygen saturations in the mid 90s on 2 L via nasal cannula. Recent bloodwork was reviewed: == WBC: 8.8, hemoglobin 11.5, hematocrit 35.6, platelets 305 == Sodium 150, potassium 4.1, chloride 112, carbon dioxide 32.7, glucose 168, calcium 8.8 == BUN: 39, creatinine 1.54, GFR 45 == Wound culture buttocks-pending Prior to this admission, the patient was living in his home with a private caregiver. He was cognitively sharp but needed some assistance with his physical care. He has had progressive dyspnea and ongoing weakness since being hospitalized in August,. Physical therapy is following and has recommended SNF placement upon discharge for rehab. Patient is on mechanically soft diet with chopped meat, extra gravy and honey consistency thickened liquids per ST recommendations. Patient coughing with thickened liquids on exam. Total protein: 6.1, albumin 2.1 . Family/friend interactions Spoke to patient's hired caregiver, Corinna Powell. She has not yet provided contact information for the patient's nephew, Alex. She states she will try to locate his phone number before coming to the hospital later today. Veronika Cedeno ( Palliative Care COMPUTER NUMERICAL CONTROL GRINDER) contacted patient's PCP, Dr. Julian Hartman, as well as completed a google search in an attempt to find possible relatives. A message was left for the patient's ex-, Olivia Otto, at her previous Palliative care contact information was provided to the patient/family [phone] to inquire about additional family for patient. Accurints report pending. . Advance Directives Living Will: Never completed Health Care Surrogate: Never completed Durable Power of Propagator Laborer: Never completed Objective Vital Signs Date Time Temp Pulse Resp B/P (MAP) Pulse Ox O2 Delivery O2 Flow Rate FiO2 01/20/18 12:00 97.7 98 18 120/87 (98) 96 01/20/18 08:00 96.5 63 19 117/64 (81) 93 01/20/18 07:50 96 Nasal Cannula 2.00 01/20/18 04:00 Nasal Cannula 2.00 01/20/18 04:00 98.4 66 20 117/69 (85) 96 01/20/18 00:00 97.8 73 20 138/68 (91) 91 01/20/18 00:00 Room Air 01/19/18 20:39 92 01/19/18 20:31 90 01/19/18 20:00 Nasal Cannula 2.00 01/19/18 20:00 97.6 64 18 110/65 (80) 96 01/19/18 16:05 98.0 80 18 113/68 (83) 96 01/19/18 16:00 105 Intake & Output 01/20/18 01/20/18 07:00 19:00 Intake Total 420 ml Output Total 650 ml Balance -230 ml Intake Oral 420 ml Output Urine Total 650 ml # Bowel Movements 5 . Physical Exam CONSTITUTIONAL/GENERAL: This is a confused, elderly male patient in no acute distress. TUBES/LINES/DRAINS: Condom catheter SKIN: No jaundice, rashes, or lesions. Few areas of ecchymosis to upper extremities, as well as inner thighs. Dressing visible to sacrum and buttocks reported significant wounds beneath. Skin warm and dry. Generalized pallor. HEAD: Atraumatic. Normocephalic. EYES: Pupils equal and round and reactive. Extraocular motions intact. No scleral icterus. No injection or drainage. Fundi not examined. ENT: Hard of hearing. Nose without bleeding or purulent drainage. Poor dentition. Oral mucosa dry. NECK: Trachea midline. Supple, nontender. No palpable thyroid enlargement or nodularity. CARDIOVASCULAR: Irregular rate and rhythm. No murmur. No JVD. Peripheral pulses symmetric. RESPIRATORY/CHEST: Symmetric, unlabored respirations on 2L via NC. CTA. Breath sounds equal bilaterally. GASTROINTESTINAL: Abdomen soft, round/obese, non-tender, nondistended. No hepato -splenomegaly, or palpable masses. No guarding. Bowel sounds normoactive. GENITOURINARY: Without palpable bladder distension. Condom catheter MUSCULOSKELETAL: Extremities without clubbing, cyanosis, or edema. No joint tenderness or effusion noted. NEUROLOGICAL: Awake. Oriented to person only. Patient can tell me his name and the name of his private caregiver, but he does not know that he is in the hospital. No insight into hospitalization. Does follow simple commands. Does not answer all questions. Does move all 4 extremities with generalized weakness. Appears able to reposition in bed somewhat. PSYCHIATRIC: Somewhat flat, lethargic. Difficult to assess given clinical condition. No evident hallucinations or anxiety. . Diagnostic Tests Laboratory Laboratory Tests Test 01/18/18 03:20 01/19/18 06:55 01/20/18 05:20 White Blood Count 8.5 TH/MM3 (4.0-11.0) 9.5 TH/MM3 (4.0-11.0) 8.8 TH/MM3 (4.0-11.0) Red Blood Count 4.12 MIL/MM3 (4.50-5.90) 4.22 MIL/MM3 (4.50-5.90) 4.29 MIL/MM3 (4.50-5.90) Hemoglobin 10.9 GM/DL (13.0-17.0) 11.1 GM/DL (13.0-17.0) 11.5 GM/DL (13.0-17.0) Hematocrit 34.1 % (39.0-51.0) 35.1 % (39.0-51.0) 35.6 % (39.0-51.0) Mean Corpuscular Volume 82.9 FL (80.0-100.0) 83.2 FL (80.0-100.0) 83.0 FL (80.0-100.0) Mean Corpuscular Hemoglobin 26.4 PG (27.0-34.0) 26.2 PG (27.0-34.0) 26.8 PG (27.0-34.0) Mean Corpuscular Hemoglobin Concent 31.8 % (32.0-36.0) 31.5 % (32.0-36.0) 32.3 % (32.0-36.0) Red Cell Distribution Width 21.3 % (11.6-17.2) 20.9 % (11.6-17.2) 21.4 % (11.6-17.2) Platelet Count 296 TH/MM3 (150-450) 301 TH/MM3 (150-450) 305 TH/MM3 (150-450) Mean Platelet Volume 9.0 FL (7.0-11.0) 9.1 FL (7.0-11.0) 9.4 FL (7.0-11.0) Blood Urea Nitrogen 46 MG/DL (7-18) 43 MG/DL (7-18) 39 MG/DL (7-18) Creatinine 1.65 MG/DL (0.60-1.30) 1.53 MG/DL (0.60-1.30) 1.54 MG/DL (0.60-1.30) Random Glucose 232 MG/DL (74-106) 276 MG/DL (74-106) 168 MG/DL (74-106) Calcium Level 8.4 MG/DL (8.5-10.1) 8.8 MG/DL (8.5-10.1) 8.8 MG/DL (8.5-10.1) Sodium Level 151 MEQ/L (136-145) 149 MEQ/L (136-145) 150 MEQ/L (136-145) Potassium Level 3.6 MEQ/L (3.5-5.1) 4.2 MEQ/L (3.5-5.1) 4.1 MEQ/L (3.5-5.1) Chloride Level 112 MEQ/L (98-107) 111 MEQ/L (98-107) 112 MEQ/L (98-107) Carbon Dioxide Level 31.9 MEQ/L (21.0-32.0) 31.5 MEQ/L (21.0-32.0) 32.7 MEQ/L (21.0-32.0) Anion Gap 7 MEQ/L (5-15) 7 MEQ/L (5-15) 5 MEQ/L (5-15) Estimat Glomerular Filtration Rate 41 ML/MIN (>89) 45 ML/MIN (>89) 45 ML/MIN (>89) . Result Diagram: 01/20/18 0520 01/20/18 0520 Microbiology Microbiology Date/Time Source Procedure Growth Status 01/20/18 09:55 Wound Buttock Gram Stain - Final Resulted 01/20/18 09:55 Wound Buttock Wound Culture Pending Resulted . Procedures 01/02 Extubated postprocedure 01/06 decompressive colonoscopy 01/07 reintubated during PEA arrest 01/12/18 extubated . Assessment and Plan Disease Oriented Problem List: (1) Acute on chronic systolic CHF (congestive heart failure) (2) CKD (chronic kidney disease) stage 3, GFR 30-59 ml/min (3) PAF (paroxysmal atrial fibrillation) (4) Hypothyroidism (5) Elevated troponin (6) Diabetes (7) Acute kidney injury superimposed on chronic kidney disease (8) Hypertension (9) Hyperlipidemia (10) Ileus Symptom Scale: (1) Dysphagia 0-10 Scale: Unable to quantify (2) Dyspnea 0-10 Scale: Unable to quantify (3) Encephalopathy 0-10 Scale: Unable to quantify Pertinent Non-Medical Issues Psychosocial:Patient originally from [place], moved to [place] for residential. Live-in caregiver has assisted him for about the past 5 years. She indicates he just before she started caring for him. She is not aware of any other family except for a cousin Alex Estefany. ex 's name is Olivia Otto. Retired, caregiver not certain what type of work he did prior to residential. Spiritual: Caodaism kianna, will probably want medical center director visits Legal:Patient is not currently able to make his own decisions due to confusion, medical conditions. He is reported to be sharper in the past possible he may regain some ability to participate or at least to designate a healthcare surrogate. Today during my exam he is not able to do this. His caregiver Corinna indicates that he may have a healthcare surrogate though she is not sure. Can attempt to assist him to complete healthcare surrogate designation in the coming days if he becomes more oriented and able to do so however will also need to establish a decision-maker per [place] statutes establish next of kin possible this may be his cousin or additional family. Caregiver Coirnna has not yet provided contact information for cousin Alex. Accurints report requested. Ethical issues impacting care: No ethical issues identified at this time. . Important Contacts Corinna Powell [phone] / [phone] . Prognosis This patient has had multiple recent hospitalizations for cardiac conditions with some respiratory complications. He has been intubated twice this admission. He also suffered an ileus. Due to advanced age and multiple chronic medical conditions he does remain at risk for ongoing complications and potential setbacks. He may require rehabilitation following this acute hospitalization. . Code Status: Full Code (By default) Plan * FULL CODE by default * Legal decision maker:Patient is not currently able to make his own decisions due to confusion, medical conditions. He is reported to be sharper in the past and he may regain some ability to participate or at least to designate a healthcare surrogate. However, during my exam today the patient is unable to do this. If he is unable to designate a HCS decision-maker in the upcoming days , we will need to establish the legal decision-maker per [place] statutes. * Spoke to patient's hired caregiver, Corinna Powell. She has not yet provided contact information for the patient's nephew, Alex. She states she will try to locate his phone number before coming to the hospital later today. Veronika Cedeno (Palliative Care COMPUTER NUMERICAL CONTROL GRINDER) contacted patient's PCP, Dr. Julian Hartman, as well as completed a google search in an attempt to find possible relatives. A message was left for the patient's ex-, Olivia Otto, at her previous Palliative care contact information was provided to the patient/family [phone] to inquire about additional family for patient. Accurints report pending. * Goals pending identification of appropriate legal decision maker, or patient is able to make his own decisions. * Discussed clinical condition and current medical treatment goals with porter sample case (Maria) and bedside nurse (Torri). * Palliative care contact information provided to patient's hired caregiver ( Corinna Powell). * SYMPTOMS: --Dyspnea: Patient reported with chronic dyspnea and orthopnea. He has had episodes of heart failure and atrial fibrillation contributing to this. Status post medical extubation 2 this admission. Currently breathing comfortably on room air. He denies feeling short of breath on exam. Oxygen saturations stable on 2 L via nasal cannula high risk for reintubation, aspiration secondary to some dysphagia. --Dysphagia: Patient on mechanically soft diet with chopped meat and gravy as well as honey thickened consistency liquids per ST recommendations. There is concern that PEA arrest may have been secondary to aspiration. Patient is noted to be coughing with liquids. Recommendations for ongoing follow-up/reevaluation with speech therapy. --Encephalopathy: Status post PEA arrest 01/06 with ROSC after about 10 minutes. Reported he was cognitively sharp prior to admission per caregiver though prior H&P's do note at times poor historian. Caregiver reports he was paying his own bills prior to this admission. Possible his cognitive status may continue to improve as medical conditions stabilize and improve. Continue to monitor. Palliative care will continue to follow during hospital course as condition evolves, to assist patient/decision-maker with understanding of medical conditions, weighing benefits/burdens of treatment options, for clarification of goals of treatment. Additionally will assist with any symptoms of palliative concern. . Attestation To help prompt me to consider important information that might be impacting today's encounter and assessment, information from prior notes written by myself or my colleagues may have been "brought forward" into today's note. My signature on this note, however, is an attestation that I personally performed the exam, history, and/or decision-making noted today, and, unless otherwise indicated, the interactions with patient, family, and staff as well as the review of records all occurred today. I also attest that the listed assessment and stated plan reflect my best clinical judgment today based on the combination of historical information, prior notes, and today's exam/ interactions. When time spent is documented, it refers only to time spent today by the signer, or if indicated, combined time spent today by collaborating physician/nurse practitioner. . Sadie Lyon Jan 20, 2018 14:36
--- NOTE | 2018-01-20 14:38 | HHI.PR ---
Objective Vitals Vital Signs Date Time Temp Pulse Resp B/P (MAP) Pulse Ox O2 Delivery O2 Flow Rate FiO2 01/20/18 12:00 97.7 98 18 120/87 (98) 96 01/20/18 08:00 96.5 63 19 117/64 (81) 93 01/20/18 07:50 96 Nasal Cannula 2.00 01/20/18 04:00 Nasal Cannula 2.00 01/20/18 04:00 98.4 66 20 117/69 (85) 96 01/20/18 00:00 97.8 73 20 138/68 (91) 91 01/20/18 00:00 Room Air 01/19/18 20:39 92 01/19/18 20:31 90 01/19/18 20:00 Nasal Cannula 2.00 01/19/18 20:00 97.6 64 18 110/65 (80) 96 01/19/18 16:05 98.0 80 18 113/68 (83) 96 01/19/18 16:00 105 I/O 01/19/18 01/19/18 01/19/18 01/20/18 01/20/18 01/20/18 07:00 15:00 23:00 07:00 15:00 23:00 Intake Total 672 ml 120 ml 420 ml Output Total 500 ml 750 ml 650 ml Balance 172 ml -630 ml -230 ml Intake Oral 0 ml 120 ml 420 ml Tube Feeding 272 ml Other 400 ml Output Urine Total 500 ml 750 ml 650 ml # Voids 4 # Bowel Movements 1 5 Result Diagram: 01/20/18 0501/20/18 0520 Objective Remarks GENERAL: Morbidly obese male in no acute distress. CARDIOVASCULAR: Normal rate and regular rhythm without murmurs, gallops, or rubs. Bilateral lower extremity with trace edema RESPIRATORY: Bilateral basilar crackles. Upper lung hernández are clear to auscultation. GASTROINTESTINAL: Abdomen morbidly obese. Nontender. No guarding NEUROLOGICAL: Awake, alert to self only. A/P Problem List: (1) Acute on chronic systolic CHF (congestive heart failure) ICD Code: I50.23 - Acute on chronic systolic (congestive) heart failure (2) PAF (paroxysmal atrial fibrillation) ICD Code: I48.0 - Paroxysmal atrial fibrillation (3) Acute kidney injury superimposed on chronic kidney disease ICD Code: N17.9 - Acute kidney failure, unspecified; N18.9 - Chronic kidney disease, unspecified (4) Hypothyroidism ICD Code: E03.9 - Hypothyroidism Status: Acute (5) Diabetes ICD Code: E11.9 - Diabetes Status: Chronic (6) Hyperkalemia ICD Code: E87.5 - Hyperkalemia Status: Acute Assessment and Plan 72-year-old male admitted to [facility] with RVR. Patient underwent cardiac ablation, respiratory failure postoperatively he was intubated. Status post PEA arrest. Concern for aspiration event. Patient was extubated. Prolonged ICU course. He has been downgraded to the floor. 01/19: Patient remained encephalopathic, questionable anoxic injury. He has been getting feeding through an NG tube but he pulled that out today. Encourage nursing to try oral intake. If not reinsert NGT Consult palliative care to assist with goals of care. Acute hypoxic and hypercarbic respiratory failure MUNA -nocturnal CPAP 8 cm H2O Moderate right pleural effusion Extubated 01/02. reintubated 01/07 during PEA arrest, extubated again 01/12/18 wean fio2 for goal spo2 > 90% Nebs as needed EzPAP, Acapella Chronic diastolic heart failure, with exacerbation ejection fraction 45-50% recurrent atrial fibrillation with rapid ventricular response s/p PEA arrest 01/07 Status post ablation for A. fib/flutter Hypertension Dyslipidemia Continue amiodarone 200 mg by mouth daily Received IV digoxin and IV metoprolol 01/14 digoxin 0.125 mg p.o. daily Continue Cardizem 30 mg p.o. every 6 hours. Holding diltiazem 240 mg p.o. daily/ home medication Continue atorvastatin 40 mg p.o. daily for his lipidemia At home on fish oil/cholecalciferol 1200/1000 1 tablet twice daily/home medication Holding ramipril 5 mg p.o. daily for hypertension with acute kidney injury Dr. Ramirez evaluated no further plans at this time Blood pressure too low this morning to tolerate Lasix. Hold Lasix today, consider resuming Lasix orally tomorrow if blood pressure can tolerate. Encephalopathy,? Anoxic injury: Depression/anxiety Chronic narcotic use continue sertraline 50 mg twice daily/home medication for depression Continue pramipexole 0.5 mg p.o. daily for extrapyramidal side effects Currently holding buspirone 5 mg 3 times daily anxiety On oxycodone/acetaminophen 5/325 1 - 2 tablets every 4 hours as needed pain PT/OT/speech He remained encephalopathic Gastroesophageal reflux disease Elevated transaminases Ileus Sigmoid diverticulosis Internal/external hemorrhoids Advance diet per speech therapy recommendations. Not tolerating enough p.o. nutrition yet. Continue NGT. If no improvement, will need to discuss with family regarding permanent tube feeding. Docusate sodium/senna 1 tablet twice daily for bowel regimen with polyethylene glycol 17 g twice daily and lactulose 30 cc 4 times daily Follow transaminases intermittently is likely congestion. Further workup and On metoclopramide 5 mg IV every 8 hours and erythromycin [address] abdomen/pelvis revealed dilated small and large bowel. Colonoscopy by Dr. Bella/revealed sigmoid diverticulosis. Decompression of colon. Internal and external hemorrhoids. BPH/overflow Continue doxazosin 4 mg daily and bethanechol 25 mg daily Diabetes mellitus Hypothyroidism Low testosterone Currently on insulin detemir 4 units twice daily with NovoLog sliding scale insulin/low regimen before meals at bedtime At home on insulin glargine 12 units twice daily with sliding scale insulin Continue levothyroxine 125 mcg p.o. daily. TSH 3.06 Holding testosterone Acute kidney injury likely secondary to cardiorenal syndrome Renal cyst right 2.2 cm Followed by nephrology. Monitor urine output Accurate I's and O's. Renal ultrasound with no hydronephrosis. Right renal cyst 2.2 cm. Rare eosinophils urine. Oral Lasix per nephrology. Hyponatremia: - Need free water. Ordered through G-tube 200 mL every 6 hours. Chronic apixaban use Normocytic normochromic anemia Currently renally dose of 2.5 mg twice daily. Monitor CBC daily. Follow trends Probable pneumonia/E. coli in sputum Sensitivity profile noted. Switch to cefuroxime. Debility: - Secondary to comorbid conditions above. Patient will need SNF placement. Continue rehab efforts. Prophylaxis -GI -Lansoprazole -DVT -SCD/apixaban Discharge Planning Maynor Combs MD Jan 20, 2018 14:38
[2018-01-20] MEDS: ATORVASTATIN 40 MG TAB PO SCH (21:08)
[2018-01-20] MEDS: PRAMIPEXOLE DIHYDROCHLORIDE 0.25 MG TAB PO SCH (21:08)
[2018-01-20] MEDS: DOXAZOSIN MESYLATE 4 MG TAB PO SCH (21:09)
[2018-01-20] MEDS: DEXTROSE 5%-NACL 0.225% INJ 1,000 ML IV SCH (23:00)
[2018-01-21] VITALS (9 sets, daily range): BP systolic 114–143; BP diastolic 66–78; PULSE 98–133; RESP 16–20; TEMP 97.4–98.2; O2SAT 92–98
[2018-01-21] MEDS: oxyCODONE/ACETAMINOPHEN 5 MG/325 MG TAB PO PRN (01:59)
[2018-01-21] MEDS: DILTIAZEM HCL 30 MG TAB PO SCH ×4 (01:59→20:14)
[2018-01-21] MEDS ORDERED: METOPROLOL TARTRATE 5 MG/5 ML VIAL IV PUSH ONE (04:45)
[2018-01-21] MEDS: FREE WATER G-TUBE SCH ×4 (05:22→22:14)
[2018-01-21] MEDS: LEVOTHYROXINE SODIUM 125 MCG TAB PO SCH (05:32)
[2018-01-21] MEDS: ERYTHROMYCIN EC 250 MG TABEC PO SCH ×3 (05:33→22:00)
[2018-01-21] MEDS: METOCLOPRAMIDE HCL 10 MG/2 ML VIAL IV PUSH SCH ×3 (05:33→23:41)
[2018-01-21 07:29] LABS: HEMATOCRIT 37.2 % (39.0-51.0); HEMOGLOBIN 11.7 GM/DL (13.0-17.0); MEAN CELL VOLUME 84.5 FL (80.0-100.0); MEAN CORPUSCULAR HEMOGLOBIN 26.6 PG (27.0-34.0); MEAN CORPUSCULAR HGB CONC 31.5 % (32.0-36.0); MEAN PLATELET VOLUME 9.9 FL (7.0-11.0); PLATELET COUNT 344 TH/MM3 (150-450); WHITE BLOOD COUNT 9.1 TH/MM3 (4.0-11.0)
[2018-01-21] MEDS: SODIUM CHLORIDE 0.9% FLUSH 10 ML FLUSH IV FLUSH SCH ×2 (07:41→20:15)
[2018-01-21 07:55] LABS: BICARBONATE 28.1 MEQ/L (21.0-32.0); CALCIUM 8.7 MG/DL (8.5-10.1); CREATININE 1.48 MG/DL (0.60-1.30)
[2018-01-21] MEDS: CHLORHEXIDINE 0.12% (ORAL KIT) 15 ML CUP MT SCH ×2 (08:00→20:15)
[2018-01-21 08:10] LABS: DIGOXIN 1.1 NG/ML (0.8-2.0)
[2018-01-21] MEDS: LACTULOSE SYRUP 20 GM/30 ML CUP PO SCH ×4 (08:24→20:15)
[2018-01-21] MEDS: DOCUSATE SODIUM 50 MG/SENNA 8.6 MG TAB PO SCH ×2 (08:25→20:16)
[2018-01-21] MEDS: BETHANECHOL CHL 25 MG TAB PO SCH (08:25)
[2018-01-21] MEDS: SERTRALINE HCL 50 MG TAB PO SCH ×2 (08:25→20:16)
[2018-01-21] MEDS: CEFUROXIME AXETIL 500 MG TAB PO SCH ×2 (08:25→20:15)
[2018-01-21] MEDS: POTASSIUM BICARBONATE 25 MEQ EFFERVESCENT TAB NG SCH ×2 (08:25→20:14)
[2018-01-21] MEDS: FUROSEMIDE 40 MG TAB NG SCH (08:25)
[2018-01-21] MEDS: APIXABAN 2.5 MG TABLET PO SCH ×2 (08:25→20:15)
[2018-01-21] MEDS: DIGOXIN SOLUTION 0.125 MG/2.5 ML CUP PO SCH (08:25)
[2018-01-21] MEDS: AMIODARONE 200 MG TAB PO SCH (08:25)
[2018-01-21] MEDS: ALLOPURINOL 100 MG TAB PO SCH (08:25)
[2018-01-21] MEDS: LANSOPRAZOLE SOLUTAB 30 MG TAB NG SCH (08:25)
[2018-01-21] MEDS: POLYETHYLENE GLYCOL 17 GM PKG PO SCH ×2 (08:26→20:16)
[2018-01-21] MEDS: INSULIN ASPART SUPPLEMENTAL SCALE SQ SCH ×4 (08:26→20:16)
[2018-01-21] MEDS: SODIUM HYPOCHLORITE 0.125% 500 ML BTL TOPICAL SCH (08:26)
[2018-01-21] MEDS: INSULIN DETEMIR 100 UNITS/ML VIAL SQ SCH ×2 (08:27→20:16)
[2018-01-21] MEDS: COLLAGENASE OINT 30 GM TUBE TOPICAL SCH (08:27)
[2018-01-21] MEDS: DEXTROSE 5%-NACL 0.225% INJ 1,000 ML IV SCH ×3 (08:39→23:42)
--- NOTE | 2018-01-21 13:57 | HHI.NPPN ---
Subjective History of Present Illness 72 year old male with Chf/Atrial tachycardia/Afib admitted with Tachyarrhythmia Objective Data Data Vital Signs Date Time Temp Pulse Resp B/P (MAP) Pulse Ox O2 Delivery O2 Flow Rate FiO2 01/21/18 09:21 92 21 01/21/18 08:14 97.8 102 16 132/72 (92) 94 01/21/18 04:00 98.2 131 20 143/67 (92) 94 01/21/18 04:00 133 01/21/18 00:00 98.0 132 20 120/71 (87) 94 01/21/18 00:00 124 01/21/18 00:00 Nasal Cannula 2.00 01/20/18 20:00 Nasal Cannula 2.00 01/20/18 20:00 97.5 131 20 117/92 (100) 93 01/20/18 20:00 120 01/20/18 18:46 110 01/20/18 16:00 98.5 134 17 120/92 (101) 90 01/20/18 16:00 109 01/20/18 15:50 96 21 -: 01/21/18 0630 01/21/18 0630 Physical Exam General Appearance: Well Developed, Well Nourished, No Acute Distress, Comfortable Neck Neck Exam: Neck Supple Pulmonary Resp Exam: No Distress, Crackles, Rhonchi, Decreased Bases, Diminished Breath Sounds Cardiology CV Exam: Arrhythmia Gastrointestinal/Abdomen GI Exam: Soft, Non-Tender, Bowel Sounds Present Extremeties Extremities Exam: Moderate Edema, Pitting Edema Neurologic Neuro Exam: Alert, Awake Assessment/Plan Problem List: (1) Acute renal failure ICD Codes: N17.9 - Acute kidney failure, unspecified Status: Acute Plan: Patient had cardiogenic shock and low blood pressure contributing, and cardiorenal syndrome Plan is to cardiovert him once he is stable on Eliquis He has underlying tachyarrhythmia Atrial fibrillation/atrial tachycardia s/p cardiac Ablation Stable renal function. Hypernatremia is noted, likely due to loop diuretic. Lasix on PO. Needs water. Cr 1.4 Na 149 if dc can be followed in clinic (2) Chronic kidney disease, stage III (moderate) ICD Codes: N18.3 - Chronic kidney disease, stage III (moderate) Status: Acute Plan: Baseline care around 1.7 (3) Congestive heart failure ICD Codes: I50.9 - Heart failure, unspecified Status: Acute Plan: He is in cardiogenic shock low blood pressure causing the cardiorenal syndrome (4) PAF (paroxysmal atrial fibrillation) ICD Codes: I48.0 - Paroxysmal atrial fibrillation Plan: Cardiology was following (5) Diabetes ICD Codes: E11.9 - Diabetes Status: Chronic Plan: Monitor blood glucose (6) Acute on chronic systolic CHF (congestive heart failure) ICD Codes: I50.23 - Acute on chronic systolic (congestive) heart failure Problem Qualifiers (1) Acute renal failure: Qualified Codes: N17.8 - Other acute kidney failure (2) Congestive heart failure: Qualified Codes: I50.9 - Heart failure, unspecified Susan Solo MD Jan 21, 2018 13:57
--- NOTE | 2018-01-21 15:02 | HHI.PR ---
Subjective Remarks Patient is awake but still very confused. Not eating. Pulling out IVs. No family to make decisions. Objective Vitals Vital Signs Date Time Temp Pulse Resp B/P (MAP) Pulse Ox O2 Delivery O2 Flow Rate FiO2 01/21/18 09:21 92 21 01/21/18 08:14 97.8 102 16 132/72 (92) 94 01/21/18 04:00 98.2 131 20 143/67 (92) 94 01/21/18 04:00 133 01/21/18 00:00 98.0 132 20 120/71 (87) 94 01/21/18 00:00 124 01/21/18 00:00 Nasal Cannula 2.00 01/20/18 20:00 Nasal Cannula 2.00 01/20/18 20:00 97.5 131 20 117/92 (100) 93 01/20/18 20:00 120 01/20/18 18:46 110 01/20/18 16:00 98.5 134 17 120/92 (101) 90 01/20/18 16:00 109 01/20/18 15:50 96 21 I/O 01/20/18 01/20/18 01/20/18 01/21/18 01/21/18 01/21/18 07:00 15:00 23:00 07:00 15:00 23:00 Intake Total 420 ml 340 ml Output Total 650 ml 3 ml Balance -230 ml 340 ml -3 ml Intake Oral 420 ml 340 ml Output Urine Total 650 ml 3 ml # Voids 2 # Bowel Movements 5 1 3 Result Diagram: 01/21/1830 01/21/18 0630 Objective Remarks GENERAL: Morbidly obese male in no acute distress. CARDIOVASCULAR: Normal rate and regular rhythm without murmurs, gallops, or rubs. RESPIRATORY: Upper lung hernández are clear to auscultation. GASTROINTESTINAL: Abdomen morbidly obese. Nontender. No guarding NEUROLOGICAL: Awake, alert to self only. A/P Problem List: (1) Acute on chronic systolic CHF (congestive heart failure) ICD Code: I50.23 - Acute on chronic systolic (congestive) heart failure (2) PAF (paroxysmal atrial fibrillation) ICD Code: I48.0 - Paroxysmal atrial fibrillation (3) Acute kidney injury superimposed on chronic kidney disease ICD Code: N17.9 - Acute kidney failure, unspecified; N18.9 - Chronic kidney disease, unspecified (4) Hypothyroidism ICD Code: E03.9 - Hypothyroidism Status: Acute (5) Diabetes ICD Code: E11.9 - Diabetes Status: Chronic (6) Hyperkalemia ICD Code: E87.5 - Hyperkalemia Status: Acute Assessment and Plan 72-year-old male admitted with A. fib with RVR. Patient underwent cardiac ablation, respiratory failure postoperatively he was intubated. Status post PEA arrest. Concern for aspiration event. Patient was extubated. Prolonged ICU course. He has been downgraded to the floor. 01/21: Patient remained encephalopathic, questionable anoxic injury. Not eating or drinking enough. Calorie count ongoing. Suspect he needs a PEG. He pulled out NGT. Hydrate with IVF for one more day and follow progress. No family to make decisions regarding feeding tube. May need another NGT or dobhoff but he is taking them out. HR uncontrolled, increase Cardizem to 60 mg Q6Hhrs. Acute hypoxic and hypercarbic respiratory failure MUNA -nocturnal CPAP 8 cm H2O Moderate right pleural effusion Extubated 01/02. reintubated 01/07 during PEA arrest, extubated again 01/12/18 wean fio2 for goal spo2 > 90% Nebs as needed EzPAP, Acapella Chronic diastolic heart failure, with exacerbation ejection fraction 45-50% recurrent atrial fibrillation with rapid ventricular response s/p PEA arrest 01/07 Status post ablation for A. fib/flutter Hypertension Dyslipidemia Continue amiodarone 200 mg by mouth daily Received IV digoxin and IV metoprolol 01/14 digoxin 0.125 mg p.o. daily Increase Cardizem 60 mg p.o. every 6 hours. Holding diltiazem 240 mg p.o. daily/ home medication Continue atorvastatin 40 mg p.o. daily for his lipidemia At home on fish oil/cholecalciferol 1200/1000 1 tablet twice daily/home medication Holding ramipril 5 mg p.o. daily for hypertension with acute kidney injury Dr. Ramirez evaluated no further plans at this time Hold lasix. He appear dry on exam Encephalopathy,? Anoxic injury: Depression/anxiety Chronic narcotic use continue sertraline 50 mg twice daily/home medication for depression Continue pramipexole 0.5 mg p.o. daily for extrapyramidal side effects Currently holding buspirone 5 mg 3 times daily anxiety On oxycodone/acetaminophen 5/325 1 - 2 tablets every 4 hours as needed pain PT/OT/speech He remains encephalopathic Gastroesophageal reflux disease Elevated transaminases Ileus Sigmoid diverticulosis Internal/external hemorrhoids Advance diet per speech therapy recommendations. Not tolerating enough p.o. nutrition yet. Continue NGT. If no improvement, will need to discuss with family regarding permanent tube feeding. Docusate sodium/senna 1 tablet twice daily for bowel regimen with polyethylene glycol 17 g twice daily and lactulose 30 cc 4 times daily Follow transaminases intermittently is likely congestion. Further workup and On metoclopramide 5 mg IV every 8 hours and erythromycin [address] abdomen/pelvis revealed dilated small and large bowel. Colonoscopy by Dr. Bella/revealed sigmoid diverticulosis. Decompression of colon. Internal and external hemorrhoids. BPH/overflow Continue doxazosin 4 mg daily and bethanechol 25 mg daily Diabetes mellitus Hypothyroidism Low testosterone Currently on insulin detemir 4 units twice daily with NovoLog sliding scale insulin/low regimen before meals at bedtime At home on insulin glargine 12 units twice daily with sliding scale insulin Continue levothyroxine 125 mcg p.o. daily. TSH 3.06 Holding testosterone Acute kidney injury likely secondary to cardiorenal syndrome Renal cyst right 2.2 cm Followed by nephrology. Monitor urine output Accurate I's and O's. Renal ultrasound with no hydronephrosis. Right renal cyst 2.2 cm. Rare eosinophils urine. Hyponatremia: - Need free water but not taking enough PO. Continue D5 with 1/4 NS. F/U BMP Chronic apixaban use Normocytic normochromic anemia Currently renally dose of 2.5 mg twice daily. Monitor CBC daily. Follow trends Probable pneumonia/E. coli in sputum Sensitivity profile noted. Switch to cefuroxime. Debility: - Secondary to comorbid conditions above. Patient will need SNF placement. Continue rehab efforts. Prophylaxis -GI -Lansoprazole -DVT -SCD/apixaban Discharge Planning Maynor Combs MD Jan 21, 2018 15:02
[2018-01-21] MEDS ORDERED: DILTIAZEM HCL 30 MG TAB PO ONE (15:15)
[2018-01-21] MEDS: DOXAZOSIN MESYLATE 4 MG TAB PO SCH (20:15)
[2018-01-21] MEDS: ATORVASTATIN 40 MG TAB PO SCH (20:16)
[2018-01-21] MEDS: PRAMIPEXOLE DIHYDROCHLORIDE 0.25 MG TAB PO SCH (20:16)
[2018-01-22] VITALS (11 sets, daily range): BP systolic 109–135; BP diastolic 58–78; PULSE 87–132; RESP 17–20; TEMP 97.2–98; O2SAT 96–100
[2018-01-22] MEDS: DILTIAZEM HCL 30 MG TAB PO SCH ×4 (03:28→21:00)
[2018-01-22] MEDS: FREE WATER G-TUBE SCH ×3 (03:29→18:00)
[2018-01-22] MEDS: METOCLOPRAMIDE HCL 10 MG/2 ML VIAL IV PUSH SCH ×3 (05:34→22:00)
[2018-01-22] MEDS: ERYTHROMYCIN EC 250 MG TABEC PO SCH ×3 (05:35→22:00)
[2018-01-22] MEDS: LEVOTHYROXINE SODIUM 125 MCG TAB PO SCH (05:35)
[2018-01-22] MEDS: CHLORHEXIDINE 0.12% (ORAL KIT) 15 ML CUP MT SCH ×2 (08:00→20:00)
[2018-01-22] MEDS: INSULIN ASPART SUPPLEMENTAL SCALE SQ SCH ×4 (08:43→21:00)
[2018-01-22] MEDS: SODIUM CHLORIDE 0.9% FLUSH 10 ML FLUSH IV FLUSH SCH ×2 (08:44→21:00)
[2018-01-22] MEDS: SODIUM HYPOCHLORITE 0.125% 500 ML BTL TOPICAL SCH (08:45)
[2018-01-22] MEDS: INSULIN DETEMIR 100 UNITS/ML VIAL SQ SCH ×2 (08:45→21:00)
[2018-01-22] MEDS: COLLAGENASE OINT 30 GM TUBE TOPICAL SCH (08:45)
[2018-01-22] MEDS: DOCUSATE SODIUM 50 MG/SENNA 8.6 MG TAB PO SCH ×2 (09:00→21:00)
[2018-01-22] MEDS: AMIODARONE 200 MG TAB PO SCH (09:00)
[2018-01-22] MEDS: ALLOPURINOL 100 MG TAB PO SCH (09:00)
[2018-01-22] MEDS: CEFUROXIME AXETIL 500 MG TAB PO SCH ×2 (09:00→21:00)
[2018-01-22] MEDS: APIXABAN 2.5 MG TABLET PO SCH ×2 (09:00→21:00)
[2018-01-22] MEDS: POTASSIUM BICARBONATE 25 MEQ EFFERVESCENT TAB NG SCH ×2 (09:00→21:00)
[2018-01-22] MEDS: LACTULOSE SYRUP 20 GM/30 ML CUP PO SCH ×4 (09:00→21:00)
[2018-01-22] MEDS: DIGOXIN SOLUTION 0.125 MG/2.5 ML CUP PO SCH (09:00)
[2018-01-22] MEDS: LANSOPRAZOLE SOLUTAB 30 MG TAB NG SCH (09:00)
[2018-01-22] MEDS: SERTRALINE HCL 50 MG TAB PO SCH ×2 (09:00→21:00)
[2018-01-22] MEDS: BETHANECHOL CHL 25 MG TAB PO SCH (09:00)
[2018-01-22] MEDS: POLYETHYLENE GLYCOL 17 GM PKG PO SCH ×2 (09:00→21:00)
[2018-01-22 09:39] LABS: HEMATOCRIT 41.4 % (39.0-51.0); HEMOGLOBIN 13.1 GM/DL (13.0-17.0); MEAN CELL VOLUME 84.3 FL (80.0-100.0); MEAN CORPUSCULAR HEMOGLOBIN 26.8 PG (27.0-34.0); MEAN CORPUSCULAR HGB CONC 31.7 % (32.0-36.0); MEAN PLATELET VOLUME 9.9 FL (7.0-11.0); PLATELET COUNT 322 TH/MM3 (150-450); RED BLOOD COUNT 4.91 MIL/MM3 (4.50-5.90); RED CELL DISTRIBUTION WIDTH 22.4 % (11.6-17.2); WHITE BLOOD COUNT 9.7 TH/MM3 (4.0-11.0)
[2018-01-22 09:43] LABS: CALCIUM 8.7 MG/DL (8.5-10.1); CREATININE 1.48 MG/DL (0.60-1.30)
--- NOTE | 2018-01-22 15:08 | HHI.PR ---
Subjective Remarks Patient has been pulling out IVs. Not cooperating. Spitting out medications. He is not eating. Objective Vitals Vital Signs Date Time Temp Pulse Resp B/P (MAP) Pulse Ox O2 Delivery O2 Flow Rate FiO2 01/22/18 12:15 98.0 132 18 121/75 (90) 96 01/22/18 10:16 119 01/22/18 10:16 2.00 01/22/18 08:52 97 21 01/22/18 07:45 97.4 114 20 109/68 (82) 100 01/22/18 04:00 Nasal Cannula 2.00 01/22/18 04:00 118 01/22/18 04:00 98.0 87 19 135/58 (83) 96 01/22/18 00:00 98.0 132 19 117/72 (87) 97 01/22/18 00:00 123 01/22/18 00:00 Nasal Cannula 2.00 01/21/18 21:51 97.9 98 123/66 (85) 96 01/21/18 20:50 95 01/21/18 20:00 Nasal Cannula 2.00 01/21/18 20:00 130 01/21/18 16:14 97.9 103 16 118/74 (89) 95 I/O 01/21/18 01/21/18 01/21/18 01/22/18 01/22/18 01/22/18 07:00 15:00 23:00 07:00 15:00 23:00 Intake Total 400 ml 220 ml 1698 ml Output Total 3 ml 1200 ml Balance -3 ml 400 ml -980 ml 1698 ml Intake Oral 220 ml 90 ml IV Total 400 ml 1608 ml Output Urine Total 3 ml 1200 ml # Voids 2 # Bowel Movements 3 3 1 Result Diagram: 01/22/18 0806 01/22/18 0806 Objective Remarks GENERAL: Morbidly obese male in no acute distress. CARDIOVASCULAR: Normal rate and regular rhythm without murmurs, gallops, or rubs. RESPIRATORY: Upper lung hernández are clear to auscultation. GASTROINTESTINAL: Abdomen morbidly obese. Nontender. No guarding NEUROLOGICAL: Awake, alert to self only. Very confused. A/P Problem List: (1) Acute on chronic systolic CHF (congestive heart failure) ICD Code: I50.23 - Acute on chronic systolic (congestive) heart failure (2) PAF (paroxysmal atrial fibrillation) ICD Code: I48.0 - Paroxysmal atrial fibrillation (3) Acute kidney injury superimposed on chronic kidney disease ICD Code: N17.9 - Acute kidney failure, unspecified; N18.9 - Chronic kidney disease, unspecified (4) Hypothyroidism ICD Code: E03.9 - Hypothyroidism Status: Acute (5) Diabetes ICD Code: E11.9 - Diabetes Status: Chronic (6) Hyperkalemia ICD Code: E87.5 - Hyperkalemia Status: Acute Assessment and Plan 72-year-old male admitted with A. fib with RVR. Patient underwent cardiac ablation, respiratory failure postoperatively he was intubated. Status post PEA arrest. Concern for aspiration event. Patient was extubated. Prolonged ICU course. He has been downgraded to the floor. Patient with profound encephalopathy, confused, ? anoxic injury. Not cooperating with treatment. 01/22: Patient remained encephalopathic, questionable anoxic injury. Not eating or drinking enough. Calorie count ongoing. Suspect he needs a PEG if goals of care is aggressive. Discussed with palliative care. No family to make decisions for him. All deferred to caregiver Corinna who will have a meeting with palliative care tomorrow. Patient appears very dehydrated. Will try a dose of Haldol IM and schedule low dose Seroquel to help with agitation symptoms. He does need IV fluid. Hypernatremic He pulled out NGT a couple days ago. I am concerned even if he gets PEG tube, he will pulled that out as well. Further decisions per discussion from palliative care and caregiver. Acute hypoxic and hypercarbic respiratory failure MUNA -nocturnal CPAP 8 cm H2O Moderate right pleural effusion Extubated 01/02. reintubated 01/07 during PEA arrest, extubated again 01/12/18 wean fio2 for goal spo2 > 90% Nebs as needed EzPAP, Acapella Chronic diastolic heart failure, with exacerbation ejection fraction 45-50% recurrent atrial fibrillation with rapid ventricular response s/p PEA arrest 01/07 Status post ablation for A. fib/flutter Hypertension Dyslipidemia Continue amiodarone 200 mg by mouth daily Received IV digoxin and IV metoprolol 01/14 digoxin 0.125 mg p.o. daily Increase Cardizem 60 mg p.o. every 6 hours. Holding diltiazem 240 mg p.o. daily/ home medication Continue atorvastatin 40 mg p.o. daily for his lipidemia At home on fish oil/cholecalciferol 1200/1000 1 tablet twice daily/home medication Holding ramipril 5 mg p.o. daily for hypertension with acute kidney injury Dr. Ramirez evaluated no further plans at this time Hold lasix. He appear dry on exam Encephalopathy,? Anoxic injury: Depression/anxiety Chronic narcotic use continue sertraline 50 mg twice daily/home medication for depression Continue pramipexole 0.5 mg p.o. daily for extrapyramidal side effects Currently holding buspirone 5 mg 3 times daily anxiety On oxycodone/acetaminophen 5/325 1 - 2 tablets every 4 hours as needed pain PT/OT/speech He remains encephalopathic Gastroesophageal reflux disease Elevated transaminases Ileus Sigmoid diverticulosis Internal/external hemorrhoids Advance diet per speech therapy recommendations. Not tolerating enough p.o. nutrition yet. Continue NGT. If no improvement, will need to discuss with family regarding permanent tube feeding. Docusate sodium/senna 1 tablet twice daily for bowel regimen with polyethylene glycol 17 g twice daily and lactulose 30 cc 4 times daily Follow transaminases intermittently is likely congestion. Further workup and On metoclopramide 5 mg IV every 8 hours and erythromycin [address] abdomen/pelvis revealed dilated small and large bowel. Colonoscopy by Dr. Bella/revealed sigmoid diverticulosis. Decompression of colon. Internal and external hemorrhoids. BPH/overflow Continue doxazosin 4 mg daily and bethanechol 25 mg daily Diabetes mellitus Hypothyroidism Low testosterone Currently on insulin detemir 4 units twice daily with NovoLog sliding scale insulin/low regimen before meals at bedtime At home on insulin glargine 12 units twice daily with sliding scale insulin Continue levothyroxine 125 mcg p.o. daily. TSH 3.06 Holding testosterone Acute kidney injury likely secondary to cardiorenal syndrome Renal cyst right 2.2 cm Followed by nephrology. Monitor urine output Accurate I's and O's. Renal ultrasound with no hydronephrosis. Right renal cyst 2.2 cm. Rare eosinophils urine. Hyponatremia: - Need free water but not taking enough PO. Continue D5 with 1/4 NS. F/U BMP Chronic apixaban use Normocytic normochromic anemia Currently renally dose of 2.5 mg twice daily. Monitor CBC daily. Follow trends Probable pneumonia/E. coli in sputum Sensitivity profile noted. Switch to cefuroxime. Debility: - Secondary to comorbid conditions above. Patient will need SNF placement. Continue rehab efforts. Prophylaxis -GI -Lansoprazole -DVT -SCD/apixaban Discharge Planning Not stable, further plans pending discussion from palliative care and caregiver. May need feeding tube. May be appropriate for hospice if goals of care aligned. Maynor Combs MD Jan 22, 2018 15:08
[2018-01-22] MEDS ORDERED: HALOPERIDOL LACTATE 5 MG/ML AMP IM ONE (15:15)
--- NOTE | 2018-01-22 15:51 | HHI.HCPN ---
Reason for visit a. To assist with evaluation and management of symptoms including: Encephalopathy, dyspnea, dysphasia, agitation b. To assist medical decision maker(s) with: better understanding of current medical conditions; weighing benefits/burdens of medical treatment options; making medical treatment decisions. . Subjective/Interval History Patient is a 72-year-old male with CHF, atrial tachycardia and atrial fibrillation who was admitted with tachyarrhythmia. Patient underwent cardiac ablation; he was intubated postoperatively secondary to respiratory failure. Status post PEA arrest and prolonged ICU course. Follow up visit for symptom management of encephalopathy, dyspnea and dysphasia as well as clarification of medical treatment goals. Patient seen and assessed in room 1432. Denies dyspnea or pain. He remains encephalopathic with a questionable anoxic brain injury. He is able to tell me his name but does not know where he is or what circumstances brought him here. He remains confused and expresses concern that he does not know that information ; intermittently agitated. He has pulled out his NGT as well as IV access. Patient repeatedly states, "Something is yuck" and fingers are noted to have feces on them. Oral intake has been inadequate; refusing medication. Dietary was consulted for calorie count. I suspect the patient will require a PEG tube if goals remain aggressive, but I am concerned he will pull it out. Speech therapy is following and has made recommendations for a pured diet with honey consistency thickened liquids. ST agrees the patient may benefit from bypass feedings long- term secondary to cognitive deficits. Recent lab work was reviewed. CBC relatively stable. Sodium: 148, potassium 3.9, chloride 111, carbon dioxide 27, BUN 29, creatinine 1.48, GFR 47, glucose 216, calcium 8.7 Wound culture + Henrietta albicans; wound care following. . Family/friend interactions Search for family members has been exhausted. Patient's hired caregiver, Corinna Powell, stated she would be willing to act in the role of healthcare proxy s/p accurints report that did not identify any family members who were willing to act in the role of health care proxy decision maker. Palliative care spoke to Corinna via telephone. An update was provided on the patient's clinical condition. Medical treatment goals were reviewed as well as the process of cardiopulmonary resuscitation. If goals are to remain aggressive, patient will require PEG tube placement. However, the patient will likely pull it out. We discussed that given the patient's ongoing encephalopathy, it is unlikely that he will actively participate in rehab. Hospice was introduced. HCP was is appropriately tearful stating "I thought he would go to rehab for a few weeks and then come home again." Corinna would like to consider the options overnight; tentative plan to meet with palliative care tomorrow 01/23/18 at 10 AM. She requests that the patient remain a FULL CODE until further conversations with palliative care. . Advance Directives Living Will: Never completed Health Care Surrogate: Never completed Durable Power of [employer] Senior Specialist: Never completed Objective Vital Signs Date Time Temp Pulse Resp B/P (MAP) Pulse Ox O2 Delivery O2 Flow Rate FiO2 01/22/18 12:15 98.0 132 18 121/75 (90) 96 01/22/18 10:16 119 01/22/18 10:16 2.00 01/22/18 08:52 97 21 01/22/18 07:45 97.4 114 20 109/68 (82) 100 01/22/18 04:00 Nasal Cannula 2.00 01/22/18 04:00 118 01/22/18 04:00 98.0 87 19 135/58 (83) 96 01/22/18 00:00 98.0 132 19 117/72 (87) 97 01/22/18 00:00 123 01/22/18 00:00 Nasal Cannula 2.00 01/21/18 21:51 97.9 98 123/66 (85) 96 01/21/18 20:50 95 01/21/18 20:00 Nasal Cannula 2.00 01/21/18 20:00 130 01/21/18 16:14 97.9 103 16 118/74 (89) 95 Intake & Output 01/22/18 01/22/18 07:00 19:00 Intake Total 1698 ml Balance 1698 ml Intake Oral 90 ml IV Total 1608 ml # Voids 2 # Bowel Movements 1 . Physical Exam CONSTITUTIONAL/GENERAL: This is a confused, elderly male patient in no acute distress. TUBES/LINES/DRAINS: Condom catheter SKIN: No jaundice, rashes, or lesions. Few areas of ecchymosis to upper extremities, as well as inner thighs. Dressing visible to sacrum and buttocks reported significant wounds beneath. Skin warm and dry. Generalized pallor. Feces on fingers and under fingernails. HEAD: Atraumatic. Normocephalic. EYES: Pupils equal and round and reactive. Extraocular motions intact. No scleral icterus. No injection or drainage. Fundi not examined. ENT: Hard of hearing. Nose without bleeding or purulent drainage. Poor dentition. Oral mucosa dry. NECK: Trachea midline. Supple, nontender. No palpable thyroid enlargement or nodularity. CARDIOVASCULAR: Irregular rate and rhythm. No murmur. No JVD. Peripheral pulses symmetric. RESPIRATORY/CHEST: Symmetric, unlabored respirations on 2L via NC. CTA. Breath sounds equal bilaterally. GASTROINTESTINAL: Abdomen soft, round/obese, non-tender, nondistended. No hepato -splenomegaly, or palpable masses. No guarding. Bowel sounds normoactive. GENITOURINARY: Without palpable bladder distension. Condom catheter MUSCULOSKELETAL: Extremities without clubbing, cyanosis, or edema. NEUROLOGICAL: Awake. Oriented to person only. Patient does not know where he is and has no insight into hospitalization. Does not answer all questions; speech at time is nonsensical. Does move all 4 extremities with generalized weakness. Moving all extremities 4 PSYCHIATRIC: Somewhat flat, lethargic, confused. Intermittently agitated. Difficult to assess given clinical condition. . Diagnostic Tests Laboratory Laboratory Tests Test 01/20/18 05:20 01/21/18 06:30 01/22/18 08:06 White Blood Count 8.8 TH/MM3 (4.0-11.0) 9.1 TH/MM3 (4.0-11.0) 9.7 TH/MM3 (4.0-11.0) Red Blood Count 4.29 MIL/MM3 (4.50-5.90) 4.40 MIL/MM3 (4.50-5.90) 4.91 MIL/MM3 (4.50-5.90) Hemoglobin 11.5 GM/DL (13.0-17.0) 11.7 GM/DL (13.0-17.0) 13.1 GM/DL (13.0-17.0) Hematocrit 35.6 % (39.0-51.0) 37.2 % (39.0-51.0) 41.4 % (39.0-51.0) Mean Corpuscular Volume 83.0 FL (80.0-100.0) 84.5 FL (80.0-100.0) 84.3 FL (80.0-100.0) Mean Corpuscular Hemoglobin 26.8 PG (27.0-34.0) 26.6 PG (27.0-34.0) 26.8 PG (27.0-34.0) Mean Corpuscular Hemoglobin Concent 32.3 % (32.0-36.0) 31.5 % (32.0-36.0) 31.7 % (32.0-36.0) Red Cell Distribution Width 21.4 % (11.6-17.2) 22.0 % (11.6-17.2) 22.4 % (11.6-17.2) Platelet Count 305 TH/MM3 (150-450) 344 TH/MM3 (150-450) 322 TH/MM3 (150-450) Mean Platelet Volume 9.4 FL (7.0-11.0) 9.9 FL (7.0-11.0) 9.9 FL (7.0-11.0) Blood Urea Nitrogen 39 MG/DL (7-18) 34 MG/DL (7-18) 29 MG/DL (7-18) Creatinine 1.54 MG/DL (0.60-1.30) 1.48 MG/DL (0.60-1.30) 1.48 MG/DL (0.60-1.30) Random Glucose 168 MG/DL (74-106) 159 MG/DL (74-106) 216 MG/DL (74-106) Calcium Level 8.8 MG/DL (8.5-10.1) 8.7 MG/DL (8.5-10.1) 8.7 MG/DL (8.5-10.1) Sodium Level 150 MEQ/L (136-145) 149 MEQ/L (136-145) 148 MEQ/L (136-145) Potassium Level 4.1 MEQ/L (3.5-5.1) 4.1 MEQ/L (3.5-5.1) 3.9 MEQ/L (3.5-5.1) Chloride Level 112 MEQ/L (98-107) 113 MEQ/L (98-107) 111 MEQ/L (98-107) Carbon Dioxide Level 32.7 MEQ/L (21.0-32.0) 28.1 MEQ/L (21.0-32.0) 27.0 MEQ/L (21.0-32.0) Anion Gap 5 MEQ/L (5-15) 8 MEQ/L (5-15) 10 MEQ/L (5-15) Estimat Glomerular Filtration Rate 45 ML/MIN (>89) 47 ML/MIN (>89) 47 ML/MIN (>89) Digoxin Level 1.1 NG/ML (0.8-2.0) Hematology Comments . Result Diagram: 01/22/18 0801/22/18 0806 Microbiology Microbiology Date/Time Source Procedure Growth Status 01/20/18 09:55 Wound Buttock Gram Stain - Final Complete 01/20/18 09:55 Wound Culture - Final Henrietta Albicans Complete . Procedures 01/02 Extubated postprocedure 01/06 decompressive colonoscopy 01/07 reintubated during PEA arrest 01/12/18 extubated . Assessment and Plan Disease Oriented Problem List: (1) Acute on chronic systolic CHF (congestive heart failure) (2) CKD (chronic kidney disease) stage 3, GFR 30-59 ml/min (3) PAF (paroxysmal atrial fibrillation) (4) Hypothyroidism (5) Elevated troponin (6) Diabetes (7) Acute kidney injury superimposed on chronic kidney disease (8) Hypertension (9) Hyperlipidemia (10) Ileus Symptom Scale: (1) Dysphagia 0-10 Scale: Unable to quantify (2) Dyspnea 0-10 Scale: Unable to quantify (3) Encephalopathy 0-10 Scale: Unable to quantify (4) Agitation 0-10 Scale: Unable to quantify Pertinent Non-Medical Issues Psychosocial:Patient originally from [place], moved to [place] for fpc. Live-in caregiver has assisted him for about the past 5 years. She indicates he just before she started caring for him. She is not aware of any other family except for a cousin Alex [facility]. ex 's name is Olivia Otto. 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 Spiritual: Catholic kianna, will probably want janitorial services supervisor visits Legal:Patient is not currently able to make his own decisions due to confusion, medical conditions. Patient's hired caregiver, Corinna Powell, stated she would be willing to act in the role of healthcare proxy s/p accurints report that did not identify any family members who were willing to act in the role of health care proxy decision maker. Ethical issues impacting care: No ethical issues identified at this time. . Important Contacts Corinna Powell [phone] / [phone] . Prognosis This patient has had multiple recent hospitalizations for cardiac conditions with some respiratory complications. He has been intubated twice this admission. He also suffered an ileus. Due to advanced age and multiple chronic medical conditions he does remain at risk for ongoing complications and potential setbacks. He may require rehabilitation following this acute hospitalization. . Code Status: Full Code (By default) Plan * FULL CODE by default * Patient's hired caregiver, Corinna Powell, stated she would be willing to act in the role of healthcare proxy s/p accurints report that did not identify any family members who were willing to act in the role of health care proxy decision maker. * Palliative care spoke to Corinna via telephone. An update was provided on the patient's clinical condition. Medical treatment goals were reviewed as well as the process of cardiopulmonary resuscitation. If goals are to remain aggressive , patient will require PEG tube placement. However, the patient will likely pull it out. We discussed that given the patient's ongoing encephalopathy, it is unlikely that he will actively participate in rehab. Hospice was introduced. She is appropriately tearful stating "I thought he would go to rehab for a few weeks and then come home again." Corinna would like to consider the options overnight; tentative plan to meet with palliative care tomorrow 01/23 at 10 AM. She requests that the patient remain a FULL CODE until further conversations with palliative care. * Palliative care to tentatively meet with healthcare proxy (Corinna Powell) tomorrow 01/23/2018 at 10 AM * SYMPTOMS: --Dyspnea: Patient reported with chronic dyspnea and orthopnea. He has had episodes of heart failure and atrial fibrillation contributing to this. Status post medical extubation 2 this admission. Concern for aspiration. Patient denies dyspnea. On Ceftin and PRN nebulizer treatments --Dysphagia: Oral intake has been inadequate; refusing medication. Patient has pulled out NGT. Dietary was consulted for calorie count. I suspect the patient will require a PEG tube but he will likely pull it out. Speech therapy is following and has made recommendations for a pured diet with honey consistency thickened liquids. ST agrees the patient may benefit from bypass feedings long-term secondary to cognitive deficits. --Encephalopathy: Status post PEA arrest 4/3 with ROSC after about 10 minutes. Reported he was cognitively sharp prior to admission per caregiver though prior H&P's do note at times poor historian. Caregiver reports he was paying his own bills prior to this admission. Concern for anoxic injury. --Agitation: Patient pulled put NGT as well as IV access. Consider starting low dose Lorazepam 0.5mg or Haldol 1mg PRN if not contraindicated. Palliative care will continue to follow during hospital course as condition evolves, to assist patient/decision-maker with understanding of medical conditions, weighing benefits/burdens of treatment options, for clarification of goals of treatment. Additionally will assist with any symptoms of palliative concern. . Attestation To help prompt me to consider important information that might be impacting today's encounter and assessment, information from prior notes written by myself or my colleagues may have been "brought forward" into today's note. My signature on this note, however, is an attestation that I personally performed the exam, history, and/or decision-making noted today, and, unless otherwise indicated, the interactions with patient, family, and staff as well as the review of records all occurred today. I also attest that the listed assessment and stated plan reflect my best clinical judgment today based on the combination of historical information, prior notes, and today's exam/ interactions. When time spent is documented, it refers only to time spent today by the signer, or if indicated, combined time spent today by collaborating physician/nurse practitioner. . Sadie Lyon Jan 22, 2018 3:51 pm
[2018-01-22] MEDS: QUEtiapine FUMARATE 25 MG TAB PO SCH (21:00)
[2018-01-22] MEDS: PRAMIPEXOLE DIHYDROCHLORIDE 0.25 MG TAB PO SCH (21:00)
[2018-01-22] MEDS: DOXAZOSIN MESYLATE 4 MG TAB PO SCH (21:00)
[2018-01-22] MEDS: ATORVASTATIN 40 MG TAB PO SCH (21:00)
[2018-01-22] MEDS: DEXTROSE 5%-NACL 0.225% INJ 1,000 ML IV SCH (21:15)
[2018-01-23] VITALS (10 sets, daily range): BP systolic 121–149; BP diastolic 63–71; PULSE 75–118; RESP 18–20; TEMP 98–99.5; O2SAT 95–98
[2018-01-23] MEDS: DILTIAZEM HCL 30 MG TAB PO SCH ×4 (03:00→22:29)
[2018-01-23 05:20] LABS: BICARBONATE 17.6 MEQ/L (21.0-32.0); CALCIUM 8.2 MG/DL (8.5-10.1); CREATININE 1.54 MG/DL (0.60-1.30)
[2018-01-23] MEDS: FREE WATER G-TUBE SCH ×5 (05:49→23:51)
[2018-01-23] MEDS: LEVOTHYROXINE SODIUM 125 MCG TAB PO SCH (05:49)
[2018-01-23] MEDS: ERYTHROMYCIN EC 250 MG TABEC PO SCH ×3 (05:49→22:00)
[2018-01-23] MEDS: METOCLOPRAMIDE HCL 10 MG/2 ML VIAL IV PUSH SCH ×3 (05:49→22:00)
[2018-01-23] MEDS: DEXTROSE 5%-NACL 0.225% INJ 1,000 ML IV SCH ×2 (06:19→16:30)
[2018-01-23 06:45] LABS: HEMATOCRIT 39.7 % (39.0-51.0); HEMOGLOBIN 12.3 GM/DL (13.0-17.0); MEAN CELL VOLUME 83.3 FL (80.0-100.0); MEAN CORPUSCULAR HEMOGLOBIN 25.9 PG (27.0-34.0); MEAN CORPUSCULAR HGB CONC 31.1 % (32.0-36.0); MEAN PLATELET VOLUME 9.9 FL (7.0-11.0); PLATELET COUNT 321 TH/MM3 (150-450); RED BLOOD COUNT 4.76 MIL/MM3 (4.50-5.90); RED CELL DISTRIBUTION WIDTH 22.2 % (11.6-17.2); WHITE BLOOD COUNT 9.2 TH/MM3 (4.0-11.0)
[2018-01-23] MEDS: CHLORHEXIDINE 0.12% (ORAL KIT) 15 ML CUP MT SCH ×2 (08:00→20:00)
[2018-01-23] MEDS: AMIODARONE 200 MG TAB PO SCH (08:21)
[2018-01-23] MEDS: QUEtiapine FUMARATE 25 MG TAB PO SCH ×2 (08:21→22:30)
[2018-01-23] MEDS: INSULIN DETEMIR 100 UNITS/ML VIAL SQ SCH ×2 (08:23→22:28)
[2018-01-23] MEDS: INSULIN ASPART SUPPLEMENTAL SCALE SQ SCH ×4 (08:23→22:28)
[2018-01-23] MEDS: SODIUM CHLORIDE 0.9% FLUSH 10 ML FLUSH IV FLUSH SCH ×2 (08:23→21:00)
[2018-01-23] MEDS: CEFUROXIME AXETIL 500 MG TAB PO SCH ×2 (08:24→22:29)
[2018-01-23] MEDS: BETHANECHOL CHL 25 MG TAB PO SCH (08:24)
[2018-01-23] MEDS: LANSOPRAZOLE SOLUTAB 30 MG TAB NG SCH (08:24)
[2018-01-23] MEDS: DOCUSATE SODIUM 50 MG/SENNA 8.6 MG TAB PO SCH ×2 (08:24→21:00)
[2018-01-23] MEDS: LACTULOSE SYRUP 20 GM/30 ML CUP PO SCH ×4 (08:24→21:00)
[2018-01-23] MEDS: DIGOXIN SOLUTION 0.125 MG/2.5 ML CUP PO SCH (08:24)
[2018-01-23] MEDS: POTASSIUM BICARBONATE 25 MEQ EFFERVESCENT TAB NG SCH ×2 (08:24→21:00)
[2018-01-23] MEDS: POLYETHYLENE GLYCOL 17 GM PKG PO SCH ×2 (08:24→21:00)
[2018-01-23] MEDS: APIXABAN 2.5 MG TABLET PO SCH ×2 (08:24→22:30)
[2018-01-23] MEDS: SODIUM HYPOCHLORITE 0.125% 500 ML BTL TOPICAL SCH (08:25)
[2018-01-23] MEDS: COLLAGENASE OINT 30 GM TUBE TOPICAL SCH (08:25)
[2018-01-23] MEDS: ALLOPURINOL 100 MG TAB PO SCH (08:25)
[2018-01-23] MEDS: SERTRALINE HCL 50 MG TAB PO SCH ×2 (08:25→22:29)
--- NOTE | 2018-01-23 09:47 | HHI.HCPN ---
Reason for visit a. To assist with evaluation and management of symptoms including: Encephalopathy, dyspnea, dysphasia, agitation, pain b. To assist medical decision maker(s) with: better understanding of current medical conditions; weighing benefits/burdens of medical treatment options; making medical treatment decisions. . Subjective/Interval History Patient is a 72-year-old male with CHF, atrial tachycardia and atrial fibrillation who was admitted with tachyarrhythmia. Patient underwent cardiac ablation; he was intubated postoperatively secondary to respiratory failure. Status post PEA arrest and prolonged ICU course. Follow up visit for symptom management of encephalopathy, dyspnea, agitation and dysphasia as well as clarification of medical treatment goals. Patient seen and assessed in room 1432. Occupational therapy and physical therapy are also at bedside. He remains encephalopathic with a questionable anoxic brain injury. [place] to self and place this morning but otherwise is quite confused. Patient is moaning and grimacing stating, "It hurts. I can't do it." After further questions, patient is able to identify pain is secondary to wound on his buttocks. 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 Wound culture + Henrietta albicans. RN ( Denita) was notified and dressing was changed per wound care orders. Respirations are unlabored, no accessory muscle usage. Patient denies dyspnea. Pulse 75-118; Respirations 18-20; BP 122-149/ 63-70; T-max 99.5; oxygen saturations in the mid to high 90s on room air. Patient having ongoing agitation requiring non-violent restraints overnight, pulling out invasive lines. Patient received Haldol 2 mg IM 1 last night and was started on Seroquel 25mg PO twice daily. Recent lab work was reviewed. = WBC: 9.2, hemoglobin 12.3, hematocrit 39.7, platelets 321 = Sodium: 141, potassium 3.9, chloride 115, carbon dioxide 17.6, BUN 25, creatinine 1.54, GFR 45, glucose 251, calcium 8.2 Oral intake has been inadequate; refusing medication. Dietary was consulted for calorie count. I suspect the patient will require a PEG tube if goals remain aggressive, but I am concerned he will pull it out. Speech therapy is following and has made recommendations for a pured diet with honey consistency thickened liquids. ST agrees the patient may benefit from bypass feedings long- term secondary to cognitive deficits. . Advance Directives Living Will: Never completed Health Care Surrogate: Never completed Durable Power of Pack Changer: Never completed Objective Vital Signs Date Time Temp Pulse Resp B/P (MAP) Pulse Ox O2 Delivery O2 Flow Rate FiO2 01/23/18 08:00 Room Air 01/23/18 08:00 107 01/23/18 07:40 99.5 113 20 146/68 (94) 98 01/23/18 04:00 118 01/23/18 04:00 98.0 79 18 122/63 (82) 97 01/23/18 00:05 115 01/23/18 00:00 98.5 75 18 149/70 (96) 95 01/22/18 20:50 117 01/22/18 20:00 97.4 98 17 117/75 (89) 97 01/22/18 20:00 Room Air 01/22/18 17:30 98 21 01/22/18 16:05 97.2 131 20 124/78 (93) 98 01/22/18 16:00 132 01/22/18 12:15 98.0 132 18 121/75 (90) 96 01/22/18 10:16 119 01/22/18 10:16 2.00 Intake & Output 01/23/18 01/23/18 06:59 18:59 Intake Total 1120 ml Balance 1120 ml Intake Oral 120 ml IV Total 1000 ml # Voids 3 # Bowel Movements 3 Physical Exam CONSTITUTIONAL/GENERAL: This is a confused, elderly male patient in no acute distress. TUBES/LINES/DRAINS: Condom catheter SKIN: No jaundice, rashes, or lesions. Few areas of ecchymosis to upper extremities, as well as inner thighs. Dressing visible to sacrum and buttocks reported significant wounds beneath. Skin warm and dry. Generalized pallor. Feces on fingers and under fingernails. HEAD: Atraumatic. Normocephalic. EYES: Pupils equal and round and reactive. Extraocular motions intact. No scleral icterus. No injection or drainage. Fundi not examined. ENT: Hard of hearing. Nose without bleeding or purulent drainage. Poor dentition. Oral mucosa dry. NECK: Trachea midline. Supple, nontender. No palpable thyroid enlargement or nodularity. CARDIOVASCULAR: Irregular rate and rhythm. No murmur. No JVD. Peripheral pulses symmetric. RESPIRATORY/CHEST: Symmetric, unlabored respirations on 2L via NC. CTA. Breath sounds equal bilaterally. GASTROINTESTINAL: Abdomen soft, round/obese, non-tender, nondistended. No hepato -splenomegaly, or palpable masses. No guarding. Bowel sounds normoactive. GENITOURINARY: Without palpable bladder distension. Condom catheter MUSCULOSKELETAL: Extremities without clubbing, cyanosis, or edema. NEUROLOGICAL: Awake. Oriented to person only. Patient does not know where he is and has no insight into hospitalization. Does not answer all questions; speech at time is nonsensical. Does move all 4 extremities with generalized weakness. Moving all extremities 4 PSYCHIATRIC: Somewhat flat, lethargic, confused. Intermittently agitated. Difficult to assess given clinical condition. . Diagnostic Tests Laboratory Laboratory Tests Test 01/21/18 06:30 01/22/18 08:06 01/23/18 04:21 White Blood Count 9.1 TH/MM3 (4.0-11.0) 9.7 TH/MM3 (4.0-11.0) 9.2 TH/MM3 (4.0-11.0) Red Blood Count 4.40 MIL/MM3 (4.50-5.90) 4.91 MIL/MM3 (4.50-5.90) 4.76 MIL/MM3 (4.50-5.90) Hemoglobin 11.7 GM/DL (13.0-17.0) 13.1 GM/DL (13.0-17.0) 12.3 GM/DL (13.0-17.0) Hematocrit 37.2 % (39.0-51.0) 41.4 % (39.0-51.0) 39.7 % (39.0-51.0) Mean Corpuscular Volume 84.5 FL (80.0-100.0) 84.3 FL (80.0-100.0) 83.3 FL (80.0-100.0) Mean Corpuscular Hemoglobin 26.6 PG (27.0-34.0) 26.8 PG (27.0-34.0) 25.9 PG (27.0-34.0) Mean Corpuscular Hemoglobin Concent 31.5 % (32.0-36.0) 31.7 % (32.0-36.0) 31.1 % (32.0-36.0) Red Cell Distribution Width 22.0 % (11.6-17.2) 22.4 % (11.6-17.2) 22.2 % (11.6-17.2) Platelet Count 344 TH/MM3 (150-450) 322 TH/MM3 (150-450) 321 TH/MM3 (150-450) Mean Platelet Volume 9.9 FL (7.0-11.0) 9.9 FL (7.0-11.0) 9.9 FL (7.0-11.0) Blood Urea Nitrogen 34 MG/DL (7-18) 29 MG/DL (7-18) 25 MG/DL (7-18) Creatinine 1.48 MG/DL (0.60-1.30) 1.48 MG/DL (0.60-1.30) 1.54 MG/DL (0.60-1.30) Random Glucose 159 MG/DL (74-106) 216 MG/DL (74-106) 251 MG/DL (74-106) Calcium Level 8.7 MG/DL (8.5-10.1) 8.7 MG/DL (8.5-10.1) 8.2 MG/DL (8.5-10.1) Sodium Level 149 MEQ/L (136-145) 148 MEQ/L (136-145) 141 MEQ/L (136-145) Potassium Level 4.1 MEQ/L (3.5-5.1) 3.9 MEQ/L (3.5-5.1) 3.9 MEQ/L (3.5-5.1) Chloride Level 113 MEQ/L (98-107) 111 MEQ/L (98-107) 115 MEQ/L (98-107) Carbon Dioxide Level 28.1 MEQ/L (21.0-32.0) 27.0 MEQ/L (21.0-32.0) 17.6 MEQ/L (21.0-32.0) Anion Gap 8 MEQ/L (5-15) 10 MEQ/L (5-15) 8 MEQ/L (5-15) Estimat Glomerular Filtration Rate 47 ML/MIN (>89) 47 ML/MIN (>89) 45 ML/MIN (>89) Digoxin Level 1.1 NG/ML (0.8-2.0) Hematology Comments Result Diagram: 01/23/18 0421 01/23/18 0421 Microbiology Microbiology Date/Time Source Procedure Growth Status 01/20/18 09:55 Wound Buttock Gram Stain - Final Complete 01/20/18 09:55 Wound Culture - Final Henrietta Albicans Complete Procedures 01/02 Extubated postprocedure 01/06 decompressive colonoscopy 01/07 reintubated during PEA arrest 01/12/18 extubated . Assessment and Plan Disease Oriented Problem List: (1) Acute on chronic systolic CHF (congestive heart failure) (2) CKD (chronic kidney disease) stage 3, GFR 30-59 ml/min (3) PAF (paroxysmal atrial fibrillation) (4) Hypothyroidism (5) Elevated troponin (6) Diabetes (7) Acute kidney injury superimposed on chronic kidney disease (8) Hypertension (9) Hyperlipidemia (10) Ileus Symptom Scale: (1) Dysphagia 0-10 Scale: Unable to quantify (2) Dyspnea 0-10 Scale: Unable to quantify (3) Encephalopathy 0-10 Scale: Unable to quantify (4) Agitation 0-10 Scale: Unable to quantify Pertinent Non-Medical Issues Psychosocial:Patient originally from [place], moved to [place] for senior care. Live-in caregiver has assisted him for about the past 5 years. She indicates he just before she started caring for him. She is not aware of any other family except for a cousin [facility]. ex 's name is Olivia Otto. Retired, caregiver not certain what type of work he did prior to senior care. Spiritual: Religion kianna, will probably want double needle stitcher visits Legal:Patient is not currently able to make his own decisions due to confusion, medical conditions. Patient's hired caregiver, Corinnatonia Powell, stated she would be willing to act in the role of healthcare proxy s/p accurints report that did not identify any family members who were willing to act in the role of health care proxy decision maker. Ethical issues impacting care: No ethical issues identified at this time. . Important Contacts Corinnatonia Powell [phone] / [phone] . Prognosis This patient has had multiple recent hospitalizations for cardiac conditions with some respiratory complications. He has been intubated twice this admission. He also suffered an ileus. Due to advanced age and multiple chronic medical conditions he does remain at risk for ongoing complications and potential setbacks. He may require rehabilitation following this acute hospitalization. . Code Status: Full Code (By default) Plan * FULL CODE by default * Patient's hired caregiver, Corinna Powell, stated she would be willing to act in the role of healthcare proxy s/p accurints report that did not identify any family members who were willing to act in the role of health care proxy decision maker. * 01/22/18: Palliative care spoke to Corinna via telephone. An update was provided on the patient's clinical condition. Medical treatment goals were reviewed as well as the process of cardiopulmonary resuscitation. If goals are to remain aggressive, patient will require PEG tube placement. However, the patient will likely pull it out. We discussed that given the patient's ongoing encephalopathy , it is unlikely that he will actively participate in rehab. Hospice was introduced. She is appropriately tearful stating "I thought he would go to rehab for a few weeks and then come home again." Corinna would like to consider the options overnight; She requests that the patient remain a FULL CODE until further conversations with palliative care. * Palliative care had tentative plans to meet with the patient's healthcare proxy this morning at 10 AM but she was a no-show. Message left on her voicemail x 2; requested nurse contact palliative care when/if HCP arrives. Veronika Cedeno, Palliative Care SHAREPOINT ADMINISTRATOR, was able to speak to the HCP briefly via telephone and explained that she was uncomfortable making difficult medical treatment decisions for the patient she could opt out, but the Dawm/HCP stated she wanted to fulfil this role. She asked if she could speak with Palliative RESERVOIR ENGINEERING ADVISOR at 2pm but did not answer her phone when called. * Discussed current medical treatment goals with RN (Denita). * SYMPTOMS: --Dyspnea: Patient reported with chronic dyspnea and orthopnea. He has had episodes of heart failure and atrial fibrillation contributing to this. Status post medical extubation 2 this admission. Concern for aspiration. Patient denies dyspnea. On Ceftin and PRN nebulizer treatments --Dysphagia: Oral intake has been inadequate; refusing medication. Patient has pulled out NGT. Dietary was consulted for calorie count. I suspect the patient will require a PEG tube but he will likely pull it out. Speech therapy is following and has made recommendations for a pured diet with honey consistency thickened liquids. ST agrees the patient may benefit from bypass feedings long-term secondary to cognitive deficits. --Encephalopathy: Status post PEA arrest 4 with ROSC after about 10 minutes. Reported he was cognitively sharp prior to admission per caregiver though prior H&P's do note at times poor historian. Caregiver reports he was paying his own bills prior to this admission. Concern for anoxic injury. --Agitation: Patient pulled put NGT as well as IV access, requiring nonviolent restraints overnight. Patient received Haldol 2 mg IM and was started on Seroquel 25 mg PO twice daily overnight. Continue to monitor --Pain: Patient having severe pain as evidenced by moaning and grimacing; patient is able to identify pain is secondary to wound on his buttocks. 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 Wound culture + Henrietta albicans. Pain is exacerbated by repositioning and care. Recommendations to position patient off buttocks as much and utilize PRN percocet prior to care. Palliative care will continue to follow during hospital course as condition evolves, to assist patient/decision-maker with understanding of medical conditions, weighing benefits/burdens of treatment options, for clarification of goals of treatment. Additionally will assist with any symptoms of palliative concern. . Attestation To help prompt me to consider important information that might be impacting today's encounter and assessment, information from prior notes written by myself or my colleagues may have been "brought forward" into today's note. My signature on this note, however, is an attestation that I personally performed the exam, history, and/or decision-making noted today, and, unless otherwise indicated, the interactions with patient, family, and staff as well as the review of records all occurred today. I also attest that the listed assessment and stated plan reflect my best clinical judgment today based on the combination of historical information, prior notes, and today's exam/ interactions. When time spent is documented, it refers only to time spent today by the signer, or if indicated, combined time spent today by collaborating physician/nurse practitioner. . Sadie Lyon Jan 23, 2018 9:47 am
--- NOTE | 2018-01-23 10:10 | HHI.PR ---
Subjective Remarks 72-year-old gentleman with multiple medical problems including morbid obesity, obstructive sleep apnea, diabetes mellitus, and chronic kidney insufficiency, underwent cardiac ablation for uncontrolled A. fib. Patient was intubated for procedure, and is transferred to ICU postprocedure for weaning of the mechanical ventilation due to increased abdominal girth. status post Colonoscopy for Decompression, status post PEA arrest, was on vasopressors, 01/23: stable in his bedroom, his Caregiver will come today to discuss with legal billing specialist if she wants Hospice versus PEG tube placement discussed with nurse. Objective Vital Signs Date Time Temp Pulse Resp B/P (MAP) Pulse Ox O2 Delivery O2 Flow Rate FiO2 01/23/18 08:00 Room Air 01/23/18 08:00 107 01/23/18 07:40 99.5 113 20 146/68 (94) 98 01/23/18 04:00 118 01/23/18 04:00 98.0 79 18 122/63 (82) 97 01/23/18 00:05 115 01/23/18 00:00 98.5 75 18 149/70 (96) 95 01/22/18 20:50 117 01/22/18 20:00 97.4 98 17 117/75 (89) 97 01/22/18 20:00 Room Air 01/22/18 17:30 98 21 01/22/18 16:05 97.2 131 20 124/78 (93) 98 01/22/18 16:00 132 01/22/18 12:15 98.0 132 18 121/75 (90) 96 01/22/18 10:16 119 01/22/18 10:16 2.00 I/O 01/22/18 01/22/18 01/22/18 01/23/18 01/23/18 01/23/18 07:00 15:00 23:00 07:00 15:00 23:00 Intake Total 1698 ml 30 ml 1120 ml Output Total 250 ml Balance 1698 ml -220 ml 1120 ml Intake Oral 90 ml 30 ml 120 ml IV Total 1608 ml 1000 ml Output Urine Total 250 ml # Voids 2 2 3 # Bowel Movements 1 2 3 Result Diagram: 01/23/18 0421 01/23/18 0421 Imaging Last Impressions Chest X-Ray 01/14/18 0000 Signed Impressions: Service Date/Time: Sunday, January 14, 2018 07:34 - CONCLUSION: Increasing interstitial edema otherwise stable. Tee Jimenes MD FACR Abdomen X-Ray 01/07/18 0600 Signed Impressions: Service Date/Time: Sunday, January 07, 2018 04:29 - CONCLUSION: Possible slight interval improvement in gaseous distention of bowel Lito Adkins MD Abdomen/Pelvis CT 01/04/18 0000 Signed Impressions: Service Date/Time: Thursday, January 04, 2018 10:34 - CONCLUSION: 1. Abnormal bowel gas pattern most characteristic of an ileus. There is a small amount of ascitic fluid in right paracolic gutter and pelvis. 2. Bilateral pleural effusions right greater than left with consolidation in both posterior lung bases. 3. Nasogastric tube in place with the tip in the proximal duodenum. 4. Mild diverticulosis. John Neville MD Renal Ultrasound 01/01/18 0000 Signed Impressions: Service Date/Time: December 18:16 - CONCLUSION: 1. No evidence of hydronephrosis. 2. No new or significant changes compared to the prior exam 3. 2.2 cm right renal cyst. Luiz Frey MD Procedures Endotracheal intubation and extubation Colonoscopy. Cardiac cath. Other Results Laboratory Tests Test 12/28/17 05:15 12/28/17 23:38 12/29/17 07:28 12/30/17 12:15 Total Creatine Kinase 107 U/L Creatine Kinase MB 2.8 NG/ML B-Type Natriuretic Peptide 1350 PG/ML Troponin I 0.07 NG/ML Thyroid Stimulating Hormone 3rd Gen 3.060 uIU/ML Nasal Screen MRSA (PCR) MRSA NOT DETECTED Test 01/01/18 04:10 01/01/18 11:10 01/04/18 04:14 01/09/18 17:50 Prothrombin Time 13.4 SEC Prothromb Time International Ratio 1.3 RATIO Activated Partial Thromboplast Time 28.4 SEC Urine Eosinophils RARE /HPF Urine Random Creatinine 164.1 MG/DL Urine Random Sodium 12 MEQ/L Amylase Level 13 U/L Lipase 35 U/L Protein Corrected Calcium 7.7 MG/DL Test 01/12/18 11:12 01/13/18 03:50 01/14/18 16:15 01/16/18 04:00 Blood Gas Ventilator Setting CPAP7/5 Blood Gas Inspired Oxygen 35 % Phosphorus Level 2.3 MG/DL Blood Gas Puncture Site LT RADIAL Blood Gas Patient Temperature 98.6 Blood Gas HCO3 26 mmol/L Blood Gas Base Excess 3.1 mmol/L Blood Gas Oxygen Saturation 94 % Arterial Blood pH 7.50 Arterial Blood Partial Pressure CO2 34 mmHg Arterial Blood Partial Pressure O2 73 mmHG Arterial Blood Oxygen Content 18.1 Vol % Arterial Blood Carboxyhemoglobin 1.3 % Arterial Blood Methemoglobin 0.6 % Blood Gas Hemoglobin 13.7 G/DL Oxygen Delivery Device NASAL CANNULA Blood Gas Liter Flow 2 L/M Neutrophils (%) (Auto) 79.3 % Lymphocytes (%) (Auto) 12.1 % Monocytes (%) (Auto) 5.5 % Eosinophils (%) (Auto) 2.4 % Basophils (%) (Auto) 0.7 % Neutrophils # (Auto) 6.3 TH/MM3 Lymphocytes # (Auto) 1.0 TH/MM3 Monocytes # (Auto) 0.4 TH/MM3 Eosinophils # (Auto) 0.2 TH/MM3 Basophils # (Auto) 0.1 TH/MM3 CBC Comment DIFF FINAL Differential Comment Blood Urea Nitrogen 43 MG/DL Creatinine 1.90 MG/DL Random Glucose 278 MG/DL Total Protein 6.1 GM/DL Albumin 2.1 GM/DL Calcium Level 8.4 MG/DL Magnesium Level 1.9 MG/DL Alkaline Phosphatase 119 U/L Aspartate Amino Transf (AST/SGOT) 93 U/L Alanine Aminotransferase (ALT/SGPT) 104 U/L Total Bilirubin 0.6 MG/DL Sodium Level 149 MEQ/L Potassium Level 3.6 MEQ/L Chloride Level 111 MEQ/L Carbon Dioxide Level 32.7 MEQ/L Test 01/21/18 06:30 01/23/18 04:21 Digoxin Level 1.1 NG/ML White Blood Count 9.2 TH/MM3 Red Blood Count 4.76 MIL/MM3 Hemoglobin 12.3 GM/DL Hematocrit 39.7 % Mean Corpuscular Volume 83.3 FL Mean Corpuscular Hemoglobin 25.9 PG Mean Corpuscular Hemoglobin Concent 31.1 % Red Cell Distribution Width 22.2 % Platelet Count 321 TH/MM3 Mean Platelet Volume 9.9 FL Hematology Comments Blood Urea Nitrogen 25 MG/DL Creatinine 1.54 MG/DL Random Glucose 251 MG/DL Calcium Level 8.2 MG/DL Sodium Level 141 MEQ/L Potassium Level 3.9 MEQ/L Chloride Level 115 MEQ/L Carbon Dioxide Level 17.6 MEQ/L Anion Gap 8 MEQ/L Estimat Glomerular Filtration Rate 45 ML/MIN Objective Remarks GENERAL: Morbidly obese male in no acute distress. CARDIOVASCULAR: Normal rate and regular rhythm without murmurs, gallops, or rubs. RESPIRATORY: Upper lung hernández are clear to auscultation. GASTROINTESTINAL: Abdomen morbidly obese. Nontender. No guarding NEUROLOGICAL: Awake, alert to self only. Very confused. Medications and IVs Current Medications Medications (Trade) Dose Ordered Sig/Az Route Start Time Stop Time Status Last Admin (D50w (Vial) Inj) 50 ml UNSCH PRN IV PUSH 12/28/17 07:00 01/04/18 06:48 (Glucagon Inj) 1 mg UNSCH PRN OTHER 12/28/17 07:00 (NS Flush) 2 ml UNSCH PRN IV FLUSH 12/28/17 07:00 01/07/18 05:32 (NS Flush) 2 ml BID IV FLUSH 12/28/17 09:00 01/23/18 08:23 (Tylenol) 650 mg Q6H PRN PO 12/28/17 07:00 (Delaney-Colace) 1 tab BID PO 12/28/17 09:00 01/21/18 08:25 (Senokot) 17.2 mg Q12H PRN PO 12/28/17 07:00 (Dulcolax Supp) 10 mg DAILY PRN RECTAL 12/28/17 07:00 (Cordarone) 200 mg DAILY PO 12/28/17 09:00 01/23/18 08:21 (Lipitor) 40 mg HS PO 12/28/17 21:00 01/20/18 21:08 (Cardura) 4 mg HS PO 12/28/17 21:00 01/20/18 21:09 (Synthroid) 125 mcg DAILY@0600 PO 12/28/17 07:00 01/20/18 05:50 (Zoloft) 50 mg BID PO 12/28/17 09:00 01/21/18 08:25 (Mirapex) 0.5 mg HS PO 12/28/17 21:00 01/20/18 21:08 (Percocet 5-325 Mg) 1 tab Q4H PRN PO 12/31/17 19:30 01/14/18 09:14 (Percocet 5-325 Mg) 2 tab Q4H PRN PO 12/31/17 19:30 01/21/18 01:59 (Atropine Inj) 0.5 mg UNSCH PRN IV PUSH 12/31/17 19:30 (Zofran Inj) 4 mg Q4H PRN IV PUSH 12/31/17 19:30 01/06/18 22:58 (Zyloprim) 100 mg DAILY PO 01/02/18 09:00 01/21/18 08:25 (Urecholine) 25 mg DAILY PO 01/02/18 09:00 01/21/18 08:25 Patient Own Medication PT OWN MED: NIACINAM... DAILY PO 01/02/18 09:00 Future Hold (Chloraseptic [place]) 2 spray Q2H PRN OROPHARYNG 01/01/18 12:00 (Miralax) 17 gm BID PO 01/02/18 09:00 01/21/18 08:26 (Lactulose Liq) 30 ml QID PO 01/02/18 09:00 01/21/18 17:01 (Reglan Inj) 5 mg Q8HR IV PUSH 01/02/18 14:00 01/23/18 05:49 (Erythromycin Ec) 250 mg Q8HR PO 01/05/18 16:00 01/21/18 13:02 (Eliquis) 2.5 mg BID PO 01/07/18 09:00 01/22/18 21:00 (Levemir Inj) 4 units BID SQ 01/06/18 21:00 01/23/18 08:23 (NovoLOG SUPPLEMENTAL SCALE) 1 ACHS SQ 01/06/18 21:00 01/23/18 08:23 (Peridex 0.12% Liq) 15 ml BID@08,20 MT 01/07/18 08:00 01/21/18 20:15 Propofol 100 ml @ 3.261 mls/ hr TITRATE PRN IV 01/07/18 00:15 01/11/18 23:50 (Effer-K Eff) 25 meq BID NG 01/08/18 21:00 01/21/18 08:25 (Duoneb Neb) 1 ampule Q2HR NEB PRN NEB 01/14/18 16:00 01/18/18 16:36 Esmolol HCl/ Sodium Chloride 250 ml @ 28.41 mls/ hr TITRATE PRN IV 01/14/18 17:30 (Lanoxin Liq) 0.125 mg DAILY PO 01/15/18 16:00 01/21/18 08:25 (Prevacid Odt) 30 mg DAILY NG 01/16/18 09:00 01/21/18 08:25 (Ceftin) 500 mg Q12HR PO 01/18/18 09:00 01/21/18 08:25 (Lasix) 40 mg DAILY NG 01/19/18 09:00 Future Hold 01/21/18 08:25 (Free Water) 200 ml Q6HR G-TUBE 01/18/18 18:00 01/23/18 05:49 (Dakin'S 0.125% Soln) 500 ml DAILY TOPICAL 01/20/18 09:00 01/23/18 08:25 (Santyl Oint) 1 applic DAILY TOPICAL 01/20/18 09:00 01/23/18 08:25 (Xylocaine 5% Oint) 1 applic Q8H PRN TOPICAL 01/19/18 15:15 (Cardizem) 60 mg Q6H PO 01/21/18 21:00 01/23/18 08:21 Dextrose/Sodium Chloride 1,000 ml @ 100 mls/hr Q10H IV 01/21/18 15:15 01/23/18 06:19 (SEROquel) 25 mg BID PO 01/22/18 21:00 01/23/18 08:21 A/P Assessment and Plan (1) Acute on chronic systolic CHF (congestive heart failure) ICD Code: I50.23 - Acute on chronic systolic (congestive) heart failure (2) PAF (paroxysmal atrial fibrillation) ICD Code: I48.0 - Paroxysmal atrial fibrillation (3) Acute kidney injury superimposed on chronic kidney disease ICD Code: N17.9 - Acute kidney failure, unspecified; N18.9 - Chronic kidney disease, unspecified (4) Hypothyroidism ICD Code: E03.9 - Hypothyroidism Status: Acute (5) Diabetes ICD Code: E11.9 - Diabetes Status: Chronic (6) Hyperkalemia ICD Code: E87.5 - Hyperkalemia Status: Acute This is a pleasant 72 y/o male with Atrial Fibrillation with RVR, underwent Cardiac Ablation, developed respiratory failure and was postoperatively intubated, was in Intensive care unit, Status post PEA arrest. Concern for aspiration event. Patient was extubated. Prolonged ICU course. He has been downgraded to the floor. Patient with profound encephalopathy, confused, ? anoxic injury. Not cooperating with treatment. not eating or drinking enough, may need PEG tube placement, palliative care will get a meeting with caregiver today. Acute hypoxic and hypercarbic respiratory failure MUNA -nocturnal CPAP 8 cm H2O Moderate right pleural effusion Extubated 01/02. reintubated 01/07 during PEA arrest, extubated again 01/12/18 wean fio2 for goal spo2 > 90% Nebs as needed EzPAP, Acapella Chronic diastolic heart failure, with exacerbation ejection fraction 45-50% recurrent atrial fibrillation with rapid ventricular response s/p PEA arrest 01/07 Status post ablation for A. fib/flutter Hypertension Dyslipidemia Continue amiodarone 200 mg by mouth daily Received IV digoxin and IV metoprolol 01/14 digoxin 0.125 mg p.o. daily Increase Cardizem 60 mg p.o. every 6 hours. Holding diltiazem 240 mg p.o. daily/ home medication Continue atorvastatin 40 mg p.o. daily for his lipidemia At home on fish oil/cholecalciferol 1200/1000 1 tablet twice daily/home medication Holding ramipril 5 mg p.o. daily for hypertension with acute kidney injury Dr. Ramirez evaluated no further plans at this time Hold lasix. He appear dry on exam Encephalopathy,? Anoxic injury: Depression/anxiety Chronic narcotic use continue sertraline 50 mg twice daily/home medication for depression Continue pramipexole 0.5 mg p.o. daily for extrapyramidal side effects Currently holding buspirone 5 mg 3 times daily anxiety On oxycodone/acetaminophen 5/325 1 - 2 tablets every 4 hours as needed pain PT/OT/speech He remains encephalopathic Gastroesophageal reflux disease Elevated transaminases Ileus Sigmoid diverticulosis Internal/external hemorrhoids Advance diet per speech therapy recommendations. Not tolerating enough p.o. nutrition yet. Continue NGT. If no improvement, will need to discuss with family regarding permanent tube feeding. Docusate sodium/senna 1 tablet twice daily for bowel regimen with polyethylene glycol 17 g twice daily and lactulose 30 cc 4 times daily Follow transaminases intermittently is likely congestion. Further workup and On metoclopramide 5 mg IV every 8 hours and erythromycin [address] abdomen/pelvis revealed dilated small and large bowel. Colonoscopy by Dr. Bella/revealed sigmoid diverticulosis. Decompression of colon. Internal and external hemorrhoids. BPH/overflow Continue doxazosin 4 mg daily and bethanechol 25 mg daily Diabetes mellitus Hypothyroidism Low testosterone Currently on insulin detemir 4 units twice daily with NovoLog sliding scale insulin/low regimen before meals at bedtime At home on insulin glargine 12 units twice daily with sliding scale insulin Continue levothyroxine 125 mcg p.o. daily. TSH 3.06 Holding testosterone Acute kidney injury likely secondary to cardiorenal syndrome Renal cyst right 2.2 cm Followed by nephrology. Monitor urine output Accurate I's and O's. stable Renal ultrasound with no hydronephrosis. Right renal cyst 2.2 cm. Rare eosinophils urine. Hyponatremia: - Need free water but not taking enough PO. Continue D5 with 1/4 NS. F/U BMP Chronic apixaban use Normocytic normochromic anemia Currently renally dose of 2.5 mg twice daily. Monitor CBC daily. Follow trends Probable pneumonia/E. coli in sputum Sensitivity profile noted. Switch to cefuroxime. Debility: - Secondary to comorbid conditions above. Patient will need SNF placement. Continue rehab efforts. Prophylaxis -GI -Lansoprazole -DVT -SCD/apixaban Discharge Planning Discussed with nurse awaiting for final decision after Meeting with multimedia educational specialist. Martin Hays MD Jan 23, 2018 10:10
[2018-01-23] MEDS: oxyCODONE/ACETAMINOPHEN 5 MG/325 MG TAB PO PRN ×3 (10:15→22:29)
--- NOTE | 2018-01-23 16:16 | HHI.NPPN ---
Subjective History of Present Illness 72 year old male with Chf/Atrial tachycardia/Afib admitted with Tachyarrhythmia Additional Remarks confused Objective Data Data Vital Signs Date Time Temp Pulse Resp B/P (MAP) Pulse Ox O2 Delivery O2 Flow Rate FiO2 01/23/18 12:00 114 01/23/18 11:55 98.2 111 20 137/67 (90) 97 01/23/18 08:00 Room Air 01/23/18 08:00 107 01/23/18 07:40 99.5 113 20 146/68 (94) 98 01/23/18 04:00 118 01/23/18 04:00 98.0 79 18 122/63 (82) 97 01/23/18 00:05 115 01/23/18 00:00 98.5 75 18 149/70 (96) 95 01/22/18 20:50 117 01/22/18 20:00 97.4 98 17 117/75 (89) 97 01/22/18 20:00 Room Air 01/22/18 17:30 98 21 -: 01/23/18 0421 01/23/18 0421 Physical Exam General Appearance: Well Developed, Well Nourished, No Acute Distress, Comfortable Neck Neck Exam: Neck Supple Pulmonary Resp Exam: No Distress, Crackles, Rhonchi, Decreased Bases, Diminished Breath Sounds Cardiology CV Exam: Arrhythmia Gastrointestinal/Abdomen GI Exam: Soft, Non-Tender, Bowel Sounds Present Extremeties Extremities Exam: Trace Edema Neurologic Neuro Exam: Alert Assessment/Plan Problem List: (1) Acute renal failure ICD Codes: N17.9 - Acute kidney failure, unspecified Status: Acute Plan: Patient had cardiogenic shock and low blood pressure contributing, and cardiorenal syndrome Plan is to cardiovert him once he is stable on Eliquis He has underlying tachyarrhythmia Atrial fibrillation/atrial tachycardia s/p cardiac Ablation Stable renal function. Hypernatremia is noted, likely due to loop diuretic. Lasix on PO. Needs water. Cr 1.5 Na 144 if dc can be followed in clinic remains confused (2) Chronic kidney disease, stage III (moderate) ICD Codes: N18.3 - Chronic kidney disease, stage III (moderate) Status: Acute Plan: Baseline care around 1.7 (3) Congestive heart failure ICD Codes: I50.9 - Heart failure, unspecified Status: Acute Plan: He is in cardiogenic shock low blood pressure causing the cardiorenal syndrome (4) PAF (paroxysmal atrial fibrillation) ICD Codes: I48.0 - Paroxysmal atrial fibrillation Plan: Cardiology was following (5) Diabetes ICD Codes: E11.9 - Diabetes Status: Chronic Plan: Monitor blood glucose (6) Acute on chronic systolic CHF (congestive heart failure) ICD Codes: I50.23 - Acute on chronic systolic (congestive) heart failure Problem Qualifiers (1) Acute renal failure: Qualified Codes: N17.8 - Other acute kidney failure (2) Congestive heart failure: Qualified Codes: I50.9 - Heart failure, unspecified Susan Solo MD Jan 23, 2018 16:16
[2018-01-23] MEDS: DOXAZOSIN MESYLATE 4 MG TAB PO SCH (22:30)
[2018-01-23] MEDS: PRAMIPEXOLE DIHYDROCHLORIDE 0.25 MG TAB PO SCH (22:30)
[2018-01-23] MEDS: ATORVASTATIN 40 MG TAB PO SCH (22:30)
[2018-01-24] VITALS: BP 104/59; PULSE 107; PULSE 97; RESP 18; TEMP 97.9; O2SAT 97
[2018-01-24] MEDS: DEXTROSE 5%-NACL 0.225% INJ 1,000 ML IV SCH ×4 (03:03→23:39)
[2018-01-24 04:00] VITALS: BP 108/65; PULSE 103; PULSE 105; RESP 18; TEMP 99; O2SAT 96
[2018-01-24] MEDS: ERYTHROMYCIN EC 250 MG TABEC PO SCH ×3 (04:57→22:00)
[2018-01-24] MEDS: LEVOTHYROXINE SODIUM 125 MCG TAB PO SCH (04:57)
[2018-01-24] MEDS: METOCLOPRAMIDE HCL 10 MG/2 ML VIAL IV PUSH SCH ×3 (04:57→21:59)
[2018-01-24] MEDS: DILTIAZEM HCL 30 MG TAB PO SCH ×4 (04:58→22:01)
[2018-01-24] MEDS: oxyCODONE/ACETAMINOPHEN 5 MG/325 MG TAB PO PRN (04:58)
[2018-01-24] MEDS: FREE WATER G-TUBE SCH ×3 (06:00→17:44)
[2018-01-24 08:00] VITALS: BP 108/68; PULSE 107; PULSE 114; RESP 20; TEMP 98.5; O2SAT 96
[2018-01-24] MEDS: CHLORHEXIDINE 0.12% (ORAL KIT) 15 ML CUP MT SCH ×2 (08:00→20:00)
[2018-01-24] MEDS: INSULIN ASPART SUPPLEMENTAL SCALE SQ SCH ×4 (08:00→21:55)
[2018-01-24] MEDS: LANSOPRAZOLE SOLUTAB 30 MG TAB NG SCH (09:00)
[2018-01-24] MEDS: CEFUROXIME AXETIL 500 MG TAB PO SCH ×2 (09:00→21:00)
[2018-01-24] MEDS: BETHANECHOL CHL 25 MG TAB PO SCH (09:00)
[2018-01-24] MEDS: DOCUSATE SODIUM 50 MG/SENNA 8.6 MG TAB PO SCH ×2 (09:00→21:00)
[2018-01-24] MEDS: QUEtiapine FUMARATE 25 MG TAB PO SCH ×2 (09:00→22:01)
[2018-01-24] MEDS: SODIUM CHLORIDE 0.9% FLUSH 10 ML FLUSH IV FLUSH SCH ×2 (09:00→21:00)
[2018-01-24] MEDS: AMIODARONE 200 MG TAB PO SCH (09:00)
[2018-01-24] MEDS: POTASSIUM BICARBONATE 25 MEQ EFFERVESCENT TAB NG SCH ×2 (09:00→21:00)
[2018-01-24] MEDS: POLYETHYLENE GLYCOL 17 GM PKG PO SCH ×2 (09:00→21:00)
[2018-01-24] MEDS: SERTRALINE HCL 50 MG TAB PO SCH ×2 (09:00→21:00)
[2018-01-24] MEDS: APIXABAN 2.5 MG TABLET PO SCH (09:00)
[2018-01-24] MEDS: LACTULOSE SYRUP 20 GM/30 ML CUP PO SCH ×4 (09:00→21:00)
[2018-01-24] MEDS: ALLOPURINOL 100 MG TAB PO SCH (09:00)
[2018-01-24] MEDS: INSULIN DETEMIR 100 UNITS/ML VIAL SQ SCH ×2 (10:13→21:54)
[2018-01-24] MEDS: DIGOXIN SOLUTION 0.125 MG/2.5 ML CUP PO SCH (10:15)
[2018-01-24 12:00] VITALS: BP 119/70; PULSE 106; PULSE 98; RESP 20; TEMP 99.3; O2SAT 94
[2018-01-24] MEDS: SODIUM HYPOCHLORITE 0.125% 500 ML BTL TOPICAL SCH (13:35)
[2018-01-24] MEDS: COLLAGENASE OINT 30 GM TUBE TOPICAL SCH (13:35)
--- NOTE | 2018-01-24 13:38 | HHI.NPPN ---
Subjective History of Present Illness 72 year old male with Chf/Atrial tachycardia/Afib admitted with Tachyarrhythmia Additional Remarks patient is restrained. Patient refusing to take any medications per nursing. IVF are infusing. (Lupe Goodman) Objective Data Data Vital Signs Date Time Temp Pulse Resp B/P (MAP) Pulse Ox O2 Delivery O2 Flow Rate FiO2 01/24/18 08:00 98.5 114 20 108/68 (81) 96 01/24/18 04:00 99.0 105 18 108/65 (79) 96 01/24/18 04:00 103 01/24/18 00:00 97.9 107 18 104/59 (74) 97 01/24/18 00:00 97 01/23/18 21:00 Room Air 01/23/18 20:00 98.4 107 19 121/64 (83) 98 01/23/18 20:00 105 01/23/18 16:05 98.0 102 20 142/71 (94) 96 01/23/18 16:00 106 (Lupe Goodman) -: 01/23/18 0421 01/23/18 0421 Physical Exam General Appearance: Well Developed, Well Nourished (Lupe Goodman) Neck Neck Exam: Neck Supple (Lupe Goodman) Pulmonary Resp Exam: No Distress, Crackles, Rhonchi, Decreased Bases, Diminished Breath Sounds (Lupe Goodman) Cardiology CV Exam: Arrhythmia (Lupe Goodman) Gastrointestinal/Abdomen GI Exam: Soft, Non-Tender, Bowel Sounds Present (Lupe Goodman) Extremeties Extremities Exam: Trace Edema (Lupe Goodman) Neurologic Neuro Exam: Alert Neuro Remarks restrained (Lupe Goodman) Assessment/Plan Problem List: (1) Acute renal failure ICD Codes: N17.9 - Acute kidney failure, unspecified Status: Acute Plan: Patient had cardiogenic shock and low blood pressure contributing, and cardiorenal syndrome He has underlying tachyarrhythmia Atrial fibrillation/atrial tachycardia s/p cardiac Ablation Stable renal function with a creatinine of 1.54 yesterday. Patient is refusing all medications and is restrained. IVF infusing. Monitor renal panel periodically. (2) Chronic kidney disease, stage III (moderate) ICD Codes: N18.3 - Chronic kidney disease, stage III (moderate) Status: Acute Plan: Baseline care around 1.7 (3) Congestive heart failure ICD Codes: I50.9 - Heart failure, unspecified Status: Acute Plan: He is in cardiogenic shock low blood pressure causing the cardiorenal syndrome (4) PAF (paroxysmal atrial fibrillation) ICD Codes: I48.0 - Paroxysmal atrial fibrillation Plan: Cardiology was following (5) Diabetes ICD Codes: E11.9 - Diabetes Status: Chronic Plan: Monitor blood glucose (6) Acute on chronic systolic CHF (congestive heart failure) ICD Codes: I50.23 - Acute on chronic systolic (congestive) heart failure ( Lupe Goodman) Problem List: (1) Acute renal failure ICD Codes: N17.9 - Acute kidney failure, unspecified Status: Acute Plan: Patient had cardiogenic shock and low blood pressure contributing, and cardiorenal syndrome He has underlying tachyarrhythmia Atrial fibrillation/atrial tachycardia s/p cardiac Ablation Stable renal function with a creatinine of 1.54 yesterday. Patient is refusing all medications and is restrained. IVF infusing. Monitor renal panel periodically. Patient seen and examined, agree with above. Creatinine is stable. (2) Chronic kidney disease, stage III (moderate) ICD Codes: N18.3 - Chronic kidney disease, stage III (moderate) Status: Acute Plan: Baseline care around 1.7 (3) Congestive heart failure ICD Codes: I50.9 - Heart failure, unspecified Status: Acute Plan: He is in cardiogenic shock low blood pressure causing the cardiorenal syndrome (4) PAF (paroxysmal atrial fibrillation) ICD Codes: I48.0 - Paroxysmal atrial fibrillation Plan: Cardiology was following (5) Diabetes ICD Codes: E11.9 - Diabetes Status: Chronic Plan: Monitor blood glucose (6) Acute on chronic systolic CHF (congestive heart failure) ICD Codes: I50.23 - Acute on chronic systolic (congestive) heart failure ( Eden Butler MD) Problem Qualifiers (1) Acute renal failure: Qualified Codes: N17.8 - Other acute kidney failure (2) Congestive heart failure: Qualified Codes: I50.9 - Heart failure, unspecified Lupe Goodman Jan 24, 2018 13:38 Eden Butler MD Jan 25, 2018 14:37
--- NOTE | 2018-01-24 15:16 | HHI.PR ---
Subjective Remarks 72-year-old gentleman with multiple medical problems including morbid obesity, obstructive sleep apnea, diabetes mellitus, and chronic kidney insufficiency, underwent cardiac ablation for uncontrolled A. fib. Patient was intubated for procedure, and is transferred to ICU postprocedure for weaning of the mechanical ventilation due to increased abdominal girth. status post Colonoscopy for Decompression, status post PEA arrest, was on vasopressors, 01/23: stable in his bedroom, his Caregiver will come today to discuss with desktop specialist if she wants Hospice versus PEG tube placement discussed with nurse. 01/24: discussed with his Caregiver Miss Corinna Powell and she wants to continue with PEG tube placement, she is been delayed due to that was not possible to come yesterday for Palliative care meeting was asked for GI and Interventional Radiology for PEG tube placement. patient continue encephalopathic. Objective Vital Signs Date Time Temp Pulse Resp B/P (MAP) Pulse Ox O2 Delivery O2 Flow Rate FiO2 01/24/18 08:00 Room Air 01/24/18 08:00 98.5 114 20 108/68 (81) 96 01/24/18 04:00 99.0 105 18 108/65 (79) 96 01/24/18 04:00 103 01/24/18 00:00 97.9 107 18 104/59 (74) 97 01/24/18 00:00 97 01/23/18 21:00 Room Air 01/23/18 20:00 98.4 107 19 121/64 (83) 98 01/23/18 20:00 105 01/23/18 16:05 98.0 102 20 142/71 (94) 96 01/23/18 16:00 106 I/O 01/23/18 01/23/18 01/23/18 01/24/18 01/24/18 01/24/18 07:00 15:00 23:00 07:00 15:00 23:00 Intake Total 1120 ml 25 ml 1000 ml Balance 1120 ml 25 ml 1000 ml Intake Oral 120 ml 25 ml 0 ml IV Total 1000 ml 1000 ml # Voids 3 3 3 # Bowel Movements 3 2 Result Diagram: 01/23/18 0421 01/23/18 0421 Imaging Last Impressions Chest X-Ray 01/14/18 0000 Signed Impressions: Service Date/Time: Sunday, January 14, 2018 07:34 - CONCLUSION: Increasing interstitial edema otherwise stable. Tee Jimenes MD FACR Abdomen X-Ray 01/07/18 0600 Signed Impressions: Service Date/Time: Sunday, January 07, 2018 04:29 - CONCLUSION: Possible slight interval improvement in gaseous distention of bowel Lito Adikns MD Abdomen/Pelvis CT 01/04/18 0000 Signed Impressions: Service Date/Time: Thursday, January 04, 2018 10:34 - CONCLUSION: 1. Abnormal bowel gas pattern most characteristic of an ileus. There is a small amount of ascitic fluid in right paracolic gutter and pelvis. 2. Bilateral pleural effusions right greater than left with consolidation in both posterior lung bases. 3. Nasogastric tube in place with the tip in the proximal duodenum. 4. Mild diverticulosis. John Neville MD Renal Ultrasound 01/01/18 0000 Signed Impressions: Service Date/Time: December 18:16 - CONCLUSION: 1. No evidence of hydronephrosis. 2. No new or significant changes compared to the prior exam 3. 2.2 cm right renal cyst. Luiz Frey MD Procedures Endotracheal intubation and extubation Colonoscopy. Cardiac cath. Other Results Laboratory Tests Test 12/28/17 05:15 12/28/17 23:38 12/29/17 07:28 12/30/17 12:15 Total Creatine Kinase 107 U/L Creatine Kinase MB 2.8 NG/ML B-Type Natriuretic Peptide 1350 PG/ML Troponin I 0.07 NG/ML Thyroid Stimulating Hormone 3rd Gen 3.060 uIU/ML Nasal Screen MRSA (PCR) MRSA NOT DETECTED Test 01/01/18 04:10 01/01/18 11:10 01/04/18 04:14 01/09/18 17:50 Prothrombin Time 13.4 SEC Prothromb Time International Ratio 1.3 RATIO Activated Partial Thromboplast Time 28.4 SEC Urine Eosinophils RARE /HPF Urine Random Creatinine 164.1 MG/DL Urine Random Sodium 12 MEQ/L Amylase Level 13 U/L Lipase 35 U/L Protein Corrected Calcium 7.7 MG/DL Test 01/12/18 11:12 01/13/18 03:50 01/14/18 16:15 01/16/18 04:00 Blood Gas Ventilator Setting CPAP7/5 Blood Gas Inspired Oxygen 35 % Phosphorus Level 2.3 MG/DL Blood Gas Puncture Site LT RADIAL Blood Gas Patient Temperature 98.6 Blood Gas HCO3 26 mmol/L Blood Gas Base Excess 3.1 mmol/L Blood Gas Oxygen Saturation 94 % Arterial Blood pH 7.50 Arterial Blood Partial Pressure CO2 34 mmHg Arterial Blood Partial Pressure O2 73 mmHG Arterial Blood Oxygen Content 18.1 Vol % Arterial Blood Carboxyhemoglobin 1.3 % Arterial Blood Methemoglobin 0.6 % Blood Gas Hemoglobin 13.7 G/DL Oxygen Delivery Device NASAL CANNULA Blood Gas Liter Flow 2 L/M Neutrophils (%) (Auto) 79.3 % Lymphocytes (%) (Auto) 12.1 % Monocytes (%) (Auto) 5.5 % Eosinophils (%) (Auto) 2.4 % Basophils (%) (Auto) 0.7 % Neutrophils # (Auto) 6.3 TH/MM3 Lymphocytes # (Auto) 1.0 TH/MM3 Monocytes # (Auto) 0.4 TH/MM3 Eosinophils # (Auto) 0.2 TH/MM3 Basophils # (Auto) 0.1 TH/MM3 CBC Comment DIFF FINAL Differential Comment Blood Urea Nitrogen 43 MG/DL Creatinine 1.90 MG/DL Random Glucose 278 MG/DL Total Protein 6.1 GM/DL Albumin 2.1 GM/DL Calcium Level 8.4 MG/DL Magnesium Level 1.9 MG/DL Alkaline Phosphatase 119 U/L Aspartate Amino Transf (AST/SGOT) 93 U/L Alanine Aminotransferase (ALT/SGPT) 104 U/L Total Bilirubin 0.6 MG/DL Sodium Level 149 MEQ/L Potassium Level 3.6 MEQ/L Chloride Level 111 MEQ/L Carbon Dioxide Level 32.7 MEQ/L Test 01/21/18 06:30 01/23/18 04:21 Digoxin Level 1.1 NG/ML White Blood Count 9.2 TH/MM3 Red Blood Count 4.76 MIL/MM3 Hemoglobin 12.3 GM/DL Hematocrit 39.7 % Mean Corpuscular Volume 83.3 FL Mean Corpuscular Hemoglobin 25.9 PG Mean Corpuscular Hemoglobin Concent 31.1 % Red Cell Distribution Width 22.2 % Platelet Count 321 TH/MM3 Mean Platelet Volume 9.9 FL Hematology Comments Blood Urea Nitrogen 25 MG/DL Creatinine 1.54 MG/DL Random Glucose 251 MG/DL Calcium Level 8.2 MG/DL Sodium Level 141 MEQ/L Potassium Level 3.9 MEQ/L Chloride Level 115 MEQ/L Carbon Dioxide Level 17.6 MEQ/L Anion Gap 8 MEQ/L Estimat Glomerular Filtration Rate 45 ML/MIN Objective Remarks GENERAL: Morbidly obese male in no acute distress. CARDIOVASCULAR: Normal rate and regular rhythm without murmurs, gallops, or rubs. RESPIRATORY: Upper lung hernández are clear to auscultation. GASTROINTESTINAL: Abdomen morbidly obese. Nontender. No guarding NEUROLOGICAL: Awake, alert to self only. Very confused. Medications and IVs Current Medications Medications (Trade) Dose Ordered Sig/Az Route Start Time Stop Time Status Last Admin (D50w (Vial) Inj) 50 ml UNSCH PRN IV PUSH 12/28/17 07:00 01/04/18 06:48 (Glucagon Inj) 1 mg UNSCH PRN OTHER 12/28/17 07:00 (NS Flush) 2 ml UNSCH PRN IV FLUSH 12/28/17 07:00 01/07/18 05:32 (NS Flush) 2 ml BID IV FLUSH 12/28/17 09:00 01/23/18 08:23 (Tylenol) 650 mg Q6H PRN PO 12/28/17 07:00 (Delaney-Colace) 1 tab BID PO 12/28/17 09:00 01/21/18 08:25 (Senokot) 17.2 mg Q12H PRN PO 12/28/17 07:00 (Dulcolax Supp) 10 mg DAILY PRN RECTAL 12/28/17 07:00 (Cordarone) 200 mg DAILY PO 12/28/17 09:00 01/23/18 08:21 (Lipitor) 40 mg HS PO 12/28/17 21:00 01/23/18 22:30 (Cardura) 4 mg HS PO 12/28/17 21:00 01/23/18 22:30 (Synthroid) 125 mcg DAILY@0600 PO 12/28/17 07:00 01/24/18 04:57 (Zoloft) 50 mg BID PO 12/28/17 09:00 01/23/18 22:29 (Mirapex) 0.5 mg HS PO 12/28/17 21:00 01/23/18 22:30 (Percocet 5-325 Mg) 1 tab Q4H PRN PO 12/31/17 19:30 01/14/18 09:14 (Percocet 5-325 Mg) 2 tab Q4H PRN PO 12/31/17 19:30 01/24/18 04:58 (Atropine Inj) 0.5 mg UNSCH PRN IV PUSH 12/31/17 19:30 (Zofran Inj) 4 mg Q4H PRN IV PUSH 12/31/17 19:30 01/06/18 22:58 (Zyloprim) 100 mg DAILY PO 01/02/18 09:00 01/21/18 08:25 (Urecholine) 25 mg DAILY PO 01/02/18 09:00 01/21/18 08:25 Patient Own Medication PT OWN MED: NIACINAM... DAILY PO 01/02/18 09:00 Future Hold (Chloraseptic [place]) 2 spray Q2H PRN OROPHARYNG 01/01/18 12:00 (Miralax) 17 gm BID PO 01/02/18 09:00 01/21/18 08:26 (Lactulose Liq) 30 ml QID PO 01/02/18 09:00 01/21/18 17:01 (Reglan Inj) 5 mg Q8HR IV PUSH 01/02/18 14:00 01/24/18 14:27 (Erythromycin Ec) 250 mg Q8HR PO 01/05/18 16:00 01/24/18 04:57 (Eliquis) 2.5 mg BID PO 01/07/18 09:00 01/23/18 22:30 (Levemir Inj) 4 units BID SQ 01/06/18 21:00 01/24/18 10:13 (NovoLOG SUPPLEMENTAL SCALE) 1 ACHS SQ 01/06/18 21:00 01/23/18 22:28 (Peridex 0.12% Liq) 15 ml BID@08,20 MT 01/07/18 08:00 01/21/18 20:15 Propofol 100 ml @ 3.261 mls/ hr TITRATE PRN IV 01/07/18 00:15 01/11/18 23:50 (Effer-K Eff) 25 meq BID NG 01/08/18 21:00 01/21/18 08:25 (Duoneb Neb) 1 ampule Q2HR NEB PRN NEB 01/14/18 16:00 01/18/18 16:36 Esmolol HCl/ Sodium Chloride 250 ml @ 28.41 mls/ hr TITRATE PRN IV 01/14/18 17:30 (Lanoxin Liq) 0.125 mg DAILY PO 01/15/18 16:00 01/24/18 10:15 (Prevacid Odt) 30 mg DAILY NG 01/16/18 09:00 01/21/18 08:25 (Ceftin) 500 mg Q12HR PO 01/18/18 09:00 01/23/18 22:29 (Lasix) 40 mg DAILY NG 01/19/18 09:00 Future Hold 01/21/18 08:25 (Free Water) 200 ml Q6HR G-TUBE 01/18/18 18:00 01/23/18 05:49 (Dakin'S 0.125% Soln) 500 ml DAILY TOPICAL 01/20/18 09:00 01/24/18 13:35 (Santyl Oint) 1 applic DAILY TOPICAL 01/20/18 09:00 01/24/18 13:35 (Xylocaine 5% Oint) 1 applic Q8H PRN TOPICAL 01/19/18 15:15 (Cardizem) 60 mg Q6H PO 01/21/18 21:00 01/24/18 04:58 Dextrose/Sodium Chloride 1,000 ml @ 100 mls/hr Q10H IV 01/21/18 15:15 01/24/18 13:36 (SEROquel) 25 mg BID PO 01/22/18 21:00 01/23/18 22:30 A/P Assessment and Plan (1) Acute on chronic systolic CHF (congestive heart failure) ICD Code: I50.23 - Acute on chronic systolic (congestive) heart failure (2) PAF (paroxysmal atrial fibrillation) ICD Code: I48.0 - Paroxysmal atrial fibrillation (3) Acute kidney injury superimposed on chronic kidney disease ICD Code: N17.9 - Acute kidney failure, unspecified; N18.9 - Chronic kidney disease, unspecified (4) Hypothyroidism ICD Code: E03.9 - Hypothyroidism Status: Acute (5) Diabetes ICD Code: E11.9 - Diabetes Status: Chronic (6) Hyperkalemia ICD Code: E87.5 - Hyperkalemia Status: Acute This is a pleasant 72 y/o male with Atrial Fibrillation with RVR, underwent Cardiac Ablation, developed respiratory failure and was postoperatively intubated, was in Intensive care unit, Status post PEA arrest. Concern for aspiration event. Patient was extubated. Prolonged ICU course. He has been downgraded to the floor. Patient with profound encephalopathy, confused, ? anoxic injury. Not cooperating with treatment. not eating or drinking enough, may need PEG tube placement, palliative care will get a meeting with caregiver today. Acute hypoxic and hypercarbic respiratory failure MUNA -nocturnal CPAP 8 cm H2O Moderate right pleural effusion Extubated 01/02. reintubated 01/07 during PEA arrest, extubated again 01/12/18 wean fio2 for goal spo2 > 90% Nebs as needed EzPAP, Acapella Chronic diastolic heart failure, with exacerbation ejection fraction 45-50% recurrent atrial fibrillation with rapid ventricular response s/p PEA arrest 01/07 Status post ablation for A. fib/flutter Hypertension Dyslipidemia Continue amiodarone 200 mg by mouth daily Received IV digoxin and IV metoprolol 01/14 digoxin 0.125 mg p.o. daily Increase Cardizem 60 mg p.o. every 6 hours. Holding diltiazem 240 mg p.o. daily/ home medication Continue atorvastatin 40 mg p.o. daily for his lipidemia At home on fish oil/cholecalciferol 1200/1000 1 tablet twice daily/home medication Holding ramipril 5 mg p.o. daily for hypertension with acute kidney injury Dr. Ramirez evaluated no further plans at this time Hold lasix. He appear dry on exam Encephalopathy,? Anoxic injury: Depression/anxiety Chronic narcotic use continue sertraline 50 mg twice daily/home medication for depression Continue pramipexole 0.5 mg p.o. daily for extrapyramidal side effects Currently holding buspirone 5 mg 3 times daily anxiety On oxycodone/acetaminophen 5/325 1 - 2 tablets every 4 hours as needed pain PT/OT/speech He remains encephalopathic Gastroesophageal reflux disease Elevated transaminases Ileus Sigmoid diverticulosis Internal/external hemorrhoids Advance diet per speech therapy recommendations. Not tolerating enough p.o. nutrition yet. Continue NGT. If no improvement, will need to discuss with family regarding permanent tube feeding. Docusate sodium/senna 1 tablet twice daily for bowel regimen with polyethylene glycol 17 g twice daily and lactulose 30 cc 4 times daily Follow transaminases intermittently is likely congestion. Further workup and On metoclopramide 5 mg IV every 8 hours and erythromycin [address] abdomen/pelvis revealed dilated small and large bowel. Colonoscopy by Dr. Bella/revealed sigmoid diverticulosis. Decompression of colon. Internal and external hemorrhoids. Asked again for GI specialist evaluation for probable PEG tube placement BPH/overflow Continue doxazosin 4 mg daily and bethanechol 25 mg daily Diabetes mellitus Hypothyroidism Low testosterone Currently on insulin detemir 4 units twice daily with NovoLog sliding scale insulin/low regimen before meals at bedtime At home on insulin glargine 12 units twice daily with sliding scale insulin Continue levothyroxine 125 mcg p.o. daily. TSH 3.06 Holding testosterone Even some uncontrolled blood sugar the patient is not eating will wait for PEG tube placement. Acute kidney injury likely secondary to cardiorenal syndrome Renal cyst right 2.2 cm Followed by nephrology. Monitor urine output Accurate I's and O's. stable Renal ultrasound with no hydronephrosis. Right renal cyst 2.2 cm. Rare eosinophils urine. Chronic apixaban use Normocytic normochromic anemia Currently renally dose of 2.5 mg twice daily. Monitor CBC daily. Follow trends Debility: - Secondary to comorbid conditions above. Patient will need SNF placement. Continue rehab efforts. Prophylaxis -GI -Lansoprazole -DVT -SCD/apixaban Discussed with Nurse Ann-Marie and with his caregiver Miss Corinna Powell and she wants to get PEG tube placement will sign the consent later today. Discharge Planning awaiting final by Palliative care probable on Friday today the Caregiver won't be able to come during the discharge Hours Martin Hays MD Jan 24, 2018 15:15
[2018-01-24 16:00] VITALS: BP 123/69; PULSE 109; PULSE 78; RESP 20; TEMP 98.3; O2SAT 94
[2018-01-24] MEDS ORDERED: ceFAZolin 2 GM PREMIX 50 ML IV SCH (16:45)
--- NOTE | 2018-01-24 16:45 | PD.CONS ---
HPI History of Present Illness This is a 72 year old M with multiple medical problems who presented initally to the ER with complaints of SOB for the past couple weeks and was found to have acute congestive heart failure. Pt now S/P PEA arrest which was thought to be possibly secondary to aspiration of feces given abdominal distention at that time. Our service previously followed pt and did a decompressive colonoscopy on January 06 --> Moderate diverticulosis in the sigmoid colon. Colon distention , decompressed. Internal and external hemorrhoids. Pt is now extubated and on a medical floor. Pt is confused and in soft wrist restraints so information was obtained through chart review. PO intake has been inadequate and pt has been refusing medication, palliative care addressed goals with patients hired caregiver who would like to proceed with PEG placement. Per palliative care notes, they are concerned pt will pull out PEG given reports of agitation. Speech therapy has seen patient who also state pt will need enteral feedings if goals are aggressive. (Madina Moreno) PFSH Past Medical History Hypertension Type 2 diabetes Atrial fibrillation status post ablation on 11/10/17, cardioversion on 12/21 Sleep apnea Chronic kidney disease TIA Hypothyroidism CHF Past Surgical History Cholecystectomy (Madina Moreno) Coded Allergies: penicillin G (Unverified Allergy, Severe, Hives, 12/28/17) Family History Her review of prior H&P in electronic record mother with Alzheimer's father with CAD and CVA history. Social History Patient denies tobacco, alcohol, or illicit drug use. (Madina Moreno) Review of Systems Unable to obtain (Madina Moreno) GI Exam Vitals I&O Vital Signs Date Time Temp Pulse Resp B/P (MAP) Pulse Ox O2 Delivery O2 Flow Rate FiO2 01/24/18 08:00 Room Air 01/24/18 08:00 98.5 114 20 108/68 (81) 96 01/24/18 04:00 99.0 105 18 108/65 (79) 96 01/24/18 04:00 103 01/24/18 00:00 97.9 107 18 104/59 (74) 97 01/24/18 00:00 97 01/23/18 21:00 Room Air 01/23/18 20:00 98.4 107 19 121/64 (83) 98 01/23/18 20:00 105 I/O 01/23/18 01/23/18 01/23/18 01/24/18 01/24/18 01/24/18 07:00 15:00 23:00 07:00 15:00 23:00 Intake Total 1120 ml 25 ml 1000 ml Balance 1120 ml 25 ml 1000 ml Intake Oral 120 ml 25 ml 0 ml IV Total 1000 ml 1000 ml # Voids 3 3 3 # Bowel Movements 3 2 Imaging Last Impressions Chest X-Ray 01/14/18 0000 Signed Impressions: Service Date/Time: Sunday, January 14, 2018 07:34 - CONCLUSION: Increasing interstitial edema otherwise stable. Tee Jimenes MD FACR Abdomen X-Ray 01/07/18 0600 Signed Impressions: Service Date/Time: Sunday, January 07, 2018 04:29 - CONCLUSION: Possible slight interval improvement in gaseous distention of bowel Lito Adkins MD Abdomen/Pelvis CT 01/04/18 0000 Signed Impressions: Service Date/Time: Thursday, January 04, 2018 10:34 - CONCLUSION: 1. Abnormal bowel gas pattern most characteristic of an ileus. There is a small amount of ascitic fluid in right paracolic gutter and pelvis. 2. Bilateral pleural effusions right greater than left with consolidation in both posterior lung bases. 3. Nasogastric tube in place with the tip in the proximal duodenum. 4. Mild diverticulosis. John Neville MD Renal Ultrasound 01/01/18 0000 Signed Impressions: Service Date/Time: December 18:16 - CONCLUSION: 1. No evidence of hydronephrosis. 2. No new or significant changes compared to the prior exam 3. 2.2 cm right renal cyst. 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, in soft wrist restraints (Madina Moreno) Assessment and Plan Plan ASSESSMENT - Inadequate PO intake and refusing to take meds Nutrition recommends enteral feedings if goals remain aggressive 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 Hillman and this note is written on his behalf (Madina Moreno) Physician Comments Patient seen and examined Agree with above Continue with current supportive care Monitor labs Plan for PEG placement on Friday (Juan Hillman MD) Madina Moreno Jan 24, 2018 16:45 Juan Hillman MD Jan 24, 2018 22:16
[2018-01-24 20:00] VITALS: BP 120/69; PULSE 88; PULSE 97; RESP 18; TEMP 97.8; O2SAT 96
[2018-01-24] MEDS: ATORVASTATIN 40 MG TAB PO SCH (21:00)
[2018-01-24] MEDS: DOXAZOSIN MESYLATE 4 MG TAB PO SCH (22:01)
[2018-01-24] MEDS: PRAMIPEXOLE DIHYDROCHLORIDE 0.25 MG TAB PO SCH (22:02)
[2018-01-25] VITALS (7 sets, daily range): BP systolic 103–141; BP diastolic 60–81; PULSE 60–110; RESP 18–20; TEMP 97.2–98.4; O2SAT 94–96
[2018-01-25] MEDS: DILTIAZEM HCL 30 MG TAB PO SCH ×4 (03:46→21:40)
[2018-01-25] MEDS: oxyCODONE/ACETAMINOPHEN 5 MG/325 MG TAB PO PRN ×3 (03:52→21:41)
[2018-01-25] MEDS: ERYTHROMYCIN EC 250 MG TABEC PO SCH ×3 (06:00→21:43)
[2018-01-25] MEDS: LEVOTHYROXINE SODIUM 125 MCG TAB PO SCH (06:00)
[2018-01-25] MEDS: FREE WATER G-TUBE SCH ×4 (06:00→16:56)
[2018-01-25] MEDS: METOCLOPRAMIDE HCL 10 MG/2 ML VIAL IV PUSH SCH ×3 (06:27→21:40)
[2018-01-25] MEDS: CHLORHEXIDINE 0.12% (ORAL KIT) 15 ML CUP MT SCH ×2 (08:00→20:00)
[2018-01-25] MEDS: AMIODARONE 200 MG TAB PO SCH (09:00)
[2018-01-25] MEDS: COLLAGENASE OINT 30 GM TUBE TOPICAL SCH (09:00)
[2018-01-25] MEDS: DOCUSATE SODIUM 50 MG/SENNA 8.6 MG TAB PO SCH ×2 (09:00→21:41)
[2018-01-25] MEDS: POTASSIUM BICARBONATE 25 MEQ EFFERVESCENT TAB NG SCH ×2 (09:00→21:00)
[2018-01-25] MEDS: BETHANECHOL CHL 25 MG TAB PO SCH (09:00)
[2018-01-25] MEDS: SODIUM HYPOCHLORITE 0.125% 500 ML BTL TOPICAL SCH (09:00)
[2018-01-25] MEDS: LANSOPRAZOLE SOLUTAB 30 MG TAB NG SCH (09:00)
[2018-01-25] MEDS: DIGOXIN SOLUTION 0.125 MG/2.5 ML CUP PO SCH (09:00)
[2018-01-25] MEDS: SERTRALINE HCL 50 MG TAB PO SCH ×2 (09:00→21:42)
[2018-01-25] MEDS: QUEtiapine FUMARATE 25 MG TAB PO SCH ×2 (09:00→21:42)
[2018-01-25] MEDS: SODIUM CHLORIDE 0.9% FLUSH 10 ML FLUSH IV FLUSH SCH ×2 (09:00→21:00)
[2018-01-25] MEDS: POLYETHYLENE GLYCOL 17 GM PKG PO SCH ×2 (09:00→21:00)
[2018-01-25] MEDS: LACTULOSE SYRUP 20 GM/30 ML CUP PO SCH ×4 (09:00→21:42)
[2018-01-25] MEDS: CEFUROXIME AXETIL 500 MG TAB PO SCH ×2 (09:00→21:42)
[2018-01-25] MEDS: ALLOPURINOL 100 MG TAB PO SCH (09:00)
--- NOTE | 2018-01-25 09:40 | HHI.PR ---
Subjective Remarks 72-year-old gentleman with multiple medical problems including morbid obesity, obstructive sleep apnea, diabetes mellitus, and chronic kidney insufficiency, underwent cardiac ablation for uncontrolled A. fib. Patient was intubated for procedure, and is transferred to ICU postprocedure for weaning of the mechanical ventilation due to increased abdominal girth. status post Colonoscopy for Decompression, status post PEA arrest, was on vasopressors, 01/23: stable in his bedroom, his Caregiver will come today to discuss with energy conservation specialist if she wants Hospice versus PEG tube placement discussed with nurse. 01/24: discussed with his Caregiver Miss Corinna Powell and she wants to continue with PEG tube placement, she is been delayed due to that was not possible to come yesterday for Palliative care meeting was asked for GI and Interventional Radiology for PEG tube placement. patient continue encephalopathic. 01/25: Seen in his bedroom, discussed with nurse, due to Inadequate oral intake, asked for GI specialist for PEG tube placement, recommended PEG tube for Tomorrow, but not yet consent signed. no nausea, vomit or diarrhea. held Eliquis. Objective Vital Signs Date Time Temp Pulse Resp B/P (MAP) Pulse Ox O2 Delivery O2 Flow Rate FiO2 01/25/18 05:49 97.2 60 20 105/60 (75) 96 01/25/18 04:00 96 01/25/18 00:00 98.0 99 18 124/71 (88) 95 01/25/18 00:00 Room Air 01/25/18 00:00 96 01/24/18 21:00 Room Air 01/24/18 20:41 21 01/24/18 20:00 97 01/24/18 20:00 97.8 88 18 120/69 (86) 96 01/24/18 16:00 98.3 78 20 123/69 (87) 94 01/24/18 16:00 109 01/24/18 12:00 99.3 98 20 119/70 (86) 94 01/24/18 12:00 106 I/O 01/24/18 01/24/18 01/24/18 01/25/18 01/25/18 01/25/18 07:00 15:00 23:00 07:00 15:00 23:00 Intake Total 1000 ml 650 ml 1650 ml 2645 ml Balance 1000 ml 650 ml 1650 ml 2645 ml Intake Oral 0 ml 0 ml 120 ml IV Total 1000 ml 650 ml 1650 ml 2525 ml # Voids 3 1 2 # Bowel Movements 0 0 Result Diagram: 01/23/18 0421 01/23/18 0421 Imaging Last Impressions Chest X-Ray 01/14/18 0000 Signed Impressions: Service Date/Time: Sunday, January 14, 2018 07:34 - CONCLUSION: Increasing interstitial edema otherwise stable. Tee Jimenes MD FACR Abdomen X-Ray 01/07/18 0600 Signed Impressions: Service Date/Time: Sunday, January 07, 2018 04:29 - CONCLUSION: Possible slight interval improvement in gaseous distention of bowel Lito Adkins MD Abdomen/Pelvis CT 01/04/18 0000 Signed Impressions: Service Date/Time: Thursday, January 04, 2018 10:34 - CONCLUSION: 1. Abnormal bowel gas pattern most characteristic of an ileus. There is a small amount of ascitic fluid in right paracolic gutter and pelvis. 2. Bilateral pleural effusions right greater than left with consolidation in both posterior lung bases. 3. Nasogastric tube in place with the tip in the proximal duodenum. 4. Mild diverticulosis. John Neville MD Renal Ultrasound 01/01/18 0000 Signed Impressions: Service Date/Time: December 18:16 - CONCLUSION: 1. No evidence of hydronephrosis. 2. No new or significant changes compared to the prior exam 3. 2.2 cm right renal cyst. Luiz Frey MD Procedures Endotracheal intubation and extubation Colonoscopy. Cardiac cath. Other Results Laboratory Tests Test 12/28/17 05:15 12/28/17 23:38 12/29/17 07:28 12/30/17 12:15 Total Creatine Kinase 107 U/L Creatine Kinase MB 2.8 NG/ML B-Type Natriuretic Peptide 1350 PG/ML Troponin I 0.07 NG/ML Thyroid Stimulating Hormone 3rd Gen 3.060 uIU/ML Nasal Screen MRSA (PCR) MRSA NOT DETECTED Test 01/01/18 04:10 01/01/18 11:10 01/04/18 04:14 01/09/18 17:50 Prothrombin Time 13.4 SEC Prothromb Time International Ratio 1.3 RATIO Activated Partial Thromboplast Time 28.4 SEC Urine Eosinophils RARE /HPF Urine Random Creatinine 164.1 MG/DL Urine Random Sodium 12 MEQ/L Amylase Level 13 U/L Lipase 35 U/L Protein Corrected Calcium 7.7 MG/DL Test 01/12/18 11:12 01/13/18 03:50 01/14/18 16:15 01/16/18 04:00 Blood Gas Ventilator Setting CPAP7/5 Blood Gas Inspired Oxygen 35 % Phosphorus Level 2.3 MG/DL Blood Gas Puncture Site LT RADIAL Blood Gas Patient Temperature 98.6 Blood Gas HCO3 26 mmol/L Blood Gas Base Excess 3.1 mmol/L Blood Gas Oxygen Saturation 94 % Arterial Blood pH 7.50 Arterial Blood Partial Pressure CO2 34 mmHg Arterial Blood Partial Pressure O2 73 mmHG Arterial Blood Oxygen Content 18.1 Vol % Arterial Blood Carboxyhemoglobin 1.3 % Arterial Blood Methemoglobin 0.6 % Blood Gas Hemoglobin 13.7 G/DL Oxygen Delivery Device NASAL CANNULA Blood Gas Liter Flow 2 L/M Neutrophils (%) (Auto) 79.3 % Lymphocytes (%) (Auto) 12.1 % Monocytes (%) (Auto) 5.5 % Eosinophils (%) (Auto) 2.4 % Basophils (%) (Auto) 0.7 % Neutrophils # (Auto) 6.3 TH/MM3 Lymphocytes # (Auto) 1.0 TH/MM3 Monocytes # (Auto) 0.4 TH/MM3 Eosinophils # (Auto) 0.2 TH/MM3 Basophils # (Auto) 0.1 TH/MM3 CBC Comment DIFF FINAL Differential Comment Blood Urea Nitrogen 43 MG/DL Creatinine 1.90 MG/DL Random Glucose 278 MG/DL Total Protein 6.1 GM/DL Albumin 2.1 GM/DL Calcium Level 8.4 MG/DL Magnesium Level 1.9 MG/DL Alkaline Phosphatase 119 U/L Aspartate Amino Transf (AST/SGOT) 93 U/L Alanine Aminotransferase (ALT/SGPT) 104 U/L Total Bilirubin 0.6 MG/DL Sodium Level 149 MEQ/L Potassium Level 3.6 MEQ/L Chloride Level 111 MEQ/L Carbon Dioxide Level 32.7 MEQ/L Test 01/21/18 06:30 01/23/18 04:21 Digoxin Level 1.1 NG/ML White Blood Count 9.2 TH/MM3 Red Blood Count 4.76 MIL/MM3 Hemoglobin 12.3 GM/DL Hematocrit 39.7 % Mean Corpuscular Volume 83.3 FL Mean Corpuscular Hemoglobin 25.9 PG Mean Corpuscular Hemoglobin Concent 31.1 % Red Cell Distribution Width 22.2 % Platelet Count 321 TH/MM3 Mean Platelet Volume 9.9 FL Hematology Comments Blood Urea Nitrogen 25 MG/DL Creatinine 1.54 MG/DL Random Glucose 251 MG/DL Calcium Level 8.2 MG/DL Sodium Level 141 MEQ/L Potassium Level 3.9 MEQ/L Chloride Level 115 MEQ/L Carbon Dioxide Level 17.6 MEQ/L Anion Gap 8 MEQ/L Estimat Glomerular Filtration Rate 45 ML/MIN Objective Remarks GENERAL: No acute distress. CARDIOVASCULAR: Normal rate and regular rhythm without murmurs, gallops, or rubs. RESPIRATORY: Upper lung hernández are clear to auscultation. GASTROINTESTINAL: soft, non tender. NEUROLOGICAL: Awake, alert to self only. Very confused. Medications and IVs Current Medications Medications (Trade) Dose Ordered Sig/Az Route Start Time Stop Time Status Last Admin (D50w (Vial) Inj) 50 ml UNSCH PRN IV PUSH 12/28/17 07:00 01/04/18 06:48 (Glucagon Inj) 1 mg UNSCH PRN OTHER 12/28/17 07:00 (NS Flush) 2 ml UNSCH PRN IV FLUSH 12/28/17 07:00 01/07/18 05:32 (NS Flush) 2 ml BID IV FLUSH 12/28/17 09:00 01/23/18 08:23 (Tylenol) 650 mg Q6H PRN PO 12/28/17 07:00 (Delaney-Colace) 1 tab BID PO 12/28/17 09:00 01/21/18 08:25 (Senokot) 17.2 mg Q12H PRN PO 12/28/17 07:00 (Dulcolax Supp) 10 mg DAILY PRN RECTAL 12/28/17 07:00 (Cordarone) 200 mg DAILY PO 12/28/17 09:00 01/23/18 08:21 (Lipitor) 40 mg HS PO 12/28/17 21:00 01/23/18 22:30 (Cardura) 4 mg HS PO 12/28/17 21:00 01/24/18 22:01 (Synthroid) 125 mcg DAILY@0600 PO 12/28/17 07:00 01/24/18 04:57 (Zoloft) 50 mg BID PO 12/28/17 09:00 01/23/18 22:29 (Mirapex) 0.5 mg HS PO 12/28/17 21:00 01/24/18 22:02 (Percocet 5-325 Mg) 1 tab Q4H PRN PO 12/31/17 19:30 01/14/18 09:14 (Percocet 5-325 Mg) 2 tab Q4H PRN PO 12/31/17 19:30 01/25/18 03:52 (Atropine Inj) 0.5 mg UNSCH PRN IV PUSH 12/31/17 19:30 (Zofran Inj) 4 mg Q4H PRN IV PUSH 12/31/17 19:30 01/06/18 22:58 (Zyloprim) 100 mg DAILY PO 01/02/18 09:00 01/21/18 08:25 (Urecholine) 25 mg DAILY PO 01/02/18 09:00 01/21/18 08:25 Patient Own Medication PT OWN MED: NIACINAM... DAILY PO 01/02/18 09:00 Future Hold (Chloraseptic [place]) 2 spray Q2H PRN OROPHARYNG 01/01/18 12:00 (Miralax) 17 gm BID PO 01/02/18 09:00 01/21/18 08:26 (Lactulose Liq) 30 ml QID PO 01/02/18 09:00 01/21/18 17:01 (Reglan Inj) 5 mg Q8HR IV PUSH 01/02/18 14:00 01/25/18 06:27 (Erythromycin Ec) 250 mg Q8HR PO 01/05/18 16:00 01/24/18 04:57 (Eliquis) 2.5 mg BID PO 01/07/18 09:00 Future Hold 01/23/18 22:30 (Levemir Inj) 4 units BID SQ 01/06/18 21:00 01/24/18 21:54 (NovoLOG SUPPLEMENTAL SCALE) 1 ACHS SQ 01/06/18 21:00 01/24/18 21:55 (Peridex 0.12% Liq) 15 ml BID@08,20 MT 01/07/18 08:00 01/21/18 20:15 Propofol 100 ml @ 3.261 mls/ hr TITRATE PRN IV 01/07/18 00:15 01/11/18 23:50 (Effer-K Eff) 25 meq BID NG 01/08/18 21:00 01/21/18 08:25 (Duoneb Neb) 1 ampule Q2HR NEB PRN NEB 01/14/18 16:00 01/18/18 16:36 Esmolol HCl/ Sodium Chloride 250 ml @ 28.41 mls/ hr TITRATE PRN IV 01/14/18 17:30 (Lanoxin Liq) 0.125 mg DAILY PO 01/15/18 16:00 01/24/18 10:15 (Prevacid Odt) 30 mg DAILY NG 01/16/18 09:00 01/21/18 08:25 (Ceftin) 500 mg Q12HR PO 01/18/18 09:00 01/23/18 22:29 (Lasix) 40 mg DAILY NG 01/19/18 09:00 Future Hold 01/21/18 08:25 (Free Water) 200 ml Q6HR G-TUBE 01/18/18 18:00 01/23/18 05:49 (Dakin'S 0.125% Soln) 500 ml DAILY TOPICAL 01/20/18 09:00 01/24/18 13:35 (Santyl Oint) 1 applic DAILY TOPICAL 01/20/18 09:00 01/24/18 13:35 (Xylocaine 5% Oint) 1 applic Q8H PRN TOPICAL 01/19/18 15:15 (Cardizem) 60 mg Q6H PO 01/21/18 21:00 01/25/18 03:46 Dextrose/Sodium Chloride 1,000 ml @ 100 mls/hr Q10H IV 01/21/18 15:15 01/24/18 23:39 (SEROquel) 25 mg BID PO 01/22/18 21:00 01/24/18 22:01 Cefazolin Sodium/ Dextrose 50 ml @ 100 mls/hr CROSSING GUARD IV 01/24/18 16:45 01/27/18 16:44 A/P Assessment and Plan (1) Acute on chronic systolic CHF (congestive heart failure) ICD Code: I50.23 - Acute on chronic systolic (congestive) heart failure (2) PAF (paroxysmal atrial fibrillation) ICD Code: I48.0 - Paroxysmal atrial fibrillation (3) Acute kidney injury superimposed on chronic kidney disease ICD Code: N17.9 - Acute kidney failure, unspecified; N18.9 - Chronic kidney disease, unspecified (4) Hypothyroidism ICD Code: E03.9 - Hypothyroidism Status: Acute (5) Diabetes ICD Code: E11.9 - Diabetes Status: Chronic (6) Hyperkalemia ICD Code: E87.5 - Hyperkalemia Status: Acute This is a pleasant 72 y/o male with Atrial Fibrillation with RVR, underwent Cardiac Ablation, developed respiratory failure and was postoperatively intubated, was in Intensive care unit, Status post PEA arrest. Concern for aspiration event. Patient was extubated. Prolonged ICU course. He has been downgraded to the floor. Patient with profound encephalopathy, confused, ? anoxic injury. Not cooperating with treatment. not eating or drinking enough, may need PEG tube placement, palliative care will get a meeting with caregiver today. Acute hypoxic and hypercarbic respiratory failure MUNA -nocturnal CPAP 8 cm H2O Moderate right pleural effusion Extubated 01/02. reintubated 01/07 during PEA arrest, extubated again 01/12/18 wean fio2 for goal spo2 > 90% Nebs as needed EzPAP, Acapella Chronic diastolic heart failure, with exacerbation ejection fraction 45-50% recurrent atrial fibrillation with rapid ventricular response s/p PEA arrest 01/07 Status post ablation for A. fib/flutter Hypertension Dyslipidemia Continue amiodarone 200 mg by mouth daily Received IV digoxin and IV metoprolol 01/14 digoxin 0.125 mg p.o. daily Increase Cardizem 60 mg p.o. every 6 hours. Holding diltiazem 240 mg p.o. daily/ home medication Continue atorvastatin 40 mg p.o. daily for his lipidemia At home on fish oil/cholecalciferol 1200/1000 1 tablet twice daily/home medication Holding ramipril 5 mg p.o. daily for hypertension with acute kidney injury Dr. Ramirez evaluated no further plans at this time Encephalopathy,? Anoxic injury: Depression/anxiety Chronic narcotic use continue sertraline 50 mg twice daily/home medication for depression Continue pramipexole 0.5 mg p.o. daily for extrapyramidal side effects Currently holding buspirone 5 mg 3 times daily anxiety On oxycodone/acetaminophen 5/325 1 - 2 tablets every 4 hours as needed pain PT/OT/speech He remains encephalopathic Gastroesophageal reflux disease Elevated transaminases Ileus Sigmoid diverticulosis Internal/external hemorrhoids Advance diet per speech therapy recommendations. Not tolerating enough p.o. nutrition yet. Continue NGT. If no improvement, will need to discuss with family regarding permanent tube feeding. Docusate sodium/senna 1 tablet twice daily for bowel regimen with polyethylene glycol 17 g twice daily and lactulose 30 cc 4 times daily Follow transaminases intermittently is likely congestion. Further workup and On metoclopramide 5 mg IV every 8 hours and erythromycin [address] abdomen/pelvis revealed dilated small and large bowel. Colonoscopy by Dr. Bella/revealed sigmoid diverticulosis. Decompression of colon. Internal and external hemorrhoids. Asked again for GI specialist evaluation for probable PEG tube placement for tomorrow. BPH/overflow Continue doxazosin 4 mg daily and bethanechol 25 mg daily Diabetes mellitus Hypothyroidism Low testosterone Currently on insulin detemir 4 units twice daily with NovoLog sliding scale insulin/low regimen before meals at bedtime At home on insulin glargine 12 units twice daily with sliding scale insulin Continue levothyroxine 125 mcg p.o. daily. TSH 3.06 Holding testosterone Even some uncontrolled blood sugar the patient is not eating will wait for PEG tube placement. Acute kidney injury likely secondary to cardiorenal syndrome Renal cyst right 2.2 cm Followed by nephrology. Monitor urine output Accurate I's and O's. stable Renal ultrasound with no hydronephrosis. Right renal cyst 2.2 cm. Rare eosinophils urine. Chronic apixaban use Normocytic normochromic anemia Currently renally dose of 2.5 mg twice daily. Monitor CBC daily. Follow trends Debility: - Secondary to comorbid conditions above. Patient will need SNF placement. Continue rehab efforts. Prophylaxis -GI -Lansoprazole -DVT -SCD/apixaban Discussed with nurse miss Jacobsen no new issues, awaiting for Caregiver to sign consent. Discharge Planning awaiting final by Palliative care probable on Friday today the Caregiver won't be able to come during the discharge Hours Martin Hays MD Jan 25, 2018 09:40
[2018-01-25] MEDS: DEXTROSE 5%-NACL 0.225% INJ 1,000 ML IV SCH ×2 (09:41→21:45)
[2018-01-25] MEDS: INSULIN DETEMIR 100 UNITS/ML VIAL SQ SCH ×2 (09:42→21:40)
[2018-01-25] MEDS: INSULIN ASPART SUPPLEMENTAL SCALE SQ SCH ×4 (09:43→21:40)
--- NOTE | 2018-01-25 11:16 | HHI.NPPN ---
Subjective History of Present Illness 72 year old male with Chf/Atrial tachycardia/Afib admitted with Tachyarrhythmia Additional Remarks Patient remains confused. Pulled IV out. EGD with PEG tube placement tomorrow. (Lupe Goodman) Objective Data Data Vital Signs Date Time Temp Pulse Resp B/P (MAP) Pulse Ox O2 Delivery O2 Flow Rate FiO2 01/25/18 08:00 97.8 97 20 103/63 (76) 94 01/25/18 05:49 97.2 60 20 105/60 (75) 96 01/25/18 04:00 96 01/25/18 00:00 98.0 99 18 124/71 (88) 95 01/25/18 00:00 Room Air 01/25/18 00:00 96 01/24/18 21:00 Room Air 01/24/18 20:41 21 01/24/18 20:00 97 01/24/18 20:00 97.8 88 18 120/69 (86) 96 01/24/18 16:00 98.3 78 20 123/69 (87) 94 01/24/18 16:00 109 01/24/18 12:00 99.3 98 20 119/70 (86) 94 01/24/18 12:00 106 (Lupe Goodman) -: 01/23/18 0421 01/23/18 0421 Physical Exam General Appearance: Well Developed, Well Nourished (Lupe Goodman) Neck Neck Exam: Neck Supple (Lupe Goodman) Pulmonary Resp Exam: No Distress, Crackles, Rhonchi, Decreased Bases, Diminished Breath Sounds (Lupe Goodman) Cardiology CV Exam: Arrhythmia (Lupe Goodman) Gastrointestinal/Abdomen GI Exam: Soft, Non-Tender, Bowel Sounds Present (Lupe Goodman) Extremeties Extremities Exam: Trace Edema (Lupe Goodman) Neurologic Neuro Exam: Alert Neuro Remarks restrained confused (Lupe Goodman) Assessment/Plan Problem List: (1) Acute renal failure ICD Codes: N17.9 - Acute kidney failure, unspecified Status: Acute Plan: Patient had cardiogenic shock and low blood pressure contributing, and cardiorenal syndrome He has underlying tachyarrhythmia Atrial fibrillation/atrial tachycardia s/p cardiac Ablation Stable renal function Remains confused and pulled IV out. Monitor renal panel periodically. Labs for AM EGD and PEG placement tomorrow. (2) Chronic kidney disease, stage III (moderate) ICD Codes: N18.3 - Chronic kidney disease, stage III (moderate) Status: Acute Plan: Baseline care around 1.7 (3) Congestive heart failure ICD Codes: I50.9 - Heart failure, unspecified Status: Acute Plan: He is in cardiogenic shock low blood pressure causing the cardiorenal syndrome (4) PAF (paroxysmal atrial fibrillation) ICD Codes: I48.0 - Paroxysmal atrial fibrillation Plan: Cardiology was following (5) Diabetes ICD Codes: E11.9 - Diabetes Status: Chronic Plan: Monitor blood glucose (6) Acute on chronic systolic CHF (congestive heart failure) ICD Codes: I50.23 - Acute on chronic systolic (congestive) heart failure ( Lupe Goodman) Problem List: (1) Acute renal failure ICD Codes: N17.9 - Acute kidney failure, unspecified Status: Acute Plan: Patient had cardiogenic shock and low blood pressure contributing, and cardiorenal syndrome He has underlying tachyarrhythmia Atrial fibrillation/atrial tachycardia s/p cardiac Ablation Stable renal function Remains confused and pulled IV out. Monitor renal panel periodically. Labs for AM EGD and PEG placement tomorrow. Patient seen and examined, agree with above. For PEG and EGD tomorrow. (2) Chronic kidney disease, stage III (moderate) ICD Codes: N18.3 - Chronic kidney disease, stage III (moderate) Status: Acute Plan: Baseline care around 1.7 (3) Congestive heart failure ICD Codes: I50.9 - Heart failure, unspecified Status: Acute Plan: He is in cardiogenic shock low blood pressure causing the cardiorenal syndrome (4) PAF (paroxysmal atrial fibrillation) ICD Codes: I48.0 - Paroxysmal atrial fibrillation Plan: Cardiology was following (5) Diabetes ICD Codes: E11.9 - Diabetes Status: Chronic Plan: Monitor blood glucose (6) Acute on chronic systolic CHF (congestive heart failure) ICD Codes: I50.23 - Acute on chronic systolic (congestive) heart failure ( Eden Butler MD) Problem Qualifiers (1) Acute renal failure: Qualified Codes: N17.8 - Other acute kidney failure (2) Congestive heart failure: Qualified Codes: I50.9 - Heart failure, unspecified Lupe Goodman Jan 25, 2018 11:16 Eden Butler MD Jan 25, 2018 14:56
--- NOTE | 2018-01-25 12:29 | HHI.GIFU ---
Subjective Remarks Pt resting in bed In soft wrist restraints Per RN pt ripped out hi IV earlier Library Monitor has not come to sign consents for EGD yet Pt remains confused (Madina Moreno) Objective Vitals I&O Vital Signs Date Time Temp Pulse Resp B/P (MAP) Pulse Ox O2 Delivery O2 Flow Rate FiO2 01/25/18 08:00 97.8 97 20 103/63 (76) 94 01/25/18 05:49 97.2 60 20 105/60 (75) 96 01/25/18 04:00 96 01/25/18 00:00 98.0 99 18 124/71 (88) 95 01/25/18 00:00 Room Air 01/25/18 00:00 96 01/24/18 21:00 Room Air 01/24/18 20:41 21 01/24/18 20:00 97 01/24/18 20:00 97.8 88 18 120/69 (86) 96 01/24/18 16:00 98.3 78 20 123/69 (87) 94 01/24/18 16:00 109 I/O 01/24/18 01/24/18 01/24/18 01/25/18 01/25/18 01/25/18 07:00 15:00 23:00 07:00 15:00 23:00 Intake Total 1000 ml 650 ml 1650 ml 2645 ml Balance 1000 ml 650 ml 1650 ml 2645 ml Intake Oral 0 ml 0 ml 120 ml IV Total 1000 ml 650 ml 1650 ml 2525 ml # Voids 3 1 2 # Bowel Movements 0 0 Laboratory Date/Time Source Procedure Growth Status 01/12/18 10:15 Sputum Endotracheal Gram Stain - Final Complete 01/12/18 10:15 Sputum Culture - Final Escherichia Coli Complete 01/20/18 09:55 Wound Buttock Gram Stain - Final Complete 01/20/18 09:55 Wound Culture - Final Henrietta Albicans Complete Imaging Last Impressions Chest X-Ray 01/14/18 0000 Signed Impressions: Service Date/Time: Sunday, January 14, 2018 07:34 - CONCLUSION: Increasing interstitial edema otherwise stable. Tee Jimenes MD FACR Abdomen X-Ray 01/07/18 0600 Signed Impressions: Service Date/Time: Sunday, January 07, 2018 04:29 - CONCLUSION: Possible slight interval improvement in gaseous distention of bowel Lito Adkins MD Abdomen/Pelvis CT 01/04/18 0000 Signed Impressions: Service Date/Time: Thursday, January 04, 2018 10:34 - CONCLUSION: 1. Abnormal bowel gas pattern most characteristic of an ileus. There is a small amount of ascitic fluid in right paracolic gutter and pelvis. 2. Bilateral pleural effusions right greater than left with consolidation in both posterior lung bases. 3. Nasogastric tube in place with the tip in the proximal duodenum. 4. Mild diverticulosis. John Neville MD Renal Ultrasound 01/01/18 0000 Signed Impressions: Service Date/Time: December 18:16 - CONCLUSION: 1. No evidence of hydronephrosis. 2. No new or significant changes compared to the prior exam 3. 2.2 cm right renal cyst. Luiz Frey MD Physical Exam HEENT: Normocephalic; atraumatic CHEST: Even/unlabored CARDIAC: RRR ABDOMEN: soft, nondistended, bowel sounds active SKIN: Normal; no rash; no jaundice. POLICY LOAN CALCULATOR: Confused, in soft wrist restraints (Madina Moreno) Assessment and Plan Plan ASSESSMENT - Inadequate PO intake and refusing to take meds Nutrition recommends enteral feedings if goals remain aggressive Pt has a hired network management specialist who makes medical decisions would like to proceed with PEG tube - Previously seen by our service for decompressive colonoscopy January 07 per HPI - S/P PEA- now extubated on medical floor - Confused- in soft wrist restraints- unable to provide history (01/25) No exchange underwriting consultant night. Per RN pt remains confused, he ripped out his IV earlier. Library Monitor has not come to sign consent for PEG yet. 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 Hillman and this note is written on his behalf (Madina Moreno) Physician Comments Patient seen and examined Agree with above Continue with current supportive care Monitor labs Plan for an EGD with PEG placement tomorrow (Juan Hillman MD) Madina Moreno Jan 25, 2018 12:29 Juan Hillman MD Jan 25, 2018 21:00
[2018-01-25] MEDS: PRAMIPEXOLE DIHYDROCHLORIDE 0.25 MG TAB PO SCH (21:40)
[2018-01-25] MEDS: ATORVASTATIN 40 MG TAB PO SCH (21:42)
[2018-01-25] MEDS: DOXAZOSIN MESYLATE 4 MG TAB PO SCH (21:42)
[2018-01-26] VITALS (9 sets, daily range): BP systolic 105–137; BP diastolic 65–76; PULSE 81–119; RESP 18–20; TEMP 97.8–98.7; O2SAT 94–96
[2018-01-26] MEDS: DILTIAZEM HCL 30 MG TAB PO SCH ×4 (04:04→21:11)
[2018-01-26] MEDS: DEXTROSE 5%-NACL 0.225% INJ 1,000 ML IV SCH ×2 (05:15→15:15)
[2018-01-26] MEDS: FREE WATER G-TUBE SCH ×5 (05:29→21:13)
[2018-01-26] MEDS: ERYTHROMYCIN EC 250 MG TABEC PO SCH ×3 (06:00→21:11)
[2018-01-26] MEDS: LEVOTHYROXINE SODIUM 125 MCG TAB PO SCH (06:00)
[2018-01-26] MEDS: METOCLOPRAMIDE HCL 10 MG/2 ML VIAL IV PUSH SCH ×3 (06:00→21:12)
[2018-01-26 07:16] LABS: AUTOMATED NEUTROPHIL # 4.9 TH/MM3 (1.8-7.7); BASOPHIL % 0.4 % (0.0-2.0); EOSINOPHIL # 0.2 TH/MM3 (0-0.4); EOSINOPHIL % 3.3 % (0.0-4.0); HEMOGLOBIN 10.9 GM/DL (13.0-17.0); LYMPH % 15.3 % (9.0-44.0); LYMPHOCYTE # 1.1 TH/MM3 (1.0-4.8); MEAN CELL VOLUME 83.5 FL (80.0-100.0); MEAN CORPUSCULAR HEMOGLOBIN 26.9 PG (27.0-34.0); MEAN CORPUSCULAR HGB CONC 32.2 % (32.0-36.0); MEAN PLATELET VOLUME 9.2 FL (7.0-11.0); MONO % 9.4 % (0.0-8.0); MONOCYTE # 0.6 TH/MM3 (0-0.9); NEUT % 71.6 % (16.0-70.0); PLATELET COUNT 286 TH/MM3 (150-450); RED BLOOD COUNT 4.07 MIL/MM3 (4.50-5.90); RED CELL DISTRIBUTION WIDTH 23.2 % (11.6-17.2); WHITE BLOOD COUNT 6.9 TH/MM3 (4.0-11.0)
[2018-01-26 07:46] LABS: BICARBONATE 23.7 MEQ/L (21.0-32.0); CALCIUM 7.5 MG/DL (8.5-10.1); CREATININE 1.37 MG/DL (0.60-1.30)
[2018-01-26] MEDS: CHLORHEXIDINE 0.12% (ORAL KIT) 15 ML CUP MT SCH ×2 (08:00→20:00)
[2018-01-26] MEDS: SERTRALINE HCL 50 MG TAB PO SCH ×2 (09:00→21:12)
[2018-01-26] MEDS: DOCUSATE SODIUM 50 MG/SENNA 8.6 MG TAB PO SCH ×2 (09:00→21:14)
[2018-01-26] MEDS: QUEtiapine FUMARATE 25 MG TAB PO SCH ×2 (09:00→21:12)
[2018-01-26] MEDS: POLYETHYLENE GLYCOL 17 GM PKG PO SCH ×2 (09:00→21:00)
[2018-01-26] MEDS: CEFUROXIME AXETIL 500 MG TAB PO SCH ×2 (09:00→21:12)
[2018-01-26] MEDS: ALLOPURINOL 100 MG TAB PO SCH (09:00)
[2018-01-26] MEDS: LACTULOSE SYRUP 20 GM/30 ML CUP PO SCH ×4 (09:00→21:00)
[2018-01-26] MEDS: LANSOPRAZOLE SOLUTAB 30 MG TAB NG SCH (09:00)
[2018-01-26] MEDS: SODIUM CHLORIDE 0.9% FLUSH 10 ML FLUSH IV FLUSH SCH ×2 (09:00→21:11)
[2018-01-26] MEDS: AMIODARONE 200 MG TAB PO SCH (09:00)
[2018-01-26] MEDS: POTASSIUM BICARBONATE 25 MEQ EFFERVESCENT TAB NG SCH (09:00)
[2018-01-26] MEDS: BETHANECHOL CHL 25 MG TAB PO SCH (09:00)
[2018-01-26] MEDS: DIGOXIN SOLUTION 0.125 MG/2.5 ML CUP PO SCH (09:00)
[2018-01-26] MEDS: INSULIN ASPART SUPPLEMENTAL SCALE SQ SCH ×4 (10:27→21:00)
[2018-01-26] MEDS: INSULIN DETEMIR 100 UNITS/ML VIAL SQ SCH ×2 (10:28→21:13)
--- NOTE | 2018-01-26 11:20 | HHI.HCPN ---
Reason for visit a. To assist with evaluation and management of symptoms including: Encephalopathy, dyspnea, dysphasia, agitation, pain b. To assist medical decision maker(s) with: better understanding of current medical conditions; weighing benefits/burdens of medical treatment options; making medical treatment decisions. . Subjective/Interval History Patient is a 72-year-old male with CHF, atrial tachycardia and atrial fibrillation who was admitted with tachyarrhythmia. Patient underwent cardiac ablation; he was intubated postoperatively secondary to respiratory failure. Status post PEA arrest and prolonged ICU course. Follow up visit for symptom management of encephalopathy, dyspnea, agitation and dysphasia as well as clarification of medical treatment goals. Patient seen and assessed in room 1432; RN (ann-marie) was also present. Patient remains encephalopathic with a questionable anoxic brain injury. [place] to self only. He does not understand the circumstances of his hospitalization and asked , "why are you while doing this to me." Patient showing know s/s acute distress on examination; he has no complaints. 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 Wound culture + Henrietta albicans. Per nursing report, patient experiencing moderate-severe pain intermittently as evidenced by verbal complaints, grimacing and moaning; he has described pain as hot or burning. PRN Percocet is available every 4 hours as needed, but the patient is refusing most PO medications. 24 hour PRN dosing = 2 tablets 2. Having ongoing agitation requiring non-violent restraints. He pulled out his IV again yesterday 01/25/18. Started on Seroquel 25mg PO BID on 01/22/18. Psychiatry was consulted for recommendations for symptom management. Oral intake has been inadequate; refusing medication. Over the course of this hospitalization, documented EMR weight loss is 28.3 kg. Patient will require a PEG tube if goals remain aggressive, although he may pull it out. Gastroenterology was consulted for EGD with PEG tube, but the patient's HCP did not sign consents over the weekend. . Family/friend interactions See interval history . Advance Directives Living Will: Never completed Health Care Surrogate: Never completed Durable Power of Knot Tying Operator: Never completed Objective Vital Signs Date Time Temp Pulse Resp B/P (MAP) Pulse Ox O2 Delivery O2 Flow Rate FiO2 01/26/18 07:40 98.5 85 20 137/76 (96) 95 01/26/18 04:00 110 01/26/18 04:00 98.2 119 20 106/66 (79) 96 01/26/18 00:00 100 01/26/18 00:00 Room Air 01/26/18 00:00 97.8 92 20 132/65 (87) 94 01/25/18 21:40 Room Air 01/25/18 20:00 110 01/25/18 20:00 98.4 105 20 139/60 (86) 95 01/25/18 16:00 97.7 90 20 141/75 (97) 94 01/25/18 16:00 102 01/25/18 12:00 98.1 90 20 121/81 (94) 96 01/25/18 12:00 84 Intake & Output 01/26/18 01/26/18 07:00 19:00 # Voids 3 # Bowel Movements 2 Physical Exam CONSTITUTIONAL/GENERAL: This is a confused, elderly male patient in no acute distress. TUBES/LINES/DRAINS: Condom catheter SKIN: No jaundice, rashes, or lesions. Few areas of ecchymosis to upper extremities, as well as inner thighs. Dressing visible to sacrum and buttocks reported significant wounds beneath. Skin warm and dry. Generalized pallor. Feces on fingers and under fingernails. HEAD: Atraumatic. Normocephalic. EYES: Pupils equal and round and reactive. Extraocular motions intact. No scleral icterus. No injection or drainage. Fundi not examined. ENT: Hard of hearing. Nose without bleeding or purulent drainage. Poor dentition. Oral mucosa dry. NECK: Trachea midline. Supple, nontender. No palpable thyroid enlargement or nodularity. CARDIOVASCULAR: Irregular rate and rhythm. No murmur. No JVD. Peripheral pulses symmetric. RESPIRATORY/CHEST: Symmetric, unlabored respirations on 2L via NC. CTA. Breath sounds equal bilaterally. GASTROINTESTINAL: Abdomen soft, round/obese, non-tender, nondistended. No hepato -splenomegaly, or palpable masses. No guarding. Bowel sounds normoactive. GENITOURINARY: Without palpable bladder distension. Condom catheter MUSCULOSKELETAL: Extremities without clubbing, cyanosis, or edema. NEUROLOGICAL: Awake. Oriented to person only. Patient does not know where he is and has no insight into hospitalization. Does not answer all questions; speech at time is nonsensical. Does move all 4 extremities with generalized weakness. Moving all extremities 4 PSYCHIATRIC: Somewhat flat, lethargic, confused. Intermittently agitated. Difficult to assess given clinical condition. . Diagnostic Tests Laboratory Laboratory Tests Test 01/26/18 05:10 01/26/18 05:40 Blood Urea Nitrogen 18 MG/DL (7-18) Creatinine 1.37 MG/DL (0.60-1.30) Random Glucose 225 MG/DL (74-106) Calcium Level 7.5 MG/DL (8.5-10.1) Sodium Level 140 MEQ/L (136-145) Potassium Level 3.0 MEQ/L (3.5-5.1) Chloride Level 106 MEQ/L (98-107) Carbon Dioxide Level 23.7 MEQ/L (21.0-32.0) Anion Gap 10 MEQ/L (5-15) Estimat Glomerular Filtration Rate 51 ML/MIN (>89) White Blood Count 6.9 TH/MM3 (4.0-11.0) Red Blood Count 4.07 MIL/MM3 (4.50-5.90) Hemoglobin 10.9 GM/DL (13.0-17.0) Hematocrit 34.0 % (39.0-51.0) Mean Corpuscular Volume 83.5 FL (80.0-100.0) Mean Corpuscular Hemoglobin 26.9 PG (27.0-34.0) Mean Corpuscular Hemoglobin Concent 32.2 % (32.0-36.0) Red Cell Distribution Width 23.2 % (11.6-17.2) Platelet Count 286 TH/MM3 (150-450) Mean Platelet Volume 9.2 FL (7.0-11.0) Neutrophils (%) (Auto) 71.6 % (16.0-70.0) Lymphocytes (%) (Auto) 15.3 % (9.0-44.0) Monocytes (%) (Auto) 9.4 % (0.0-8.0) Eosinophils (%) (Auto) 3.3 % (0.0-4.0) Basophils (%) (Auto) 0.4 % (0.0-2.0) Neutrophils # (Auto) 4.9 TH/MM3 (1.8-7.7) Lymphocytes # (Auto) 1.1 TH/MM3 (1.0-4.8) Monocytes # (Auto) 0.6 TH/MM3 (0-0.9) Eosinophils # (Auto) 0.2 TH/MM3 (0-0.4) Basophils # (Auto) 0.0 TH/MM3 (0-0.2) CBC Comment DIFF FINAL Differential Comment Result Diagram: 01/26/18 0540 01/26/18 0510 Procedures 01/02 Extubated postprocedure 01/06 decompressive colonoscopy 01/07 reintubated during PEA arrest 01/12/18 extubated . Assessment and Plan Disease Oriented Problem List: (1) Acute on chronic systolic CHF (congestive heart failure) (2) CKD (chronic kidney disease) stage 3, GFR 30-59 ml/min (3) PAF (paroxysmal atrial fibrillation) (4) Hypothyroidism (5) Elevated troponin (6) Diabetes (7) Acute kidney injury superimposed on chronic kidney disease (8) Hypertension (9) Hyperlipidemia (10) Ileus Symptom Scale: (1) Dysphagia 0-10 Scale: Unable to quantify (2) Dyspnea 0-10 Scale: Unable to quantify (3) Encephalopathy 0-10 Scale: Unable to quantify (4) Agitation 0-10 Scale: Unable to quantify Pertinent Non-Medical Issues Psychosocial:Patient originally from [place], moved to [place] for shelter. Live-in caregiver has assisted him for about the past 5 years. She indicates he just before she started caring for him. She is not aware of any other family except for a cousin Alex [facility]. ex 's name is Olivia Otto. Retired, caregiver not certain what type of work he did prior to shelter. Spiritual: Scientology kianna, will probably want practice billing associate visits Legal:Patient is not currently able to make his own decisions due to confusion, medical conditions. Patient's hired caregiver, Corinna Powell, stated she would be willing to act in the role of healthcare proxy s/p accurints report that did not identify any family members who were willing to act in the role of health care proxy decision maker. Ethical issues impacting care: No ethical issues identified at this time. . Important Contacts Corinna Powell [phone] / [phone] . Prognosis This patient has had multiple recent hospitalizations for cardiac conditions with some respiratory complications. He has been intubated twice this admission. He also suffered an ileus. Due to advanced age and multiple chronic medical conditions he does remain at risk for ongoing complications and potential setbacks. He may require rehabilitation following this acute hospitalization. . Code Status: Full Code (By default) Plan * FULL CODE by default * Patient's hired caregiver, Coirnna Powell, stated she would be willing to act in the role of healthcare proxy s/p accurints report that did not identify any family members who were willing to act in the role of health care proxy decision maker. * Palliative care had tentative plans to meet with the patient's healthcare proxy on 01/23/18 but the HCP was a no-show. Multiples attempts were made to contact the HCP. Veronika Cedeno, Palliative Care SKILLS INSTRUCTOR, was able to speak to the HCP briefly via telephone and explained that she was uncomfortable making difficult medical treatment decisions for the patient she could opt out, but the Dawm/HCP stated she wanted to fulfil this role. * Discussed current medical treatment goals with RN (Ann-Marie) and Dr. Hodges. * SYMPTOMS: --Dyspnea: Patient reported with chronic dyspnea and orthopnea. He has had episodes of heart failure and atrial fibrillation contributing to this. Status post medical extubation 2 this admission. Concern for aspiration. Patient denies dyspnea. On Ceftin and PRN nebulizer treatments --Dysphagia: Oral intake has been inadequate; refusing medication. Over the course of this hospitalization, documented EMR weight loss is 28.3 kg. Patient will require a PEG tube if goals remain aggressive, although he may pull it out. Gastroenterology was consulted for EGD with PEG tube, but the patient's HCP did not sign consents over the weekend. --Encephalopathy: Status post PEA arrest 01/06 with ROSC after about 10 minutes. Reported he was cognitively sharp prior to admission per caregiver though prior H&P's do note at times poor historian. Caregiver reports he was paying his own bills prior to this admission. Concern for anoxic injury. --Agitation: Patient pulled put NGT as well as IV access, requiring nonviolent restraints overnight. Patient received Haldol 2 mg IM and was started on Seroquel 25 mg PO twice daily overnight. Psychiatry consulted for recommendations. --Pain: Patient having severe pain as evidenced by moaning and grimacing; patient is able to identify pain is secondary to wound on his buttocks. 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 Wound culture + Henrietta albicans. Pain is exacerbated by repositioning and care. Recommendations to position patient off buttocks as much and utilize PRN percocet prior to care. Palliative care will continue to follow during hospital course as condition evolves, to assist patient/decision-maker with understanding of medical conditions, weighing benefits/burdens of treatment options, for clarification of goals of treatment. Additionally will assist with any symptoms of palliative concern. . Attestation To help prompt me to consider important information that might be impacting today's encounter and assessment, information from prior notes written by myself or my colleagues may have been "brought forward" into today's note. My signature on this note, however, is an attestation that I personally performed the exam, history, and/or decision-making noted today, and, unless otherwise indicated, the interactions with patient, family, and staff as well as the review of records all occurred today. I also attest that the listed assessment and stated plan reflect my best clinical judgment today based on the combination of historical information, prior notes, and today's exam/ interactions. When time spent is documented, it refers only to time spent today by the signer, or if indicated, combined time spent today by collaborating physician/nurse practitioner. Sadie Lyon Jan 26, 2018 11:20
[2018-01-26] MEDS: SODIUM HYPOCHLORITE 0.125% 500 ML BTL TOPICAL SCH (12:24)
[2018-01-26] MEDS: COLLAGENASE OINT 30 GM TUBE TOPICAL SCH (12:24)
--- NOTE | 2018-01-26 14:56 | HHI.GIFU ---
Subjective Remarks Pt resting in bed, in restraints. Confused. "I don't know what happened." (Jyotsna Garsia) Objective Vitals I&O Vital Signs Date Time Temp Pulse Resp B/P (MAP) Pulse Ox O2 Delivery O2 Flow Rate FiO2 01/26/18 11:55 98.5 81 20 119/66 (83) 95 01/26/18 08:00 99 01/26/18 08:00 Room Air 01/26/18 07:40 98.5 85 20 137/76 (96) 95 01/26/18 04:00 110 01/26/18 04:00 98.2 119 20 106/66 (79) 96 01/26/18 00:00 100 01/26/18 00:00 Room Air 01/26/18 00:00 97.8 92 20 132/65 (87) 94 01/25/18 21:40 Room Air 01/25/18 20:00 110 01/25/18 20:00 98.4 105 20 139/60 (86) 95 01/25/18 16:00 97.7 90 20 141/75 (97) 94 01/25/18 16:00 102 I/O 01/25/18 01/25/18 01/25/18 01/26/18 01/26/18 01/26/18 07:00 15:00 23:00 07:00 15:00 23:00 Intake Total 2645 ml 250 ml 1890 ml Balance 2645 ml 250 ml 1890 ml Intake Oral 120 ml 240 ml IV Total 2525 ml 250 ml 1650 ml # Voids 2 1 3 # Bowel Movements 0 0 2 Laboratory Laboratory Tests Test 01/26/18 05:10 01/26/18 05:40 Blood Urea Nitrogen 18 Creatinine 1.37 Random Glucose 225 Calcium Level 7.5 Sodium Level 140 Potassium Level 3.0 Chloride Level 106 Carbon Dioxide Level 23.7 Anion Gap 10 Estimat Glomerular Filtration Rate 51 White Blood Count 6.9 Red Blood Count 4.07 Hemoglobin 10.9 Hematocrit 34.0 Mean Corpuscular Volume 83.5 Mean Corpuscular Hemoglobin 26.9 Mean Corpuscular Hemoglobin Concent 32.2 Red Cell Distribution Width 23.2 Platelet Count 286 Mean Platelet Volume 9.2 Neutrophils (%) (Auto) 71.6 Lymphocytes (%) (Auto) 15.3 Monocytes (%) (Auto) 9.4 Eosinophils (%) (Auto) 3.3 Basophils (%) (Auto) 0.4 Neutrophils # (Auto) 4.9 Lymphocytes # (Auto) 1.1 Monocytes # (Auto) 0.6 Eosinophils # (Auto) 0.2 Basophils # (Auto) 0.0 CBC Comment DIFF FINAL Differential Comment Date/Time Source Procedure Growth Status 01/12/18 10:15 Sputum Endotracheal Gram Stain - Final Complete 01/12/18 10:15 Sputum Culture - Final Escherichia Coli Complete 01/20/18 09:55 Wound Buttock Gram Stain - Final Complete 01/20/18 09:55 Wound Culture - Final Henrietta Albicans Complete Imaging Last Impressions Chest X-Ray 01/14/18 0000 Signed Impressions: Service Date/Time: Sunday, January 14, 2018 07:34 - CONCLUSION: Increasing interstitial edema otherwise stable. Tee Jimenes MD FACR Abdomen X-Ray 01/07/18 0600 Signed Impressions: Service Date/Time: Sunday, January 07, 2018 04:29 - CONCLUSION: Possible slight interval improvement in gaseous distention of bowel Lito Adkins MD Abdomen/Pelvis CT 01/04/18 0000 Signed Impressions: Service Date/Time: Thursday, January 04, 2018 10:34 - CONCLUSION: 1. Abnormal bowel gas pattern most characteristic of an ileus. There is a small amount of ascitic fluid in right paracolic gutter and pelvis. 2. Bilateral pleural effusions right greater than left with consolidation in both posterior lung bases. 3. Nasogastric tube in place with the tip in the proximal duodenum. 4. Mild diverticulosis. John Neville MD Renal Ultrasound 01/01/18 0000 Signed Impressions: Service Date/Time: December 18:16 - CONCLUSION: 1. No evidence of hydronephrosis. 2. No new or significant changes compared to the prior exam 3. 2.2 cm right renal cyst. Luiz Frey MD Physical Exam HEENT: Normocephalic; atraumatic CHEST: Even/unlabored CARDIAC: RRR ABDOMEN: soft,obese, bowel sounds active SKIN: Normal; no rash; no jaundice. BEHAVIORAL MODIFICATION ASSISTANT: Confused, in soft wrist restraints (Jyotsna Garsia) Assessment and Plan Plan ASSESSMENT - Inadequate PO intake and refusing to take meds Nutrition recommends enteral feedings if goals remain aggressive Pt has a hired line technician who makes medical decisions would like to proceed with PEG tube - Previously seen by our service for decompressive colonoscopy January 07 per HPI - S/P PEA- now extubated on medical floor - Confused- in soft wrist restraints- unable to provide history (01/25) No global director air and climate change night. Per RN pt remains confused, he ripped out his IV earlier. Senior Mechanical Technician has not come to sign consent for PEG yet. Eliquis on hold 01/26/18 pt confused. PEG tube placement cancelled, no consent obtained psych consult pending PLAN - EGD with PEG when consent obtained - will need Ancef civil engineering draftsperson - Hold Eliquis - TF recommendations per speech therapy - supportive care - notify GI when consent obtained Pt has been seen and examined by myself and Dr. Hillman and this note is written on his behalf (Jyotsna Garsia) Physician Comments Patient seen and examined Agree with above Continue with current supportive care Monitor lab EGD with PEG placement once consent is obtained (Juan Hillman MD) Jyotsna Garsia Jan 26, 2018 14:56 Juan Hillman MD Jan 26, 2018 18:58
--- NOTE | 2018-01-26 15:24 | HHI.NPPN ---
Subjective History of Present Illness 72 year old male with Chf/Atrial tachycardia/Afib admitted with Tachyarrhythmia Additional Remarks Patient remains confused. Objective Data Data Vital Signs Date Time Temp Pulse Resp B/P (MAP) Pulse Ox O2 Delivery O2 Flow Rate FiO2 01/26/18 11:55 98.5 81 20 119/66 (83) 95 01/26/18 08:00 99 01/26/18 08:00 Room Air 01/26/18 07:40 98.5 85 20 137/76 (96) 95 01/26/18 04:00 110 01/26/18 04:00 98.2 119 20 106/66 (79) 96 01/26/18 00:00 100 01/26/18 00:00 Room Air 01/26/18 00:00 97.8 92 20 132/65 (87) 94 01/25/18 21:40 Room Air 01/25/18 20:00 110 01/25/18 20:00 98.4 105 20 139/60 (86) 95 01/25/18 16:00 97.7 90 20 141/75 (97) 94 01/25/18 16:00 102 -: 01/26/18 0540 01/26/18 0510 Physical Exam General Appearance: Well Developed, Well Nourished Neck Neck Exam: Neck Supple Pulmonary Resp Exam: No Distress, Crackles, Rhonchi, Decreased Bases, Diminished Breath Sounds Cardiology CV Exam: Arrhythmia Gastrointestinal/Abdomen GI Exam: Soft, Non-Tender, Bowel Sounds Present Extremeties Extremities Exam: Trace Edema Neurologic Neuro Exam: Alert Assessment/Plan Problem List: (1) Acute renal failure ICD Codes: N17.9 - Acute kidney failure, unspecified Status: Acute Plan: Patient had cardiogenic shock and low blood pressure contributing, and cardiorenal syndrome He has underlying tachyarrhythmia Atrial fibrillation/atrial tachycardia s/p cardiac Ablation Stable renal function Remains confused and pulled IV out. Monitor renal panel periodically. Labs stable EGD and PEG placement (2) Chronic kidney disease, stage III (moderate) ICD Codes: N18.3 - Chronic kidney disease, stage III (moderate) Status: Acute Plan: Baseline care around 1.7 (3) Congestive heart failure ICD Codes: I50.9 - Heart failure, unspecified Status: Acute Plan: He is in cardiogenic shock low blood pressure causing the cardiorenal syndrome (4) PAF (paroxysmal atrial fibrillation) ICD Codes: I48.0 - Paroxysmal atrial fibrillation Plan: Cardiology was following (5) Diabetes ICD Codes: E11.9 - Diabetes Status: Chronic Plan: Monitor blood glucose (6) Acute on chronic systolic CHF (congestive heart failure) ICD Codes: I50.23 - Acute on chronic systolic (congestive) heart failure Problem Qualifiers (1) Acute renal failure: Qualified Codes: N17.8 - Other acute kidney failure (2) Congestive heart failure: Qualified Codes: I50.9 - Heart failure, unspecified Susan Solo MD Jan 26, 2018 15:24
[2018-01-26] MEDS ORDERED: POTASSIUM CHLOR 20 MEQ PREMIX 100 ML IV ONE (15:30)
--- NOTE | 2018-01-26 17:49 | HHI.PR ---
Subjective Remarks 72-year-old gentleman with multiple medical problems including morbid obesity, obstructive sleep apnea, diabetes mellitus, and chronic kidney insufficiency, underwent cardiac ablation for uncontrolled A. fib. Patient was intubated for procedure, and is transferred to ICU postprocedure for weaning of the mechanical ventilation due to increased abdominal girth. status post Colonoscopy for Decompression, status post PEA arrest, was on vasopressors, 01/23: stable in his bedroom, his Caregiver will come today to discuss with assistive technology specialist if she wants Hospice versus PEG tube placement discussed with nurse. 01/24: discussed with his Caregiver Miss Corinna Powell and she wants to continue with PEG tube placement, she is been delayed due to that was not possible to come yesterday for Palliative care meeting was asked for GI and Interventional Radiology for PEG tube placement. patient continue encephalopathic. 01/25: Seen in his bedroom, discussed with nurse, due to Inadequate oral intake, asked for GI specialist for PEG tube placement, recommended PEG tube for Tomorrow, but not yet consent signed. held Annabel. 01/26: Stable in his bedroom, not yet signed consent for PEG tube placement, electrolyte derangement replaced by Nephrology specialist, no nausea, vomit or diarrhea discussed with business employment specialist asked for Psychiatry specialist. Objective Vital Signs Date Time Temp Pulse Resp B/P (MAP) Pulse Ox O2 Delivery O2 Flow Rate FiO2 01/26/18 15:35 98.7 96 20 105/70 (82) 96 01/26/18 11:55 98.5 81 20 119/66 (83) 95 01/26/18 08:00 99 01/26/18 08:00 Room Air 01/26/18 07:40 98.5 85 20 137/76 (96) 95 01/26/18 04:00 110 01/26/18 04:00 98.2 119 20 106/66 (79) 96 01/26/18 00:00 100 01/26/18 00:00 Room Air 01/26/18 00:00 97.8 92 20 132/65 (87) 94 01/25/18 21:40 Room Air 01/25/18 20:00 110 01/25/18 20:00 98.4 105 20 139/60 (86) 95 I/O 01/25/18 01/25/18 01/25/18 01/26/18 01/26/1823/18 07:00 15:00 23:00 07:00 15:00 23:00 Intake Total 2645 ml 250 ml 1890 ml Balance 2645 ml 250 ml 1890 ml Intake Oral 120 ml 240 ml IV Total 2525 ml 250 ml 1650 ml # Voids 2 1 3 # Bowel Movements 0 0 2 Result Diagram: 01/26/18 0540 01/26/18 0510 Imaging Last Impressions Chest X-Ray 01/14/18 0000 Signed Impressions: Service Date/Time: Sunday, January 14, 2018 07:34 - CONCLUSION: Increasing interstitial edema otherwise stable. Tee Jimenes MD FACR Abdomen X-Ray 01/07/18 0600 Signed Impressions: Service Date/Time: Sunday, January 07, 2018 04:29 - CONCLUSION: Possible slight interval improvement in gaseous distention of bowel Lito Adkins MD Abdomen/Pelvis CT 01/04/18 0000 Signed Impressions: Service Date/Time: Thursday, January 04, 2018 10:34 - CONCLUSION: 1. Abnormal bowel gas pattern most characteristic of an ileus. There is a small amount of ascitic fluid in right paracolic gutter and pelvis. 2. Bilateral pleural effusions right greater than left with consolidation in both posterior lung bases. 3. Nasogastric tube in place with the tip in the proximal duodenum. 4. Mild diverticulosis. John Neville MD Renal Ultrasound 01/01/18 0000 Signed Impressions: Service Date/Time: December 18:16 - CONCLUSION: 1. No evidence of hydronephrosis. 2. No new or significant changes compared to the prior exam 3. 2.2 cm right renal cyst. Luiz Frey MD Procedures Endotracheal intubation and extubation Colonoscopy. Cardiac cath. Other Results Laboratory Tests Test 12/28/17 05:15 12/28/17 23:38 12/29/17 07:28 12/30/17 12:15 Total Creatine Kinase 107 U/L Creatine Kinase MB 2.8 NG/ML B-Type Natriuretic Peptide 1350 PG/ML Troponin I 0.07 NG/ML Thyroid Stimulating Hormone 3rd Gen 3.060 uIU/ML Nasal Screen MRSA (PCR) MRSA NOT DETECTED Test 01/01/18 04:10 01/01/18 11:10 01/04/18 04:14 01/09/18 17:50 Prothrombin Time 13.4 SEC Prothromb Time International Ratio 1.3 RATIO Activated Partial Thromboplast Time 28.4 SEC Urine Eosinophils RARE /HPF Urine Random Creatinine 164.1 MG/DL Urine Random Sodium 12 MEQ/L Amylase Level 13 U/L Lipase 35 U/L Protein Corrected Calcium 7.7 MG/DL Test 01/12/18 11:12 01/13/18 03:50 01/14/18 16:15 01/16/18 04:00 Blood Gas Ventilator Setting CPAP7/5 Blood Gas Inspired Oxygen 35 % Phosphorus Level 2.3 MG/DL Blood Gas Puncture Site LT RADIAL Blood Gas Patient Temperature 98.6 Blood Gas HCO3 26 mmol/L Blood Gas Base Excess 3.1 mmol/L Blood Gas Oxygen Saturation 94 % Arterial Blood pH 7.50 Arterial Blood Partial Pressure CO2 34 mmHg Arterial Blood Partial Pressure O2 73 mmHG Arterial Blood Oxygen Content 18.1 Vol % Arterial Blood Carboxyhemoglobin 1.3 % Arterial Blood Methemoglobin 0.6 % Blood Gas Hemoglobin 13.7 G/DL Oxygen Delivery Device NASAL CANNULA Blood Gas Liter Flow 2 L/M Blood Urea Nitrogen 43 MG/DL Creatinine 1.90 MG/DL Random Glucose 278 MG/DL Total Protein 6.1 GM/DL Albumin 2.1 GM/DL Calcium Level 8.4 MG/DL Magnesium Level 1.9 MG/DL Alkaline Phosphatase 119 U/L Aspartate Amino Transf (AST/SGOT) 93 U/L Alanine Aminotransferase (ALT/SGPT) 104 U/L Total Bilirubin 0.6 MG/DL Sodium Level 149 MEQ/L Potassium Level 3.6 MEQ/L Chloride Level 111 MEQ/L Carbon Dioxide Level 32.7 MEQ/L Test 01/21/18 06:30 01/23/18 04:21 01/26/18 05:10 01/26/18 05:40 Digoxin Level 1.1 NG/ML Hematology Comments Blood Urea Nitrogen 18 MG/DL Creatinine 1.37 MG/DL Random Glucose 225 MG/DL Calcium Level 7.5 MG/DL Sodium Level 140 MEQ/L Potassium Level 3.0 MEQ/L Chloride Level 106 MEQ/L Carbon Dioxide Level 23.7 MEQ/L Anion Gap 10 MEQ/L Estimat Glomerular Filtration Rate 51 ML/MIN White Blood Count 6.9 TH/MM3 Red Blood Count 4.07 MIL/MM3 Hemoglobin 10.9 GM/DL Hematocrit 34.0 % Mean Corpuscular Volume 83.5 FL Mean Corpuscular Hemoglobin 26.9 PG Mean Corpuscular Hemoglobin Concent 32.2 % Red Cell Distribution Width 23.2 % Platelet Count 286 TH/MM3 Mean Platelet Volume 9.2 FL Neutrophils (%) (Auto) 71.6 % Lymphocytes (%) (Auto) 15.3 % Monocytes (%) (Auto) 9.4 % Eosinophils (%) (Auto) 3.3 % Basophils (%) (Auto) 0.4 % Neutrophils # (Auto) 4.9 TH/MM3 Lymphocytes # (Auto) 1.1 TH/MM3 Monocytes # (Auto) 0.6 TH/MM3 Eosinophils # (Auto) 0.2 TH/MM3 Basophils # (Auto) 0.0 TH/MM3 CBC Comment DIFF FINAL Differential Comment Objective Remarks GENERAL: No acute distress. CARDIOVASCULAR: Normal rate and regular rhythm without murmurs, gallops, or rubs. RESPIRATORY: Upper lung hernández are clear to auscultation. GASTROINTESTINAL: soft, non tender. NEUROLOGICAL: Awake, alert to self only. Very confused. Medications and IVs Current Medications Medications (Trade) Dose Ordered Sig/Az Route Start Time Stop Time Status Last Admin (D50w (Vial) Inj) 50 ml UNSCH PRN IV PUSH 12/28/17 07:00 01/04/18 06:48 (Glucagon Inj) 1 mg UNSCH PRN OTHER 12/28/17 07:00 (NS Flush) 2 ml UNSCH PRN IV FLUSH 12/28/17 07:00 01/07/18 05:32 (NS Flush) 2 ml BID IV FLUSH 12/28/17 09:00 01/23/18 08:23 (Tylenol) 650 mg Q6H PRN PO 12/28/17 07:00 (Delaney-Colace) 1 tab BID PO 12/28/17 09:00 01/25/18 21:41 (Senokot) 17.2 mg Q12H PRN PO 12/28/17 07:00 (Dulcolax Supp) 10 mg DAILY PRN RECTAL 12/28/17 07:00 (Cordarone) 200 mg DAILY PO 12/28/17 09:00 01/23/18 08:21 (Lipitor) 40 mg HS PO 12/28/17 21:00 01/25/18 21:42 (Cardura) 4 mg HS PO 12/28/17 21:00 01/25/18 21:42 (Synthroid) 125 mcg DAILY@0600 PO 12/28/17 07:00 01/24/18 04:57 (Zoloft) 50 mg BID PO 12/28/17 09:00 01/25/18 21:42 (Mirapex) 0.5 mg HS PO 12/28/17 21:00 01/25/18 21:40 (Percocet 5-325 Mg) 1 tab Q4H PRN PO 12/31/17 19:30 01/14/18 09:14 (Percocet 5-325 Mg) 2 tab Q4H PRN PO 12/31/17 19:30 01/25/18 21:41 (Atropine Inj) 0.5 mg UNSCH PRN IV PUSH 12/31/17 19:30 (Zofran Inj) 4 mg Q4H PRN IV PUSH 12/31/17 19:30 01/06/18 22:58 (Zyloprim) 100 mg DAILY PO 01/02/18 09:00 01/21/18 08:25 (Urecholine) 25 mg DAILY PO 01/02/18 09:00 01/21/18 08:25 Patient Own Medication PT OWN MED: NIACINAM... DAILY PO 01/02/18 09:00 Future Hold (Chloraseptic Mulberry) 2 spray Q2H PRN OROPHARYNG 01/01/18 12:00 (Miralax) 17 gm BID PO 01/02/18 09:00 01/21/18 08:26 (Lactulose Liq) 30 ml QID PO 01/02/18 09:00 01/25/18 21:42 (Reglan Inj) 5 mg Q8HR IV PUSH 01/02/18 14:00 01/26/18 16:36 (Erythromycin Ec) 250 mg Q8HR PO 01/05/18 16:00 01/25/18 21:43 (Eliquis) 2.5 mg BID PO 01/07/18 09:00 Future Hold 01/23/18 22:30 (Levemir Inj) 4 units BID SQ 01/06/18 21:00 01/26/18 10:28 (NovoLOG SUPPLEMENTAL SCALE) 1 ACHS SQ 01/06/18 21:00 01/26/18 13:43 (Peridex 0.12% Liq) 15 ml BID@08,20 MT 01/07/18 08:00 01/21/18 20:15 Propofol 100 ml @ 3.261 mls/ hr TITRATE PRN IV 01/07/18 00:15 01/11/18 23:50 (Effer-K Eff) 25 meq BID NG 01/08/18 21:00 01/21/18 08:25 (Duoneb Neb) 1 ampule Q2HR NEB PRN NEB 01/14/18 16:00 01/18/18 16:36 Esmolol HCl/ Sodium Chloride 250 ml @ 28.41 mls/ hr TITRATE PRN IV 01/14/18 17:30 (Lanoxin Liq) 0.125 mg DAILY PO 01/15/18 16:00 01/24/18 10:15 (Prevacid Odt) 30 mg DAILY NG 01/16/18 09:00 01/21/18 08:25 (Ceftin) 500 mg Q12HR PO 01/18/18 09:00 01/25/18 21:42 (Lasix) 40 mg DAILY NG 01/19/18 09:00 Future Hold 01/21/18 08:25 (Free Water) 200 ml Q6HR G-TUBE 01/18/18 18:00 01/23/18 05:49 (Dakin'S 0.125% Soln) 500 ml DAILY TOPICAL 01/20/18 09:00 01/26/18 12:24 (Santyl Oint) 1 applic DAILY TOPICAL 01/20/18 09:00 01/26/18 12:24 (Xylocaine 5% Oint) 1 applic Q8H PRN TOPICAL 01/19/18 15:15 (Cardizem) 60 mg Q6H PO 01/21/18 21:00 01/26/18 04:04 Dextrose/Sodium Chloride 1,000 ml @ 100 mls/hr Q10H IV 01/21/18 15:15 01/25/18 21:45 (SEROquel) 25 mg BID PO 01/22/18 21:00 01/25/18 21:42 Cefazolin Sodium/ Dextrose 50 ml @ 100 mls/hr [employer] IV 01/24/18 16:45 01/27/18 16:44 A/P Assessment and Plan (1) Acute on chronic systolic CHF (congestive heart failure) ICD Code: I50.23 - Acute on chronic systolic (congestive) heart failure (2) PAF (paroxysmal atrial fibrillation) ICD Code: I48.0 - Paroxysmal atrial fibrillation (3) Acute kidney injury superimposed on chronic kidney disease ICD Code: N17.9 - Acute kidney failure, unspecified; N18.9 - Chronic kidney disease, unspecified (4) Hypothyroidism ICD Code: E03.9 - Hypothyroidism Status: Acute (5) Diabetes ICD Code: E11.9 - Diabetes Status: Chronic (6) Hyperkalemia ICD Code: E87.5 - Hyperkalemia Status: Acute This is a pleasant 72 y/o male with Atrial Fibrillation with RVR, underwent Cardiac Ablation, developed respiratory failure and was postoperatively intubated, was in Intensive care unit, Status post PEA arrest. Concern for aspiration event. Patient was extubated. Prolonged ICU course. He has been downgraded to the floor. Patient with profound encephalopathy, confused, ? anoxic injury. Not cooperating with treatment. not eating or drinking enough, may need PEG tube placement, palliative care will get a meeting with caregiver today. Acute hypoxic and hypercarbic respiratory failure MUNA -nocturnal CPAP 8 cm H2O Moderate right pleural effusion Extubated 01/02. reintubated 01/07 during PEA arrest, extubated again 01/12/18 wean fio2 for goal spo2 > 90% Nebs as needed EzPAP, Acapella Chronic diastolic heart failure, with exacerbation ejection fraction 45-50% recurrent atrial fibrillation with rapid ventricular response s/p PEA arrest 01/07 Status post ablation for A. fib/flutter Hypertension Dyslipidemia Continue amiodarone 200 mg by mouth daily Received IV digoxin and IV metoprolol 01/14 digoxin 0.125 mg p.o. daily Increase Cardizem 60 mg p.o. every 6 hours. Holding diltiazem 240 mg p.o. daily/ home medication Continue atorvastatin 40 mg p.o. daily for his lipidemia At home on fish oil/cholecalciferol 1200/1000 1 tablet twice daily/home medication Holding ramipril 5 mg p.o. daily for hypertension with acute kidney injury Dr. Ramirez evaluated no further plans at this time Encephalopathy,? Anoxic injury: Depression/anxiety Chronic narcotic use continue sertraline 50 mg twice daily/home medication for depression Continue pramipexole 0.5 mg p.o. daily for extrapyramidal side effects Currently holding buspirone 5 mg 3 times daily anxiety On oxycodone/acetaminophen 5/325 1 - 2 tablets every 4 hours as needed pain PT/OT/speech He remains encephalopathic Gastroesophageal reflux disease Elevated transaminases Ileus Sigmoid diverticulosis Internal/external hemorrhoids Advance diet per speech therapy recommendations. Not tolerating enough p.o. nutrition yet. Continue NGT. If no improvement, will need to discuss with family regarding permanent tube feeding. Docusate sodium/senna 1 tablet twice daily for bowel regimen with polyethylene glycol 17 g twice daily and lactulose 30 cc 4 times daily Follow transaminases intermittently is likely congestion. Further workup and On metoclopramide 5 mg IV every 8 hours and erythromycin [address] abdomen/pelvis revealed dilated small and large bowel. Colonoscopy by Dr. Bella/revealed sigmoid diverticulosis. Decompression of colon. Internal and external hemorrhoids. Asked again for GI specialist evaluation for probable PEG tube placement for today but procedure cancelled due to that there's no next of kin to sign consent asked for Dietitian for TPN. BPH/overflow Continue doxazosin 4 mg daily and bethanechol 25 mg daily Diabetes mellitus Hypothyroidism Low testosterone Currently on insulin detemir 4 units twice daily with NovoLog sliding scale insulin/low regimen before meals at bedtime At home on insulin glargine 12 units twice daily with sliding scale insulin Continue levothyroxine 125 mcg p.o. daily. TSH 3.06 Holding testosterone Even some uncontrolled blood sugar the patient is not eating will wait for PEG tube placement. Acute kidney injury likely secondary to cardiorenal syndrome Renal cyst right 2.2 cm Followed by nephrology. Monitor urine output Accurate I's and O's. stable Renal ultrasound with no hydronephrosis. Right renal cyst 2.2 cm. Rare eosinophils urine. Chronic apixaban use Normocytic normochromic anemia Currently renally dose of 2.5 mg twice daily. Monitor CBC daily. Follow trends Debility: - Secondary to comorbid conditions above. Patient will need SNF placement. Continue rehab efforts. Overall Poor short term prognosis. Prophylaxis -GI -Lansoprazole -DVT -SCD/apixaban Discussed with nurse miss Jacobsen no new issues, awaiting for Caregiver to sign consent. Discharge Planning awaiting final by Palliative care probable on Friday today the Caregiver won't be able to come during the discharge Hours Martin Hays MD Jan 26, 2018 17:49
[2018-01-26] MEDS: DOXAZOSIN MESYLATE 4 MG TAB PO SCH (21:11)
[2018-01-26] MEDS: PRAMIPEXOLE DIHYDROCHLORIDE 0.25 MG TAB PO SCH (21:11)
[2018-01-26] MEDS: ATORVASTATIN 40 MG TAB PO SCH (21:12)
[2018-01-27] VITALS (10 sets, daily range): BP systolic 100–153; BP diastolic 51–73; PULSE 95–119; RESP 18–21; TEMP 97.6–98.2; O2SAT 92–100
[2018-01-27] MEDS: DEXTROSE 5%-NACL 0.225% INJ 1,000 ML IV SCH ×3 (02:08→21:15)
[2018-01-27] MEDS: oxyCODONE/ACETAMINOPHEN 5 MG/325 MG TAB PO PRN ×5 (02:08→22:17)
[2018-01-27] MEDS: DILTIAZEM HCL 30 MG TAB PO SCH ×4 (02:08→21:44)
[2018-01-27] MEDS: FREE WATER G-TUBE SCH ×3 (04:08→17:47)
[2018-01-27] MEDS: LEVOTHYROXINE SODIUM 125 MCG TAB PO SCH (06:43)
[2018-01-27] MEDS: ERYTHROMYCIN EC 250 MG TABEC PO SCH ×3 (06:43→22:00)
[2018-01-27] MEDS: METOCLOPRAMIDE HCL 10 MG/2 ML VIAL IV PUSH SCH ×3 (06:44→21:47)
[2018-01-27] MEDS: CHLORHEXIDINE 0.12% (ORAL KIT) 15 ML CUP MT SCH ×2 (08:00→20:00)
[2018-01-27] MEDS: COLLAGENASE OINT 30 GM TUBE TOPICAL SCH (09:00)
[2018-01-27] MEDS ORDERED: HALOPERIDOL LACTATE 5 MG/ML AMP IM ONE (09:45)
[2018-01-27] MEDS: INSULIN ASPART SUPPLEMENTAL SCALE SQ SCH ×4 (09:52→21:00)
[2018-01-27] MEDS: INSULIN DETEMIR 100 UNITS/ML VIAL SQ SCH ×2 (09:53→21:00)
[2018-01-27] MEDS: LACTULOSE SYRUP 20 GM/30 ML CUP PO SCH ×4 (09:54→21:00)
[2018-01-27] MEDS: LANSOPRAZOLE SOLUTAB 30 MG TAB NG SCH (09:55)
[2018-01-27] MEDS: QUEtiapine FUMARATE 25 MG TAB PO SCH ×3 (09:55→21:45)
[2018-01-27] MEDS: CEFUROXIME AXETIL 500 MG TAB PO SCH ×3 (09:55→21:45)
[2018-01-27] MEDS: DOCUSATE SODIUM 50 MG/SENNA 8.6 MG TAB PO SCH ×3 (09:55→21:45)
[2018-01-27] MEDS: POLYETHYLENE GLYCOL 17 GM PKG PO SCH ×2 (09:55→21:00)
[2018-01-27] MEDS: SERTRALINE HCL 50 MG TAB PO SCH ×2 (09:55→21:46)
[2018-01-27] MEDS: ALLOPURINOL 100 MG TAB PO SCH (09:55)
[2018-01-27] MEDS: SODIUM CHLORIDE 0.9% FLUSH 10 ML FLUSH IV FLUSH SCH ×2 (09:56→21:00)
[2018-01-27] MEDS: AMIODARONE 200 MG TAB PO SCH (09:56)
[2018-01-27] MEDS: BETHANECHOL CHL 25 MG TAB PO SCH (09:56)
[2018-01-27] MEDS: SODIUM HYPOCHLORITE 0.125% 500 ML BTL TOPICAL SCH (09:57)
--- NOTE | 2018-01-27 09:58 | PD.PSY.CON ---
Provisional Diagnosis Admission Date Dec 28, 2017 at 06:49 [place] I. Delirium due to another underlying medical condition vs multiple etiologies [place] II. Deferred History of Present Illness Service Psychiatry Consult Requested By Medicine Reason for Consult Delirium/agitation Primary Care Physician Julian Hartman MD HPI The patient is a 72 year-old man, single, domiciled alone in [facility] in [facility], with psychiatric history of anxiety and depression, no prepsychotic hospitalizations, no previous suicide attempts, no use of alcohol or illegal drugs, he has been treated with Zoloft 50 mg and BuSpar 20 mg 3 times daily, with medical history of hypothyroidism, CHF, atrial tachycardia and atrial fibrillation who was admitted with tachyarrhythmia. Patient underwent cardiac ablation; he was intubated postoperatively secondary to respiratory failure. Status post PEA arrest and prolonged ICU course. 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 Wound culture + Henrietta albicans. She was consulted to psychiatry to manage agitation. Chart was reviewed. Collateral information from caregiver José Miguel Powell, [phone], was obtained. On psychiatric evaluation the patient is found restrained in 2 points. Patient is calm, superficially cooperative, diffusely confused, with periodic alternation of lucidity. Patient reports feeling better, denies distress, denies pain at the moment. The patient knows that he is at [facility], but he does not know the date, he does not know who is the health information internship just minutes later patient started to say that he is [place]. He denies suicidal and homicidal ideation, he denies visual and auditory hallucinations. No acute agitation, behavioral dysregulation or aggressive behavior at this moment. The nurse in charge reports that the patient has been mostly okay, with no behavioral problems. Review of Systems ROS Limitations: Altered Mental Status Psychiatric: COMPLAINS OF: Agitation Past Family Social History Coded Allergies: penicillin G (Unverified Allergy, Severe, Hives, 12/28/17) Active Scripts Insulin Glargine Inj (Lantus Inj) 1,000 Unit/10 Ml Vial, 12 UNITS SQ BID for Blood Sugar Management for 30 Days, VIAL 0 Refills Prov:Fina Dunne DO 12/08/17 Diltiazem CD 24 HR (Diltiazem CD 24 HR) 240 Mg Caper, 240 MG PO DAILY for Afib, #30 CAP Prov:Fina Dunne DO 12/08/17 Amiodarone (Amiodarone) 200 Mg Tab, 200 MG PO DAILY for Regulate Heart Beat, # 30 TAB 0 Refills Prov:Selam Kurtz 10/23/17 Apixaban (Eliquis) 5 Mg Tab, 5 MG PO BID for atrial fibrillation, #30 TAB 0 Refills Prov:Martin Hays MD 08/12/17 Reported Medications Buspirone (Buspirone) 5 Mg Tab, PO TID for Anxiety, TAB 0 Refills 10/22/17 Niacinamide (Niacinamide) 500 Mg Tab, 500 MG PO DAILY for Nutritional Supplement , TAB 0 Refills 10/22/17 Insulin Aspart Inj (Novolog Inj) 1,000 Unit/10 Ml Vial, 0 SQ DIRECTED for Blood Sugar Management, #10 ML 0 Refills Sliding Scale as directed. 10/22/17 Hydrocodone-Acetaminophen (Hydrocodone-Acetaminophen) 7.5 Mg-325 Mg Tab, 1 TAB PO Q6H Y for PAIN, TAB 0 Refills 10/22/17 [Testosterone] (Testosterone) No Conflict Check 10/22/17 Fish Oil-Cholecalciferol (Fish Oil + D3) 1,200-1,000 Mg-Unit Cap, 1 CAP PO DAILY for Nutritional Supplement, #30 CAP 0 Refills 10/22/17 Pramipexole (Pramipexole) 0.5 Mg Tab, 0.5 MG PO HS for Parkinson Disease Mgmt, # 30 TAB 0 Refills 08/07/17 Atorvastatin (Atorvastatin) 40 Mg Tab, 40 MG PO HS for Cholesterol Management, # 30 TAB 0 Refills 08/07/17 Sertraline (Sertraline) 50 Mg Tab, 50 MG PO BID, #30 TAB 0 Refills 08/07/17 Omeprazole Magnesium (Prilosec) 20 Mg Tab, 20 MG PO DAILY 08/07/17 Levothyroxine (Levothyroxine) 125 Mcg Tab, 125 MCG PO DAILY for Thyroid, #30 TAB 0 Refills 08/07/17 Bethanechol (Bethanechol) 25 Mg Tab, 25 MG PO DAILY for Urinary Symptom Managemen, TAB 0 Refills 08/07/17 Doxazosin (Doxazosin) 4 Mg Tab, 4 MG PO HS, TAB 08/07/17 Allopurinol (Allopurinol) 100 Mg Tab, 100 MG PO DAILY for Gout, #30 TAB 0 Refills 08/07/17 Ramipril (Ramipril) 5 Mg Cap, 5 MG PO DAILY, #30 CAP 0 Refills 08/07/17 Current Medications Medications (Trade) Dose Ordered Sig/Az Route Start Time Stop Time Status Last Admin (D50w (Vial) Inj) 50 ml UNSCH PRN IV PUSH 12/28/17 07:00 01/04/18 06:48 (Glucagon Inj) 1 mg UNSCH PRN OTHER 12/28/17 07:00 (NS Flush) 2 ml UNSCH PRN IV FLUSH 12/28/17 07:00 01/07/18 05:32 (NS Flush) 2 ml BID IV FLUSH 12/28/17 09:00 01/26/18 21:11 (Tylenol) 650 mg Q6H PRN PO 12/28/17 07:00 (Delaney-Colace) 1 tab BID PO 12/28/17 09:00 01/26/18 21:14 (Senokot) 17.2 mg Q12H PRN PO 12/28/17 07:00 (Dulcolax Supp) 10 mg DAILY PRN RECTAL 12/28/17 07:00 (Cordarone) 200 mg DAILY PO 12/28/17 09:00 01/23/18 08:21 (Lipitor) 40 mg HS PO 12/28/17 21:00 01/26/18 21:12 (Cardura) 4 mg HS PO 12/28/17 21:00 01/26/18 21:11 (Synthroid) 125 mcg DAILY@0600 PO 12/28/17 07:00 01/27/18 06:43 (Zoloft) 50 mg BID PO 12/28/17 09:00 01/26/18 21:12 (Mirapex) 0.5 mg HS PO 12/28/17 21:00 01/26/18 21:11 (Percocet 5-325 Mg) 1 tab Q4H PRN PO 12/31/17 19:30 01/14/18 09:14 (Percocet 5-325 Mg) 2 tab Q4H PRN PO 12/31/17 19:30 01/27/18 06:43 (Atropine Inj) 0.5 mg UNSCH PRN IV PUSH 12/31/17 19:30 (Zofran Inj) 4 mg Q4H PRN IV PUSH 12/31/17 19:30 01/06/18 22:58 (Zyloprim) 100 mg DAILY PO 01/02/18 09:00 01/21/18 08:25 (Urecholine) 25 mg DAILY PO 01/02/18 09:00 01/21/18 08:25 Patient Own Medication PT OWN MED: NIACINAM... DAILY PO 01/02/18 09:00 Future Hold (Chloraseptic Kendall) 2 spray Q2H PRN OROPHARYNG 01/01/18 12:00 (Miralax) 17 gm BID PO 01/02/18 09:00 01/21/18 08:26 (Lactulose Liq) 30 ml QID PO 01/02/18 09:00 01/25/18 21:42 (Reglan Inj) 5 mg Q8HR IV PUSH 01/02/18 14:00 01/27/18 06:44 (Erythromycin Ec) 250 mg Q8HR PO 01/05/18 16:00 01/27/18 06:43 (Eliquis) 2.5 mg BID PO 01/07/18 09:00 Future Hold 01/23/18 22:30 (Levemir Inj) 4 units BID SQ 01/06/18 21:00 01/26/18 21:13 (NovoLOG SUPPLEMENTAL SCALE) 1 ACHS SQ 01/06/18 21:00 01/26/18 17:00 (Peridex 0.12% Liq) 15 ml BID@08,20 MT 01/07/18 08:00 01/21/18 20:15 Propofol 100 ml @ 3.261 mls/ hr TITRATE PRN IV 01/07/18 00:15 01/11/18 23:50 (Duoneb Neb) 1 ampule Q2HR NEB PRN NEB 01/14/18 16:00 01/18/18 16:36 Esmolol HCl/ Sodium Chloride 250 ml @ 28.41 mls/ hr TITRATE PRN IV 01/14/18 17:30 (Lanoxin Liq) 0.125 mg DAILY PO 01/15/18 16:00 01/24/18 10:15 (Prevacid Odt) 30 mg DAILY NG 01/16/18 09:00 01/21/18 08:25 (Ceftin) 500 mg Q12HR PO 01/18/18 09:00 01/26/18 21:12 (Lasix) 40 mg DAILY NG 01/19/18 09:00 Future Hold 01/21/18 08:25 (Free Water) 200 ml Q6HR G-TUBE 01/18/18 18:00 01/23/18 05:49 (Dakin'S 0.125% Soln) 500 ml DAILY TOPICAL 01/20/18 09:00 01/26/18 12:24 (Santyl Oint) 1 applic DAILY TOPICAL 01/20/18 09:00 01/26/18 12:24 (Xylocaine 5% Oint) 1 applic Q8H PRN TOPICAL 01/19/18 15:15 (Cardizem) 60 mg Q6H PO 01/21/18 21:00 01/27/18 02:08 Dextrose/Sodium Chloride 1,000 ml @ 100 mls/hr Q10H IV 01/21/18 15:15 01/27/18 02:08 (SEROquel) 25 mg BID PO 01/22/18 21:00 01/26/18 21:12 Cefazolin Sodium/ Dextrose 50 ml @ 100 mls/hr BINGO CALLER IV 01/24/18 16:45 01/27/18 16:44 (Haldol Inj) 2 mg ONCE ONCE IM 01/27/18 09:45 01/27/18 09:46 Family Psych History No family psychiatric history Social History Patient was born in [place], he left for several years in [place] before coming to [place] for assisted, he lives in a condo in [facility], single, no kids, Physical Exam Vital Signs Vital Signs Date Time Temp Pulse Resp B/P (MAP) Pulse Ox O2 Delivery O2 Flow Rate FiO2 01/27/18 08:00 97.9 95 18 151/51 (84) 95 01/26/18 20:30 Room Air 01/24/18 20:41 21 Lab Results Date/Time Source Procedure Growth Status 01/12/18 10:15 Sputum Endotracheal Gram Stain - Final Complete 01/12/18 10:15 Sputum Culture - Final Escherichia Coli Complete 01/20/18 09:55 Wound Buttock Gram Stain - Final Complete 01/20/18 09:55 Wound Culture - Final Henrietta Albicans Complete Mental Status Examination Appearance: Disheveled, Malodorous Consciousness: Obtunded, Clouded Orientation: Person, Place Speech: Hesitant, Incoherent Language: Adequate Fund of Knowledge: Inadequate Attention and Concentration: Easily Distracted Memory: Impaired Mood: Appropriate Affect: Appropriate Thought Process & Associations: Loose associations Thought Content: Thought blocking Hallucination Type: None Delusion Type: None Suicidal Ideation: No Suicidal Plan: No Suicidal Intention: No Homicidal Ideation: No Homicidal Plan: No Homicidal Intention: No Insight: Fair Judgment: Impulsive Assessment & Plan Problem List: (1) Delirium due to another medical condition ICD Codes: F05 - Delirium due to known physiological condition Assessment & Plan: On psychiatric evaluation today the patient presents confused, partially disoriented, with fluctuation of consciousness, with short periods of lucidity, on and off periods of agitation in the context of multiple medical illnesses decompensation, polypharmacy, lengthy hospitalization, potential underlying mild cognitive disorder. Current presentation is most probably related to delirium. Patient has an increased risk of agitation and behavioral dysregulation. Agree with Seroquel 25 mg twice daily, also with Zoloft 50 mg. Will add Haldol 2 mg IM every 8 hours as needed breakthrough severe agitation or aggressive behavior. Hold psychotropics if QTC is over 460. Avoid delivery genic drugs as much as possible, such as benzodiazepines, anticholinergic, narcotics. Frequent sensory stimulation, appropriate light in the room, familiar faces around the bed, frequent reorientation are measures that help in these cases. He does not meet criteria for involuntary psychiatric admission. Will follow up. (2) Encephalopathy ICD Codes: G93.40 - Encephalopathy, unspecified (3) Congestive heart failure ICD Codes: I50.9 - Heart failure, unspecified Status: Acute Assessment & Plan Estimated LOS: days Problem Qualifiers (1) Congestive heart failure: Qualified Codes: I50.9 - Heart failure, unspecified Sumit Ferrer MD Jan 27, 2018 09:58
[2018-01-27] MEDS: DIGOXIN SOLUTION 0.125 MG/2.5 ML CUP PO SCH (10:03)
--- NOTE | 2018-01-27 10:59 | HHI.NPPN ---
Subjective History of Present Illness 72 year old male with Chf/Atrial tachycardia/Afib admitted with Tachyarrhythmia Additional Remarks Patient remains confused. Objective Data Data Vital Signs Date Time Temp Pulse Resp B/P (MAP) Pulse Ox O2 Delivery O2 Flow Rate FiO2 01/27/18 08:00 97.9 95 18 151/51 (84) 95 01/27/18 07:44 18 01/27/18 04:55 98.0 104 18 153/69 (97) 94 01/27/18 04:00 104 01/27/18 00:15 97.6 103 18 132/68 (89) 92 01/27/18 00:00 105 01/26/18 20:55 98.1 117 18 116/72 (87) 96 01/26/18 20:30 Room Air 01/26/18 20:00 103 01/26/18 16:00 118 01/26/18 15:35 98.7 96 20 105/70 (82) 96 01/26/18 11:55 98.5 81 20 119/66 (83) 95 -: 01/26/18 0540 01/26/18 0510 Physical Exam General Appearance: Well Developed, Well Nourished Neck Neck Exam: Neck Supple Pulmonary Resp Exam: No Distress, Crackles, Rhonchi, Decreased Bases, Diminished Breath Sounds Cardiology CV Exam: Arrhythmia Gastrointestinal/Abdomen GI Exam: Soft, Non-Tender, Bowel Sounds Present Extremeties Extremities Exam: Trace Edema Neurologic Neuro Exam: Alert Assessment/Plan Problem List: (1) Acute renal failure ICD Codes: N17.9 - Acute kidney failure, unspecified Status: Acute Plan: Patient had cardiogenic shock and low blood pressure contributing, and cardiorenal syndrome He has underlying tachyarrhythmia Atrial fibrillation/atrial tachycardia s/p cardiac Ablation Stable renal function Remains confused and pulled IV out. Monitor renal panel periodically. Labs stable EGD and PEG placement pending consent Potassium was replaced (2) Chronic kidney disease, stage III (moderate) ICD Codes: N18.3 - Chronic kidney disease, stage III (moderate) Status: Acute Plan: Baseline care around 1.7 (3) Congestive heart failure ICD Codes: I50.9 - Heart failure, unspecified Status: Acute Plan: He is in cardiogenic shock low blood pressure causing the cardiorenal syndrome (4) PAF (paroxysmal atrial fibrillation) ICD Codes: I48.0 - Paroxysmal atrial fibrillation Plan: Cardiology was following (5) Diabetes ICD Codes: E11.9 - Diabetes Status: Chronic Plan: Monitor blood glucose (6) Acute on chronic systolic CHF (congestive heart failure) ICD Codes: I50.23 - Acute on chronic systolic (congestive) heart failure Problem Qualifiers (1) Acute renal failure: Qualified Codes: N17.8 - Other acute kidney failure (2) Congestive heart failure: Qualified Codes: I50.9 - Heart failure, unspecified Susan Solo MD Jan 27, 2018 10:59
[2018-01-27] MEDS ORDERED: POTASSIUM CHLORIDE 25 MEQ EFFERVESCENT TAB PO ONE (11:00)
[2018-01-27 12:59] LABS: BICARBONATE 22.6 MEQ/L (21.0-32.0); CALCIUM 7.7 MG/DL (8.5-10.1); CREATININE 1.46 MG/DL (0.60-1.30)
--- NOTE | 2018-01-27 13:22 | HHI.GIFU ---
Subjective Remarks Pt resting in bed. Confused. (Jyotsna Garsia SUPPLY ANALYST) Objective Vitals I&O Vital Signs Date Time Temp Pulse Resp B/P (MAP) Pulse Ox O2 Delivery O2 Flow Rate FiO2 01/27/18 12:00 98.2 116 20 148/60 (89) 96 01/27/18 11:15 21 01/27/18 08:00 97.9 95 18 151/51 (84) 95 01/27/18 07:44 18 01/27/18 04:55 98.0 104 18 153/69 (97) 94 01/27/18 04:00 104 01/27/18 00:15 97.6 103 18 132/68 (89) 92 01/27/18 00:00 105 01/26/18 20:55 98.1 117 18 116/72 (87) 96 01/26/18 20:30 Room Air 01/26/18 20:00 103 01/26/18 16:00 118 01/26/18 15:35 98.7 96 20 105/70 (82) 96 I/O 01/26/18 01/26/18 01/26/18 01/27/18 01/27/18 01/27/18 06:59 14:59 22:59 06:59 14:59 22:59 Intake Total 10 ml Balance 10 ml Intake Oral 10 ml # Voids 3 3 # Bowel Movements 2 0 Laboratory Laboratory Tests Test 01/27/18 12:05 Blood Urea Nitrogen 15 Creatinine 1.46 Random Glucose 269 Calcium Level 7.7 Sodium Level 138 Potassium Level 3.5 Chloride Level 106 Carbon Dioxide Level 22.6 Anion Gap 9 Estimat Glomerular Filtration Rate 47 Date/Time Source Procedure Growth Status 01/12/18 10:15 Sputum Endotracheal Gram Stain - Final Complete 01/12/18 10:15 Sputum Culture - Final Escherichia Coli Complete 01/20/18 09:55 Wound Buttock Gram Stain - Final Complete 01/20/18 09:55 Wound Culture - Final Henrietta Albicans Complete Imaging Last Impressions Chest X-Ray 01/14/18 0000 Signed Impressions: Service Date/Time: Sunday, January 14, 2018 07:34 - CONCLUSION: Increasing interstitial edema otherwise stable. Tee Jimenes MD FACR Abdomen X-Ray 01/07/18 0600 Signed Impressions: Service Date/Time: Sunday, January 07, 2018 04:29 - CONCLUSION: Possible slight interval improvement in gaseous distention of bowel Lito Adkins MD Abdomen/Pelvis CT 01/04/18 0000 Signed Impressions: Service Date/Time: Thursday, January 04, 2018 10:34 - CONCLUSION: 1. Abnormal bowel gas pattern most characteristic of an ileus. There is a small amount of ascitic fluid in right paracolic gutter and pelvis. 2. Bilateral pleural effusions right greater than left with consolidation in both posterior lung bases. 3. Nasogastric tube in place with the tip in the proximal duodenum. 4. Mild diverticulosis. John Neville MD Renal Ultrasound 01/01/18 0000 Signed Impressions: Service Date/Time: December 18:16 - CONCLUSION: 1. No evidence of hydronephrosis. 2. No new or significant changes compared to the prior exam 3. 2.2 cm right renal cyst. Luiz Frey MD Physical Exam HEENT: Normocephalic; atraumatic CHEST: Even/unlabored CARDIAC: RRR ABDOMEN: soft,obese, bowel sounds active SKIN: Normal; no rash; no jaundice. 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 Per RN pt remains confused, he ripped out his IV earlier. [place] has not come to sign consent for PEG yet. Annabel on hold 01/26/18 pt confused. PEG tube placement cancelled, no consent obtained psych consult pending 01/27/18 consent not obtained for PEG. pt is confused. PLAN - TF recommendations per speech therapy - supportive care - GI will sign off. please reconsult when consent obtained for PEG. Pt has been seen and examined by myself and Dr. Hillman and this note is written on his behalf (Jyotsna Garsia) Physician Comments Patient seen and examined Agree with above Continue with current supportive care Please reconsult for PEG placement once consent is obtained We will sign off (Juan Hillman MD) Jyotsna Garsia Jan 27, 2018 1:21 pm Juan Hillman MD Jan 27, 2018 2:28 pm
--- NOTE | 2018-01-27 14:05 | HHI.HCPN ---
Reason for visit a. To assist with evaluation and management of symptoms including: Encephalopathy, dyspnea, dysphasia, agitation, pain b. To assist medical decision maker(s) with: better understanding of current medical conditions; weighing benefits/burdens of medical treatment options; making medical treatment decisions. . Subjective/Interval History Patient is a 72-year-old male with CHF, atrial tachycardia and atrial fibrillation who was admitted with tachyarrhythmia. Patient underwent cardiac ablation; he was intubated postoperatively secondary to respiratory failure. Status post PEA arrest and prolonged ICU course. Follow up visit for symptom management of encephalopathy, dyspnea, agitation, dysphagia and pain. Patient seen and assessed in room 1432. Patient remains confused; oriented to self only. He does not understand the he is in the hospital or why he is here. He denies dyspnea. Patient showing no s/s acute distress on examination, but is reportedly experiencing pain secondary to a stage IV and stage III pressure injuries on the coccyx and inner buttocks bilaterally. Wound growing curt albicans, foul smelling drainage is noted. Per nursing report, patient experiencing moderate-severe pain intermittently as evidenced by verbal complaints, grimacing and moaning. Patient has described the pain as hot or burning. PRN Percocet is available every 4 hours as needed, but the patient is refusing most PO medications. 24 hour PRN dosing = 2 tablets 2. Psychiatry was consulted for recommendations for symptom management of agitation. Patient is currently on Seroquel 25 mg twice daily and Zoloft 50 mg daily. Haldol 2 mg IM every 8 hours was added as needed for severe agitation and/or aggressive behavior. Hold psychotropics if QTC is over 460. Oral intake has been inadequate; refusing medication. Over the course of this hospitalization, documented EMR weight loss is 28.3 kg. Patient will require a PEG tube if goals remain aggressive, although he may pull it out. Gastroenterology was consulted for PEG tube placement. Palliative care spoke to the healthcare proxy, Corinna, to discuss the benefits versus burdens of artificial nutrition. At this point in time Corinna indicated she wanted to proceed with EGD/PEG tube placement, although she has been unreachable and/or not returning phone calls regarding consent for procedure. Nurse (Georges) notified that the HCP is ready to consent for procedure; case management is also aware. . Advance Directives Living Will: Never completed Health Care Surrogate: Never completed Durable Power of Screen Handler: Never completed Objective Vital Signs Date Time Temp Pulse Resp B/P (MAP) Pulse Ox O2 Delivery O2 Flow Rate FiO2 01/27/18 12:00 98.2 116 20 148/60 (89) 96 01/27/18 11:15 21 01/27/18 08:00 97.9 95 18 151/51 (84) 95 01/27/18 07:44 18 01/27/18 04:55 98.0 104 18 153/69 (97) 94 01/27/18 04:00 104 01/27/18 00:15 97.6 103 18 132/68 (89) 92 01/27/18 00:00 105 01/26/18 20:55 98.1 117 18 116/72 (87) 96 01/26/18 20:30 Room Air 01/26/18 20:00 103 01/26/18 16:00 118 01/26/18 15:35 98.7 96 20 105/70 (82) 96 . Physical Exam CONSTITUTIONAL/GENERAL: This is a confused, elderly male patient in no acute distress. TUBES/LINES/DRAINS: Condom catheter, PIV SKIN: No jaundice, rashes, or lesions. Few areas of ecchymosis to upper extremities. Skin warm and dry. Generalized pallor. HEAD: Atraumatic. Normocephalic. EYES: Pupils equal and round and reactive. Extraocular motions intact. No scleral icterus. No injection or drainage. Fundi not examined. ENT: Hard of hearing. Nose without bleeding or purulent drainage. Poor dentition. Oral mucosa dry. NECK: Trachea midline. Supple, nontender. No palpable thyroid enlargement or nodularity. CARDIOVASCULAR: Irregular rate and rhythm. No murmur. No JVD. Peripheral pulses symmetric. RESPIRATORY/CHEST: Symmetric, unlabored respirations on RA. CTA. Breath sounds equal bilaterally. GASTROINTESTINAL: Abdomen soft, round/obese, non-tender, nondistended. No hepato -splenomegaly, or palpable masses. No guarding. Bowel sounds normoactive. GENITOURINARY: Without palpable bladder distension. Condom catheter MUSCULOSKELETAL: Extremities without clubbing, cyanosis, or edema. NEUROLOGICAL: Awake. Oriented to person only. Patient does not know where he is and has no insight into hospitalization. Does move all 4 extremities with generalized weakness. Moving all extremities 4 PSYCHIATRIC: Somewhat flat, lethargic, confused. Intermittently agitated. Difficult to assess given clinical condition. . Diagnostic Tests Laboratory Laboratory Tests Test 01/26/18 05:10 01/26/18 05:40 01/27/18 12:05 Blood Urea Nitrogen 18 MG/DL (7-18) 15 MG/DL (7-18) Creatinine 1.37 MG/DL (0.60-1.30) 1.46 MG/DL (0.60-1.30) Random Glucose 225 MG/DL (74-106) 269 MG/DL (74-106) Calcium Level 7.5 MG/DL (8.5-10.1) 7.7 MG/DL (8.5-10.1) Sodium Level 140 MEQ/L (136-145) 138 MEQ/L (136-145) Potassium Level 3.0 MEQ/L (3.5-5.1) 3.5 MEQ/L (3.5-5.1) Chloride Level 106 MEQ/L (98-107) 106 MEQ/L (98-107) Carbon Dioxide Level 23.7 MEQ/L (21.0-32.0) 22.6 MEQ/L (21.0-32.0) Anion Gap 10 MEQ/L (5-15) 9 MEQ/L (5-15) Estimat Glomerular Filtration Rate 51 ML/MIN (>89) 47 ML/MIN (>89) White Blood Count 6.9 TH/MM3 (4.0-11.0) Red Blood Count 4.07 MIL/MM3 (4.50-5.90) Hemoglobin 10.9 GM/DL (13.0-17.0) Hematocrit 34.0 % (39.0-51.0) Mean Corpuscular Volume 83.5 FL (80.0-100.0) Mean Corpuscular Hemoglobin 26.9 PG (27.0-34.0) Mean Corpuscular Hemoglobin Concent 32.2 % (32.0-36.0) Red Cell Distribution Width 23.2 % (11.6-17.2) Platelet Count 286 TH/MM3 (150-450) Mean Platelet Volume 9.2 FL (7.0-11.0) Neutrophils (%) (Auto) 71.6 % (16.0-70.0) Lymphocytes (%) (Auto) 15.3 % (9.0-44.0) Monocytes (%) (Auto) 9.4 % (0.0-8.0) Eosinophils (%) (Auto) 3.3 % (0.0-4.0) Basophils (%) (Auto) 0.4 % (0.0-2.0) Neutrophils # (Auto) 4.9 TH/MM3 (1.8-7.7) Lymphocytes # (Auto) 1.1 TH/MM3 (1.0-4.8) Monocytes # (Auto) 0.6 TH/MM3 (0-0.9) Eosinophils # (Auto) 0.2 TH/MM3 (0-0.4) Basophils # (Auto) 0.0 TH/MM3 (0-0.2) CBC Comment DIFF FINAL Differential Comment . Result Diagram: 01/26/18 0540 01/27/18 1205 Procedures 01/02 Extubated postprocedure 01/06 decompressive colonoscopy 01/07 reintubated during PEA arrest 01/12/18 extubated . Assessment and Plan Disease Oriented Problem List: (1) Acute on chronic systolic CHF (congestive heart failure) (2) CKD (chronic kidney disease) stage 3, GFR 30-59 ml/min (3) PAF (paroxysmal atrial fibrillation) (4) Hypothyroidism (5) Elevated troponin (6) Diabetes (7) Acute kidney injury superimposed on chronic kidney disease (8) Hypertension (9) Hyperlipidemia (10) Ileus Symptom Scale: (1) Dysphagia 0-10 Scale: Unable to quantify (2) Dyspnea 0-10 Scale: Unable to quantify (3) Encephalopathy 0-10 Scale: Unable to quantify (4) Agitation 0-10 Scale: Unable to quantify (5) Pain 0-10 Scale: Unable to quantify Pertinent Non-Medical Issues Psychosocial:Patient originally from [place], moved to [place] for [facility]. Live-in caregiver has assisted him for about the past 5 years. She indicates he just before she started caring for him. She is not aware of any other family except for a cousin Alex Night. ex 's name is Olivia Otto. Retired, caregiver not certain what type of work he did prior to m[facility]. 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 Patient's hired caregiver, Corinna Powell, stated she would be willing to act in the role of healthcare proxy s/p accurints report that did not identify any family members who were willing to act in the role of health care proxy decision maker. Ethical issues impacting care: No ethical issues identified at this time. . Important Contacts Corinna Powell [phone] / [phone] . Prognosis This patient has had multiple recent hospitalizations for cardiac conditions with some respiratory complications. He has been intubated twice this admission. He also suffered an ileus. Due to advanced age and multiple chronic medical conditions he does remain at risk for ongoing complications and potential setbacks. He may require rehabilitation following this acute hospitalization. . Code Status: Full Code (By default) Plan * FULL CODE by default * Patient's hired caregiver, Corinna Powell, stated she would be willing to act in the role of healthcare proxy s/p accurints report that did not identify any family members who were willing to act in the role of health care proxy decision maker. * Palliative care had tentative plans to meet with the patient's healthcare proxy on 01/23/18 but the HCP was a no-show. Multiples attempts were made to contact the HCP. Veronika Cedeno, Palliative Care MAMMOGRAPHY TECHNOLOGIST, was able to speak to the HCP briefly via telephone and explained that she was uncomfortable making difficult medical treatment decisions for the patient she could opt out, but the Dawm/HCP stated she wanted to fulfil this role. * Discussed current medical treatment goals with RN Meron) and Dr. Hodges. * SYMPTOMS: --Dyspnea: Patient reported with chronic dyspnea and orthopnea. He has had episodes of heart failure and atrial fibrillation contributing to this. Status post medical extubation 2 this admission. Concern for aspiration. Patient denies dyspnea. On Ceftin and PRN nebulizer treatments --Dysphagia: Oral intake has been inadequate; refusing medication. Over the course of this hospitalization, documented EMR weight loss is 28.3 kg. Patient will require a PEG tube if goals remain aggressive, although he may pull it out. Gastroenterology was consulted for EGD with PEG tube, but the patient's HCP has not sign consents It signed consents. --Encephalopathy: Status post PEA arrest 01/06 with ROSC after about 10 minutes. Reported he was cognitively sharp prior to admission per caregiver though prior H&P's do note at times poor historian. Caregiver reports he was paying his own bills prior to this admission. Concern for anoxic injury. --Agitation: Patient pulled put NGT as well as IV access, requiring nonviolent restraints overnight. Psychiatry was consulted. Patient is currently receiving Seroquel 2 times daily and Zoloft daily. Haldol 2 mg IM every 8 hours as needed for agitation or aggressive behavior was ordered. --Pain: Patient having severe pain as evidenced by moaning and grimacing; patient is able to identify pain is secondary to wound on his buttocks. 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 Wound culture + Curt albicans. Pain is exacerbated by repositioning and care. Recommendations to position patient off buttocks as much and utilize PRN percocet prior to care. Palliative care will continue to follow during hospital course as condition evolves, to assist patient/decision-maker with understanding of medical conditions, weighing benefits/burdens of treatment options, for clarification of goals of treatment. Additionally will assist with any symptoms of palliative concern. . Attestation To help prompt me to consider important information that might be impacting today's encounter and assessment, information from prior notes written by myself or my colleagues may have been "brought forward" into today's note. My signature on this note, however, is an attestation that I personally performed the exam, history, and/or decision-making noted today, and, unless otherwise indicated, the interactions with patient, family, and staff as well as the review of records all occurred today. I also attest that the listed assessment and stated plan reflect my best clinical judgment today based on the combination of historical information, prior notes, and today's exam/ interactions. When time spent is documented, it refers only to time spent today by the signer, or if indicated, combined time spent today by collaborating physician/nurse practitioner. . Sadie Lyon Jan 27, 2018 14:05
--- NOTE | 2018-01-27 16:02 | HHI.PR ---
Subjective Remarks lethargic, awakened to call of his name repeatedly not interactive Objective Vitals Vital Signs Date Time Temp Pulse Resp B/P (MAP) Pulse Ox O2 Delivery O2 Flow Rate FiO2 01/27/18 12:00 98.2 116 20 148/60 (89) 96 01/27/18 11:15 21 01/27/18 08:00 97.9 95 18 151/51 (84) 95 01/27/18 07:44 18 01/27/18 04:55 98.0 104 18 153/69 (97) 94 01/27/18 04:00 104 01/27/18 00:15 97.6 103 18 132/68 (89) 92 01/27/18 00:00 105 01/26/18 20:55 98.1 117 18 116/72 (87) 96 01/26/18 20:30 Room Air 01/26/18 20:00 103 I/O 01/26/18 01/26/18 01/26/18 01/27/18 01/27/18 01/27/18 07:00 15:00 23:00 07:00 15:00 23:00 Intake Total 10 ml Balance 10 ml Intake Oral 10 ml # Voids 3 3 # Bowel Movements 2 0 Result Diagram: 01/26/18 0540 01/27/18 1205 Imaging Last Impressions Chest X-Ray 01/14/18 0000 Signed Impressions: Service Date/Time: Sunday, January 14, 2018 07:34 - CONCLUSION: Increasing interstitial edema otherwise stable. Tee Jimenes MD FACR Abdomen X-Ray 01/07/18 0600 Signed Impressions: Service Date/Time: Sunday, January 07, 2018 04:29 - CONCLUSION: Possible slight interval improvement in gaseous distention of bowel Lito Adkins MD Abdomen/Pelvis CT 01/04/18 0000 Signed Impressions: Service Date/Time: Thursday, January 04, 2018 10:34 - CONCLUSION: 1. Abnormal bowel gas pattern most characteristic of an ileus. There is a small amount of ascitic fluid in right paracolic gutter and pelvis. 2. Bilateral pleural effusions right greater than left with consolidation in both posterior lung bases. 3. Nasogastric tube in place with the tip in the proximal duodenum. 4. Mild diverticulosis. John Neville MD Renal Ultrasound 01/01/18 0000 Signed Impressions: Service Date/Time: December 18:16 - CONCLUSION: 1. No evidence of hydronephrosis. 2. No new or significant changes compared to the prior exam 3. 2.2 cm right renal cyst. Luiz Frey MD Objective Remarks lethargic anicteric dry oral mucosa no nuhcal rigidity decrease breath sounds, no wheezes regular rhythma bdomen soft, good bowel sounds condom catheter in place extremities trace pretibial edema A/P Problem List: (1) Acute on chronic systolic CHF (congestive heart failure) ICD Code: I50.23 - Acute on chronic systolic (congestive) heart failure (2) PAF (paroxysmal atrial fibrillation) ICD Code: I48.0 - Paroxysmal atrial fibrillation (3) Acute kidney injury superimposed on chronic kidney disease ICD Code: N17.9 - Acute kidney failure, unspecified; N18.9 - Chronic kidney disease, unspecified (4) Hypothyroidism ICD Code: E03.9 - Hypothyroidism Status: Acute (5) Diabetes ICD Code: E11.9 - Diabetes Status: Chronic (6) Hyperkalemia ICD Code: E87.5 - Hyperkalemia Status: Acute Assessment and Plan This is a pleasant 72 y/o male with Atrial Fibrillation with RVR, underwent Cardiac Ablation, developed respiratory failure and was postoperatively intubated, was in Intensive care unit, Status post PEA arrest. Concern for aspiration event. Patient was extubated. Prolonged ICU course. He has been downgraded to the floor. Patient with profound encephalopathy, confused, ? anoxic injury. Not cooperating with treatment. not eating or drinking enough, may need PEG tube placement, palliative care will get a meeting with caregiver today. Acute hypoxic and hypercarbic respiratory failure MUNA -nocturnal CPAP 8 cm H2O Moderate right pleural effusion Extubated 01/02. reintubated 01/07 during PEA arrest, extubated again 01/12/18 wean fio2 for goal spo2 > 90% Nebs as needed EzPAP, A[place]ella Chronic diastolic heart failure, with exacerbation ejection fraction 45-50% recurrent atrial fibrillation with rapid ventricular response s/p PEA arrest 01/07 Status post ablation for A. fib/flutter Hypertension Dyslipidemia Continue amiodarone 200 mg by mouth daily Received IV digoxin and IV metoprolol 01/14 digoxin 0.125 mg p.o. daily Increase Cardizem 60 mg p.o. every 6 hours. Holding diltiazem 240 mg p.o. daily/ home medication Continue atorvastatin 40 mg p.o. daily for his lipidemia At home on fish oil/cholecalciferol 1200/1000 1 tablet twice daily/home medication Holding ramipril 5 mg p.o. daily for hypertension with acute kidney injury Dr. Ramirez evaluated no further plans at this time Encephalopathy,? Anoxic injury: Depression/anxiety Chronic narcotic use continue sertraline 50 mg twice daily/home medication for depression Continue pramipexole 0.5 mg p.o. daily for extrapyramidal side effects Currently holding buspirone 5 mg 3 times daily anxiety On oxycodone/acetaminophen 5/325 1 - 2 tablets every 4 hours as needed pain PT/OT/speech He remains encephalopathic Gastroesophageal reflux disease Elevated transaminases Ileus Sigmoid diverticulosis Internal/external hemorrhoids Advance diet per speech therapy recommendations. Not tolerating enough p.o. nutrition yet. Continue NGT. If no improvement, will need to discuss with family regarding permanent tube feeding. Docusate sodium/senna 1 tablet twice daily for bowel regimen with polyethylene glycol 17 g twice daily and lactulose 30 cc 4 times daily Follow transaminases intermittently is likely congestion. Further workup and On metoclopramide 5 mg IV every 8 hours and erythromycin [address] abdomen/pelvis revealed dilated small and large bowel. Colonoscopy by Dr. Bella/revealed sigmoid diverticulosis. Decompression of colon. Internal and external hemorrhoids. Asked again for GI specialist evaluation for probable PEG tube placement for today but procedure cancelled due to that there's no next of kin to sign consent asked for Dietitian for TPN. BPH/overflow Continue doxazosin 4 mg daily and bethanechol 25 mg daily Diabetes mellitus Hypothyroidism Low testosterone Currently on insulin detemir 4 units twice daily with NovoLog sliding scale insulin/low regimen before meals at bedtime At home on insulin glargine 12 units twice daily with sliding scale insulin Continue levothyroxine 125 mcg p.o. daily. TSH 3.06 Holding testosterone Even some uncontrolled blood sugar the patient is not eating will wait for PEG tube placement. Acute kidney injury likely secondary to cardiorenal syndrome Renal cyst right 2.2 cm Followed by nephrology. Monitor urine output Accurate I's and O's. stable Renal ultrasound with no hydronephrosis. Right renal cyst 2.2 cm. Rare eosinophils urine. Chronic apixaban use Normocytic normochromic anemia Currently renally dose of 2.5 mg twice daily. Monitor CBC daily. Follow trends Debility: - Secondary to comorbid conditions above. Patient will need SNF placement. Continue rehab efforts. Overall Poor short term prognosis. Prophylaxis -GI -Lansoprazole -DVT -SCD/apixaban will need PEG for medication and nutrition- d/w staff nurse- got consent signed just now- will reconsult GI Discharge Planning awaiting final by Palliative care probable on Friday today the Caregiver won't be able to come during the discharge Hours Micheal Adame MD Jan 27, 2018 16:02
--- NOTE | 2018-01-27 16:45 | HHI.GIFU ---
Subjective Remarks GI reconsulted for EGD and PEG tube placement, d/w RN and consent has been obtained. (Jyotsna Garsia) Objective Vitals I&O Vital Signs Date Time Temp Pulse Resp B/P (MAP) Pulse Ox O2 Delivery O2 Flow Rate FiO2 01/27/18 12:00 98.2 116 20 148/60 (89) 96 01/27/18 11:15 21 01/27/18 08:00 97.9 95 18 151/51 (84) 95 01/27/18 07:44 18 01/27/18 04:55 98.0 104 18 153/69 (97) 94 01/27/18 04:00 104 01/27/18 00:15 97.6 103 18 132/68 (89) 92 01/27/18 00:00 105 01/26/18 20:55 98.1 117 18 116/72 (87) 96 01/26/18 20:30 Room Air 01/26/18 20:00 103 I/O 01/26/18 01/26/18 01/26/18 01/27/18 01/27/18 01/27/18 06:59 14:59 22:59 06:59 14:59 22:59 Intake Total 10 ml Balance 10 ml Intake Oral 10 ml # Voids 3 3 # Bowel Movements 2 0 Laboratory Laboratory Tests Test 01/27/18 12:05 Blood Urea Nitrogen 15 Creatinine 1.46 Random Glucose 269 Calcium Level 7.7 Sodium Level 138 Potassium Level 3.5 Chloride Level 106 Carbon Dioxide Level 22.6 Anion Gap 9 Estimat Glomerular Filtration Rate 47 Date/Time Source Procedure Growth Status 01/12/18 10:15 Sputum Endotracheal Gram Stain - Final Complete 01/12/18 10:15 Sputum Culture - Final Escherichia Coli Complete 01/20/18 09:55 Wound Buttock Gram Stain - Final Complete 01/20/18 09:55 Wound Culture - Final Henrietta Albicans Complete Imaging Last Impressions Chest X-Ray 01/14/18 0000 Signed Impressions: Service Date/Time: Sunday, January 14, 2018 07:34 - CONCLUSION: Increasing interstitial edema otherwise stable. Tee Jimenes MD FACR Abdomen X-Ray 01/07/18 0600 Signed Impressions: Service Date/Time: Sunday, January 07, 2018 04:29 - CONCLUSION: Possible slight interval improvement in gaseous distention of bowel Lito C. Tonkin, MD Abdomen/Pelvis CT 01/04/18 0000 Signed Impressions: Service Date/Time: Thursday, January 04, 2018 10:34 - CONCLUSION: 1. Abnormal bowel gas pattern most characteristic of an ileus. There is a small amount of ascitic fluid in right paracolic gutter and pelvis. 2. Bilateral pleural effusions right greater than left with consolidation in both posterior lung bases. 3. Nasogastric tube in place with the tip in the proximal duodenum. 4. Mild diverticulosis. John Neville MD Renal Ultrasound 01/01/18 0000 Signed Impressions: Service Date/Time: December 18:16 - CONCLUSION: 1. No evidence of hydronephrosis. 2. No new or significant changes compared to the prior exam 3. 2.2 cm right renal cyst. Luiz Frey MD Physical Exam HEENT: Normocephalic; atraumatic CHEST: Even/unlabored CARDIAC: RRR ABDOMEN: soft,obese, bowel sounds active SKIN: Normal; no rash; no jaundice. CHAIN SALES CONSULTANT: Confused (Jyotsna Garsia) Assessment and Plan Plan ASSESSMENT - Inadequate PO intake and refusing to take meds Nutrition recommends enteral feedings if goals remain aggressive Pt has a hired order analyst who makes medical decisions would like to proceed with PEG tube - Previously seen by our service for decompressive colonoscopy January 07 per HPI - S/P PEA- now extubated on medical floor - Confused- in soft wrist restraints- unable to provide history (01/25) No oil changer night. Per RN pt remains confused, he ripped out his IV earlier. Rn First Assistant has not come to sign consent for PEG yet. Annabel on hold 01/26/18 pt confused. PEG tube placement cancelled, no consent obtained psych consult pending 01/27/18 consent not obtained for PEG. pt is confused. seen again @ 1640, consent obtained PLAN - EGD and PEG placement tomorrow - NPO after midnight - pt is on ceftin BID Pt has been seen and examined by myself and Dr. Hillman and this note is written on his behalf (Jyotsna Garsia) Physician Comments Patient seen and examined Agree with above Continue with current supportive care Monitor lab PEG placement tomorrow (Juan Hillman MD) Jyotsna GarsiaP Jan 27, 2018 16:45 Juan Hillman MD Jan 27, 2018 18:42
[2018-01-27] MEDS: ATORVASTATIN 40 MG TAB PO SCH ×2 (21:00→21:45)
[2018-01-27] MEDS: DOXAZOSIN MESYLATE 4 MG TAB PO SCH ×2 (21:00→21:45)
[2018-01-27] MEDS: PRAMIPEXOLE DIHYDROCHLORIDE 0.25 MG TAB PO SCH ×2 (21:00→21:45)
[2018-01-28] VITALS (9 sets, daily range): BP systolic 101–134; BP diastolic 70–93; PULSE 84–117; RESP 18–23; TEMP 97.3–99.9; O2SAT 93–96
[2018-01-28] MEDS: oxyCODONE/ACETAMINOPHEN 5 MG/325 MG TAB PO PRN ×3 (03:01→15:21)
[2018-01-28] MEDS: DILTIAZEM HCL 30 MG TAB PO SCH ×4 (03:01→22:17)
[2018-01-28] MEDS: FREE WATER G-TUBE SCH ×4 (04:56→17:34)
[2018-01-28] MEDS: LEVOTHYROXINE SODIUM 125 MCG TAB PO SCH (06:00)
[2018-01-28] MEDS: ERYTHROMYCIN EC 250 MG TABEC PO SCH ×3 (06:00→22:17)
[2018-01-28] MEDS: DEXTROSE 5%-NACL 0.225% INJ 1,000 ML IV SCH ×2 (06:27→09:40)
[2018-01-28] MEDS: METOCLOPRAMIDE HCL 10 MG/2 ML VIAL IV PUSH SCH ×3 (06:28→22:18)
[2018-01-28 08:07] LABS: BICARBONATE 23.4 MEQ/L (21.0-32.0); CALCIUM 7.7 MG/DL (8.5-10.1); CREATININE 1.31 MG/DL (0.60-1.30)
--- NOTE | 2018-01-28 09:20 | HHI.PR ---
Subjective Remarks more awake and alert this am stated his name, "[facility]" ff all commands and moves all extremities spontaenously Objective Vitals Vital Signs Date Time Temp Pulse Resp B/P (MAP) Pulse Ox O2 Delivery O2 Flow Rate FiO2 01/28/18 04:15 99.9 116 18 116/70 (85) 93 01/28/18 04:00 103 01/28/18 00:51 98.2 114 18 112/78 (89) 96 01/28/18 00:00 117 01/28/18 00:00 Room Air 01/27/18 21:30 Room Air 01/27/18 20:11 98.1 119 20 100/73 (82) 100 01/27/18 20:00 113 01/27/18 17:09 96 21 01/27/18 16:00 97.9 116 21 149/69 (95) 95 01/27/18 16:00 114 01/27/18 12:00 116 01/27/18 12:00 98.2 116 20 148/60 (89) 96 01/27/18 11:15 21 I/O 01/27/18 01/27/18 01/27/18 01/28/18 01/28/18 01/28/18 07:00 15:00 23:00 07:00 15:00 23:00 Intake Total 1000 ml 752 ml 999 ml Output Total 300 ml 700 ml Balance 1000 ml 452 ml 299 ml Intake Oral 240 ml IV Total 1000 ml 512 ml 999 ml Output Urine Total 300 ml 700 ml # Bowel Movements 0 Result Diagram: 01/26/18 0540 01/28/18 0710 Imaging Last Impressions Chest X-Ray 01/14/18 0000 Signed Impressions: Service Date/Time: Sunday, January 14, 2018 07:34 - CONCLUSION: Increasing interstitial edema otherwise stable. Tee Jimenes MD FACR Abdomen X-Ray 01/07/18 0600 Signed Impressions: Service Date/Time: Sunday, January 07, 2018 04:29 - CONCLUSION: Possible slight interval improvement in gaseous distention of bowel Lito Adkins MD Abdomen/Pelvis CT 01/04/18 0000 Signed Impressions: Service Date/Time: Thursday, January 04, 2018 10:34 - CONCLUSION: 1. Abnormal bowel gas pattern most characteristic of an ileus. There is a small amount of ascitic fluid in right paracolic gutter and pelvis. 2. Bilateral pleural effusions right greater than left with consolidation in both posterior lung bases. 3. Nasogastric tube in place with the tip in the proximal duodenum. 4. Mild diverticulosis. John Neville MD Renal Ultrasound 01/01/18 0000 Signed Impressions: Service Date/Time: December 18:16 - CONCLUSION: 1. No evidence of hydronephrosis. 2. No new or significant changes compared to the prior exam 3. 2.2 cm right renal cyst. Luiz Frey MD Objective Remarks awake and alert, ff commands, stazted his name, "[facility]" anicteric dry oral mucosa no nuchal rigidity decrease breath sounds, no wheezes regular rhythm abdomen soft, good bowel sounds, no guarding condom catheter in place extremities trace pretibial edema A/P Problem List: (1) Acute on chronic systolic CHF (congestive heart failure) ICD Code: I50.23 - Acute on chronic systolic (congestive) heart failure (2) PAF (paroxysmal atrial fibrillation) ICD Code: I48.0 - Paroxysmal atrial fibrillation (3) Acute kidney injury superimposed on chronic kidney disease ICD Code: N17.9 - Acute kidney failure, unspecified; N18.9 - Chronic kidney disease, unspecified (4) Hypothyroidism ICD Code: E03.9 - Hypothyroidism Status: Acute (5) Diabetes ICD Code: E11.9 - Diabetes Status: Chronic (6) Hyperkalemia ICD Code: E87.5 - Hyperkalemia Status: Acute Assessment and Plan This is a pleasant 72 y/o male with Atrial Fibrillation with RVR, underwent Cardiac Ablation, developed respiratory failure and was postoperatively intubated, was in Intensive care unit, Status post PEA arrest. Concern for aspiration event. Patient was extubated. Prolonged ICU course. He has been downgraded to the floor. Patient with profound encephalopathy, confused, ? anoxic injury. Not cooperating with treatment. not eating or drinking enough, may need PEG tube placement, palliative care ff Acute hypoxic and hypercarbic respiratory failure MUNA -nocturnal CPAP 8 cm H2O Moderate right pleural effusion Extubated 01/02. reintubated 01/07 during PEA arrest, extubated again 01/12/18 wean fio2 for goal spo2 > 90% Nebs as needed EzPAP, Acapella Chronic diastolic heart failure, with exacerbation ejection fraction 45-50% recurrent atrial fibrillation with rapid ventricular response s/p PEA arrest 01/07 Status post ablation for A. fib/flutter Hypertension Dyslipidemia Chronic apixaban use Normocytic normochromic anemia Currently renally dose of 2.5 mg twice daily- on hold for PEg and patient refusing po meds Monitor CBC daily. Follow trends Continue amiodarone 200 mg by mouth daily Received IV digoxin and IV metoprolol 01/14 digoxin 0.125 mg p.o. daily Increase Cardizem 60 mg p.o. every 6 hours. Holding diltiazem 240 mg p.o. daily/ home medication Continue atorvastatin 40 mg p.o. daily for his lipidemia At home on fish oil/cholecalciferol 1200/1000 1 tablet twice daily/home medication Holding ramipril 5 mg p.o. daily for hypertension with acute kidney injury Dr. Ramirez evaluated no further plans at this time Encephalopathy,? Anoxic injury:- today more awake Depression/anxiety Chronic narcotic use continue sertraline 50 mg twice daily/home medication for depression Continue pramipexole 0.5 mg p.o. daily for extrapyramidal side effects Currently holding buspirone 5 mg 3 times daily anxiety On oxycodone/acetaminophen 5/325 1 - 2 tablets every 4 hours as needed pain PT/OT/speech Gastroesophageal reflux disease Elevated transaminases Ileus Sigmoid diverticulosis Internal/external hemorrhoids Advance diet per speech therapy recommendations. Not tolerating enough p.o. nutrition yet. Docusate sodium/senna 1 tablet twice daily for bowel regimen with polyethylene glycol 17 g twice daily and lactulose 30 cc 4 times daily Follow transaminases intermittently is likely congestion. Further workup and On metoclopramide 5 mg IV every 8 hours and erythromycin [address] abdomen/pelvis revealed dilated small and large bowel. Colonoscopy by Dr. Bella/revealed sigmoid diverticulosis. Decompression of colon. Internal and external hemorrhoids. Asked again for GI specialist evaluation for probable PEG tube placement for today but procedure cancelled due to that there's no next of kin to sign consent PEG today- awaiting consent - daughter coming today- for nutrition and meds route BPH/overflow Continue doxazosin 4 mg daily and bethanechol 25 mg daily Diabetes mellitus Hypothyroidism Low testosterone Currently on insulin detemir 4 units twice daily with NovoLog sliding scale insulin/low regimen before meals at bedtime At home on insulin glargine 12 units twice daily with sliding scale insulin Continue levothyroxine 125 mcg p.o. daily. TSH 3.06 Holding testosterone Even some uncontrolled blood sugar the patient is not eating will wait for PEG tube placement. Acute kidney injury likely secondary to cardiorenal syndrome Renal cyst right 2.2 cm Followed by nephrology. Monitor urine output Accurate I's and O's. stable Renal ultrasound with no hydronephrosis. Right renal cyst 2.2 cm. Rare eosinophils urine. Debility: - Secondary to comorbid conditions above. Patient will need SNF placement. Continue rehab efforts. Overall Poor short term prognosis. Prophylaxis -GI -Lansoprazole -DVT -SCD/apixaban Discharge Planning awaiting final by Palliative care probable on Friday today the Caregiver won't be able to come during the discharge Hours Micheal Adame MD Jan 28, 2018 09:20
[2018-01-28] MEDS: BETHANECHOL CHL 25 MG TAB PO SCH (09:41)
[2018-01-28] MEDS: ALLOPURINOL 100 MG TAB PO SCH (09:41)
[2018-01-28] MEDS: DOCUSATE SODIUM 50 MG/SENNA 8.6 MG TAB PO SCH ×2 (09:41→22:17)
[2018-01-28] MEDS: AMIODARONE 200 MG TAB PO SCH (09:41)
[2018-01-28] MEDS: LACTULOSE SYRUP 20 GM/30 ML CUP PO SCH ×4 (09:41→21:00)
[2018-01-28] MEDS: SERTRALINE HCL 50 MG TAB PO SCH ×2 (09:41→22:16)
[2018-01-28] MEDS: LANSOPRAZOLE SOLUTAB 30 MG TAB NG SCH (09:41)
[2018-01-28] MEDS: QUEtiapine FUMARATE 25 MG TAB PO SCH ×2 (09:41→22:18)
[2018-01-28] MEDS: DIGOXIN SOLUTION 0.125 MG/2.5 ML CUP PO SCH (09:42)
[2018-01-28] MEDS: POLYETHYLENE GLYCOL 17 GM PKG PO SCH ×2 (09:42→21:00)
[2018-01-28] MEDS: INSULIN DETEMIR 100 UNITS/ML VIAL SQ SCH ×2 (09:45→21:00)
[2018-01-28] MEDS: COLLAGENASE OINT 30 GM TUBE TOPICAL SCH (09:45)
[2018-01-28] MEDS: SODIUM HYPOCHLORITE 0.125% 500 ML BTL TOPICAL SCH (09:46)
[2018-01-28] MEDS: SODIUM CHLORIDE 0.9% FLUSH 10 ML FLUSH IV FLUSH SCH ×2 (09:49→21:00)
[2018-01-28] MEDS: CHLORHEXIDINE 0.12% (ORAL KIT) 15 ML CUP MT SCH ×2 (09:51→20:00)
[2018-01-28] MEDS: INSULIN ASPART SUPPLEMENTAL SCALE SQ SCH ×5 (09:51→21:00)
[2018-01-28] MEDS ORDERED: RESP: ALBUTEROL 2.5 MG/IPRATROPIUM 0.5 MG NEB (PRN) NEB (13:30)
[2018-01-28] MEDS: RESP: ALBUTEROL 2.5 MG/IPRATROPIUM 0.5 MG NEB (SCH) NEB ×2 (15:38→20:58)
[2018-01-28] MEDS: DOXAZOSIN MESYLATE 4 MG TAB PO SCH (22:18)
[2018-01-28] MEDS: ATORVASTATIN 40 MG TAB PO SCH (22:18)
[2018-01-28] MEDS: PRAMIPEXOLE DIHYDROCHLORIDE 0.25 MG TAB PO SCH (22:19)
--- NOTE | 2018-01-28 23:21 | HHI.GIFU ---
Subjective Remarks Patient appears to be comfortable in bed confused Objective Vitals I&O Vital Signs Date Time Temp Pulse Resp B/P (MAP) Pulse Ox O2 Delivery O2 Flow Rate FiO2 01/28/18 20:58 96 Nasal Cannula 2.00 01/28/18 16:00 99 01/28/18 16:00 97.5 115 23 110/82 (91) 93 01/28/18 12:00 97.6 94 20 101/74 (83) 95 01/28/18 12:00 97 01/28/18 09:41 Room Air 01/28/18 08:00 103 01/28/18 08:00 97.3 84 21 134/93 (107) 94 01/28/18 04:15 99.9 116 18 116/70 (85) 93 01/28/18 04:00 103 01/28/18 00:51 98.2 114 18 112/78 (89) 96 01/28/18 00:00 117 01/28/18 00:00 Room Air I/O 01/28/18 01/28/18 01/28/18 01/29/18 01/29/18 01/29/18 07:00 15:00 23:00 07:00 15:00 23:00 Intake Total 999 ml 460 ml Output Total 700 ml 450 ml Balance 299 ml 10 ml IV Total 999 ml 460 ml Output Urine Total 700 ml 450 ml Laboratory Laboratory Tests Test 01/28/18 07:10 Blood Urea Nitrogen 14 Creatinine 1.31 Random Glucose 175 Calcium Level 7.7 Sodium Level 139 Potassium Level 3.3 Chloride Level 107 Carbon Dioxide Level 23.4 Anion Gap 9 Estimat Glomerular Filtration Rate 54 Date/Time Source Procedure Growth Status 01/12/18 10:15 Sputum Endotracheal Gram Stain - Final Complete 01/12/18 10:15 Sputum Culture - Final Escherichia Coli Complete 01/20/18 09:55 Wound Buttock Gram Stain - Final Complete 01/20/18 09:55 Wound Culture - Final Henrietta Albicans Complete Physical Exam HEENT: Normocephalic; atraumatic CHEST: Even/unlabored CARDIAC: RRR ABDOMEN: soft,obese, bowel sounds active SKIN: Normal; no rash; no jaundice. 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 Per RN pt remains confused, he ripped out his IV earlier. Teller Coordinator has not come to sign consent for PEG yet. Eliquis on hold 01/26/18 pt confused. PEG tube placement cancelled, no consent obtained psych consult pending 01/27/18 consent not obtained for PEG. pt is confused. seen again @ 1640, consent obtained PLAN -Apparently there is a family dynamic that is complex and thus far we have been unable to obtain a consent for PEG placement -Not much to add at this point therefore we will sign off -Please reconsult as needed or when consent is obtained for PEG placement Juan Hillman MD Jan 28, 2018 23:21
[2018-01-29] VITALS (12 sets, daily range): BP systolic 102–135; BP diastolic 67–87; PULSE 112–116; RESP 16–22; TEMP 97.7–98.9; O2SAT 94–97
[2018-01-29] MEDS: RESP: ALBUTEROL 2.5 MG/IPRATROPIUM 0.5 MG NEB (SCH) NEB ×4 (04:14→22:31)
[2018-01-29] MEDS: DILTIAZEM HCL 30 MG TAB PO SCH ×5 (04:18→21:09)
[2018-01-29] MEDS: oxyCODONE/ACETAMINOPHEN 5 MG/325 MG TAB PO PRN ×2 (04:19→17:02)
[2018-01-29] MEDS: FREE WATER G-TUBE SCH ×4 (06:00→17:02)
[2018-01-29] MEDS: METOCLOPRAMIDE HCL 10 MG/2 ML VIAL IV PUSH SCH ×3 (06:30→21:56)
[2018-01-29] MEDS: LEVOTHYROXINE SODIUM 125 MCG TAB PO SCH (06:30)
[2018-01-29] MEDS: ERYTHROMYCIN EC 250 MG TABEC PO SCH ×3 (06:30→21:51)
[2018-01-29] MEDS: CHLORHEXIDINE 0.12% (ORAL KIT) 15 ML CUP MT SCH ×3 (08:00→20:00)
[2018-01-29] MEDS: AMIODARONE 200 MG TAB PO SCH ×2 (08:09→08:36)
[2018-01-29] MEDS: ALLOPURINOL 100 MG TAB PO SCH ×2 (08:09→08:37)
[2018-01-29] MEDS: DOCUSATE SODIUM 50 MG/SENNA 8.6 MG TAB PO SCH ×3 (08:09→21:09)
[2018-01-29] MEDS: QUEtiapine FUMARATE 25 MG TAB PO SCH ×3 (08:09→21:09)
[2018-01-29] MEDS: LACTULOSE SYRUP 20 GM/30 ML CUP PO SCH ×5 (08:10→21:09)
[2018-01-29] MEDS: SODIUM CHLORIDE 0.9% FLUSH 10 ML FLUSH IV FLUSH SCH ×2 (08:10→21:51)
[2018-01-29] MEDS: LANSOPRAZOLE SOLUTAB 30 MG TAB NG SCH ×2 (08:10→08:36)
[2018-01-29] MEDS: SERTRALINE HCL 50 MG TAB PO SCH ×3 (08:10→21:09)
[2018-01-29] MEDS: BETHANECHOL CHL 25 MG TAB PO SCH ×2 (08:10→08:37)
[2018-01-29] MEDS: POLYETHYLENE GLYCOL 17 GM PKG PO SCH ×3 (08:10→21:09)
[2018-01-29] MEDS: SODIUM HYPOCHLORITE 0.125% 500 ML BTL TOPICAL SCH (08:12)
[2018-01-29] MEDS: INSULIN DETEMIR 100 UNITS/ML VIAL SQ SCH ×3 (08:13→21:51)
[2018-01-29] MEDS: COLLAGENASE OINT 30 GM TUBE TOPICAL SCH (08:13)
[2018-01-29] MEDS: INSULIN ASPART SUPPLEMENTAL SCALE SQ SCH ×4 (08:25→21:51)
[2018-01-29] MEDS: DIGOXIN SOLUTION 0.125 MG/2.5 ML CUP PO SCH ×2 (08:25→08:37)
[2018-01-29] MEDS ORDERED: LIDOCAINE HCL 1% PF 5 ML SYRINGE OTHER ONE (12:00)
[2018-01-29] MEDS ORDERED: PROPOFOL 200 MG/20 ML AMP IV ONE (12:00)
[2018-01-29] MEDS ORDERED: VANCOMYCIN HCL 1000 MG VIAL ONE (13:48)
[2018-01-29] MEDS ORDERED: SODIUM CHLOR 0.9% 250 ML INJ 250 ML ONE (13:53)
--- NOTE | 2018-01-29 14:54 | HHI.PR ---
Subjective Remarks seen after PEG placement- tolerated well Objective Vitals Vital Signs Date Time Temp Pulse Resp B/P (MAP) Pulse Ox O2 Delivery O2 Flow Rate FiO2 01/29/18 12:00 114 01/29/18 09:46 95 Nasal Cannula 2.00 01/29/18 08:00 Nasal Cannula 2.00 21 01/29/18 08:00 97.7 113 22 102/67 (79) 96 01/29/18 08:00 113 01/29/18 05:56 98.9 113 20 121/77 (92) 94 01/29/18 04:16 97 Nasal Cannula 2.00 01/29/18 04:00 115 01/29/18 00:00 114 01/29/18 00:00 98.5 116 18 135/87 (103) 97 01/28/18 20:58 96 Nasal Cannula 2.00 01/28/18 20:00 94 Nasal Cannula 2.00 01/28/18 20:00 97.6 112 20 133/85 (101) 94 01/28/18 20:00 98 01/28/18 16:00 99 01/28/18 16:00 97.5 115 23 110/82 (91) 93 I/O 01/28/18 01/28/18 01/28/18 01/29/18 01/29/18 01/29/18 07:00 15:00 23:00 07:00 15:00 23:00 Intake Total 999 ml 460 ml Output Total 700 ml 450 ml 250 ml Balance 299 ml 10 ml -250 ml IV Total 999 ml 460 ml Output Urine Total 700 ml 450 ml 250 ml Result Diagram: 01/26/18 0540 01/28/18 0710 Imaging Last Impressions Chest X-Ray 01/14/18 0000 Signed Impressions: Service Date/Time: Sunday, January 14, 2018 07:34 - CONCLUSION: Increasing interstitial edema otherwise stable. Tee Jimenes MD FACR Abdomen X-Ray 01/07/18 0600 Signed Impressions: Service Date/Time: Sunday, January 07, 2018 04:29 - CONCLUSION: Possible slight interval improvement in gaseous distention of bowel Lito Adkins MD Abdomen/Pelvis CT 01/04/18 0000 Signed Impressions: Service Date/Time: Thursday, January 04, 2018 10:34 - CONCLUSION: 1. Abnormal bowel gas pattern most characteristic of an ileus. There is a small amount of ascitic fluid in right paracolic gutter and pelvis. 2. Bilateral pleural effusions right greater than left with consolidation in both posterior lung bases. 3. Nasogastric tube in place with the tip in the proximal duodenum. 4. Mild diverticulosis. John Neville MD Renal Ultrasound 01/01/18 0000 Signed Impressions: Service Date/Time: December 18:16 - CONCLUSION: 1. No evidence of hydronephrosis. 2. No new or significant changes compared to the prior exam 3. 2.2 cm right renal cyst. Luiz Frey MD Objective Remarks awake and alert, ff commands, stazted his name, "[facility]" anicteric dry oral mucosa no nuchal rigidity decrease breath sounds, no wheezes regular rhythm abdomen soft, good bowel sounds, no guarding condom catheter in place extremities trace pretibial edema Procedures 01/29- PEG placement A/P Problem List: (1) Acute on chronic systolic CHF (congestive heart failure) ICD Code: I50.23 - Acute on chronic systolic (congestive) heart failure (2) PAF (paroxysmal atrial fibrillation) ICD Code: I48.0 - Paroxysmal atrial fibrillation (3) Acute kidney injury superimposed on chronic kidney disease ICD Code: N17.9 - Acute kidney failure, unspecified; N18.9 - Chronic kidney disease, unspecified (4) Hypothyroidism ICD Code: E03.9 - Hypothyroidism Status: Acute (5) Diabetes ICD Code: E11.9 - Diabetes Status: Chronic (6) Hyperkalemia ICD Code: E87.5 - Hyperkalemia Status: Acute Assessment and Plan This is a pleasant 72 y/o male with Atrial Fibrillation with RVR, underwent Cardiac Ablation, developed respiratory failure and was postoperatively intubated, was in Intensive care unit, Status post PEA arrest. Concern for aspiration event. Patient was extubated. Prolonged ICU course. He has been downgraded to the floor. Patient with profound encephalopathy, confused, ? anoxic injury. Not cooperating with treatment. not eating or drinking enough, may need PEG tube placement, palliative care ff Acute hypoxic and hypercarbic respiratory failure MUNA -nocturnal CPAP 8 cm H2O Moderate right pleural effusion Extubated 01/02. reintubated 01/07 during PEA arrest, extubated again 01/12/18 wean fio2 for goal spo2 > 90% Nebs as needed EzPAP, Acapella Chronic diastolic heart failure, with exacerbation ejection fraction 45-50% recurrent atrial fibrillation with rapid ventricular response s/p PEA arrest 01/07 Status post ablation for A. fib/flutter Hypertension Dyslipidemia Chronic apixaban use Normocytic normochromic anemia Currently renally dose of 2.5 mg twice daily- on hold for PEg and patient refusing po meds Monitor CBC daily. Follow trends Continue amiodarone 200 mg by mouth daily Received IV digoxin and IV metoprolol 01/14 digoxin 0.125 mg p.o. daily Increase Cardizem 60 mg p.o. every 6 hours. Holding diltiazem 240 mg p.o. daily/ home medication Continue atorvastatin 40 mg p.o. daily for his lipidemia At home on fish oil/cholecalciferol 1200/1000 1 tablet twice daily/home medication Holding ramipril 5 mg p.o. daily for hypertension with acute kidney injury Dr. Ramirez evaluated no further plans at this time Encephalopathy,? Anoxic injury:- today more awake Depression/anxiety Chronic narcotic use continue sertraline 50 mg twice daily/home medication for depression Continue pramipexole 0.5 mg p.o. daily for extrapyramidal side effects Currently holding buspirone 5 mg 3 times daily anxiety On oxycodone/acetaminophen 5/325 1 - 2 tablets every 4 hours as needed pain PT/OT/speech Gastroesophageal reflux disease Elevated transaminases Ileus Sigmoid diverticulosis Internal/external hemorrhoids S/ PEG 01/29 Advance diet per speech therapy recommendations. Not tolerating enough p.o. nutrition yet. Docusate sodium/senna 1 tablet twice daily for bowel regimen with polyethylene glycol 17 g twice daily and lactulose 30 cc 4 times daily Follow transaminases intermittently is likely congestion. Further workup and On metoclopramide 5 mg IV every 8 hours and erythromycin [address] abdomen/pelvis revealed dilated small and large bowel. Colonoscopy by Dr. Bella/revealed sigmoid diverticulosis. Decompression of colon. Internal and external hemorrhoids. tube feedings ordered- dietitian consult BPH/overflow Continue doxazosin 4 mg daily and bethanechol 25 mg daily Diabetes mellitus Hypothyroidism Low testosterone Currently on insulin detemir 4 units twice daily with NovoLog sliding scale insulin/low regimen before meals at bedtime At home on insulin glargine 12 units twice daily with sliding scale insulin Continue levothyroxine 125 mcg p.o. daily. TSH 3.06 Holding testosterone Even some uncontrolled blood sugar the patient is not eating will wait for PEG tube placement. Acute kidney injury likely secondary to cardiorenal syndrome Renal cyst right 2.2 cm Followed by nephrology. Monitor urine output Accurate I's and O's. stable Renal ultrasound with no hydronephrosis. Right renal cyst 2.2 cm. Rare eosinophils urine. Debility: - Secondary to comorbid conditions above. Patient will need SNF placement. Continue rehab efforts. Overall Poor short term prognosis. Prophylaxis -GI -Lansoprazole -DVT -SCD/apixaban Discharge Planning awaiting final by Palliative care probable on Friday today the Caregiver won't be able to come during the discharge Hours Micheal Adame MD Jan 29, 2018 14:54
[2018-01-29] MEDS: DEXTROSE 5%-NACL 0.225% INJ 1,000 ML IV SCH (17:05)
--- NOTE | 2018-01-29 19:36 | PD.PROCEDR ---
GI Procedure PROCEDURE PERFORMED EGD with PEG tube placement INDICATION FOR PROCEDURE Dysphagia, poor oral intake PROCEDURE: The procedure, risks and benefits were discussed with Patient/POA and informed consent was obtained. Anesthesia sedated Patient with Diprivan. Patient was placed in the left lateral decubitus position. EGD: The Pentax videoscope was introduced through the oropharynx and advanced to the second portion of the duodenum under direct visualization. Retroflexion was performed in the stomach. FINDINGS: The esophagus this appeared to be unremarkable and within normal limits The stomach there were several small benign appearing polypoid lesions in the gastric body otherwise the gastric mucosa was unremarkable and within normal limits The duodenum this was normal Following the evaluation of the stomach and the duodenum the stomach was insufflated with air and the area of PEG placement was identified through indentation and transillumination the area was prepped and draped in usual fashion 5 cc of lidocaine were injected locally a small incision was made then an Angiocath was passed into the stomach through which a guidewire was passed this was retrieved with the scope into that a PEG tube was attached and pulled into place and thereafter secured in usual fashion The patient tolerated procedure well and there are no immediate complications ESTIMATED BLOOD LOSS: None SPECIMENS REMOVED: None COMPLICATIONS: None IMPRESSION: Gastric polyps Successful PEG placement PLAN: 1. May use PEG tube for medications today 2. May start feeding tomorrow 3. May obtain nutritional consult for tube feeding 4. Flush tube with 50 cc of water every 4-6 hours 5. Always flush tube after feedings 6. Apply abdominal binder as necessary 7. Clamp G-tube after use and flush. Juan Hillman MD Jan 29, 2018 19:36
[2018-01-29] MEDS: ATORVASTATIN 40 MG TAB PO SCH (21:09)
[2018-01-29] MEDS: DOXAZOSIN MESYLATE 4 MG TAB PO SCH (21:09)
[2018-01-29] MEDS: PRAMIPEXOLE DIHYDROCHLORIDE 0.25 MG TAB PO SCH (21:09)
[2018-01-30] VITALS (9 sets, daily range): BP systolic 112–136; BP diastolic 70–87; PULSE 110–114; RESP 18–20; TEMP 97.4–98.9; O2SAT 95–97
[2018-01-30] MEDS: DILTIAZEM HCL 30 MG TAB PO SCH ×4 (03:10→20:54)
[2018-01-30] MEDS: RESP: ALBUTEROL 2.5 MG/IPRATROPIUM 0.5 MG NEB (SCH) NEB ×4 (03:34→22:26)
[2018-01-30] MEDS: ERYTHROMYCIN EC 250 MG TABEC PO SCH ×3 (06:00→20:54)
[2018-01-30] MEDS: FREE WATER G-TUBE SCH ×4 (06:00→16:07)
[2018-01-30] MEDS: LEVOTHYROXINE SODIUM 125 MCG TAB PO SCH (06:30)
[2018-01-30] MEDS: METOCLOPRAMIDE HCL 10 MG/2 ML VIAL IV PUSH SCH ×3 (06:31→20:55)
[2018-01-30] MEDS: oxyCODONE/ACETAMINOPHEN 5 MG/325 MG TAB PO PRN ×3 (06:31→20:53)
[2018-01-30] MEDS: DEXTROSE 5%-NACL 0.225% INJ 1,000 ML IV SCH (07:50)
[2018-01-30] MEDS: CHLORHEXIDINE 0.12% (ORAL KIT) 15 ML CUP MT SCH ×2 (07:56→21:06)
[2018-01-30] MEDS: INSULIN ASPART SUPPLEMENTAL SCALE SQ SCH ×4 (08:00→22:50)
[2018-01-30] MEDS: SODIUM CHLORIDE 0.9% FLUSH 10 ML FLUSH IV FLUSH SCH ×2 (08:50→20:55)
[2018-01-30] MEDS: POLYETHYLENE GLYCOL 17 GM PKG PO SCH ×2 (08:51→21:10)
[2018-01-30] MEDS: LACTULOSE SYRUP 20 GM/30 ML CUP PO SCH ×4 (08:52→20:55)
[2018-01-30] MEDS: QUEtiapine FUMARATE 25 MG TAB PO SCH ×2 (08:52→20:54)
[2018-01-30] MEDS: DIGOXIN SOLUTION 0.125 MG/2.5 ML CUP PO SCH (08:52)
[2018-01-30] MEDS: AMIODARONE 200 MG TAB PO SCH (08:52)
[2018-01-30] MEDS: BETHANECHOL CHL 25 MG TAB PO SCH (08:52)
[2018-01-30] MEDS: SERTRALINE HCL 50 MG TAB PO SCH ×2 (08:52→20:54)
[2018-01-30] MEDS: LANSOPRAZOLE SOLUTAB 30 MG TAB NG SCH (08:52)
[2018-01-30] MEDS: DOCUSATE SODIUM 50 MG/SENNA 8.6 MG TAB PO SCH ×2 (08:52→20:54)
[2018-01-30] MEDS: INSULIN DETEMIR 100 UNITS/ML VIAL SQ SCH ×2 (08:53→22:49)
[2018-01-30] MEDS: SODIUM HYPOCHLORITE 0.125% 500 ML BTL TOPICAL SCH (08:56)
[2018-01-30] MEDS: ALLOPURINOL 100 MG TAB PO SCH (08:56)
[2018-01-30] MEDS: COLLAGENASE OINT 30 GM TUBE TOPICAL SCH (08:57)
--- NOTE | 2018-01-30 11:37 | PD.WCN.NOT ---
Wound Consult Description: Follow up of wound to coccyx, bilateral buttocks. Communicated with: KELLIE Fine Recommendation: Daily: 1. Cleanse wound to coccyx, R inner buttock and L inner buttock with normal saline only and pat dry., 2. Apply Santyl to Dakin's 0.125% moistened fluffed gauze and pack loosely to coccyx wound bed. 3. Apply Calazime skin protectant paste to bilateral buttocks and periwound of coccyx. 4. Secure Maxorb/Dakins moistened gauze dressing with ABD pad and medfix tape. 5. Change dressing daily 6. Please keep patient turned and repositioned every 2 hours from left to right and PRN for comfort limiting time spent on back for therapies only. Additional Information: Patient seen on with RN at bedside providing premedication via peg tube for quality analyst/technical writer visualization of wounds. 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 Medfix tape, abd pads, Maxorb II, and quarter strength dakins gauze removed from wound to reveal a full thickness coccyx Stage IV pressure injury with ~70% muscle tissue , ~15% fascia, and ~15% friable necrotic holl[place]worth tissue. Wound was cleansed with NS and gauze with patient withdrawing/stating pain. Wound measured 4.8cm x 4.5cm x 3.2cm with mild odor and no active drainage noted. Wound is moist with open wound margins, macerated periwound, with slow blanching bright red erythema. Bilateral buttock wounds are ~1.5 cm x 1cm x ~1cm full thickness with ~60% pink tissue and ~20% adipose tissue and ~20% white tissue with jagged wound margins and slow to jeannette periwound of erythema. Santyl was applied to Quarter strength Dakins moistened gauze and lightly fluffed and gently placed in wound bed with Maxorb II placed over gauze inside wound. Periwound was slathered in Calazime skin protectant and Cavilon skin barrier film spray and covered with a dry cover. During assessment, Palliative Care, Yolk Spray Drier, and Vascular Access visited patient. Gracy Gasca [facility] Jan 30, 2018 11:37
[2018-01-30] MEDS: JUVEN POWDER 1 PACK G-TUBE SCH ×2 (12:00→21:00)
--- NOTE | 2018-01-30 12:02 | HHI.HCPN ---
Reason for visit a. To assist with evaluation and management of symptoms including: Encephalopathy, dyspnea, dysphasia, agitation, pain b. To assist medical decision maker(s) with: better understanding of current medical conditions; weighing benefits/burdens of medical treatment options; making medical treatment decisions. . Subjective/Interval History Patient is a 72-year-old male with CHF, atrial tachycardia and atrial fibrillation who was admitted with tachyarrhythmia. Patient underwent cardiac ablation; he was intubated postoperatively secondary to respiratory failure. Status post PEA arrest and prolonged ICU course. Follow up visit for symptom management of encephalopathy, dyspnea, agitation, dysphagia and pain. Patient seen and assessed in room 1432. Also present, occupational therapist and RN. Wound care nurse was present for a portion of the visit as well. Patient remains confused and has pulled out his IV again. Psychiatry was consulted for recommendations for symptom management of agitation;currently on Seroquel and Zoloft. Patient moaning, indicating his has pain in his buttocks. Per notes, patient has a stage IV and stage III pressure injuries on the coccyx and inner buttocks bilaterally. Wound culture from 01/20/2018 + curt albicans. Per nursing report, patient has been experiencing moderate-severe pain described as aching. PRN Percocet is available every 4 hours as needed, but the patient is refusing most PO medications. 24 hour PRN dosing = 2 tablets 3. Patient denies dyspnea, however appears short of breath. Oxygen saturation stable on 2L via nasal cannula. On scheduled and PRN DuoNeb's no recent imaging available. Labwork from today 01/30/2018 reviewed: == Sodium 136, potassium 3.5, chloride 102, carbon dioxide 23.2, glucose 218, calcium 7.8, phosphorus 3.0, magnesium 1.5 == BUN: 17, creatinine 1.58, GFR 43 == Total bilirubin: 0.8, AST 28, ALT 32, alkaline phosphatase 108 == Total protein: 5.7, albumin 1.8 Over the course of this hospitalization, documented EMR weight loss is 28.3 kg and the patient intake was poor, unable to administer medications. Status post PEG tube placement 01/29/2018. Dietary was consulted for recommendations. TF started at 20 mL's per hour; increase by 10ml q8 hours if electrolytes WNL. Dietary also recommended Jose Alfredo BID for wound healing. Family/friends have expressed ongoing aggressive goals. Patient will need SNF placement upon discharge; case management has made a referrals to [facility]. . Family/friend interactions Phone call placed to patient's friend/caregiver, Corinna. There was no answer and a message was left on her voicemail. Awaiting return phone call. . Advance Directives Living Will: Never completed Health Care Surrogate: Never completed Durable Power of Tech Ed/Woodshop Teacher: Never completed Objective Vital Signs Date Time Temp Pulse Resp B/P (MAP) Pulse Ox O2 Delivery O2 Flow Rate FiO2 01/30/18 09:55 Nasal Cannula 2.00 01/30/18 09:40 96 Nasal Cannula 3.00 01/30/18 08:00 97.6 110 20 119/85 (96) 96 01/30/18 03:44 114 01/30/18 03:12 98.0 114 18 134/81 (98) 96 01/30/18 00:00 98.9 114 20 112/70 (84) 97 01/29/18 23:45 114 01/29/18 22:35 95 Nasal Cannula 2.00 01/29/18 21:24 98.5 112 16 121/82 (95) 95 01/29/18 20:00 94 Nasal Cannula 2.00 01/29/18 19:50 112 01/29/18 16:00 98.4 113 22 114/75 (88) 94 01/29/18 15:18 98.1 109 18 100/64 (76) 97 01/29/18 12:00 114 01/29/18 12:00 98.3 115 22 109/72 (84) 97 Intake & Output 01/30/18 01/30/18 07:00 19:00 Intake Total 0 ml Output Total 325 ml Balance -325 ml Intake Oral 0 ml Output Urine Total 325 ml # Bowel Movements 0 . Physical Exam CONSTITUTIONAL/GENERAL: This is a confused, elderly male in no acute distress. TUBES/LINES/DRAINS: Condom catheter SKIN: No jaundice, rashes, or lesions. Ecchymosis to upper extremities. Skin warm and dry. Generalized pallor. HEAD: Atraumatic. Normocephalic. EYES: Pupils equal and round and reactive. Extraocular motions intact. No scleral icterus. No injection or drainage. Fundi not examined. ENT: Nose without bleeding or purulent drainage. Poor dentition. Oral mucosa dry. NECK: Trachea midline. Supple, nontender. No palpable thyroid enlargement or nodularity. CARDIOVASCULAR: Irregular rate and rhythm. No murmur. No JVD. Peripheral pulses symmetric. RESPIRATORY/CHEST: Symmetric, unlabored respirations. Breath sounds diminished bilaterally with some upper airway congestions noted. GASTROINTESTINAL: Abdomen soft, round/obese, non-tender, nondistended. No hepato -splenomegaly, or palpable masses. No guarding. Bowel sounds normoactive. GENITOURINARY: Without palpable bladder distension. Condom catheter MUSCULOSKELETAL: Extremities without clubbing, cyanosis, or edema. NEUROLOGICAL: Awake; confused. Responds to simple question with brief answers; follows simple commands. GONSALEZ x 4; generalized weakness. PSYCHIATRIC: Somewhat flat, lethargic, confused. Intermittently agitated. Difficult to assess given clinical condition. . Diagnostic Tests Laboratory Laboratory Tests Test 01/27/18 12:05 01/28/18 07:10 Blood Urea Nitrogen 15 MG/DL (7-18) 14 MG/DL (7-18) Creatinine 1.46 MG/DL (0.60-1.30) 1.31 MG/DL (0.60-1.30) Random Glucose 269 MG/DL (74-106) 175 MG/DL (74-106) Calcium Level 7.7 MG/DL (8.5-10.1) 7.7 MG/DL (8.5-10.1) Sodium Level 138 MEQ/L (136-145) 139 MEQ/L (136-145) Potassium Level 3.5 MEQ/L (3.5-5.1) 3.3 MEQ/L (3.5-5.1) Chloride Level 106 MEQ/L (98-107) 107 MEQ/L (98-107) Carbon Dioxide Level 22.6 MEQ/L (21.0-32.0) 23.4 MEQ/L (21.0-32.0) Anion Gap 9 MEQ/L (5-15) 9 MEQ/L (5-15) Estimat Glomerular Filtration Rate 47 ML/MIN (>89) 54 ML/MIN (>89) . Result Diagram: 01/26/18 0540 01/28/18 0710 Procedures 01/02/2018: Extubated postprocedure 01/06/2018: Decompressive colonoscopy 01/07/2018: Reintubated during PEA arrest 01/12/2018: Extubated 01/29/2018: EGD/PEG . Assessment and Plan Disease Oriented Problem List: (1) Acute on chronic systolic CHF (congestive heart failure) (2) CKD (chronic kidney disease) stage 3, GFR 30-59 ml/min (3) PAF (paroxysmal atrial fibrillation) (4) Hypothyroidism (5) Elevated troponin (6) Diabetes (7) Acute kidney injury superimposed on chronic kidney disease (8) Hypertension (9) Hyperlipidemia (10) Ileus Symptom Scale: (1) Dysphagia 0-10 Scale: Unable to quantify Comment: s/p EGD with PEG tube placement 01/29/18. (2) Dyspnea 0-10 Scale: Unable to quantify (3) Encephalopathy 0-10 Scale: Unable to quantify (4) Agitation 0-10 Scale: Unable to quantify (5) Pain 0-10 Scale: Unable to quantify Comment: Pain secondary to wounds on coccyx and inner buttocks bilaterally Pertinent Non-Medical Issues Psychosocial:Patient originally from [place], moved to [place] for residential. Live-in caregiver has assisted him for about the past 5 years. She indicates he just before she started caring for him. She is not aware of any other family except for a cousin [facility]. ex 's name is Olivia Otto. Retired, caregiver not certain what type of work he did prior to residential. Spiritual: Anabaptist kianna, will probably want boiler shop mechanic visits Legal:Patient is not currently able to make his own decisions due to confusion, medical conditions. Patient's hired caregiver, Corinna Sherry, stated she would be willing to act in the role of healthcare proxy s/p accurints report that did not identify any family members who were willing to act in the role of health care proxy decision maker. Ethical issues impacting care: No ethical issues identified at this time. . Important Contacts Corinna Powell [phone] / [phone] . Prognosis This patient has had multiple recent hospitalizations for cardiac conditions with some respiratory complications. He has been intubated twice this admission. He also suffered an ileus. Due to advanced age and multiple chronic medical conditions he does remain at risk for ongoing complications and potential setbacks. He may require rehabilitation following this acute hospitalization. . Code Status: Full Code (By default) Plan * FULL CODE by default * Patient's hired caregiver, Corinna Powell, stated she would be willing to act in the role of healthcare proxy s/p accurints report that did not identify any family members who were willing to act in the role of health care proxy decision maker. * AGGRESSIVE GOALS * Discussed current medical treatment goals with RN (Rody) and telephonic nurse case manager ( Maycol) * SYMPTOMS: --Dyspnea: Patient reported with chronic dyspnea and orthopnea. He has had episodes of heart failure and atrial fibrillation contributing to this. Status post medical extubation 2 this admission. Concern for aspiration. Patient denies dyspnea. On scheduled and PRN nebulizer treatments --Dysphagia: Oral intake has been inadequate; refusing medication. Over the course of this hospitalization, documented EMR weight loss is 28.3 kg. Status post EGD/PEG tube placement. Dietary was consulted for recommendations. TF started at 20 mL's per hour ; increase by 10ml q8 hours if electrolytes WNL. Dietary also recommended Jose Alfredo BID for wound healing. --Encephalopathy: Status post PEA arrest 01/06 with ROSC after about 10 minutes. Reported he was cognitively sharp prior to admission per caregiver though prior H&P's do note at times poor historian. Caregiver reports he was paying his own bills prior to this admission. Concern for anoxic injury. --Agitation: Patient pulled put NGT as well as IV access, requiring nonviolent restraints to prevent disruption of care. Unable to reorient patient. Psychiatry was consulted. Patient is currently on Seroquel and Zoloft. --Pain: Patient reporting pain in his buttocks, likely secondary to pressure wounds. Wound culture + Curt albicans. Pain is exacerbated by repositioning and care. Recommendations to position patient off buttocks as much as possible and utilize PRN percocet prior to care. 24 hour PRN requirements = 2 tablets (5-325mg/tab) x 3. Palliative care will continue to follow during hospital course as condition evolves, to assist patient/decision-maker with understanding of medical conditions, weighing benefits/burdens of treatment options, for clarification of goals of treatment. Additionally will assist with any symptoms of palliative concern. . Attestation To help prompt me to consider important information that might be impacting today's encounter and assessment, information from prior notes written by myself or my colleagues may have been "brought forward" into today's note. My signature on this note, however, is an attestation that I personally performed the exam, history, and/or decision-making noted today, and, unless otherwise indicated, the interactions with patient, family, and staff as well as the review of records all occurred today. I also attest that the listed assessment and stated plan reflect my best clinical judgment today based on the combination of historical information, prior notes, and today's exam/ interactions. When time spent is documented, it refers only to time spent today by the signer, or if indicated, combined time spent today by collaborating physician/nurse practitioner. . Sadie Lyon Jan 30, 2018 12:02
[2018-01-30 12:46] LABS: ALBUMIN 1.8 GM/DL (3.4-5.0); ALT (GPT) 32 U/L (12-78); AST (GOT) 28 U/L (15-37); BICARBONATE 23.2 MEQ/L (21.0-32.0); BLOOD UREA NITROGEN 17 MG/DL (7-18); CALCIUM 7.8 MG/DL (8.5-10.1); CHLORIDE 102 MEQ/L (98-107); CREATININE 1.58 MG/DL (0.60-1.30); GLOMERULAR FILTRATION RATE 43 ML/MIN (>89); GLUCOSE,RANDOM 218 MG/DL (74-106); MAGNESIUM 1.5 MG/DL (1.5-2.5); SODIUM (NA) 136 MEQ/L (136-145)
[2018-01-30 12:48] LABS: ALKALINE PHOSPHATASE 108 U/L (45-117); TOTAL BILIRUBIN ADULT 0.6 MG/DL (0.2-1.0); TOTAL PROTEIN 5.7 GM/DL (6.4-8.2)
--- NOTE | 2018-01-30 14:42 | HHI.PR ---
Subjective Remarks awake, appears uncomfortable- back discomfort voiding Objective Vitals Vital Signs Date Time Temp Pulse Resp B/P (MAP) Pulse Ox O2 Delivery O2 Flow Rate FiO2 01/30/18 12:00 98.0 110 20 113/87 (96) 96 01/30/18 12:00 111 01/30/18 09:55 Nasal Cannula 2.00 01/30/18 09:40 96 Nasal Cannula 3.00 01/30/18 08:00 97.6 110 20 119/85 (96) 96 01/30/18 08:00 112 01/30/18 03:44 114 01/30/18 03:12 98.0 114 18 134/81 (98) 96 01/30/18 00:00 98.9 114 20 112/70 (84) 97 01/29/18 23:45 114 01/29/18 22:35 95 Nasal Cannula 2.00 01/29/18 21:24 98.5 112 16 121/82 (95) 95 01/29/18 20:00 94 Nasal Cannula 2.00 01/29/18 19:50 112 01/29/18 16:00 98.4 113 22 114/75 (88) 94 01/29/18 15:18 98.1 109 18 100/64 (76) 97 I/O 01/29/18 01/29/18 01/29/18 01/30/18 01/30/18 01/30/18 07:00 15:00 23:00 07:00 15:00 23:00 Intake Total 100 ml 0 ml Output Total 250 ml 200 ml 325 ml Balance -250 ml 100 ml -200 ml -325 ml Intake Oral 0 ml Other 100 ml Output Urine Total 250 ml 200 ml 325 ml # Bowel Movements 0 Result Diagram: 01/26/18 0540 01/30/18 1154 Imaging Last Impressions Chest X-Ray 01/14/18 0000 Signed Impressions: Service Date/Time: Sunday, January 14, 2018 07:34 - CONCLUSION: Increasing interstitial edema otherwise stable. Tee Jimenes MD FACR Abdomen X-Ray 01/07/18 0600 Signed Impressions: Service Date/Time: Sunday, January 07, 2018 04:29 - CONCLUSION: Possible slight interval improvement in gaseous distention of bowel Lito Adkins MD Abdomen/Pelvis CT 01/04/18 0000 Signed Impressions: Service Date/Time: Thursday, January 04, 2018 10:34 - CONCLUSION: 1. Abnormal bowel gas pattern most characteristic of an ileus. There is a small amount of ascitic fluid in right paracolic gutter and pelvis. 2. Bilateral pleural effusions right greater than left with consolidation in both posterior lung bases. 3. Nasogastric tube in place with the tip in the proximal duodenum. 4. Mild diverticulosis. John Neville MD Renal Ultrasound 01/01/18 0000 Signed Impressions: Service Date/Time: December 18:16 - CONCLUSION: 1. No evidence of hydronephrosis. 2. No new or significant changes compared to the prior exam 3. 2.2 cm right renal cyst. Luiz Frey MD Objective Remarks awake and alert, ff commands, stazted his name, "[facility]" anicteric dry oral mucosa no nuchal rigidity decrease breath sounds, no wheezes regular rhythm abdomen soft, good bowel sounds, no guarding. PEG in place condom catheter in place extremities trace pretibial edema Procedures 01/29- PEG placement A/P Problem List: (1) Acute on chronic systolic CHF (congestive heart failure) ICD Code: I50.23 - Acute on chronic systolic (congestive) heart failure (2) PAF (paroxysmal atrial fibrillation) ICD Code: I48.0 - Paroxysmal atrial fibrillation (3) Acute kidney injury superimposed on chronic kidney disease ICD Code: N17.9 - Acute kidney failure, unspecified; N18.9 - Chronic kidney disease, unspecified (4) Hypothyroidism ICD Code: E03.9 - Hypothyroidism Status: Acute (5) Diabetes ICD Code: E11.9 - Diabetes Status: Chronic (6) Hyperkalemia ICD Code: E87.5 - Hyperkalemia Status: Acute Assessment and Plan This is a pleasant 72 y/o male with Atrial Fibrillation with RVR, underwent Cardiac Ablation, developed respiratory failure and was postoperatively intubated, was in Intensive care unit, Status post PEA arrest. Concern for aspiration event. Patient was extubated. Prolonged ICU course. He has been downgraded to the floor. Patient with profound encephalopathy, confused, ? anoxic injury. Not cooperating with treatment. not eating or drinking enough, may need PEG tube placement, palliative care ff Acute hypoxic and hypercarbic respiratory failure MUNA -nocturnal CPAP 8 cm H2O Moderate right pleural effusion Extubated 01/02. reintubated 01/07 during PEA arrest, extubated again 01/12/18 wean fio2 for goal spo2 > 90% Nebs as needed EzPAP, Acapella Chronic diastolic heart failure, with exacerbation ejection fraction 45-50% recurrent atrial fibrillation with rapid ventricular response s/p PEA arrest 01/07 Status post ablation for A. fib/flutter Hypertension Dyslipidemia Chronic apixaban use Normocytic normochromic anemia Currently renally dose of 2.5 mg twice daily- on hold for PEg and patient refusing po meds Monitor CBC daily. Follow trends Continue amiodarone 200 mg by mouth daily Received IV digoxin and IV metoprolol 01/14 digoxin 0.125 mg p.o. daily Increase Cardizem 60 mg p.o. every 6 hours. Holding diltiazem 240 mg p.o. daily/ home medication. ADD BB for additional rate control- Lopressor 12.5 mg /GT q 8 Continue atorvastatin 40 mg p.o. daily for his lipidemia At home on fish oil/cholecalciferol 1200/1000 1 tablet twice daily/home medication Holding ramipril 5 mg p.o. daily for hypertension with acute kidney injury Dr. Ramirez evaluated no further plans at this time Encephalopathy,? Anoxic injury:- today more awake Depression/anxiety Chronic narcotic use continue sertraline 50 mg twice daily/home medication for depression Continue pramipexole 0.5 mg p.o. daily for extrapyramidal side effects Currently holding buspirone 5 mg 3 times daily anxiety On oxycodone/acetaminophen 5/325 1 - 2 tablets every 4 hours as needed pain PT/OT/speech Gastroesophageal reflux disease Elevated transaminases Ileus Sigmoid diverticulosis Internal/external hemorrhoids S/ PEG 01/29 Advance diet per speech therapy recommendations. Not tolerating enough p.o. nutrition yet. Docusate sodium/senna 1 tablet twice daily for bowel regimen with polyethylene glycol 17 g twice daily and lactulose 30 cc 4 times daily Follow transaminases intermittently is likely congestion. Further workup and On metoclopramide 5 mg IV every 8 hours and erythromycin [address] abdomen/pelvis revealed dilated small and large bowel. Colonoscopy by Dr. Bella/revealed sigmoid diverticulosis. Decompression of colon. Internal and external hemorrhoids. tube feedings ordered- dietitian consult BPH/overflow Continue doxazosin 4 mg daily and bethanechol 25 mg daily Diabetes mellitus Hypothyroidism Low testosterone Currently on insulin detemir 4 units twice daily with NovoLog sliding scale insulin/low regimen before meals at bedtime At home on insulin glargine 12 units twice daily with sliding scale insulin Continue levothyroxine 125 mcg p.o. daily. TSH 3.06 Holding testosterone Even some uncontrolled blood sugar the patient is not eating will wait for PEG tube placement. Acute kidney injury likely secondary to cardiorenal syndrome Renal cyst right 2.2 cm Followed by nephrology. Monitor urine output Accurate I's and O's. stable Renal ultrasound with no hydronephrosis. Right renal cyst 2.2 cm. Rare eosinophils urine. Debility: - Secondary to comorbid conditions above. Patient will need SNF placement. Continue rehab efforts. Overall Poor short term prognosis. Prophylaxis -GI -Lansoprazole -DVT -SCD/apixaban Discharge Planning awaiting final by Palliative care probable on Friday today the Caregiver won't be able to come during the discharge Hours Micheal Adame MD Jan 30, 2018 14:42
[2018-01-30] MEDS ORDERED: MAGNESIUM OXIDE 400 MG TAB G-TUBE ONE (16:15)
[2018-01-30] MEDS ORDERED: POTASSIUM CHLORIDE 25 MEQ EFFERVESCENT TAB G-TUBE ONE (16:15)
[2018-01-30] MEDS: DOXAZOSIN MESYLATE 4 MG TAB PO SCH (20:54)
[2018-01-30] MEDS: PRAMIPEXOLE DIHYDROCHLORIDE 0.25 MG TAB PO SCH (20:54)
[2018-01-30] MEDS: METOPROLOL TARTRATE 25 MG TAB PO SCH (20:54)
[2018-01-30] MEDS: ATORVASTATIN 40 MG TAB PO SCH (20:54)
[2018-01-30] MEDS: APIXABAN 2.5 MG TABLET PO SCH (22:49)
[2018-01-31] VITALS (9 sets, daily range): BP systolic 91–128; BP diastolic 72–80; PULSE 94–106; RESP 18–22; TEMP 97.2–98.4; O2SAT 92–100
[2018-01-31] MEDS: DILTIAZEM HCL 30 MG TAB PO SCH ×3 (03:19→16:43)
[2018-01-31] MEDS: oxyCODONE/ACETAMINOPHEN 5 MG/325 MG TAB PO PRN (03:20)
[2018-01-31] MEDS: METOCLOPRAMIDE HCL 10 MG/2 ML VIAL IV PUSH SCH ×2 (05:19→15:37)
[2018-01-31] MEDS: ERYTHROMYCIN EC 250 MG TABEC PO SCH ×2 (05:19→15:37)
[2018-01-31] MEDS: METOPROLOL TARTRATE 25 MG TAB PO SCH ×2 (05:19→15:37)
[2018-01-31] MEDS: FREE WATER G-TUBE SCH ×3 (05:19→12:00)
[2018-01-31] MEDS: LEVOTHYROXINE SODIUM 125 MCG TAB PO SCH (05:19)
[2018-01-31] MEDS: RESP: ALBUTEROL 2.5 MG/IPRATROPIUM 0.5 MG NEB (SCH) NEB ×3 (05:22→15:58)
[2018-01-31 05:49] LABS: BICARBONATE 20.5 MEQ/L (21.0-32.0); CALCIUM 7.8 MG/DL (8.5-10.1); CREATININE 2.04 MG/DL (0.60-1.30)
[2018-01-31] MEDS: DOCUSATE SODIUM 50 MG/SENNA 8.6 MG TAB PO SCH (09:26)
[2018-01-31] MEDS: DIGOXIN SOLUTION 0.125 MG/2.5 ML CUP PO SCH (09:26)
[2018-01-31] MEDS: AMIODARONE 200 MG TAB PO SCH (09:26)
[2018-01-31] MEDS: QUEtiapine FUMARATE 25 MG TAB PO SCH (09:26)
[2018-01-31] MEDS: APIXABAN 2.5 MG TABLET PO SCH (09:26)
[2018-01-31] MEDS: LANSOPRAZOLE SOLUTAB 30 MG TAB NG SCH (09:26)
[2018-01-31] MEDS: BETHANECHOL CHL 25 MG TAB PO SCH (09:26)
[2018-01-31] MEDS: ALLOPURINOL 100 MG TAB PO SCH (09:26)
[2018-01-31] MEDS: LACTULOSE SYRUP 20 GM/30 ML CUP PO SCH ×2 (09:26→13:12)
[2018-01-31] MEDS: POLYETHYLENE GLYCOL 17 GM PKG PO SCH (09:26)
[2018-01-31] MEDS: SERTRALINE HCL 50 MG TAB PO SCH (09:26)
[2018-01-31] MEDS: INSULIN ASPART SUPPLEMENTAL SCALE SQ SCH ×3 (09:26→16:43)
[2018-01-31] MEDS: JUVEN POWDER 1 PACK G-TUBE SCH (09:27)
[2018-01-31] MEDS: INSULIN DETEMIR 100 UNITS/ML VIAL SQ SCH (09:27)
--- NOTE | 2018-01-31 13:18 | HHI.PR ---
Subjective Remarks awake and alert denies any pain or shortness of breath- but appears tachypneic abdomen - distended- tympanitic on exam + bowel sounds Objective Vitals Vital Signs Date Time Temp Pulse Resp B/P (MAP) Pulse Ox O2 Delivery O2 Flow Rate FiO2 01/31/18 12:03 95 Nasal Cannula 3.00 01/31/18 08:14 98.4 100 22 127/80 (96) 92 01/31/18 04:00 97.2 106 18 91/72 (78) 94 01/31/18 03:57 105 01/31/18 00:00 97.2 105 18 99/79 (86) 100 01/31/18 00:00 106 01/30/18 22:28 95 Nasal Cannula 3.00 01/30/18 20:00 97.4 110 18 136/85 (102) 95 01/30/18 20:00 111 01/30/18 20:00 Nasal Cannula 2.00 01/30/18 16:00 98.3 110 20 121/86 (98) 97 01/30/18 16:00 110 I/O 01/30/18 01/30/18 01/30/18 01/31/18 01/31/18 01/31/18 07:00 15:00 23:00 07:00 15:00 23:00 Intake Total 0 ml 400 ml Output Total 325 ml 800 ml Balance -325 ml 400 ml -800 ml Intake Oral 0 ml 0 ml IV Total 400 ml Output Urine Total 325 ml 800 ml # Bowel Movements 0 2 Result Diagram: 01/31/18 0509 Imaging Last Impressions Chest X-Ray 01/14/18 0000 Signed Impressions: Service Date/Time: Sunday, January 14, 2018 07:34 - CONCLUSION: Increasing interstitial edema otherwise stable. Tee Jimenes MD FACR Abdomen X-Ray 01/07/18 0600 Signed Impressions: Service Date/Time: Sunday, January 07, 2018 04:29 - CONCLUSION: Possible slight interval improvement in gaseous distention of bowel Lito Adkins MD Abdomen/Pelvis CT 01/04/18 0000 Signed Impressions: Service Date/Time: Thursday, January 04, 2018 10:34 - CONCLUSION: 1. Abnormal bowel gas pattern most characteristic of an ileus. There is a small amount of ascitic fluid in right paracolic gutter and pelvis. 2. Bilateral pleural effusions right greater than left with consolidation in both posterior lung bases. 3. Nasogastric tube in place with the tip in the proximal duodenum. 4. Mild diverticulosis. John Neville MD Renal Ultrasound 01/01/18 0000 Signed Impressions: Service Date/Time: December 18:16 - CONCLUSION: 1. No evidence of hydronephrosis. 2. No new or significant changes compared to the prior exam 3. 2.2 cm right renal cyst. Luiz Frey MD Objective Remarks awake and alert, ff commands, stated his name, "[facility]", "I'm alright" anicteric dry oral mucosa no nuchal rigidity decrease breath sounds, + basal rales regular rhythm abdomen soft, good bowel sounds, no guarding. PEG in place condom catheter in place extremities trace pretibial edema Procedures 01/29- PEG placement A/P Problem List: (1) Acute on chronic systolic CHF (congestive heart failure) ICD Code: I50.23 - Acute on chronic systolic (congestive) heart failure (2) PAF (paroxysmal atrial fibrillation) ICD Code: I48.0 - Paroxysmal atrial fibrillation (3) Acute kidney injury superimposed on chronic kidney disease ICD Code: N17.9 - Acute kidney failure, unspecified; N18.9 - Chronic kidney disease, unspecified (4) Hypothyroidism ICD Code: E03.9 - Hypothyroidism Status: Acute (5) Diabetes ICD Code: E11.9 - Diabetes Status: Chronic (6) Hyperkalemia ICD Code: E87.5 - Hyperkalemia Status: Acute Assessment and Plan This is a pleasant 72 y/o male with Atrial Fibrillation with RVR, underwent Cardiac Ablation, developed respiratory failure and was postoperatively intubated, was in Intensive care unit, Status post PEA arrest. Concern for aspiration event. Patient was extubated. Prolonged ICU course. He has been downgraded to the floor. Patient with profound encephalopathy, confused, ? anoxic injury. Not cooperating with treatment. not eating or drinking enough, may need PEG tube placement, palliative care ff Acute hypoxic and hypercarbic respiratory failure MUNA -nocturnal CPAP 8 cm H2O Moderate right pleural effusion Extubated 01/02. reintubated 01/07 during PEA arrest, extubated again 01/12/18 wean fio2 for goal spo2 > 90% Nebs as needed EzPAP, Acapella get CXRnow - may need IV diuresis- give 20 mg IV x 1 now Chronic diastolic heart failure, with exacerbation ejection fraction 45-50% recurrent atrial fibrillation with rapid ventricular response s/p PEA arrest 01/07 Status post ablation for A. fib/flutter Hypertension Dyslipidemia Chronic apixaban use Normocytic normochromic anemia Currently renally dose of 2.5 mg twice daily- on hold for PEg and patient refusing po meds Monitor CBC daily. Follow trends Continue amiodarone 200 mg by mouth daily Received IV digoxin and IV metoprolol 01/14 digoxin 0.125 mg p.o. daily Increase Cardizem 60 mg p.o. every 6 hours. Holding diltiazem 240 mg p.o. daily/ home medication. ADD BB for additional rate control- Lopressor 12.5 mg /GT q 8 Continue atorvastatin 40 mg p.o. daily for his lipidemia At home on fish oil/cholecalciferol 1200/1000 1 tablet twice daily/home medication Holding ramipril 5 mg p.o. daily for hypertension with acute kidney injury Dr. Ramirez evaluated no further plans at this time Encephalopathy,? Anoxic injury:- today more awake Depression/anxiety Chronic narcotic use continue sertraline 50 mg twice daily/home medication for depression Continue pramipexole 0.5 mg p.o. daily for extrapyramidal side effects Currently holding buspirone 5 mg 3 times daily anxiety On oxycodone/acetaminophen 5/325 1 - 2 tablets every 4 hours as needed pain PT/OT/speech Gastroesophageal reflux disease Elevated transaminases Ileus Sigmoid diverticulosis Internal/external hemorrhoids S/ PEG 01/29 Abdominal distention - get Abdominal XRay - hold tube feedings for now Advance diet per speech therapy recommendations. Not tolerating enough p.o. nutrition yet. Docusate sodium/senna 1 tablet twice daily for bowel regimen with polyethylene glycol 17 g twice daily and lactulose 30 cc 4 times daily Follow transaminases intermittently is likely congestion. Further workup and On metoclopramide 5 mg IV every 8 hours and erythromycin [address] abdomen/pelvis revealed dilated small and large bowel. Colonoscopy by Dr. Bella/revealed sigmoid diverticulosis. Decompression of colon. Internal and external hemorrhoids. tube feedings ordered- dietitian consult BPH/overflow Continue doxazosin 4 mg daily and bethanechol 25 mg daily Diabetes mellitus Hypothyroidism Low testosterone Currently on insulin detemir 4 units twice daily with NovoLog sliding scale insulin/low regimen before meals at bedtime At home on insulin glargine 12 units twice daily with sliding scale insulin Continue levothyroxine 125 mcg p.o. daily. TSH 3.06 Holding testosterone Even some uncontrolled blood sugar the patient is not eating will wait for PEG tube placement. Acute kidney injury likely secondary to cardiorenal syndrome Renal cyst right 2.2 cm Followed by nephrology. Monitor urine output Accurate I's and O's. stable Renal ultrasound with no hydronephrosis. Right renal cyst 2.2 cm. Rare eosinophils urine. Debility: - Secondary to comorbid conditions above. Patient will need SNF placement. Continue rehab efforts. Overall Poor short term prognosis. Prophylaxis -GI -Lansoprazole -DVT -SCD/apixaban Discharge Planning awaiting final by Palliative care probable on Friday today the Caregiver won't be able to come during the discharge Hours Micheal Adame MD Jan 31, 2018 13:18
--- NOTE | 2018-01-31 15:03 | RADRPT ---
EXAM DATE/TIME: 01/31/2018 14:13 [facility] COMPARISON: CHEST SINGLE AP, January 14, 2018, 7:34. INDICATIONS : Shortness of breath. Congestive heart failure. MEDICAL HISTORY : Cardiovascular disease. Cerebrovascular disease. Hypertension. GERD. Diabetes. SURGICAL HISTORY : Cholecystectomy. ENCOUNTER: Subsequent ACUITY: 1 month PAIN SCORE: Non-responsive. LOCATION: Bilateral chest FINDINGS: The heart and mediastinal structures appear enlarged. There is diffuse increase interstitial markings . There is more focal increased density in the left upper lung. The costophrenic angles are grossly c lear. CONCLUSION: Diffuse increase interstitial markings and hazy density throughout the lungs likely related to edema. Some degree of pleural effusions could also be contributing to the haziness. The increased mild foca l density in the left upper lobe is likely related to some superimposed atelectasis or consolidation in this region. Lito Dorado MD on January 31, 2018 at 14:58 Board Certified Radiologist. This report was verified electronically.
[2018-01-31] MEDS ORDERED: FUROSEMIDE 20 MG/2 ML VIAL IV PUSH SCH (18:15)
--- NOTE | 2018-01-31 19:07 | RADRPT ---
EXAM DATE/TIME: 01/31/2018 18:40 [facility] COMPARISON: No previous studies available for comparison. INDICATIONS : Shortness of breath. Congestive heart failure. MEDICAL HISTORY : Cardiovascular disease. Cerebrovascular disease. Hypertension. GERD. SURGICAL HISTORY : Cholecystectomy. ENCOUNTER: Subsequent ACUITY: 1 month PAIN SCORE: Non-responsive. LOCATION: Bilateral upper quadrant and lower quadrent FINDINGS: Supine and upright views of the abdomen were performed. Gaseous distention of what appears to be larg e bowel. No air fluid levels are seen. No abnormal masses, calcifications, or organomegaly is seen. Minimal bibasilar densities. No evidence of free intraperitoneal gas. The osseous structures are u nremarkable. CONCLUSION: 1. Gaseous distention of bowel loops possibly ileus Robin Quigley MD on January 31, 2018 at 19:04 Board Certified Radiologist. This report was verified electronically.
--- NOTE | 2018-01-31 19:34 | HHI.PR ---
Addendum to Inpatient Note Addendum Reason: Additional Documentation Additional Information S: Medical team distribution coordinator called at approximately 1910 for [facility] secondary to respiratory distress. Per report, patient was conversing and at this baseline prior to going for a KUB and CXR. Upon returning to the floor at approximately 1850, patient did not appear at his baseline with worsening respiratory status and ABD distension. Upon entering the room the patient was non-verbal with minimal extremity movements. Patient was unable to converse when questioned, but does intermittently moan to tactile stimulation. O: VITALS: 97.6 degrees, BP 76/52, HR 56, RR 30 at 83% on nonrebreather. GENERAL: Elderly male lying in bed in distress that is nonverbal. SKIN: Cold and dry. No obvious trauma. Skin with mottled appearance. (Per report , sacral room that does produce foul odor) HEENT: Atraumatic, normocephalic with extraocular motions not intact. Pupils fixed with anisocoria; L eye at approximately miotic to approximately 3mm and R eye to approximately 7cm. Both pupils reactive to light but sluggish BL. No LAD or JVD appreciated visually. Oropharynx patent with poor dentition. Limited exam due to respiratory distress. CARDIOVASCULAR: Bradycardic rate with irregular rhythm including a 2-3 second pauses on multiple occasions. No obvious murmurs, gallops, or rubs. No pulses appreciated in all four extremities. RESPIRATORY: Clear to auscultation bilaterally with no crackles, wheezes, or rhonchi. No increaed work of breathing. GASTROINTESTINAL: Abdomen distended with guarding. No BS appreciated. Patient unable to participate in tenderness, rebound tenderness, and Clark's sign tests. No fluid wave appreciated. MUSCULOSKELETAL: No obvious cyanosis or edema. Unable to examine calf tenderness and Avinash's signs. NEURO/PSYCH: Patient awake, but unable to evaluate alertness or orientation. Patient nonverbal, but does moan briefly to tactile stimulation with sternal rub and then to verbal stimulation during exam. GCS: 8 (Flexion to pain, Incomprehensible sounds, Eye response to verbal commands) A/P: Mr. Perez is a 72 y/o M admitted for a prolonged hospitalization including but not limited to acute hypoxic respiratory failure, PEA with arrest, and anoxic encephalopathy currently presents with acute hypoxic respiratory failure. 1. Acute Hypoxic Respiratory Failure -Stat High Pressure Boiler Operator consult for rapid intubation; Discussed with Dr. Cedeno who accepts patient. -Stat CBC, CMP, Lactic Acid, ABG, Troponin/CKMB, EKG. Update 2100: -Patient immediately transferred to [facility]. Dr. Diaz evaluated patient and agreed with immediate intubation. ACLS started and patient intubated. Despite ACLS measures patient did not restore circulation. -Time of was called at 2007. -Please see Dr. Diaz's note for further details. Luis Velez MD R2 Jan 31, 2018 19:34
[2018-01-31] MEDS ORDERED: NOREPINEPHRINE-DEXTROSE DRIP 250 ML IV ONE (19:42)
[2018-01-31] MEDS ORDERED: ROCURONIUM INJ 50 MG/5 ML VIAL ONE (19:43)
[2018-01-31] MEDS ORDERED: MIDAZOLAM HCL 5 MG/ML VIAL (1 ML) ONE (19:46)
--- NOTE | 2018-01-31 20:32 | DEATH SUM ---
Pronouncement Date Pronounced : Jan 31, 2018 Time Of : 20:08 Pronouncement Called to pronounce of patient. Identified patient as Pedro Otto with wrist band MR# [id number]. Patient with no cardiac activity in 2 separate leads and no palpable/auscible cardiac activity. Patient with no spontaneous respirations, no corneal reflex or response to painful stimuli. Pupils fixed and dilated. Preliminary Cause of : Cardiac arrest Eduardo Diaz MD Jan 31, 2018 20:32
--- NOTE | 2018-01-31 20:41 | HHI.CCPN ---
Subjective Remarks/Hospital Course 72-year-old gentleman with multiple medical problems including morbid obesity, obstructive sleep apnea, diabetes mellitus, and chronic kidney insufficiency, underwent cardiac ablation for uncontrolled A. fib. Patient was intubated for procedure, and is transferred to ICU postprocedure for weaning of the mechanical ventilation due to increased abdominal girth. 01/01: Afebrile. Patient extremely agitated with weaning sedation. Currently on PSV trial.. Chest x-ray revealed moderate size right pleural effusion. Currently in sinus rhythm 01/02: Started on BiPAP overnight 09/09 at 50% Furosemide gtt not initiated until this AM. Will attempt to diurese. Will possibly need thoracentesis in a.m. when off apixaban 24 hours. Possible ileus on CAT scan. Started on metoclopramide 01/03: Resting comfortably in bed in no acute distress. Abdomen appears more distended today. Currently on high flow nasal cannula 35 L 70% which is off the side not in his nares satting 89%. 01/04: -1650 from NG tube overnight. Low blood sugar this a.m. noted. Will hold insulin detemir give D5 one half normal saline along with extra potassium chloride today. CT abdomen/pelvis pending. Positive BM overnight. Abdomen remains distended.. BUN and creatinine are slowly decreasing. 01/05: Another emesis today. Will likely need EGD/colonoscopy in a.m. Holding apixaban. Did not tolerate mag citrate. Abdomen remains distended without BM. 01/06: Status post colonoscopy today with decompression. Abdomen is less distended. Remains on nasal cannula. Looks and appears more comfortable. 01/07: PEA arrest overnight. now intubated and back in afib RVR. cardiac arrest may have been secondary to aspiration, given feculent material suctioned out of airway post-intubation. 01/08: off vasopressors. diuresing on lasix drip. large BM overnight. remains intubated. 01/09: Finally emptying his colon. Continued good diuresis but unable to wean from ventilator. 01/10: Improving gas exchange. Stop free water replacement. Continue lasix drip. 01/11: Steady improvement in gas exchange. Tolerating SBTs better. Continue Lasix gtt, replete lytes. 01/12: Sedation is on hold. Opens eyes follows commands but weakly remains lethargic. Tolerating CPAP. UO 1.7L in 24 hours, creat improving 01/13: Extubated yesterday tolerating well. Oriented to person and place and somewhat to date. Lasix infusion discontinued yesterday start scheduled IV Lasix 40 every 12. Give Diamox 500 mg IV 1 due to contraction alkalosis. Creat 1.59, slightly improved 01/14: LATE ENTRY NOTE FOR 01/15/18: Patient had overnight trouble with clearing secretion, tachypneic. Chest exam reveals coarse rhonchi and crackles. Once secretions are cleared patient breathing more comfortably. Requiring frequent NG tube suctioning. Chest x- ray showing pulmonary vascular congestion. IV Lasix 40 mg given metoprolol 2.5 mg for A. fib rate control 01/15: Breathing more comfortably. Good oxygenation. Clearing secretions well. Chest coarse rhonchi improved. Urine output excellent with diuresis. Heart rate is better controlled. Will place on scheduled digoxin p.o., and restart the Cardizem SUBJECTIVE: 01/16: oxygenation improving. awake. following commands. good diuresis continues. 01/31: RECONSULT NOTE: reconsulted for acute hypoxic respiratory failure. rapid response from floor around 19:30. immediately met patient in ICU in active respiratory distress. emergently intubated patient- patient was still moving all extremities and required sedation in order to facilitate intubation. immediately after intubation, patient became acutely bradycardic and pulseless. ACLS was instituted. despite best efforts, spontaneous circulation was not obtained. time of 20:08. Objective Vital Signs Date Time Temp Pulse Resp B/P (MAP) Pulse Ox O2 Delivery O2 Flow Rate FiO2 01/31/18 18:00 99 01/31/18 16:50 96 Nasal Cannula 2.00 01/31/18 16:14 98.4 22 126/72 (90) 01/29/18 08:00 21 Intake and Output 01/31/18 01/31/18 02/01/18 08:00 16:00 00:00 Intake Total 0 ml Output Total 800 ml 600 ml Balance -800 ml -600 ml Result Diagram: 01/31/18 0509 Other Results Laboratory Tests Test 01/31/18 00:00 01/31/18 14:27 Blood Gas Puncture Site RT BRACHIAL RT RADIAL Blood Gas Patient Temperature 98.6 98.6 Blood Gas HCO3 18 mmol/L (22-26) 19 mmol/L (22-26) Blood Gas Base Excess -9.3 mmol/L (-2-2) -5.0 mmol/L (-2-2) Blood Gas Oxygen Saturation 36 % (90-100) 90 % (90-100) Arterial Blood pH 7.16 (7.380-7.420) 7.44 (7.380-7.420) Arterial Blood Partial Pressure CO2 53 mmHg (38-42) 28 mmHg (38-42) Arterial Blood Partial Pressure O2 31 mmHg (61-120) 65 mmHg (61-120) Arterial Blood Oxygen Content 5.7 Vol % (12.0-20.0) 13.5 Vol % (12.0-20.0) Arterial Blood Carboxyhemoglobin 0.6 % (0-4) 1.2 % (0-4) Arterial Blood Methemoglobin 0.9 % (0-2) 1.0 % (0-2) Blood Gas Hemoglobin 11.2 G/DL (12.0-16.0) 10.6 G/DL (12.0-16.0) Oxygen Delivery Device NRB NASAL CANNULA Blood Gas Liter Flow 15 L/M 3 L/M Imaging Last Impressions Abdomen X-Ray 01/06/18 0600 Signed Impressions: Service Date/Time: Saturday, January 06, 2018 04:38 - CONCLUSION: Persistent prominent gaseous distention of bowel throughout Lito Adkins MD Abdomen/Pelvis CT 01/04/18 0000 Signed Impressions: Service Date/Time: Thursday, January 04, 2018 10:34 - CONCLUSION: 1. Abnormal bowel gas pattern most characteristic of an ileus. There is a small amount of ascitic fluid in right paracolic gutter and pelvis. 2. Bilateral pleural effusions right greater than left with consolidation in both posterior lung bases. 3. Nasogastric tube in place with the tip in the proximal duodenum. 4. Mild diverticulosis. John Neville MD Chest X-Ray 01/03/18 0000 Signed Impressions: Service Date/Time: Wednesday, January 03, 2018 09:20 - CONCLUSION: No significant change. Bilateral parenchymal opacities remain with apparent right effusion. John Neville MD Renal Ultrasound 01/01/18 0000 Signed Impressions: Service Date/Time: December 18:16 - CONCLUSION: 1. No evidence of hydronephrosis. 2. No new or significant changes compared to the prior exam 3. 2.2 cm right renal cyst. Luiz Frey MD Procedures 01/29- PEG placement Objective Remarks patient was in extremis on arrival, ashen, obtunded, but moving all 4 extremities. unable to intubate without sedation. abdomen severely distended. g- tube in place. extremities mottled, cool, poorly perfused. A/P Assessment and Plan Assessment: 72yM s/p afib ablation which has been complicated by 3 episodes of hypoxic respiratory failure and s/p PEA arrest twice. despite our aggressive measures, we were unable to successfully restore circulation. patient at 20:08. Active Problems: severe abdominal distension colonic ileus probable aspiration acute hypoxic respiratory failure cardiogenic shock PEA arrest See the above documented narrative of services provided in the attempted resuscitation of the patient. This patient remained critically ill with multiple organ systems which were a threat to life. I spent in excess of 30 minutes discontinuously in the care and management of this patient. This time did not include time I spent intubating the patient. this time is exclusive of procedures, and includes, but is not limited to, evaluation of the patient, review of the medical record, discussions with family, consultants, nursing staff, or respiratory therapy, and documentation in the medical record. Eduardo Diaz MD Jan 31, 2018 20:41
--- NOTE | 2018-01-31 20:45 | HHI.DS ---
Summary Note Date of : Jan 31, 2018 Time Of : 20:08 Admission Date Dec 28, 2017 at 06:49 Admitting Diagnosis congestive heart failure, hyperkalemia, elevated troponin Diagnosis at Time of : (1) Acute on chronic systolic CHF (congestive heart failure) ICD Code: I50.23 - Acute on chronic systolic (congestive) heart failure (2) PAF (paroxysmal atrial fibrillation) ICD Code: I48.0 - Paroxysmal atrial fibrillation (3) Acute kidney injury superimposed on chronic kidney disease ICD Code: N17.9 - Acute kidney failure, unspecified; N18.9 - Chronic kidney disease, unspecified (4) Hypothyroidism ICD Code: E03.9 - Hypothyroidism (5) Diabetes ICD Code: E11.9 - Diabetes (6) Hyperkalemia ICD Code: E87.5 - Hyperkalemia Procedures 01/29- PEG placement CBC/BMP: 01/31/18 0509 Significant Findings Laboratory Tests Test 01/30/18 11:54 01/31/18 00:00 01/31/18 05:09 01/31/18 14:27 Creatinine 1.58 MG/DL (0.60-1.30) 2.04 MG/DL (0.60-1.30) Random Glucose 218 MG/DL (74-106) 207 MG/DL (74-106) Total Protein 5.7 GM/DL (6.4-8.2) Albumin 1.8 GM/DL (3.4-5.0) Calcium Level 7.8 MG/DL (8.5-10.1) 7.8 MG/DL (8.5-10.1) Estimat Glomerular Filtration Rate 43 ML/MIN (>89) 32 ML/MIN (>89) Blood Gas HCO3 18 mmol/L (22-26) 19 mmol/L (22-26) Blood Gas Base Excess -9.3 mmol/L (-2-2) -5.0 mmol/L (-2-2) Blood Gas Oxygen Saturation 36 % (90-100) Arterial Blood pH 7.16 (7.380-7.420) 7.44 (7.380-7.420) Arterial Blood Partial Pressure CO2 53 mmHg (38-42) 28 mmHg (38-42) Arterial Blood Partial Pressure O2 31 mmHg (61-120) Arterial Blood Oxygen Content 5.7 Vol % (12.0-20.0) Blood Gas Hemoglobin 11.2 G/DL (12.0-16.0) 10.6 G/DL (12.0-16.0) Blood Urea Nitrogen 21 MG/DL (7-18) Sodium Level 131 MEQ/L (136-145) Carbon Dioxide Level 20.5 MEQ/L (21.0-32.0) Test 01/31/18 18:10 B-Type Natriuretic Peptide 1353 PG/ML (0-100) Imaging Last Impressions Abdomen X-Ray 01/06/18 0600 Signed Impressions: Service Date/Time: Saturday, January 06, 2018 04:38 - CONCLUSION: Persistent prominent gaseous distention of bowel throughout Lito Adkins MD Abdomen/Pelvis CT 01/04/18 0000 Signed Impressions: Service Date/Time: Thursday, January 04, 2018 10:34 - CONCLUSION: 1. Abnormal bowel gas pattern most characteristic of an ileus. There is a small amount of ascitic fluid in right paracolic gutter and pelvis. 2. Bilateral pleural effusions right greater than left with consolidation in both posterior lung bases. 3. Nasogastric tube in place with the tip in the proximal duodenum. 4. Mild diverticulosis. John Neville MD Chest X-Ray 01/03/18 0000 Signed Impressions: Service Date/Time: Wednesday, January 03, 2018 09:20 - CONCLUSION: No significant change. Bilateral parenchymal opacities remain with apparent right effusion. John Neville MD Renal Ultrasound 01/01/18 0000 Signed Impressions: Service Date/Time: December 18:16 - CONCLUSION: 1. No evidence of hydronephrosis. 2. No new or significant changes compared to the prior exam 3. 2.2 cm right renal cyst. Luiz Frey MD Hospital Course 72-year-old gentleman with multiple medical problems including morbid obesity, obstructive sleep apnea, diabetes mellitus, and chronic kidney insufficiency, underwent cardiac ablation for uncontrolled A. fib. Patient was intubated for procedure, and is transferred to ICU postprocedure for weaning of the mechanical ventilation due to increased abdominal girth. 01/01: Afebrile. Patient extremely agitated with weaning sedation. Currently on PSV trial.. Chest x-ray revealed moderate size right pleural effusion. Currently in sinus rhythm 01/02: Started on BiPAP overnight 09/09 at 50% Furosemide gtt not initiated until this AM. Will attempt to diurese. Will possibly need thoracentesis in a.m. when off apixaban 24 hours. Possible ileus on CAT scan. Started on metoclopramide 01/03: Resting comfortably in bed in no acute distress. Abdomen appears more distended today. Currently on high flow nasal cannula 35 L 70% which is off the side not in his nares satting 89%. 01/04: -1650 from NG tube overnight. Low blood sugar this a.m. noted. Will hold insulin detemir give D5 one half normal saline along with extra potassium chloride today. CT abdomen/pelvis pending. Positive BM overnight. Abdomen remains distended.. BUN and creatinine are slowly decreasing. 01/05: Another emesis today. Will likely need EGD/colonoscopy in a.m. Holding apixaban. Did not tolerate mag citrate. Abdomen remains distended without BM. 01/06: Status post colonoscopy today with decompression. Abdomen is less distended. Remains on nasal cannula. Looks and appears more comfortable. 01/07: PEA arrest overnight. now intubated and back in afib RVR. cardiac arrest may have been secondary to aspiration, given feculent material suctioned out of airway post-intubation. 01/08: off vasopressors. diuresing on lasix drip. large BM overnight. remains intubated. 01/09: Finally emptying his colon. Continued good diuresis but unable to wean from ventilator. 01/10: Improving gas exchange. Stop free water replacement. Continue lasix drip. 01/11: Steady improvement in gas exchange. Tolerating SBTs better. Continue Lasix gtt, replete lytes. 01/12: Sedation is on hold. Opens eyes follows commands but weakly remains lethargic. Tolerating CPAP. UO 1.7L in 24 hours, creat improving 01/13: Extubated yesterday tolerating well. Oriented to person and place and somewhat to date. Lasix infusion discontinued yesterday start scheduled IV Lasix 40 every 12. Give Diamox 500 mg IV 1 due to contraction alkalosis. Creat 1.59, slightly improved 01/14: LATE ENTRY NOTE FOR 01/15/18: Patient had overnight trouble with clearing secretion, tachypneic. Chest exam reveals coarse rhonchi and crackles. Once secretions are cleared patient breathing more comfortably. Requiring frequent NG tube suctioning. Chest x- ray showing pulmonary vascular congestion. IV Lasix 40 mg given metoprolol 2.5 mg for A. fib rate control 01/15: Breathing more comfortably. Good oxygenation. Clearing secretions well. Chest coarse rhonchi improved. Urine output excellent with diuresis. Heart rate is better controlled. Will place on scheduled digoxin p.o., and restart the Cardizem 01/16: oxygenation improving. awake. following commands. good diuresis continues. 01/31: RECONSULT NOTE: reconsulted for acute hypoxic respiratory failure. rapid response from floor around 19:30. immediately met patient in ICU in active respiratory distress. emergently intubated patient- patient was still moving all extremities and required sedation in order to facilitate intubation. immediately after intubation, patient became acutely bradycardic and pulseless. ACLS was instituted. despite best efforts, spontaneous circulation was not obtained. time of 20:08. Eduardo Diaz MD Jan 31, 2018 20:45
--- NOTE | 2018-01-31 20:48 | PD.PROCEDR ---
Procedure Note Procedure Endotracheal Intubation Diagnosis: Acute hypoxic respiratory failure Indications: Acute hypoxic respiratory failure Consent: Emergent Anesthesia: Versed 10 mg IV, rocuronium 100 mg IV Description of the Procedure: Patient was transferred by rapid response emergently to the ICU for acute hypoxic respiratory failure. When I evaluated the patient he was obtunded, but moving all 4 extremities. Initial attempt was made with laryngoscopy without medications due to the fact that the patient was acutely in extremis and hemodynamically unstable. However, the patient was biting the laryngoscope and an inadequate view was obtained. Given the patient's abdominal distention rapid sequence was chosen. I do not have immediate and emergent access to the patient's laboratory data so 10 of Versed and 100 rocuronium was given IV for RSI. Pre-oxygenation was performed using a [id number]. Anesthesia was induced via rapid sequence. A Angeli #4 was used for laryngoscopy and a Grade IIB view was obtained with cricoid pressure. A 8.5 cuffed endotracheal tube was inserted atraumatically through the vocal cords. Confirmation of correct endotracheal tube placement was made by equal and bilateral breath sounds and colorimetric CO2 detection. The endotracheal tube was secured at 24 cm at the teeth. After intubation, the patient was noted to be severely bradycardic. Pulses were checked and were absent. ACLS was instituted. Please see separate documentation for the CODE BLUE event. During the code, the endotracheal tube was confirmed between the cords again by colorimetric CO2 detection and by visual laryngoscopy as well as equal bilateral breath sounds and all re- confirmed placement of the ET tube in the trachea. I personally performed the procedure. Eduardo Diaz MD Jan 31, 2018 20:48
[2018-01-31] MEDS ORDERED: INSULIN DETEMIR 100 UNITS/ML VIAL SQ SCH (21:00)
[2018-01-31] MEDS ORDERED: SODIUM BICARBONATE 8.4% INJ 50 MEQ/50 ML SYR IV ONE (21:19)
[2018-01-31] MEDS ORDERED: EPINEPHrine HCL (1:10,000) 1 MG/10 ML SYRINGE IV ONE (21:19)
--- NOTE | 2018-02-01 00:07 | EKG ---
Date Performed: 01/31/2018 Time Performed: 19:25:20 PTAGE: 72 years EKG: CONSIDER ACUTE ST ELEVATION OR Probable sinus bradycardia with PAC(s) with 1st degr ee A-V block. Baseline artifact affects reading Possible left atrial abnormality Right axis deviation Right bundle branch block Septal ST elevation, CONSIDER ACUTE INFARCT, most likely due to RBBB Infer ior/lateral ST-T changes suggest myocardial injury/ischemia Generalized low QRS voltages Abnormal ECG PREVIOUS TRACING : 01/01/2018 11.02 Since the previous tracing, no significant change noted charisse oglesby baseline artifact makes comparison difficult DOCTOR: Terry Adler Interpretating Date/Time 02/01/2018 00:06:02
--- NOTE | 2018-02-24 14:23 | PD.CARD ---
Atrial Fibrillation Ablation PROCEDURE DATE: Dec 31, 2017 PROCEDURES PERFORMED: 1. Electrophysiology study on Isuprel infusion 2. CS cannulation 3. 3-D mapping 4. Transseptal approach 5. Right and left heart catheterization 6. Intracardiac echo 7. Radiofrequency ablation of atrial fibrillation 8. Pulmonary vein isolation 9. Posterior wall ablation 10. Mitral valve isolation 11. Mitral line creation 12. Left atrial tachycardia ablation 13. Roof line creation 14. Floor line creation 15. Anterior wall ablation 16. Left atrial appendage isolation INDICATIONS FOR THE PROCEDURE Mr. Otto is a 72-year-old male with atrial fibrillation, very symptomatic, heart rate difficult to control despite multiple medications referred for electrophysiology study and ablation. The risks, the nature and the benefits of the procedure were clearly stated to him. The risks include pneumothorax, cardiac perforation, stroke, need for open heart surgery and even . The patient understood and agreed to proceed. DESCRIPTION OF THE PROCEDURE IN DETAIL As written informed consent was obtained prior to esophageal echocardiogram, the patient was kept on the table where he was prepped and draped in the usual sterile fashion. Conscious sedation was initiated and maintained throughout the procedure by the anesthesiologist. Once sedation was verified, the right and left inguinal areas were anesthetized with 2% Xylocaine. Using modified Seldinger technique, the left femoral vein was cannulated on three occasions, three guidewires were advanced. Over the wire a 6, 7 and a 10-[place] were advanced. Then the left femoral artery was cannulated on one occasion, one guidewire was advanced. Over the wire a 4-[place] was advanced. Then the right femoral vein was cannulated on one occasion, one guidewire was advanced. Over the wire a 8-[place] was advanced. Then under fluoroscopic guidance through the 6 and 7-[place], two 5-[place] curved quadripolar electrophysiology catheters were advanced and placed around the His as well as coronary sinus. Basic interval was measured. The patient was in atrial fibrillation. Through the 10-[place], a Cordis Singer AcuNav intracardiac echo catheter was advanced and placed at the right atrium. Multiple view was obtained. There was no pericardial effusion, pulmonary vein was seen, atrial septal was visualized. Then the 8-[place] in the right femoral vein was exchanged for Agilis transseptal sheath that was placed all the way to the superior vena cava. Through the sheath a Jose needle was advanced, then the sheath, the dilator and the needle were progressed until foci engaged. Once engaged, the needle was advanced. RF was delivered for 2 seconds. I was able to cross into the left atrium. Once the needle crossed, the dilator was advanced. Once the dilator crossed, the sheath was advanced. Once the sheath crossed, the dilator and the needle were removed. At this point I did flood the system and fluid movement was seen in the left atrium the indicates the sheath is in good position. The patient already received 10,000 units of heparin. The goal is to keep an ACT around 350 during ablation. Then through the sheath a St. Pop 20 pulse circumferential catheter was advanced. Using britebill endocardial solution mapping system, a two-dimensional configuration of the left atrium was obtained. Points were taken at the left superior and inferior veins, right superior and inferior veins, mitral valve, and appendages. Then through the sheath a St. Pop TactiCath 65cm 3.5mm irrigated tipped mapping and radiofrequency ablation catheter was advanced. Esophageal probe was placed temperature monitoring during ablation. When it increased to 0.5 degrees Celsius above baseline, I moved to a different area of the atrium. First I did make a big [place] around the veins. There was no significant signal in the left superior vein. Posterior was ablated. Then a roof line was created, a floor line was created, a mitral line was isolated, then the mitral valve was isolated. Left atrioal appendage was isolated At that point the patient was in left atrial tachycardia. tachycardia was mapped I did create a line from the floor to the roof area, passing by the left atrial appendage. Then the right superior and inferior veins were isolated. While ablating at the lateral wall, patient tachycardia cycle lenght prolonged then converted into sinus rhythm. I did remap the atrium. There is no significant signal in the atrium. At that point I did advance the circumferential catheter again into the vein. There was no signal into the vein, pacing from the vein showed no conduction to the atrium. Isuprel infusion was initiated at 10 mcg for over 10 minutes. No tachyarrhythmia was induced, post Isuprel no tachyarrhythmia was induced. At that point the procedure was complete. All catheters were removed, atrial septal sheath was exchanged for 9-[place] , intracardiac echo showed no pericardial effusion. There is still good flow in the pulmonary vein. The patient is going to be transferred to the recovery room. No incident report. The patient tolerated the procedure. Blood loss was minimal. FINDINGS 1. Electrocardiogram: At baseline the patient was in atrial fibrillation, post procedure the patient was in sinus rhythm. 2. Basic interval: Base cycle length was around 480. Post ablation she was around 1020 milliseconds. 3. Tachyarrhythmia: Atrial fibrillation was mapped and ablated. Atrial tachycardia was ablated. The ablation was successful. CONCLUSION Successful electrophysiology study, mapping, radiofrequency ablation of atrial fibrillation, left atrial tachycardia, pulmonary vein isolation, posterior ablation, mitral valve isolation, mitral line creation, roof line creation, floor line creation, left atrial tachycardia. COMMENTS AND RECOMMENDATIONS The patient is going to be transferred to the telemetry unit. Further decision by the managing team. Abhi Garcia MD February 24, 2018 14:23
== END 2018-01-31 21:20 | disposition expired | DRG 273 ==
LOC: NEPE 04:47 → NEDA 06:49 → HCIS 16:10 → N03B 12-31 20:20 → N04A 01-16 16:46 → N03A 01-31 19:47
PROVIDERS: ADMIT Internal Medicine; ATTEND Internal Medicine
PROC: 4A023FZ Measurement of Cardiac Rhythm, Percutaneous Approach (ICD-10-PCS; 2017-12-31)
PROC: 4A0234Z Measurement of Cardiac Electrical Activity, Percutaneous Approach (ICD-10-PCS; 2017-12-31)
PROC: 5A1935Z Respiratory Ventilation, Less than 24 Consecutive Hours (ICD-10-PCS; 2017-12-31)
PROC: 0BH17EZ Insertion of Endotracheal Airway into Trachea, Via Natural or Artificial Opening (ICD-10-PCS; 2017-12-31)
PROC: 02573ZK Destruction of Left Atrial Appendage, Percutaneous Approach (ICD-10-PCS; 2017-12-31)
PROC: 4A023N8 Measurement of Cardiac Sampling and Pressure, Bilateral, Percutaneous Approach (ICD-10-PCS; 2017-12-31)
PROC: 02K83ZZ Map Conduction Mechanism, Percutaneous Approach (ICD-10-PCS; 2017-12-31)
PROC: B246ZZZ Ultrasonography of Right and Left Heart (ICD-10-PCS; 2017-12-31)
PROC: 02573ZZ Destruction of Left Atrium, Percutaneous Approach (ICD-10-PCS; principal; 2017-12-31 17:30)
PROC: 0D9670Z Drainage of Stomach with Drainage Device, Via Natural or Artificial Opening (ICD-10-PCS; 2018-01-05)
PROC: 0D9E8ZZ Drainage of Large Intestine, Via Natural or Artificial Opening Endoscopic (ICD-10-PCS; 2018-01-06)
PROC: 0BH17EZ Insertion of Endotracheal Airway into Trachea, Via Natural or Artificial Opening (ICD-10-PCS; 2018-01-07)
PROC: 5A1955Z Respiratory Ventilation, Greater than 96 Consecutive Hours (ICD-10-PCS; 2018-01-07)
PROC: 02HV33Z Insertion of Infusion Device into Superior Vena Cava, Percutaneous Approach (ICD-10-PCS; 2018-01-07)
PROC: 0DH63UZ Insertion of Feeding Device into Stomach, Percutaneous Approach (ICD-10-PCS; 2018-01-29 14:35)
PROC: 0BH17EZ Insertion of Endotracheal Airway into Trachea, Via Natural or Artificial Opening (ICD-10-PCS; 2018-01-31)
PROC: 5A1935Z Respiratory Ventilation, Less than 24 Consecutive Hours (ICD-10-PCS; 2018-01-31)
DX: I13.0 Hypertensive heart and chronic kidney disease with heart failure and stage 1 through stage 4 chronic kidney disease, or unspecified chronic kidney disease (principal); J95.821 Acute postprocedural respiratory failure; R57.0 Cardiogenic shock; N17.9 Acute kidney failure, unspecified; J15.5 Pneumonia due to Escherichia coli; G93.40 Encephalopathy, unspecified; E87.0 Hyperosmolality and hypernatremia; I50.33 Acute on chronic diastolic (congestive) heart failure; K56.7 Ileus, unspecified; I47.1 Supraventricular tachycardia; E87.3 Alkalosis; E46 Unspecified protein-calorie malnutrition; E87.1 Hypo-osmolality and hyponatremia; F05 Delirium due to known physiological condition; I48.92 Unspecified atrial flutter; L89.154 Pressure ulcer of sacral region, stage 4; I48.0 Paroxysmal atrial fibrillation; R00.1 Bradycardia, unspecified; E87.5 Hyperkalemia; E11.22 Type 2 diabetes mellitus with diabetic chronic kidney disease; E66.01 Morbid (severe) obesity due to excess calories; N18.3 Chronic kidney disease, stage 3 (moderate); M19.90 Unspecified osteoarthritis, unspecified site; F41.9 Anxiety disorder, unspecified; F32.9 Major depressive disorder, single episode, unspecified; H91.90 Unspecified hearing loss, unspecified ear; K21.9 Gastro-esophageal reflux disease without esophagitis; E03.9 Hypothyroidism, unspecified; E78.5 Hyperlipidemia, unspecified; I25.10 Atherosclerotic heart disease of native coronary artery without angina pectoris; G47.33 Obstructive sleep apnea (adult) (pediatric); I45.10 Unspecified right bundle-branch block; K57.30 Diverticulosis of large intestine without perforation or abscess without bleeding; K64.4 Residual hemorrhoidal skin tags; K64.8 Other hemorrhoids; K63.89 Other specified diseases of intestine; R13.10 Dysphagia, unspecified; K31.7 Polyp of stomach and duodenum; D64.9 Anemia, unspecified; D69.6 Thrombocytopenia, unspecified; E83.39 Other disorders of phosphorus metabolism; E86.0 Dehydration; E87.6 Hypokalemia; M81.0 Age-related osteoporosis without current pathological fracture; N28.1 Cyst of kidney, acquired; R47.02 Dysphasia; Z79.4 Long term (current) use of insulin; Z86.73 Personal history of transient ischemic attack (TIA), and cerebral infarction without residual deficits; I25.2 Old myocardial infarction; Z68.39 Body mass index [BMI] 39.0-39.9, adult; Z78.1 Physical restraint status; Z79.891 Long term (current) use of opiate analgesic
CPT/HCPCS: 31500; 36556; 36600; 71045; 74018; 74019; 74176; 76775; 76937; 80048; 80053; 80069; 80162; 82150; 82550; 82552; 82570; 82805; 82948; 83690; 83735; 83880; 84100; 84155; 84300; 84443; 84484; 85002; 85025; 85027; 85610; 85730; 86403; 87070; 87077; 87186; 87205; 87641; 93005; 93312; 93320; 93325; 93613; 93623; 93656; 93662; 94002; 94003; 94150; 94640; 94664; 94667; 94668; 96374; C1730; C1731; C1732; C1759; C1766; C2630; C9113; J0171; J0282; J0330; J0690; J1120; J1160; J1630; J1644; J1815; J1940; J1956; J2212; J2250; J2310; J2370; J2405; J2720; J2765; J3010; J3370; J3475; J3480; J7040; J7050; J7614; P9047